=== PATIENT | male | born 1955 | race Caucasian/White ===

== ENCOUNTER 2018-03-03 07:00 | Day surgery (SDC) | payer OTHER ==
--- NOTE | 2018-02-27 16:42 | RAD REPORT ---
EXAM DESCRIPTION: Kendall Araujo (2 Views)02/27/2018 4:33 pm CLINICAL HISTORY: Hypertension/preop COMPARISON: 2012 FINDINGS: The lungs appear clear of acute infiltrate. The heart is normal size IMPRESSION: No acute abnormalities displayed
[2018-02-27 17:01] LABS: Absolute Lymphocytes (CBC) 1.4 K/uL (0.7-4.9); Absolute Monocytes 0.6 K/uL (0.1-1.3); Absolute Neutrophil 5.7 K/uL (1.8-8.0); Basophils % 1.3 % (0-1.3); Hematocrit 43.9 % (39.6-49.0); Lymphocytes % 16.9 % (15.3-44.8); MCH 27.5 pg (27.0-35.0); MCV 81.1 fL (80-100); MPV 8.7 fL (7.6-11.3); Monocytes % 6.7 % (3.3-12.3); RBC Red Blood Cell Count 5.42 M/uL (4.33-5.43)
[2018-02-27 17:05] LABS: Protime INR 0.96
[2018-02-27 17:11] LABS: Potassium 4.3 mEq/L (3.6-5.0)
--- NOTE | 2018-02-28 06:16 | EKG ---
Test Date: 2018-02-27 Test Time: 16:20:29 Supervisor Park Workers: DELFINO MEASUREMENT RESULTS: Intervals: Rate: 76 TX: 174 QRSD: 108 QT: 380 QTc: 427 [place]: P: 54 TX: 174 QRS: -44 T: 45 INTERPRETIVE STATEMENTS: Normal sinus rhythm Left axis deviation Incomplete right bundle branch block Abnormal ECG Compared to ECG 06/08/2006 03:07:00 Left-axis deviation now present Incomplete right bundle-branch block now present Myocardial infarct finding no longer present Electronically Signed On 02-28-18 06:15:56 CDT by Roderick Almaraz
[2018-03-03] MEDS ORDERED: HEPA 1000U/500MLS 2,000 UNIT/1,000 ML BAG IV ONE (07:08)
[2018-03-03] MEDS ORDERED: ATROPINE SULF 1 MG/10 ML SYR IV ONE (07:08)
[2018-03-03] MEDS ORDERED: LIDOCAINE 1% 20 ML MDV ONE ×2 (07:09→09:18)
[2018-03-03] MEDS ORDERED: NA CHLORIDE 0.9% 500 ML ONE (07:12)
[2018-03-03] MEDS ORDERED: FENTANYL CITR 100 MCG/2 ML ONE (07:53)
[2018-03-03] MEDS ORDERED: MIDAZOLAM HCL 2 MG/2 ML INJ ONE ×2 (07:53→08:02)
[2018-03-03] MEDS ORDERED: HEPARIN 5000 UNIT/ML 1 ML VIAL ONE (08:31)
[2018-03-03] MEDS ORDERED: PRASUGREL (EFFIENT) 10 MG TAB ONE (09:23)
--- NOTE | 2018-03-03 19:36 | OP ---
Surgeon: Roderick Almaraz MD Primary Care Physician: Dr. Grigsby. Procedure: Abdominal angiogram with runoffs and percutaneous transluminal angioplasty of the left po pliteal artery with a stent placement as well. Indications: Severe claudication. Procedure In Detail: The patient was brought to the cardiac labor relations officer in a fasting state and sedated with Versed and fentanyl. Right femoral approach was used. Artery was entered using an 18-gauge nee dle, modified Seldinger technique, 4-Maltese sheath and we used a 4-Maltese sheath to do the initial an giograms. Of course, we anesthetized the area with lidocaine before putting a needle in. Angiogram was done with injection in the descending aorta at the level of the renal arteries. The findings wer e renal arteries, iliacs are all fine. There were no aneurysm and no stenosis in those arteries. In the right artery, the SFA was patent. The popliteal artery had an 80% stenosis and distally, there IS small vessel disease. On the left, stents were patent in the proximal and distal SFA and at the p opliteal artery below the part of the artery that bends when the knee is flexed, there was a 90-95% s tenosis. This was treated with a stent eventually. After making a decision to do the procedure, we gave 5000 units of heparin. We exchanged for a 6-Maltese up and over sheath. We were able to get a g uidewire in place using a 6-Maltese COPELAND catheter. Several other attempts failed with 4-Maltese. We w ere able to put the up and over sheath down to the level of the common femoral artery, proximal to th e old stents. We crossed the lesion with a Glidewire. We pre-dilated with a balloon, 6.0 x 40 [place] a. We withdrew the balloon, took an angiogram. There was a lot of dissection, so we decided to depl oy a stent, a self-expanding stent was the only reasonable choice given that it is in a peripheral ar mariam close to a place that could be compressed. So, we used a 5.0 x 40 stent self deployed. We did not do any post-dilation. It looked great. There was not any need for it. We removed the up and ov er sheath, put a straight sheath, then took an angiogram of the right femoral artery, made the decisi on to close using Angio-Seal, that was done without complications. Estimated blood loss just 10 cc a nd post stenosis of the popliteal artery was 0%. Complications from the procedure were none. FRANK/INGRID Voice ID: [id number] Report ID: [id number]
== END 2018-03-03 13:07 | disposition home or self-care (01) ==
LOC: CCL 07:00
PROVIDERS: ATTEND Internal Medicine
DX: I70.213 Atherosclerosis of native arteries of extremities with intermittent claudication, bilateral legs (principal); I10 Essential (primary) hypertension; E78.2 Mixed hyperlipidemia; E11.9 Type 2 diabetes mellitus without complications; Z82.49 Family history of ischemic heart disease and other diseases of the circulatory system
CPT/HCPCS: 36415; 37226; 71046; 75630; 80048; 82962; 85025; 85610; 85730; 93005; C1725; C1760; C1769; C1887; C1893; J1644; J2250 ×2; J3010; 36200

== ENCOUNTER 2018-04-07 07:44 | Day surgery (SDC) | payer OTHER ==
[2018-04-04 11:09] LABS: Absolute Lymphocytes (CBC) 1.4 K/uL (0.7-4.9); Absolute Monocytes 0.7 K/uL (0.1-1.3); Absolute Neutrophil 5.1 K/uL (1.8-8.0); Basophils % 1.1 % (0-1.3); Eosinophils % 5.3 % (0-4.4); Hematocrit 43.6 % (39.6-49.0); Lymphocytes % 17.7 % (15.3-44.8); MCH 27.2 pg (27.0-35.0); MCV 82.5 fL (80-100); MPV 8.2 fL (7.6-11.3); Monocytes % 9.2 % (3.3-12.3); RBC Red Blood Cell Count 5.29 M/uL (4.33-5.43)
[2018-04-04 11:13] LABS: Protime INR 0.97
[2018-04-04 11:19] LABS: Potassium 4.2 mmol/L (3.5-5.1)
[2018-04-07] MEDS ORDERED: NA CHLORIDE 0.9% 500 ML ONE (08:14)
[2018-04-07] MEDS ORDERED: LIDOCAINE 2% MPF 5 ML VIAL ONE (08:46)
[2018-04-07] MEDS ORDERED: MIDAZOLAM HCL 2 MG/2 ML INJ ONE ×2 (08:54→09:12)
[2018-04-07] MEDS ORDERED: HEPA 1000U/500MLS 2,000 UNIT/1,000 ML BAG IV ONE (08:54)
[2018-04-07] MEDS ORDERED: FENTANYL CITR 100 MCG/2 ML ONE (08:55)
[2018-04-07] MEDS ORDERED: HEPARIN 5000 UNIT/ML 1 ML VIAL ONE (09:02)
[2018-04-07] MEDS ORDERED: ONDANSETRON 4 MG/2 ML VIAL ONE (10:22)
[2018-04-07] MEDS ORDERED: ATROPINE SULF 1 MG/10 ML SYR IV ONE (11:04)
[2018-04-07] MEDS ORDERED: HEPA 1000U/500MLS 1,000 UNIT/500 ML BAG IV ONE (11:57)
[2018-04-07] MEDS ORDERED: LIDOCAINE 1% MPF 5 ML VIAL ONE (13:12)
--- NOTE | 2018-04-09 18:54 | OP ---
Date of Procedure: 04/07/2018 Surgeon: Roderick Almaraz MD Procedure: Peripheral artery angioplasty and stent of a totally occluded right popliteal artery, suc cessful, less than 10% stenosis after the procedure. Procedural Findings: The patient had a stent in his left popliteal artery about a month ago. It was widely patent. His arteries all seemed to be doing well and instead of a 99% right popliteal stenos is, it was 100% occluded. After stenting with a Protege Everflex 5 x 40 self-expanding stent and aft er ballooning with a 3.0 balloon, there was an excellent angiographic result. Good blood flow throug h the popliteal artery. Procedure In Detail: The patient had severe claudication of his right leg, was brought to the [facility] director of cardiac cath lab in a fasting state, sedated with Versed, fentanyl, prepared and draped in the usual steril e fashion. Left femoral artery was palpated. Tissues around the artery were anesthetized with 1% li docaine. The artery was entered using an 18-gauge needle. We then inserted a 6-Argentine sheath. We a dvanced a pigtail catheter to the distal aorta and did an angiogram with runoffs. After the decision was made to do an angioplasty and stent to the right popliteal artery, The right iliac artery was ca nnulated with first a Terumo Glidewire, then a 6-Argentine multipurpose catheter was used to cannulate t he artery. We were able then to advance a Wholey wire into the distal part of the SFA on the right, again coming from the left. We then used this guide support to place and up and over catheter 6-Fren ch up and over sheath. The tip of the sheath was in the common femoral artery. We were then able to cross the lesion after multiple attempts. With various wires, we were able to cross with a Glidewir e. We dilated it with an [place] balloon. There was a good angiographic result. We decided to put a stent. We deployed a self expanding stent. We did not post dilate. The stent was 5.0, but it was limited by the size of the artery and the angiographic result was good, less than 10% residual stenos is. Normal distal flow, so all catheters were withdrawn. Angiograms taken. heparin 5000 units had been given at the beginning of the procedure. We withdrew the up and over sheath, placed a standard 6-Argentine sheath and after an angiogram of the femoral artery was done, we decided to close with a Sta rClose device. This was done without complications. The patient was allowed to go home on the same day. His followup will be in my office on April 10. No complications from the procedure. Estimated Blood Loss: 60 cc. Plywood Scarfer Tender: Lizette Pennington. FRANK/INGRID Voice ID: [id number] Report ID: [id number]
== END 2018-04-07 14:50 | disposition home or self-care (01) ==
LOC: CCL 07:44
PROVIDERS: ATTEND Internal Medicine
DX: I70.203 Unspecified atherosclerosis of native arteries of extremities, bilateral legs (principal); I70.92 Chronic total occlusion of artery of the extremities; I10 Essential (primary) hypertension; E78.2 Mixed hyperlipidemia; E11.9 Type 2 diabetes mellitus without complications; Z82.49 Family history of ischemic heart disease and other diseases of the circulatory system
CPT/HCPCS: 36415; 37226; 75630; 80048; 82962 ×2; 85025; 85610; 85730; C1725; C1887; C1893; J1644; J2250 ×2; J2405; J3010; 36200; 75960

== ENCOUNTER 2018-04-14 07:28 | Day surgery (SDC) | payer OTHER ==
[2018-04-14] MEDS ORDERED: NA CHLORIDE 0.9% 500 ML ONE ×2 (07:32→11:15)
[2018-04-14] MEDS ORDERED: FENTANYL CITR 100 MCG/2 ML ONE ×3 (08:21→15:31)
[2018-04-14] MEDS ORDERED: NICARDIPINE HCL 25 MG/10 ML IV ONE (08:21)
[2018-04-14] MEDS ORDERED: MIDAZOLAM HCL 2 MG/2 ML INJ ONE ×2 (08:21→10:14)
[2018-04-14] MEDS ORDERED: HEPARIN 5000 UNIT/ML 1 ML VIAL ONE (08:21)
[2018-04-14] MEDS ORDERED: NITROGLYCERIN/D5W 25 MG/250 ML BTL IV ONE (08:21)
[2018-04-14] MEDS ORDERED: LIDOCAINE 1% MPF 2 ML AMPULE ONE ×2 (09:20→12:27)
[2018-04-14] MEDS ORDERED: HEPA 1000U/500MLS 1,000 UNIT/500 ML BAG IV ONE (09:49)
[2018-04-14] MEDS ORDERED: ONDANSETRON 4 MG/2 ML VIAL ONE (11:02)
--- NOTE | 2018-04-14 11:04 | OP ---
Date of Procedure: 04/14/2018 Surgeon: Roderick Almaraz MD Procedure: Angioplasty and stent of the right popliteal artery 100% occluded. Findings: The artery was 100% occluded. Post dilation, there was no stenosis or less than 10%. The distal vessels below the popliteal are severely diffusely diseased. Distal flow was NICKOLAS grade 2. Procedure In Detail: The patient was brought to the cardiac fish farm laborer in a fasting state. We knew we would have to do an antegrade stick to reach the lesion, but in order to take our initial pictures, I elected for a radial approach and it allowed us to place a J-wire into the femoral arteries to help us guide for our antegrade femoral stick. Right radial approach was used, 1% lidocaine. A 21-gauge needle, a 0.021 inch wire, 6-Angolan Terumo radial sheath used to place a pigtail catheter in the jaden cending aorta just above the bifurcation. We did angiograms and left a long J-wire in the femoral ar mariam. We then turned our attention to the right femoral region. He is prepared and draped. A 1% li docaine was used to anesthetize the tissues. We used an antegrade approach, managed to get a guidewi re to go down the femoral artery from the antegrade approach, and then we put a 6-Angolan [address]. It was felt that the 10 cm sheath would be having an adequate length to be stable. I the n proceeded to cross the occluded lesion. It was difficult, but after about 45 minutes of trying, we got a Glidewire into the popliteal artery. We dilated the popliteal artery using a 3.0 x 40 [place] balloon. We did about 4 dilations. We then deployed a 5 x 80 Protege self-expanding stent. We did not post-dilate the stent and it is an excellent angiographic result. The stenosis itself is resolve d and the artery looks good beyond the anterior tibial artery and peroneal artery bifurcations, and i t really looks quite acceptable, although the distal vessels are diffusely diseased. We did not atte mpt to angioplasty or stent any mid calf vessels. The flow was good and we felt we made an improveme nt, so all catheters and wires were removed. The radial sheath removed. Arteriotomy closed with a TR band and the femoral sheath removed, and arteriotomy cl osed with manual pressure. SH/MODL Voice ID: [id number] Report ID: [id number]
[2018-04-14] MEDS ORDERED: HEPA 1000U/500MLS 2,000 UNIT/1,000 ML BAG IV ONE (12:26)
[2018-04-14] MEDS ORDERED: ACETAMINOPHEN 325 MG TABLET ONE (14:03)
[2018-04-14] MEDS ORDERED: GLUCAGON 1 MG/VIAL IM PRN (14:09)
[2018-04-14] MEDS ORDERED: D50W 25 GM/50 ML SYRINGE IV PRN (14:09)
[2018-04-14] MEDS ORDERED: INSULIN -REGULAR HUMAN 50 UNIT/0.5 ML ML SQ SCH (16:30)
== END 2018-04-14 17:30 | disposition home or self-care (01) ==
LOC: CCL 07:28
PROVIDERS: ATTEND Internal Medicine
PROC: 047M3DZ Dilation of Right Popliteal Artery with Intraluminal Device, Percutaneous Approach (ICD-10-PCS; principal; 2018-04-14)
DX: I70.203 Unspecified atherosclerosis of native arteries of extremities, bilateral legs (principal); E11.9 Type 2 diabetes mellitus without complications; I10 Essential (primary) hypertension; E78.5 Hyperlipidemia, unspecified
CPT/HCPCS: 37226; 75630; 82962 ×3; C1725; C1769; C1893; J1644; J2001 ×2; J2250 ×2; J2405; J3010 ×3

== ENCOUNTER 2018-07-23 06:46 | Day surgery (SDC) | payer OTHER ==
[2018-07-22 11:58] LABS: Absolute Lymphocytes (CBC) 1.1 K/uL (0.7-4.9); Absolute Monocytes 0.6 K/uL (0.1-1.3); Absolute Neutrophil 5.8 K/uL (1.8-8.0); Basophils % 1.1 % (0-1.3); Eosinophils % 4.3 % (0-4.4); Hematocrit 41.8 % (39.6-49.0); Lymphocytes % 13.5 % (15.3-44.8); MCH 27.3 pg (27.0-35.0); MCV 80.2 fL (80-100); MPV 8.3 fL (7.6-11.3); Monocytes % 7.8 % (3.3-12.3); RBC Red Blood Cell Count 5.21 M/uL (4.33-5.43)
[2018-07-22 12:01] LABS: Protime INR 1.13
[2018-07-22 12:12] LABS: Potassium 4.5 mmol/L (3.5-5.1)
[2018-07-23] MEDS ORDERED: HEPA 1000U/500MLS 2,000 UNIT/1,000 ML BAG IV ONE (07:11)
[2018-07-23] MEDS ORDERED: LIDOCAINE 1% MPF 30 ML VIAL ONE (07:11)
[2018-07-23] MEDS ORDERED: ATROPINE SULF 1 MG/10 ML SYR IV ONE (07:14)
[2018-07-23] MEDS ORDERED: NA CHLORIDE 0.9% 0 ML ONE (07:14)
[2018-07-23] MEDS ORDERED: FENTANYL CITR 100 MCG/2 ML ONE (07:14)
[2018-07-23] MEDS ORDERED: MIDAZOLAM HCL 2 MG/2 ML INJ ONE ×2 (07:14→08:09)
[2018-07-23] MEDS ORDERED: HEPARIN 5000 UNIT/ML 1 ML VIAL ONE (07:15)
[2018-07-23] MEDS ORDERED: NITROGLYCERIN/D5W 0 MG/0 ML BTL IV ONE (07:15)
[2018-07-23] MEDS ORDERED: NICARDIPINE HCL 25 MG/10 ML IV ONE (07:15)
[2018-07-23] MEDS ORDERED: NA CHLORIDE 0.9% 500 ML ONE (07:24)
--- NOTE | 2018-07-23 10:16 | RAD REPORT ---
EXAM DESCRIPTION: - CT ANGIO ABD/PELVIS W CONTRAST - 07/23/2018 9:34 am CLINICAL HISTORY: . Occlusion of aorta. No femoral arterial pulses COMPARISON: None TECHNIQUE: Computed tomography angiography of the abdomen cough pelvis and lower extremity to the k nees obtained. 100 cc Isovue 370 was administered intravenously. Coronal and sagittal reconstruction were performed. MIP 3D reconstruction was performed All CT scans are performed using dose optimization technique as appropriate and may include automated exposure control or mA/KV adjustment according to patient size. FINDINGS: An aortic dissection is not seen. An aortic aneurysm is not displayed. Minimal plaque is present within the aorta. Mild plaque is present within common, internal and external carotid arteries. The right common femoral artery is patent. Minimal plaque is present within the proximal and mid righ t superficial femoral artery. Mild to moderate plaque is present within the mid to distal right super ficial femoral artery. A stent has been placed into the distal right superficial femoral/popliteal ar mariam which is patent. Minimal plaque is present within the left common femoral artery. Mild plaque is present within the pr oximal left superficial femoral artery. Stents have been placed into the proximal and distal left sup erficial femoral artery. The stents are patent. Mild to moderate narrowing of the distal left superfi cial femoral artery. Left popliteal artery is patent. A left popliteal stent is in place. The celiac, SMA and LORENZO are patent . IMPRESSION: No acute vascular abnormality.
--- NOTE | 2018-07-23 10:18 | RAD REPORT ---
EXAM DESCRIPTION: Sol Ext Angio07/23/2018 9:55 am CLINICAL HISTORY: Aortic occlusion. Non palpable femoral pulse COMPARISON: None TECHNIQUE: 100 cc Isovue [address] angiogram of the abdomen, pelvis and lower extremity to the knees obtained. Coronal and sagittal reconstruction was done. 3D MIPS reconstruction performed All CT scans are performed using dose optimization technique as appropriate and may include automated exposure control or mA/KV adjustment according to patient size. FINDINGS: An aortic dissection is not seen. An aortic aneurysm is not displayed. Minimal plaque is present wit hin the aorta. Mild plaque is present within common, internal and external carotid arteries. The right common femoral artery is patent. Minimal plaque is present within the proximal and mid righ t superficial femoral artery. Mild to moderate plaque is present within the mid to distal right super ficial femoral artery. A stent has been placed into the distal right superficial femoral/popliteal ar mariam which is patent. Minimal plaque is present within the left common femoral artery. Mild plaque is present within the pr oximal left superficial femoral artery. Stents have been placed into the proximal and distal left sup erficial femoral artery. The stents are patent. Mild to moderate narrowing of the distal left superfi cial femoral artery. Left popliteal artery is patent. A left popliteal stent is in place. The celiac, SMA and LORENZO are patent . IMPRESSION: No acute vascular at abnormality
--- NOTE | 2018-07-23 12:25 | OP ---
Surgeon: Roderick Almaraz MD Mr. English was scheduled to have an abdominal angiogram with runoffs and possible COMPENSATION EXPERT because of wor sening peripheral vascular disease. This would be his third procedure in the last few months. Overn ight, Mr. English's symptoms got suddenly worse. When we attempted to do the procedure, after prep a nd drape, I could not feel any femoral pulses and before his pulses had been quite easy to feel, so I am concerned that there is an occlusion somewhere in the lower aorta or bilateral iliacs, so we are going to do a CT angio of the aorta and legs and see where to proceed. Most likely he will need chad r surgical intervention. We will get the angiogram first and see if there is any hope of doing an in tervention rather than surgery. FRANK/INGRID Voice ID: [id number] Report ID: [id number]
== END 2018-07-23 11:00 | disposition home or self-care (01) ==
LOC: CCL 06:46
PROVIDERS: ATTEND Internal Medicine
PROC: B40DYZZ Plain Radiography of Aorta and Bilateral Lower Extremity Arteries using Other Contrast (ICD-10-PCS; principal; 2018-07-23)
DX: I70.203 Unspecified atherosclerosis of native arteries of extremities, bilateral legs (principal); Z53.8 Procedure and treatment not carried out for other reasons; I10 Essential (primary) hypertension; E78.2 Mixed hyperlipidemia
CPT/HCPCS: 36200; 36415; 73706; 74174; 75630; 80048; 82962; 85025; 85610; 85730; J2250 ×2; J3010; Q9967; J0583; J1644

== ENCOUNTER 2024-03-21 15:10 | Emergency (ER) | payer OTHER ==
--- NOTE | 2024-03-21 16:11 | RAD REPORT ---
EXAM DESCRIPTION: CT - CTHCSPWOC - 03/21/2024 4:02 pm CLINICAL HISTORY: Trauma, head and neck injury. TRAUMA COMPARISON: <Comparisons> TECHNIQUE: Axial 5 mm thick images of the head were obtained. Axial 2 mm thick images of the cervical spine were obtained with sagittal and coronal reconstruction images generated and reviewed. All CT scans are performed using dose optimization technique as appropriate and may include automated exposure control or mA/KV adjustment according to patient size. FINDINGS: CT HEAD WITHOUT CONTRAST: No acute hemorrhage, hydrocephalus or extra-axial collection is identified.Moderate generalized brain atrophy is present with moderate periventricular and deep white matter chronic microvascular ischemi c changes.Gliosis is seen left parietal region likely from old infarct. The paranasal sinuses and mastoids are clear.The calvarium is intact. CT CERVICAL SPINE WITHOUT CONTRAST: No fracture or subluxation.Mild cervical degenerative changes.No prevertebral soft tissues swelling i s identified. IMPRESSION: No acute intracranial or cervical spine findings.
--- NOTE | 2024-03-21 16:21 | RAD REPORT ---
EXAM DESCRIPTION: RAD - Shoulder Right 2 View - 03/21/2024 4:06 pm CLINICAL HISTORY: PAIN COMPARISON: <Comparisons> FINDINGS: AC joint and glenohumeral joint degenerative changes are present, moderately severe. No ac [place] fracture or dislocation.
--- NOTE | 2024-03-21 16:24 | ER ---
Nurse's Notes [facility] Name: Donaldo English Age: 68 yrs Sex: Male : 1955 Arrival Date: 03/21/2024 Time: 15:10 Bed 16 Private MD: Diagnosis: Fall on same level, unspecified;Pain in right shoulder Presentation: 03/21 15:19 Chief complaint: EMS states: [place], unwitnessed fall. Hx of dementia. nj1 No LOC. Takes plavix. 15:19 Coronavirus screen: At this time, the client does not indicate any symptoms associated [facility] with coronavirus-19. Ebola Screen: Patient denies travel to an Ebola-affected area in the 21 days before illness onset. Risk Assessment: Do you want to hurt yourself or someone else? Patient reports no desire to harm self or others. Onset of symptoms was March 21, 2024. 15:19 Method Of Arrival: EMS: [facility] 15:19 Acuity: LILIANA 3 [facility] 15:33 Initial Sepsis Screen: Does the patient meet any 2 criteria? No. Patient's initial [facility] sepsis screen is negative. Does the patient have a suspected source of infection? No. Patient's initial sepsis screen is negative. Historical: - Allergies: 15:29 No Known Allergies; nj1 - PMHx: 15:29 Cerebrovascular accident; Dementia; Hemiplegia and hemiparesis, right side weakness; nj1 Hypothyroidism; Diabetes mellitus; Coronary atherosclerosis; Hypercholesterolemia; Hypertensive disorder; Seizure; schizoaffective disorder; Speech disturbances; - Immunization history:: Adult Immunizations unknown. - Infectious Disease History:: unable to obtain. - Social history:: Smoking status: unknown. Screenin:30 [facility] ED Fall Risk Assessment (Adult) History of falling in the last 3 months, [facility] including since admission Yes- fall prone (multiple falls) (3 pts) Confusion or Disorientation Yes (5 pts) Intoxicated or Sedated No (0 pts) Impaired Gait Yes (1 pt) Mobility Assist Device Used No (0 pt) Altered Elimination Yes (1 pt) Score/Fall Risk Level 3 or more points = High Risk Oriented to surroundings, Maintained a safe environment, Educated pt \T\ family on fall prevention, incl call for assistance when getting out of bed, Provided non-skid footwear, Hourly rounding (assess needs \T\ fall precautionary measures) done, Used ambulatory aids as needed (educated on \T\ assisted with), Remained w/in arm's length of patient and in sight while toileting, Remained with patient while ambulating, Utilized family, sitter, or virtual picker/puller as indicated. Abuse screen: Denies threats or abuse. Denies injuries from another. Nutritional screening: No deficits noted. Tuberculosis screening: No symptoms or risk factors identified. Assessment: 15:11 Reassessment: POA/Daughter Katia Rosario [phone] is in [place], alternate number [phone]. 15:30 General: Appears in no apparent distress. Behavior is calm. nj1 15:30 Pain: Complains of pain in right shoulder Unable to use pain scale. Patient is nj1 disoriented. Neuro: Level of Consciousness is awake, alert, confused, Oriented to person. Cardiovascular: Patient's skin is warm and dry. Respiratory: Airway is patent Respiratory effort is even, unlabored. 16:40 Reassessment: Call placed to patients daughter Katia to give update. All questions nj1 answered. 16:42 Reassessment: Spoke with nurse Brenda from [facility]. Update given. She will nj1 arrange transportation back to them. 16:50 Reassessment: Patient appears in no apparent distress at this time. Pt sitting on end nj1 of bed, has removed monitoring equipment. Awaiting discharge transportation. Vital Signs: 15:19 Weight 117.93 kg (R); nj1 15:24 BP 131 / 54; Pulse 61; Resp 18; Temp 98; Pulse Ox 98% on R/A; kj2 16:33 BP 132 / 79; Pulse 61; Resp 18; Pulse Ox 100% ; nj1 ED Course: 15:11 Patient arrived in ED. rs5 15:12 Shakila English FNP-C is PHCP. kb 15:12 Anton Ly MD is Attending Physician. kb 15:29 Triage completed. nj1 15:30 Patient has correct armband on for positive identification. Bed in low position. Call nj1 light in reach. Side rails up X 1. 15:33 Arm band placed on. nj1 16:04 CT Head C Spine In Process Unspecified. EDMS 16:08 Shoulder Right (2 View) XRAY In Process Unspecified. EDMS 16:32 Tracee Porter, RN is Primary Nurse. nj1 16:42 Provided Education on: discharge instructions given to nurse Brenda from [address] via phone. . 17:04 No provider procedures requiring assistance completed. nj1 18:11 spoke with Zion at [facility] he informed me that Christen let him know she bc6 called for transportation services and they gave her an ETA of 20 minutes at 1730. Administered Medications: No medications were administered Medication: 16:45 VIS not applicable for this client. nj Outcome: 16:23 Discharge ordered by MD. kb 18:37 Patient left the ED. Signatures: Dispatcher [employer] EDMS Shakila English, SERVICE CENTER MANAGER-C SERVICE CENTER MANAGER-CkTemi Layne, RN RN Obinna Hernandez RN RN rs5 Joestephen Jo 6 Tracee Porter, RN RN nj1 Savi Kirby, RN RN kj2 Corrections: (The following items were deleted from the chart) 16:44 16:34 General: Appears in no apparent distress. [facility] nj
--- NOTE | 2024-03-21 16:24 | EDPHYS ---
Physician Documentation [facility] Name: Donaldo English Age: 68 yrs Sex: Male : 1955 Arrival Date: 03/21/2024 Time: 15:10 Bed 16 Private MD: ED Physician Anton Ly HPI: 03/21 15:58 This 68 yrs old Male presents to ER via EMS with complaints of Fall Injury. kb 15:58 Pt is a 68 year old male who presents for right shoulder pain after an unw[facility] reports they heard pt fall and went right in. Pt denies hitting head, neck pain, back pain. Pt has a history of dementia but it is at baseline per EMS. Historical: - Allergies: 15:29 No Known Allergies; nj1 - PMHx: 15:29 Cerebrovascular accident; Dementia; Hemiplegia and hemiparesis, right side weakness; nj1 Hypothyroidism; Diabetes mellitus; Coronary atherosclerosis; Hypercholesterolemia; Hypertensive disorder; Seizure; schizoaffective disorder; Speech disturbances; - Immunization history:: Adult Immunizations unknown. - Infectious Disease History:: unable to obtain. - Social history:: Smoking status: unknown. ROS: 15:57 Constitutional: As per HPI kb Exam: 15:57 Constitutional: This is a well developed, well nourished patient who is awake, alert, kb and in no acute distress. Head/Face: Normocephalic, atraumatic. ENT: Moist Mucous membranes Cardiovascular: Regular rate Respiratory: Respirations even and unlabored. No increased work of breathing. Talking in full sentences Abdomen/GI: Soft, non-tender. No distention Skin: Warm, dry with normal turgor. Normal color. MS/ Extremity: Pulses equal, no cyanosis. Neurovascular intact. Full, normal range of motion. 15:57 Neuro: Exam negative for acute changes, Vital Signs: 15:19 Weight 117.93 kg (R); nj1 15:24 BP 131 / 54; Pulse 61; Resp 18; Temp 98; Pulse Ox 98% on R/A; kj2 16:33 BP 132 / 79; Pulse 61; Resp 18; Pulse Ox 100% ; nj1 MDM: 15:12 Patient medically screened. kb 15:57 Differential diagnosis: closed head injury, contusion, fracture. Data reviewed: vital kb signs, nurses notes. Historians other than the Patient: EMS: [facility]. 16:23 Counseling: I had a detailed discussion with the patient and/or guardian regarding the kb historical points, exam findings, and any diagnostic results supporting the discharge/admit diagnosis, radiology results, the need for outpatient follow up, a family practitioner, to return to the emergency department if symptoms worsen or persist or if there are any questions or concerns that arise at home. 03/21 15:13 Order name: CT Head C Spine; Complete Time: 16:14 kb 03/21 15:13 Order name: Shoulder Right (2 View) XRAY; Complete Time: 16:23 kb Administered Medications: No medications were administered Disposition: 19:04 Co-signature as Attending Physician, Anton Ly MD I reviewed the patient's care rn provided by the Advanced Practice Provider and agree with the diagnosis and treatment plan. Disposition Summary: 03/21/24 16:23 Discharge Ordered Notes: Location: Home kb Condition: Stable kb Diagnosis - Fall on same level, unspecified kb - Pain in right shoulder kb Followup: kb - With: Emergency Department - When: As needed - Reason: Worsening of condition Followup: kb - With: Private Physician - When: 2 - 3 days - Reason: Recheck today's complaints, Continuance of care, Re-evaluation by your physician Discharge Instructions: - Discharge Summary Sheet kb - Shoulder Pain, Qfpe-cf-Redq kb Forms: - Medication Reconciliation Form kb - Antibiotic Education kb - Prescription Opioid Use kb - Patient Portal Instructions kb - Leadership Thank You Letter kb Signatures: Dispatcher [employer] EDShakila Dowd, PADDLE DYEING MACHINE OPERATOR-C PADDLE DYEING MACHINE OPERATOR-Anton Torres MD MD rn Jaco, Norma RN RN nj1 Corrections: (The following items were deleted from the chart) 15:13 15:13 Head C Spine MPR Wo Con+CT.RAD.BRZ ordered. EDMS EDMS 15:13 15:13 Shoulder Right 2 View+RAD.RAD.BRZ ordered. EDMS EDMS
[2024-03-21 18:49] VITALS: BP 132/79; TEMP 98; O2SAT 100
== END 2024-03-21 18:37 | disposition home or self-care (01) ==
LOC: ER 15:10
DX: M25.511 Pain in right shoulder (principal); W18.30XA Fall on same level, unspecified, initial encounter
CPT/HCPCS: 70450; 72125; 99282

== ENCOUNTER 2024-05-19 17:44 | Inpatient (IN) | payer OTHER ==
[2024-05-19] MEDS ORDERED: NA CHLORIDE 0.9% 1,000 ML ONE (18:12)
[2024-05-19 18:34] LABS: Absolute Basophils 0.1 K/uL (0-0.5); Absolute Eosinophils 0.4 K/uL (0-0.5); Absolute Lymphocytes (CBC) 0.8 K/uL (0.7-4.9); Basophils % 0.7 % (0-1.3); Eosinophils % 3.8 % (0-4.4); Hematocrit 33.6 % (39.6-49.0); Hemoglobin 11.2 g/dL (13.6-17.9); Lymphocytes % 8.1 % (15.3-44.8); MCH 28.9 pg (27.0-35.0); MCHC 33.4 g/dL (32.0-36.0); MCV 86.6 fL (80-100); MPV 8.9 fL (7.6-11.3); Monocytes % 9.6 % (3.3-12.3); Neutrophils % 77.8 % (41.7-73.7); Platelets 170 thou/uL (152-406); RBC Red Blood Cell Count 3.88 M/uL (4.33-5.43); Red Cell Distribution Width 16.6 % (12.1-15.2)
[2024-05-19 18:36] LABS: ALT/SGPT 17 U/L (16-61); Alkaline Phosphatase 67 U/L (45-117); BUN Blood Urea Nitrogen 21 mg/dL (7-18); Bicarbonate 29 mEq/L (21-32); Bilirubin Total 0.7 mg/dL (0.2-1.0); Globulin 3.1 g/dL (2.3-3.5); Glomerular Filtration Rate 76 ml/min (=/>90); Glucose Level 301 mg/dL (74-106); Lipase 27 U/L (13-75); Protein, Total 6.1 g/dL (6.4-8.2); Sodium Level 140 mEq/L (136-145)
[2024-05-19 18:37] LABS: AST/SGOT < 10 U/L (15-37)
--- NOTE | 2024-05-19 19:03 | RAD REPORT ---
EXAM DESCRIPTION: CTAbdomen Pelvis W Contrast - 05/19/2024 6:55 pm CLINICAL HISTORY: Abdominal pain. ABD PAIN COMPARISON: <Comparisons> TECHNIQUE: Biphasic CT imaging of the abdomen and pelvis was performed with 100 ml non-ionic IV cont rast. All CT scans are performed using dose optimization technique as appropriate and may include automated exposure control or mA/KV adjustment according to patient size. FINDINGS: The lung bases are clear. The liver, spleen, pancreas, adrenal glands and kidneys are within normal limits. Cholelithiasis. No bowel obstruction, free air, free fluid or abscess. The appendix is not identified as a discrete s tructure, however, no secondary findings of appendicitis are identified. There is severe distention of the entire colon visualized. The stomach is also markedly distended. No evidence of significant l ymphadenopathy. No suspicious bony findings. IMPRESSION: Severe distention of the colon could be toxic megacolon. Severe distention of the stomach also noted, indeterminate. Cholelithiasis. Cholelithiasis.
--- NOTE | 2024-05-19 19:47 | ER ---
Nurse's Notes [facility] Name: Donaldo English Age: 68 yrs Sex: Male : 1955 Arrival Date: 05/19/2024 Time: 17:44 Bed 16 Private MD: Diagnosis: Severe colonic distention Presentation: 05/19 17:45 Chief complaint: EMS states: toned out for abdominal pain to [facility]. c/o LUQ pain me1 and diarrhea that started today. Coronavirus screen: Vaccine status: Patient reports receiving the 2nd dose of the covid vaccine. Ebola Screen: No symptoms or risks identified at this time. Initial Sepsis Screen: Does the patient meet any 2 criteria? No. Patient's initial sepsis screen is negative. Does the patient have a suspected source of infection? No. Patient's initial sepsis screen is negative. Risk Assessment: Do you want to hurt yourself or someone else? Patient reports no desire to harm self or others. Onset of symptoms was May 19, 2024. 17:45 Method Of Arrival: EMS: [facility] wi1 17:45 Acuity: LILIANA 3 me1 Triage Assessment: 17:47 General: Appears comfortable, well groomed, well developed, well nourished, Behavior is me1 calm, cooperative, appropriate for age, Reports LUQ pain earlier today. Denies pain at this time. Diarrhea that started today. Pain: Complains of pain in left upper quadrant Pain does not radiate. Pain currently is 0 out of 10 on a pain scale. at worst was 7 out of 10 on a pain scale. Quality of pain is described as crampy, sharp, Pain began suddenly, Is intermittent. EENT: No signs and/or symptoms were reported regarding the EENT system. Neuro: Level of Consciousness is awake, alert, obeys commands, Oriented to person, place, time, situation, Appropriate for age. Cardiovascular: Patient's skin is warm and dry. Respiratory: Airway is patent Respiratory effort is even, unlabored, Respiratory pattern is regular, symmetrical. GI: Reports upper abdominal pain, diarrhea. : No signs and/or symptoms were reported regarding the genitourinary system. Derm: Skin is intact, is healthy with good turgor, Skin is pink, warm \T\ dry. Musculoskeletal: No signs and/or symptoms reported regarding the musculoskeletal system. Historical: - Allergies: 17:47 No Known Allergies; me1 - PMHx: 17:47 Cerebrovascular accident; coronary atherosclerosis; Dementia; diabetes mellitus; me1 Hemiplegia and hemiparesis; Hypercholesterolemia; Hypertensive disorder; schizoaffective disorder; Hypothyroidism; Speech disturbances; Seizure; right sided weakness; - Immunization history:: Adult Immunizations up to date. - Infectious Disease History:: Denies. - Social history:: Smoking status: unknown. - Family history:: not pertinent. Screenin:49 [facility] ED Fall Risk Assessment (Adult) History of falling in the last 3 months, me1 including since admission No falls in past 3 months (0 pts) Confusion or Disorientation No (0 pts) Intoxicated or Sedated No (0 pts) Impaired Gait Yes (1 pt) Mobility Assist Device Used Yes (1 pt) Altered Elimination No (0 pt) Score/Fall Risk Level 0 - 2 = Low Risk Maintained a safe environment, Provided non-skid footwear, Hourly rounding (assess needs \T\ fall precautionary measures) done. Abuse screen: Denies threats or abuse. Nutritional screening: No deficits noted. Tuberculosis screening: No symptoms or risk factors identified. Assessment: 17:49 General: See triage assessment. . me1 17:51 GI: Bowel sounds present X 4 quads. Abd is soft and non tender X 4 quads. me1 20:34 General: Appears in no apparent distress. comfortable, Behavior is cooperative, lg3 confused. Pain: Denies pain. Neuro: Carty Agitation-Sedation Scale (RASS): 0 - Alert and Calm Level of Consciousness is awake, obeys commands, confused, Oriented to person, place. Cardiovascular: No deficits noted. Denies chest pain, shortness of breath, Capillary refill < 3 seconds Clubbing of nail beds is absent JVD is absent Patient's skin is warm and dry. Respiratory: No deficits noted. Airway is patent Respiratory effort is even, unlabored, Respiratory pattern is regular, symmetrical. GI: Abdomen is round distended, Bowel sounds hyperactive in right upper quadrant and left upper quadrant. GI: Reports diarrhea. : No deficits noted. No signs and/or symptoms were reported regarding the genitourinary system. EENT: No deficits noted. No signs and/or symptoms were reported regarding the EENT system. Derm: No deficits noted. No signs and/or symptoms reported regarding the dermatologic system. Skin is intact, is healthy with good turgor, Skin is dry, Skin is normal, Skin temperature is warm. Musculoskeletal: No signs and/or symptoms reported regarding the musculoskeletal system. Circulation, motion, and sensation intact. Range of motion: intact in all extremities. 22:21 General: PT self removed NG tube X2. provider notified. . lg3 Vital Signs: 17:45 BP 138 / 76; Pulse 74; Resp 16; Temp 97.7; Pulse Ox 100% on R/A; Weight 96.16 kg; me1 Height 5 ft. 8 in. ; Pain 0/10; 18:00 BP 127 / 74; Pulse 80; Resp 16; Pulse Ox 100% on R/A; me1 21:15 BP 122 / 69; Pulse 73; Resp 15 S; Pulse Ox 100% on R/A; lg3 17:45 Body Mass Index 32.23 (96.16 kg, 172.72 cm) me1 17:45 Pain Scale: Adult wi1 ED Course: 17:45 Patient arrived in ED. me1 17:45 Dominic Thorpe MD is Attending Physician. rt 17:47 Triage completed. me1 17:47 Arm band placed on Patient placed in an exam room. me1 17:50 No provider procedures requiring assistance completed. Maintain EMS IV. Dressing me1 intact. Good blood return noted. Site clean \T\ dry. Gauge \T\ site: 20g LAC. Flushed with 10 mL NS. 17:51 Patient has correct armband on for positive identification. Bed in low position. [place] [facility] [place]. Side rails up X2. Provided Education on: POC. Verbalized understanding. . 18:05 Chio Hernandez, RN is Primary Nurse. me1 18:10 CBC with Diff Sent. me1 18:10 CMP Sent. me1 18:10 Lipase Sent. me1 18:10 Initial lab(s) drawn, by wi, sent to lab. me1 18:56 CT Abd/Pelvis - IV Contrast Only In Process Unspecified. EDMS 19:45 Josefina Godoy MD is Hospitalizing Provider. rt 20:02 Lactate w/ 2H reflex if indic. Sent. lg3 20:34 Pulse ox on. NIBP on. Door closed. Noise minimized. Warm blanket given. Repositioned lg3 patient. Cleaned of incontinence. Linen changed. 20:34 NGT: inserted 18 Fr. via left nare. verified placement of air over stomach, verified lg3 return of gastric contents, Placement verified by X-ray, to intermittent suction. Returned gastric contents. Patient tolerated well. IV is patent, with good blood return, Flushed left antecubital. 20:39 Abdomen Single View In Process Unspecified. EDMS 23:04 Patient admitted, IV remains in place. lg3 Administered Medications: 18:15 Drug: NS 0.9% IV 1000 ml IV at 1 bolus Per protocol; 1000 mL bolus Route: IV; Rate: 1 me1 bolus; Site: left antecubital; 22:23 Follow up: Response: No adverse reaction; IV Status: Completed infusion; IV Intake: lg3 1000ml 20:33 Drug: Dulcolax HI Suppository 10 mg HI once Route: HI; lg3 21:15 Follow up: Response: No adverse reaction; No change in condition lg3 20:34 Drug: metroNIDAZOLE IVPB 500 mg 100 ml IVPB at 200 ml/hr once over 30 mins Volume: 100 lg3 ml; Route: IVPB; Rate: 200 ml/hr; Infused Over: 30 mins; Site: left antecubital; 21:16 Follow up: Response: No adverse reaction; IV Status: Completed infusion; IV Intake: lg3 100ml Medication: 17:49 VIS not applicable for this client. me1 Intake: 21:16 IV: 100ml; Total: 100ml. lg3 22:23 IV: 1000ml; Total: 1100ml. lg3 Outcome: 19:46 Decision to Hospitalize by Provider. rt 23:03 Admitted to Med/surg accompanied by tech, via stretcher, room 420, lg3 23:03 Condition: stable 23:03 Instructed on the need for admit, Demonstrated understanding of instructions, 23:04 Patient left the ED. lg3 Signatures: Dispatcher [employer] EDDenita Valle RN RN lg3 Dominic Thorpe MD MD rt Chio Hernandez RN RN me1 Corrections: (The following items were deleted from the chart) 17:48 17:47 PMHx: Hemiplegia and hemiparesis; me1 me1 17:48 17:47 PMHx: Hemiplegia and hemiparesis; me1 me1 17:48 17:47 PMHx: Hemiplegia and hemiparesis; me1 me1 17:48 17:47 PMHx: Hemiplegia and hemiparesis; me1 me1 17:48 17:47 PMHx: Hemiplegia and hemiparesis; me1 me1
--- NOTE | 2024-05-19 19:47 | EDPHYS ---
Physician Documentation [facility] Name: Donaldo English Age: 68 yrs Sex: Male : 1955 Arrival Date: 05/19/2024 Time: 17:44 Bed 16 Private MD: ED Physician Dominic Thorpe HPI: 05/19 18:16 This 68 yrs old Male presents to ER via EMS with complaints of Abd Pain > 50 y/o. rt 18:16 Patient presents to the ED from [facility] for a left-sided abdominal pain, rt diarrhea, described as watery, foul, green starting today. He has not been on antibiotics recently nor his he had reported contact with the C. difficile patient. Denies other acute complaints at this time, symptoms are moderate in severity, no other aggravating or alleviating factors. States that he no other has any pain currently.. Historical: - Allergies: 17:47 No Known Allergies; me1 - PMHx: 17:47 Cerebrovascular accident; coronary atherosclerosis; Dementia; diabetes mellitus; me1 Hemiplegia and hemiparesis; Hypercholesterolemia; Hypertensive disorder; schizoaffective disorder; Hypothyroidism; Speech disturbances; Seizure; right sided weakness; - Immunization history:: Adult Immunizations up to date. - Infectious Disease History:: Denies. - Social history:: Smoking status: unknown. - Family history:: not pertinent. ROS: 18:16 Constitutional: Negative for fever, chills, and weight loss, Cardiovascular: Negative rt for chest pain, palpitations, and edema, Respiratory: Negative for shortness of breath, cough, wheezing, and pleuritic chest pain, MS/Extremity: Negative for injury and deformity, Skin: Negative for injury, rash, and discoloration, Neuro: Negative for headache, weakness, numbness, tingling, and seizure, 18:16 Abdomen/GI: Positive for abdominal pain, diarrhea, Exam: 18:16 Constitutional: This is a well developed, well nourished patient who is awake, alert, rt and in no acute distress. Head/Face: Normocephalic, atraumatic. Chest/axilla: Normal chest wall appearance and motion. Nontender with no deformity. No lesions are appreciated. Cardiovascular: Regular rate and rhythm with a normal S1 and S2. No gallops, murmurs, or rubs. Normal PMI, no JVD. No pulse deficits. Respiratory: Lungs have equal breath sounds bilaterally, clear to auscultation and percussion. No rales, rhonchi or wheezes noted. No increased work of breathing, no retractions or nasal flaring. Skin: Warm, dry with normal turgor. Normal color with no rashes, no lesions, and no evidence of cellulitis. MS/ Extremity: Pulses equal, no cyanosis. Neurovascular intact. Full, normal range of motion. Neuro: Awake and alert, GCS 15, oriented to person, place, time, and situation. Cranial nerves II-XII grossly intact. Motor strength 5/5 in all extremities. Sensory grossly intact. Cerebellar exam normal. Normal gait. 18:16 Abdomen/GI: Mildly distended without tenderness, Vital Signs: 17:45 BP 138 / 76; Pulse 74; Resp 16; Temp 97.7; Pulse Ox 100% on R/A; Weight 96.16 kg; me1 Height 5 ft. 8 in. ; Pain 0/10; 18:00 BP 127 / 74; Pulse 80; Resp 16; Pulse Ox 100% on R/A; me1 21:15 BP 122 / 69; Pulse 73; Resp 15 S; Pulse Ox 100% on R/A; lg3 17:45 Body Mass Index 32.23 (96.16 kg, 172.72 cm) me1 17:45 Pain Scale: Adult me1 MDM: 17:46 Patient medically screened. rt 20:00 Differential Diagnosis C. difficile, pseudoobstruction, constipation. Data reviewed: rt vital signs, nurses notes, lab test result(s), radiologic studies. Consideration of Admission/Observation Patient was admitted/placed on observation. Management of patient was discussed with the following: Inspector Type: Discussed with Dr. Flores who reviewed the images, recommends NG tube, lactate order, Dulcolax suppository, admission to the hospital. I considered the following discharge prescriptions or medication management in the emergency department Medications were administered in the Emergency Department. See MAR. Independent interpretation of the following test(s) in the Emergency Department CT Scan: My interpretation is Severe colonic distention noted. Care significantly affected by the following chronic conditions: Dementia. Counseling: I had a detailed discussion with the patient and/or guardian regarding the historical points, exam findings, and any diagnostic results supporting the discharge/admit diagnosis, lab results, radiology results, the need for further work-up and treatment in the hospital. Response to treatment: There is no appreciated change of the patient's symptoms at this time. 05/19 17:47 Order name: CBC with Diff; Complete Time: 19:16 rt 05/19 17:47 Order name: CMP; Complete Time: 19:16 rt 05/19 17:47 Order name: Lipase; Complete Time: 19:16 rt 05/19 17:47 Order name: CDIFF rt 05/19 19:25 Order name: Lactate w/ 2H reflex if indic. rt 05/19 21:23 Order name: Lactate w/ 2H reflex if indic. EDMS 05/19 21:23 Order name: T4 Free EDMS 05/19 21:23 Order name: Thyroid Stimulating Hormone EDMS 05/19 21:23 Order name: Urinalysis w/ reflexes EDMS 05/19 21:23 Order name: CBC with Automated Diff EDMS 05/19 21:23 Order name: CBC with Automated Diff EDMS 05/19 21:23 Order name: Comprehensive Metabolic Panel EDMS 05/19 21:23 Order name: Comprehensive Metabolic Panel EDPR 05/19 17:47 Order name: CT Abd/Pelvis - IV Contrast Only; Complete Time: 19:16 rt 05/19 20:35 Order name: Abdomen Single View EDMS 05/19 22:08 Order name: Abdomen 1 View XRAY rv1 05/19 17:47 Order name: IV Saline Lock; Complete Time: 18:10 rt 05/19 17:47 Order name: Labs collected and sent; Complete Time: 18:10 rt 05/19 19:41 Order name: NG Tube; Complete Time: 20:34 rt Administered Medications: 18:15 Drug: NS 0.9% IV 1000 ml IV at 1 bolus Per protocol; 1000 mL bolus Route: IV; Rate: 1 me1 bolus; Site: left antecubital; 22:23 Follow up: Response: No adverse reaction; IV Status: Completed infusion; IV Intake: lg3 1000ml 20:33 Drug: Dulcolax MN Suppository 10 mg MN once Route: MN; lg3 21:15 Follow up: Response: No adverse reaction; No change in condition lg3 20:34 Drug: metroNIDAZOLE IVPB 500 mg 100 ml IVPB at 200 ml/hr once over 30 mins Volume: 100 lg3 ml; Route: IVPB; Rate: 200 ml/hr; Infused Over: 30 mins; Site: left antecubital; 21:16 Follow up: Response: No adverse reaction; IV Status: Completed infusion; IV Intake: lg3 100ml Disposition Summary: 05/19/24 19:46 Hospitalization Ordered Notes: Hospitalization Status: Inpatient Admission rt Provider: Josefina Godoy rt [facility] rt Condition: Fair rt Problem: new rt Symptoms: have improved rt Bed/Room Type: Standard rt Room Assignment: 420(05/19/24 21:30) cg Diagnosis - Severe colonic distention rt Forms: - Medication Reconciliation Form rt - SBAR form rt - Leadership Thank You Letter rt Signatures: Dispatcher [employer] Court Rubin RN RN cg Denita Jesus RN RN lg3 Dominic Thorpe MD MD rt Chio Hernandez RN RN me1 Corrections: (The following items were deleted from the chart) 17:48 17:48 Abdomen Pelvis W Con+CT.RAD.BRZ ordered. EDMS EDMS 17:48 17:47 PMHx: Hemiplegia and hemiparesis; me1 me1 17:48 17:47 PMHx: Hemiplegia and hemiparesis; me1 me1 17:48 17:47 PMHx: Hemiplegia and hemiparesis; me1 me1 17:48 17:47 PMHx: Hemiplegia and hemiparesis; me1 me1 17:48 17:47 PMHx: Hemiplegia and hemiparesis; me1 me1 21:30 19:46 rt cg
[2024-05-19] MEDS ORDERED: METRONIDAZOLE 500mg IVPB 500 MG/100 ML BAG IV ONE (19:48)
[2024-05-19] MEDS ORDERED: BISACODYL 10 MG RECTAL SUPP ONE (19:48)
--- NOTE | 2024-05-19 20:45 | RAD REPORT ---
EXAM DESCRIPTION: RAD - Abdomen Single View - 05/19/2024 8:37 pm CLINICAL HISTORY: NG Tube placement Pain COMPARISON: <Comparisons> FINDINGS: Tip of the enteric tube is in the stomach.
--- NOTE | 2024-05-19 20:47 | P.HP ---
Certification for Inpatient With expected LOS: >2 Midnights Practitioner: I am a practitioner with admitting privileges, knowledge of patient current condition, hospital course, and medical plan of care. Services: Services provided to patient in accordance with Admission requirements found in Title 42 Section 412.3 of the Code of Federal Regulations Patient History Date of Service: 05/19/24 Reason for admission: diarrhea History of Present Illness: 68-year-old male [facility] with complaints of abdominal pain, diarrhea. He resides at [facility] [place]. Abdominal pain was described as left-sided. History limited secondary to dementia. The patient does deny currently in the ER of abdominal pain or nausea. No recent contact with C. difficile patients or antibiotics. In the ER labs were done he did not have a leukocytosis. A CT scan of the abdomen pelvis was done. Which showed distention. Differentials included were toxic megacolon. Surgery was consulted. An NG tube was placed. He was noted to have some bloody fluid. Concern for trauma. Allergies No Known Allergies Allergy (Verified 07/22/18 11:14) Home Medications: Atorvastatin Calcium 40 mg PO DAILY 05/31/21 Clopidogrel Bisulfate [Plavix] 75 mg PO DAILY 05/31/21 Famotidine [Pepcid] 20 mg PO BID 05/31/21 Furosemide [Lasix] 20 mg PO BID 05/31/21 Insulin Glargine,Hum.rec.anlog [Lantus] 40 unit SQ BID 05/31/21 Levetiracetam [Keppra] 750 mg PO BID 05/31/21 Levothyroxine Sodium [Levothyroxine] 100 mcg PO DAILY 05/31/21 Metoprolol Tartrate 50 mg PO BID 05/31/21 PARoxetine HCL [Paroxetine HCl] 20 mg PO DAILY 05/31/21 Pantoprazole Sodium [Protonix] 40 mg PO DAILY 05/31/21 - Past Medical/Surgical History Diabetic: Yes -: cva -: tia -: gallstones -: diabetic retinopathy -: depression -: thyroid disease -: CABG -: thyoidectomy -: right 5th toe amputation -: BLE stents - Social History Alcohol use: No Review of Systems 10-point ROS is otherwise unremarkable Eyes: Unremarkable ENT: Unremarkable Gastrointestinal: Abdominal Pain, Diarrhea Genitourinary: Unremarkable Physical Examination - Physical Exam General: Alert, Oriented x2 HEENT: Atraumatic, Normocephalic Neck: Supple Respiratory: Clear to auscultation bilaterally, Normal air movement Cardiovascular: Regular rate/rhythm, Normal S1 S2 Gastrointestinal: Normal bowel sounds, Distended Musculoskeletal: No clubbing Integumentary: Other Neurological: Normal speech - Studies Laboratory Data (last 24 hrs) 05/19/24 05/19/24 18:08 18:08 WBC 10.20 Hgb 11.2 L Hct 33.6 L Plt Count 170 Sodium 140 Potassium 4.0 BUN 21 H Creatinine 1.07 Glucose 301 H Total Bilirubin 0.7 AST < 10 L ALT 17 Alkaline Phosphatase 67 Lipase 27 Assessment and Plan - Problems (Diagnosis) (1) Abdominal pain Current Visit: Yes Status: Acute (2) Diarrhea Current Visit: Yes Status: Acute (3) Diabetes Current Visit: No Status: Acute (4) History of CVA (cerebrovascular accident) Current Visit: No Status: Acute (5) Hypertension Current Visit: No Status: Acute (6) Hypothyroidism Current Visit: No Status: Acute (7) Type 2 diabetes mellitus with diabetic peripheral angiopathy without gangrene Current Visit: No Status: Acute - Plan 68-year-old male with history of CVA, coronary disease, dementia, diabetes, schizoaffective disorder presents with abdominal pain, distention and reported diarrhea. #abdominal pain #distension #diarrhea #abnormal CT abdomen pelvis -- Admit to [facility] with telemetry -- Differentials include obstruction, toxic megacolon cannot be ruled out. Stool not foul odor no leukocytosis -- Surgery consulted -- GI not available -- Continue Flagyl -- Follow-up lactate, serial labs -- NG tube to secretion, suppository -- Follow-up stool studies #DM -- Fingerstick blood sugars, sliding scale insulin #CVA #CAD -- Restart home medications once medication reconciliation completed #hypothyroidism -- Check TSH --Home medications #Dementia #schizoaffective disorder -- Patient oriented x 2 Code:DNR DVT:SCDs (noted to have bloody fluid NGT) Discharge Plan: Detention Plan to discharge in: 48 Hours - Advance Directives Does patient have a Living Will: No Does patient have a Durable POA for Healthcare: No
[2024-05-19] MEDS ORDERED: GLUCAGON 1 MG/VIAL IM PRN (21:23)
[2024-05-19] MEDS: NA CHLORIDE 0.9% 1,000 ML IV SCH (23:50)
[2024-05-20] MEDS: METRONIDAZOLE 500mg IVPB 500 MG/100 ML BAG IV SCH (01:19)
[2024-05-20] MEDS: INSULIN REGULAR (HUMAN) 100 UNIT/ML SQ SCH (07:30)
[2024-05-20 09:55] LABS: Absolute Eosinophils 0.3 K/uL (0-0.5); Absolute Lymphocytes (CBC) 0.8 K/uL (0.7-4.9); Absolute Monocytes 0.9 K/uL (0.1-1.3); Basophils % 0.5 % (0-1.3); Eosinophils % 3.1 % (0-4.4); Hematocrit 32.7 % (39.6-49.0); Lymphocytes % 9.3 % (15.3-44.8); MCHC 33.8 g/dL (32.0-36.0); MPV 8.2 fL (7.6-11.3); Monocytes % 10.1 % (3.3-12.3); Platelets 166 thou/uL (152-406); Red Cell Distribution Width 16.8 % (12.1-15.2)
[2024-05-20 10:12] LABS: AST/SGOT 11 U/L (15-37); Albumin 2.9 g/dL (3.4-5.0); Alkaline Phosphatase 49 U/L (45-117); Anion Gap 9.4 mEq/L (5.0-15.0); BUN Blood Urea Nitrogen 18 mg/dL (7-18); Bicarbonate 28 mEq/L (21-32); Bilirubin Total 0.8 mg/dL (0.2-1.0); Globulin 2.8 g/dL (2.3-3.5); Glomerular Filtration Rate 99 ml/min (=/>90); Glucose Level 102 mg/dL (74-106); Potassium 3.4 mEq/L (3.5-5.1); Protein, Total 5.7 g/dL (6.4-8.2); Sodium Level 145 mEq/L (136-145)
[2024-05-20 10:17] LABS: ALT/SGPT < 14 U/L (16-61)
[2024-05-20] MEDS: CIPROFLOXACIN 400mg IV 400 MG/200 ML BAG IV SCH (14:36)
[2024-05-20] MEDS ORDERED: VALPROATE SODIUM IV SCH (17:00)
[2024-05-20] MEDS ORDERED: NA CHLORIDE 0.9% IV SCH (17:00)
--- NOTE | 2024-05-20 17:00 | P.PN ---
Subjective Date of Service: 05/20/24 Chief Complaint: diarrhea Patient have had multiple watery diarrhea today. He denies abdominal pain He has been afebrile Nursing staff report patient has some hard stools mixed with watery diarrhea. Physical Examination - Vital Signs Temperature: 98.0 F Blood Pressure: 149/67 Pulse: 73 Respirations: 15 Pulse Ox (%): 100 - Studies Laboratory Data (last 24 hrs) 05/19/24 05/19/24 18:08 18:08 WBC 10.20 Hgb 11.2 L Hct 33.6 L Plt Count 170 Sodium 140 Potassium 4.0 BUN 21 H Creatinine 1.07 Glucose 301 H Total Bilirubin 0.7 AST < 10 L ALT 17 Alkaline Phosphatase 67 Lipase 27 Assessment And Plan - Plan Physical examination General: Alert and oriented x3, NAD, HEENT: Conjunctiva not pale, anicteric sclera Neck: Supple, no elevated JVD Heart: Heart sounds 1 and 2 normal, regular rhythm, normal rate, no pedal edema Lungs: Clear to auscultation bilaterally, adequate breath sounds bilaterally, no rhonchi or crackles. Abdomen: Soft, distended, nontender, normal bowel sounds. Extremities: No tenderness, no deformity Skin: Normal skin turgor, no rash, no nodules or ulcers. Neuro: No focal motor deficit. Normal speech. Psychiatry: Normal mood, no agitation. Diagnosis Megacolon-unknown diagnosis Gastric distention Anemia Hypothyroid state. History of seizures History of CVA Diabetes mellitus type 2 Hypokalemia Plan: Megacolon Gastric distention Hypokalemia Unknown etiology Likely related to gastric motility given involvement of multiple regions of the GI tract. Toxic megacolon is unlikely given no fever and no leukocytosis and no abdominal pain. General surgery Dr. Flores input appreciated. Keep n.p.o. Patient removed his NG tube and declined further insertion. Bowel obstruction is unlikely. Consider Reglan to improve intestinal motility. Monitor and optimize electrolytes, keep potassium level greater than 4. Stool for C. difficile is pending. Hypothyroidism TSH is significantly elevated. Increase levothyroxine to 150 mcg once diet is resumed. Will use IV levothyroxine for the meantime. History of seizures Resume home antiseizure medications as IV as patient is n.p.o. History of CVA Antiplatelet on hold given n.p.o. status Diabetes mellitus type 2 Insulin sliding scale for now as patient is n.p.o. DVT prophylaxis: Heparin SQ Advanced directive: full code. Time spent managing patient acute care conditions: 41 minutes.
[2024-05-20] MEDS: levETIRAcetam 750 MG in NA CHLORIDE 0.9% 100 ML IV SCH (18:34)
[2024-05-20] MEDS: VALPROATE SODIUM IV SCH (21:44)
[2024-05-20] MEDS: NA CHLORIDE 0.9% IV SCH (21:44)
[2024-05-20 23:20] LABS: C.diff Antigen/Toxin Ag neg : Tox neg (NEG : NEG); CDIFF INTERNAL NEG CONTROL White Background (WHITE BKGD); STOOL CONSISTENCY Liquid/Semi-Solid
[2024-05-21] MEDS: HEPARIN 5000 UNIT/ML 1 ML VIAL SQ SCH (01:00)
[2024-05-21] MEDS: D10W 125 ML IV PRN (01:05)
[2024-05-21] MEDS: LEVOTHYROXINE SODIUM 100 MCG VIAL IV SCH (06:22)
--- NOTE | 2024-05-21 07:24 | RAD REPORT ---
EXAM DESCRIPTION: RAD - Abdomen 1 View (KUB) - 05/21/2024 6:04 am CLINICAL HISTORY: Abdomen pain FINDINGS: Sigmoid colon measures approximately 10 centimeters. Descending colon 7.5 centimeters. The remainder of colon caliber appears normal. Small bowel caliber normal
[2024-05-21 07:34] LABS: Absolute Basophils 0.1 K/uL (0-0.5); Absolute Eosinophils 0.3 K/uL (0-0.5); Absolute Lymphocytes (CBC) 0.9 K/uL (0.7-4.9); Absolute Monocytes 0.8 K/uL (0.1-1.3); Absolute Neutrophil 6.2 K/uL (1.8-8.0); Basophils % 0.7 % (0-1.3); Eosinophils % 3.6 % (0-4.4); Hematocrit 33.3 % (39.6-49.0); Hemoglobin 10.8 g/dL (13.6-17.9); Lymphocytes % 10.9 % (15.3-44.8); MCH 28.2 pg (27.0-35.0); MCHC 32.5 g/dL (32.0-36.0); MCV 86.7 fL (80-100); MPV 8.6 fL (7.6-11.3); Monocytes % 9.7 % (3.3-12.3); Neutrophils % 75.1 % (41.7-73.7); Platelets 141 thou/uL (152-406); RBC Red Blood Cell Count 3.84 M/uL (4.33-5.43); Red Cell Distribution Width 16.6 % (12.1-15.2)
[2024-05-21 07:46] LABS: Anion Gap 8.8 mEq/L (5.0-15.0); Magnesium 2.1 mg/dL (1.6-2.4); Phosphorus 2.6 mg/dL (2.5-4.9); Potassium 2.8 mEq/L (3.5-5.1)
[2024-05-21] MEDS ORDERED: PETROLATUM (AQUAPHOR) JAR 396 GRAM TOP PRN (09:00)
[2024-05-21] MEDS: PIPER TAZO 3.375 GM in NA CHLORIDE 0.9% 100 ML IV SCH (09:21)
[2024-05-21] MEDS: VALPROATE SODIUM INJ 250 MG in NA CHLORIDE 0.9% 100 ML IV SCH (09:27)
[2024-05-21] MEDS: POTASSIUM CL 40 MEQ in NA CHLORIDE 0.9% 500 ML IV SCH (11:14)
--- NOTE | 2024-05-21 14:55 | P.PN ---
Subjective Date of Service: 05/21/24 Chief Complaint: diarrhea Nursing staff report patient was briefly agitated this morning. He had multiple bowel movement. Patient denies any abdominal pain. Physical Examination - Vital Signs Temperature: 97.1 F Blood Pressure: 140/63 Pulse: 69 Respirations: 16 Pulse Ox (%): 98 Assessment And Plan - Plan Physical examination General: Alert and oriented x 2, NAD, Neck: No elevated JVD Heart: Heart sounds 1 and 2 normal, regular rhythm, normal rate, no pedal edema Lungs: Clear to auscultation bilaterally, adequate breath sounds bilaterally, no rhonchi or crackles. Abdomen: Soft, less distended, nontender, normal bowel sounds. Extremities: No tenderness, no deformity Skin: Normal skin turgor, no rash, no nodules or ulcers. Neuro: No focal motor deficit. Normal speech. Psychiatry: Poor insight, dementia, no agitation. Diagnosis Megacolon-unknown diagnosis Gastric distention Anemia Hypothyroid state. History of seizures History of CVA Diabetes mellitus type 2 Hypokalemia Plan: Megacolon Gastric distention Hypokalemia Unknown etiology Likely related to gastric motility given involvement of multiple regions of the GI tract. Toxic megacolon is unlikely given no fever and no leukocytosis and no abdominal pain. General surgery Dr. Flroes is following. KUB reports some improvement in the colonic dilatation Patient removed his NG tube and declined further insertion. Bowel obstruction is unlikely. Monitor and optimize electrolytes, keep potassium level greater than 4. Stool for C. difficile is negative. Hypothyroidism TSH is significantly elevated. Resume Synthroid and titrate to 150 mcg/day once diet is resumed History of seizures Continue home antiseizure medications as IV as patient is n.p.o. History of CVA Antiplatelet on hold given n.p.o. status Diabetes mellitus type 2 Insulin sliding scale for now as patient is n.p.o. DVT prophylaxis: Heparin SQ Advanced directive: full code.
[2024-05-22] MEDS: KCL 20 MEQ/100 mL IVPB 20 MEQ/100 ML BAG IV SCH (01:49)
[2024-05-22 05:45] LABS: Absolute Basophils 0.1 K/uL (0-0.5); Absolute Eosinophils 0.2 K/uL (0-0.5); Absolute Lymphocytes (CBC) 0.7 K/uL (0.7-4.9); Absolute Monocytes 0.7 K/uL (0.1-1.3); Absolute Neutrophil 4.1 K/uL (1.8-8.0); Basophils % 0.9 % (0-1.3); Hematocrit 30.7 % (39.6-49.0); Hemoglobin 10.5 g/dL (13.6-17.9); Lymphocytes % 12.9 % (15.3-44.8); MCH 29.3 pg (27.0-35.0); MCHC 34.4 g/dL (32.0-36.0); MCV 85.2 fL (80-100); MPV 8.2 fL (7.6-11.3); Monocytes % 11.3 % (3.3-12.3); Neutrophils % 70.9 % (41.7-73.7); Platelets 155 thou/uL (152-406); Red Cell Distribution Width 16.4 % (12.1-15.2)
[2024-05-22 05:59] LABS: Anion Gap 8.3 mEq/L (5.0-15.0); Magnesium 1.9 mg/dL (1.6-2.4); Potassium 3.3 mEq/L (3.5-5.1)
--- NOTE | 2024-05-22 06:39 | RAD REPORT ---
EXAM DESCRIPTION: RAD - Abdomen 1 View (KUB) - 05/22/2024 6:27 am CLINICAL HISTORY: Colonic Distention COMPARISON: Abdomen 1 View (KUB) dated 05/21/2024; Abdomen Pelvis W Contrast dated 05/19/2024 FINDINGS: No significant change in diffuse colonic dilatation. Transverse colon measures up to 8.3 c m. No acute osseous abnormality.Visualized lungs are unremarkable.No abnormal calcifications. Vascula r stent in the left groin. Sternotomy. IMPRESSION: No significant change in diffuse colonic dilatation which could reflect an adynamic ileu s.
--- NOTE | 2024-05-22 12:18 | P.PN ---
Subjective Date of Service: 05/22/24 Chief Complaint: diarrhea No issues reported overnight. Patient continues to have bowel movement. Patient denies any abdominal pain. No nausea or vomiting. Physical Examination - Vital Signs Temperature: 97.8 F Blood Pressure: 138/66 Pulse: 71 Respirations: 16 Pulse Ox (%): 100 Assessment And Plan - Plan Physical examination General: Alert and oriented x 2, NAD, Neck: No elevated JVD Heart: Heart sounds 1 and 2 normal, regular rhythm, normal rate, no pedal edema Lungs: Clear to auscultation bilaterally, adequate breath sounds bilaterally, no rhonchi or crackles. Abdomen: Soft, less distended, nontender, normal bowel sounds. Extremities: No tenderness, no deformity Skin: No rash, no ulcers. Neuro: No focal motor deficit. Normal speech. Psychiatry: Poor insight, dementia, no agitation. Diagnosis Megacolon-unknown diagnosis Gastric distention Anemia Hypothyroid state. History of seizures History of CVA Diabetes mellitus type 2 Hypokalemia Plan: Megacolon Gastric distention Hypokalemia Unknown etiology Likely related to dysfunctional motility given involvement of multiple regions of the GI tract. Toxic megacolon is unlikely given no fever and no leukocytosis and no abdominal pain. General surgery Dr. Flores is following. KUB reports some improvement in the colonic dilatation. Repeat KUB 05/22 shows no changes from KUB done on 05/21. Patient removed his NG tube and declined further insertion. Bowel obstruction is unlikely. Monitor and optimize electrolytes, keep potassium level greater than 4. IV hydration-NS with potassium Stool for C. difficile is negative. Hypothyroidism TSH is significantly elevated. Resume Synthroid at 150 mcg/day. Check TSH in 8 weeks. History of seizures Continue home anti-seizure medications. History of CVA Resume antiplatelets. Diabetes mellitus type 2 Blood sugar readings are within normal range Continue insulin sliding scale. DVT prophylaxis: Heparin SQ Advanced directive: full code.
[2024-05-22] MEDS: DIVALPROEX NA 125 MG CAP PO SCH (14:00)
[2024-05-22] MEDS: SERTRALINE HCL 50 MG TAB PO SCH (14:37)
[2024-05-22] MEDS: ARIPiprazole 5 MG TAB PO SCH (14:38)
[2024-05-22] MEDS: NS KCL 20MEQ 20 MEQ/1,000 ML BAG IV SCH (14:38)
[2024-05-22] MEDS: RIVASTIGMINE TARTRATE 1.5 MG PO SCH (20:42)
[2024-05-22] MEDS: SENOSIDES 8.6 MG TAB PO SCH (20:42)
[2024-05-22] MEDS: GABAPENTIN 100 MG CAP PO SCH (20:42)
[2024-05-22] MEDS: levETIRAcetam 500 MG/5 ML OSYR PO SCH (21:00)
[2024-05-23 05:04] VITALS: BMI 32.1
[2024-05-23] MEDS: LEVOTHYROXINE SOD 0.125 MG TAB PO SCH (06:35)
[2024-05-23] MEDS: CLOPIDOGREL 75 MG TABLET PO SCH (08:01)
[2024-05-23] MEDS: SERTRALINE HCL 50 MG TAB PO SCH (08:01)
[2024-05-23] MEDS: ATORVASTATIN 40 MG TAB PO SCH (08:01)
--- NOTE | 2024-05-23 08:31 | RAD REPORT ---
EXAM DESCRIPTION: RAD - Abdomen 1 View (KUB) - 05/23/2024 6:39 am CLINICAL HISTORY: Colonic Distention COMPARISON: Abdomen 1 View (KUB) dated 05/22/2024; Abdomen 1 View (KUB) dated 05/21/2024; Abdomen Pelv is W Contrast dated 05/19/2024 TECHNIQUE: Single AP view of the abdomen. FINDINGS: Persistent sigmoid dilation. No small bowel dilation. No air-fluid levels, free air, or pn eumatosis. No suspicious calcifications. No significant bony abnormality. IMPRESSION: Stable degree sigmoid colon distention.
[2024-05-23] MEDS ORDERED: ARIPiprazole 5 MG TAB PO SCH (09:00)
[2024-05-23] MEDS: ASPIRIN 325 MG TAB PO SCH (09:28)
[2024-05-23] MEDS: BISACODYL 10 MG RECTAL SUPP PR ONE (11:58)
[2024-05-23 12:59] LABS: Anion Gap 11.3 mEq/L (5.0-15.0); Magnesium 2.2 mg/dL (1.6-2.4); Phosphorus 2.5 mg/dL (2.5-4.9); Potassium 3.3 mEq/L (3.5-5.1)
--- NOTE | 2024-05-23 16:15 | CON ---
Date of Consultation: 05/20/2024 Brief History Of Present Illness: The patient is a -tiay-fea male with history of CVA, TIA , who lives at [facility], who was brought in by EMS with complaints of abdominal pain, diarrh ea. EMS brought him at the [facility] of [facility]. He complained of left-sided abdominal pain. However, his history is limited due to dementia. He did have significant symptomati c improvement in the ER after having bowel function. He had bowel movements after his CAT scan was p erformed. He has not been on any antibiotic recently and concern for C difficile was low, but he did continue to have diarrhea. Information is obtained mostly from chart as patient is minimally verbal . Past Medical History: CVA, TIA, gallstones, diabetic retinopathy, depression, thyroidism. Past Surgical History: Includes a CABG, thyroidectomy, 5th toe amputation, bilateral lower extremity endovascular stents. Allergies: NO KNOWN DRUG ALLERGIES. Home Medications: Include atorvastatin, Plavix, Pepcid, Lasix, Lantus, Keppra, levothyroxine, metopr olol, paroxetine, Protonix. Social History: He denies smoking, alcohol, recreational drug use. Review of Systems: A 10-point review of systems is difficult to obtain, but patient denies abdominal pain or any other g astrointestinal complaints during my exam. Physical Examination: Vital Signs: At the time of my examination, his vital signs were blood pressure of 108/41, heart rat e was 61, temperature 97.4, SpO2 of 99% on room air. General: He is awake, alert, and conversive. He appeared oriented, but had difficulty with verbaliz ation as he appears to have dysphagia, but he does appear to answer questions appropriately after pro longed attempts to communicate. HEENT: Otherwise, normocephalic. Sclerae anicteric. Mucous membranes are moist. Oropharynx clear. Neck: Supple without JVD. Chest: Normal expansion and excursion. Cardiovascular: Regular rate and rhythm. Pulmonary: Clear to auscultation bilaterally. Abdomen: Soft, distended, nontender. No rebound, no guarding. No focal peritonitis. It is tympani c globally. No worrisome findings other than his distention. He is completely pain free even on renuka p palpation. Extremities: Had no clubbing, cyanosis, edema. He has well-healed surgical scars. Skin: Otherwise warm and dry. Laboratory Data: Revealed a white blood count of 9.1, hemoglobin 10.7, hematocrit 32.7, platelet cou nt was 166. His neutrophils 77%. Sodium 149, potassium 3.4, chloride 111, carbon dioxide 28, BUN 18 , creatinine 0.75, glucose is 102. Lactic acid is 1.1. His total bilirubin 0.8, AST 11, ALT less th an 14, alkaline phosphatase is 49, lipase was 27. TSH was 26, free T4 of 0.88. Lipase as stated was 27. At the time of admission, his C difficile toxin was negative. He had a CT scan performed of e abdomen and pelvis, which is officially read as severe distention of the colon, could be toxic srikanth colon. Severe distention of stomach also, which is indeterminate. Cholelithiasis is noted as well. Assessment And Plan: This is a 68-year-old male who comes in with severe significant colonic distent ion. 1.IV fluid hydration. 2.Antibiotic coverage. 3.Serial abdominal exams. 4.Electrolyte correction. 5.Will recommend initial phase of observation to see if the patient is able to spontaneously pass hi s material. 6.The patient had an NG-tube placed in the ER, which he pulled out prior to my seeing him, which ret rieved approximately 400 cc of material in addition to gas at which point, he apparently became asymp tomatic at that time. 7.The patient does not appear to meet criteria for toxic megacolon based on his findings at this prabha e. However, we will continue to perform serial exams. 8.I have explained the risks, benefits, and alternatives of operative versus nonoperative management of his colonic distention including, but not limited to exploratory laparotomy with possible subtota l colectomy, permanent ileostomy versus nonoperative management. At this point, using medical treatm ents, we will proceed with medical management first and if the patient is unable to progress, will to revisit the surgical options as the patient is not wanting any surgical intervention at this time, allyson solorio I concur with this feeling at this point. LILIA/INGRID Voice ID: [id number] Report ID: [id number]
--- NOTE | 2024-05-23 16:28 | P.PN ---
Subjective Date of Service: 05/23/24 Chief Complaint: diarrhea Patient is intermittently agitated. He denies any abdominal pain and he is tolerating liquid diet Physical Examination - Vital Signs Temperature: 98.2 F Blood Pressure: 129/84 Pulse: 89 Respirations: 16 Pulse Ox (%): 100 Assessment And Plan - Plan Physical examination General: Alert and oriented x 2, NAD, Heart: Heart sounds 1 and 2 normal, regular rhythm, normal rate, no pedal edema Lungs: Clear to auscultation bilaterally, adequate breath sounds bilaterally, no rhonchi or crackles. Abdomen: Soft, distention improved, nontender, normal bowel sounds. Extremities: No tenderness, no deformity Skin: No rash, no ulcers. Neuro: No focal motor deficit. Normal speech. Psychiatry: dementia, agitation. Diagnosis Megacolon-unknown diagnosis Gastric distention Anemia Hypothyroid state. History of seizures History of CVA Diabetes mellitus type 2 Hypokalemia Plan: Megacolon Gastric distention Hypokalemia Unknown etiology Likely related to dysfunctional motility given involvement of multiple regions of the GI tract. Toxic megacolon is unlikely given no fever and no leukocytosis and no abdominal pain. General surgery Dr. Flores is following. KUB shows progressive improvement in the colonic dilatation. Most recent KUB shows stable sigmoid dilatation Patient removed his NG tube and declined further insertion. Bowel obstruction is unlikely. Monitor and optimize electrolytes, keep potassium level greater than 4. IV hydration-NS with potassium. Patient is on rivastigmine for dementia which may probably help with gastric motility. Stool for C. difficile is negative. Continue to monitor with serial KUB. Hypothyroidism TSH is significantly elevated. Resume Synthroid at 150 mcg/day. Check TSH in 8 weeks. History of seizures Continue home anti-seizure medications. History of CVA Resume antiplatelets. Diabetes mellitus type 2 Blood sugar readings are within normal range Continue insulin sliding scale. Dementia Continue home medications. DVT prophylaxis: Heparin SQ Advanced directive: full code.
--- NOTE | 2024-05-24 08:28 | RAD REPORT ---
EXAM DESCRIPTION: RAD - Abdomen 1 View (KUB) - 05/24/2024 6:28 am CLINICAL HISTORY: Colonic Distention Pain COMPARISON: Abdomen 1 View (KUB) dated 05/23/2024; Abdomen 1 View (KUB) dated 05/22/2024; Abdomen 1 View (KUB) dated 05/21/2024; Abdomen Pelvis W Contrast dated 05/19/2024 FINDINGS: Gaseous distention of the colon particularly in the left abdomen is again seen. Moderate s tool retention is also present. No real change has occurred since yesterday's examination in the degr ee colon distention. No significant bony findings. IMPRESSION: Stable colonic gaseous distention noted since yesterday's study.
[2024-05-24 09:35] VITALS: O2SAT 96
[2024-05-24 10:56] LABS: Anion Gap 9.4 mEq/L (5.0-15.0); Potassium 3.4 mEq/L (3.5-5.1)
[2024-05-24] MEDS: MINERAL OIL 30 ML UCUP PO ONE (11:38)
[2024-05-24] MEDS: POTASSIUM CL SA 10 MEQ TAB PO ONE (11:38)
[2024-05-24] MEDS: BISACODYL 10 MG RECTAL SUPP PR ONE (18:01)
[2024-05-25 06:29] LABS: Anion Gap 8.7 mEq/L (5.0-15.0); Potassium 3.7 mEq/L (3.5-5.1)
--- NOTE | 2024-05-25 07:45 | RAD REPORT ---
EXAM DESCRIPTION: RAD - Abdomen 1 View (KUB) - 05/25/2024 6:18 am CLINICAL HISTORY: Colonic Distention Pain COMPARISON: Abdomen 1 View (KUB) dated 05/24/2024; Abdomen 1 View (KUB) dated 05/23/2024; Abdomen 1 View (KUB) dated 05/22/2024; Abdomen 1 View (KUB) dated 05/21/2024; Abdomen Pelvis W Contrast dated FINDINGS: There a prominent loop of colon in the central abdomen which appears to be the sigmoid col on. Prominent gaseous distention in the left upper quadrant probably also colon. Overall the degree o f distention of the colon has mildly improved since comparative imaging. No pathologic calcifications .
[2024-05-25 08:44] VITALS: BP 139/61; TEMP 97.4
[2024-05-25] MEDS: POTASSIUM CL SA 10 MEQ TAB PO ONE (08:58)
--- NOTE | 2024-05-25 10:11 | P.DS ---
Admission Date: 05/19/24 Discharge Date: 05/25/24 Disposition: TRANSFER TO [facility] Discharge Condition: FAIR Reason for Admission: diarrhea Brief History of Present Illness: 68-year-old male presents from shelter via EMS with complaints of abdominal pain and diarrhea. He resides at [facility]. Patient has a history of dementia and history was limited. In the ER, labs were unremarkable. A CT scan of the abdomen pelvis was done which showed colon distention differentials including toxic megacolon. Surgery was consulted. An NG tube was placed. Patient was hospitalized for further management. Hospital Course: Patient was admitted to the medical floor and the following medical problems addressed: Diagnosis Megacolon-unknown diagnosis Gastric distention Anemia Hypothyroid state. History of seizures History of CVA Diabetes mellitus type 2 Hypokalemia Plan: Megacolon Gastric distention Hypokalemia Unknown etiology Likely related to dysfunctional motility given involvement of multiple regions of the GI tract. Toxic megacolon is unlikely given no fever and no leukocytosis and no abdominal pain. General surgery Dr. Flores is following. KUB shows progressive improvement in the colonic dilatation. Most recent KUB shows stable sigmoid dilatation Patient removed his NG tube and declined further insertion. Bowel obstruction is unlikely. Patient was treated with IV hydration and potassium supplementation. Patient is on rivastigmine for dementia which may probably help with gastric motility. Stool for C. difficile is negative. He was on IV Zosyn as empiric coverage Patient discharged with oral ciprofloxacin and Flagyl Constipation prophylaxis also recommended. Patient has been clinically stable, he has been having regular bowel movement, no abdominal pain, he is tolerating diet and ambulatory. Hypothyroidism TSH is significantly elevated. Synthroid dose increased to 150 mcg/day Recommend TSH check in 8 weeks. History of seizures Continued home anti-seizure medications. History of CVA Resume antiplatelets. Diabetes mellitus type 2 Blood sugar readings where within normal range Blood sugar was managed with insulin sliding scale during the hospital stay. Dementia Continued home medications. Vital Signs/Physical Exam: Temp Pulse Resp BP Pulse Ox 97.4 F 103 H 18 139/61 100 05/25/24 08:00 05/25/24 08:00 05/25/24 08:00 05/25/24 08:00 05/25/24 08:00 General: Alert, In no apparent distress, Oriented x2 HEENT: Mucous membr. moist/pink, Sclerae nonicteric Neck: Supple, JVD not distended Respiratory: Clear to auscultation bilaterally, Normal air movement Cardiovascular: No edema, Regular rate/rhythm, Normal S1 S2 Gastrointestinal: Normal bowel sounds, Soft and benign, Non-distended, No tenderness Musculoskeletal: No swelling Integumentary: No rashes Neurological: Normal strength at 5/5 x4 extr Laboratory Data at Discharge: WBC 5.80 thou/uL (4.3-10.9) 05/22/24 05:10 Hgb 10.5 g/dL (13.6-17.9) L 05/22/24 05:10 Hct 30.7 % (39.6-49.0) L 05/22/24 05:10 Plt Count 155 thou/uL (152-406) 05/22/24 05:10 Sodium 140 mEq/L (136-145) 05/25/24 06:00 Potassium 3.7 mEq/L (3.5-5.1) 05/25/24 06:00 BUN 9 mg/dL (7-18) 05/25/24 06:00 Creatinine 0.78 mg/dL (0.70-1.30) 05/25/24 06:00 Glucose 183 mg/dL (74-106) H 05/25/24 06:00 Phosphorus 2.5 mg/dL (2.5-4.9) 05/23/24 12:32 Magnesium 2.2 mg/dL (1.6-2.4) 05/23/24 12:32 Total Bilirubin 0.8 mg/dL (0.2-1.0) 05/20/24 09:44 AST 11 U/L (15-37) L 05/20/24 09:44 ALT < 14 U/L (16-61) L 05/20/24 09:44 Alkaline Phosphatase 49 U/L (45-117) D 05/20/24 09:44 Lipase 13 U/L (13-75) 05/22/24 05:10 Home Medications: Atorvastatin Calcium 40 mg PO DAILY 05/31/21 Clopidogrel Bisulfate [Plavix] 75 mg PO DAILY 05/31/21 Furosemide [Lasix] 20 mg PO DAILY 05/31/21 Insulin Glargine,Hum.rec.anlog [Lantus] 26 unit SQ BID 05/31/21 Metoprolol Tartrate 50 mg PO BID 05/31/21 Acetaminophen [Tylenol] 650 mg PO Q4HP PRN 05/20/24 Amlodipine [Norvasc*] 5 mg PO DAILY 05/20/24 Aripiprazole [Abilify] 5 mg PO DAILY 05/20/24 Aspirin 325 mg PO DAILY 05/20/24 Divalproex [Depakote Sprinkle*] 125 mg PO TID 05/20/24 Gabapentin [Neurontin*] 100 mg PO DAILY 05/20/24 Omeprazole 20 mg PO DAILY 05/20/24 Potassium Chloride 20 meq PO DAILY 05/20/24 Rivastigmine Tartrate [Rivastigmine] 1.5 mg PO BID 05/20/24 Sertraline HCl 50 mg PO DAILY 05/20/24 Sitagliptin Phosphate [Januvia] 100 mg PO DAILY 05/20/24 levETIRAcetam [Keppra] 7.5 ml PO BID 05/20/24 Ciprofloxacin HCl [Cipro] 500 mg PO BID #14 tab 05/25/24 Levothyroxine Sodium 150 mcg PO DAILY #30 tab 05/25/24 Petrolatum 41% Oint [Aquaphor] 1 raysa TOP BID PRN jar 05/25/24 Senosides [Senokot*] 17.2 mg PO BID #0 tab 05/25/24 metroNIDAZOLE [Flagyl] 500 mg PO Q8H #21 tab 05/25/24 New Medications: Ciprofloxacin HCl [Cipro] 500 mg PO BID #14 tab metroNIDAZOLE [Flagyl] 500 mg PO Q8H #21 tab Levothyroxine Sodium 150 mcg PO DAILY #30 tab Physician Discharge Instructions: LT resident at: [address] [address] P:[phone]/ F:[phone] Diet: AHA Activity: Fall precautions Followup: NONE,NONE [Primary Care Provider] - 1 Week Franco Lira MD [ASSOCIATE-ACTIVE - CAN ADMIT] - 1-2 Weeks Time spent managing pt's care (in minutes): 35
== END 2024-05-25 12:03 | DRG 394 ==
LOC: ER 17:44 → 4TH 21:17
PROVIDERS: ADMIT Internal Medicine; ATTEND Internal Medicine
PROC: 0DH67UZ Insertion of Feeding Device into Stomach, Via Natural or Artificial Opening (ICD-10-PCS; principal; 2024-05-19)
DX: K63.89 Other specified diseases of intestine (principal); F03.911 Unspecified dementia, unspecified severity, with agitation; K59.39 Other megacolon; E87.6 Hypokalemia; D64.9 Anemia, unspecified; E03.9 Hypothyroidism, unspecified; I10 Essential (primary) hypertension; F25.9 Schizoaffective disorder, unspecified; E78.00 Pure hypercholesterolemia, unspecified; E11.51 Type 2 diabetes mellitus with diabetic peripheral angiopathy without gangrene; I25.10 Atherosclerotic heart disease of native coronary artery without angina pectoris; Z66 Do not resuscitate; Z79.4 Long term (current) use of insulin; Z79.02 Long term (current) use of antithrombotics/antiplatelets; Z86.73 Personal history of transient ischemic attack (TIA), and cerebral infarction without residual deficits; Z79.890 Hormone replacement therapy; Z79.899 Other long term (current) drug therapy; Z89.421 Acquired absence of other right toe(s)
CPT/HCPCS: 36415; 74018; 74177; 80048; 80053; 80164; 82947; 83605; 83690; 83735; 84100; 84132; 84439; 84443; 85025; 87324; 96361; 96365; 99285; J0744; J1644; J1953; J2543; J3480; J7030; J7040; Q9967

== ENCOUNTER 2024-05-31 18:43 | Emergency (ER) | payer OTHER ==
[2024-05-31 19:49] LABS: Absolute Basophils 0.1 K/uL (0-0.5); Absolute Eosinophils 0.5 K/uL (0-0.5); Absolute Lymphocytes (CBC) 1.1 K/uL (0.7-4.9); Absolute Monocytes 0.9 K/uL (0.1-1.3); Absolute Neutrophil 5.8 K/uL (1.8-8.0); Basophils % 0.7 % (0-1.3); Eosinophils % 6.2 % (0-4.4); Hematocrit 34.9 % (39.6-49.0); Hemoglobin 11.8 g/dL (13.6-17.9); Lymphocytes % 12.8 % (15.3-44.8); MCH 29.3 pg (27.0-35.0); MCHC 33.8 g/dL (32.0-36.0); MCV 86.7 fL (80-100); MPV 7.8 fL (7.6-11.3); Neutrophils % 69.3 % (41.7-73.7); Nucleated Red Blood Cells % 0.1 % (0-0); Platelets 207 thou/uL (152-406); RBC Red Blood Cell Count 4.03 M/uL (4.33-5.43); Red Cell Distribution Width 17.5 % (12.1-15.2)
[2024-05-31 20:08] LABS: Albumin 2.9 g/dL (3.4-5.0); Anion Gap 7.9 mEq/L (5.0-15.0); Bilirubin Total 0.9 mg/dL (0.2-1.0); Potassium 4.9 mEq/L (3.5-5.1); Protein, Total 5.9 g/dL (6.4-8.2)
--- NOTE | 2024-05-31 20:45 | RAD REPORT ---
EXAMINATION: CT ABDOMEN AND PELVIS WITH CONTRAST CLINICAL INDICATION: Male, 69 years old. [facility] MAIN ABD PAIN TECHNIQUE: CT abdomen and pelvis was performed, after the administration of IV contrast, as per [facility] protocol. Axial, sagittal and coronal reconstructions were obtained. One or more of the following dose reduction techniques were used: Automated exposure control, adjustment of the mA and/o r kV according to patient size, and/or iterative reconstruction. Unless otherwise specified, incidental findings do not require dedicated imaging follow-up. [id number]. COMPARISON: 05/19/2024 FINDINGS: LOWER CHEST: Coronary calcifications. Sternotomy. Mild circumferential thickening distal esophagus. LIVER: Hepatic steatosis. No focal mass. GALLBLADDER/BILE DUCT: Cholelithiasis. No CT evidence of acute cholecystitis.? PANCREAS: Pancreatic atrophy. SPLEEN: Normal size. No focal lesion. ADRENALS: Normal; no mass. KIDNEYS AND URETERS: Normal size and contour. No hydronephrosis. URINARY BLADDER: Normal contour. GASTROINTESTINAL TRACT: Stomach is non-dilated. Small bowel has normal course and caliber. No colonic wall thickening or pericolonic inflammatory changes. Moderate colonic stool. Distention of the transverse colon has improved. PERITONEUM: No ascites. LYMPH NODES: No lymphadenopathy. ABDOMINAL AORTA AND OTHER VESSELS: Normal caliber aorta and IVC. Atherosclerosis REPRODUCTIVE ORGANS: prostatomegaly. MUSCULOSKELETAL: No acute or suspicious osseous abnormality. ADDITIONAL FINDINGS: None. IMPRESSION: Moderate colonic stool The pronounced transverse colonic distension on the prior exam has improved. N o bowel obstruction.
--- NOTE | 2024-05-31 20:51 | ER ---
Nurse's Notes [facility] Name: Donaldo English Age: 69 yrs Sex: Male : 1955 Arrival Date: 05/31/2024 Time: 18:43 Bed 13 Private MD: Diagnosis: Ecchymoses to RLQ Presentation: 05/31 18:48 Chief complaint: EMS states: [facility] called stating that patient had ko1 some bruising to LLQ and they wanted it checked out. Coronavirus screen: At this time, the client does not indicate any symptoms associated with coronavirus-19. Ebola Screen: No symptoms or risks identified at this time. Initial Sepsis Screen: Does the patient meet any 2 criteria? No. Patient's initial sepsis screen is negative. Does the patient have a suspected source of infection? No. Patient's initial sepsis screen is negative. Risk Assessment: Do you want to hurt yourself or someone else? Patient reports no desire to harm self or others. Onset of symptoms is unknown. Transition of care: patient was received from another setting of care (long-term care facility), [place]. 18:48 Method Of Arrival: EMS: [facility] ko1 18:48 Acuity: LILIANA 4 ko1 20:22 Acuity: LILIANA 3 tl4 Triage Assessment: 18:50 General: Appears in no apparent distress. Behavior is agitated. Pain: Denies pain. ko1 Historical: - Allergies: 18:50 No Known Allergies; ko1 - Home Meds: 18:50 Unable to obtain [Active]; ko1 - PMHx: 18:50 Cerebrovascular accident; coronary atherosclerosis; Dementia; diabetes mellitus; ko1 Hemiplegia and hemiparesis; Hypercholesterolemia; Hypertensive disorder; Hypothyroidism; Right sided weakness; schizoaffective disorder; Seizure; Speech disturbances; 18:55 Depressive disorder; ko1 - PSHx: 18:50 Unable to Obtain; ko1 - Immunization history:: Adult Immunizations unknown. - Infectious Disease History:: Denies. - Social history:: Smoking status: Patient denies any tobacco usage or history of. Screenin:52 [facility] ED Fall Risk Assessment (Adult) History of falling in the last 3 months, ko1 including since admission Yes- single mechanical fall (1 pt) Confusion or Disorientation Yes (5 pts) Intoxicated or Sedated No (0 pts) Impaired Gait Yes (1 pt) Mobility Assist Device Used Yes (1 pt) Altered Elimination Yes (1 pt) Score/Fall Risk Level 3 or more points = High Risk Oriented to surroundings, Maintained a safe environment, Educated pt \T\ family on fall prevention, incl call for assistance when getting out of bed, Assessed \T\ reinforced patient's understanding of fall precautions, Provided non-skid footwear, Hourly rounding (assess needs \T\ fall precautionary measures) done, Used ambulatory aids as needed (educated on \T\ assisted with), Used gait belt as appropriate Implemented a Fall Risk Plan of Care, Apply high fall risk patient identification: yellow non skid footwear/ fall signage, Activated bed/chair alarm, Remained w/in arm's length of patient and in sight while toileting, Offered frequent toileting (1:1 observation), Remained with patient while ambulating, Utilized family, sitter, or virtual client customer manager as indicated. Abuse screen: Denies threats or abuse. Denies injuries from another. Nutritional screening: No deficits noted. Tuberculosis screening: No symptoms or risk factors identified. Assessment: 19:05 General: Appears in no apparent distress. comfortable, Behavior is calm, cooperative, rg5 appropriate for age. Pain: Denies pain. Neuro: Level of Consciousness is awake, alert, obeys commands, Oriented to person, place, Appropriate for age. Cardiovascular: Denies chest pain, shortness of breath, Capillary refill < 3 seconds Patient's skin is warm and dry. Respiratory: Airway is patent Trachea midline Respiratory effort is even, unlabored, Respiratory pattern is regular, symmetrical. GI: Abdomen is round non-distended, Abd is soft and non tender. : No signs and/or symptoms were reported regarding the genitourinary system. EENT: No deficits noted. Derm: Skin is intact, Skin is dry, Skin is normal, Skin temperature is warm. Musculoskeletal: Range of motion: intact in all extremities. 20:00 Reassessment: No changes from previously documented assessment. Patient and/or family rg5 updated on plan of care and expected duration. Pain level reassessed. Patient is alert, oriented x 3, equal unlabored respirations, skin warm/dry/pink. Vital Signs: 18:48 BP 149 / 59; Pulse 66; Resp 16; Temp 97; Pulse Ox 100% on R/A; ko1 19:30 BP 148 / 57; Pulse 68; Resp 17; Pulse Ox 100% on R/A; rg5 20:30 BP 138 / 77; Pulse 65; Resp 17; Temp 98; Pulse Ox 99% on R/A; Pain 0/10; rg5 20:30 Pain Scale: Adult [facility] ED Course: 18:46 Patient arrived in ED. ko1 18:48 Manuela Pineda RN is Primary Nurse. ko1 18:49 Shakila English FNP-C is PHCP. kb 18:49 Anton Ly MD is Attending Physician. kb 18:50 Triage completed. ko1 18:50 Arm band placed on left wrist. Patient placed in an exam room, on a stretcher, on pulse ko1 oximetry, Patient notified of wait time. 18:52 Nurse Practitioner and/or Physician Switcher to see patient. Pt visited by daughter. ko1 18:52 Patient has correct armband on for positive identification. Fall risk band placed. Bed ko1 in low position. Call light in reach. Side rails up X2. Provided Education on: call light. Pulse ox on. NIBP on. Door closed. Noise minimized. Lights dimmed. Warm blanket given. Pillow given. 19:39 Inserted saline lock: 22 gauge in right forearm, using aseptic technique. Blood oe collected. Flushed with 10 mL NS. 19:41 CBC with Diff Sent. oe 19:41 CMP Sent. oe 19:41 Lipase Sent. oe 20:27 CT Abd/Pelvis - IV Contrast Only In Process Unspecified. EDMS 20:51 No provider procedures requiring assistance completed. rg5 20:51 IV discontinued, bleeding controlled, Pressure dressing applied. rg5 20:58 Awaiting transportation. rg5 21:00 called [facility] talked to the nurse and they will arrange for sp transport back to the [facility]. Stated she will call [facility]. Administered Medications: No medications were administered Medication: 18:52 VIS not applicable for this client. ko1 Outcome: 20:50 Discharge ordered by . kb 21:49 Discharged to home via wheelchair, rg5 21:49 Condition: stable 21:49 Discharge instructions given to patient, family, Instructed on discharge instructions, follow up and referral plans. Demonstrated understanding of instructions, follow-up care, 21:50 Patient left the ED. rg5 Signatures: Dispatcher [employer] EDMS Shakila English, INSTALLATION SERVICE REPRESENTATIVE-C INSTALLATION SERVICE REPRESENTATIVE-Ckb Zabrina Zamora Orlando oe Oliver, Kathy, RN RN ko1 Abhishek Elliott RN RN tl4 Jean Graff RN RN rg5 Corrections: (The following items were deleted from the chart) 18:51 18:50 PMHx: Hemiplegia and hemiparesis; ko1 ko1 18:51 18:50 PMHx: Hemiplegia and hemiparesis; ko1 ko1
--- NOTE | 2024-05-31 20:51 | EDPHYS ---
Physician Documentation [facility] Name: Donaldo English Age: 69 yrs Sex: Male : 1955 Arrival Date: 05/31/2024 Time: 18:43 Bed 13 Private MD: ED Physician Anton Ly HPI: 05/31 20:40 This 69 yrs old Male presents to ER via EMS with complaints of Abdominal Injury. kb 20:41 Pt is a 69 year old male who was sent in for bruising to lower abd that [facility] kb staff noticed today. Daughter states pt was discharged from the hospital one week ago after being diagnosed with "srikanth colon." States she spoke to Dr Flores and was told to bring pt back to the ER to have the bruising evaluated. . Historical: - Allergies: 18:50 No Known Allergies; ko1 - Home Meds: 18:50 Unable to obtain [Active]; ko1 - PMHx: 18:50 Cerebrovascular accident; coronary atherosclerosis; Dementia; diabetes mellitus; ko1 Hemiplegia and hemiparesis; Hypercholesterolemia; Hypertensive disorder; Hypothyroidism; Right sided weakness; schizoaffective disorder; Seizure; Speech disturbances; 18:55 Depressive disorder; ko1 - PSHx: 18:50 Unable to Obtain; ko1 - Immunization history:: Adult Immunizations unknown. - Infectious Disease History:: Denies. - Social history:: Smoking status: Patient denies any tobacco usage or history of. ROS: 20:40 Constitutional: As per HPI kb Exam: 20:40 Constitutional: This is a well developed, well nourished patient who is awake, alert, kb and in no acute distress. Head/Face: Normocephalic, atraumatic. ENT: Moist Mucous membranes Cardiovascular: Regular rate Respiratory: Respirations even and unlabored. No increased work of breathing. Talking in full sentences Abdomen/GI: Soft, non-tender. No distention MS/ Extremity: Pulses equal, no cyanosis. Neurovascular intact. Full, normal range of motion. Neuro: Awake and alert, GCS 15, oriented to person, place, time, and situation. Moves all extremities. Normal gait. 20:40 Skin: bruising to RLQ that is yellow, green and purple in coloration. Vital Signs: 18:48 BP 149 / 59; Pulse 66; Resp 16; Temp 97; Pulse Ox 100% on R/A; ko1 19:30 BP 148 / 57; Pulse 68; Resp 17; Pulse Ox 100% on R/A; rg5 20:30 BP 138 / 77; Pulse 65; Resp 17; Temp 98; Pulse Ox 99% on R/A; Pain 0/10; rg5 20:30 Pain Scale: Adult rg5 MDM: 18:49 Patient medically screened. kb 20:41 Data reviewed: vital signs, nurses notes. Historians other than the Patient: antoni Daughter/Son: daughter. 20:42 Management of patient was discussed with the following: Skiver Counter: Dr Mark corrales recommends labs and CT to evaluate for any bleeding. . 20:45 ED course: Pt ambulatory to restroom. Denies any abd pain. Awaiting Ct results. kb 20:51 Differential Diagnosis contusion, bruising at injection site, intraabdominal bleeding. kb Counseling: I had a detailed discussion with the patient and/or guardian regarding the historical points, exam findings, and any diagnostic results supporting the discharge/admit diagnosis, lab results, radiology results, the need for outpatient follow up, a family practitioner, to return to the emergency department if symptoms worsen or persist or if there are any questions or concerns that arise at home. 05/31 19:05 Order name: CBC with Diff; Complete Time: 20:14 kb 05/31 19:05 Order name: CMP; Complete Time: 20:14 kb 05/31 19:05 Order name: Lipase; Complete Time: 20:14 kb 05/31 19:05 Order name: CT Abd/Pelvis - IV Contrast Only; Complete Time: 20:46 kb 05/31 19:05 Order name: IV Saline Lock; Complete Time: 19:41 kb 05/31 19:05 Order name: Labs collected and sent; Complete Time: 19:41 kb Administered Medications: No medications were administered Disposition: 06/01 07:45 Co-signature as Attending Physician, Anton Ly MD I reviewed the patient's care rn provided by the Advanced Practice Provider and agree with the diagnosis and treatment plan. Disposition Summary: 05/31/24 20:50 Discharge Ordered Notes: Location: Home kb Condition: Stable kb Diagnosis - Ecchymoses to RLQ kb Followup: kb - With: Emergency Department - When: As needed - Reason: Worsening of condition Followup: kb - With: Private Physician - When: 2 - 3 days - Reason: Recheck today's complaints, Continuance of care, Re-evaluation by your physician Forms: - Medication Reconciliation Form kb - Antibiotic Education kb - Prescription Opioid Use kb - Patient Portal Instructions kb - Leadership Thank You Letter kb Signatures: Dispatcher [employer] EDShakila Dowd FNP-C FNP-Anton Torres MD MD rn Oliver, Kathy, RN RN ko1 Corrections: (The following items were deleted from the chart) 05/31 18:51 18:50 PMHx: Hemiplegia and hemiparesis; ko1 ko1 18:51 18:50 PMHx: Hemiplegia and hemiparesis; ko1 ko1 19:05 19:05 Abdomen Pelvis W Con+CT.RAD.BRZ ordered. EDGA EDGA
[2024-05-31 22:10] VITALS: BP 138/77; TEMP 98; O2SAT 99
== END 2024-05-31 21:50 | disposition home or self-care (01) ==
LOC: ER 18:43
DX: S30.1XXA Contusion of abdominal wall, initial encounter (principal)
CPT/HCPCS: 85025; 36415; 83690; 80053; 74177; 99284; Q9967

== ENCOUNTER 2024-06-09 19:07 | Inpatient (IN) | payer OTHER ==
[2024-06-09 19:55] LABS: Albumin 2.9 g/dL (3.4-5.0); Albumin/Globulin Ratio 0.9 (1.1-1.8); Alkaline Phosphatase 58 U/L (45-117); Anion Gap 7.3 mEq/L (5.0-15.0); BUN Blood Urea Nitrogen 19 mg/dL (7-18); Bicarbonate 28 mEq/L (21-32); Globulin 3.4 g/dL (2.3-3.5); Glomerular Filtration Rate 84 ml/min (=/>90); Glucose Level 327 mg/dL (74-106); Lipase 27 U/L (13-75); Potassium 4.3 mEq/L (3.5-5.1); Protein, Total 6.3 g/dL (6.4-8.2); Sodium Level 135 mEq/L (136-145)
[2024-06-09 19:56] LABS: Absolute Basophils 0.1 K/uL (0-0.5); Absolute Eosinophils 0.3 K/uL (0-0.5); Absolute Lymphocytes (CBC) 0.6 K/uL (0.7-4.9); Absolute Monocytes 0.7 K/uL (0.1-1.3); Absolute Neutrophil 6.1 K/uL (1.8-8.0); Basophils % 1.1 % (0-1.3); Eosinophils % 3.3 % (0-4.4); Hematocrit 34.1 % (39.6-49.0); Hemoglobin 11.6 g/dL (13.6-17.9); Lymphocytes % 8.1 % (15.3-44.8); MCH 29.1 pg (27.0-35.0); MCHC 33.9 g/dL (32.0-36.0); MCV 85.8 fL (80-100); MPV 8.5 fL (7.6-11.3); Neutrophils % 78.5 % (41.7-73.7); Nucleated Red Blood Cells % 0.1 % (0-0); Platelets 173 thou/uL (152-406); RBC Red Blood Cell Count 3.98 M/uL (4.33-5.43); Red Cell Distribution Width 16.5 % (12.1-15.2)
[2024-06-09 19:57] LABS: ALT/SGPT < 14 U/L (16-61); AST/SGOT < 10 U/L (15-37)
--- NOTE | 2024-06-09 21:25 | RAD REPORT ---
EXAMINATION: CT ABDOMEN AND PELVIS WITH CONTRAST CLINICAL INDICATION: Male, 69 years old. [facility] MAIN ABD PAIN IV ONLY Bed Name: 13 TECHNIQUE: CT abdomen and pelvis was performed, after the administration of IV contrast, as per [facility] protocol. Axial, sagittal and coronal reconstructions were obtained. One or more of the following dose reduction techniques were used: Automated exposure control, adjustment of the mA and k V according to patient size, and iterative reconstruction. Unless otherwise specified, incidental findings do not require dedicated imaging follow-up. COMPARISON: 05/31/2024 FINDINGS: LOWER CHEST: The visualized lung bases are clear. LIVER: Normal in size and contour. No focal lesion. BILIARY SYSTEM: Layering sludge without evidence of radiopaque stones.. SPLEEN: Normal size. No focal lesion. PANCREAS: No mass, ductal dilation, or jocelyne-pancreatic fluid. ADRENALS: Normal; no mass. KIDNEYS: Normal size and contour. No hydronephrosis. URINARY BLADDER: Unremarkable. GASTROINTESTINAL TRACT: Marked distention of the sigmoid colon with air-fluid level. Moderate wall th ickening along the rectum. No evidence of free air, significant intra-abdominal free fluid, small bowel obstruction or abscess. APPENDIX: Normal appendix. LYMPH NODES: No lymphadenopathy. MUSCULOSKELETAL: No acute or suspicious osseous abnormality. ADDITIONAL FINDINGS: Mild prostatomegaly. Small left inguinal hernia containing fat. IMPRESSION: Marked distention of the sigmoid with air fluid levels, suggesting a degree of colonic ileus. Wall thickening about the distal sigmoid and rectum, suggesting nonspecific proctocolitis, could be o f infectious or inflammatory nature. Other incidental findings as above.
--- NOTE | 2024-06-09 21:46 | EDPHYS ---
Physician Documentation [facility] Name: Donaldo English Age: 69 yrs Sex: Male : 1955 Arrival Date: 06/09/2024 Time: 19:07 Bed 13 Private MD: ED Physician Anton Ly HPI: 06/09 21:53 This 69 yrs old Male presents to ER via EMS with complaints of Abd Pain > 50 y/o. kb 21:53 Pt is a 69 year old male who presents for abd pain. EMS states pt was crying in pain so kb they wanted him sent in for evaluation. Family states pain has complained of pain intermittently for the last few days to [facility] staff and it got worse today. denies fever, n/v/d. Historical: - Allergies: 19:23 No Known Allergies; rg5 - PMHx: 19:23 Cerebrovascular accident; coronary atherosclerosis; Dementia; depressive disorder; rg5 diabetes mellitus; Hemiplegia and hemiparesis; Hypertensive disorder; Hypothyroidism; Right sided weakness; schizoaffective disorder; Seizure; Speech disturbances; - Immunization history:: Adult Immunizations up to date. - Infectious Disease History:: Denies. - Social history:: Smoking status: Patient denies any tobacco usage or history of. ROS: 21:53 Constitutional: As per HPI kb Exam: 21:53 Constitutional: This is a well developed, well nourished patient who is awake, alert, kb and in no acute distress. Head/Face: Normocephalic, atraumatic. ENT: Moist Mucous membranes Cardiovascular: Regular rate Respiratory: Respirations even and unlabored. No increased work of breathing. Talking in full sentences Skin: Warm, dry with normal turgor. Normal color. MS/ Extremity: Pulses equal, no cyanosis. Neurovascular intact. Full, normal range of motion. Neuro: Awake and alert, GCS 15, oriented to person, place, time, and situation. Moves all extremities. Normal gait. 21:53 Abdomen/GI: Inspection: abdomen appears normal, Bowel sounds: normal, Palpation: soft, in all quadrants, mild abdominal tenderness, in the right upper quadrant and right lower quadrant, Vital Signs: 19:18 BP 135 / 61; Pulse 78; Resp 17; Temp 98.1(O); Pulse Ox 100% on R/A; Weight 91.17 kg; rg5 Height 5 ft. 8 in. ; Pain 5/10; 19:23 BP 135 / 61; Pulse 78; Resp 17; Temp 98.1; Pulse Ox 100% on R/A; Pain 5/10; rg5 20:15 BP 141 / 61; Pulse 78; Resp 17; Pulse Ox 100% ; rg5 21:25 BP 130 / 72; Pulse 76; Resp 17; Pulse Ox 100% on R/A; rg5 22:19 BP 124 / 59; Pulse 75; Resp 17; Pulse Ox 100% on R/A; Pain 4/10; rg5 23:02 BP 129 / 65; Pulse 73; Resp 16; Temp 98; Pulse Ox 100% ; Pain 4/10; rg5 19:18 Body Mass Index 30.56 (91.17 kg, 172.72 cm) rg5 19:18 Pain Scale: Adult rg5 19:23 Pain Scale: Adult rg5 22:19 Pain Scale: Adult rg5 23:02 Pain Scale: Adult rg5 MDM: 19:24 Patient medically screened. kb 21:50 Differential diagnosis: bowel obstruction, diverticulitis, non-specific abd pain, kb pancreatitis. Data reviewed: vital signs, nurses notes. Consideration of Admission/Observation Patient was admitted/placed on observation. Escalation of care including admission/observation considered. Management of patient was discussed with the following: Hospitalist: Dr Jimenes accepts pt for admission. Extracting Machine Operator: Dr Flores accepts pt for consult. 21:52 Historians other than the Patient: EMS: [facility]. Historians other than the Patient: kb Daughter/Son: daughter. Counseling: I had a detailed discussion with the patient and/or guardian regarding the historical points, exam findings, and any diagnostic results supporting the discharge/admit diagnosis, lab results, radiology results, the need for further work-up and treatment in the hospital. 06/09 19:24 Order name: CBC with Diff; Complete Time: 19:59 kb 06/09 19:24 Order name: CMP; Complete Time: 19:59 kb 06/09 19:24 Order name: Lipase; Complete Time: 19:59 kb 06/09 19:24 Order name: CT Abd/Pelvis - IV Contrast Only; Complete Time: 21:32 kb 06/09 23:07 Order name: CONS Physician Consult EDAK 06/09 19:24 Order name: IV Saline Lock; Complete Time: 19:30 kb 06/09 19:24 Order name: Labs collected and sent; Complete Time: 19:30 kb Administered Medications: 22:26 Drug: NS 0.9% IV 500 ml IV at bolus once Route: IV; Rate: bolus; Site: left antecubital;rg5 23:04 Follow up: Response: No adverse reaction; IV Status: Completed infusion; IV Intake: rg5 500ml 22:28 Drug: metroNIDAZOLE IVPB 500 mg 100 ml IVPB at 200 ml/hr once over 30 mins Volume: 100 rg5 ml; Route: IVPB; Rate: 200 ml/hr; Infused Over: 30 mins; Site: left antecubital; 23:03 Follow up: IV Status: Completed infusion; IV Intake: 100ml rg5 23:03 Follow up: IV Status: Completed infusion; IV Intake: 500ml rg5 22:50 Drug: Ciprofloxacin IVPB 400 mg 200 ml IVPB once over 60 mins Volume: 200 ml; Route: rg5 IVPB; Infused Over: 60 mins; Site: left antecubital; 23:46 Follow up: Response: No adverse reaction; IV Status: Completed infusion; IV Intake: rg5 200ml Disposition Summary: 06/09/24 21:45 Hospitalization Ordered Notes: Hospitalization Status: Observation kb Provider: Jt Jimenes Location: Telemetry/[facility] (observation) Condition: Stable kb Problem: new kb Symptoms: are unchanged kb Bed/Room Type: Standard Room Assignment: 203(06/09/24 23:14) [facility] Diagnosis - Proctocolitis kb - Ileus, unspecified kb Forms: - Medication Reconciliation Form kb - SBAR form kb - Leadership Thank You Letter kb Addendum: 06/11/2024 07:22 Co-signature as Attending Physician, Anton Ly MD I reviewed the patient's care r n provided by the Advanced Practice Provider and agree with the diagnosis and treatment plan. Signatures: Dispatcher [employer] Shakila Castillo, AIRCRAFT POWERTRAIN REPAIRER-C AIRCRAFT POWERTRAIN REPAIRER-Ckb Anton Ly MD MD rn Forrester, Kelsey Maroul [facility] Jean Graff RN RN rg5 Corrections: (The following items were deleted from the chart) 06/09 19:25 19:25 Abdomen Pelvis W Con+CT.RAD.BRZ ordered. EDMS EDMS 19:25 19:23 PMHx: Hypercholesterolemia; rg5 rg5 19:25 19:23 PMHx: Hemiplegia and hemiparesis; rg5 rg5 19:25 19:23 PMHx: Hemiplegia and hemiparesis; rg5 rg5 19:25 19:23 PMHx: Hemiplegia and hemiparesis; rg5 rg5 19:25 19:23 PMHx: Hemiplegia and hemiparesis; rg5 rg5 19:25 19:23 PMHx: Hemiplegia and hemiparesis; rg5 rg5 19:25 19:23 PMHx: Hemiplegia and hemiparesis; rg5 rg5 19:25 19:23 PMHx: Hemiplegia and hemiparesis; rg5 rg5 19:25 19:23 PMHx: Hemiplegia and hemiparesis; rg5 rg5 19:25 19:23 PMHx: Hemiplegia and hemiparesis; rg5 rg5 23:14 21:45 kb kmf
--- NOTE | 2024-06-09 21:46 | ER ---
Nurse's Notes [facility] Name: Donaldo English Age: 69 yrs Sex: Male : 1955 Arrival Date: 06/09/2024 Time: 19:07 Bed 13 Private MD: Diagnosis: Proctocolitis;Ileus, unspecified Presentation: 06/09 19:18 Chief complaint: EMS states: family called ambulance because the patient is crying in rg5 pain on his abdomen around 4pm at the [facility]. Coronavirus screen: Client denies travel out of the [place] in the last 14 days. Ebola Screen: Patient negative for fever greater than or equal to 101.5 degrees Fahrenheit, and additional compatible Ebola Virus Disease symptoms. Initial Sepsis Screen: Does the patient meet any 2 criteria? No. Patient's initial sepsis screen is negative. Does the patient have a suspected source of infection? No. Patient's initial sepsis screen is negative. Risk Assessment: Do you want to hurt yourself or someone else? Patient reports no desire to harm self or others. Onset of symptoms was June 09, 2024. 19:18 Method Of Arrival: EMS: [facility] rg5 19:18 Acuity: LILIANA 3 rg5 Triage Assessment: 19:23 General: Appears in no apparent distress. Behavior is calm, cooperative, appropriate rg5 for age. Pain: Complains of pain in abdomen Pain currently is 5 out of 10 on a pain scale. Quality of pain is described as aching, Pain began 3 hours ago. EENT: No deficits noted. Neuro: Level of Consciousness is awake, alert, obeys commands, Oriented to person, place, time, Rn Travel are weak on right in right Gait is shuffling, Speech is slurred. Cardiovascular: Denies chest pain, shortness of breath, Patient's skin is warm and dry. Respiratory: Airway is patent Trachea midline Respiratory effort is even, unlabored. GI: Abdomen is round non-distended, Abd is soft and non tender Reports Pain is 5 out of 10 on a pain scale. : No signs and/or symptoms were reported regarding the genitourinary system. Derm: Skin is intact, Skin is dry, Skin is normal, Skin temperature is warm. Musculoskeletal: Range of motion: limited in right arm. Historical: - Allergies: 19:23 No Known Allergies; rg5 - PMHx: 19:23 Cerebrovascular accident; coronary atherosclerosis; Dementia; depressive disorder; rg5 diabetes mellitus; Hemiplegia and hemiparesis; Hypertensive disorder; Hypothyroidism; Right sided weakness; schizoaffective disorder; Seizure; Speech disturbances; - Immunization history:: Adult Immunizations up to date. - Infectious Disease History:: Denies. - Social history:: Smoking status: Patient denies any tobacco usage or history of. Screenin:29 [facility] ED Fall Risk Assessment (Adult) History of falling in the last 3 months, rg5 including since admission. 19:34 [facility] ED Fall Risk Assessment (Adult) Confusion or Disorientation Yes (5 pts) rg5 Intoxicated or Sedated No (0 pts) Impaired Gait Yes (1 pt) Mobility Assist Device Used Yes (1 pt) Altered Elimination No (0 pt) Score/Fall Risk Level 3 or more points = High Risk Oriented to surroundings, Maintained a safe environment, Educated pt \T\ family on fall prevention, incl call for assistance when getting out of bed, Hourly rounding (assess needs \T\ fall precautionary measures) done. Abuse screen: Denies threats or abuse. Nutritional screening: No deficits noted. Tuberculosis screening: No symptoms or risk factors identified. Assessment: 19:29 Reassessment: see triage assessment. rg5 19:29 GI: Bowel sounds present in left upper quadrant. rg5 19:29 Respiratory: Airway is patent Trachea midline Respiratory effort is even, unlabored, rg5 Respiratory pattern is regular, symmetrical. GI: Abd is soft and non tender. Vital Signs: 19:18 BP 135 / 61; Pulse 78; Resp 17; Temp 98.1(O); Pulse Ox 100% on R/A; Weight 91.17 kg; rg5 Height 5 ft. 8 in. ; Pain 5/10; 19:23 BP 135 / 61; Pulse 78; Resp 17; Temp 98.1; Pulse Ox 100% on R/A; Pain 5/10; rg5 20:15 BP 141 / 61; Pulse 78; Resp 17; Pulse Ox 100% ; rg5 21:25 BP 130 / 72; Pulse 76; Resp 17; Pulse Ox 100% on R/A; rg5 22:19 BP 124 / 59; Pulse 75; Resp 17; Pulse Ox 100% on R/A; Pain 4/10; rg5 23:02 BP 129 / 65; Pulse 73; Resp 16; Temp 98; Pulse Ox 100% ; Pain 4/10; rg5 19:18 Body Mass Index 30.56 (91.17 kg, 172.72 cm) rg5 19:18 Pain Scale: Adult rg5 19:23 Pain Scale: Adult rg5 22:19 Pain Scale: Adult rg5 23:02 Pain Scale: Adult rg5 ED Course: 19:17 Patient arrived in ED. rg5 19:18 Jean Graff, RN is Primary Nurse. rg5 19:23 Triage completed. rg5 19:23 Inserted saline lock: 22 gauge in left antecubital area, using aseptic technique. Blood ha1 collected. Flushed with 10 mL NS. 19:23 Arm band placed on left wrist. rg5 19:24 Shakila English FNP-C is PHCP. kb 19:24 Anton Ly MD is Attending Physician. kb 19:29 Patient has correct armband on for positive identification. Bed in low position. Call rg5 light in reach. Side rails up X 1. 19:34 Door closed. Noise minimized. Warm blanket given. rg5 20:35 CT Abd/Pelvis - IV Contrast Only In Process Unspecified. EDMS 21:45 Jt Jimenes is Hospitalizing Provider. kb 22:57 No provider procedures requiring assistance completed. Patient admitted, IV remains in rg5 place. 06/10 00:34 Provided Education on: NEED FOR ADMIT. rg5 Administered Medications: 06/09 22:26 Drug: NS 0.9% IV 500 ml IV at bolus once Route: IV; Rate: bolus; Site: left antecubital;rg5 23:04 Follow up: Response: No adverse reaction; IV Status: Completed infusion; IV Intake: rg5 500ml 22:28 Drug: metroNIDAZOLE IVPB 500 mg 100 ml IVPB at 200 ml/hr once over 30 mins Volume: 100 rg5 ml; Route: IVPB; Rate: 200 ml/hr; Infused Over: 30 mins; Site: left antecubital; 23:03 Follow up: IV Status: Completed infusion; IV Intake: 100ml rg5 23:03 Follow up: IV Status: Completed infusion; IV Intake: 500ml rg5 22:50 Drug: Ciprofloxacin IVPB 400 mg 200 ml IVPB once over 60 mins Volume: 200 ml; Route: rg5 IVPB; Infused Over: 60 mins; Site: left antecubital; 23:46 Follow up: Response: No adverse reaction; IV Status: Completed infusion; IV Intake: rg5 200ml Medication: 19:29 VIS not applicable for this client. rg5 Intake: 23:03 IV: 100ml; Total: 100ml. rg5 23:03 IV: 500ml; Total: 600ml. rg5 23:04 IV: 500ml; Total: 1100ml. rg5 23:46 IV: 200ml; Total: 1300ml. rg5 Outcome: 21:45 Decision to Hospitalize by Provider. kb 06/10 00:34 Admitted to Med/surg accompanied by tech, rg5 Condition: stable Instructed on the need for admit, 00:34 Patient left the ED. rg5 Signatures: Dispatcher [employer] EDShakila Dowd, CORTEZ-C MANAGER NEONATAL-Lilly Lopez RN RN ha1 Jean Graff RN RN rg5 Corrections: (The following items were deleted from the chart) 06/09 19:25 19:23 PMHx: Hypercholesterolemia; rg5 rg5 19:25 19:23 PMHx: Hemiplegia and hemiparesis; rg5 rg5 19:25 19:23 PMHx: Hemiplegia and hemiparesis; rg5 rg5 19:25 19:23 PMHx: Hemiplegia and hemiparesis; rg5 rg5 19:25 19:23 PMHx: Hemiplegia and hemiparesis; rg5 rg5 19:25 19:23 PMHx: Hemiplegia and hemiparesis; rg5 rg5 19:25 19:23 PMHx: Hemiplegia and hemiparesis; rg5 rg5 19:25 19:23 PMHx: Hemiplegia and hemiparesis; rg5 rg5 19:25 19:23 PMHx: Hemiplegia and hemiparesis; rg5 rg5 19:25 19:23 PMHx: Hemiplegia and hemiparesis; rg5 rg5
[2024-06-09] MEDS ORDERED: CIPROFLOXACIN 400mg IV 400 MG/200 ML BAG IV ONE (22:23)
[2024-06-09] MEDS ORDERED: NA CHLORIDE 0.9% 500 ML ONE (22:23)
[2024-06-09] MEDS ORDERED: METRONIDAZOLE 500mg IVPB 500 MG/100 ML BAG IV ONE (22:23)
[2024-06-09] MEDS ORDERED: ONDANSETRON 4 MG/2 ML VIAL IV PRN (23:06)
[2024-06-09] MEDS ORDERED: ACETAMINOPHEN 500 MG TAB PO PRN (23:06)
--- NOTE | 2024-06-09 23:10 | P.HP ---
Certification for Inpatient Patient admitted to: Inpatient With expected LOS: >2 Midnights Practitioner: I am a practitioner with admitting privileges, knowledge of patient current condition, hospital course, and medical plan of care. Services: Services provided to patient in accordance with Admission requirements found in Title 42 Section 412.3 of the Code of Federal Regulations Patient History Date of Service: 06/10/24 Reason for admission: Abdominal pain History of Present Illness: 69-year-old senior living resident with a history of congestive heart failure, depression, recent admission about 3 weeks ago for colitis and megacolon was brought to the emergency department due abdominal pain of onset yesterday. Patient reports experiencing severe abdominal pain at the senior living, he denies any diarrhea or constipation, he denied any vomiting. He denies any fever. CT abdomen pelvis done demonstrated megacolon and pancolitis. He has no leukocytosis and does not meet criteria for sepsis. Patient is hospitalized for further management. Allergies No Known Allergies Allergy (Verified 07/22/18 11:14) Home Medications: Atorvastatin Calcium 40 mg PO DAILY 05/31/21 Clopidogrel Bisulfate [Plavix] 75 mg PO DAILY 05/31/21 Furosemide [Lasix] 20 mg PO DAILY 05/31/21 Insulin Glargine,Hum.rec.anlog [Lantus] 26 unit SQ BID 05/31/21 Metoprolol Tartrate 50 mg PO BID 05/31/21 Acetaminophen [Tylenol] 650 mg PO Q4HP PRN 05/20/24 Amlodipine [Norvasc*] 5 mg PO DAILY 05/20/24 Aripiprazole [Abilify] 5 mg PO DAILY 05/20/24 Aspirin 325 mg PO DAILY 05/20/24 Divalproex [Depakote Sprinkle*] 125 mg PO TID 05/20/24 Gabapentin [Neurontin*] 100 mg PO DAILY 05/20/24 Omeprazole 20 mg PO DAILY 05/20/24 Potassium Chloride 20 meq PO DAILY 05/20/24 Rivastigmine Tartrate [Rivastigmine] 1.5 mg PO BID 05/20/24 Sertraline HCl 50 mg PO DAILY 05/20/24 Sitagliptin Phosphate [Januvia] 100 mg PO DAILY 05/20/24 levETIRAcetam [Keppra] 7.5 ml PO BID 05/20/24 Ciprofloxacin HCl [Cipro] 500 mg PO BID #14 tab 05/25/24 Levothyroxine Sodium 150 mcg PO DAILY #30 tab 05/25/24 Petrolatum 41% Oint [Aquaphor] 1 raysa TOP BID PRN jar 05/25/24 Senosides [Senokot*] 17.2 mg PO BID #0 tab 05/25/24 metroNIDAZOLE [Flagyl] 500 mg PO Q8H #21 tab 05/25/24 - Past Medical/Surgical History Diabetic: Yes -: cva -: tia -: gallstones -: diabetic retinopathy -: depression -: thyroid disease -: CABG -: thyoidectomy -: right 5th toe amputation -: BLE stents - Family History Family History: Reviewed- Non-Contributory - Social History Alcohol use: No CD- Drugs: No Place of Residence: [facility] Review of Systems Other: Patient denied any shortness of breath. He denied any cough or chest pain. Except as documented, all other systems reviewed and negative. Physical Examination - Physical Exam General: Alert, In no apparent distress, Oriented x2 HEENT: Mucous membr. moist/pink, EOMI, Sclerae nonicteric Neck: Supple, JVD not distended Respiratory: Clear to auscultation bilaterally, Normal air movement Cardiovascular: No edema, Regular rate/rhythm, Normal S1 S2 Gastrointestinal: Soft and benign, Distended, Tenderness (Mild diffuse tenderness) Musculoskeletal: No swelling Integumentary: No rashes, No cyanosis Neurological: Normal speech, Normal strength at 5/5 x4 extr Lymphatics: No axilla or inguinal lymphadenopathy - Studies Laboratory Data (last 24 hrs) 06/09/24 06/09/24 19:30 19:30 WBC 7.80 Hgb 11.6 L Hct 34.1 L Plt Count 173 Sodium 135 L Potassium 4.3 BUN 19 H Creatinine 0.98 Glucose 327 H Total Bilirubin 1.0 AST < 10 L ALT < 14 L Alkaline Phosphatase 58 Lipase 27 Assessment and Plan - Problems (Diagnosis) (1) Pancolitis Current Visit: Yes Status: Acute (2) Megacolon Current Visit: Yes Status: Acute (3) Diabetes Current Visit: No Status: Acute - Plan Pancolitis Megacolon Admitted to the medical floor Start IV Cipro and Flagyl Consult to general surgery-Dr. Flores informed. Consulted GI Dr. Lira. IV Reglan to improve motility. Monitor and optimize electrolytes. Analgesics as needed. Aggressive blood sugar control. Resume rivastigmine which may help also improve intestinal motility Diabetes mellitus type 2 Insulin sliding scale Hold Januvia Seizure disorder Resume Keppra Hypothyroidism Continue elevated TSH. Synthroid dose recently increased to 150 mcg daily. DVT prophylaxis: Lovenox Advance directive: Full code - Advance Directives Does patient have a Living Will: No Does patient have a Durable POA for Healthcare: Yes
[2024-06-10] MEDS: NA CHLORIDE 0.9% 1,000 ML IV SCH (01:11)
[2024-06-10 02:22] LABS: Specific Gravity > 1.030 (1.005-1.030); Urine Bilirubin NEGATIVE (Negative); Urine Blood Negative (Negative); Urine Clarity Clear (Clear); Urine Color Light-Yellow (Yellow); Urine Glucose 4+ (Over) (Negative); Urine Ketones TRACE (Negative); Urine Microscopic Reflex YN NO UMIC; Urine Nitrite NEGATIVE (Negative); Urine Protein NEGATIVE (Negative); Urine Urobilinogen Normal (Normal)
[2024-06-10] MEDS: METRONIDAZOLE 500mg IVPB 500 MG/100 ML BAG IV SCH (05:16)
[2024-06-10 05:35] LABS: Absolute Eosinophils 0.4 K/uL (0-0.5); Absolute Lymphocytes (CBC) 1.3 K/uL (0.7-4.9); Absolute Neutrophil 5.8 K/uL (1.8-8.0); Basophils % 0.5 % (0-1.3); Eosinophils % 4.6 % (0-4.4); Hematocrit 36.2 % (39.6-49.0); Hemoglobin 11.9 g/dL (13.6-17.9); Lymphocytes % 15.2 % (15.3-44.8); MCH 28.6 pg (27.0-35.0); MCHC 32.9 g/dL (32.0-36.0); MCV 86.9 fL (80-100); MPV 8.7 fL (7.6-11.3); Monocytes % 11.8 % (3.3-12.3); Neutrophils % 67.9 % (41.7-73.7); Nucleated Red Blood Cells % 0.1 % (0-0); Platelets 159 thou/uL (152-406); RBC Red Blood Cell Count 4.17 M/uL (4.33-5.43); Red Cell Distribution Width 16.4 % (12.1-15.2)
[2024-06-10 05:46] LABS: Albumin 2.8 g/dL (3.4-5.0); Albumin/Globulin Ratio 0.9 (1.1-1.8); Alkaline Phosphatase 49 U/L (45-117); BUN Blood Urea Nitrogen 15 mg/dL (7-18); Bicarbonate 29 mEq/L (21-32); Bilirubin Total 1.1 mg/dL (0.2-1.0); Glomerular Filtration Rate 99 ml/min (=/>90); Glucose Level 130 mg/dL (74-106); Magnesium 2.1 mg/dL (1.6-2.4); Phosphorus 2.4 mg/dL (2.5-4.9); Protein, Total 5.8 g/dL (6.4-8.2); Sodium Level 139 mEq/L (136-145)
[2024-06-10 05:54] LABS: ALT/SGPT < 14 U/L (16-61); AST/SGOT < 10 U/L (15-37)
[2024-06-10] MEDS: POTASS/SODIUM PHOSPHATE 1 PKT POWD.PACK PO SCH (09:01)
[2024-06-10] MEDS: ENOXAPARIN 40 MG/0.4 ML SQ SCH (09:01)
[2024-06-10] MEDS: CIPROFLOXACIN 400mg IV 400 MG/200 ML BAG IV SCH (09:02)
--- NOTE | 2024-06-10 10:29 | P.PN ---
Subjective Date of Service: 06/10/24 Chief Complaint: Abdominal pain Pt is resting comfortably in bed. He denies any chest pain or SOB. Pt denies any BM or flatus. No diarrhea. Consulted GI. He is getting iv falgyl and cipro. No other complaints. Review of Systems General: Unremarkable Eyes: Unremarkable ENT: Unremarkable Respiratory: Unremarkable Cardiovascular: Unremarkable Gastrointestinal: Abdominal Pain Genitourinary: Unremarkable Musculoskeletal: Unremarkable Integumentary: Unremarkable Neurological: Unremarkable Lymphatics: Unremarkable Physical Examination - Vital Signs Temperature: 97.6 F Blood Pressure: 137/65 Pulse: 63 Respirations: 18 Pulse Ox (%): 100 - Physical Exam General: Alert, In no apparent distress, Oriented x3 HEENT: Atraumatic, Normocephalic, PERRLA Neck: Supple, 2+ carotid pulse no bruit, JVD not distended Respiratory: Clear to auscultation bilaterally, Normal air movement Cardiovascular: No edema, Normal pulses, Regular rate/rhythm, Normal S1 S2 Capillary refill: <2 Seconds Gastrointestinal: Normal bowel sounds, Soft and benign, Non-distended Musculoskeletal: No clubbing, No swelling, No contractures Integumentary: No rashes, No breakdown, No significant lesion Neurological: Normal gait, Normal speech, Normal strength at 5/5 x4 extr, Normal tone Lymphatics: No axilla or inguinal lymphadenopathy - Studies Laboratory Data (last 24 hrs) 06/09/24 06/09/24 19:30 19:30 WBC 7.80 Hgb 11.6 L Hct 34.1 L Plt Count 173 Sodium 135 L Potassium 4.3 BUN 19 H Creatinine 0.98 Glucose 327 H Total Bilirubin 1.0 AST < 10 L ALT < 14 L Alkaline Phosphatase 58 Lipase 27 Assessment And Plan - Plan Pancolitis / Megacolon: Per CT abd. Pt was recently treated for colitis. Will continue iv cipro and flagyl. Pt is NPO. Consulted GI and gen surgeon. Will f/u C diff toxin. Continue iv regaln to improve intestinal motility. Diabetes mellitus type 2: Will continue accuchek, SSI and ADA diet when able to eat. Hold Januvia Seizure disorder: Resume Keppra Hypothyroidism: Continue synthroid DVT ppx: Lovenox Code: Full code
--- NOTE | 2024-06-10 16:51 | CON ---
Date of Consultation: 06/10/2024 Reason For Consultation: Sigmoid colitis with megacolon. History Of Present Illness: This patient is a 69-year-old white male with history of diabetes, hyper tension, congestive heart failure, stroke, TIA, diabetic retinopathy. Patient presented to hospital with abdominal pain. He now denies history of severe abdominal pain, presumably in the lower abdomen . CT revealed megacolon pancolitis of note 3 weeks ago. He was admitted with colitis with megacolon at that time. Now, he has since stay in the hospital, he has been on IV fluids, IV antib iotics. His pain has improved. The patient now states he has no abdominal pain, feels fine at curre nt time, notes no pain. No diarrhea, constipation, melena, hematochezia, nausea, vomiting, fevers, c hills, night sweats. No symptoms at all. He reports does have some dementia. Past Medical History: Significant for diabetes, hypertension, congestive heart failure, stroke, TIA, diabetic retinopathy, thyroid disease status post thyroidectomy, gallstones, depression, CABG, fifth right toe amputation, bilateral lower extremity stents for peripheral vascular disease, and colitis with megacolon 3 weeks ago. Home Medications: Include atorvastatin, Plavix, Lasix, Lantus insulin, metoprolol, Tylenol, Norvasc, Abilify, aspirin, Depakote, Neurontin, Prilosec, potassium, rivastigmine, sertraline, sitagliptin al so called Januvia, Keppra, Cipro, Levaquin, Aquaphor, Senokot, and Flagyl. Social History: He is , 3 children, 2 boys, 1 girl. No tobacco. No alcohol. Family History: Father and mother of myocardial infarction he reports. Review of Systems: The patient appeared to be in severe pain. Prior to admission now, patient states he denies any abdo vu pain, fevers, chills, night sweats, nausea, vomiting, diarrhea, constipation, change in bowel h abits, melena, hematochezia, depression, anxiety, muscle aches, joint aches, backaches, chest pain, s hort of breath, seizure, syncope. Though, he does have some early dementia. Physical Examination: Vital Signs: He is 5 feet 8 inches, 201 pounds, BMI 30.6 kg/m sq. He has a temperature 97.6 degrees Fahrenheit, pulse 63, respirations 18, blood pressure 133/65, O2 saturation 100%. HEENT: Normocephalic, atraumatic. Anicteric. Pupils equal, round, and reactive to light. Extraocu lar movements are intact. Oropharynx is clear. Neck: Supple. No masses. Respirations: Clear to auscultation bilaterally. Cardiac: Regular rate and rhythm. Gastrointestinal: Positive bowel sounds. Soft, nontender, nondistended. No hepatosplenomegaly. Mi ld obesity. No pain on palpation at all. No peritoneal or Ridley sign. No rebound. Extremities: No clubbing, cyanosis, or edema. 2+ pulses. Neuro: Alert and oriented x3. Grossly nonfocal. 5/5 motor strength. Sensation intact to light chani ch. Laboratory Data: White count of 8.5, hemoglobin of 11.9, hematocrit 36.2, MCV of 87, platelet count 159. Polys 68%, lymphocytes 15%, monocytes 12%, eosinophils 5%. The patient has sodium 139, potassi um 4.0, chloride 106, bicarb of 29, BUN of 15, creatinine of 0.7, glucose 130, calcium 8.6, phosphoru s 2.4, magnesium 2.1, total bilirubin 1.1, AST less than 10, ALT less than 14, alkaline phosphatase 4 9, total protein 5.8, albumin 2.8, lipase 27. UA specific gravity greater than 1.030, 4+ glucose, tr jabari ketones, otherwise negative. CT abdomen and pelvis reveals marked distention of sigmoid colon ai r-fluid level, moderate wall thickening of the rectum. Possible infectious colitis, ileus, Hirschspr sandeep, or other. More likely infection. Impression: 1.Sigmoid colitis and megacolon second event, first event 3 weeks ago in hospital, improved on IV an tibiotics. The fact the patient has wall thickening in the distal colon and rectum with inflammation suggests possible infectious etiology as opposed to an inflammatory bowel disease or Hirschsprung or other. The patient denies any nausea, vomiting, fevers, chills, night sweats, change in bowel habit s, diarrhea, constipation, melena, hematochezia. Has no abdominal pain currently. Says he feels fin e . His last colonoscopy was approximately 20 years ago. 2.History of diabetes, hypertension, congestive heart failure, stroke, transient ischemic attack, di abetic retinopathy, thyroid disease, thyroidectomy, gallstones, depression, coronary artery bypass gr aft, fifth toe amputation, bilateral lower extremity stent, peripheral vascular disease, and megacolo n with colitis 3 weeks ago. Recommendation: 1.Continue IV fluids. 2.Continue IV antibiotics. 3.Consider Questran therapy if this is indeed infectious etiology. 4.If diarrhea occurs, check stool studies. 5.Review all medicines for possible etiology for possible colon dilatation. 6.Consider Hirschsprung disease if antibiotics not effective. 7.Consider colonoscopy. SUZIE/INGRID Voice ID: [id number] Report ID: [id number]
[2024-06-10] MEDS: levETIRAcetam 750 MG in NA CHLORIDE 0.9% 100 ML IV SCH (20:14)
[2024-06-10] MEDS: MORPHINE 2 MG/ML SYR IV PRN (22:00)
[2024-06-11 02:51] VITALS: BMI 30.5
[2024-06-11 08:15] LABS: Absolute Basophils 0.1 K/uL (0-0.5); Absolute Eosinophils 0.3 K/uL (0-0.5); Absolute Lymphocytes (CBC) 0.8 K/uL (0.7-4.9); Absolute Monocytes 0.8 K/uL (0.1-1.3); Absolute Neutrophil 4.7 K/uL (1.8-8.0); Hematocrit 37.1 % (39.6-49.0); Hemoglobin 12.2 g/dL (13.6-17.9); Lymphocytes % 11.6 % (15.3-44.8); MCH 28.5 pg (27.0-35.0); MCHC 32.8 g/dL (32.0-36.0); MCV 86.9 fL (80-100); MPV 8.6 fL (7.6-11.3); Neutrophils % 71.4 % (41.7-73.7); Nucleated RBC Absolute Count 0.1 (0-0); Nucleated Red Blood Cells % 0.8 % (0-0); Platelets 157 thou/uL (152-406); RBC Red Blood Cell Count 4.27 M/uL (4.33-5.43); Red Cell Distribution Width 16.3 % (12.1-15.2)
[2024-06-11 08:27] LABS: Anion Gap 6.8 mEq/L (5.0-15.0); Potassium 3.8 mEq/L (3.5-5.1)
--- NOTE | 2024-06-11 10:19 | P.PN ---
Subjective Date of Service: 06/11/24 Chief Complaint: Abdominal pain Pt is resting comfortably in bed. He has blood stain on his chest wall due to pulling out his peripheral iv line. He denies any chest pain or SOB. Pt denies any BM or flatus. No diarrhea. Consulted GI. He is getting iv Cipro and Flagyl. No other complaints. Review of Systems General: Unremarkable Eyes: Unremarkable ENT: Unremarkable Respiratory: Unremarkable Cardiovascular: Unremarkable Gastrointestinal: Unremarkable Genitourinary: Unremarkable Musculoskeletal: Unremarkable Integumentary: Unremarkable Neurological: Unremarkable Lymphatics: Unremarkable Physical Examination - Vital Signs Temperature: 97.9 F Blood Pressure: 146/69 Pulse: 80 Respirations: 18 Pulse Ox (%): 99 - Physical Exam General: Alert, In no apparent distress, Oriented x3 HEENT: Atraumatic, Normocephalic, PERRLA Neck: Supple, 2+ carotid pulse no bruit, JVD not distended Respiratory: Clear to auscultation bilaterally, Normal air movement Cardiovascular: No edema, Normal pulses, Regular rate/rhythm, Normal S1 S2 Capillary refill: <2 Seconds Gastrointestinal: Normal bowel sounds, Soft and benign, Non-distended Musculoskeletal: No clubbing, No swelling, No contractures Integumentary: No rashes, No breakdown, No significant lesion Neurological: Normal gait, Normal speech, Normal strength at 5/5 x4 extr, Normal tone, Sensation intact Lymphatics: No axilla or inguinal lymphadenopathy Assessment And Plan - Plan Pancolitis / Megacolon: Per CT abd. Pt was recently treated for colitis. Will continue iv cipro and flagyl. Pt is NPO. Consulted GI and Gen surgeon. Will f/u C diff toxin. Continue iv regaln to improve intestinal motility. GI recommends to consider hirschsprung disease if his condition does not improve. Will do colonoscopy on outpt. Diabetes mellitus type 2: Will continue accuchek, SSI and ADA diet when able to eat. Hold Januvia Seizure disorder: Resume Keppra Hypothyroidism: Continue synthroid DVT ppx: Lovenox Code: Full code
[2024-06-12 06:54] LABS: Anion Gap 7.6 mEq/L (5.0-15.0); Phosphorus 2.8 mg/dL (2.5-4.9); Potassium 3.6 mEq/L (3.5-5.1)
[2024-06-12 08:00] LABS: Absolute Basophils 0.1 K/uL (0-0.5); Absolute Eosinophils 0.2 K/uL (0-0.5); Absolute Lymphocytes (CBC) 0.5 K/uL (0.7-4.9); Absolute Monocytes 0.8 K/uL (0.1-1.3); Absolute Neutrophil 4.3 K/uL (1.8-8.0); Eosinophils % 3.7 % (0-4.4); Hematocrit 36.9 % (39.6-49.0); Hemoglobin 12.1 g/dL (13.6-17.9); Lymphocytes % 9.2 % (15.3-44.8); MCH 28.6 pg (27.0-35.0); MCHC 32.7 g/dL (32.0-36.0); MCV 87.3 fL (80-100); MPV 8.5 fL (7.6-11.3); Neutrophils % 73.1 % (41.7-73.7); Platelets 151 thou/uL (152-406); RBC Red Blood Cell Count 4.22 M/uL (4.33-5.43); Red Cell Distribution Width 16.5 % (12.1-15.2)
[2024-06-12] MEDS: POTASSIUM 25 MEQ EFFERV TAB PO ONE (09:00)
[2024-06-12] MEDS: Ciprofloxacin 200mg IV 400 MG/200 ML IV.SOLN. IV SCH (11:00)
[2024-06-12 21:08] VITALS: O2SAT 100
[2024-06-13 05:26] LABS: Absolute Eosinophils 0.2 K/uL (0-0.5); Absolute Lymphocytes (CBC) 0.8 K/uL (0.7-4.9); Absolute Monocytes 0.9 K/uL (0.1-1.3); Absolute Neutrophil 3.7 K/uL (1.8-8.0); Basophils % 0.8 % (0-1.3); Eosinophils % 4.2 % (0-4.4); Hematocrit 32.3 % (39.6-49.0); Hemoglobin 11.2 g/dL (13.6-17.9); Lymphocytes % 14.7 % (15.3-44.8); MCH 29.5 pg (27.0-35.0); MCHC 34.6 g/dL (32.0-36.0); MCV 85.3 fL (80-100); Neutrophils % 65.3 % (41.7-73.7); Nucleated Red Blood Cells % 0.1 % (0-0); Platelets 162 thou/uL (152-406); RBC Red Blood Cell Count 3.79 M/uL (4.33-5.43); Red Cell Distribution Width 16.2 % (12.1-15.2)
[2024-06-13 05:40] LABS: Anion Gap 7.7 mEq/L (5.0-15.0); Potassium 3.7 mEq/L (3.5-5.1)
[2024-06-13] MEDS: POTASSIUM CL SA 10 MEQ TAB PO ONE (09:08)
--- NOTE | 2024-06-13 11:35 | RAD REPORT ---
EXAM: AP view(s) of the abdomen Abdomen 1 View (KUB) HISTORY: r/o bowel obstruction COMPARISON: CT 06/09/2024, radiograph 05/25/2024 FINDINGS: Diffuse colonic distention. This is grossly similar to the CT from 06/09/2024.. The column o f air extends down to about the level of the upper rectum. Wall thickening in the rectum was present on the CT from 06/09/2024. No suspicious calcifications are seen. No acute osseous abnormality . IMPRESSION: Diffuse colonic distention similar to 06/09/2024 and possibly representing an adynamic ile us or possibly rectal obstruction. The former is favored.
--- NOTE | 2024-06-13 14:04 | P.PN ---
Subjective Date of Service: 06/12/24 Chief Complaint: Abdominal pain Pt is resting comfortably in bed. He has blood stain on his chest wall due to pulling out his peripheral iv line. He denies any chest pain or SOB. Pt denies any BM or flatus. No diarrhea. Consulted GI. He is getting iv Cipro and Flagyl. No BM or flatus. No other complaints. Review of Systems General: Unremarkable Eyes: Unremarkable ENT: Unremarkable Respiratory: Unremarkable Cardiovascular: Unremarkable Gastrointestinal: Unremarkable Genitourinary: Unremarkable Musculoskeletal: Unremarkable Integumentary: Unremarkable Neurological: Unremarkable Lymphatics: Unremarkable Physical Examination - Vital Signs Temperature: 98.4 F Blood Pressure: 120/61 Pulse: 83 Respirations: 18 Pulse Ox (%): 100 - Physical Exam General: Alert, In no apparent distress, Oriented x3 HEENT: Atraumatic, Normocephalic, PERRLA Neck: Supple, 2+ carotid pulse no bruit Respiratory: Clear to auscultation bilaterally, Normal air movement Cardiovascular: No edema, Normal pulses, Regular rate/rhythm, Normal S1 S2 Capillary refill: <2 Seconds Gastrointestinal: Normal bowel sounds, Soft and benign, Non-distended Musculoskeletal: No clubbing, No swelling, No contractures Integumentary: No rashes, No breakdown, No significant lesion Neurological: Normal gait, Normal speech, Normal strength at 5/5 x4 extr Lymphatics: No axilla or inguinal lymphadenopathy Assessment And Plan - Plan Pancolitis / Megacolon: Per CT abd. Pt was recently treated for colitis. Will continue iv cipro and flagyl. Pt is tolerating CLD. No BM or flatus. Consulted GI and Gen surgeon. Will f/u C diff toxin. Continue iv regaln to improve intestinal motility. GI recommends to consider hirschsprung disease if his condition does not improve. Will do colonoscopy on outpt. Diabetes mellitus type 2: Will continue accuchek, SSI and ADA diet when able to eat. Hold Januvia Seizure disorder: Resume Keppra Hypothyroidism: Continue synthroid DVT ppx: Lovenox Code: Full code Dispo: Pending hospital course.
[2024-06-13] MEDS: MINERAL OIL 30 ML UCUP PO ONE (14:25)
--- NOTE | 2024-06-13 18:41 | P.DS ---
Admission Date: 06/09/24 Discharge Date: 06/13/24 Reason for Admission: Abdominal pain Brief History of Present Illness: 69-year-old skilled nursing resident with a history of congestive heart failure, depression, recent admission about 3 weeks ago for colitis and megacolon was brought to the emergency department due abdominal pain of onset yesterday. Patient reports experiencing severe abdominal pain at the skilled nursing, he denies any diarrhea or constipation, he denied any vomiting. He denies any fever. CT abdomen pelvis done demonstrated megacolon and pancolitis. He has no leukocytosis and does not meet criteria for sepsis. Patient is hospitalized for further management. Hospital Course: Pancolitis / Megacolon: Per CT abd. Pt was recently treated for colitis. Will continue iv cipro and flagyl. Pt is tolerating CLD. No BM or flatus. Consulted GI and Gen surgeon. Will f/u C diff toxin. Continue iv regaln to improve intestinal motility. GI recommends to consider hirschsprung disease if his condition does not improve. Will do colonoscopy on outpt. Diabetes mellitus type 2: Will continue accuchek, SSI and ADA diet when able to eat. Hold Januvia Seizure disorder: Resume Keppra Hypothyroidism: Continue synthroid <Michelle Conti - Last Filed: 06/13/24 18:42> Admission Date: 06/09/24 Discharge Date: 06/15/24 Hospital Course: Pt traci nd examined. I agree with the note by the [employer]. Pt is tolerating food and having bowel movement. Will dc with cipro and flagyl. Will f/u with GI and PCP in clinic. Ok to dc pt. <Keerthi Ravi C - Last Filed: 06/15/24 21:59> Disposition: TRANSFER TO [facility] Discharge Condition: GOOD Vital Signs/Physical Exam: Temp Pulse Resp BP Pulse Ox 98.3 F 102 H 18 132/72 100 06/13/24 16:00 06/13/24 16:00 06/13/24 17:38 06/13/24 16:00 06/13/24 17:38 General: Alert, In no apparent distress, Oriented x3 HEENT: Atraumatic, Normocephalic Neck: Supple, 2+ carotid pulse no bruit Respiratory: Clear to auscultation bilaterally, Normal air movement Cardiovascular: No edema, Normal pulses Capillary refill: <2 Seconds Gastrointestinal: Normal bowel sounds, Other (eating and having BMs) Musculoskeletal: No clubbing, No swelling Integumentary: No rashes, No breakdown Neurological: Normal speech, Normal tone, Normal affect Lymphatics: No axilla or inguinal lymphadenopathy External genitalia: Deferred Rectal: Deferred Laboratory Data at Discharge: WBC 5.70 thou/uL (4.3-10.9) 06/13/24 05:04 Hgb 11.2 g/dL (13.6-17.9) L 06/13/24 05:04 Hct 32.3 % (39.6-49.0) L 06/13/24 05:04 Plt Count 162 thou/uL (152-406) 06/13/24 05:04 Sodium 138 mEq/L (136-145) 06/13/24 05:04 Potassium 3.7 mEq/L (3.5-5.1) 06/13/24 05:04 BUN 8 mg/dL (7-18) 06/13/24 05:04 Creatinine 0.72 mg/dL (0.70-1.30) 06/13/24 05:04 Glucose 174 mg/dL (74-106) H 06/13/24 05:04 Phosphorus 2.8 mg/dL (2.5-4.9) 06/12/24 06:14 Magnesium 2.1 mg/dL (1.6-2.4) 06/10/24 05:06 Total Bilirubin 1.1 mg/dL (0.2-1.0) H 06/10/24 05:06 AST < 10 U/L (15-37) L 06/10/24 05:06 ALT < 14 U/L (16-61) L 06/10/24 05:06 Alkaline Phosphatase 49 U/L (45-117) 06/10/24 05:06 Lipase 27 U/L (13-75) 06/09/24 19:30 <Conti,Michelle Alexis - Last Filed: 06/13/24 18:42> Vital Signs/Physical Exam: Temp Pulse Resp BP Pulse Ox 98.2 F 77 16 121/51 L 97 06/14/24 04:00 06/14/24 04:00 06/14/24 04:00 06/14/24 04:00 06/14/24 04:00 Laboratory Data at Discharge: WBC 5.80 thou/uL (4.3-10.9) 06/14/24 04:18 Hgb 11.0 g/dL (13.6-17.9) L 06/14/24 04:18 Hct 31.5 % (39.6-49.0) L 06/14/24 04:18 Plt Count 175 thou/uL (152-406) 06/14/24 04:18 Sodium 137 mEq/L (136-145) 06/14/24 04:18 Potassium 3.8 mEq/L (3.5-5.1) 06/14/24 04:18 BUN 11 mg/dL (7-18) 06/14/24 04:18 Creatinine 0.60 mg/dL (0.70-1.30) L 06/14/24 04:18 Glucose 204 mg/dL (74-106) H 06/14/24 04:18 Phosphorus 2.8 mg/dL (2.5-4.9) 06/12/24 06:14 Magnesium 2.1 mg/dL (1.6-2.4) 06/10/24 05:06 Total Bilirubin 1.1 mg/dL (0.2-1.0) H 06/10/24 05:06 AST < 10 U/L (15-37) L 06/10/24 05:06 ALT < 14 U/L (16-61) L 06/10/24 05:06 Alkaline Phosphatase 49 U/L (45-117) 06/10/24 05:06 Lipase 27 U/L (13-75) 06/09/24 19:30 <Keerthi Ravi - Last Filed: 06/15/24 21:59> Diet: AHA Activity: Ad arianna <Conti,Michelle Alexis - Last Filed: 06/13/24 18:42> <Keerthi Ravi - Last Filed: 06/15/24 21:59> Home Medications: Atorvastatin Calcium 40 mg PO DAILY 05/31/21 Clopidogrel Bisulfate [Plavix] 75 mg PO DAILY 05/31/21 Furosemide [Lasix] 20 mg PO DAILY 05/31/21 Insulin Glargine,Hum.rec.anlog [Lantus] 26 unit SQ BID 05/31/21 Metoprolol Tartrate 50 mg PO BID 05/31/21 Acetaminophen [Tylenol] 650 mg PO Q4HP PRN 05/20/24 Amlodipine [Norvasc*] 5 mg PO DAILY 05/20/24 Aripiprazole [Abilify] 5 mg PO DAILY 05/20/24 Aspirin 325 mg PO DAILY 05/20/24 Divalproex [Depakote Sprinkle*] 3 cap PO BID 05/20/24 Gabapentin [Neurontin*] 100 mg PO DAILY 05/20/24 Omeprazole 20 mg PO DAILY 05/20/24 Potassium Chloride 20 meq PO DAILY 05/20/24 Rivastigmine Tartrate [Rivastigmine] 1.5 mg PO BID 05/20/24 Sertraline HCl 50 mg PO DAILY 05/20/24 Sitagliptin Phosphate [Januvia] 100 mg PO DAILY 05/20/24 levETIRAcetam [Keppra] 7.5 ml PO BID 05/20/24 Petrolatum 41% Oint [Aquaphor] 1 raysa TOP BID PRN jar 05/25/24 Lactulose 30 ml PO Q12HP PRN 06/10/24 Levothyroxine Sodium 125 mcg PO DAILY 06/10/24 Ciprofloxacin HCl [Cipro 500 MG Tablet] 500 mg PO BID 6 Days #12 tab 06/13/24 metroNIDAZOLE [Flagyl] 500 mg PO Q8H 6 Days #18 tab 06/13/24 New Medications: Ciprofloxacin HCl [Cipro 500 MG Tablet] 500 mg PO BID 6 Days #12 tab metroNIDAZOLE [Flagyl] 500 mg PO Q8H 6 Days #18 tab Followup: Edilson Holman MD [Primary Care Provider] - Franco Lira MD [ASSOCIATE-ACTIVE - CAN ADMIT] -
[2024-06-14 04:45] LABS: Absolute Eosinophils 0.3 K/uL (0-0.5); Absolute Monocytes 0.9 K/uL (0.1-1.3); Absolute Neutrophil 3.6 K/uL (1.8-8.0); Basophils % 0.8 % (0-1.3); Eosinophils % 5.3 % (0-4.4); Hematocrit 31.5 % (39.6-49.0); Lymphocytes % 16.7 % (15.3-44.8); MCH 29.6 pg (27.0-35.0); MCHC 34.8 g/dL (32.0-36.0); MCV 85.1 fL (80-100); Monocytes % 15.4 % (3.3-12.3); Neutrophils % 61.8 % (41.7-73.7); Nucleated Red Blood Cells % 0.1 % (0-0); Platelets 175 thou/uL (152-406); RBC Red Blood Cell Count 3.71 M/uL (4.33-5.43); Red Cell Distribution Width 16.5 % (12.1-15.2)
[2024-06-14 05:00] LABS: Anion Gap 7.8 mEq/L (5.0-15.0); Potassium 3.8 mEq/L (3.5-5.1)
[2024-06-14 05:01] VITALS: BP 121/51; TEMP 98.2
--- NOTE | 2024-06-21 22:01 | P.DS ---
Discharge Date: 06/14/24 Disposition: TRANSFER TO ALF Discharge Condition: GOOD Reason for Admission: Abdominal pain Brief History of Present Illness: Brief History of Present Illness: 69-year-old [facility] resident with a history of congestive heart failure, depression, recent admission about 3 weeks ago for colitis and megacolon was brought to the emergency department due abdominal pain of onset yesterday. Patient reports experiencing severe abdominal pain at the [facility], he denies any diarrhea or constipation, he denied any vomiting. He denies any fever. CT abdomen pelvis done demonstrated megacolon and pancolitis. He has no leukocytosis and does not meet criteria for sepsis. Patient is hospitalized for further management. Hospital Course: Hospital Course: Pancolitis / Megacolon: Per CT abd. Pt was recently treated for colitis. Will continue iv cipro and flagyl. Pt is tolerating CLD. No BM or flatus. Consulted GI and Gen surgeon. Will f/u C diff toxin. Continue iv regaln to improve intestinal motility. GI recommends to consider hirschsprung disease if his condition does not improve. Will do colonoscopy on outpt. Diabetes mellitus type 2: Will continue accuchek, SSI and ADA diet when able to eat. Hold Januvia Seizure disorder: Resume Keppra Hypothyroidism: Continue synthroid Vital Signs/Physical Exam: Temp Pulse Resp BP Pulse Ox 98.2 F 77 16 121/51 L 97 06/14/24 04:00 06/14/24 04:00 06/14/24 04:00 06/14/24 04:00 06/14/24 04:00 General: Alert, In no apparent distress, Oriented x3 Laboratory Data at Discharge: WBC 5.80 thou/uL (4.3-10.9) 06/14/24 04:18 Hgb 11.0 g/dL (13.6-17.9) L 06/14/24 04:18 Hct 31.5 % (39.6-49.0) L 06/14/24 04:18 Plt Count 175 thou/uL (152-406) 06/14/24 04:18 Sodium 137 mEq/L (136-145) 06/14/24 04:18 Potassium 3.8 mEq/L (3.5-5.1) 06/14/24 04:18 BUN 11 mg/dL (7-18) 06/14/24 04:18 Creatinine 0.60 mg/dL (0.70-1.30) L 06/14/24 04:18 Glucose 204 mg/dL (74-106) H 06/14/24 04:18 Phosphorus 2.8 mg/dL (2.5-4.9) 06/12/24 06:14 Magnesium 2.1 mg/dL (1.6-2.4) 06/10/24 05:06 Total Bilirubin 1.1 mg/dL (0.2-1.0) H 06/10/24 05:06 AST < 10 U/L (15-37) L 06/10/24 05:06 ALT < 14 U/L (16-61) L 06/10/24 05:06 Alkaline Phosphatase 49 U/L (45-117) 06/10/24 05:06 Lipase 27 U/L (13-75) 06/09/24 19:30 Home Medications: Atorvastatin Calcium 40 mg PO DAILY 05/31/21 Clopidogrel Bisulfate [Plavix] 75 mg PO DAILY 05/31/21 Furosemide [Lasix] 20 mg PO DAILY 05/31/21 Insulin Glargine,Hum.rec.anlog [Lantus] 26 unit SQ BID 05/31/21 Metoprolol Tartrate 50 mg PO BID 05/31/21 Acetaminophen [Tylenol] 650 mg PO Q4HP PRN 05/20/24 Amlodipine [Norvasc*] 5 mg PO DAILY 05/20/24 Aripiprazole [Abilify] 5 mg PO DAILY 05/20/24 Aspirin 325 mg PO DAILY 05/20/24 Divalproex [Depakote Sprinkle*] 3 cap PO BID 05/20/24 Gabapentin [Neurontin*] 100 mg PO DAILY 05/20/24 Omeprazole 20 mg PO DAILY 05/20/24 Potassium Chloride 20 meq PO DAILY 05/20/24 Rivastigmine Tartrate [Rivastigmine] 1.5 mg PO BID 05/20/24 Sertraline HCl 50 mg PO DAILY 05/20/24 Sitagliptin Phosphate [Januvia] 100 mg PO DAILY 05/20/24 levETIRAcetam [Keppra] 7.5 ml PO BID 05/20/24 Petrolatum 41% Oint [Aquaphor] 1 raysa TOP BID PRN jar 05/25/24 Lactulose 30 ml PO Q12HP PRN 06/10/24 Levothyroxine Sodium 125 mcg PO DAILY 06/10/24 Ciprofloxacin HCl [Cipro 500 MG Tablet] 500 mg PO BID 6 Days #12 tab 06/13/24 metroNIDAZOLE [Flagyl] 500 mg PO Q8H 6 Days #18 tab 06/13/24 New Medications: Ciprofloxacin HCl [Cipro 500 MG Tablet] 500 mg PO BID 6 Days #12 tab metroNIDAZOLE [Flagyl] 500 mg PO Q8H 6 Days #18 tab Physician Discharge Instructions: OK TO DC IV AND DC HOME FOLLOW-UP WITH PRIMARY CARE PROVIDER IN 1-2 WEEKS RETURN TO THE ER IF symptoms worsens CALL DR. FLORES AT [phone] IF ANY QUESTIONS REGARDING HOSPITAL STAY. PLEASE CALL THE FLOOR AT [phone] IF ANY MEDICATION OR NURSING QUESTIONS. Diet: AHA Activity: Ad arianna Followup: Franco Lira MD [ASSOCIATE-ACTIVE - CAN ADMIT] - Edilson Holman MD [Primary Care Provider] - Time spent managing pt's care (in minutes): 35
== END 2024-06-14 07:05 | DRG 394 ==
LOC: ER 19:07 → ERHOLD 23:02 → 2ND 23:47
PROVIDERS: ADMIT Internal Medicine; ATTEND Hospitalist
DX: K59.39 Other megacolon (principal); K56.7 Ileus, unspecified; E11.9 Type 2 diabetes mellitus without complications; I10 Essential (primary) hypertension; E03.9 Hypothyroidism, unspecified; G40.909 Epilepsy, unspecified, not intractable, without status epilepticus; F03.90 Unspecified dementia, unspecified severity, without behavioral disturbance, psychotic disturbance, mood disturbance, and anxiety; I25.10 Atherosclerotic heart disease of native coronary artery without angina pectoris; Z95.1 Presence of aortocoronary bypass graft; Z79.4 Long term (current) use of insulin; Z79.82 Long term (current) use of aspirin; Z79.02 Long term (current) use of antithrombotics/antiplatelets; Z86.73 Personal history of transient ischemic attack (TIA), and cerebral infarction without residual deficits; Z79.890 Hormone replacement therapy; Z79.899 Other long term (current) drug therapy; Z89.421 Acquired absence of other right toe(s)
CPT/HCPCS: 36415; 74018; 74177; 80048; 80053; 81003; 82947; 83690; 83735; 84100; 85025; 96365; 99285; J0744; J1650; J1953; J2270; J2405; J7030; J7040; Q9967

== ENCOUNTER 2024-07-14 13:12 | Emergency (ER) | payer OTHER ==
--- NOTE | 2024-07-14 14:48 | RAD REPORT ---
EXAM: CT brain without contrast HISTORY: fall trauma COMPARISON: 06/07/2024 TECHNIQUE: Multiple contiguous axial images were obtained and a CT of the brain without contrast. Sag ittal and coronal reformats were performed. FINDINGS:No evidence of hydrocephalus, intracranial hemorrhage, or extra-axial fluid collection. Left parietal region encephalomalacia. Otherwise stable moderate brain atrophy with moderate periven tricular and deep white matter chronic microvascular ischemic changes present. The calvarium is intact. The visualized paranasal sinuses and mastoid air cells are essentially clear . IMPRESSION: No evidence of acute intracranial abnormality. EXAM: CT of the cervical spine without contrast HISTORY: fall trauma COMPARISON: 06/07/2024 TECHNIQUE: Multiple contiguous axial images were obtained in a CT of the cervical spine without contr ast. Sagittal and coronal reformats were performed. FINDINGS: The vertebral bodies demonstrate normal height and alignment. Small mildly displaced fractu re at the tip of C3 spinous process.. Mild multilevel degenerative changes, without high-grade canal or foraminal stenosis No prevertebral soft tissue swelling is seen. The posterior facets are well aligned. Normal alignment of the skull base with the cervical spine is seen. The lung apices are unremarkable. IMPRESSION: Small mildly displaced fracture at the tip of C3 spinous process.
--- NOTE | 2024-07-14 14:51 | ER ---
Nurse's Notes [facility] Name: Donaldo English Age: 69 yrs Sex: Male : 1955 Arrival Date: 07/14/2024 Time: 13:12 Bed 8 Private MD: Diagnosis: Cervical fracture spinous process C3 tip only Presentation: 07/14 13:19 Chief complaint: EMS states: mechanical fall just prior to arrival, hitting head. ss Denies LOC. Coronavirus screen: Client denies travel out of the [place] in the last 14 days. Ebola Screen: Patient denies exposure to infectious person. Patient denies travel to an Ebola-affected area in the 21 days before illness onset. Mechanism of Injury: resulted from a fall, from a standing position. Initial Sepsis Screen: Does the patient meet any 2 criteria? No. Patient's initial sepsis screen is negative. Does the patient have a suspected source of infection? No. Patient's initial sepsis screen is negative. Risk Assessment: Do you want to hurt yourself or someone else? Patient reports no desire to harm self or others. 13:19 Method Of Arrival: EMS: [facility] 13:19 Acuity: LILIANA 3 ss 13:36 Onset of symptoms was July 14, 2024. mb9 Historical: - Allergies: 13:22 No Known Allergies; ss - PMHx: 13:22 Cerebrovascular accident; coronary atherosclerosis; Dementia; depressive disorder; ss diabetes mellitus; Hemiplegia and hemiparesis; Hypertensive disorder; Hypothyroidism; Right sided weakness; schizoaffective disorder; Seizure; Speech disturbances; - Immunization history:: Adult Immunizations up to date. - Social history:: Smoking status: Patient denies any tobacco usage or history of. Screenin:36 [facility] ED Fall Risk Assessment (Adult) History of falling in the last 3 months, mb9 including since admission Yes- fall prone (multiple falls) (3 pts) Confusion or Disorientation No (0 pts) Intoxicated or Sedated Impaired Gait Yes (1 pt) Mobility Assist Device Used Yes (1 pt) Altered Elimination No (0 pt) Score/Fall Risk Level 3 or more points = High Risk Oriented to surroundings, Maintained a safe environment, Educated pt \T\ family on fall prevention, incl call for assistance when getting out of bed. Abuse screen: Denies threats or abuse. Nutritional screening: No deficits noted. Tuberculosis screening: No symptoms or risk factors identified. Assessment: 13:39 General: Appears in no apparent distress. Behavior is cooperative. Pain: Denies pain. mb9 Neuro: Level of Consciousness is awake, obeys commands, confused, Oriented to person, place, Slunk [employer] Curer are equal bilaterally Moves all extremities. Pupils are PERRLA. Cardiovascular: Patient's skin is warm and dry. Respiratory: Airway is patent Respiratory effort is even, unlabored, Respiratory pattern is regular, symmetrical. GI: Abdomen is round non-distended. : No signs and/or symptoms were reported regarding the genitourinary system. EENT: No signs and/or symptoms were reported regarding the EENT system. Derm: Skin is pink, warm \T\ dry. 15:01 Reassessment: Patient appears in no apparent distress at this time. No changes from mb9 previously documented assessment. Patient and/or family updated on plan of care and expected duration. Pain level reassessed. 15:05 Reassessment: D/C pending ride home to [facility]. mb9 15:37 Reassessment: Report given to [facility] ambulance. mb9 Vital Signs: 13:36 BP 164 / 67; Pulse 74; Resp 16; Pulse Ox 100% on R/A; mb9 13:51 BP 146 / 57; Pulse 70; Resp 16; Pulse Ox 100% on R/A; db 15:01 BP 157 / 74; Pulse 78; Resp 18; Pulse Ox 99% on R/A; mb9 ED Course: 13:16 Patient arrived in ED. mb9 13:17 Elizabeth Perez MD is Attending Physician. sp3 13:22 Triage completed. ss 13:22 Arm band placed on right wrist. ss 13:30 Ritu Rucker, HIEN is Primary Nurse. mb9 13:32 CT Head C Spine In Process Unspecified. EDMS 13:36 Bed in low position. Call light in reach. Side rails up X 1. Provided Education on: mb9 press call light if needing anything. Client placed on continuous cardiac and pulse oximetry monitoring. NIBP monitoring applied. 13:37 No provider procedures requiring assistance completed. Patient did not have IV access mb9 during this emergency room visit. 14:48 Repositioned patient. Cleaned of incontinence. Linen changed. mb9 Administered Medications: No medications were administered Medication: 13:36 VIS not applicable for this client. mb9 Outcome: 14:50 Discharge ordered by MD. gonzales 15:04 Discharged to [facility]. Report called to Brenda vega 15:04 Condition: stable 15:04 Instructed on the need for transfer, 15:41 Patient left the ED. [id number] Signatures: Dispatcher [employer] EDMS Lluvia Choudhary RN RN Elizabeth Reveles MD MD sp3 Benton, Danielle RN RN Ritu Brown RN RN [id number] Corrections: (The following items were deleted from the chart) 13:22 13:22 PMHx: Hemiplegia and hemiparesis; ss ss 13:22 13:22 PMHx: Hemiplegia and hemiparesis; ss 13:51 13:30 BP 146 / 57; Pulse 70bpm; Resp 16bpm; Pulse Ox 100% RA; db db
--- NOTE | 2024-07-14 14:51 | EDPHYS ---
Physician Documentation [facility] Name: Donaldo English Age: 69 yrs Sex: Male : 1955 Arrival Date: 07/14/2024 Time: 13:12 Bed 8 Private MD: ED Physician Elizabeth Perez HPI: 07/14 13:22 This 69 yrs old Male presents to ER via EMS with complaints of Head Injury-Adult. sp3 13:22 61-year-old male with history of CVA, hemiplegia and hemiparesis, dementia, sp3 schizoaffective disorder, diabetes now presents to the ED with mechanical fall brought by EMS from snf unwitnessed. No visualized injury noted. Patient is on aspirin and snf once" cleared". Normal vital signs for EMS. Review of systems, history physical limited secondary to above PMH.. Historical: - Allergies: 13:22 No Known Allergies; ss - PMHx: 13:22 Cerebrovascular accident; coronary atherosclerosis; Dementia; depressive disorder; ss diabetes mellitus; Hemiplegia and hemiparesis; Hypertensive disorder; Hypothyroidism; Right sided weakness; schizoaffective disorder; Seizure; Speech disturbances; - Immunization history:: Adult Immunizations up to date. - Social history:: Smoking status: Patient denies any tobacco usage or history of. ROS: 13:23 Unable to obtain ROS due to baseline dementia, sp3 Exam: 13:23 Constitutional: The patient appears Vital signs normal, no gross visualized traumatic sp3 injuries noted. Neurologically grossly motor intact. Patient is verbal however disoriented. 13:23 Unable to obtain exam due to baseline dementia, Vital Signs: 13:36 BP 164 / 67; Pulse 74; Resp 16; Pulse Ox 100% on R/A; mb9 13:51 BP 146 / 57; Pulse 70; Resp 16; Pulse Ox 100% on R/A; db 15:01 BP 157 / 74; Pulse 78; Resp 18; Pulse Ox 99% on R/A; mb9 MDM: 13:17 Medical Screening Exam initiated sp3 13:23 Data reviewed: vital signs, nurses notes, old medical records, radiologic studies. ED sp3 course: 61-year-old male with probable head injury from fall. Consider closed head injury versus concussion versus ICH. CT scan of head and C-spine pending. Discharge home if negative.. 14:50 ED course: Spinous process tip fracture at C3 otherwise negative C-spine study and CT sp3 head is negative. We will safely discharge patient home at this time.. 07/14 13:20 Order name: CT Head C Spine; Complete Time: 14:49 sp3 Administered Medications: No medications were administered Disposition Summary: 07/14/24 14:50 Discharge Ordered Notes: Location: Home sp3 Condition: Stable sp3 Diagnosis - Cervical fracture spinous process C3 tip only sp3 Followup: sp3 - With: Private Physician - When: Upon discharge from the Emergency Department - Reason: Continuance of care Discharge Instructions: - Discharge Summary Sheet sp3 - Stable Cervical Spine Fracture sp3 Forms: - Medication Reconciliation Form sp3 - Antibiotic Education sp3 - Prescription Opioid Use sp3 - Patient Portal Instructions sp3 - Leadership Thank You Letter sp3 Signatures: Dispatcher [employer] Lluvia Becerra RN RN ss Elizabeth Perez MD MD sp3 Ritu Rucker RN RN mb9 Corrections: (The following items were deleted from the chart) 13:22 13:22 PMHx: Hemiplegia and hemiparesis; ss ss 13:22 13:22 PMHx: Hemiplegia and hemiparesis; ss ss
[2024-07-14 15:48] VITALS: BP 157/74; O2SAT 99
== END 2024-07-14 15:41 | disposition home or self-care (01) ==
LOC: ER 13:12
DX: S12.200A Unspecified displaced fracture of third cervical vertebra, initial encounter for closed fracture (principal); W18.30XA Fall on same level, unspecified, initial encounter; Z86.73 Personal history of transient ischemic attack (TIA), and cerebral infarction without residual deficits
CPT/HCPCS: 70450; 72125

== ENCOUNTER 2024-08-06 14:25 | Emergency (ER) | payer OTHER ==
--- NOTE | 2024-08-06 15:19 | RAD REPORT ---
EXAMINATION: ONE VIEW CHEST XR CLINICAL INDICATION: CHEST PAIN TECHNIQUE: Frontal chest projection is submitted. Examination is limited by patient positioning and t echnique. COMPARISON: No prior exam. FINDINGS: The lungs are well inflated and clear. The heart is normal in size. No displaced fractures identified . Sternotomy. IMPRESSION: No acute intrathoracic abnormalities.
[2024-08-06 15:42] LABS: Absolute Basophils 0.1 K/uL (0-0.5); Absolute Eosinophils 0.6 K/uL (0-0.5); Absolute Lymphocytes (CBC) 1.1 K/uL (0.7-4.9); Absolute Monocytes 0.9 K/uL (0.1-1.3); Absolute Neutrophil 6.5 K/uL (1.8-8.0); Basophils % 1.3 % (0-1.3); Eosinophils % 6.4 % (0-4.4); Hematocrit 38.2 % (39.6-49.0); Lymphocytes % 11.4 % (15.3-44.8); MCH 29.1 pg (27.0-35.0); MCHC 34.1 g/dL (32.0-36.0); MCV 85.3 fL (80-100); MPV 8.4 fL (7.6-11.3); Monocytes % 10.3 % (3.3-12.3); Neutrophils % 70.6 % (41.7-73.7); Nucleated Red Blood Cells % 0.5 % (0-0); Platelets 189 thou/uL (152-406); RBC Red Blood Cell Count 4.48 M/uL (4.33-5.43); Red Cell Distribution Width 16.7 % (12.1-15.2)
[2024-08-06 15:44] LABS: Albumin 3.1 g/dL (3.4-5.0); Anion Gap 8.7 mEq/L (5.0-15.0); Bilirubin Direct 0.2 mg/dL (0-0.2); Bilirubin Indirect, Calculated 0.5 mg/dL (0.2-0.8); Bilirubin Total 0.7 mg/dL (0.2-1.0); Globulin 3.2 g/dL (2.3-3.5); Protein, Total 6.3 g/dL (6.4-8.2); Troponin High Sensitivity 5.3 pg/mL (<58.9)
--- NOTE | 2024-08-06 16:04 | RAD REPORT ---
EXAM: CT brain without contrast HISTORY: SEIZURE COMPARISON: 07/30/2024 TECHNIQUE: Multiple contiguous axial images were obtained and a CT of the brain without contrast. Sag ittal and coronal reformats were performed. One or more of the following dose reduction techniques were used: Automated exposure control, adjust ment of the mA and/or kV according to patient size, and/or iterative reconstruction. FINDINGS: No evidence of hydrocephalus, intracranial hemorrhage, or extra-axial fluid collection. Moderate brain atrophy with moderate periventricular and deep white matter chronic microvascular isc hemic changes present. There is a large area of gliosis left posterior frontal region. No evidence of midline shift or areas of brain edema. The calvarium is intact. The visualized paranasal sinuses and mastoid air cells are essentially clear . IMPRESSION: No evidence of acute intracranial abnormality.
[2024-08-06 16:10] LABS: Magnesium 2.2 mg/dL (1.6-2.4); Potassium 4.7 mEq/L (3.5-5.1)
[2024-08-06 16:21] LABS: Specific Gravity 1.012 (1.005-1.030); Urine Bilirubin NEGATIVE (Negative); Urine Blood Negative (Negative); Urine Clarity Clear (Clear); Urine Color Light-Yellow (Yellow); Urine Glucose 4+ (Negative); Urine Ketones NEGATIVE (Negative); Urine Microscopic Reflex YN NO UMIC; Urine Nitrite NEGATIVE (Negative); Urine Protein NEGATIVE (Negative); Urine Urobilinogen Normal (Normal); Urine pH 6.5 (5.0-7.0)
[2024-08-06 17:42] LABS: Blood Morphology Comment NOT SEEN (NOT SEEN); Platelet Estimate ADEQ; White Blood Cell Scan OK (OK)
--- NOTE | 2024-08-06 18:25 | EDPHYS ---
Physician Documentation [facility] Name: Donaldo English Age: 69 yrs Sex: Male : 1955 Arrival Date: 08/06/2024 Time: 14:25 Bed 14 Private MD: ED Physician Jac Ramos HPI: 08/06 14:45 This 69 yrs old Male presents to ER via EMS with complaints of Probable Seizure. cp 14:45 The patient presents with a history of multiple seizures, an unknown number, that last cp 15 minute(s). 14:45 Context: occurred shelter, Contributing factors: after becoming upset. Seizure Hx: cp Cause: previous CVA, Seizure medications: Keppra. Associated injury: The patient did not suffer any apparent associated injury. EMS care: none. Current symptoms: Currently, the patient is not experiencing any symptoms, the patient feels back to baseline. Historical: - Allergies: 14:41 No Known Allergies; kc6 - PMHx: 14:41 Cerebrovascular accident; coronary atherosclerosis; Dementia; depressive disorder; kc6 diabetes mellitus; Hemiplegia and hemiparesis; Hemiplegia and hemiparesis; Hypertensive disorder; Hypothyroidism; Right sided weakness; schizoaffective disorder; Seizure; Speech disturbances; - PSHx: 14:41 Unable to Obtain; kc6 - Immunization history:: Adult Immunizations up to date. - Infectious Disease History:: Denies. - Social history:: Smoking status: unknown. ROS: 14:50 Constitutional: Negative for body aches, chills, fever, poor PO intake, cp 14:50 Eyes: Negative for injury, pain, redness, and discharge, cp 14:50 ENT: Negative for drainage from ear(s), ear pain, sore throat, difficulty swallowing, difficulty handling secretions, 14:50 Cardiovascular: Negative for chest pain, 14:50 Respiratory: Negative for cough, shortness of breath, wheezing, 14:50 Abdomen/GI: Negative for abdominal pain, vomiting, diarrhea, constipation, 14:50 Neuro: Positive for history of seizure, Negative for altered mental status, headache, 14:50 All other systems are negative, Exam: 14:55 Constitutional: The patient appears in no acute distress, alert, awake, comfortable, cp non-diaphoretic, non-toxic, well developed, well nourished, 14:55 Head/Face: Normocephalic, atraumatic. cp 14:55 Eyes: Periorbital structures: appear normal, Pupils: equal, round, and reactive to light and accomodation, Conjunctiva: normal, Lids and lashes: appear normal, bilaterally, 14:55 ENT: External ear(s): are unremarkable, Nose: is normal, Mouth: Lips: moist, Oral mucosa: pink and intact, moist, Posterior pharynx: Airway: no evidence of obstruction, patent, 14:55 Chest/axilla: Inspection: normal, Palpation: is normal, no crepitus, no tenderness, 14:55 Cardiovascular: Rate: normal, Rhythm: regular, 14:55 Respiratory: the patient does not display signs of respiratory distress, Respirations: normal, no use of accessory muscles, no retractions, labored breathing, is not present, Breath sounds: are clear throughout, no decreased breath sounds, no stridor, no wheezing, 14:55 Abdomen/GI: Inspection: abdomen appears normal, Palpation: abdomen is soft and non-tender, in all quadrants, 14:55 Neuro: Orientation: no acute changes, per EMS, to person, Mentation: no acute changes, able to follow commands, Motor: no acute changes, 15:05 ECG was reviewed by the Attending Physician. cp Vital Signs: 14:40 BP 135 / 51; Pulse 60; Resp 16 S; Temp 98(O); Pulse Ox 100% on R/A; Pain 0/10; kc6 15:45 BP 146 / 57; Pulse 64; Resp 16 S; Pulse Ox 100% on R/A; kc6 16:54 BP 142 / 62; Pulse 63; Resp 16 S; Pulse Ox 100% on R/A; kc6 18:26 BP 155 / 68; Pulse 65; Resp 15 S; Pulse Ox 98% on R/A; kc6 19:41 BP 145 / 69; Pulse 67; Resp 16; Temp 98.3; Pulse Ox 98% ; dd2 14:40 Pain Scale: Adult kc6 [place] Coma Score: 14:43 Eye Response: spontaneous(4). Motor Response: obeys commands(6). Verbal Response: kc6 confused(4). Total: 14. MDM: 15:58 Medical Screening Exam initiated marian 17:00 Differential diagnosis: cerebral vascular accident, cardiac arrhythmia, seizure. 18:23 Data reviewed: vital signs, nurses notes, lab test result(s), radiologic studies, CT cp scan, plain films, and as a result, I will discharge patient. 18:23 Counseling: I had a detailed discussion with the patient and/or guardian regarding the cp historical points, exam findings, and any diagnostic results supporting the discharge/admit diagnosis, lab results, radiology results, to return to the emergency department if symptoms worsen or persist or if there are any questions or concerns that arise at home. 18:23 ED course: VSS. Patient observed in ED and no seizure activity observed. Will discharge cp to shelter for continued monitoring. 08/06 14:41 Order name: Basic Metabolic Panel; Complete Time: 17:01 08/06 17:01 Interpretation: Normal except: GLUC 224; GFR 72. 08/06 14:41 Order name: CBC with Diff; Complete Time: 18:22 08/06 17:02 Interpretation: Normal except: HGB 13.0; HCT 38.2; RDW 16.7; LYM% 11.4; EOSINOPHIL % cp 6.4; EOSA 0.6. 08/06 14:41 Order name: LFT's; Complete Time: 17:01 08/06 17:02 Interpretation: Normal except: ALT 15; TP 6.3; ALB 3.1; A/G 1.0. 08/06 14:41 Order name: Magnesium; Complete Time: 17:01 08/06 14:41 Order name: Troponin HS; Complete Time: 17: 08/06 17:02 Interpretation: Troponin HS 5.3; Reviewed. 08/06 14:41 Order name: Urinalysis w/ reflexes; Complete Time: 17:01 08/06 17:02 Interpretation: Normal except: UGLUC 4+. 08/06 17:42 Order name: CBC Smear Scan; Complete Time: 18:22 EDMS 08/06 14:41 Order name: XRAY Chest (1 view); Complete Time: 17:01 08/06 17:03 Interpretation: Report review. 08/06 14:41 Order name: CT Head Brain wo Cont; Complete Time: 17:01 08/06 17:03 Interpretation: Report reviewed. 08/06 14:41 Order name: Cardiac monitoring; Complete Time: 15:01 08/06 14:41 Order name: EKG - Nurse/Tech; Complete Time: 15:01 cp 08/06 14:41 Order name: IV Saline Lock; Complete Time: 14:49 cp 08/06 14:41 Order name: Labs collected and sent; Complete Time: 15:20 cp 08/06 14:41 Order name: O2 Per Protocol; Complete Time: 14:49 cp 08/06 14:41 Order name: O2 Sat Monitoring; Complete Time: 14:49 cp EC:05 Rate is 61 beats/min. Rhythm is regular. NH interval is normal. QRS interval is normal. cp QT interval is normal. Interpreted by me. Reviewed by me. Administered Medications: 18:59 Drug: Keppra PO 750 mg PO once Route: PO; kc6 Disposition Summary: 08/06/24 18:24 Discharge Ordered Notes: Location: Home cp Problem: an acute exacerbation cp Symptoms: have improved cp Condition: Stable cp Diagnosis - Other seizures cp Followup: cp - With: Private Physician - When: 2 - 3 days - Reason: Recheck today's complaints Discharge Instructions: - Discharge Summary Sheet cp - Seizure, Adult cp Forms: - Medication Reconciliation Form cp - Antibiotic Education cp - Prescription Opioid Use cp - Patient Portal Instructions cp - Leadership Thank You Letter cp Signatures: Dispatcher [employer] EDMS Jac Ramos MD MD cha Page, Corey, PA PA cp Abbi Iraheta RN RN kc6 Corrections: (The following items were deleted from the chart) 14:42 14:42 Chest Single View+RAD.RAD.BRZ ordered. EDMS EDMS 14:42 14:42 Head Brain Wo Cont+CT.RAD.BRZ ordered. EDMS EDMS 14:42 14:42 Urinalysis+U.LAB.BRZ ordered. EDMS EDMS
--- NOTE | 2024-08-06 18:25 | ER ---
Nurse's Notes [facility] Name: Donaldo English Age: 69 yrs Sex: Male : 1955 Arrival Date: 08/06/2024 Time: 14:25 Bed 14 Private MD: Diagnosis: Other seizures Presentation: 08/06 14:40 Chief complaint: EMS states: they were toned out to [place] for "15min worth of kc6 stress induced seizures" produced by talking with family members about going home. upon EMS arrival pt was awake and alert and reports headache. Coronavirus screen: At this time, the client does not indicate any symptoms associated with coronavirus-19. Ebola Screen: No symptoms or risks identified at this time. Initial Sepsis Screen: Does the patient meet any 2 criteria? Altered Mental Status. Does the patient have a suspected source of infection? No. Patient's initial sepsis screen is negative. Risk Assessment: Do you want to hurt yourself or someone else? Patient reports no desire to harm self or others. Onset of symptoms was August 06, 2024. Care prior to arrival: IV initiated. 22 GA, in the left hand. 14:40 Method Of Arrival: EMS: [facility] kc6 14:40 Acuity: LILIANA 3 kc6 Historical: - Allergies: 14:41 No Known Allergies; kc6 - PMHx: 14:41 Cerebrovascular accident; coronary atherosclerosis; Dementia; depressive disorder; kc6 diabetes mellitus; Hemiplegia and hemiparesis; Hemiplegia and hemiparesis; Hypertensive disorder; Hypothyroidism; Right sided weakness; schizoaffective disorder; Seizure; Speech disturbances; - PSHx: 14:41 Unable to Obtain; kc6 - Immunization history:: Adult Immunizations up to date. - Infectious Disease History:: Denies. - Social history:: Smoking status: unknown. Screenin:42 [facility] ED Fall Risk Assessment (Adult) History of falling in the last 3 months, kc6 including since admission No falls in past 3 months (0 pts) Confusion or Disorientation Yes (5 pts) Intoxicated or Sedated Yes (3 pts) Impaired Gait Yes (1 pt) Mobility Assist Device Used Yes (1 pt) Altered Elimination No (0 pt) Score/Fall Risk Level 3 or more points = High Risk Oriented to surroundings, Maintained a safe environment, Educated pt \\T\\ family on fall prevention, incl call for assistance when getting out of bed. Abuse screen: Denies threats or abuse. Denies injuries from another. Nutritional screening: No deficits noted. Tuberculosis screening: No symptoms or risk factors identified. Assessment: 14:43 General: Appears in no apparent distress. comfortable, well groomed, well developed, kc6 Behavior is calm, cooperative, appropriate for age. Pain: Denies pain. Neuro: Level of Consciousness is awake, alert, obeys commands, confused, Oriented to person, place, Appropriate for age Seizure activity reported prior to arrival. Cardiovascular: Capillary refill < 3 seconds. Respiratory: Airway is patent Trachea midline Respiratory effort is even, unlabored, Respiratory pattern is regular, symmetrical. GI: No signs and/or symptoms were reported involving the gastrointestinal system. : No signs and/or symptoms were reported regarding the genitourinary system. EENT: No signs and/or symptoms were reported regarding the EENT system. Derm: No signs and/or symptoms reported regarding the dermatologic system. Skin is intact, is healthy with good turgor, Skin is pink, warm \\T\\ dry. Musculoskeletal: No signs and/or symptoms reported regarding the musculoskeletal system. Circulation, motion, and sensation intact. Capillary refill < 3 seconds, Range of motion: intact in all extremities. 15:45 Reassessment: Patient appears in no apparent distress at this time. No changes from [facility] previously documented assessment. Patient and/or family updated on plan of care and expected duration. Pain level reassessed. 16:54 Reassessment: Patient appears in no apparent distress at this time. No changes from [facility] previously documented assessment. Patient and/or family updated on plan of care and expected duration. Pain level reassessed. 17:55 Reassessment: Patient appears in no apparent distress at this time. No changes from [facility] previously documented assessment. Patient and/or family updated on plan of care and expected duration. Pain level reassessed. 18:26 Reassessment: Patient appears in no apparent distress at this time. No changes from [facility] previously documented assessment. Patient and/or family updated on plan of care and expected duration. Pain level reassessed. 18:59 Reassessment: d/c pending transport back to [place]. nurse to nurse report given to kc HIEN Salgado. she will arrange transport with [facility]. Vital Signs: 14:40 BP 135 / 51; Pulse 60; Resp 16 S; Temp 98(O); Pulse Ox 100% on R/A; Pain 0/10; kc6 15:45 BP 146 / 57; Pulse 64; Resp 16 S; Pulse Ox 100% on R/A; kc6 16:54 BP 142 / 62; Pulse 63; Resp 16 S; Pulse Ox 100% on R/A; kc6 18:26 BP 155 / 68; Pulse 65; Resp 15 S; Pulse Ox 98% on R/A; kc6 19:41 BP 145 / 69; Pulse 67; Resp 16; Temp 98.3; Pulse Ox 98% ; dd2 14:40 Pain Scale: Adult kc6 [place] Coma Score: 14:43 Eye Response: spontaneous(4). Motor Response: obeys commands(6). Verbal Response: kc6 confused(4). Total: 14. ED Course: 14:37 Patient arrived in ED. kc6 14:40 Jac Tello PA is PHCP. cp 14:40 Jac Ramos MD is Attending Physician. cp 14:41 Triage completed. kc6 14:41 Arm band placed on. kc6 14:42 Patient has correct armband on for positive identification. Bed in low position. Call kc6 light in reach. Side rails up X2. Pulse ox on. NIBP on. Door closed. Noise minimized. Lights dimmed. Warm blanket given. Pillow given. 14:42 Maintain EMS IV. Dressing intact. Good blood return noted. Site clean \\T\\ dry. Gauge \\T\\ katty 6 site: 20G LHAND. Flushed with 10 mL NS. Patient maintains SpO2 saturation greater than 95% on room air. 14:43 Seizure precautions initiated. kc6 14:44 Abbi Iraheta, RN is Primary Nurse. kc6 15:00 Assisted with urinal. Repositioned patient. kc6 15:15 XRAY Chest (1 view) In Process Unspecified. EDMS 15:57 CT Head Brain wo Cont In Process Unspecified. EDMS 19:00 Diet: Patient given snack. Tolerated well. kc6 19:41 Provided Education on: D/C INSTRUCTIONS. dd2 19:41 No provider procedures requiring assistance completed. IV discontinued, intact, dd2 bleeding controlled, No redness/swelling at site. Pressure dressing applied. Administered Medications: 18:59 Drug: Keppra PO 750 mg PO once Route: PO; kc6 Medication: 19:41 VIS not applicable for this client. dd2 Outcome: 18:24 Discharge ordered by MD. fisher 19:41 Discharged to long term. Report called to [facility]EN SANDERS dd2 19:41 Condition: stable 19:41 Discharge instructions given to family, long term, 19:43 Patient left the ED. dd2 Signatures: Dispatcher [employer] EDMS Jac Tello PA PA cp Campbell, Kaitlyn, RN RN kc6 LATESHA JOHNSON RN RN dd2
[2024-08-06] MEDS ORDERED: levETIRAcetam 500 MG TAB ONE (18:42)
[2024-08-06 22:13] VITALS: O2SAT 98
[2024-08-06 22:14] VITALS: BP 145/69; TEMP 98.3
--- NOTE | 2024-08-10 12:08 | EKG ---
Test Date: 2024-08-06 Test Time: 14:59:16 Felt Hooker: MARY MEASUREMENT RESULTS: Intervals: Rate: 61 MN: 166 QRSD: 80 QT: 436 QTc: 438 [place]: P: 43 MN: 166 QRS: 54 T: 16 INTERPRETIVE STATEMENTS: Normal sinus rhythm Cannot rule out Anterior infarct, age undetermined Abnormal ECG Compared to ECG 07/31/2024 17:30:58 No significant changes Electronically Signed On 08-10-24 12:03:12 RING MAKER by Faustino Hernández
== END 2024-08-06 19:43 | disposition home or self-care (01) ==
LOC: ER 14:25
DX: G40.89 Other seizures (principal); E11.9 Type 2 diabetes mellitus without complications; I10 Essential (primary) hypertension
CPT/HCPCS: 36415; 70450; 71045; 80048; 80076; 81003; 83735; 84484; 85025; 93005; 99284

== ENCOUNTER 2024-08-17 08:14 | Emergency (ER) | payer OTHER ==
--- NOTE | 2024-08-17 08:29 | EDPHYS ---
Physician Documentation [facility] Name: Donaldo English Age: 69 yrs Sex: Male : 1955 Arrival Date: 08/17/2024 Time: 08:14 Bed 4 Private MD: ED Physician Hollis Lockhart HPI: 08/17 08:28 This 69 yrs old Male presents to ER via EMS with complaints of POSSIBLE FALL. ms3 08:32 Donaldo English, a 69-year-old male, presents to the emergency department following a ms3 fall, transported by [facility]. He reports tripping but denies any injuries, pain, or loss of consciousness. He does not report hitting his head and is not experiencing any pain in his arms, legs, head, or back. Mr. English declines the need for a CT scan of the head and neck and expresses a preference to be discharged.. Historical: - Allergies: 08:22 No Known Allergies; bp - PMHx: 08:22 Cerebrovascular accident; coronary atherosclerosis; Dementia; depressive disorder; bp diabetes mellitus; Hypertensive disorder; Hemiplegia and hemiparesis; Right sided weakness; Seizure; Speech disturbances; schizoaffective disorder; Hypothyroidism; - Immunization history:: Adult Immunizations up to date. - Infectious Disease History:: Denies. - Social history:: Smoking status: Patient denies any tobacco usage or history of. ROS: 08:32 Constitutional: Negative for fever, and chills. Cardiovascular: Negative for chest ms3 pain, and palpitations. Respiratory: Negative for shortness of breath, cough, wheezing, and pleuritic chest pain, Abdomen/GI: Negative for abdominal pain, nausea, vomiting, diarrhea, and constipation, Skin: Negative for injury, rash, and discoloration, Exam: 08:32 Constitutional: This is a well developed, well nourished patient who is awake, alert, ms3 and in no acute distress. Head/Face: Normocephalic, atraumatic. Chest/axilla: Normal chest wall appearance and motion. Nontender with no deformity. Cardiovascular: Regular rate and rhythm with a normal S1 and S2. No gallops, murmurs, or rubs. Normal PMI, no JVD. No pulse deficits. Respiratory: Lungs have equal breath sounds bilaterally, clear to auscultation and percussion. No rales, rhonchi or wheezes noted. No increased work of breathing, no retractions or nasal flaring. Abdomen/GI: Soft, non-tender, with normal bowel sounds. No distension or tympany. No guarding or rebound. No evidence of tenderness throughout. Skin: Warm, dry with normal turgor. Normal color with no rashes, no lesions, and no evidence of cellulitis. Vital Signs: 08:21 BP 122 / 60; Pulse 63; Resp 16; Temp 98; Pulse Ox 100% ; bp MDM: 08:22 Medical Screening Exam initiated ms3 08:32 Differential diagnosis: abrasion, contusion, sprain, strain. Data reviewed: vital ms3 signs, nurses notes, and as a result, I will discharge patient. Historians other than the Patient: EMS: [facility]. Counseling: I had a detailed discussion with the patient and/or guardian regarding the historical points, exam findings, and any diagnostic results supporting the discharge/admit diagnosis, the need for outpatient follow up, to return to the emergency department if symptoms worsen or persist or if there are any questions or concerns that arise at home. Special discussion: I discussed with the patient/guardian in detail that at this point there is no indication for admission to the hospital. It is understood, however, that if the symptoms persist or worsen the patient needs to return immediately for re-evaluation. ED course: On exam patient is without pain or signs of trauma. No midline neck tenderness, no midline back tenderness. No pain with movement. Patient to follow-up with primary care physician in 2 to 3 days. All questions were answered. Return precautions discussed include worsening symptoms, or any other concerns.. Administered Medications: No medications were administered Disposition Summary: 08/17/24 08:28 Discharge Ordered Notes: Location: Home ms3 Condition: Stable ms3 Diagnosis - Fall on same level, unspecified ms3 Followup: ms3 - With: Private Physician - When: 2 - 3 days - Reason: Discharge Instructions: - Discharge Summary Sheet ms3 - Fall Prevention in the Home, Adult ms3 Forms: - Medication Reconciliation Form ms3 - Antibiotic Education ms3 - Prescription Opioid Use ms3 - Patient Portal Instructions ms3 - Leadership Thank You Letter ms3 Signatures: Dispatcher [facility] Man Ribeiro RN RN bp Lockhart, Hollis, DO DO ms3 Corrections: (The following items were deleted from the chart) 08:24 08:22 PMHx: Hemiplegia and hemiparesis; bp bp 08:24 08:22 PMHx: Hemiplegia and hemiparesis; bp bp 08:37 08:23 Head C Spine MPR Wo Con+CT.RAD.BRZ ordered. EDMS EDMS
--- NOTE | 2024-08-17 08:29 | ER ---
Nurse's Notes [facility] Name: Donaldo English Age: 69 yrs Sex: Male : 1955 Arrival Date: 08/17/2024 Time: 08:14 Bed 4 Private MD: Diagnosis: Fall on same level, unspecified Presentation: 08/17 08:21 Chief complaint: EMS states: FOUND SITTING ON GROUND BY SENIOR LIVING STAFF. PT HAS NO bp COMPLAINTS. Coronavirus screen: At this time, the client does not indicate any symptoms associated with coronavirus-19. Ebola Screen: No symptoms or risks identified at this time. Initial Sepsis Screen: Does the patient meet any 2 criteria? No. Patient's initial sepsis screen is negative. Does the patient have a suspected source of infection? No. Patient's initial sepsis screen is negative. Risk Assessment: Do you want to hurt yourself or someone else? Patient reports no desire to harm self or others. Onset of symptoms is unknown. Care prior to arrival: Glucose check: 75. 08:21 Method Of Arrival: EMS: [facility] bp 08:21 Acuity: LILIANA 4 bp Triage Assessment: 08:22 General: Appears in no apparent distress. comfortable, Behavior is calm, cooperative. bp Pain: Denies pain. EENT: No deficits noted. Neuro: Level of Consciousness is obeys commands, confused, Oriented to person, place. Cardiovascular: No deficits noted. Respiratory: No deficits noted. GI: No signs and/or symptoms were reported involving the gastrointestinal system. : No signs and/or symptoms were reported regarding the genitourinary system. Derm: No deficits noted. Musculoskeletal: No deficits noted. Historical: - Allergies: 08:22 No Known Allergies; bp - PMHx: 08:22 Cerebrovascular accident; coronary atherosclerosis; Dementia; depressive disorder; bp diabetes mellitus; Hypertensive disorder; Hemiplegia and hemiparesis; Right sided weakness; Seizure; Speech disturbances; schizoaffective disorder; Hypothyroidism; - Immunization history:: Adult Immunizations up to date. - Infectious Disease History:: Denies. - Social history:: Smoking status: Patient denies any tobacco usage or history of. Screenin:25 [facility] ED Fall Risk Assessment (Adult) History of falling in the last 3 months, bp including since admission Yes- physiologic fall (2 pts) Confusion or Disorientation Yes (5 pts) Intoxicated or Sedated No (0 pts) Impaired Gait No (0 pts) Mobility Assist Device Used No (0 pt) Altered Elimination No (0 pt) Score/Fall Risk Level 3 or more points = High Risk Oriented to surroundings. Abuse screen: Denies threats or abuse. Denies injuries from another. Nutritional screening: No deficits noted. Tuberculosis screening: No symptoms or risk factors identified. Assessment: 08:25 General: Appears in no apparent distress. Behavior is calm, cooperative. bp 09:06 Reassessment: REPORT TO [facility]. TRANSPORT PENDING. bp Vital Signs: 08: BP 122 / 60; Pulse 63; Resp 16; Temp 98; Pulse Ox 100% ; bp ED Course: 08: Patient arrived in ED. bp 08:22 Hollis Lockhart DO is Attending Physician. ms3 08: Triage completed. bp 08:22 Arm band placed on. bp 08:25 Patient has correct armband on for positive identification. bp 09:06 Man Farrar, RN is Primary Nurse. bp 09:06 Provided Education on: N/A. bp 09:06 No provider procedures requiring assistance completed. Patient did not have IV access bp during this emergency room visit. Administered Medications: No medications were administered Medication: 08:25 VIS not applicable for this client. bp Outcome: 08:28 Discharge ordered by . ms3 09:06 Discharged to [facility]. Report called to [facility] bp 09:06 Condition: stable 09:06 Discharge instructions given to [facility], Instructed on discharge instructions, follow up and referral plans. Demonstrated understanding of instructions, follow-up care, 11:07 Patient left the ED. hb Signatures: Temi Crespo RN RN Man Blanca, RN RN bp Hollis Lockhart DO DO ms3 Corrections: (The following items were deleted from the chart) 08:24 08:22 PMHx: Hemiplegia and hemiparesis; bp bp 08:24 08:22 PMHx: Hemiplegia and hemiparesis; bp bp
[2024-08-17 12:03] VITALS: BP 122/60; TEMP 98; O2SAT 100
== END 2024-08-17 11:07 | disposition home or self-care (01) ==
LOC: ER 08:14
DX: Z04.3 Encounter for examination and observation following other accident (principal); W18.30XA Fall on same level, unspecified, initial encounter
CPT/HCPCS: 99283

== ENCOUNTER 2024-09-06 00:03 | Emergency (ER) | payer OTHER ==
--- NOTE | 2024-09-06 02:01 | RAD REPORT ---
PROCEDURE: CT Head Without Intravenous Contrast CLINICAL INDICATION: The patient is 69 years old and is Male; Trauma. TECHNIQUE: Axial computed tomography images of the head/brain without intravenous contrast. Sagittal and coron al reformatted images were created and reviewed. This CT exam was performed using one or more of the following dose reduction techniques: automated exposure control, adjustment of the mA and/or kV according to patient size, and/or use of iterative reconstruction technique. COMPARISON: CT Head 08/06/2024. FINDINGS: BRAIN: Remote large left posterior parietal and small left parafalcine frontal cortical infarctions with associated encephalomalacia, as well as tiny right frontal cortical infarct, unchanged from prior exam. Mild global cerebral atrophy with commensurate sulcal and ventricular enlargement, not greate r than expected for patient age. Mild bilateral periventricular and deep white matter microangiopathy changes. No extra-axial fluid collection. No intracranial hemorrhage. No transtentorial herniation. No focal zazueta-white matter differentiation abnormality. MIDLINE SHIFT: No midline shift. VENTRICLES: See above. BONES/JOINTS: Diminutive appearance of the visualized vertebral basilar system incidentally noted. No fracture of the calvarium or visualized facial bones. SOFT TISSUES: Unremarkable SINUSES: No masses, bony erosion or evidence of acute sinusitis. MASTOID AIR CELLS: Unremarkable as visualized. No mastoid effusion. AUDITORY SYSTEM: Focus of debris within the central right external auditory canal, favoring cerumen globule. IMPRESSION: 1. Chronic and senescent changes with no acute intracranial abnormality. 2. Focus of debris within the central right external auditory canal, favoring cerumen globule. Scottie mmend visualization recommended. Electronically signed by: Lane Rios MD 09/06/2024 01:56 AM [facility] Due to temporary technical issues with the PACS/[employer] reporting system, reports are being johanna d by the in-house radiologist without review as a courtesy to ensure prompt reporting the interpreting radiologist is fully responsible for the content of the report. Transcribed Date/Time: 09/06/2024 2:00 AM
--- NOTE | 2024-09-06 02:47 | ER ---
Nurse's Notes [facility] Name: Donaldo English Age: 69 yrs Sex: Male : 1955 Arrival Date: 09/06/2024 Time: 00:03 Bed 20 Private MD: Diagnosis: Fall on same level, unspecified;Repeated falls;Unspecified injury of head, initial encounter Presentation: 09/06 00:05 Chief complaint: EMS states: toned out for witnessed fall, hit back of head on the wall me1 and hit his back on the edge of the bed. c/o headache for EMS. Denied RAMEY on arrival. Patient has R sided deficits and slurred speech at baseline. BGL 207. Onset of symptoms was September 05, 2024. 00:05 Method Of Arrival: EMS: [facility] id1 02:15 Coronavirus screen: Client denies travel out of the [place] in the last 14 days. Ebola kj2 Screen: No symptoms or risks identified at this time. Initial Sepsis Screen: Does the patient meet any 2 criteria? No. Patient's initial sepsis screen is negative. Does the patient have a suspected source of infection? No. Patient's initial sepsis screen is negative. Risk Assessment: Do you want to hurt yourself or someone else? Patient reports no desire to harm self or others. 02:15 Acuity: LILIANA 3 kj2 Historical: - Allergies: 00:07 No Known Allergies; me1 - PMHx: 00:07 Cerebrovascular accident; coronary atherosclerosis; Dementia; depressive disorder; me1 diabetes mellitus; Hemiplegia and hemiparesis; Hypertensive disorder; Hypothyroidism; Right sided weakness; Seizure; schizoaffective disorder; Speech disturbances; - Immunization history:: Adult Immunizations up to date. - Infectious Disease History:: Denies. - Immunization history: Last tetanus immunization: - up to date. - Social history:: Smoking status: unknown. Screenin:18 Abuse screen: Denies threats or abuse. Nutritional screening: No deficits noted. cp4 Tuberculosis screening: No symptoms or risk factors identified. 00:20 [facility] ED Fall Risk Assessment (Adult) History of falling in the last 3 months, cp4 including since admission Yes- single mechanical fall (1 pt) Confusion or Disorientation Yes (5 pts) Intoxicated or Sedated No (0 pts) Impaired Gait Yes (1 pt) Mobility Assist Device Used Yes (1 pt) Altered Elimination No (0 pt) Score/Fall Risk Level 3 or more points = High Risk Oriented to surroundings, Maintained a safe environment, Assessed \T\ reinforced patient's understanding of fall precautions, Hourly rounding (assess needs \T\ fall precautionary measures) done, Used ambulatory aids as needed (educated on \T\ assisted with), Implemented a Fall Risk Plan of Care. Primary Survey: 00:18 NO uncontrolled hemorrhage observed. Breathing/Chest: Spontaneous respiratory effort, cp4 equal unlabored respirations, breath sounds clear bilaterally, regular pattern, symmetrical chest rise and fall. Circulation: No external hemorrhage present. Regular and strong central pulse, skin warm/dry/normal color. Disability Pupils are equal, round, reactive to light and accommodation. Client is alert. Exposure/Environment: A warming method has been applied: A warm blanket has been provided to the patient. Reassessment Alertness and Airway: Awake and alert. The airway is patent. Breathing: Spontaneous respiratory effort, equal unlabored respirations, breath sounds clear bilaterally, regular pattern with symmetrical chest rise and fall. Circulation: No external hemorrhage noted. Regular and strong central pulse, skin warm/dry/normal color. Disability: Pupils Pupils are equal, round, reactive to light and accomodation. Alert. Assessment: 00:18 General: Appears in no apparent distress. comfortable, Behavior is calm, cooperative, cp4 appropriate for age. Pain: Denies pain. Neuro: Level of Consciousness is awake, alert, obeys commands, Oriented to person. EENT: No signs and/or symptoms were reported regarding the EENT system. Cardiovascular: Patient's skin is warm and dry. Respiratory: Airway is patent Respiratory effort is even, unlabored. GI: No signs and/or symptoms were reported involving the gastrointestinal system. : No signs and/or symptoms were reported regarding the genitourinary system. Derm: No signs and/or symptoms reported regarding the dermatologic system. Musculoskeletal: No signs and/or symptoms reported regarding the musculoskeletal system. Injury Description: Head injury sustained to scalp did not have loss of consciousness, was sustained 30-60 minutes ago. 00:20 Reassessment: No changes from previously documented assessment. cp4 02:15 Reassessment: Patient appears in no apparent distress at this time. Patient and/or kj2 family updated on plan of care and expected duration. Pain level reassessed. Patient is alert, oriented x 3, equal unlabored respirations, skin warm/dry/pink. 02:56 Reassessment: Patient appears in no apparent distress at this time. Patient and/or kj2 family updated on plan of care and expected duration. Pain level reassessed. Patient is alert, oriented x 3, equal unlabored respirations, skin warm/dry/pink. 03:08 Reassessment: Reassessment: Patient appears in no apparent distress at this time. kj2 Patient and/or family updated on plan of care and expected duration. Pain level reassessed. Patient is alert, oriented x 3, equal unlabored respirations, skin warm/dry/pink. 03:15 Reassessment: RN attempted to call [facility] to give nurse to nurse report and also to [facility] arrange transportation. 03:43 Reassessment: Multiple phone calls made to [facility] with no answer. [facility] 03:58 Reassessment: RN, ED staff and family at bedside continue to call [place] [id number] facility, no answer at this time. 04:08 Reassessment: report given to Yumiko sheth nurse at [facility] who said she will relay the kj2 message to Derrek, the patient's nurse, and they will call us back with an ETA for transportation. 04:14 Reassessment: Spoke to Derrek at [facility] and will call back with an ETA for [place] [id number] [facility]. 04:15 Reassessment: [facility] ETA 30 minutes. 4 05:14 Reassessment: Patient appears in no apparent distress at this time. Patient and/or kj2 family updated on plan of care and expected duration. Pain level reassessed. Patient is alert, oriented x 3, equal unlabored respirations, skin warm/dry/pink. Vital Signs: 00:08 BP 122 / 71; Pulse 81; Resp 17; Temp 98.2; Pulse Ox 100% ; Weight 89.81 kg; Height 5 me1 ft. 8 in. ; Pain 0/10; 01:59 BP 113 / 68; Pulse 79; Resp 18; Pulse Ox 100% ; cp4 03:00 BP 121 / 58; Pulse 83; Resp 18; Pulse Ox 100% on R/A; kj2 04:00 BP 122 / 58; Pulse 80; Pulse Ox 100% on R/A; kj2 05:18 BP 121 / 62; Pulse 78; Resp 18; Pulse Ox 100% on R/A; kj2 00:08 Body Mass Index 30.11 (89.81 kg, 172.72 cm) me1 00:08 Pain Scale: Adult me1 [place] Coma Score: 00:18 Eye Response: spontaneous(4). Motor Response: obeys commands(6). Verbal Response: cp4 oriented(5). Total: 15. 02:43 Eye Response: spontaneous(4). Motor Response: obeys commands(6). Verbal Response: bo1 oriented(5). Total: 15. Trauma Score (Adult): 00:18 Eye Response: spontaneous(1); Verbal Response: oriented(1); Motor Response: obeys cp4 commands(2); Systolic BP: > 89 mm Hg(4); Respiratory Rate: 10 to 29 per min(4); Nickolas Score: 15; Trauma Score: 12 ED Course: 00:05 Patient arrived in ED. me1 00:08 Arm band placed on Patient placed in an exam room. me1 00:14 Amilcar Webster MD is Attending Physician. bo1 00:18 Genia Posadas is Primary Nurse. cp4 00:18 Bed in low position. Call light in reach. Side rails up X2. cp4 00:18 Patient maintains SpO2 saturation greater than 95% on room air. cp4 00:20 No provider procedures requiring assistance completed. Patient did not have IV access cp4 during this emergency room visit. 01:04 CT Head Brain wo Cont In Process Unspecified. EDMS 02:15 Provided Education on: on use of call light to family at beside. Report received from dominic Waddell RN. 02:36 Pillow given. kj2 03:20 Triage completed. kj2 Administered Medications: No medications were administered Medication: 00:20 VIS not applicable for this client. cp4 Intake: 00:18 PO: 0ml; Total: 0ml. cp4 Outcome: 02:47 Discharge ordered by . bo1 03:28 Condition: stable kj2 05:22 Discharged to senior care. Report called to HIEN Calderon kj2 05:22 Discharge instructions given to patient, Instructed on discharge instructions, follow up and referral plans. Demonstrated understanding of instructions, follow-up care, 05:23 Patient left the ED. kj2 Signatures: Dispatcher [employer] EDMS Eddleman, Chio, RN RN me1 Genia Posadas cp4 Amilcar Webstre MD MD bo1 Savi Kirby RN RN kj2 Corrections: (The following items were deleted from the chart) 00:08 00:07 PMHx: Hemiplegia and hemiparesis; me1 me1 00:08 00:07 PMHx: Hemiplegia and hemiparesis; me1 me1 00:08 00:07 PMHx: Hemiplegia and hemiparesis; me1 me1 00:08 00:07 PMHx: Hemiplegia and hemiparesis; me1 me1 00:08 00:07 PMHx: Hemiplegia and hemiparesis; me1 me1 00:08 00:07 PMHx: Hemiplegia and hemiparesis; me1 me1 00:08 00:07 PMHx: Hemiplegia and hemiparesis; me1 me1 00:08 00:07 PMHx: Hemiplegia and hemiparesis; id1 me1 03:26 03:08 Reassessment: dominic kj2
--- NOTE | 2024-09-06 02:47 | EDPHYS ---
Physician Documentation [facility] Name: Donaldo English Age: 69 yrs Sex: Male : 1955 Arrival Date: 09/06/2024 Time: 00:03 Bed 20 Private MD: ED Physician Amilcar Webster HPI: 09/06 00:24 This 69 yrs old Male presents to ER via EMS with complaints of Fall Injury. bo1 00:24 Details of fall: The patient fell from a height, Pt in the NH, slid down from bed and bo1 hit head. Onset: The symptoms/episode began/occurred just prior to arrival. Associated injuries: The patient sustained injury to the head. Severity of symptoms: At their worst the symptoms were very mild, Pt at baseline w/o change in MS. No LOC. Historical: - Allergies: 00:07 No Known Allergies; me1 - PMHx: 00:07 Cerebrovascular accident; coronary atherosclerosis; Dementia; depressive disorder; me1 diabetes mellitus; Hemiplegia and hemiparesis; Hypertensive disorder; Hypothyroidism; Right sided weakness; Seizure; schizoaffective disorder; Speech disturbances; - Immunization history:: Adult Immunizations up to date. - Infectious Disease History:: Denies. - Immunization history: Last tetanus immunization: - up to date. - Social history:: Smoking status: unknown. ROS: 02:42 Constitutional: Negative for fever, chills, and weight loss bo1 02:42 Eyes: Negative for blurry vision, 02:42 Neck: Negative for pain with movement, pain at rest, 02:42 Cardiovascular: Negative for chest pain, 02:42 Respiratory: Negative for shortness of breath, 02:42 MS/extremity: Negative for injury or acute deformity, pain, 02:42 Neuro: Negative for headache, 02:42 All other systems are negative, Exam: 02:43 Constitutional: This is a well developed, well nourished patient who is awake, alert, bo1 and in no acute distress. 02:43 Constitutional: The patient appears alert, awake, comfortable, Elderly 02:43 Head/face: Exam is negative for penaloza signs, ecchymosis, laceration(s), raccoon eyes, 02:43 Eyes: Exam is negative for acute changes, 02:43 Neck: Exam negative for acute changes, pain w/ palpation, External neck: is normal, no acute changes, ROM/movement: is normal, no acute changes, 02:43 Cardiovascular: Rate: normal, Rhythm: regular, 02:43 Respiratory: the patient does not display signs of respiratory distress, Breath sounds: are clear throughout, 02:43 Musculoskeletal/extremity: Extremities: all appear grossly normal, with no appreciated pain with palpation, 02:43 Skin: no rash present. 02:43 Neuro: No AMS, pt at baseline state, Vital Signs: 00:08 BP 122 / 71; Pulse 81; Resp 17; Temp 98.2; Pulse Ox 100% ; Weight 89.81 kg; Height 5 me1 ft. 8 in. ; Pain 0/10; 01:59 BP 113 / 68; Pulse 79; Resp 18; Pulse Ox 100% ; cp4 03:00 BP 121 / 58; Pulse 83; Resp 18; Pulse Ox 100% on R/A; kj2 04:00 BP 122 / 58; Pulse 80; Pulse Ox 100% on R/A; kj2 05:18 BP 121 / 62; Pulse 78; Resp 18; Pulse Ox 100% on R/A; kj2 00:08 Body Mass Index 30.11 (89.81 kg, 172.72 cm) me1 00:08 Pain Scale: Adult me1 [place] Coma Score: 00:18 Eye Response: spontaneous(4). Motor Response: obeys commands(6). Verbal Response: cp4 oriented(5). Total: 15. 02:43 Eye Response: spontaneous(4). Motor Response: obeys commands(6). Verbal Response: bo1 oriented(5). Total: 15. Trauma Score (Adult): 00:18 Eye Response: spontaneous(1); Verbal Response: oriented(1); Motor Response: obeys cp4 commands(2); Systolic BP: > 89 mm Hg(4); Respiratory Rate: 10 to 29 per min(4); [place] Score: 15; Trauma Score: 12 MDM: 00:14 Medical Screening Exam initiated bo1 02:45 Differential diagnosis: closed head injury, Fall, hx of same. Data reviewed: vital bo1 signs, radiologic studies, CT scan. ED course: No indication for obs, admit. 09/06 00:15 Order name: CT Head Brain wo Cont bo1 Administered Medications: No medications were administered Disposition Summary: 09/06/24 02:47 Discharge Ordered Notes: Location: [facility] bo1 Problem: chronic bo1 Symptoms: are resolved bo1 Condition: Stable bo1 Diagnosis - Fall on same level, unspecified bo1 - Repeated falls bo1 - Unspecified injury of head, initial encounter bo1 Followup: bo1 - With: Private Physician - When: Upon discharge from the Emergency Department - Reason: Recheck today's complaints, Continuance of care Discharge Instructions: - Discharge Summary Sheet bo1 - Head Injury, Adult bo1 Forms: - Medication Reconciliation Form bo1 - Antibiotic Education bo1 - Prescription Opioid Use bo1 - Patient Portal Instructions bo1 - Leadership Thank You Letter bo1 Signatures: Dispatcher [employer] Chio Maynard RN RN me1 Genia Posadas cp4 Amilcar Webster MD MD bo1 Corrections: (The following items were deleted from the chart) 00:08 00:07 PMHx: Hemiplegia and hemiparesis; me1 me1 00:08 00:07 PMHx: Hemiplegia and hemiparesis; va1 me1 00:08 00:07 PMHx: Hemiplegia and hemiparesis; me1 me1 00:08 00:07 PMHx: Hemiplegia and hemiparesis; me1 me1 00:08 00:07 PMHx: Hemiplegia and hemiparesis; me1 me1 00:08 00:07 PMHx: Hemiplegia and hemiparesis; me1 me1 00:08 00:07 PMHx: Hemiplegia and hemiparesis; me1 me1 00:08 00:07 PMHx: Hemiplegia and hemiparesis; va1 me1 00:15 00:15 Head Brain Wo Cont+CT.RAD.BRZ ordered. EDMS EDMS
[2024-09-06 05:29] VITALS: TEMP 98.2; O2SAT 100
[2024-09-06 05:33] VITALS: BP 121/62
== END 2024-09-06 05:23 ==
LOC: ER 00:03
DX: S09.90XA Unspecified injury of head, initial encounter (principal); W18.30XA Fall on same level, unspecified, initial encounter; R29.6 Repeated falls
CPT/HCPCS: 70450; 99283

== ENCOUNTER 2024-09-09 04:51 | Emergency (ER) | payer OTHER ==
--- NOTE | 2024-09-09 06:17 | RAD REPORT ---
PROCEDURE: CT HEAD AND CERVICAL SPINE WITHOUT CONTRAST TECHNIQUE: Computerized tomography of the head and CT cervical spine was performed without contrast material. This exam was performed according to our department optimization program which includes automated exposure control, adjustment of the mA and/or kV according to patient size, and/or use of i terative reconstruction technique. HISTORY: Pain after fall COMPARISONS: CT head 09/06/2024. CT C-spine 07/14/2024. FINDINGS: CT head: Skull and scalp: Normal. Paranasal sinuses: Normal. Ventricles and subarachnoid spaces: Normal. Cerebrum: No evidence of hemorrhage, acute infarction or mass. Left parietal encephalomalacia is ag ain seen. Diffuse chronic microvascular ischemic changes and involutional changes are again seen. Cerebellum and brainstem: No evidence of hemorrhage, acute infarction or mass. CT cervical spine: There is straightening of the usual cervical lordosis. There are osteoarthritic changes of the atlant odental articulation. There are multilevel cervical spine degenerative disc changes, with disc space narrowing and osteophyte formation. No acute fracture or subluxation. IMPRESSION: 1. No acute intracranial abnormality. 2. No acute fracture or subluxation of the cervical spine. Electronically signed by: Aida Tee MD 09/09/2024 06:11 AM [facility] Due to temporary technical issues with the PACS/[employer] reporting system, reports are being johanna d by the in-house radiologist without review as a courtesy to ensure prompt reporting the interpreting radiologist is fully responsible for the content of the report. Transcribed Date/Time: 09/09/2024 6:17 AM
--- NOTE | 2024-09-09 06:40 | RAD REPORT ---
PROCEDURE: CT CHEST ABDOMEN PELVIS WITHOUT IV CONTRAST TECHNIQUE: Computerized axial tomography of the chest, abdomen, and pelvis after the IV injection o f iodinated nonionic contrast was performed. Automated exposure control, adjustment of mA and/or kV according to patient size, or iterative reconstruction dose optimization techniques were utilized. HISTORY: Pain after fall COMPARISONS: 07/30/2024. FINDINGS: Heart and pericardium: No pericardial effusion or thickening. There is coronary artery calcification. Thoracic aorta: Normal caliber. Pulmonary vasculature: Normal caliber. Mediastinum: No enlarged thoracic lymph nodes. Lungs: Platelike/linear atelectasis or scarring in the right lower lobe. Airways are patent. Pleural space: No effusion, thickening, or pneumothorax. Liver: Normal size and attenuation. Spleen: Normal size and attenuation. Gallbladder and biliary system: Cholelithiasis. Pancreas: Normal. Adrenals: Normal. Kidneys: Normal. GI tract: No bowel obstruction or inflammation. The appendix is not identified . Lymph nodes and mesentery: Normal. Vasculature: Normal.. Bladder: Normal. Reproductive organs: 5.4 cm transverse prostate gland with calcifications. Peritoneum: No free fluid. Musculoskeletal structures: Multilevel thoracic and lumbar spine degenerative changes. Other: None. IMPRESSION: 1. No acute abnormality. 2. Cholelithiasis. 3. Enlarged prostate gland. Electronically signed by: Aida Tee MD 09/09/2024 06:29 AM [facility] Due to temporary technical issues with the PACS/[employer] reporting system, reports are being johanna d by the in-house radiologist without review as a courtesy to ensure prompt reporting the interpreting radiologist is fully responsible for the content of the report. Transcribed Date/Time: 09/09/2024 6:39 AM
--- NOTE | 2024-09-09 07:05 | RAD REPORT ---
PROCEDURE: XR FOREARM RIGHT TECHNIQUE: Right forearm radiographs, AP and lateral views. HISTORY: Pain after trauma COMPARISONS: None . FINDINGS: No acute fracture or dislocation is seen. There is limited evaluation of the wrist. Soft tissue swelling. Vascular calcifications. No radiopaque foreign body. IMPRESSION: 1. No acute fracture or dislocation is seen. 2. Soft tissue swelling. Electronically signed by: Aida Tee MD 09/09/2024 06:30 AM [facility] Due to temporary technical issues with the PACS/[employer] reporting system, reports are being johanna d by the in-house radiologist without review as a courtesy to ensure prompt reporting the interpreting radiologist is fully responsible for the content of the report. Transcribed Date/Time: 09/09/2024 7:05 AM
--- NOTE | 2024-09-09 07:21 | EDPHYS ---
Physician Documentation [facility] Name: Donaldo English Age: 69 yrs Sex: Male : 1955 Arrival Date: 09/09/2024 Time: 04:51 Bed 6 Private MD: ED Physician Rolando Pool HPI: 09/09 05:05 This 69 yrs old Male presents to ER via EMS with complaints of Fall Injury. sp4 09/10 04:00 69-year-old male presents with complaint of acute fall. Patient is halfway patient sp4 and he cannot reliably state how he fell or whether the pain is. . Historical: - PMHx: 09/09 05:39 Cerebrovascular accident; coronary atherosclerosis; Dementia; depressive disorder; aa10 diabetes mellitus; Hypertensive disorder; Hypothyroidism; Right sided weakness; schizoaffective disorder; Seizure; Speech disturbances; - Code Status:: patient has OOH DNR. - Immunization history: Last tetanus immunization: unknown. - Infectious Disease History:: Denies. - Family history:: not pertinent. - Social history:: Smoking status: unknown. ROS: 09/10 04:00 Constitutional: Negative for fever, chills, and weight loss, sp4 All other systems are negative, Exam: 04:00 Constitutional: Elderly debilitated male with chronic appearing right-sided sp4 hemiparesis basically moderate to severe dementia, not able to provide HPI Head/Face: Normocephalic, atraumatic. Eyes: Pupils equal round and reactive to light, extra-ocular motions intact. Lids and lashes normal. Conjunctiva and sclera are not injected. Cornea within normal limits. Periorbital areas with no swelling, redness, or edema. ENT: Nares patent. No nasal discharge, no septal abnormalities noted. Tympanic membranes are normal and external auditory canals are clear. Oropharynx with no redness, swelling, or masses, exudates, or evidence of obstruction, uvula midline. Mucous membranes moist. Neck: Trachea midline, no thyromegaly or masses palpated, and no cervical lymphadenopathy. Supple, full range of motion without nuchal rigidity, or vertebral point tenderness. Chest/axilla: Normal chest wall appearance and motion. Nontender with no deformity. No lesions are appreciated. Cardiovascular: Regular rate and rhythm with a normal S1 and S2. No gallops, murmurs, or rubs. Normal PMI, no JVD. No pulse deficits. Respiratory: Lungs have equal breath sounds bilaterally, clear to auscultation and percussion. No rales, rhonchi or wheezes noted. No increased work of breathing, no retractions or nasal flaring. Abdomen/GI: Soft, with normal bowel sounds. No distension or tympany. No guarding or rebound. No evidence of tenderness throughout. Back: No spinal tenderness. No costovertebral tenderness. Male : Normal genitalia with no discharge or lesions. Patient is incontinent of bowel and bladder Skin: Warm, dry with normal turgor. Normal color with no rashes, no lesions, and no evidence of cellulitis. MS/ Extremity: Pulses equal, no cyanosis. Right-sided contractures associated with longstanding right-sided hemiparesis Neuro: Awake and alert, GCS 15, oriented to person, moderate to severe dementia, chronic appearing right-sided hemiparesis, Vital Signs: 09/09 04:55 BP 140 / 63; Pulse 60; Resp 18; Temp 98.3; Pulse Ox 100% on R/A; Pain 0/10; rg5 06:25 BP 186 / 75; Pulse 57; Resp 14 S; Pulse Ox 98% on R/A; aa10 07:37 BP 168 / 72; Pulse 58; Resp 15; Pulse Ox 96% on R/A; ko1 04:55 Pain Scale: Adult rg5 Kidder Coma Score: 04:55 Eye Response: spontaneous(4). Motor Response: obeys commands(6). Verbal Response: rg5 oriented(5). Total: 15. 09/10 04:00 Eye Response: spontaneous(4). Motor Response: obeys commands(6). Verbal Response: sp4 confused(4). Total: 14. Trauma Score (Adult): 09/09 04:55 Eye Response: spontaneous(1); Verbal Response: oriented(1); Motor Response: obeys rg5 commands(2); Systolic BP: > 89 mm Hg(4); Respiratory Rate: 10 to 29 per min(4); Kidder Score: 15; Trauma Score: 12 MDM: 05:07 Medical Screening Exam initiated sp4 07:11 ED course: PROCEDURE: CT CHESTABDOMEN PELVIS WITHOUT IV CONTRAST TECHNIQUE: sp4 Computerized axial tomography of the chest, abdomen, and pelvis after the IV injection of iodinated nonionic contrast was performed. Automated exposure control, adjustment of mA and/or kV according to patient size, or iterative reconstruction dose optimization techniques were utilized. HISTORY: Pain after fall COMPARISONS: 07/30/2024. FINDINGS: Heart and pericardium: No pericardial effusion or thickening. There is coronary artery calcification. Thoracic aorta: Normal caliber. Pulmonary vasculature: Normal caliber. Mediastinum: No enlarged thoracic lymph nodes. Lungs: Platelike/linear atelectasis or scarring in the right lower lobe. Airways are patent. Pleural space: No effusion, thickening, or pneumothorax. Liver: Normal size and attenuation. Spleen: Normal size and attenuation. Gallbladder and biliary system: Cholelithiasis. Pancreas: Normal. Adrenals: Normal. Kidneys: Normal. GI tract: No bowel obstruction or inflammation. The appendix is not identified . Lymph nodes and mesentery: Normal. Vasculature: Normal.. Bladder: Normal. Reproductive organs: 5.4 cm transverse prostate gland with calcifications. Peritoneum: No free fluid. Musculoskeletal structures: Multilevel thoracic and lumbar spine degenerative changes. Other: None. IMPRESSION: 1. No acute abnormality. 2. Cholelithiasis. 3. Enlarged prostate gland. Electronically signed by: Aida Tee MD 09/09/2024 06:29 AM. ED course: PROCEDURE: CT HEAD AND CERVICAL SPINE WITHOUT CONTRAST TECHNIQUE: Computerized tomography of the head and CT cervical spine was performed without contrast material. This exam was performed according to our department optimization program which includes automated exposure control, adjustment of the mA and/or kV according to patient size, and/or use of iterative reconstruction technique. HISTORY: Pain after fall COMPARISONS: CT head 09/06/2024. CT C-spine 07/14/2024. FINDINGS: CT head: Skull and scalp: Normal. Paranasal sinuses: Normal. Ventricles and subarachnoid spaces: Normal. Cerebrum: No evidence of hemorrhage, acute infarction or mass. Left parietal encephalomalacia is again seen. Diffuse chronic microvascular ischemic changes and involutional changes are again seen. Cerebellum and brainstem: No evidence of hemorrhage, acute infarction or mass. CT cervical spine: There is straightening of the usual cervical lordosis. There are osteoarthritic changes of the atlantodental articulation. There are multilevel cervical spine degenerative disc changes, with disc space narrowing and osteophyte formation. No acute fracture or subluxation. IMPRESSION: 1. No acute intracranial abnormality. 2. No acute fracture or subluxation of the cervical spine. Electronically signed by: Aida Tee MD 09/09/2024 06:11 AM. ED course: PROCEDURE: XR FOREARM RIGHT TECHNIQUE: Right forearm radiographs, AP and lateral views. HISTORY: Pain after trauma COMPARISONS: None . FINDINGS: No acute fracture or dislocation is seen. There is limited evaluation of the wrist. Soft tissue swelling. Vascular calcifications. No radiopaque foreign body. IMPRESSION: 1. No acute fracture or dislocation is seen. 2. Soft tissue swelling. . 09/10 04:04 Differential diagnosis: abrasion, closed head injury, contusion, fracture, laceration, sp4 multiple trauma. Data reviewed: vital signs, nurses notes, EMS record, old medical records, radiologic studies, CT scan, plain films. 09/09 05:14 Order name: CT Head C Spine; Complete Time: 04:05 sp4 09/09 05:14 Order name: CT Chest Abdomen Pelvis W/O Contrast; Complete Time: 04:05 sp4 09/09 05:15 Order name: Forearm Right XRAY; Complete Time: 04:05 sp4 Administered Medications: No medications were administered Disposition Summary: 09/09/24 07:20 Discharge Ordered Problem: new sp4 Symptoms: have improved sp4 Condition: Stable sp4 Diagnosis - Fall on same level, unspecified sp4 - Acute fall in a halfway, acute right Proximal forearm contusion sp4 Followup: sp4 - With: Private Physician - When: 7 - 10 days - Reason: Recheck today's complaints Discharge Instructions: - Discharge Summary Sheet sp4 - Fall Prevention in Hospitals, Adult sp4 Forms: - Patient Portal Instructions sp4 Signatures: Dispatcher [employer] EDManuela Mack RN RN ko1 Rolando Pool MD MD sp4 Jean Graff RN RN rg5 Farhat Kaiser RN RN aa10
--- NOTE | 2024-09-09 07:21 | ER ---
Nurse's Notes [facility] Name: Donaldo English Age: 69 yrs Sex: Male : 1955 Arrival Date: 09/09/2024 Time: 04:51 Bed 6 Private MD: Diagnosis: Fall on same level, unspecified;Acute [facility] in a jail, acute right Proximal forearm contusion Presentation: 09/09 04:55 Chief complaint: EMS states: family called us because the patient had just a fall in rg5 the nursing facility. Pt has a HX of stroke with right sided weakness, taking blood thinners and dementia. No LOC and doesn't complaint of pain. Care prior to arrival: None. Mechanism of Injury: Fall from standing position. Trauma event details: Injury occurred in the [facility], Injury occurred: September 09, 2024. 04:55 Acuity: LILIANA 3 rg5 04:55 Method Of Arrival: EMS: [facility] rg5 05:37 Coronavirus screen: Client denies travel out of the [place] in the last 14 days. Ebola aa10 Screen: Patient negative for fever greater than or equal to 101.5 degrees Fahrenheit, and additional compatible Ebola Virus Disease symptoms Patient denies exposure to infectious person. Initial Sepsis Screen: Does the patient meet any 2 criteria? No. Patient's initial sepsis screen is negative. Does the patient have a suspected source of infection? No. Patient's initial sepsis screen is negative. Risk Assessment: Do you want to hurt yourself or someone else? Patient reports no desire to harm self or others. Onset of symptoms was September 09, 2024. Trauma Activation: Not Applicable Physician: ED Physician; Name: ; Notified At: ; Arrived At: Physician: General Surgeon; Name: ; Notified At: ; Arrived At: Physician: Radiology; Name: ; Notified At: ; Arrived At: Physician: Respiratory; Name: ; Notified At: ; Arrived At: Physician: Lab; Name: ; Notified At: ; Arrived At: Historical: - PMHx: 05:39 Cerebrovascular accident; coronary atherosclerosis; Dementia; depressive disorder; aa10 diabetes mellitus; Hypertensive disorder; Hypothyroidism; Right sided weakness; schizoaffective disorder; Seizure; Speech disturbances; - Code Status:: patient has OOH DNR. - Immunization history: Last tetanus immunization: unknown. - Infectious Disease History:: Denies. - Family history:: not pertinent. - Social history:: Smoking status: unknown. Screenin:55 Abuse screen: Denies threats or abuse. Tuberculosis screening: No symptoms or risk rg5 factors identified. 05:35 [facility] ED Fall Risk Assessment (Adult) History of falling in the last 3 months, aa10 including since admission No falls in past 3 months (0 pts) Confusion or Disorientation Yes (5 pts) Intoxicated or Sedated No (0 pts) Impaired Gait Yes (1 pt) Mobility Assist Device Used Yes (1 pt) Altered Elimination Yes (1 pt) Score/Fall Risk Level 3 or more points = High Risk Oriented to surroundings, Maintained a safe environment, Educated pt \T\ family on fall prevention, incl call for assistance when getting out of bed, Assessed \T\ reinforced patient's understanding of fall precautions, Provided non-skid footwear, Hourly rounding (assess needs \T\ fall precautionary measures) done, Used ambulatory aids as needed (educated on \T\ assisted with), Apply high fall risk patient identification: yellow non skid footwear/ fall signage. Nutritional screening: No deficits noted. Primary Survey: 04:55 NO uncontrolled hemorrhage observed. A: The client is awake and alert. The airway is rg5 patent. Breathing/Chest: Spontaneous respiratory effort, equal unlabored respirations, breath sounds clear bilaterally, regular pattern, symmetrical chest rise and fall. Circulation: No external hemorrhage present. Regular and strong central pulse, skin warm/dry/normal color. Disability Client is alert. Exposure/Environment: All clothing and personal items were removed. Forensic evidence collection is not deemed to be indicated at this time. Items placed in patient belonging bag. 05:42 Reassessment Alertness and Airway: Airway Patent Breathing: Spontaneous respiratory aa10 effort, equal unlabored respirations, breath sounds clear bilaterally, regular pattern with symmetrical chest rise and fall. Circulation: No external hemorrhage noted. Regular and strong central pulse, skin warm/dry/normal color. Disability: Alert. Secondary Survey: 05:34 HEENT: Head No injury/deformity Face No injury/deformity Eyes: No injury or deformity aa10 noted. to bilateral eyes. Ears: clear bilaterally. Nose: clear to bilateral nares. Throat: No injury or deformity noted. is clear with gag reflex present. Gastrointestinal: No deficits noted. Abdomen is soft, Bowel sounds present in all quadrants. : No signs and/or symptoms were reported regarding the genitourinary system. Musculoskeletal: No deficits noted. CONTRACTURE of the left hand noted. Assessment: 04:55 General: Appears in no apparent distress. Behavior is calm, cooperative. Pain: Denies rg5 pain. Neuro: Level of Consciousness is awake, alert. EENT: No deficits noted. Cardiovascular: Patient's skin is warm and dry. Respiratory: Airway is patent Trachea midline Respiratory effort is even, unlabored, Respiratory pattern is regular, symmetrical. GI: Abdomen is round non-distended. : No signs and/or symptoms were reported regarding the genitourinary system. Derm: Skin is intact, Skin is dry, Skin is normal. Musculoskeletal: Range of motion: limited in right arms \T\ legs. 06:26 Reassessment: Patient appears in no apparent distress at this time. No changes from aa10 previously documented assessment. Patient and/or family updated on plan of care and expected duration. Pain level reassessed. Patient is alert, oriented x 3, equal unlabored respirations, skin warm/dry/pink. Vital Signs: 04:55 BP 140 / 63; Pulse 60; Resp 18; Temp 98.3; Pulse Ox 100% on R/A; Pain 0/10; rg5 06:25 BP 186 / 75; Pulse 57; Resp 14 S; Pulse Ox 98% on R/A; aa10 07:37 BP 168 / 72; Pulse 58; Resp 15; Pulse Ox 96% on R/A; ko1 04:55 Pain Scale: Adult rg5 Chloride Coma Score: 04:55 Eye Response: spontaneous(4). Motor Response: obeys commands(6). Verbal Response: rg5 oriented(5). Total: 15. 09/10 04:00 Eye Response: spontaneous(4). Motor Response: obeys commands(6). Verbal Response: sp4 confused(4). Total: 14. Trauma Score (Adult): 09/09 04:55 Eye Response: spontaneous(1); Verbal Response: oriented(1); Motor Response: obeys rg5 commands(2); Systolic BP: > 89 mm Hg(4); Respiratory Rate: 10 to 29 per min(4); Nickolas Score: 15; Trauma Score: 12 ED Course: 04:51 Patient arrived in ED. [email or web address] 04:54 Jean Graff, RN is Primary Nurse. rg5 04:55 Patient has correct armband on for positive identification. Placed in gown. Bed in low rg5 position. Call light in reach. Side rails up X2. 04:55 Patient maintains SpO2 saturation greater than 95% on room air. rg5 05:02 Triage completed. rg5 05:04 Rolando Pool MD is Attending Physician. sp4 05:35 Provided Education on: on plan of care. aa10 05:35 Inserted saline lock: 18 gauge in right forearm, using aseptic technique. aa10 05:39 Thermoregulation: warm blanket given to patient. aa10 05:58 CT Head C Spine In Process Unspecified. EDMS 05:58 CT Chest Abdomen Pelvis W/O Contrast In Process Unspecified. EDMS 06:10 Forearm Right XRAY In Process Unspecified. EDMS 07:00 Client placed on continuous cardiac and pulse oximetry monitoring. NIBP monitoring ko1 applied. shelter monitor on. Door closed. Noise minimized. Lights dimmed. Warm blanket given. Pillow given. 07:00 No provider procedures requiring assistance completed. IV discontinued, intact, ko1 bleeding controlled, No redness/swelling at site. Pressure dressing applied. 07:38 Arm band placed on right wrist. ko1 07:50 Report given to Marycruz at [facility], she will call ambulance to transport patient back ko1 to their facility. 07:58 Patient requests rest room assistance. ko1 07:58 Assisted with urinal. ko1 08:01 Awaiting transportation. ko1 08:40 Awaiting transportation. ko1 Administered Medications: No medications were administered Medication: 05:37 VIS not applicable for this client. aa10 Intake: 05:40 PO: 0ml; IV: 10ml; Total: 10ml. aa10 Output: 05:40 Urine: 0ml; Gastric: 0ml; Stool: 0; EBL: 0ml; Drainage: 0ml; Other: 0; Total: 0ml. aa10 Outcome: 06:27 Patient's length of stay was not longer than 2 hours. aa10 07:20 Discharge ordered by . sp4 07:50 Condition: stable ko1 07:50 Discharge instructions given to jail, EMS, Instructed on discharge instructions, follow up and referral plans. Demonstrated understanding of instructions, follow-up care, 09:41 Discharged to jail. Report called to [facility] Transfer form completed. Valuables ko1 list done. 09:51 Patient left the ED. ko1 Signatures: Dispatcher [employer] EDMS Iliana [email or web address] Manuela Pineda, RN RN ko1 Rolando Pool MD MD sp4 Jean Graff RN RN rg5 Farhat Kaiser RN RN aa10
[2024-09-09 09:59] VITALS: TEMP 98.3
[2024-09-09 10:01] VITALS: BP 168/72; O2SAT 96
== END 2024-09-09 09:51 | disposition home or self-care (01) ==
LOC: ER 04:51
DX: S50.11XA Contusion of right forearm, initial encounter (principal); W18.30XA Fall on same level, unspecified, initial encounter; Y93.9 Activity, unspecified; Y92.129 Unspecified place in nursing home as the place of occurrence of the external cause; I10 Essential (primary) hypertension; E30.9 Disorder of puberty, unspecified; F03.90 Unspecified dementia, unspecified severity, without behavioral disturbance, psychotic disturbance, mood disturbance, and anxiety; E11.9 Type 2 diabetes mellitus without complications; F25.9 Schizoaffective disorder, unspecified; I69.351 Hemiplegia and hemiparesis following cerebral infarction affecting right dominant side
CPT/HCPCS: 70450; 71250; 72125; 74176; 99284

== ENCOUNTER 2024-10-10 19:31 | Inpatient (IN) | payer OTHER ==
[2024-10-10] MEDS ORDERED: NA CHLORIDE 0.9% 2,000 ML ONE (19:57)
[2024-10-10] MEDS ORDERED: ACETAMINOPHEN 500 MG TAB ONE (19:57)
[2024-10-10] MEDS ORDERED: NA CHLORIDE 0.9% 100 ML ONE ×2 (19:57→23:25)
[2024-10-10] MEDS ORDERED: FAMOTIDINE 20 MG/2 ML VIAL IV ONE (19:57)
[2024-10-10] MEDS ORDERED: PIPERACIL/TAZO 3.375 GM VIAL IV ONE (19:58)
[2024-10-10] MEDS ORDERED: VANCOMYCIN 1 GM/VIAL ONE (20:30)
[2024-10-10] MEDS ORDERED: NA CHLORIDE 0.9% 250 ML ONE (20:31)
[2024-10-10 20:41] LABS: PT Prothrombin Time 13.9 SECONDS (9.4-12.5); Protime INR 1.33
[2024-10-10 20:46] LABS: Absolute Lymphocytes (CBC) 0.7 K/uL (0.7-4.9); Absolute Monocytes 1.9 K/uL (0.1-1.3); Absolute Neutrophil 11.8 K/uL (1.8-8.0); Basophils % 0.2 % (0-1.3); Eosinophils % 0.2 % (0-4.4); Hematocrit 30.7 % (39.6-49.0); Hemoglobin 10.2 g/dL (13.6-17.9); Lymphocytes % 4.7 % (15.3-44.8); MCH 27.3 pg (27.0-35.0); MCHC 33.4 g/dL (32.0-36.0); MCV 81.8 fL (80-100); MPV 8.1 fL (7.6-11.3); Monocytes % 12.9 % (3.3-12.3); Platelets 219 thou/uL (152-406); RBC Red Blood Cell Count 3.75 M/uL (4.33-5.43); Red Cell Distribution Width 16.6 % (12.1-15.2)
--- NOTE | 2024-10-10 20:50 | RAD REPORT ---
Exam:Foot Right 3 View CLINICAL HISTORY: Right foot pain FINDINGS: No fracture or dislocation seen. The phalanx has been resected. No bony destructive lesion visualized. Calcaneal spurs
[2024-10-10 20:59] LABS: ALT/SGPT < 14 U/L (16-61); AST/SGOT < 10 U/L (15-37); Albumin 2.7 g/dL (3.4-5.0); Albumin/Globulin Ratio 0.7 (1.1-1.8); Alkaline Phosphatase 62 U/L (45-117); Anion Gap 10.9 mEq/L (5.0-15.0); BUN Blood Urea Nitrogen 24 mg/dL (7-18); Bicarbonate 27 mEq/L (21-32); Bilirubin Direct 0.2 mg/dL (0-0.2); Bilirubin Indirect, Calculated 0.6 mg/dL (0.2-0.8); Bilirubin Total 0.8 mg/dL (0.2-1.0); Globulin 3.8 g/dL (2.3-3.5); Glomerular Filtration Rate 81 ml/min (=/>90); Glucose Level 255 mg/dL (74-106); Lipase 19 U/L (13-75); Magnesium 2.1 mg/dL (1.6-2.4); NT PRO-BNP 465 pg/mL (<125); Potassium 2.9 mEq/L (3.5-5.1); Protein, Total 6.5 g/dL (6.4-8.2); Sodium Level 138 mEq/L (136-145)
--- NOTE | 2024-10-10 21:04 | RAD REPORT ---
EXAMINATION: US bilateral LOWER EXTREMITY VENOUS DOPPLER CLINICAL INDICATION: Leg pain TECHNIQUE: Sonographic evaluation of the veins of the lower extremity bilaterally formed.Grayscale, c olor and spectral analysis performed on all vessels COMPARISON: No prior exam. FINDINGS: The common femoral, superficial femoral, greater saphenous, popliteal and posterior tibial veins bila terally are compressible and demonstrate augmentation. Doppler demonstrates good flow. IMPRESSION: No evidence of deep venous thrombosis involving either lower extremity
[2024-10-10 21:28] LABS: SARS-CoV-2 Antigen CONTROL BLUE LINE VIS/BG OK; SARS-CoV-2 Antigen Rapid Res Negative (Negative)
[2024-10-10] MEDS ORDERED: NS KCL 20MEQ 1,000 ML IV ONE (21:46)
[2024-10-10] MEDS ORDERED: KCL 20 MEQ/100 mL IVPB 100 ML IV ONE (21:47)
[2024-10-10] MEDS ORDERED: SILVER SULFADIAZINE 1% 25 GM TOP ONE (21:48)
[2024-10-10] MEDS ORDERED: NA CHLORIDE 0.9% 500 ML ONE (21:48)
--- NOTE | 2024-10-10 21:51 | EDPHYS ---
Physician Documentation [facility] Name: Donaldo English Age: 69 yrs Sex: Male : 1955 Arrival Date: 10/10/2024 Time: 19:31 Bed 13 Private MD: ED Physician Jac Ramos HPI: 10/10 20:23 This 69 yrs old Male presents to ER via EMS with complaints of Abdominal marian Distention. Historical: - Allergies: 19:40 No Known Allergies; ha1 - PMHx: 19:40 Cerebrovascular accident; coronary atherosclerosis; Dementia; depressive disorder; ha1 diabetes mellitus; Hypertensive disorder; Hypothyroidism; Right sided weakness; schizoaffective disorder; Seizure; Speech disturbances; DYSPHASIA (Speech disturbances); - Immunization history:: Adult Immunizations unknown. - Infectious Disease History:: Denies. - Social history:: Smoking status: unknown. ROS: 20:34 MS/extremity: Positive for decreased range of motion, ecchymosis, pain, swelling, marian tenderness, of the right foot, 20:34 Eyes: Negative for injury, pain, redness, and discharge, ENT: Negative for injury, pain, and discharge, Neck: Negative for injury, pain, and swelling, Cardiovascular: Negative for chest pain, palpitations, and edema, Respiratory: Negative for shortness of breath, cough, wheezing, and pleuritic chest pain, Back: Negative for injury and pain, : Negative for injury, bleeding, discharge, and swelling, MS/Extremity: Negative for injury and deformity, Skin: Negative for injury, rash, and discoloration, Neuro: Negative for headache, weakness, numbness, tingling, and seizure, 20:34 Abdomen/GI: Positive for abdominal pain, constipation, abdominal distension, of the right upper quadrant, left upper quadrant, right lower quadrant and left lower quadrant, 20:34 MS/extremity: Positive for injury or acute deformity, decreased range of motion, erythema, pain, swelling, tenderness, of the right foot and right leg, Exam: 20:34 Head/Face: Normocephalic, atraumatic. Eyes: Pupils equal round and reactive to light, marian extra-ocular motions intact. Lids and lashes normal. Conjunctiva and sclera are non-icteric and not injected. Cornea within normal limits. Periorbital areas with no swelling, redness, or edema. ENT: Nares patent. No nasal discharge, no septal abnormalities noted. Tympanic membranes are normal and external auditory canals are clear. Oropharynx with no redness, swelling, or masses, exudates, or evidence of obstruction, uvula midline. Mucous membranes moist. Neck: Trachea midline, no thyromegaly or masses palpated, and no cervical lymphadenopathy. Supple, full range of motion without nuchal rigidity, or vertebral point tenderness. No Meningismus. Chest/axilla: Normal chest wall appearance and motion. Nontender with no deformity. No lesions are appreciated. Cardiovascular: Regular rate and rhythm with a normal S1 and S2. No gallops, murmurs, or rubs. Normal PMI, no JVD. No pulse deficits. Respiratory: Lungs have equal breath sounds bilaterally, clear to auscultation and percussion. No rales, rhonchi or wheezes noted. No increased work of breathing, no retractions or nasal flaring. Back: No spinal tenderness. No costovertebral tenderness. Full range of motion. Male : Normal genitalia with no discharge or lesions. Psych: Awake, alert, with orientation to person, place and time. Behavior, mood, and affect are within normal limits. 20:34 Abdomen/GI: Inspection: distension, that is moderate, Bowel sounds: hyperactive, in all quadrants, Palpation: nontender, in all quadrants, Liver: no appreciated palpable abnormalities, Hernia: not appreciated, 20:34 Musculoskeletal/extremity: ROM: full active range of motion, full passive range of motion, in all extremities, Circulation is intact in all extremities. Sensation intact. Compartment Syndrome exam of affected extremity: is normal. DVT Exam: pain, swelling, tenderness, that is moderate, of the right leg, of the right leg, 21:55 ECG was reviewed by the Attending Physician. [facility] Vital Signs: 19:36 BP 148 / 54; Pulse 87; Resp 18; Temp 100.9(O); Pulse Ox 98% ; Weight 76.66 kg; Height 5 ha1 ft. 9 in. ; 21:00 BP 132 / 87; Pulse 69; Resp 17 S; Temp 98.8(O); Pulse Ox 100% on R/A; ha1 19:36 Body Mass Index 24.96 (76.66 kg, 175.26 cm) ha1 NIH Stroke Scale Scores: 20:34 NIHSS Score: 0 marian MDM: 19:41 Medical Screening Exam initiated marian 20:37 Differential Diagnosis altered mental status, sepsis, flu. Differential diagnosis: marian sprain, gout, cellulitis, pneumonia UTI, gastroenteritis, bowel obstruction, coronary artery disease, Cholelithiasis, diverticulitis, gastritis, gastroesophageal reflux disease, non-specific abd pain, pancreatitis, Peptic Ulcer Disease. Data reviewed: vital signs, nurses notes, EMS record, lab test result(s), EKG, radiologic studies, CT scan, doppler, plain films. Consideration of Admission/Observation Patient was admitted/placed on observation. Escalation of care including admission/observation considered. I considered the following discharge prescriptions or medication management in the emergency department Medications were administered in the Emergency Department. See MAR. Independent interpretation of the following test(s) in the Emergency Department EKG: See my EKG interpretation above. Test considered but Not performed: MRI: no mri right foot. Historians other than the Patient: Family Member: children well informed. Care significantly affected by the following chronic conditions: Diabetes, Hypertension, Obesity, cva, depression. 10/10 19:44 Order name: Basic Metabolic Panel; Complete Time: 21:30 10/10 19:44 Order name: CBC with Diff; Complete Time: 21:30 10/10 19:44 Order name: LFT's; Complete Time: 21:30 10/10 19:44 Order name: Magnesium; Complete Time: 21:30 10/10 19:44 Order name: NT PRO-BNP; Complete Time: 21:30 10/10 19:44 Order name: PT-INR; Complete Time: 21:30 10/10 19:44 Order name: Troponin HS; Complete Time: 21:30 10/10 19:44 Order name: Lipase; Complete Time: 21:30 10/10 19:44 Order name: Urinalysis w/ reflexes 10/10 19:44 Order name: Blood Culture Adult (2) 10/10 19:44 Order name: SARS RAPID; Complete Time: 21:30 10/10 19:44 Order name: Flu; Complete Time: 21:30 10/10 19:55 Order name: CRP; Complete Time: 21:30 10/10 21:35 Order name: Lactate w/ 2H reflex if indic. 10/10 21:51 Order name: Depakote 10/10 22:27 Order name: CBC with Automated Diff [facility] 10/10 22:27 Order name: CBC with Automated Diff [facility] 10/10 22:27 Order name: Comprehensive Metabolic Panel [facility] 10/10 22:27 Order name: Comprehensive Metabolic Panel [facility] 10/10 22:27 Order name: Creatine Phosphokinase [facility] 10/10 22:27 Order name: Creatine Phosphokinase [facility] 10/10 22:27 Order name: Creatine Phosphokinase [facility] 10/10 22:27 Order name: Creatine Phosphokinase [facility] 10/10 22:27 Order name: Magnesium [facility] 10/10 22:27 Order name: Magnesium [facility] 10/11 01:30 Order name: Glucose, Ancillary Testing [facility] 10/10 19:44 Order name: XRAY Chest (1 view) [facility] 10/10 19:44 Order name: CT Chest, Abdomen, Pelvis - W/Contrast [facility] 10/10 19:55 Order name: Foot Right 3 View XRAY; Complete Time: 21:30 [facility] 10/10 20:21 Order name: US Extremity Venous W Compression Wilian; Complete Time: 21:30 [facility] 10/10 19:44 Order name: Cardiac monitoring; Complete Time: 20:19 [facility] 10/10 19:44 Order name: EKG - Nurse/Tech; Complete Time: 21:10 [facility] 10/10 19:44 Order name: IV Saline Lock; Complete Time: 20:19 [facility] 10/10 19:44 Order name: Labs collected and sent; Complete Time: 20:19 [facility] 10/10 19:44 Order name: O2 Per Protocol; Complete Time: 20:19 [facility] 10/10 19:44 Order name: O2 Sat Monitoring; Complete Time: 20:19 [facility] 10/10 21:33 Order name: IV Saline Lock - Large Bore; Complete Time: 21:35 [facility] EC:55 Rate is 85 beats/min. Rhythm is regular. QRS Comstock is Normal. IN interval is normal. QRS marian interval is normal. QT interval is normal. No Q waves. T waves are Normal. No ST changes noted. Clinical impression: Normal ECG and No evidence of ischemia. Interpreted by me. Reviewed by me. Administered Medications: 20:17 Drug: Famotidine IVP 20 mg IVP once; dilute with 10 mL 0.9% NaCl; give over 2 minutes ha1 Route: IVP; Site: right forearm; 21:00 Follow up: Response: No adverse reaction; Marked relief of symptoms [facility] 20:18 Drug: Acetaminophen PO 1000 mg PO once Route: PO; 1 21:00 Follow up: Response: No adverse reaction; Temperature is decreased [facility] 20:18 Drug: Piperacillin-Tazobactam IVPB 3.375 grams IVPB once over 60 mins; (mix in NS 100 ha1 mL) Route: IVPB; Infused Over: 60 mins; Site: right forearm; 21:10 Follow up: Response: No adverse reaction; IV Status: Completed infusion; IV Intake: ha1 100ml 20:19 Drug: NS 0.9% IV (30 ml/kg) 30 ml/kg IV at bolus once; Sepsis Protocol; to be given as ha1 a bolus over 90 minutes Route: IV; Rate: bolus; Site: right forearm; 10/11 00:00 Follow up: IV Status: Completed infusion [facility] 10/10 21:21 Drug: vancoMYCIN IVPB 1 grams IVPB once over 2 hrs Route: IVPB; Infused Over: 2 hrs; [facility] Site: right forearm; 23:20 Follow up: Response: No adverse reaction; IV Status: Completed infusion; IV Intake: ha1 500ml 10/11 00:50 Follow up: IV Status: Completed infusion; IV Intake: 500ml 5 10/10 22:00 Drug: Potassium Chloride IV 20 mEq IV at per protocol once; administer over 1-2 hours [facility] Route: IV; Rate: per protocol; Site: left hand; 10/11 02:58 Follow up: IV Status: Completed infusion; IV Intake: 100ml 5 10/10 22:00 Drug: NS 0.9% with KCl IV 20 mEq/L 1000 ml IV at 125 ml/hr continuous Route: IV; Rate: ha1 125 ml/hr; Site: left hand; 10/11 03:00 Follow up: IV Status: Infusion continued upon admission; IV Intake: 450ml 5 10/10 22:23 Drug: Silver SulfADIAZINE Topical Cream 1 % 1 application Topical once Route: Topical; [facility] Site: affected area; 23:00 Follow up: Response: No adverse reaction [facility] 23:38 Drug: Enoxaparin Sub-Q 1 mg/kg Sub-Q once {Note: RIGHT LOWER QUADRANT.} Route: Sub-Q; [facility] Site: abdomen; 10/11 00:00 Follow up: Response: No adverse reaction rg5 10/10 23:39 Drug: Keppra IV 1000 mg IV at per protocol once Route: IV; Rate: per protocol; Site: ha1 left hand; 10/11 00:00 Follow up: IV Status: Completed infusion rg5 00:00 Follow up: Response: No adverse reaction; IV Status: Completed infusion; IV Intake: ha1 100ml Disposition Summary: 10/10/24 21:50 Hospitalization Ordered Notes: Hospitalization Status: Inpatient Admission marian Provider: Carmen Tao cha Condition: Fair marian Problem: new marian Symptoms: have improved marian Bed/Room Type: Standard marian Location: Telemetry/MedSurg (Inpatient)(10/11/24 01:58) Room Assignment: 201(10/11/24 01:58) Diagnosis - Fever, unspecified marian - Abdominal distension (gaseous) marian - Abdominal pain, Generalized marian - Other megacolon - hx of marian - Cellulitis of right lower limb - right foot, great toe marian - Other seizures - disorder marian - Type 2 diabetes mellitus with hyperglycemia marian - Abnormal levels of other serum enzymes - elevated troponin marian - Elevated white blood cell count marian - Hypokalemia marian Forms: - Medication Reconciliation Form marian - SBAR form marian - Leadership Thank You Letter marian NIH Stroke Scale - NIH Stroke Score Date: 10/10/2024 Time: 20:34 Total Score = 0 10. Dysarthria (speech clarity - read or repeat words) - 0(Normal) 11. Extinction and Inattention (visual/tactile/auditory/spatial/personal) - 0(No abnormality) 1a. Level of Consciousness (LOC) - 0(Alert) 1b. Level of Consciousness (LOC) (Month \T\ Age) - 0(Both) 1c. LOC Commands (Open \T\ Closes Eyes/Pipeline Dispatcher) - 0(Both) 2. Best Gaze (Lateral Gaze Paresis) - 0(Normal) 3. Visual Field Loss - 0(No visual loss) 4. Facial Palsy - 0(Normal) 5a. Left Arm: Motor (10-second hold) - 0(No drift) 5b. Right Arm: Motor (10-second hold) - 0(No drift) 6a. Left Leg: Motor (5-second hold - always test supine) - 0(No drift) 6b. Right Leg: Motor (5-second hold - always test supine) - 0(No drift) 7. Limb Ataxia (finger/nose \T\ heel/lopez - test with eyes open) - 0(Absent) 8. Sensory Loss (pinprick arms/legs/face) - 0(Normal) 9. Best Language: Aphasia (description/naming/reading) - 0(No aphasia) Initials: [facility] Signatures: Dispatcher [employer] EDMS Erica Shelton, RN Jac Prieto MD MD cha Able, Lacie, RN RN lg3 Lilly Sheehan RN RN ha1 Jean Graff RN RN rg5 Corrections: (The following items were deleted from the chart) 10/10 19:44 19:44 Chest Abdomen Pelvis W Con+CT.RAD.BRZ ordered. [facility] 21:58 21:50 Telemetry/MedSurg (Inpatient) [facility] 21:58 21:50 [facility] 10/11 01:58 10/10 21:[address] [facility] ER HOLD 3 kl 10/11 01:58 10/10 21:58 ERHOLD- 3 kl
--- NOTE | 2024-10-10 21:51 | ER ---
Nurse's Notes [facility] Name: Donaldo English Age: 69 yrs Sex: Male : 1955 Arrival Date: 10/10/2024 Time: 19:31 Bed 13 Private MD: Diagnosis: Fever, unspecified;Abdominal distension (gaseous);Abdominal pain, Generalized;Other megacolon-hx of;Cellulitis of right lower limb-right foot, great toe;Other seizures-disorder;Type 2 diabetes mellitus with hyperglycemia;Abnormal levels of other serum enzymes-elevated troponin;Elevated white blood cell count;Hypokalemia Presentation: 10/10 19:36 Chief complaint: EMS states: Coming from [facility], DISTENDED STOMACH NO ha1 BOWEL MOVEMENT FOR THE PAST TWO DAYS. Coronavirus screen: Client denies travel out of the [place] in the last 14 days. Ebola Screen: No symptoms or risks identified at this time. Initial Sepsis Screen: Does the patient meet any 2 criteria? No. Patient's initial sepsis screen is negative. Does the patient have a suspected source of infection? No. Patient's initial sepsis screen is negative. Risk Assessment: Do you want to hurt yourself or someone else? Patient reports no desire to harm self or others. Onset of symptoms was October 10, 2024. 19:36 Method Of Arrival: EMS: [facility] 19:36 Acuity: LILIANA 3 ha1 Triage Assessment: 19:35 General: Appears uncomfortable, Behavior is cooperative. Pain: Denies pain. Neuro: ha1 Level of Consciousness is awake, alert, obeys commands, Oriented to person, place. Cardiovascular: Capillary refill < 3 seconds Patient's skin is warm and dry. Respiratory: Airway is patent Respiratory effort is even, unlabored, Respiratory pattern is regular, symmetrical. GI: Abdomen is round distended, obese, Reports constipation. : No signs and/or symptoms were reported regarding the genitourinary system. Derm: Skin is pink, warm \T\ dry. Musculoskeletal: Circulation, motion, and sensation intact. Historical: - Allergies: 19:40 No Known Allergies; ha1 - PMHx: 19:40 Cerebrovascular accident; coronary atherosclerosis; Dementia; depressive disorder; ha1 diabetes mellitus; Hypertensive disorder; Hypothyroidism; Right sided weakness; schizoaffective disorder; Seizure; Speech disturbances; DYSPHASIA (Speech disturbances); - Immunization history:: Adult Immunizations unknown. - Infectious Disease History:: Denies. - Social history:: Smoking status: unknown. Screenin:35 [facility] ED Fall Risk Assessment (Adult) History of falling in the last 3 months, ha1 including since admission Yes- single mechanical fall (1 pt) Confusion or Disorientation Yes (5 pts) Intoxicated or Sedated No (0 pts) Impaired Gait Yes (1 pt) Mobility Assist Device Used Yes (1 pt) Altered Elimination Yes (1 pt) Score/Fall Risk Level 3 or more points = High Risk Oriented to surroundings, Maintained a safe environment, Educated pt \T\ family on fall prevention, incl call for assistance when getting out of bed, Hourly rounding (assess needs \T\ fall precautionary measures) done, Implemented a Fall Risk Plan of Care, Apply high fall risk patient identification: yellow non skid footwear/ fall signage. Abuse screen: Denies threats or abuse. Denies injuries from another. Nutritional screening: No deficits noted. Tuberculosis screening: No symptoms or risk factors identified. Assessment: 20:20 Reassessment: SEE TRIAGE ASSESSMENT. ha1 21:00 Reassessment: Patient and/or family updated on plan of care and expected duration. Pain ha1 level reassessed. Patient is alert, oriented x 3, equal unlabored respirations, skin warm/dry/pink. Patient states symptoms have improved. 22:00 Reassessment: Patient and/or family updated on plan of care and expected duration. Pain ha1 level reassessed. 23:00 Reassessment: Patient and/or family updated on plan of care and expected duration. Pain ha1 level reassessed. Respiratory: Airway is patent Respiratory effort is even, unlabored, Respiratory pattern is regular, symmetrical. 10/11 00:00 GI: Bowel sounds present in left lower quadrant Abd is soft Reports bloating. rg5 Vital Signs: 10/10 19:36 BP 148 / 54; Pulse 87; Resp 18; Temp 100.9(O); Pulse Ox 98% ; Weight 76.66 kg; Height 5 ha1 ft. 9 in. ; 21:00 BP 132 / 87; Pulse 69; Resp 17 S; Temp 98.8(O); Pulse Ox 100% on R/A; ha1 19:36 Body Mass Index 24.96 (76.66 kg, 175.26 cm) ha1 NIH Stroke Scale Scores: 20:34 NIHSS Score: 0 [facility] ED Course: 19:35 Patient arrived in ED. ha1 19:40 Triage completed. ha1 19:41 Jac Ramos MD is Attending Physician. marian 20:05 Inserted saline lock: 20 gauge in right wrist, using aseptic technique. Blood sa1 collected. Flushed with 10 mL NS. 20:05 First set of blood cultures drawn by me. sa1 20:16 Initial lab(s) drawn, by me, sent to lab. sa1 20:18 Blood Culture Adult (2) Sent. ha1 20:18 Lipase Sent. ha1 20:18 SARS RAPID Sent. ha1 20:18 Flu Sent. ha1 20:18 CRP Sent. ha1 20:20 Basic Metabolic Panel Sent. ha1 20:20 CBC with Diff Sent. ha1 20:20 LFT's Sent. ha1 20:20 Magnesium Sent. ha1 20:20 NT PRO-BNP Sent. ha1 20:20 PT-INR Sent. ha1 20:20 Troponin HS Sent. ha1 20:20 Second set of blood cultures drawn by me. sa1 20:31 XRAY Chest (1 view) In Process Unspecified. EDMS 20:31 Foot Right 3 View XRAY In Process Unspecified. EDMS 20:59 US Extremity Venous W Compression Wilian In Process Unspecified. EDMS 21:09 EKG done, by ED staff. sa1 21:21 Lilly Sheehan, RN is Primary Nurse. ha1 21:38 CT Chest, Abdomen, Pelvis - W/Contrast In Process Unspecified. EDMS 21:45 Carmen Tao MD is Hospitalizing Provider. marian 21:59 Missed attempt(s): 20 gauge in left wrist. Bleeding controlled, band aid applied, sa1 catheter tip intact. 23:00 No provider procedures requiring assistance completed. Inserted saline lock: 22 gauge al5 in left hand, using aseptic technique. Flushed with 10 mL NS. 10/11 00:00 Patient has correct armband on for positive identification. Fall risk band placed. rg5 Placed in gown. Call light in reach. Side rails up X2. 00:00 Provided Education on: need for admit. rg5 02:27 Arm band placed on left wrist. rg5 02:28 Patient admitted, IV remains in place. intact, No redness/swelling at site. [facility] Administered Medications: 10/10 20:17 Drug: Famotidine IVP 20 mg IVP once; dilute with 10 mL 0.9% NaCl; give over 2 minutes ha1 Route: IVP; Site: right forearm; 21:00 Follow up: Response: No adverse reaction; Marked relief of symptoms [facility] 20:18 Drug: Acetaminophen PO 1000 mg PO once Route: PO; ha1 21:00 Follow up: Response: No adverse reaction; Temperature is decreased 1 20:18 Drug: Piperacillin-Tazobactam IVPB 3.375 grams IVPB once over 60 mins; (mix in NS 100 ha1 mL) Route: IVPB; Infused Over: 60 mins; Site: right forearm; 21:10 Follow up: Response: No adverse reaction; IV Status: Completed infusion; IV Intake: ha1 100ml 20:19 Drug: NS 0.9% IV (30 ml/kg) 30 ml/kg IV at bolus once; Sepsis Protocol; to be given as ha1 a bolus over 90 minutes Route: IV; Rate: bolus; Site: right forearm; 10/11 00:00 Follow up: IV Status: Completed infusion [facility] 10/10 21:21 Drug: vancoMYCIN IVPB 1 grams IVPB once over 2 hrs Route: IVPB; Infused Over: 2 hrs; [facility] Site: right forearm; 23:20 Follow up: Response: No adverse reaction; IV Status: Completed infusion; IV Intake: ha1 500ml 10/11 00:50 Follow up: IV Status: Completed infusion; IV Intake: 500ml [facility] 10/10 22:00 Drug: Potassium Chloride IV 20 mEq IV at per protocol once; administer over 1-2 hours ha1 Route: IV; Rate: per protocol; Site: left hand; 10/11 02:58 Follow up: IV Status: Completed infusion; IV Intake: 100ml [facility] 10/10 22:00 Drug: NS 0.9% with KCl IV 20 mEq/L 1000 ml IV at 125 ml/hr continuous Route: IV; Rate: ha1 125 ml/hr; Site: left hand; 10/11 03:00 Follow up: IV Status: Infusion continued upon admission; IV Intake: 450ml [facility] 10/10 22:23 Drug: Silver SulfADIAZINE Topical Cream 1 % 1 application Topical once Route: Topical; ha1 Site: affected area; 23:00 Follow up: Response: No adverse reaction ha1 23:38 Drug: Enoxaparin Sub-Q 1 mg/kg Sub-Q once {Note: RIGHT LOWER QUADRANT.} Route: Sub-Q; ha1 Site: abdomen; 10/11 00:00 Follow up: Response: No adverse reaction rg5 10/10 23:39 Drug: Keppra IV 1000 mg IV at per protocol once Route: IV; Rate: per protocol; Site: ha1 left hand; 10/11 00:00 Follow up: IV Status: Completed infusion rg5 00:00 Follow up: Response: No adverse reaction; IV Status: Completed infusion; IV Intake: ha1 100ml Medication: 02:28 VIS not applicable for this client. rg5 Intake: 10/10 21:10 IV: 100ml; Total: 100ml. ha1 23:20 IV: 500ml; Total: 600ml. ha1 10/11 00:00 IV: 100ml; Total: 700ml. ha1 02:58 IV: 100ml; Total: 800ml. rg5 03:00 IV: 450ml; Total: 1250ml. rg5 Outcome: 10/10 21:50 Decision to Hospitalize by Provider. marian 10/11 00:00 Admitted to ER Hold. Please see [facility] for further documentation. rg5 Condition: stable 00:00 Instructed on the need for admit, rg5 02:56 Patient left the ED. rg5 NIH Stroke Scale - NIH Stroke Score Date: 10/10/2024 Time: 20:34 Total Score = 0 10. Dysarthria (speech clarity - read or repeat words) - 0(Normal) 11. Extinction and Inattention (visual/tactile/auditory/spatial/personal) - 0(No abnormality) 1a. Level of Consciousness (LOC) - 0(Alert) 1b. Level of Consciousness (LOC) (Month \T\ Age) - 0(Both) 1c. LOC Commands (Open \T\ Closes Eyes/Vocational Rehabilitation Counselor) - 0(Both) 2. Best Gaze (Lateral Gaze Paresis) - 0(Normal) 3. Visual Field Loss - 0(No visual loss) 4. Facial Palsy - 0(Normal) 5a. Left Arm: Motor (10-second hold) - 0(No drift) 5b. Right Arm: Motor (10-second hold) - 0(No drift) 6a. Left Leg: Motor (5-second hold - always test supine) - 0(No drift) 6b. Right Leg: Motor (5-second hold - always test supine) - 0(No drift) 7. Limb Ataxia (finger/nose \T\ heel/lopez - test with eyes open) - 0(Absent) 8. Sensory Loss (pinprick arms/legs/face) - 0(Normal) 9. Best Language: Aphasia (description/naming/reading) - 0(No aphasia) Initials: marian Signatures: Dispatcher [employer] EDJac Suárez MD MD cha Ayala, Heidy RN RN ha1 Jean Graff RN RN rg5 Eneida Anderson RN RN [email or web address] Sultan Margaret 1 Corrections: (The following items were deleted from the chart) 10/10 23:43 23:38 Enoxaparin Sub-Q 76.66 mg Sub-Q in abdomen ha1 ha1 10/11 06:38 00:00 IV Status: Completed infusion rg5 ha1 06:39 00:50 IV Status: Completed infusion; IV Intake: 500ml rg5 ha1
--- NOTE | 2024-10-10 22:12 | RAD REPORT ---
EXAM: Chest Abdomen Pelvis W Cont CLINICAL INDICATION: Chest and abdominal pain TECHNIQUE: CT chest, abdomen and pelvis was performed, with 100 cc Isovue-300 IV contrast, as per de partment protocol. Axial, sagittal and coronal reconstructions were obtained. One or more of the following dose reduction techniques were used: Automated exposure control, adjustment of the mA and/o r kV according to the patient size, and/or iterative reconstruction. Unless otherwise specified, incidental findings do not require dedicated imaging follow-up. [id number]. Oral contrast not given. This limits evaluation of the bowel. COMPARISON: 2023 FINDINGS: There is subsegmental atelectasis within the right base. The left lung is clear. Median sternotomy with nonunion. No mediastinal hematoma noted No pleural effusion.. No pericardial effusion Liver, spleen, pancreas, adrenals, kidneys and bladder appear Cholelithiasis. Gallbladder wall is not seen. Chronic dilatation of the colon. Sigmoid measures 13 cm. The ascending and transverse colon are dilat ed to a lesser degree. Small bowel caliber normal. Mild prostatic enlargement IMPRESSION: Patient has a pseudocolonic obstruction. Sigmoid colon measures 14 cm
--- NOTE | 2024-10-10 22:15 | RAD REPORT ---
Procedure: Chest Single View HISTORY: Cough COMPARISON: July 2024 FINDINGS: The lungs appear clear of acute infiltrate. No significant pleural effusion noted. The heart is normal size. Post surgical changes involve the chest IMPRESSION: No acute abnormality is displayed.
--- NOTE | 2024-10-10 22:16 | P.HP ---
Certification for Inpatient With expected LOS: >2 Midnights Patient will require the following post-hospital care: None Practitioner: I am a practitioner with admitting privileges, knowledge of patient current condition, hospital course, and medical plan of care. Services: Services provided to patient in accordance with Admission requirements found in Title 42 Section 412.3 of the Code of Federal Regulations Patient History Date of Service: 10/10/24 Reason for admission: Abdominal distention History of Present Illness: 69-year-old [facility] resident at [facility] [facility] with past medical history of HTN, DM, Dementia, schizoaffective disorder, CVA with right-sided weakness, speech disturbance with dysphagia, history of seizure disorder who was brought in by EMS after patient was noted to be having increasing abdominal distention since the last 2 days. He has also not had any bowel movement since the last 2 days. No reported diarrhea prior to onset of symptoms. Patient was also noted to have recurrent fevers. No other complaint elicited from patient. correction has also noticed a wound over the right great toe that has been nonhealing. No reported recent antibiotics use. On arrival in the ED he had a temp of 100.4 blood pressure of 140 over 70s, laboratory workup showed WBC of 14.4 BMP was unremarkable except for potassium of 2.9, CRP elevated at 45, x-ray of the right foot shows evidence of no acute fracture. Chest x-ray shows no acute infiltrate. Troponin was elevated at 65. CT of the abdomen shows massive megacolon with acute perforation. Surgery was discussed with and recommended hospitalization and further monitoring. Allergies No Known Allergies Allergy (Verified 06/10/24 02:45) Home Medications: Atorvastatin Calcium 40 mg PO DAILY 05/31/21 Clopidogrel Bisulfate [Plavix] 75 mg PO DAILY 05/31/21 Furosemide [Lasix] 20 mg PO DAILY 05/31/21 Insulin Glargine,Hum.rec.anlog [Lantus] 26 unit SQ BID 05/31/21 Metoprolol Tartrate 50 mg PO BID 05/31/21 Acetaminophen [Tylenol] 650 mg PO Q4HP PRN 05/20/24 Amlodipine [Norvasc*] 5 mg PO DAILY 05/20/24 Aripiprazole [Abilify] 5 mg PO DAILY 05/20/24 Aspirin 325 mg PO DAILY 05/20/24 Divalproex [Depakote Sprinkle*] 3 cap PO BID 05/20/24 Gabapentin [Neurontin*] 100 mg PO DAILY 05/20/24 Omeprazole 20 mg PO DAILY 05/20/24 Potassium Chloride 20 meq PO DAILY 05/20/24 Rivastigmine Tartrate [Rivastigmine] 1.5 mg PO BID 05/20/24 Sertraline HCl 50 mg PO DAILY 05/20/24 Sitagliptin Phosphate [Januvia] 100 mg PO DAILY 05/20/24 levETIRAcetam [Keppra] 7.5 ml PO BID 05/20/24 Petrolatum 41% Oint [Aquaphor] 1 raysa TOP BID PRN jar 05/25/24 Lactulose 30 ml PO Q12HP PRN 06/10/24 Levothyroxine Sodium 125 mcg PO DAILY 06/10/24 Acidophilus/Bulgaricus [Lactinex Packet] 1 each PO DAILY 15 Days #15 packet 08/02/24 Ciprofloxacin HCl [Cipro 500 MG Tablet] 500 mg PO BID 6 Days #12 tab 08/02/24 metroNIDAZOLE [Flagyl*] 500 mg PO Q8H 6 Days #18 tab 08/02/24 - Past Medical/Surgical History Diabetic: Yes -: cva residual right-sided weakness -: Depressive disorder -: gallstones -: diabetic retinopathy -: depression -: thyroid disease -: siezures -: CAD -: Diabetes mellitusIDDM -: Schizophrenia -: Speech disturbances -: Dimension -: CABG -: thyoidectomy -: right 5th toe amputation -: BLE stents - Social History Alcohol use: No CD- Drugs: No Caffeine use: No Physical Examination - Physical Exam General: In no apparent distress, Oriented x2, Confused HEENT: Atraumatic, Normocephalic, PERRLA Neck: Supple, 2+ carotid pulse no bruit, JVD not distended Respiratory: Clear to auscultation bilaterally, Normal air movement Cardiovascular: Normal pulses, Regular rate/rhythm, Normal S1 S2 Gastrointestinal: No ascites, No tenderness, Distended Musculoskeletal: No clubbing, Swelling Integumentary: Diabetic ulcer (right great toe plantar surface , large callus over lateral left foot margin) Neurological: Normal speech, Normal strength at 5/5 x4 extr, Normal tone, Sensation intact, Cranial nerves 3-12 intact - Studies Laboratory Data (last 24 hrs) 0110/10/24 10/10/24 20:05 20:05 20:05 WBC 14.40 H Hgb 10.2 L Hct 30.7 L Plt Count 219 PT 13.9 H INR 1.33 Sodium 138 Potassium 2.9 L BUN 24 H Creatinine 1.01 Glucose 255 H Magnesium 2.1 Total Bilirubin 0.8 AST < 10 L ALT < 14 L Alkaline Phosphatase 62 Lipase 19 Microbiology Data (last 24 hrs): 10/10/24 19:50 Nasopharnyx Influenza Type A Antigen Screen - Final 10/10/24 19:50 Nasopharnyx Influenza Type B Antigen Screen - Final Assessment and Plan - Problems (Diagnosis) (1) Hypertension Current Visit: No Status: Acute (2) Hypothyroidism Current Visit: No Status: Acute (3) Megacolon, acquired, functional Current Visit: No Status: Acute - Plan Impression and plan Right foot cellulitisfirst toe ulcer left foot callus Toxic megacolon with salazar colitis Hypokalemia Elevated troponin-likely demand mediated Hypertension History of DM History of CVA with dysphagia History of dementia History of seizure safety disorder Plan Will admit patient to inpatient Start gentle IV fluid with LR Replace potassium Follow magnesium level Start empirical antibiotics with cefepime and Vanco for both toxic megalcolon and foot cellultiis Keep Vanco trough less than [address] of the right foot to rule out osteomyelitis Wound care for both right foot fifth digit ulcer as well as left foot margin callus General Surgery consult in a.m. May need decompressive colonoscopy Will place rectal tube today to help with decompressing the colon N.p.o. for now Elevated troponin may be demand mediated, start aspirin Follow serial sets Insulin sliding scale with Accu-Cheks Antipyretics for fever Continue Ativan as needed for schizoaffective disorder DVT prophylaxis with Lovenox Monitor WBC trend Possible hospital stay for 48 hours or more Discharge Plan: Home - Advance Directives Does patient have a Living Will: No Does patient have a Durable POA for Healthcare: Yes Physician Review: Patient Assessed, Agree with Above Assessment and Plan Time Spent Managing Pts Care (In Minutes): 75
[2024-10-10] MEDS ORDERED: ALBUTEROL 2.5 MG/3 ML NEB SOL NEB PRN (22:18)
[2024-10-10] MEDS: ASPIRIN EC 81 MG TAB PO SCH (22:21)
[2024-10-10] MEDS ORDERED: ENOXAPARIN 80 MG/0.8 ML SQ ONE (23:25)
[2024-10-10] MEDS ORDERED: LEVETIRACETAM 500 MG/5 ML VIAL IV ONE (23:25)
[2024-10-11] MEDS: INSULIN REGULAR (HUMAN) 100 UNIT/ML SQ SCH
[2024-10-11 00:49] VITALS: BMI 24.9
[2024-10-11 00:50] LABS: Sqamous Epithelial None Seen /HPF (None Seen); Urine Bacteria None Seen /HPF (<20); Urine Bilirubin NEGATIVE (Negative); Urine Blood Negative (Negative); Urine Clarity Clear (Clear); Urine Color Light-Yellow (Yellow); Urine Crystals Unidentified Few /HPF (None Seen); Urine Culture Reflex Order NOT NEEDED; Urine Glucose 4+ (Over) (Negative); Urine Ketones TRACE (Negative); Urine Microscopic Reflex YN ORDER UMIC; Urine Mucus Slight /HPF (None Seen); Urine Nitrite NEGATIVE (Negative); Urine Protein TRACE (Negative); Urine RBC <5 /HPF (None Seen); Urine Urobilinogen Normal (Normal); Urine WBC <5 /HPF (<5)
[2024-10-11 00:51] LABS: Specific Gravity > 1.030 (1.005-1.030)
[2024-10-11] MEDS ORDERED: NA CHLORIDE 0.9% 250 ML ONE (01:21)
[2024-10-11] MEDS ORDERED: VANCOMYCIN 500 MG/VIAL ONE (01:21)
[2024-10-11] MEDS ORDERED: Ringers Lactate 1,000 ML IV ONE (01:22)
[2024-10-11] MEDS: Ringers Lactate 1,000 ML IV SCH (01:23)
[2024-10-11] MEDS: VANCOMYCIN 500 MG in NA CHLORIDE 0.9% 250 ML IVPB ONE (01:23)
[2024-10-11 06:18] LABS: Urine Bilirubin NEGATIVE (Negative); Urine Blood Negative (Negative); Urine Clarity Clear (Clear); Urine Color Light-Yellow (Yellow); Urine Glucose 3+ (Negative); Urine Ketones NEGATIVE (Negative); Urine Microscopic Reflex YN NO UMIC; Urine Nitrite NEGATIVE (Negative); Urine Protein NEGATIVE (Negative); Urine Urobilinogen Normal (Normal)
[2024-10-11 06:20] LABS: Specific Gravity > 1.030 (1.005-1.030)
[2024-10-11] MEDS ORDERED: ALBUTEROL 2.5 MG/3 ML NEB SOL NEB PRN (07:42)
[2024-10-11] MEDS: FLU (Fluarix Triv) TS24-25(6MOS UP)/PF 45 MCG/0.5 ML Syringe IM ONE (07:45)
[2024-10-11] MEDS: PNEUMOCOCCAL VACCINE 0.5 ML IMVAC ONE (08:00)
[2024-10-11 08:15] LABS: Absolute Eosinophils 0.1 K/uL (0-0.5); Absolute Lymphocytes (CBC) 0.6 K/uL (0.7-4.9); Absolute Monocytes 1.3 K/uL (0.1-1.3); Absolute Neutrophil 8.2 K/uL (1.8-8.0); Basophils % 0.4 % (0-1.3); Hematocrit 30.3 % (39.6-49.0); Hemoglobin 10.5 g/dL (13.6-17.9); Lymphocytes % 6.1 % (15.3-44.8); MCH 28.3 pg (27.0-35.0); MCHC 34.6 g/dL (32.0-36.0); MCV 81.7 fL (80-100); MPV 7.8 fL (7.6-11.3); Monocytes % 13.1 % (3.3-12.3); Neutrophils % 79.4 % (41.7-73.7); Nucleated Red Blood Cells % 0.1 % (0-0); Platelets 178 thou/uL (152-406); RBC Red Blood Cell Count 3.71 M/uL (4.33-5.43); Red Cell Distribution Width 16.4 % (12.1-15.2)
[2024-10-11 08:53] LABS: ALT/SGPT < 14 U/L (16-61); AST/SGOT < 10 U/L (15-37); Albumin 2.4 g/dL (3.4-5.0); Albumin/Globulin Ratio 0.7 (1.1-1.8); Alkaline Phosphatase 50 U/L (45-117); Anion Gap 7.6 mEq/L (5.0-15.0); BUN Blood Urea Nitrogen 16 mg/dL (7-18); Bicarbonate 28 mEq/L (21-32); Bilirubin Total 0.9 mg/dL (0.2-1.0); Globulin 3.4 g/dL (2.3-3.5); Glomerular Filtration Rate 107 ml/min (=/>90); Glucose Level 94 mg/dL (74-106); Protein, Total 5.8 g/dL (6.4-8.2); Sodium Level 143 mEq/L (136-145)
[2024-10-11 08:56] LABS: Potassium 2.6 mEq/L (3.5-5.1)
[2024-10-11] MEDS: HEPARIN 5000 UNIT/ML 1 ML VIAL SQ SCH (10:00)
[2024-10-11] MEDS: CEFEPIME 1 GM in NA CHLORIDE 0.9% 100 ML IV SCH (10:00)
[2024-10-11] MEDS: FAMOTIDINE 20 MG/2 ML VIAL IV SCH (10:00)
[2024-10-11] MEDS: ENOXAPARIN 40 MG/0.4 ML SQ SCH (10:00)
[2024-10-11] MEDS: ASPIRIN 325 MG TAB PO SCH (10:05)
[2024-10-11] MEDS ORDERED: D10W 125 ML IV PRN (10:56)
[2024-10-11] MEDS ORDERED: GLUCAGON 1 MG/VIAL IM PRN (10:56)
[2024-10-11] MEDS: MORPHINE 2 MG/ML SYR IV PRN (11:24)
[2024-10-11] MEDS: POTASSIUM CL 40 MEQ in NA CHLORIDE 0.9% 500 ML IV SCH (14:38)
--- NOTE | 2024-10-11 14:54 | P.PN ---
Subjective Date of Service: 10/11/24 Chief Complaint: Abdominal distention Patient complaining of pain in the right great toe. He denies any constipation or diarrhea. Patient's abdomen is chronically distended. No recorded fever. Physical Examination - Vital Signs Temperature: 98.2 F Blood Pressure: 148/70 Pulse: 84 Respirations: 12 Pulse Ox (%): 100 - Studies Laboratory Data (last 24 hrs) 10/10/24 10/10/24 10/10/24 20:05 20:05 20:05 WBC 14.40 H Hgb 10.2 L Hct 30.7 L Plt Count 219 PT 13.9 H INR 1.33 Sodium 138 Potassium 2.9 L BUN 24 H Creatinine 1.01 Glucose 255 H Magnesium 2.1 Total Bilirubin 0.8 AST < 10 L ALT < 14 L Alkaline Phosphatase 62 Lipase 19 Microbiology Data (last 24 hrs): 10/10/24 19:50 Nasopharnyx Influenza Type A Antigen Screen - Final 10/10/24 19:50 Nasopharnyx Influenza Type B Antigen Screen - Final Assessment And Plan - Plan Physical examination General: Alert and oriented x 2, NAD, HEENT: Conjunctiva not pale, anicteric sclera Neck: Supple, no elevated JVD Heart: Heart sounds 1 and 2 normal, regular rhythm, normal rate, no pedal edema Lungs: Clear to auscultation bilaterally, adequate breath sounds bilaterally, no rhonchi or crackles. Abdomen: Soft, distended, nontender, normal bowel sounds. Extremities: No tenderness, no deformity Skin: Normal skin turgor, right great toe with necrotic ulcer at callus at the medial edge. Neuro: No focal motor deficit. Normal speech. Psychiatry: Normal mood, no agitation. Diagnosis Right foot toe necrotic ulcer with cellulitis left foot callus Delmy syndrome Hypokalemia Elevated troponin-likely demand mediated Hypertension Diabetes mellitus type 2 History of CVA with dysphagia History of dementia History of seizure disorder Plan: Right foot toe necrotic ulcer with cellulitis left foot callus Continue current antibiotic General Surgery Dr. Flores consulted to evaluate for possible I&D and debridement. Broad-spectrum antibiotics-IV vancomycin and cefepime. Analgesics as needed. Deep tissue wound culture during excisional debridement. [place] syndrome Hypokalemia Patient with chronic colonic dilatation. No major changes. Patient denies diarrhea or constipation. Optimize electrolytes. Correct potassium Serial abdominal examination. Elevated troponin Patient is asymptomatic. This is likely secondary to demand ischemia. DM type II Insulin sliding scale for glucose management Essential hypertension Resume home medications Hydralazine as needed for BP spikes. History of CVA Dementia History of seizure disorder Continue home medications. DVT prophylaxis: Lovenox. Advanced directive: Full code.
[2024-10-11] MEDS ORDERED: HOME MED 1 EA UNK (Lactulose [Lactulose] 10 GM/15 ML Solution) PO PRN (15:16)
[2024-10-11] MEDS ORDERED: LACTULOSE 20 GM/30 ML UCUP PO PRN (15:32)
[2024-10-11] MEDS: VANCOMYCIN 1.5 GM in NA CHLORIDE 0.9% 500 ML IVPB SCH (18:49)
[2024-10-11] MEDS: DIVALPROEX NA 125 MG CAP PO SCH (21:00)
[2024-10-11] MEDS: METOPROLOL TAR 25 MG TAB PO SCH (21:00)
[2024-10-11] MEDS: levETIRAcetam 500 MG/5 ML OSYR PO SCH (21:00)
[2024-10-11] MEDS: ATORVASTATIN 40 MG TAB PO SCH (21:00)
[2024-10-11] MEDS: RIVASTIGMINE TARTRATE 1.5 MG PO SCH (21:00)
[2024-10-11] MEDS: ARIPiprazole 5 MG TAB PO SCH (21:00)
[2024-10-12] MEDS ORDERED: LEVOTHYROXINE SODIUM 125 MCG PO SCH (06:00)
[2024-10-12] MEDS: LEVOTHYROXINE SOD 0.125 MG TAB PO SCH (06:00)
[2024-10-12 06:22] LABS: Absolute Basophils 0.1 K/uL (0-0.5); Absolute Lymphocytes (CBC) 0.5 K/uL (0.7-4.9); Absolute Monocytes 1.3 K/uL (0.1-1.3); Absolute Neutrophil 7.7 K/uL (1.8-8.0); Eosinophils % 0.5 % (0-4.4); Hematocrit 28.5 % (39.6-49.0); Hemoglobin 9.9 g/dL (13.6-17.9); Lymphocytes % 5.3 % (15.3-44.8); MCHC 34.7 g/dL (32.0-36.0); MCV 80.8 fL (80-100); MPV 7.6 fL (7.6-11.3); Monocytes % 13.3 % (3.3-12.3); Neutrophils % 79.9 % (41.7-73.7); Platelets 184 thou/uL (152-406); RBC Red Blood Cell Count 3.53 M/uL (4.33-5.43); Red Cell Distribution Width 16.4 % (12.1-15.2)
[2024-10-12 06:45] LABS: Anion Gap 10.9 mEq/L (5.0-15.0); Potassium 2.9 mEq/L (3.5-5.1)
[2024-10-12] MEDS: PANTOPRAZOLE 40MG TABLET PO SCH (07:30)
[2024-10-12] MEDS ORDERED: HOME MED 1 EA UNK (Omeprazole [Omeprazole] 20 MG Tablet.Dr) PO SCH (09:00)
[2024-10-12] MEDS: POTASSIUM CL SA 10 MEQ TAB PO SCH (09:00)
[2024-10-12] MEDS: FUROSEMIDE 20 MG TABLET PO SCH (09:00)
[2024-10-12] MEDS: ALOGLIPTIN BENZOATE 12.5 MG TABLET PO SCH (09:00)
[2024-10-12] MEDS ORDERED: LACTOBACILLUS COMBINATION NO 4 PO SCH (09:00)
[2024-10-12] MEDS ORDERED: HOME MED 1 EA UNK (Potassium Chloride [Potassium Chloride] 20 MEQ Tablet.Er) PO SCH (09:00)
[2024-10-12] MEDS ORDERED: HOME MED 1 EA UNK (Sitagliptin Phosphate [Januvia] 50 MG Tablet) PO SCH (09:00)
[2024-10-12] MEDS: LACTOBACILLUS/ACIDOPHILUS TAB PO SCH (09:00)
[2024-10-12] MEDS: CLOPIDOGREL 75 MG TABLET PO SCH (09:00)
[2024-10-12] MEDS: GABAPENTIN 100 MG CAP PO SCH (09:00)
[2024-10-12] MEDS: SERTRALINE HCL 50 MG TAB PO SCH (09:24)
[2024-10-12] MEDS: KCL 20 MEQ/100 mL IVPB 20 MEQ/100 ML BAG IV SCH (10:23)
--- NOTE | 2024-10-12 12:38 | P.PN ---
Subjective Date of Service: 10/12/24 Chief Complaint: Abdominal distention Patient has no new complain. He denies any constipation or diarrhea. Patient's abdomen is chronically distended. No recorded fever. Physical Examination - Vital Signs Temperature: 98.4 F Blood Pressure: 158/63 Pulse: 65 Respirations: 16 Pulse Ox (%): 97 Assessment And Plan - Plan Physical examination General: Alert and oriented x 2, NAD, HEENT: Anicteric sclera Heart: Heart sounds 1 and 2 normal, regular rhythm, normal rate, no pedal edema Lungs: Clear to auscultation bilaterally, adequate breath sounds bilaterally, no rhonchi or crackles. Abdomen: Soft, distended, nontender, normal bowel sounds. Extremities: No tenderness, no deformity Skin: Normal skin turgor, right great toe with necrotic ulcer at callus at the medial edge. Neuro: No focal motor deficit. Normal speech. Psychiatry: Normal mood, no agitation. Diagnosis Right foot toe necrotic ulcer with cellulitis left foot callus [place] syndrome Hypokalemia Elevated troponin-likely demand mediated Hypertension Diabetes mellitus type 2 History of CVA with dysphagia History of dementia History of seizure disorder Plan: Right foot toe necrotic ulcer with cellulitis left foot callus General Surgery Dr. Flores planning I&D and debridement. Family could not be reached for consent today as per Dr. Flores. Continue broad-spectrum antibiotics-IV vancomycin and cefepime. Analgesics as needed. Deep tissue wound culture during excisional debridement. Delmy syndrome Hypokalemia Patient with chronic colonic dilatation. No major changes. Patient denies diarrhea or constipation. Optimize electrolytes. Correct potassium as needed. Serial abdominal examination. Elevated troponin Patient is asymptomatic. This is likely secondary to demand ischemia. DM type II Insulin sliding scale for glucose management Essential hypertension Continue home medications Hydralazine as needed for BP spikes. History of CVA Dementia History of seizure disorder Continue home medications. DVT prophylaxis: Lovenox. Advanced directive: Full code.
[2024-10-12] MEDS: HYDRALAZINE HCL 20 MG/ML VIAL IV PRN (16:48)
[2024-10-13] MEDS: VANCOMYCIN 500 MG/VIAL ONE (05:17)
[2024-10-13] MEDS: NA CHLORIDE 0.9% 500 ML ONE (05:17)
--- NOTE | 2024-10-13 06:56 | P.PN ---
Date of Service: 10/13/24 Subjective: no acute events overnight agreeable to surgery feeling better today afebrile ROS: 10 point ROS as noted above, otherwise negative Physical Exam: GEN: Alert, NAD CV: Regular rate and rhythm, no edema Pulm: Nonlabored respirations on room air, clear bilaterally ABD: soft, nontender, nondistended Integumentary: Right great toe with necrotic ulcer at the medial edge Neuro: Normal speech, No focal motor deficit Problem List: Right foot toe necrotic ulcer with cellulitis Left foot callus Delmy syndrome Hypokalemia Elevated troponin - suspect demand ischemia Hypertension Dementia Seizure disorder IDDM2 Hx of CVA with dysphagia Right foot toe necrotic ulcer with cellulitis left foot callus xray right foot (10/10): no fractures or dislocations. Calcaneal spurs. Venous u/s (10/10): no DVT Dr. Flores, general surgery consulted Family could not be reached for consent yesterday for surgery NPO for tentative I&D today. continue empiric cefepime / vanc (10/11-) pain control follow blood / wound cultures Dlemy syndrome Hypokalemia CT abdomen (10/10): Chronic dilatation of the colon. Mild prostatic enlargement. Patient with chronic colonic dilatation. Patient denies diarrhea or constipation. Monitor and replete electrolytes as needed Serial abdominal exams Elevated troponin - suspect demand ischemia Initial troponin mildly elevated. Suspect demand ischemia. Patient is asymptomatic. no further work up. IDDM2 accu-cheks, SSI confirm home insulin regimen Hypertension Dementia Seizure disorder Hx of CVA with dysphagia confirm home meds, restart as appropriate VTE: Lovenox on hold for surgery Code: Full Dispo: Home, ~1-2 days Pending surgery / recovery, cultures Time Spent Managing Pts Care (In Minutes): 55
[2024-10-13 08:11] LABS: Hematocrit 28.6 % (39.6-49.0); Hemoglobin 9.8 g/dL (13.6-17.9); MCH 27.9 pg (27.0-35.0); MCHC 34.2 g/dL (32.0-36.0); MCV 81.7 fL (80-100); MPV 7.1 fL (7.6-11.3); Platelets 208 thou/uL (152-406); Red Cell Distribution Width 16.3 % (12.1-15.2)
[2024-10-13 08:17] LABS: Anion Gap 5.8 mEq/L (5.0-15.0); Magnesium 2.1 mg/dL (1.6-2.4); Potassium 2.8 mEq/L (3.5-5.1)
[2024-10-13] MEDS: KCL 20 MEQ/100 mL IVPB 20 MEQ/100 ML BAG IV SCH (08:41)
[2024-10-13] MEDS ORDERED: propofoL 200 MG/20 ML VIAL IV ONE (12:42)
[2024-10-13] MEDS ORDERED: FENTANYL CITR 100 MCG/2 ML ONE (12:43)
[2024-10-13] MEDS ORDERED: ONDANSETRON 4 MG/2 ML VIAL ONE (12:43)
[2024-10-13] MEDS ORDERED: LIDOCAINE 1% MPF 5 ML VIAL ONE (12:43)
[2024-10-13] MEDS ORDERED: MIDAZOLAM HCL 2 MG/2 ML INJ ONE (13:10)
[2024-10-13] MEDS ORDERED: EPHEDRINE SULF 50 MG/ML VIAL ONE (13:43)
[2024-10-13] MEDS: LIDOCAINE HCL/EPINEPHRINE 20 ML MDV ONE (13:56)
--- NOTE | 2024-10-13 14:09 | P.OP ---
Preoperative diagnosis: RIGHT Great Toe Wound Postoperative diagnosis: RIGHT Great Toe Wound Primary procedure: Debridment of RIGHT Great Toe Wound Anesthesia: GETA +Local Estimated blood loss: <1cc Specimen: Debridement Tissue, Cultures Findings: Necrosis and abscess of Great Toe Complications: None Transferred to: Recovery Room Condition: Good
[2024-10-13] MEDS: INSULIN REGULAR (HUMAN) 100 UNIT/ML SQ SCH (16:25)
[2024-10-13] MEDS: LORazepam 2 MG/ML VIAL IV PRN (19:16)
[2024-10-14] MEDS: VANCOMYCIN 1.5 GM in NA CHLORIDE 0.9% 500 ML IVPB SCH (00:54)
--- NOTE | 2024-10-14 01:45 | OP ---
Date of Procedure: 10/13/2024 Surgeon: Mc Flores MD, Preoperative Diagnosis: Right great toe infected wound. Postoperative Diagnosis: Right great toe infected wound. Procedure: Debridement of right great toe infected wound. Anesthesia: General endotracheal plus local 1% lidocaine with epinephrine. Estimated Blood Loss: 1 cc. Specimens: Debridement tissue and culture sent for both aerobic and anaerobic speciation. Findings: There was necrosis and abscess extending to the fascia overlying the bone of the great toe on the lateral aspect of the toe. Abscess material was encountered. This was cultured at this time . There was necrosis in this area. Complications: None. Disposition: The patient was transferred to recovery room in good condition. Procedure In Detail: After informed consent was obtained, patient was brought to the operating room, prepped and draped in the usual sterile fashion. After adequate anesthesia was achieved, anesthetiz ed the area of the right great toe circumferentially down through an area of obvious discoloration, n ecrosis, and infection. I opened this in a circumferential fashion, debriding all nonviable tissue d own to the fascia overlying the bone. All nonviable tissue was removed. The area was copiously irri gated. Hemostasis was not required with any electrocautery. At this point, due to the minimal blood flow to this vicinity, I then proceeded to curette the area. Culture was sent for both aerobic and anaerobic speciation and I ultimately cleansed the area down to viable tissue. At this point, the ar ea was copiously irrigated once again and wrapped with Vashe-soaked gauze and a sterile dressing was placed over top. The patient tolerated the procedure well without incident or complication, transfer red to PACU in good condition. All counts were correct at the end of the case. LILIA/YUNIORL Voice ID: [id number] Report ID: [id number]
[2024-10-14 05:36] LABS: Hematocrit 28.8 % (39.6-49.0); Hemoglobin 9.9 g/dL (13.6-17.9); MCHC 34.4 g/dL (32.0-36.0); MCV 81.5 fL (80-100); MPV 7.4 fL (7.6-11.3); Platelets 225 thou/uL (152-406); RBC Red Blood Cell Count 3.54 M/uL (4.33-5.43); Red Cell Distribution Width 15.9 % (12.1-15.2)
[2024-10-14 06:01] LABS: Magnesium 2.1 mg/dL (1.6-2.4)
[2024-10-14] MEDS: POTASSIUM 25 MEQ EFFERV TAB PO ONE ×2 (06:28→16:27)
--- NOTE | 2024-10-14 11:24 | P.PN ---
Date of Service: 10/14/24 Subjective: confused overnight this morning, calm, resting, arousable denies any worsening issues s/p I&D yesterday ROS: 10 point ROS as noted above, otherwise negative Physical Exam: GEN: Alert, NAD CV: Regular rate and rhythm, no edema Pulm: Nonlabored respirations on room air, clear bilaterally ABD: soft, nontender, nondistended Integumentary: Right great toe with surgical dressing in place Problem List: Right great toe abscess with necrosis, now s/p I&D (10/13) Left foot callus [place] syndrome Hypokalemia Elevated troponin - suspect demand ischemia Hypertension Dementia Seizure disorder IDDM2 Hx of CVA with dysphagia Right great toe abscess with necrosis, now s/p I&D (10/13) Left foot callus xray right foot (10/10): no fractures or dislocations. Calcaneal spurs. Venous u/s (10/10): no DVT Dr. Flores, general surgery consulted s/p I&D (10/13); found to have necrotic tissue, +abscess of great toe. continue empiric cefepime / vanc (10/11-) wound care per surgery Blood cx (10/10): NGTD Wound cx (10/13): 4+ GNR Dr. Henry, vascular consulted to eval pain control [place] syndrome Hypokalemia CT abdomen (10/10): Chronic dilatation of the colon. Mild prostatic enlargement. Patient with chronic colonic dilatation. Patient denies diarrhea or constipation. Monitor and replete electrolytes as needed Serial abdominal exams Elevated troponin - suspect demand ischemia Initial troponin mildly elevated. Suspect demand ischemia. Patient is asymptomatic. no further work up. IDDM2 Accu-cheks, SSI confirm home insulin regimen Hypertension Dementia Seizure disorder Hx of CVA with dysphagia confirm home meds, restart as appropriate VTE: Lovenox Code: Full Dispo: [facility] ~2 days Pending surgery / recovery, cultures Time Spent Managing Pts Care (In Minutes): 55
--- NOTE | 2024-10-14 12:41 | EKG ---
Test Date: 2024-10-10 Test Time: 21:06:48 Sanitation Superintendent: MEASUREMENT RESULTS: Intervals: Rate: 85 MA: 168 QRSD: 100 QT: 386 QTc: 459 [place]: P: 63 MA: 168 QRS: 52 T: -3 INTERPRETIVE STATEMENTS: Normal sinus rhythm Inferior infarct, age undetermined Abnormal ECG Compared to ECG 08/06/2024 14:59:16 No significant changes Electronically Signed On 10-14-24 12:34:59 ELECTRICAL INSTRUMENT REPAIRER by Faustino Hernández
--- NOTE | 2024-10-14 14:23 | RAD REPORT ---
EXAMINATION: US Lower Extremity Artery Uni Ltd CLINICAL INDICATION: Male, 69 years old. [facility] right foot wound peripheral artery disease TECHNIQUE: Arterial duplex ultrasound was performed of the Right lower extremity with real-time, colo r-flow, and spectral wave Doppler evaluation. COMPARISON: No prior exam. FINDINGS: Mild plaque throughout the evaluated arterial system. Triphasic waveforms seen along the right common femoral artery. Monophasic waveforms are seen throughout the remainder of the evaluated Right lower extremity arterial system, to the level of the dorsalis pedis artery. No other suspicious findi ngs. IMPRESSION: Moderate peripheral vascular disease throughout most of the right lower extremity.
--- NOTE | 2024-10-14 17:45 | P.PN ---
Date of Service: 10/14/24 CC Leg wound, pain History of Present Illness Patient has a long-standing history of peripheral artery disease and also history of right leg wound. I have been treating his peripheral artery disease since 2020. The patient has significant atherosclerotic risk factors. He has a history of hypertension as well as diabetes. He has a history of elevated cholesterol. He denies smoking. He has a history of coronary artery disease and had quadruple coronary bypass in September 2020. He had a stroke in September 2020. He has a history of seizures as well as hypothyroidism. He has had debridement of his great toe. Today, the toe is cyanotic. Arterial ultrasound demonstrates monophasic waveforms in the right superficial femoral, anterior tibial and posterior tibial arteries. Given monophasic wave forms, recommend treatment with catheter arteriogram and revascularization. I have previously discussed this with him and his family as a n outpatient. I have again discussed the procedure with him and his daughter over the phone. Given cyanosis to the great toe, there is high likelihood that he may need amputation. However, he will need revascularization to let the amputation margin heal. ROS Constitutional: (-)fever, (-)night sweats, (-)chills, (-)cold intolerance, (+)fatigue, (-)daytime somnelence, (-)weight gain, (-)weight loss, (- )polydipsia, (-)polyphagia, (-)anorexia Eyes: (-)change in vision, (-)loss of vision, (-)blurred vision, (-)diplopia, (- )eye redness, (-)eye pain Ears: (-)difficulty hearing, (+)hearing loss, (-)ear pain/ear ache, (-)ear drainage Nose: (-)nasal congestion, (-)nasal discharge, (-)epistaxis, (-)sneezing, (+)snoring Mouth/Throat/Voice: (-)lip sores, (-)mouth sores, (-)tongue sores, (-)sore thro at, (-)dysphagia, (-)odynophagia, (-)gum bleeding, (-)dental problems Neck: (-)neck pain, (-)neck stiffness, (-)neck lumps Respiratory: (-)dyspnea, (-)cough, (-)cough productive of sputum, (-)hemoptysis Cardiovascular: (-)chest pain, (-)palpitations, (-)dyspnea at rest, (-)dyspnea with activity, (-)orthopnea, (-)paroxysmal nocturnal dyspnea, (-)lower extremity edema, (+)varicosities Gastrointestinal: (-)abdominal pain, (-)rectal pain, (+)nausea, (+)vomiting, (- )vomiting blood, (-)flatulence, (-)decreased frequency of bowel movements, (- )constipation, (-)increased frequency of bowel movements, (-)diarrhea, (-)fecal incontinence Dermatologic/Integumentary: (-)change in hair texture, (+)change in skin texture, (-)change in nail appearance, (-)dry hair, (-)brittle hair, (-)hair loss, (-)dry skin, (-)itching, (-)hives, (-)rash, (-)bruising, (-)new mole(s), (+)skin sores Musculoskeletal: (-)muscle pain, (-)back pain, (-)tender points, (-)muscle cramps, (+)muscle weakness, (+)decreased muscle strength, (-)limb paralysis, (+)difficulty walking, (-)limp Neurological: (-)headaches, (-)vertigo, (-)lightheadedness, (-)fainting, (- )blackout(s), (+)numbness, (+)tingling, (-)tremor, (+)lack of coordination, (+)weakness, (+)difficulty speaking, (+)memory loss, (+)difficulty concentrating Psychiatric: (-)change in mood, (+)depression, (-)sadness interfering with function, (-)anxiety, (-)nervousness, (-)sleep disturbance, (-)suicidal ideation Allergy/AdvReac Type Severity Reaction Status Date / Time No Known Allergies Allergy Verified 06/10/24 02:45 Albuterol Sulfate (Albuterol 2.5 Mg/3 Ml Neb Mackenzie) 2.5 mg NEB [id number] PRN PRN Reason: SHORTNESS OF BREATH Aripiprazole (Aripiprazole 5 Mg Tab) 5 mg PO BEDTIME [facility] Last Admin: 10/13/24 22:16 Dose: 5 mg Aspirin (Aspirin Ec 81 Mg Tab) 81 mg PO DAILY [facility] Last Admin: 10/14/24 08:14 Dose: 81 mg Atorvastatin Calcium (Atorvastatin 40 Mg Tab) 40 mg PO BEDTIME [facility] Last Admin: 10/13/24 22:16 Dose: 40 mg Clopidogrel Bisulfate (Clopidogrel 75 Mg Tablet) 75 mg PO DAILY [facility] Last Admin: 10/14/24 08:13 Dose: 75 mg Divalproex Sodium (Divalproex Na 125 Mg Cap) 500 mg PO BID [facility] Last Admin: 10/14/24 08:10 Dose: 500 mg Enoxaparin Sodium (Enoxaparin 40 Mg/0.4 Ml) 40 mg SQ DAILY [facility] Last Admin: 10/14/24 08:18 Dose: 40 mg Famotidine (Famotidine 20 Mg/2 Ml Vial) 20 mg IV BID [facility]; Protocol Last Admin: 10/14/24 08:03 Dose: 20 mg Furosemide (Furosemide 20 Mg Tablet) 20 mg PO DAILY [facility] Last Admin: 10/14/24 08:12 Dose: 20 mg Gabapentin (Gabapentin 100 Mg Cap) 100 mg PO DAILY [facility] Last Admin: 10/14/24 08:05 Dose: 100 mg Glucagon (Glucagon 1 Mg/Vial) 1 mg IM 1X PRN PRN Reason: HYPOGLYCEMIA Hydralazine HCl (Hydralazine Hcl 20 Mg/Ml Vial) 10 mg IV Q6HP PRN PRN Reason: FOR SBP>160 OR DBP>100 [facility] Last Admin: 10/13/24 18:33 Dose: 10 mg Cefepime HCl 1 gm/ Sodium (Chloride) 100 mls @ 200 mls/hr IV Q12HR [facility]; Protocol Last Admin: 10/14/24 08:02 Dose: 100 mls Dextrose (Dextrose 10% Water Iv Soln.) 125 mls @ 0 mls/hr IV PRN PRN; Protocol PRN Reason: HYPOGLYCEMIA Vancomycin HCl 1.5 gm/ Sodium (Chloride) 500 mls @ 333.333 mls/hr IVPB Q12HR [facility] Last Admin: 10/14/24 08:41 Dose: 500 mls Insulin Human Regular (Insulin Regular (Human) 100 Unit/Ml) 0 unit SQ ACHS [facility]; Protocol Last Admin: 10/14/24 16:41 Dose: 4 unit Lactobacillus Acidoph/Bulgaricus (Lactobacillus/Acidophilus Tab) 2 tab PO DAILY [facility] Last Admin: 10/14/24 08:05 Dose: 2 tab Lactulose (Lactulose 20 Gm/30 Ml Ucup) 20 gm PO Q12HP PRN PRN Reason: CONSTIPATION Levetiracetam (Levetiracetam 500 Mg/5 Ml Osyr) 1,000 mg PO BID [facility] Stop: 11/10/24 21:01 Last Admin: 10/14/24 08:37 Dose: 1,000 mg Levothyroxine Sodium (Levothyroxine Sod 0.125 Mg Tab) 0.125 mg PO 0600 [facility] Last Admin: 10/14/24 05:35 Dose: 0.125 mg Lorazepam (Lorazepam 2 Mg/Ml Vial) 2 mg IV Q4H PRN PRN Reason: DELIRIUM Last Admin: 10/13/24 19:16 Dose: 2 mg Metoprolol Tartrate (Metoprolol Tar 25 Mg Tab) 25 mg PO BID [facility] Last Admin: 10/14/24 08:13 Dose: 25 mg Morphine Sulfate (Morphine 2 Mg/Ml Syr) 2 mg IV Q4H PRN PRN Reason: Pain scale 8-10 (Severe) Last Admin: 10/14/24 09:17 Dose: 2 mg Ondansetron HCl (Ondansetron 4 Mg/2 Ml Vial) 4 mg IV Q8H PRN PRN Reason: NAUSEA / VOMITING Pantoprazole Sodium (Pantoprazole 40mg Tablet) 40 mg PO ACB [facility] Last Admin: 10/14/24 07:49 Dose: 40 mg Potassium Chloride (Potassium Cl Sa 10 Meq Tab) 20 meq PO DAILY [facility] Last Admin: 10/14/24 08:16 Dose: 20 meq Rivastigmine Tartrate (Rivastigmine Tartrate 1.5 Mg) 1.5 mg PO BID [facility] Last Admin: 10/14/24 08:04 Dose: 1.5 mg Sertraline HCl (Sertraline Hcl 50 Mg Tab) 50 mg PO DAILY [facility] Last Admin: 10/14/24 08:13 Dose: 50 mg Laboratory Last Values WBC 14.40 thou/uL (4.3-10.9) H 10/10/24 20:05 RBC 3.75 M/uL (4.33-5.43) L 10/10/24 20:05 Hgb 10.2 g/dL (13.6-17.9) L 10/10/24 20:05 Hct 30.7 % (39.6-49.0) L 10/10/24 20:05 MCV 81.8 fL (80-100) 10/10/24 20:05 MCH 27.3 pg (27.0-35.0) 10/10/24 20:05 MCHC 33.4 g/dL (32.0-36.0) 10/10/24 20:05 RDW 16.6 % (12.1-15.2) H 10/10/24 20:05 Plt Count 219 thou/uL (152-406) 10/10/24 20:05 MPV 8.1 fL (7.6-11.3) 10/10/24 20:05 Neutrophils % 82.0 % (41.7-73.7) H 10/10/24 20:05 Lymphocytes % 4.7 % (15.3-44.8) L 10/10/24 20:05 Monocytes % 12.9 % (3.3-12.3) H 10/10/24 20:05 Eosinophils % 0.2 % (0-4.4) 10/10/24 20:05 Basophils % 0.2 % (0-1.3) 10/10/24 20:05 Absolute Neutrophils 11.8 K/uL (1.8-8.0) H 10/10/24 20:05 Absolute Lymphocytes 0.7 K/uL (0.7-4.9) 10/10/24 20:05 Absolute Monocytes 1.9 K/uL (0.1-1.3) H 10/10/24 20:05 Absolute Eosinophils 0.0 K/uL (0-0.5) 10/10/24 20:05 Absolute Basophils 0.0 K/uL (0-0.5) 10/10/24 20:05 PT 13.9 SECONDS (9.4-12.5) H 10/10/24 20:05 INR 1.33 10/10/24 20:05 Sodium 138 mEq/L (136-145) 10/10/24 20:05 Potassium 2.9 mEq/L (3.5-5.1) L 10/10/24 20:05 Chloride 103 mEq/L (98-107) 10/10/24 20:05 Carbon Dioxide 27 mEq/L (21-32) 10/10/24 20:05 Anion Gap 10.9 mEq/L (5.0-15.0) 10/10/24 20:05 BUN 24 mg/dL (7-18) H 10/10/24 20:05 Creatinine 1.01 mg/dL (0.70-1.30) 10/10/24 20:05 Est GFR (CKD-EPI) 81 ml/min (=/>90) L 10/10/24 20:05 Glucose 255 mg/dL (74-106) H 10/10/24 20:05 Calcium 8.8 mg/dL (8.5-10.1) 10/10/24 20:05 Magnesium 2.1 mg/dL (1.6-2.4) 10/10/24 20:05 Total Bilirubin 0.8 mg/dL (0.2-1.0) 10/10/24 20:05 Direct Bilirubin 0.2 mg/dL (0-0.2) 10/10/24 20:05 Indirect Bilirubin 0.6 mg/dL (0.2-0.8) 10/10/24 20:05 AST < 10 U/L (15-37) L 10/10/24 20:05 ALT < 14 U/L (16-61) L 10/10/24 20:05 Alkaline Phosphatase 62 U/L (45-117) 10/10/24 20:05 Troponin I High Sens 62.0 pg/mL (<58.9) H* 10/10/24 20:05 C-Reactive Protein 59.40 mg/L (<3.00) H 10/10/24 20:05 NT-Pro-B Natriuret Pep 465 pg/mL (<125) H 10/10/24 20:05 Serum Total Protein 6.5 g/dL (6.4-8.2) 10/10/24 20:05 Albumin 2.7 g/dL (3.4-5.0) L 10/10/24 20:05 Globulin 3.8 g/dL (2.3-3.5) H 10/10/24 20:05 Albumin/Globulin Ratio 0.7 (1.1-1.8) L 10/10/24 20:05 Lipase 19 U/L (13-75) 01/25/25 20:05 SARS-CoV-2 Ag (Rapid) Negative (Negative) 10/10/24 19:50 Physical Exam GEN: NAD, cooperative with exam, well groomed, well developed, well nourished HEENT: Head normocephalic, atraumatic, head normocephalic, head atraumatic, EOMI NECK: full range of motion, trachea midline, no increased JVP visible RESP: no respiratory distress, no use of accessory muscles of respiration CV: regular rate and rhythm , pulse rate regular GI: NL abdominal inspection, soft, nontender to palpation, no rebound/guarding/rigidity DERM: (-)diaphoresis, (-)periorbital xanthelasma, (-)xanthomas, (-)cyanosis PSYCH: alert and oriented to time, place, and person, normal mood, normal affect Right leg: Dorsalis pedis and posterior tibial pulses nonpalpable. Hyperpigmentation around the wound. Varices of the calf and thigh. CEAP stage venous insufficiency. Cyanosis to the great toe. Left leg: Dorsalis pedis pulse nonpalpable. Posterior tibial pulses 1+. Varices of the calf and thigh. No wounds or gangrene. 1+ edema. Results Results of arterial ultrasounds discussed with the patient, and his daughter over the phone Plan 1. Patient well known to me as an outpatient, and we have been treating his peripheral artery disease as well as venous insufficiency since 2020. He has had previous bilateral leg angiography and revascularization. 2. He has cyanosis to the right foot great toe. He is at high risk for amputation. 3. He has known history of severe right leg peripheral artery disease. He will need catheter arteriogram and revascularization, as an inpatient or outpatient. I have discussed this with the patients daughter and she is agreeable.
[2024-10-15 05:04] LABS: Hematocrit 28.4 % (39.6-49.0); Hemoglobin 9.9 g/dL (13.6-17.9); MCHC 34.8 g/dL (32.0-36.0); MCV 80.5 fL (80-100); MPV 7.3 fL (7.6-11.3); Platelets 207 thou/uL (152-406); RBC Red Blood Cell Count 3.53 M/uL (4.33-5.43); Red Cell Distribution Width 16.1 % (12.1-15.2)
[2024-10-15 05:24] LABS: Anion Gap 6.1 mEq/L (5.0-15.0); Potassium 3.1 mEq/L (3.5-5.1)
[2024-10-15] MEDS: KCL 20 MEQ/100 mL IVPB 20 MEQ/100 ML BAG IV SCH (06:16)
[2024-10-15] MEDS: NA CHLORIDE 0.9% 250 ML ONE (06:17)
[2024-10-15] MEDS ORDERED: VANCOMYCIN 1.5 GM in NA CHLORIDE 0.9% 500 ML IVPB SCH ×2 (09:00→14:00)
[2024-10-15] MEDS: Mupirocin NASAL 2 APPL/1 GM TUBE NAS SCH (09:20)
--- NOTE | 2024-10-15 09:51 | P.PN ---
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 Calcaneal spurs. Venous u/s (10/10): no DVT Dr. Flores, general surgery consulted s/p I&D (10/13); found to have necrotic tissue, +abscess of great toe. continue IV cefepime / vanc (10/11-10/15); likely deescalate to oral abx in next 12-24hrs wound care per surgery Blood cx (10/10): NGTD Wound cx (10/13): E. coli resistant to cipro/levaquin Dr. Henry, vascular consulted; has been seeing patient for PVD/venous insufficiency since 2020. arterial doppler (10/14): moderate PVD throughout most of the right lower extremity Dr. Henry recommending arteriogram and revascularization. Possibly tomorrow - per Dr. Henry. at risk for amputation per vascular tentative plan for tomorrow Delmy syndrome Hypokalemia CT abdomen (10/10): Chronic dilatation of the colon. Mild prostatic enlargement. Patient with chronic colonic dilatation. Patient denies diarrhea or constipation. Monitor and replete electrolytes as needed Elevated troponin - suspect demand ischemia Initial troponin mildly elevated. Suspect demand ischemia. Patient is asymptomatic. no further work up. IDDM2 Accu-cheks, SSI confirm home insulin regimen Hypertension Dementia Seizure disorder Hx of CVA with dysphagia confirm home meds, restart as appropriate VTE: Lovenox Code: Full Dispo: [place] resident - likely 3 days Pending vascular recs, possible surgery Time Spent Managing Pts Care (In Minutes): 55
[2024-10-15] MEDS: POTASSIUM 25 MEQ EFFERV TAB PO ONE (18:05)
[2024-10-15] MEDS: ONDANSETRON 4 MG/2 ML VIAL IV PRN (22:01)
[2024-10-16 04:10] LABS: Hematocrit 28.5 % (39.6-49.0); Hemoglobin 9.8 g/dL (13.6-17.9); MCH 27.6 pg (27.0-35.0); MCHC 34.6 g/dL (32.0-36.0); MCV 79.8 fL (80-100); MPV 7.1 fL (7.6-11.3); Platelets 232 thou/uL (152-406); RBC Red Blood Cell Count 3.56 M/uL (4.33-5.43); Red Cell Distribution Width 16.3 % (12.1-15.2)
[2024-10-16 04:24] LABS: Anion Gap 5.6 mEq/L (5.0-15.0); Magnesium 2.3 mg/dL (1.6-2.4); Potassium 3.6 mEq/L (3.5-5.1)
--- NOTE | 2024-10-16 09:13 | RAD REPORT ---
EXAM:Abdomen Angio CLINICAL HISTORY:: Peripheral vascular disease. Abdominal pain TECHNIQUE: Computed tomography angiography of the abdomen obtained. MIPS reconstruction performed.. 100 cc Isovu e-370 administered intravenously. Axial, sagittal and coronal reconstructions were obtained. One or more of the following dose reduction techniques were used: Automated exposure control, adjustment of the mA and kV according to patient size, and iterative reconstruction. Unless otherwise specified, incidental findings do not require dedicated imaging follow-up. COMPARISON: FINDINGS: The abdominal aorta contains mild calcified plaque. No aneurysm. No dissection. Celiac, SMA and LORENZO are patent. No significant stenosis. Renal arteries are patent. No significant stenosis. Small bilateral pleural effusions. Cholelithiasis IMPRESSION: No significant arterial disease involving the abdomen
--- NOTE | 2024-10-16 09:17 | RAD REPORT ---
EXAM:Pelvis Angio CLINICAL HISTORY: Peripheral vascular disease. Abdominal pain TECHNIQUE: Computed tomography angiography of the pelvis obtained. MIPS reconstruction performed.. 100 cc Isovue -370 administered intravenously. Axial, sagittal and coronal reconstructions were obtained. One or more of the following dose reduction techniques were used: Automated exposure control, adjustment of the mA and kV according to patient size, and iterative reconstruction. Unless otherwise specified, incidental findings do not require dedicated imaging follow-up. COMPARISON: October 10, 2024 CT FINDINGS: Mild calcified plaque common iliac, external iliac arteries bilaterally. Mild calcified plaque right internal carotid artery. Calcified plaque origin of the left internal iliac artery results in a severe stenosis. No aneurysm. No dissection Previously described dilatation of the colon has resolved. IMPRESSION: No significant abnormality involving the common iliac and external iliac arteries bilaterally. Severe stenosis origin of the left internal iliac artery
[2024-10-16] MEDS ORDERED: HEPA 1000U/500MLS 2,000 UNIT/1,000 ML BAG IV ONE (10:44)
[2024-10-16] MEDS ORDERED: LIDOCAINE 1% 20 ML MDV ONE (10:44)
[2024-10-16] MEDS ORDERED: MIDAZOLAM HCL 2 MG/2 ML INJ ONE ×3 (10:44→13:37)
[2024-10-16] MEDS ORDERED: HEPARIN 10,000 UNIT/10 ML VIAL IV ONE (10:44)
[2024-10-16] MEDS ORDERED: FENTANYL CITR 100 MCG/2 ML ONE ×3 (10:45→13:37)
[2024-10-16] MEDS ORDERED: ATROPINE SULF 1 MG/10 ML SYR IV ONE (10:45)
[2024-10-16] MEDS ORDERED: NA CHLORIDE 0.9% 500 ML ONE (10:50)
[2024-10-16] MEDS ORDERED: NALOXONE 0.4 MG/ML VIAL ONE (10:59)
[2024-10-16] MEDS ORDERED: PROTAMINE SULF 50 MG/5ML INJ IV ONE (10:59)
--- NOTE | 2024-10-16 11:28 | P.PN ---
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 Calcaneal spurs. Venous u/s (10/10): no DVT Dr. Flores, general surgery consulted s/p I&D (10/13); found to have necrotic tissue, +abscess of great toe. continue IV cefepime / vanc (10/11-10/15); deescalated to oral augmentin (10/16-) wound care per surgery Blood cx (10/10): NGTD Wound cx (10/13): E. coli, Streptococcus Agalactiae Grp B Dr. Henry, vascular consulted; has been seeing patient for PVD/venous i nsufficiency since 2020. arterial doppler (10/14): moderate PVD throughout most of the right lower extremity CTA pelvis (10/16): Severe stenosis origin of the left internal iliac artery. No significant abnormality involving the common iliac and external iliac arteries bilaterally CTA abdomen (10/16): No significant arterial disease. Small bilateral pleural effusions. Cholelithiasis. CTA lower extremity (10/16): pending s/p Right leg cath with right leg arteriogram, now s/p Right popliteal balloon angioplasty (10/16) f/u with Dr. Henry in 2 weeks. Will need to continue antiplatelet therapy on discharge. npo for amputation [place] syndrome Hypokalemia CT abdomen (10/10): Chronic dilatation of the colon. Mild prostatic enlargement. Patient with chronic colonic dilatation. Patient denies diarrhea or constipation. Monitor and replete electrolytes as needed Elevated troponin - suspect demand ischemia Initial troponin mildly elevated. Suspect demand ischemia. Patient is asymptomatic. no further work up. IDDM2 Accu-cheks, SSI confirm home insulin regimen Hypertension Dementia Seizure disorder Hx of CVA with dysphagia confirm home meds, restart as appropriate VTE: Lovenox Code: Full Dispo: [place] resident - likely 2-3 days Pending surgery, vascular recs Time Spent Managing Pts Care (In Minutes): 55
[2024-10-16] MEDS: AMOX/K CLAV 875 MG TAB PO SCH (11:30)
--- NOTE | 2024-10-16 12:04 | P.OP ---
Date of Service: 10/16/24 Procedures performed 1. Left common femoral artery puncture under ultrasound guidance with placement of 6 Ethiopian sheath 2. Right leg superficial femoral artery catheterization with right leg arteriogram with runoff to the foot. 3. Right popliteal artery drug-coated balloon angioplasty 4. Hemostasis using a 6F Mynx vascular closure device History The patient is a 69-year-old male who has known history of severe peripheral artery disease. He has cyanosis to the right foot great toe. He has ischemic rest pain. He has ultrasound proven severe peripheral artery disease. Patient has [place] 5 critical limb threatening ischemia and presents for catheter arteriogram with revascularization. Dosimetry Radiation dose: Procedure was performed in the computer laboratory technician on a [employer] System Sedation: Provided by the performing physician Drugs administered for sedation: 2 mg Versed IV, 100 mcg fentanyl IV Sedation time (minutes): 48 The performing physician was directly supervising a trained, independent observer, who was present throughout moderate sedation, and providing constant monitoring of the patient throughout moderate sedation, including monitoring the patient's level of consciousness as well as physiological status, including monitoring measurements of blood pressure, pulse oximetry, heart rhythm, and patient responsiveness. This observer had no other duties other than monitoring the patient. Heparin administered IV during procedure for thromboembolism prophylaxis: 5000 units Estimated blood loss: Less than 10ml Procedure Informed consent was obtained after a detailed explanation of the risks, benefits and alternatives of the examination. The patient was positioned supine. A time-out was performed. The area of concern was prepped and draped with all elements of maximal sterile barrier technique, including playback operator hand hygiene, cap, mask, sterile gown and sterile gloves as well sterile ultrasound gel and sterile ultrasound probe cover. Patient was prepped with 2% chlorhexidine prep, and sterile full patient body drape was used. Diagnostic ultrasound was performed to evaluate the arteries for suitability for puncture. Color, duplex and spectral techniques were utilized to evaluate the femoral artery in the groin, as well as the dorsalis pedis and posterior tibial arteries at the ankle and foot. 1% lidocaine was administered at the puncture site locally. Ultrasound was used to identify the left common femoral artery and its patency. The artery appeared to be sonographically patent and suitable for puncture and access. Under ultrasound guidance, 19g needle was advanced into the common femoral artery. Ultrasound image documenting guidance and arterial patency was obtained and stored. Wire was placed followed by a 5F sheath. Multisidehole catheter was advanced over the aortic bifurcation to the contralateral right superficial femoral artery where contrast was injected to obtain right leg angiogram with runoff to the foot. Based on the results of the diagnostic arteriogram, decision was made to proceed with interventions. The diagnostic arteriogram was the basis for subsequent procedures performed. The indwelling left femoral 5 Ethiopian sheath was removed and replaced with an over the bifurcation 6 Ethiopian Terumo destination sheath. Patient was systemically heparinized with 5000 years of heparin IV. A 035 Glidewire advantage was then advanced across critical 90% in-stent restenosis in the right popliteal artery stent. Subsequently, a Meizu InPact Admiral 5mm x 150mm drug-coated balloon catheter was advanced into the right popliteal artery stent. The balloon was inflated to 8 jessica to 3 minutes. Arteriogram demonstrated excellent results. Exam was completed, catheter and sheath removed and hemostasis achieved using a Mynx vascular closure device. Patient was in good condition. Findings Diagnostic arteriogram: Diagnostic arteriogram was performed because the last procedure on this patient in our practice was in 2020, and the patient's clinical condition has changed since that time. The right common femoral artery and superficial femoral artery are patent. There is a stent present in the right popliteal artery. There are 70% areas of in-stent restenosis within the proximal and midportion of the stent. There is 90% stenosis at the junction of the stent and the popliteal artery below the knee. Below the knee, there is complete 100% total occlusion of the anterior tibial and posterior tibial arteries with single vessel peroneal runoff. Intervention: Critical right popliteal artery in-stent restenosis was treated with 5 mm drug-coated balloon angioplasty, with excellent results and no residual stenosis. Impression 1. Patent right superficial femoral artery. 2. Critical right popliteal artery in-stent restenosis treated with 5 mm drug- coated balloon angioplasty with excellent results 3. Recommend continued antiplatelet therapy on discharge. Follow-up scheduled in my clinic in 2 weeks
--- NOTE | 2024-10-16 12:54 | RAD REPORT ---
EXAM: Lower Ext Angio HISTORY: PAD COMPARISON: None TECHNIQUE: Multiple contiguous axial images were obtained a CTA of the bilateral lower extremity with contrast. Sagittal and coronal 3-D MIP reformats were performed. FINDINGS: Reference CTA abdomen and pelvis for findings regarding the abdominal aorta and iliac vessels. Right lower extremity: Patent right common femoral artery. The right SFA has calcified and noncalcifi ed plaque but no flow-limiting stenosis. Patent popliteal artery stent. The anterior tibial artery may be occluded proximally but reconstitutes. The peroneal artery appears patent to the ankle. The po sterior tibial artery likely has a high-grade stenosis approximately but is likely patent. Left lower extremity: The left common femoral artery is patent. Stents in the SFA and popliteal arter ies are patent. The anterior tibial artery is occluded beyond the origin. The posterior tibial artery has multifocal moderate to high-grade stenoses proximally but is otherwise patent. The peronea l artery is patent. IMPRESSION: Peripheral vascular disease with high-grade stenoses and/or occlusions of 2 of the 3 runoff vessels b ilaterally. The peroneal arteries are patent throughout but the bilateral anterior tibial and posterior tibial arteries have multifocal stenoses and/or occlusions.
[2024-10-16] MEDS: LIDOCAINE HCL/EPINEPHRINE 20 ML MDV ONE (12:59)
[2024-10-16] MEDS: NA CHLORIDE 0.9% 1,000 ML ONE (13:20)
[2024-10-16] MEDS ORDERED: LIDOCAINE 2% MPF 5 ML VIAL ONE (13:37)
[2024-10-16] MEDS ORDERED: propofoL 200 MG/20 ML VIAL IV ONE (13:37)
[2024-10-16] MEDS ORDERED: EPHEDRINE SULF 50 MG/ML VIAL ONE (14:00)
[2024-10-16] MEDS: CEFAZOLIN SODIUM 2 GM/VIAL ONE (14:13)
[2024-10-16] MEDS ORDERED: ROCURONIUM 50 MG/5 ML VIAL IV ONE (14:18)
--- NOTE | 2024-10-16 14:59 | P.OP ---
Preoperative diagnosis: Severe Peripheral Vascular Disease of RIGHT Great Toe / Metatarsal Postoperative diagnosis: Severe Peripheral Vascular Disease of RIGHT Great Toe / Metatarsal Primary procedure: Partial Ray Amputation of RIGHT Great Toe Anesthesia: GETA + Local Estimated blood loss: <5cc Specimen: Right Great Toe / partial Ray Findings: Necrosis of Great Toe Complications: None Transferred to: Recovery Room Condition: Good
[2024-10-16] MEDS ORDERED: AMOX/K CLAV 875 MG TAB PO SCH (17:00)
--- NOTE | 2024-10-17 01:01 | OP ---
Date of Procedure: 10/16/2024 Surgeon: Mc Flores MD, Preoperative Diagnosis: Severe peripheral vascular disease of the right great toe/metatarsal. Postoperative Diagnosis: Severe peripheral vascular disease of the right great toe/metatarsal. Procedure Performed: A partial ray amputation of right great toe. Anesthesia: General endotracheal plus local with 1% lidocaine. Estimated Blood Loss: 5 cc. Specimen: Right great toe/partial ray amputation. Findings: Necrosis of the great toe extending beyond the metatarsal head. Complications: None. Disposition: The patient was transferred to recovery room in good condition. Procedure In Detail: After informed consent was obtained, the patient was brought to the operating r oom, prepped and draped in the usual sterile fashion. After adequate anesthesia achieved, I circumfe rentially dissected out the skin on an area of necrosis. I used wound fluoroscopy intraoperatively t o demarcate the area of obvious infection and was easily able to see areas of infection surrounding t he necrotic great toe on the right side. After I circumferentially dissected out this area of concer n, I debrided down circumferentially around the right great toe. As the area of necrosis and poor bl ood supply extended to the metatarsal head, I had to extend this beyond the metatarsal head down to g ood viable tissue circumferentially around where viable tissue was appreciated. I dissected all nonv iable tissue circumferentially using a combination of electrocautery and sharp dissection circumferen tially around and taken the periosteum off an area to be demarcated on the metatarsal head. At this point, I used a bone saw to cut through, protecting the tissues around with a gauze to allow for the bone cutter to cut through, with nice even plane. The pneumatic bone cutter got through quite easily . At this point, the tissue was passed off for pathologic examination. The area was copiously irrig ated. Minimum hemostasis was required at this point. After the area was copiously irrigated multipl e times, I used a rasp to bevel out the edges of the metatarsal at the midportion of this area. I th en brought a flap of tissue over the top and ultimately closed the defect with a combination 3-0 and 2-0 interrupted nylon sutures and a sterile dressing placed over top. The patient tolerated the proc edure without incident or complication and transferred to PACU in good condition. All counts correct at the end of the case. TK/MODL Voice ID: [id number] Report ID: [id number]
[2024-10-17 04:45] LABS: Hematocrit 28.3 % (39.6-49.0); Hemoglobin 9.8 g/dL (13.6-17.9); MCH 27.8 pg (27.0-35.0); MCHC 34.4 g/dL (32.0-36.0); MCV 80.7 fL (80-100); MPV 7.2 fL (7.6-11.3); Platelets 236 thou/uL (152-406); RBC Red Blood Cell Count 3.51 M/uL (4.33-5.43); Red Cell Distribution Width 16.2 % (12.1-15.2)
[2024-10-17 05:04] LABS: Anion Gap 8.8 mEq/L (5.0-15.0); Magnesium 2.2 mg/dL (1.6-2.4); Potassium 3.8 mEq/L (3.5-5.1)
--- NOTE | 2024-10-17 09:41 | P.PN ---
Date of Service: 10/17/24 Subjective: s/p partial right great toe amputation yesterday denies any foot pain no acute events overnight afebrile ROS: 10 point ROS as noted above, otherwise negative Physical Exam: GEN: Alert, NAD CV: Regular rate and rhythm, no edema Pulm: Nonlabored respirations on room air, clear bilaterally ABD: soft, nontender, nondistended Integumentary: right foot wrapped, s/p R great toe amputation Problem List: Right great toe abscess with necrosis, now s/p I&D (10/13) Critical Right popliteal stenosis s/p balloon angioplasty (10/16) Moderate PVD Right Lower Extremity, now s/p partial ray amputation of Right great toe (10/16) 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 Flores, general surgery consulted s/p I&D (10/13); found to have necrotic tissue, +abscess of great toe. IV cefepime / vanc (10/11-10/15) de-escalated to oral augmentin (10/16-) Blood cx (10/10): No growth Wound cx (10/13): E. coli, Streptococcus Agalactiae Grp B Dr. Henry, vascular consulted; has been seeing patient for PVD/venous insufficiency since 2020. arterial doppler (10/14): moderate PVD throughout most of the right lower extremity CTA lower extremity (10/16): PVD with high-grade stenoses and/or occlusions of 2 of the 3 runoff vessels bilaterally. The peroneal arteries are patent throughout but the bilateral anterior tibial and posterior tibial arteries have multifocal stenoses CTA pelvis (10/16): Severe stenosis origin of the left internal iliac artery. No significant abnormality involving the common iliac and external iliac arteries bilaterally CTA abdomen (10/16): No significant arterial disease. Small bilateral pleural effusions. Cholelithiasis. s/p Right leg cath with right leg arteriogram, now s/p Right popliteal balloon angioplasty (10/16) s/p partial ray amputation of right great toe (10/16) f/u with Dr. Henry in 2 weeks. Will need to continue antiplatelet therapy on discharge. Delmy syndrome Hypokalemia CT abdomen (10/10): Chronic dilatation of the colon. Mild prostatic enlargement. Patient with chronic colonic dilatation. Patient denies diarrhea or constipation. Monitor and replete electrolytes as needed Elevated troponin - suspect demand ischemia Initial troponin mildly elevated. Suspect demand ischemia. Patient is asymptomatic. no further work up. IDDM2 Accu-cheks, SSI confirm home insulin regimen Hypertension Dementia Seizure disorder Hx of CVA with dysphagia confirm home meds, restart as appropriate VTE: Lovenox Code: Full Dispo: NH resident - likely 2 days Pending improvement, surgical/vascular recs Time Spent Managing Pts Care (In Minutes): 55
--- NOTE | 2024-10-17 13:16 | CON ---
Date of Consultation: 10/11/2024 Brief History Of Present Illness: The patient is a 69-year-old [facility] resident at [facility] with a past medical history of hypertension, diabetes, dementia, schizoaffective disorder, CVA with right-sided vasile with right-sided weakness, speech disturbance with dysphagia, and a history of chronic colonic distention over many months. He has had frequent admissions with distended abdomen a nd decreased bowel function, treated medically on all these occasions. He now presents with the same abdominal distention as well as swelling to his right great toe and drainage of this area with bakari rn for a significant infection. The family states the toe became discolored, began getting red, and ultimately drained abscess like material and now he has this as a concomitant issue. Most of the inf ormation was obtained from the chart. However, patient is conversive and intermittently conversive a t times. Past Medical History: Significant for CVA with right-sided weakness, depressive disorder, gallstones , diabetic retinopathy, depression, thyroid disease, seizure disorder, coronary artery disease, diabe loan, schizophrenia, sleep disturbances, dementia. Past Surgical History: Includes a CABG, thyroidectomy, right fifth toe amputation, bilateral lower e xtremity stents. Allergies: NO KNOWN DRUG ALLERGIES. Home Medications: Included atorvastatin, Plavix, Lasix, Lantus, metoprolol, Tylenol, Norvasc, Abilif y, aspirin, Depakote, Neurontin, omeprazole, KCl, rivastigmine, sertraline, Boniva, Keppra, Aquaphor, lactulose, levothyroxine, Lactinex packet, Cipro, and Flagyl. Social History: No history of alcohol, smoking, or recreational drug use by report. Review of Systems: Unable to complete review of systems due to decreased ability to answer questions Physical Examination: General: At the time of my examination, the patient is awake and alert with some low-grade confusion but is conversive. HEENT: Normocephalic, otherwise. His sclerae are anicteric, and mucous membranes are moist. Oropha rynx clear. Neck: Supple without JVD. Chest: Normal expansion and excursion. Cardiovascular: Regular rate and rhythm. Pulmonary: Clear to auscultation bilaterally. Abdomen: Soft with global distention but no tenderness even to deep palpation. No peritonitis. Sli ght tympanic sound consistent with previous abdominal exams. He has no rebound, no guarding, no othe r concerning abdominal findings other than mild distention and tympany. Skin/Extremities: He has a diabetic ulcer on the right great toe on the plantar surface with a large callus as well. He has decreased strength on the right side of his body. Vital Signs: Blood pressure 158/63, pulse 65, respiratory rate 16, temperature 98.4. He denied pain during my examination. Laboratory Exam: White blood cell count was 9.6, hemoglobin is 9.9 over hematocrit of 28.5, platelet count was 184. His PT , INR 1.33. Sodium 140, potassium 2.9, chloride 107, carbon dioxid e 25, BUN was 9, creatinine 0.5, glucose was 85. His lactic acid on 10/10 was 1.2. He had a slight elevation of his troponin 62.0. He had imaging performed, which included a CT abdomen and pelvis whi ch showed the patient has pseudo-colonic obstruction with the sigmoid colon measuring between 13 and 14 cm. He additionally had imaging of the right foot which showed calcaneal spurs. No bony destruct elkin lesions visualized. He additionally had an ultrasound which showed no evidence of DVT involving lower extremities. Assessment And Plan: This is a 69-year-old man who presents with infection of the great toe with sig nificant inflammatory changes and abscess concerning for a significant diabetic ulcer of his toe and a colonic pseudo-obstruction, which is chronic. 1. Continue medical management per primary team. 2. I have explained the risks, benefits, and alternatives of amputation of the right great toe. Cortes page, at this time, he was not agreeable to amputation. However, he is agreeable to debridement of th e toe. I have explained that it is unlikely we will be able to salvage and save the great toe. Cortes page, patient was perseverant at this time to attempt at least to try to save the toe with a debrideme nt and if he required further amputation at a later date, he would be willing to consider that at beatris t time. 3. Cardiac clearance due to his elevated troponins as in history. 4. Continue management with electrolyte correction for his pseudo-colonic obstruction and as the oscar ent is asymptomatic from this, recommend clear liquid diet and advancing gently with serial abdominal exams. 5. I have discussed the plan with the patient's daughter as well, who states she is his medical power of collections attorney, who agrees with the plan as indicated. LILIA/INGRID Voice ID: [id number] Report ID: [id number]
[2024-10-17] MEDS: LACTULOSE 20 GM/30 ML UCUP PO ONE (15:16)
[2024-10-18 05:01] LABS: Hematocrit 28.8 % (39.6-49.0); Hemoglobin 9.6 g/dL (13.6-17.9); MCH 26.8 pg (27.0-35.0); MCHC 33.4 g/dL (32.0-36.0); MCV 80.2 fL (80-100); Platelets 297 thou/uL (152-406); RBC Red Blood Cell Count 3.58 M/uL (4.33-5.43); Red Cell Distribution Width 16.5 % (12.1-15.2)
[2024-10-18 05:26] LABS: Anion Gap 5.9 mEq/L (5.0-15.0); Magnesium 2.4 mg/dL (1.6-2.4); Potassium 3.9 mEq/L (3.5-5.1)
--- NOTE | 2024-10-18 10:55 | P.PN ---
Date of Service: 10/18/24 Subjective: foot pain okay, tolerable with current pain medication more awake/alert today feeling better today Denies constipation. Doesn't feel bloated. denies any new or worsening problems ROS: 10 point ROS as noted above, otherwise negative Physical Exam: GEN: Alert, NAD CV: Regular rate and rhythm, no edema Pulm: Nonlabored respirations on room air, clear bilaterally ABD: soft, nontender, nondistended Integumentary: right foot wrapped, s/p R great toe amputation Problem List: Right great toe abscess with necrosis, now s/p I&D (10/13) Critical Right popliteal stenosis s/p balloon angioplasty (10/16) Moderate PVD Right Lower Extremity, now s/p partial ray amputation of Right great toe (10/16) Severe left internal iliac stenosis Left foot callus Delmy syndrome Hypokalemia Elevated troponin - suspect demand ischemia Hypertension Dementia Seizure disorder IDDM2 Hx of CVA with dysphagia Right great toe abscess with necrosis, now s/p I&D (10/13) Critical Right popliteal stenosis s/p balloon angioplasty (10/16) Moderate PVD Right Lower Extremity, now s/p partial ray amputation of Right great toe (10/16) Severe left internal iliac stenosis Left foot callus Dr. Flores, general surgery consulted s/p I&D (10/13); found to have necrotic tissue, +abscess of great toe. IV cefepime / vanc (10/11-10/15) de-escalated to oral augmentin (10/16-) Blood cx (10/10): No growth Wound cx (10/13): E. coli initally, then Streptococcus Agalactiae Grp B grew later Dr. Henry, vascular consulted; has been seeing patient for PVD/venous insufficiency since 2020. arterial doppler (10/14): moderate PVD throughout most of the right lower extremity CTA lower extremity (10/16): PVD with high-grade stenoses and/or occlusions of 2 of the 3 runoff vessels bilaterally. The peroneal arteries are patent throughout but the bilateral anterior tibial and posterior tibial arteries have multifocal stenoses CTA pelvis (10/16): Severe stenosis origin of the left internal iliac artery. No significant abnormality involving the common iliac and external iliac arteries bilaterally CTA abdomen (10/16): No significant arterial disease. Small bilateral pleural effusions. Cholelithiasis. s/p Right leg cath with right leg arteriogram, now s/p Right popliteal balloon angioplasty (10/16) s/p partial ray amputation of right great toe (10/16) f/u with Dr. Henry in 2 weeks. Will need to continue antiplatelet therapy on discharge. repeat CBC in AM leukocytosis today, ROS negative, reports feeling better Delmy syndrome Hypokalemia CT abdomen (10/10): Chronic dilatation of the colon. Mild prostatic enlargement. Patient with chronic colonic dilatation. Patient denies diarrhea or constipation. Monitor and replete electrolytes as needed Elevated troponin - suspect demand ischemia Initial troponin mildly elevated. Suspect demand ischemia. Patient is asymptomatic. no further work up. IDDM2 Accu-cheks, SSI confirm home insulin regimen Hypertension Dementia Seizure disorder Hx of CVA with dysphagia confirm home meds, restart as appropriate VTE: Lovenox Code: Full Dispo: [place] resident - 1-2 days Pending improvement monitor WBC Time Spent Managing Pts Care (In Minutes): 45
[2024-10-18] MEDS: SILVER SULFADIAZINE 1% 50 GM TOP SCH (12:41)
[2024-10-18] MEDS ORDERED: BISACODYL 10 MG RECTAL SUPP PR PRN (15:07)
[2024-10-19 05:12] LABS: Absolute Basophils 0.1 K/uL (0-0.5); Absolute Eosinophils 0.2 K/uL (0-0.5); Absolute Lymphocytes (CBC) 1.2 K/uL (0.7-4.9); Absolute Monocytes 1.6 K/uL (0.1-1.3); Absolute Neutrophil 10.9 K/uL (1.8-8.0); Basophils % 0.7 % (0-1.3); Eosinophils % 1.8 % (0-4.4); Hematocrit 27.8 % (39.6-49.0); Hemoglobin 9.5 g/dL (13.6-17.9); Lymphocytes % 8.6 % (15.3-44.8); MCH 27.3 pg (27.0-35.0); MCHC 34.2 g/dL (32.0-36.0); Monocytes % 11.6 % (3.3-12.3); Neutrophils % 77.3 % (41.7-73.7); Nucleated Red Blood Cells % 0.1 % (0-0); Platelets 315 thou/uL (152-406); RBC Red Blood Cell Count 3.48 M/uL (4.33-5.43); Red Cell Distribution Width 16.7 % (12.1-15.2)
[2024-10-19 05:16] LABS: Anion Gap 7.2 mEq/L (5.0-15.0); Magnesium 2.3 mg/dL (1.6-2.4); Potassium 4.2 mEq/L (3.5-5.1)
--- NOTE | 2024-10-19 12:09 | P.PN ---
Date of Service: 10/19/24 Subjective: no acute events overnight intermittently agitated appetite slowly improving afebrile ROS: 10 point ROS as noted above, otherwise negative Physical Exam: GEN: Alert, NAD CV: Regular rate and rhythm, no edema Pulm: Nonlabored respirations on room air, clear bilaterally ABD: soft, nontender, nondistended Integumentary: right foot dark discoloration at surgical site, with some erythema Problem List: Right great toe abscess with necrosis, now s/p I&D (10/13) Critical Right popliteal stenosis s/p balloon angioplasty (10/16) Moderate PVD Right Lower Extremity, now s/p partial ray amputation of Right great toe (10/16) 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 Flores, general surgery consulted s/p I&D (10/13); found to have necrotic tissue, +abscess of great toe. IV cefepime / vanc (10/11-10/15) de-escalated to oral augmentin (10/16-) ID consulted given rising WBC Blood cx (10/10): No growth Wound cx (10/13): E. coli initally, then Streptococcus Agalactiae Grp B grew later Dr. Henry, vascular consulted; has been seeing patient for PVD/venous insufficiency since 2020. arterial doppler (10/14): moderate PVD throughout most of the right lower extremity CTA lower extremity (10/16): PVD with high-grade stenoses and/or occlusions of 2 of the 3 runoff vessels bilaterally. The peroneal arteries are patent throughout but the bilateral anterior tibial and posterior tibial arteries have multifocal stenoses CTA pelvis (10/16): Severe stenosis origin of the left internal iliac artery. No significant abnormality involving the common iliac and external iliac arteries bilaterally CTA abdomen (10/16): No significant arterial disease. Small bilateral pleural effusions. Cholelithiasis. s/p Right leg cath with right leg arteriogram, now s/p Right popliteal balloon angioplasty (10/16) s/p partial ray amputation of right great toe (10/16) f/u with Dr. Henry in 2 weeks. Will need to continue antiplatelet therapy on discharge. will need further intervention leukocytosis today slightly worse, ROS negative, reports feeling better repeat labs in AM dark/dusky discolorations of foot [place] syndrome Hypokalemia CT abdomen (10/10): Chronic dilatation of the colon. Mild prostatic enlargement. Patient with chronic colonic dilatation. Patient denies diarrhea or constipation. Monitor and replete electrolytes as needed Elevated troponin - suspect demand ischemia Initial troponin mildly elevated. Suspect demand ischemia. Patient is asymptomatic. no further work up. IDDM2 Accu-cheks, SSI confirm home insulin regimen Hypertension Dementia Seizure disorder Hx of CVA with dysphagia confirm home meds, restart as appropriate VTE: Lovenox Code: Full Dispo: NH resident - 2 days Pending improvement monitor WBC Time Spent Managing Pts Care (In Minutes): 45
[2024-10-19] MEDS: COLLAGENASE 30 GM OINTMENT TOP SCH (12:11)
[2024-10-20 05:18] LABS: Absolute Basophils 0.1 K/uL (0-0.5); Absolute Eosinophils 0.4 K/uL (0-0.5); Absolute Lymphocytes (CBC) 1.1 K/uL (0.7-4.9); Absolute Monocytes 1.5 K/uL (0.1-1.3); Absolute Neutrophil 10.6 K/uL (1.8-8.0); Basophils % 0.6 % (0-1.3); Eosinophils % 2.6 % (0-4.4); Hematocrit 29.6 % (39.6-49.0); Hemoglobin 10.1 g/dL (13.6-17.9); Lymphocytes % 8.3 % (15.3-44.8); MCH 27.7 pg (27.0-35.0); MCHC 34.1 g/dL (32.0-36.0); MCV 81.2 fL (80-100); MPV 6.9 fL (7.6-11.3); Monocytes % 11.3 % (3.3-12.3); Neutrophils % 77.2 % (41.7-73.7); Nucleated Red Blood Cells % 0.1 % (0-0); Platelets 364 thou/uL (152-406); RBC Red Blood Cell Count 3.65 M/uL (4.33-5.43); Red Cell Distribution Width 16.1 % (12.1-15.2)
[2024-10-20 06:20] LABS: Anion Gap 7.1 mEq/L (5.0-15.0); C-Reactive Protein 89.8 mg/L (<3.00); Magnesium 2.2 mg/dL (1.6-2.4); Potassium 4.1 mEq/L (3.5-5.1)
--- NOTE | 2024-10-20 11:29 | P.PN ---
Subjective Date of Service: 10/20/24 Chief Complaint: Abdominal distention Subjective: No new changes Temp Pulse Resp BP Pulse Ox 98.0 F 70 18 133/62 97 10/20/24 08:00 10/20/24 08:00 10/20/24 08:00 10/20/24 08:00 10/20/24 08:00 Laboratory Last Values Lungs: Basal Crackles Heart: S1-S2 regular Abdomen: Soft, bowel sound present Extremity: Wound noted, no edema WBC 14.40 thou/uL (4.3-10.9) H 10/10/24 20:05 RBC 3.75 M/uL (4.33-5.43) L 10/10/24 20:05 Hgb 10.2 g/dL (13.6-17.9) L 10/10/24 20:05 Hct 30.7 % (39.6-49.0) L 10/10/24 20:05 MCV 81.8 fL (80-100) 10/10/24 20:05 MCH 27.3 pg (27.0-35.0) 10/10/24 20:05 MCHC 33.4 g/dL (32.0-36.0) 10/10/24 20:05 RDW 16.6 % (12.1-15.2) H 10/10/24 20:05 Plt Count 219 thou/uL (152-406) 10/10/24 20:05 MPV 8.1 fL (7.6-11.3) 10/10/24 20:05 Neutrophils % 82.0 % (41.7-73.7) H 10/10/24 20:05 Lymphocytes % 4.7 % (15.3-44.8) L 10/10/24 20:05 Monocytes % 12.9 % (3.3-12.3) H 10/10/24 20:05 Eosinophils % 0.2 % (0-4.4) 10/10/24 20:05 Basophils % 0.2 % (0-1.3) 10/10/24 20:05 Absolute Neutrophils 11.8 K/uL (1.8-8.0) H 10/10/24 20:05 Absolute Lymphocytes 0.7 K/uL (0.7-4.9) 10/10/24 20:05 Absolute Monocytes 1.9 K/uL (0.1-1.3) H 10/10/24 20:05 Absolute Eosinophils 0.0 K/uL (0-0.5) 10/10/24 20:05 Absolute Basophils 0.0 K/uL (0-0.5) 10/10/24 20:05 PT 13.9 SECONDS (9.4-12.5) H 10/10/24 20:05 INR 1.33 10/10/24 20:05 Sodium 138 mEq/L (136-145) 10/10/24 20:05 Potassium 2.9 mEq/L (3.5-5.1) L 10/10/24 20:05 Chloride 103 mEq/L (98-107) 10/10/24 20:05 Carbon Dioxide 27 mEq/L (21-32) 10/10/24 20:05 Anion Gap 10.9 mEq/L (5.0-15.0) 10/10/24 20:05 BUN 24 mg/dL (7-18) H 10/10/24 20:05 Creatinine 1.01 mg/dL (0.70-1.30) 10/10/24 20:05 Est GFR (CKD-EPI) 81 ml/min (=/>90) L 10/10/24 20:05 Glucose 255 mg/dL (74-106) H 10/10/24 20:05 Calcium 8.8 mg/dL (8.5-10.1) 10/10/24 20:05 Magnesium 2.1 mg/dL (1.6-2.4) 10/10/24 20:05 Total Bilirubin 0.8 mg/dL (0.2-1.0) 10/10/24 20:05 Direct Bilirubin 0.2 mg/dL (0-0.2) 10/10/24 20:05 Indirect Bilirubin 0.6 mg/dL (0.2-0.8) 10/10/24 20:05 AST < 10 U/L (15-37) L 10/10/24 20:05 ALT < 14 U/L (16-61) L 10/10/24 20:05 Alkaline Phosphatase 62 U/L (45-117) 10/10/24 20:05 Troponin I High Sens 62.0 pg/mL (<58.9) H* 10/10/24 20:05 C-Reactive Protein 59.40 mg/L (<3.00) H 10/10/24 20:05 NT-Pro-B Natriuret Pep 465 pg/mL (<125) H 10/10/24 20:05 Serum Total Protein 6.5 g/dL (6.4-8.2) 10/10/24 20:05 Albumin 2.7 g/dL (3.4-5.0) L 10/10/24 20:05 Globulin 3.8 g/dL (2.3-3.5) H 10/10/24 20:05 Albumin/Globulin Ratio 0.7 (1.1-1.8) L 10/10/24 20:05 Lipase 19 U/L (13-75) 10/10/24 20:05 SARS-CoV-2 Ag (Rapid) Negative (Negative) 10/10/24 19:50 Albuterol Sulfate (Albuterol 2.5 Mg/3 Ml Neb Mack[place]) 2.5 mg NEB [id number] PRN PRN Reason: SHORTNESS OF BREATH Amoxicillin/Clavulanate Potassium (Amox/K Clav 875 Mg Tab) 875 mg PO BIDWM [facility]; Protocol Last Admin: 10/20/24 08:35 Dose: 875 mg Aripiprazole (Aripiprazole 5 Mg Tab) 5 mg PO BEDTIME [facility] Last Admin: 10/19/24 23:02 Dose: 5 mg Aspirin (Aspirin Ec 81 Mg Tab) 81 mg PO DAILY [facility] Last Admin: 10/20/24 09:35 Dose: 81 mg Atorvastatin Calcium (Atorvastatin 40 Mg Tab) 40 mg PO BEDTIME [facility] Last Admin: 10/19/24 23:02 Dose: 40 mg Bisacodyl (Bisacodyl 10 Mg Rectal Supp) 10 mg OR DAILY PRN PRN Reason: CONSTIPATION Clopidogrel Bisulfate (Clopidogrel 75 Mg Tablet) 75 mg PO DAILY [facility] Last Admin: 10/20/24 09:36 Dose: 75 mg Collagenase (Collagenase 30 Gm Ointment) 1 appl TOP DAILY [facility] Last Admin: 10/20/24 09:39 Dose: 1 appl Divalproex Sodium (Divalproex Na 125 Mg Cap) 500 mg PO BID [facility] Last Admin: 10/20/24 09:35 Dose: 500 mg Enoxaparin Sodium (Enoxaparin 40 Mg/0.4 Ml) 40 mg SQ DAILY [facility] Last Admin: 10/20/24 09:45 Dose: 40 mg Famotidine (Famotidine 20 Mg/2 Ml Vial) 20 mg IV BID [facility]; Protocol Last Admin: 10/20/24 09:36 Dose: 20 mg Furosemide (Furosemide 20 Mg Tablet) 20 mg PO DAILY [facility] Last Admin: 10/20/24 09:37 Dose: 20 mg Gabapentin (Gabapentin 100 Mg Cap) 100 mg PO DAILY [facility] Last Admin: 10/20/24 09:37 Dose: 100 mg Glucagon (Glucagon 1 Mg/Vial) 1 mg IM 1X PRN PRN Reason: HYPOGLYCEMIA Hydralazine HCl (Hydralazine Hcl 20 Mg/Ml Vial) 10 mg IV Q6HP PRN PRN Reason: FOR SBP>160 OR DBP>100 [facility] Last Admin: 10/13/24 18:33 Dose: 10 mg Dextrose (Dextrose 10% Water Iv Soln.) 125 mls @ 0 mls/hr IV PRN PRN; Protocol PRN Reason: HYPOGLYCEMIA Insulin Human Regular (Insulin Regular (Human) 100 Unit/Ml) 0 unit SQ ACHS [facility]; Protocol Last Admin: 10/20/24 08:18 Dose: 6 unit Lactobacillus Acidoph/Bulgaricus (Lactobacillus/Acidophilus Tab) 2 tab PO DAILY [facility] Last Admin: 10/20/24 09:38 Dose: 2 tab Lactulose (Lactulose 20 Gm/30 Ml Ucup) 20 gm PO Q12HP PRN PRN Reason: CONSTIPATION Levetiracetam (Levetiracetam 500 Mg/5 Ml [place]) 1,000 mg PO BID [facility] Stop: 11/10/24 21:01 Last Admin: 10/20/24 09:47 Dose: 1,000 mg Levothyroxine Sodium (Levothyroxine Sod 0.125 Mg Tab) 0.125 mg PO 0600 [facility] Last Admin: 10/20/24 05:52 Dose: 0.125 mg Metoprolol Tartrate (Metoprolol Tar 25 Mg Tab) 25 mg PO BID [facility] Last Admin: 10/20/24 08:00 Dose: 25 mg Morphine Sulfate (Morphine 2 Mg/Ml Syr) 2 mg IV Q4H PRN PRN Reason: Pain scale 8-10 (Severe) Last Admin: 10/19/24 09:55 Dose: 2 mg Ondansetron HCl (Ondansetron 4 Mg/2 Ml Vial) 4 mg IV Q8H PRN PRN Reason: NAUSEA / VOMITING Last Admin: 10/15/24 22:01 Dose: 4 mg Pantoprazole Sodium (Pantoprazole 40mg Tablet) 40 mg PO ACB [facility] Last Admin: 10/20/24 08:30 Dose: 40 mg Potassium Chloride (Potassium Cl Sa 10 Meq Tab) 20 meq PO DAILY [facility] Last Admin: 10/20/24 09:37 Dose: 20 meq Rivastigmine Tartrate (Rivastigmine Tartrate 1.5 Mg) 1.5 mg PO BID [facility] Last Admin: 10/20/24 09:37 Dose: 1.5 mg Sertraline HCl (Sertraline Hcl 50 Mg Tab) 50 mg PO DAILY [facility] Last Admin: 10/20/24 09:36 Dose: 50 mg Silver Sulfadiazine (Silver Sulfadiazine 1% 50 Gm) 1 appl TOP DAILY [facility] Last Admin: 10/19/24 09:00 Dose: 1 appl Assessment and plan: Diabetic neuropathy and diabetes mellitus Osteomyelitis status post amputation continue to have ischemic changes because of peripheral vascular disease Leukocytosis slightly improved Anemia of chronic disease Continue antibiotic and local wound care Monitor signs of infection with WBC and fever trends Physical Examination - Vital Signs Temperature: 98.0 F Blood Pressure: 133/62 Pulse: 70 Respirations: 18 Pulse Ox (%): 97 Assessment And Plan Physician Review: Patient Assessed, Agree with Above Assessment and Plan
--- NOTE | 2024-10-20 13:29 | P.PN ---
Subjective Date of Service: 10/20/24 Chief Complaint: Abdominal distention Subjective: Improving (Patient is pleasant and conversive no complaints.) Physical Examination - Vital Signs Temperature: 98.1 F Blood Pressure: 154/70 Pulse: 78 Respirations: 18 Pulse Ox (%): 98 - Physical Exam General: Alert, In no apparent distress, Cooperative Integumentary: Other (Focused examination of the lower extremity surgical site shows minimal dry ischemic necrosis to the very tips of the edge of the surgical site no obvious infection no cellulitis no drainage. Sutures remain in place) Assessment And Plan - Current Problems (Diagnosis) (1) Diabetic foot ulcer Current Visit: Yes Status: Acute Plan: Patient is a 69-year-old man who ultimately has diabetes and other medical comorbid conditions including significant peripheral arterial disease, he was taken for debridement of his toe Avenues he wanted attempted limb salvage. He had continued dry gangrenous changes of the toe he had an endovascular intervention which was unable to reperfuse the foot adequately and as such it was recommended he have an amputation of his great toe which was performed. At this point he requires additional endovascular intervention beyond the capabilities of this facility per the recommendations of our endovascular radiologist Dr. German. As such I recommend continued local wound care and endovascular intervention as soon as possible, continue antibiotic treatment as well. I have discussed case with the patient's daughter Brooke who agrees with the above-stated plan. Physician Review: Patient Assessed, Agree with Above Assessment and Plan
--- NOTE | 2024-10-20 14:18 | CON ---
History Of Present Illness: This is a 69-year-old male, I was consulted for cellulitis of the right foot. The patient had amputation for more involvement of the big toe and peripheral vascular disease causing him to have poor healing even to revascularization and might need another revascularization. Denies any headache, nausea, vomiting, chest pain, abdominal pain, constipation, or diarrhea. Shavonne michelle is the correction resident of [place] with significant past medical history of hypertension, diabetes mellitus, dementia, schizoaffective disorder, stroke with right-sided weakness, speech distu rbance with dysphagia, seizure disorder, coming in with abdominal distention of 2 days. The patient is currently being treated with Augmentin orally. Denies any other problems. Past Medical History: As per HPI. Social History: Nonsmoker. Nondrinker. Family History: Noncontributory. Medications: Augmentin. See [facility] for other medications. Allergies: NO KNOWN DRUG ALLERGIES. Review of Systems: A 10-point review was performed. Physical Examination: General: This is a 69-year-old male, lying in bed, not in any acute cardiopulmonary distress. Vital Signs: Temperature 98, pulse 77, respirations 14, blood pressure 151/73. HEENT: Unremarkable. Neck: Supple. Lungs: Basal crackles. Heart: S1, S2. Regular. Abdomen: Soft, nontender. Bowel sounds present. Extremities: Trace edema, erythematous changes with some necrotic changes involving to the right kristen t. Laboratory Data: Shows WBC 14.1, hemoglobin 9.5, platelets 315. Chemistry shows BUN of 12, creatini ne 0.7. Micro data shows E coli and Strep agalactiae group B. Assessment And Plan: This is a 69-year-old male with multiple medical problems including diabetes me llitus, seizure disorder, peripheral vascular disease, status post revascularization and amputation o f right big toe. Continued to have ischemic and necrotic changes. We will recommend to restart IV Unasyn and vancomycin while the patient is in hospital. Leukocytosis. Anemia of chronic disease. D iabetic neuropathy. Moderate protein-calorie malnourishment. Prognosis is guarded. Consider long-t erm acute care. We will follow the patient as needed. NF/MODL Voice ID: [id number] Report ID: [id number]
--- NOTE | 2024-10-20 15:57 | P.PN ---
Subjective Date of Service: 10/20/24 Chief Complaint: Abdominal distention Patient has no new complain. No constipation or diarrhea. Patient states he feels fine. No major changes in right foot amputation stump wound. No recorded fever. Physical Examination - Vital Signs Temperature: 98.1 F Blood Pressure: 154/70 Pulse: 78 Respirations: 18 Pulse Ox (%): 98 Assessment And Plan - Plan Physical examination GEN: Alert, NAD CV: Regular rate and rhythm, no edema Pulm: Nonlabored respirations on room air, clear bilaterally ABD: soft, nontender, nondistended Integumentary: right foot surgical site dry gangrene. 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 Flores, general surgery consulted s/p I&D (10/13); found to have necrotic tissue, +abscess of great toe. Status post IV cefepime / vanc (10/11-10/15), transition to oral Augmentin ID Dr. Thorpe input appreciated. Augmentin changed to IV Unasyn and vancomycin per Dr. Thorpe recommendation. Blood cx (10/10): No growth Wound cx (10/13): E. coli initally, then Streptococcus Agalactiae Grp B grew later Dr. Henry, vascular consulted; has been seeing patient for PVD/venous insufficiency since 2020. arterial doppler (10/14): moderate PVD throughout most of the right lower extremity CTA lower extremity (10/16): PVD with high-grade stenoses and/or occlusions of 2 of the 3 runoff vessels bilaterally. The peroneal arteries are patent throughout but the bilateral anterior tibial and posterior tibial arteries have multifocal stenoses CTA pelvis (10/16): Severe stenosis origin of the left internal iliac artery. No significant abnormality involving the common iliac and external iliac arteries bilaterally CTA abdomen (10/16): No significant arterial disease. Small bilateral pleural effusions. Cholelithiasis. s/p Right leg cath with right leg arteriogram, now s/p Right popliteal balloon angioplasty (10/16) s/p partial ray amputation of right great toe (10/16) Dr. Henry would like to follow-up patient next week for angiogram. Continue antiplatelet therapy on discharge. Dr. Thorpe [place] syndrome Hypokalemia CT abdomen (10/10): Chronic dilatation of the colon. Mild prostatic enlargement. Patient with chronic colonic dilatation. Patient denies diarrhea or constipation. Monitor and replete electrolytes as needed Elevated troponin - suspect demand ischemia Initial troponin mildly elevated. Suspect demand ischemia. Patient is asymptomatic. no further work up. IDDM2 Accu-cheks, SSI Hypertension Dementia Seizure disorder Hx of CVA with dysphagia Continue home medications. VTE: Lovenox Code: Full Dispo: [place] resident Time Spent Managing Pts Care (In Minutes): 47
[2024-10-20] MEDS: VANCOMYCIN 1.5 GM in NA CHLORIDE 0.9% 500 ML IVPB SCH (17:00)
[2024-10-20] MEDS: AMPICILLIN/SULBACT 3 GM in NA CHLORIDE 0.9% 100 ML IVPB SCH (17:32)
[2024-10-20] MEDS ORDERED: CEFEPIME 2 GM in NA CHLORIDE 0.9% 100 ML IV SCH (21:00)
[2024-10-21 05:23] LABS: Absolute Basophils 0.1 K/uL (0-0.5); Absolute Eosinophils 0.5 K/uL (0-0.5); Absolute Lymphocytes (CBC) 0.8 K/uL (0.7-4.9); Absolute Monocytes 1.6 K/uL (0.1-1.3); Absolute Neutrophil 10.7 K/uL (1.8-8.0); Basophils % 0.4 % (0-1.3); Eosinophils % 3.5 % (0-4.4); Hematocrit 28.9 % (39.6-49.0); Hemoglobin 9.9 g/dL (13.6-17.9); MCH 27.5 pg (27.0-35.0); MCHC 34.1 g/dL (32.0-36.0); MCV 80.6 fL (80-100); MPV 6.8 fL (7.6-11.3); Monocytes % 11.5 % (3.3-12.3); Neutrophils % 78.6 % (41.7-73.7); Platelets 343 thou/uL (152-406); RBC Red Blood Cell Count 3.59 M/uL (4.33-5.43); Red Cell Distribution Width 16.8 % (12.1-15.2)
[2024-10-21 10:00] LABS: Anisocytosis 1+; Atypical Lymphocytes 1 %; Band Neutrophils 1 % (0-1); Blood Morphology Comment NOTED (NOT SEEN); Differential Total Cells Count 100; Eosinophils 2 % (0-3); Lymphocytes 8 % (15-42); Metamyelocytes 1 % (0-0); Monocytes 8 % (0-10); Platelet Estimate ADEQ; Segmented Neutrophils 79 % (40-80)
[2024-10-21 12:42] VITALS: O2SAT 99
--- NOTE | 2024-10-21 13:48 | P.DS ---
Admission Date: 10/10/24 Discharge Date: 10/21/24 Disposition: TRANSFER TO SNF - MEDICAL Discharge Condition: FAIR Reason for Admission: Abdominal distention Hospital Course: Problem List: Right great toe abscess with necrosis, now s/p I&D (10/13) Critical Right popliteal stenosis s/p balloon angioplasty (10/16) Moderate PVD Right Lower Extremity, now s/p partial ray amputation of Right great toe (10/16) Severe left internal iliac stenosis Left foot callus Delmy syndrome Hypokalemia Elevated troponin - suspect demand ischemia Hypertension Dementia Seizure disorder IDDM2 Hx of CVA with dysphagia Patient presented with generalized weakness, fever, worsening nonhealing right toe wound. Patient was evaluated by Dr. Flores, general surgeon and underwent I&D of infected right great toe abscess with necrosis on 10/13. Post-op arterial doppler noted moderate PVF throughout most of the right lower extremity. Patient was evaluated by Dr. Henry, vascular surgeon who recommended Right leg cath with right leg arteriogram to further evaluate. CTA findings as noted below. Patient underwent right leg cath with right leg arteriogram, now s/p Right popliteal balloon angioplasty on 10/16. Patient also underwent partial ray amputation of Right great toe on 10/16. Dr. Henry is planning to reevaluate patient for another angiogram and PCI as needed. Dr. German plan to call the [facility] to schedule a follow-up. Patient also need to follow up with Dr. Flores in wound healing center for continued management, local wound care. Patient will need to continue anti-platelet therapy on discharge. Medications: Follow up: PCP 3-[address] Flores in office in ~[address] Henry will call the [facility] next week to arrange for follow-up angiogram. Please call to schedule / confirm appointments CTA lower extremity (10/16): PVD with high-grade stenoses and/or occlusions of 2 of the 3 runoff vessels bilaterally. The peroneal arteries are patent throughout but the bilateral anterior tibial and posterior tibial arteries have multifocal stenoses CTA pelvis (10/16): Severe stenosis origin of the left internal iliac artery. No significant abnormality involving the common iliac and external iliac arteries bilaterally CTA abdomen (10/16): No significant arterial disease. Small bilateral pleural effusions. Cholelithiasis. Vital Signs/Physical Exam: Temp Pulse Resp BP Pulse Ox 97.8 F 79 15 140/66 99 10/21/24 08:00 10/21/24 08:00 10/21/24 08:00 10/21/24 08:00 10/21/24 08:00 General: Alert, Oriented x2 HEENT: Mucous membr. moist/pink, Sclerae nonicteric Neck: Supple, JVD not distended Respiratory: Clear to auscultation bilaterally, Normal air movement Cardiovascular: No edema, Regular rate/rhythm, Normal S1 S2 Gastrointestinal: Soft and benign, Distended (Mildly distended-chronic.) Musculoskeletal: Other (Right great toe amputation) Integumentary: Other (Right great toe amputation wound with areas of dry gangrene.) Neurological: Normal strength at 5/5 x4 extr Laboratory Data at Discharge: WBC 13.70 thou/uL (4.3-10.9) H 10/21/24 04:47 Hgb 9.9 g/dL (13.6-17.9) L 10/21/24 04:47 Hct 28.9 % (39.6-49.0) L 10/21/24 04:47 Plt Count 343 thou/uL (152-406) 10/21/24 04:47 PT 13.9 SECONDS (9.4-12.5) H 10/10/24 20:05 INR 1.33 10/10/24 20:05 Sodium 136 mEq/L (136-145) 10/21/24 04:47 Potassium 4.0 mEq/L (3.5-5.1) 10/21/24 04:47 BUN 13 mg/dL (7-18) 10/21/24 04:47 Creatinine 0.62 mg/dL (0.70-1.30) L 10/21/24 04:47 Glucose 138 mg/dL (74-106) H 10/21/24 04:47 Phosphorus Cancelled 10/20/24 05:00 Magnesium 2.2 mg/dL (1.6-2.4) 10/20/24 04:42 Total Bilirubin 0.9 mg/dL (0.2-1.0) 10/11/24 07:15 AST < 10 U/L (15-37) L 10/11/24 07:15 ALT < 14 U/L (16-61) L 10/11/24 07:15 Alkaline Phosphatase 50 U/L (45-117) 10/11/24 07:15 Lipase 19 U/L (13-75) 10/10/24 20:05 Home Medications: Atorvastatin Calcium 40 mg PO BEDTIME 05/31/21 Clopidogrel Bisulfate [Plavix] 75 mg PO DAILY 05/31/21 Furosemide [Lasix] 20 mg PO DAILY 05/31/21 Insulin Glargine,Hum.rec.anlog [Lantus] 26 unit SQ BID 05/31/21 Acetaminophen [Tylenol] 650 mg PO Q4HP PRN 05/20/24 Amlodipine [Norvasc*] 5 mg PO DAILY 05/20/24 Aripiprazole [Abilify] 5 mg PO BEDTIME 05/20/24 Aspirin 325 mg PO DAILY 05/20/24 Divalproex [Depakote Sprinkle*] 4 cap PO BID 05/20/24 Gabapentin [Neurontin*] 100 mg PO DAILY 05/20/24 Omeprazole 20 mg PO DAILY 05/20/24 Potassium Chloride 20 meq PO DAILY 05/20/24 Rivastigmine Tartrate [Rivastigmine] 1.5 mg PO BID 05/20/24 Sertraline HCl 50 mg PO DAILY 05/20/24 Sitagliptin Phosphate [Januvia] 100 mg PO DAILY 05/20/24 levETIRAcetam [Keppra] 10 ml PO BID 05/20/24 Lactulose 30 ml PO Q12HP PRN 06/10/24 Levothyroxine Sodium 125 mcg PO 0600 06/10/24 Insuln Asp Prt/Insulin Aspart [Novolog Mix 70-30 Vial] See Protocol SQ BID 10/11/24 Lactobacillus Combination No.4 [Probiotic] 2 cap PO DAILY 10/11/24 Metoprolol Tartrate [Lopressor*] 25 mg PO BID 10/11/24 Simethicone [Gas Relief] 125 mg PO Q6HP PRN 10/11/24 Bisacodyl [Dulcolax*] 10 mg GA DAILY PRN #0 supp 10/21/24 Collagenase [Santyl Ointment*] 1 appl TOP DAILY tube 10/21/24 Hydrocodone 5/APAP 325 [[place] 5/325] 1 tab PO Q6H PRN #15 tab 10/21/24 Silver Sulfadiazine Crm [Silvadene*] 1 appl TOP DAILY tube 10/21/24 New Medications: Hydrocodone 5/APAP 325 [[place] 5/325] 1 tab PO Q6H PRN #15 tab PRN Reason: Pain Physician Discharge Instructions: Physician discharge instructions: Patient presented with generalized weakness, fever, worsening nonhealing right toe wound. Patient was evaluated by Dr. Flroes, general surgeon and underwent I&D of infected right great toe abscess with necrosis on 10/13. Post-op arterial doppler noted moderate PVF throughout most of the right lower extremity. Patient was evaluated by Dr. Henry, vascular surgeon who recommended Right leg cath with right leg arteriogram to further evaluate. CTA findings as noted below. Patient underwent right leg cath with right leg arteriogram, now s/p Right popliteal balloon angioplasty on 10/16. Patient also underwent partial ray amputation of Right great toe on 10/16. Advised patient to follow up with Dr. Henry in 2 weeks for further management. Follow up with Dr. Flores in wound healing center for continued management, local wound care. Patient will need to continue anti-platelet therapy on discharge. Medications: Follow up: PCP 3-[address] Flores in office in ~[address] Henry in office in 2 weeks Please call to schedule / confirm appointments CTA lower extremity (10/16): PVD with high-grade stenoses and/or occlusions of 2 of the 3 runoff vessels bilaterally. The peroneal arteries are patent throughout but the bilateral anterior tibial and posterior tibial arteries have multifocal stenoses CTA pelvis (10/16): Severe stenosis origin of the left internal iliac artery. No significant abnormality involving the common iliac and external iliac arteries bilaterally CTA abdomen (10/16): No significant arterial disease. Small bilateral pleural effusions. Cholelithiasis. Diet: ADA Activity: Fall precautions Followup: Edilson Holman MD [Primary Care Provider] - Time spent managing pt's care (in minutes): 40
[2024-10-21 14:36] VITALS: BP 146/55; TEMP 98.1
--- NOTE | 2024-10-21 18:01 | P.PN ---
CC Leg wound, pain History of Present Illness Patient has a long-standing history of peripheral artery disease and also history of right leg wound. because of cyanosis to the great toe, he has had partial amputation of the great toe ray.he has had drug-coated balloon angioplasty of the popliteal artery. He has complete 100% occlusion of the anterior tibial and posterior tibial arteries. The patient is pending [facility] to the [facility]. We have been in communication with the facility as well as with the patient's family to arrange outpatient follow-up in 2 weeks, at which time we will determine if the patient needs pedal approach revascularization of the tibial arteries to further help in wound healing. The patient and his family are agreeable to this treatment strategy. ROS Constitutional: (-)fever, (-)night sweats, (-)chills, (-)cold intolerance, (+)fatigue, (-)daytime somnelence, (-)weight gain, (-)weight loss, (- )polydipsia, (-)polyphagia, (-)anorexia Eyes: (-)change in vision, (-)loss of vision, (-)blurred vision, (-)diplopia, (- )eye redness, (-)eye pain Ears: (-)difficulty hearing, (+)hearing loss, (-)ear pain/ear ache, (-)ear drainage Nose: (-)nasal congestion, (-)nasal discharge, (-)epistaxis, (-)sneezing, (+)snoring Mouth/Throat/Voice: (-)lip sores, (-)mouth sores, (-)tongue sores, (-)sore throat, (-)dysphagia, (-)odynophagia, (-)gum bleeding, (-)dental problems Neck: (-)neck pain, (-)neck stiffness, (-)neck lumps Respiratory: (-)dyspnea, (-)cough, (-)cough productive of sputum, (-)hemoptysis Cardiovascular: (-)chest pain, (-)palpitations, (-)dyspnea at rest, (-)dyspnea with activity, (-)orthopnea, (-)paroxysmal nocturnal dyspnea, (-)lower extremity edema, (+)varicosities Gastrointestinal: (-)abdominal pain, (-)rectal pain, (+)nausea, (+)vomiting, (- )vomiting blood, (-)flatulence, (-)decreased frequency of bowel movements, (- )constipation, (-)increased frequency of bowel movements, (-)diarrhea, (-)fecal incontinence Dermatologic/Integumentary: (-)change in hair texture, (+)change in skin texture, (-)change in nail appearance, (-)dry hair, (-)brittle hair, (-)hair loss, (-)dry skin, (-)itching, (-)hives, (-)rash, (-)bruising, (-)new mole(s), (+)skin sores Musculoskeletal: (-)muscle pain, (-)back pain, (-)tender points, (-)muscle cramps, (+)muscle weakness, (+)decreased muscle strength, (-)limb paralysis, (+)difficulty walking, (-)limp Neurological: (-)headaches, (-)vertigo, (-)lightheadedness, (-)fainting, (- )blackout(s), (+)numbness, (+)tingling, (-)tremor, (+)lack of coordination, (+)weakness, (+)difficulty speaking, (+)memory loss, (+)difficulty concentrating Psychiatric: (-)change in mood, (+)depression, (-)sadness interfering with function, (-)anxiety, (-)nervousness, (-)sleep disturbance, (-)suicidal ideation Temp Pulse Resp BP Pulse Ox 98.1 F 85 16 146/55 H 100 10/21/24 12:00 10/21/24 12:00 10/21/24 12:00 10/21/24 12:10/21/24 12:00 Laboratory Last Values WBC 14.40 thou/uL (4.3-10.9) H 10/10/24 20:05 RBC 3.75 M/uL (4.33-5.43) L 10/10/24 20:05 Hgb 10.2 g/dL (13.6-17.9) L 10/10/24 20:05 Hct 30.7 % (39.6-49.0) L 10/10/24 20:05 MCV 81.8 fL (80-100) 01/25/25 20:05 MCH 27.3 pg (27.0-35.0) 10/10/24 20:05 MCHC 33.4 g/dL (32.0-36.0) 10/10/24 20:05 RDW 16.6 % (12.1-15.2) H 10/10/24 20:05 Plt Count 219 thou/uL (152-406) 10/10/24 20:05 MPV 8.1 fL (7.6-11.3) 10/10/24 20:05 Neutrophils % 82.0 % (41.7-73.7) H 10/10/24 20:05 Lymphocytes % 4.7 % (15.3-44.8) L 10/10/24 20:05 Monocytes % 12.9 % (3.3-12.3) H 10/10/24 20:05 Eosinophils % 0.2 % (0-4.4) 10/10/24 20:05 Basophils % 0.2 % (0-1.3) 10/10/24 20:05 Absolute Neutrophils 11.8 K/uL (1.8-8.0) H 10/10/24 20:05 Absolute Lymphocytes 0.7 K/uL (0.7-4.9) 10/10/24 20:05 Absolute Monocytes 1.9 K/uL (0.1-1.3) H 10/10/24 20:05 Absolute Eosinophils 0.0 K/uL (0-0.5) 10/10/24 20:05 Absolute Basophils 0.0 K/uL (0-0.5) 10/10/24 20:05 PT 13.9 SECONDS (9.4-12.5) H 10/10/24 20:05 INR 1.33 10/10/24 20:05 Sodium 138 mEq/L (136-145) 10/10/24 20:05 Potassium 2.9 mEq/L (3.5-5.1) L 10/10/24 20:05 Chloride 103 mEq/L (98-107) 10/10/24 20:05 Carbon Dioxide 27 mEq/L (21-32) 10/10/24 20:05 Anion Gap 10.9 mEq/L (5.0-15.0) 10/10/24 20:05 BUN 24 mg/dL (7-18) H 10/10/24 20:05 Creatinine 1.01 mg/dL (0.70-1.30) 10/10/24 20:05 Est GFR (CKD-EPI) 81 ml/min (=/>90) L 10/10/24 20:05 Glucose 255 mg/dL (74-106) H 10/10/24 20:05 Calcium 8.8 mg/dL (8.5-10.1) 10/10/24 20:05 Magnesium 2.1 mg/dL (1.6-2.4) 10/10/24 20:05 Total Bilirubin 0.8 mg/dL (0.2-1.0) 10/10/24 20:05 Direct Bilirubin 0.2 mg/dL (0-0.2) 10/10/24 20:05 Indirect Bilirubin 0.6 mg/dL (0.2-0.8) 10/10/24 20:05 AST < 10 U/L (15-37) L 10/10/24 20:05 ALT < 14 U/L (16-61) L 10/10/24 20:05 Alkaline Phosphatase 62 U/L (45-117) 10/10/24 20:05 Troponin I High Sens 62.0 pg/mL (<58.9) H* 10/10/24 20:05 C-Reactive Protein 59.40 mg/L (<3.00) H 10/10/24 20:05 NT-Pro-B Natriuret Pep 465 pg/mL (<125) H 10/10/24 20:05 Serum Total Protein 6.5 g/dL (6.4-8.2) 10/10/24 20:05 Albumin 2.7 g/dL (3.4-5.0) L 10/10/24 20:05 Globulin 3.8 g/dL (2.3-3.5) H 10/10/24 20:05 Albumin/Globulin Ratio 0.7 (1.1-1.8) L 10/10/24 20:05 Lipase 19 U/L (13-75) 10/10/24 20:05 SARS-CoV-2 Ag (Rapid) Negative (Negative) 10/10/24 19:50 Physical Exam GEN: NAD, cooperative with exam, well groomed, well developed, well nourished HEENT: Head normocephalic, atraumatic, head normocephalic, head atraumatic, EOMI NECK: full range of motion, trachea midline, no increased JVP visible RESP: no respiratory distress, no use of accessory muscles of respiration CV: regular rate and rhythm , pulse rate regular GI: NL abdominal inspection, soft, nontender to palpation, no rebound/guarding/rigidity DERM: (-)diaphoresis, (-)periorbital xanthelasma, (-)xanthomas, (-)cyanosis PSYCH: alert and oriented to time, place, and person, normal mood, normal affect Plan 1.patient has had revascularization of the right popliteal artery in-stent restenosis 2. He has complete 100% occlusion of the anterior tibial and posterior tibial arteries 3. Follow-up as outpatient in 2 weeks to assess the amputation margin. If he has poor healing, he will need pedal approach revascularization of the tibial artery occlusions.
--- NOTE | 2024-10-21 18:10 | PN ---
Subjective: The patient is lying in bed. No new acute event. Chart reviewed. The patient is somew hat confuse. Objective: Vital signs: Temperature 97.8, pulse 79, respiration 15, blood pressure 140/66. Lungs: Basal crackles. Heart: S1, S2. Regular. Abdomen: Soft, nontender. Bowel sounds present. Extremities: Foot wound noted. Laboratory Data: Shows WBC 13.7, hemoglobin 9.9, platelets 343. Chemistry shows BUN of 13, creatini ne 0.62. Wound cultures are growing E coli and Strep agalactiae group B. The patient is currently o n Unasyn and vancomycin. Assessment And Plan: 1. Status post amputation of big toe. The patient continue to have ischemic changes to the wound sit e. 2. Diabetes mellitus. 3. Diabetic neuropathy. 4. Peripheral vascular disease. 5. Leukocytosis. 6. Anemia of chronic disease. Continue empiric antibiotic with Unasyn and vancomycin. Monitor signs of infection. We will follow the patient as needed. NF/MODL Voice ID: [id number] Report ID: [id number]
== END 2024-10-21 18:02 | DRG 239 ==
LOC: ER 19:31 → ERHOLD 22:18 → 2ND 10-11 02:34
PROVIDERS: ADMIT Internal Medicine; ATTEND Internal Medicine
PROC: 0QBQ0ZZ Excision of Right Toe Phalanx, Open Approach (ICD-10-PCS; 2024-10-13)
PROC: 02HV33Z Insertion of Infusion Device into Superior Vena Cava, Percutaneous Approach (ICD-10-PCS; 2024-10-13)
PROC: 047M3Z1 Dilation of Right Popliteal Artery using Drug-Coated Balloon, Percutaneous Approach (ICD-10-PCS; 2024-10-16)
PROC: B41F1ZZ Fluoroscopy of Right Lower Extremity Arteries using Low Osmolar Contrast (ICD-10-PCS; 2024-10-16)
PROC: 0Y6M0Z9 Detachment at Right Foot, Partial 1st Ray, Open Approach (ICD-10-PCS; principal; 2024-10-16 15:15)
DX: E11.52 Type 2 diabetes mellitus with diabetic peripheral angiopathy with gangrene (principal); K63.1 Perforation of intestine (nontraumatic); I69.351 Hemiplegia and hemiparesis following cerebral infarction affecting right dominant side; K59.31 Toxic megacolon; I24.89 Other forms of acute ischemic heart disease; L02.611 Cutaneous abscess of right foot; E44.0 Moderate protein-calorie malnutrition; L03.031 Cellulitis of right toe; E11.65 Type 2 diabetes mellitus with hyperglycemia; E11.621 Type 2 diabetes mellitus with foot ulcer; L97.519 Non-pressure chronic ulcer of other part of right foot with unspecified severity; E87.6 Hypokalemia; K59.81 Ogilvie syndrome; L84 Corns and callosities; E03.9 Hypothyroidism, unspecified; I10 Essential (primary) hypertension; E78.00 Pure hypercholesterolemia, unspecified; E66.9 Obesity, unspecified; D63.8 Anemia in other chronic diseases classified elsewhere; G40.909 Epilepsy, unspecified, not intractable, without status epilepticus; D72.829 Elevated white blood cell count, unspecified; I70.8 Atherosclerosis of other arteries; I69.391 Dysphagia following cerebral infarction; R13.10 Dysphagia, unspecified; I25.10 Atherosclerotic heart disease of native coronary artery without angina pectoris; F03.90 Unspecified dementia, unspecified severity, without behavioral disturbance, psychotic disturbance, mood disturbance, and anxiety; B95.1 Streptococcus, group B, as the cause of diseases classified elsewhere; B96.20 Unspecified Escherichia coli [E. coli] as the cause of diseases classified elsewhere; R23.0 Cyanosis; Z79.4 Long term (current) use of insulin; Z95.1 Presence of aortocoronary bypass graft; Z79.82 Long term (current) use of aspirin; Z68.24 Body mass index [BMI] 24.0-24.9, adult; Z79.890 Hormone replacement therapy; Z79.899 Other long term (current) drug therapy; Z11.52 Encounter for screening for COVID-19
CPT/HCPCS: 36246; 36415; 37224; 71045; 71260; 72191; 73706; 74175; 74177; 76937; 80048; 80053; 80076; 80164; 80202; 81001; 81003; 82550; 82947; 83605; 83690; 83735; 83880; 84100; 84132; 84484; 85025; 85027; 85610; 86140; 87040; 87070; 87075; 87077; 87186; 87205; 87804; 87811; 88304; 88305; 93005; 93926; 93970; 96372; 99152; 99153; 99285; C1725; C1769; C1893; J0295; J0360; J0461; J0692; J1644; J1650; J1953; J2003; J2250; J2270; J2310; J2405; J2543; J2704; J2720; J3010; J3480; J3590; J7030; J7040; J7050; J7120; Q9967

== ENCOUNTER 2024-10-25 08:35 | Emergency (ER) | payer OTHER ==
--- NOTE | 2024-10-25 09:12 | RAD REPORT ---
EXAM: CT brain without contrast HISTORY: fall from bed, head injury COMPARISON: 09/06/2024 TECHNIQUE: Multiple contiguous axial images were obtained and a CT of the brain without contrast. Sag ittal and coronal reformats were performed. One or more of the following dose reduction techniques were used: Automated exposure control, adjust ment of the mA and/or kV according to patient size, and/or iterative reconstruction. FINDINGS: No evidence of hydrocephalus, intracranial hemorrhage, or extra-axial fluid collection. Moderate brain atrophy with moderate periventricular and deep white matter chronic microvascular isc hemic changes present. Large area of gliosis left parietal region likely related to remote infarction. No evidence of midline shift or areas of brain edema. The calvarium is intact. The visualized paranasal sinuses and mastoid air cells are essentially clear . IMPRESSION: No evidence of acute intracranial abnormality.
--- NOTE | 2024-10-25 09:14 | EDPHYS ---
Physician Documentation [facility] Name: Donaldo English Age: 69 yrs Sex: Male : 1955 Arrival Date: 10/25/2024 Time: 08:35 Bed 4 Private MD: ED Physician Anton Ly HPI: 10/25 08:40 This 69 yrs old Male presents to ER via EMS with complaints of Fall Injury. rn 08:40 Details of fall: The patient fell from a supine position, out of bed. Onset: The rn symptoms/episode began/occurred last night. Associated injuries: The patient sustained injury to the head. Severity of symptoms: At their worst the symptoms were mild, in the emergency department the symptoms are unchanged. The patient has not experienced similar symptoms in the past. The patient has not recently seen a physician. Patient brought in from longterm by EMS for fall from bed, hit head, denies any head pain. No nausea or vomiting. No neck pain or back pain. No rib pain. No abdominal pain. No extremity injury or pain. Sent from longterm for CT of the head.. Historical: - Allergies: 08:39 No Known Allergies; ph - PMHx: 08:39 Cerebrovascular accident; coronary atherosclerosis; Dementia; depressive disorder; ph diabetes mellitus; dysphasia (Speech disturbances); Hypertensive disorder; Hypothyroidism; Right sided weakness; schizoaffective disorder; Seizure; Speech disturbances; - Immunization history:: Adult Immunizations up to date. - Infectious Disease History:: Denies. - Social history:: Smoking status: unknown. - Family history:: not pertinent. - Hospitalizations: : No recent hospitalization is reported. ROS: 08:40 Constitutional: Negative for fever, chills, and weight loss, Neck: Negative for injury, rn pain, and swelling, Cardiovascular: Negative for chest pain, palpitations, and edema, Respiratory: Negative for shortness of breath, cough, wheezing, and pleuritic chest pain, Abdomen/GI: Negative for abdominal pain, nausea, vomiting, diarrhea, and constipation, Back: Negative for injury and pain, MS/Extremity: Negative for injury and deformity, Skin: Negative for injury, rash, and discoloration, Neuro: Negative for headache, weakness, numbness, tingling, and seizure, Exam: 08:40 Constitutional: This is a well developed, well nourished patient who is awake, alert, rn and in no acute distress. Head/Face: Normocephalic, atraumatic. Eyes: Pupils equal round and reactive to light, extra-ocular motions intact. No periorbital ecchymosis Neck: No midline cervical tenderness Chest/axilla: No rib tenderness or crepitus Cardiovascular: Regular rate and rhythm. No pulse deficits. Respiratory: No increased work of breathing, no retractions or nasal flaring. Abdomen/GI: Soft, non-tender Back: No spinal tenderness MS/ Extremity: Pulses equal, no cyanosis. Neurovascular intact. Full, normal range of motion. Equal circumference. Neuro: Awake and alert, GCS 15, oriented to person, place, time, and situation. Vital Signs: 08:37 BP 118 / 81; Pulse 62; Resp 18; Temp 97.8; Pulse Ox 100% on R/A; Weight 95.25 kg; ph Height 5 ft. 9 in. ; 08:37 Body Mass Index 31.01 (95.25 kg, 175.26 cm) ph Nickolas Coma Score: 08:42 Eye Response: spontaneous(4). Motor Response: obeys commands(6). Verbal Response: ph oriented(5). Total: 15. Trauma Score (Adult): 08:42 Eye Response: spontaneous(1); Verbal Response: oriented(1); Motor Response: obeys ph commands(2); Systolic BP: > 89 mm Hg(4); Respiratory Rate: 10 to 29 per min(4); Jenera Score: 15; Trauma Score: 12 MDM: 08:37 Medical Screening Exam initiated rn 09:13 Differential diagnosis: closed head injury, contusion. Data reviewed: vital signs, rn nurses notes, radiologic studies, CT scan, and as a result, I will discharge patient. Counseling: I had a detailed discussion with the patient and/or guardian regarding the historical points, exam findings, and any diagnostic results supporting the discharge/admit diagnosis, radiology results, the need for outpatient follow up, to return to the emergency department if symptoms worsen or persist or if there are any questions or concerns that arise at home. Special discussion: Based on the patient's history, exam and DX evaluation, there is no indication for emergent intervention or inpatient TX. It is understood by the patient/guardian that if the SXs persist or worsen they need to return immediately for re-evaluation. I discussed with the patient/guardian in detail that at this point there is no indication for admission to the hospital. It is understood, however, that if the symptoms persist or worsen the patient needs to return immediately for re-evaluation. 10/25 08:39 Order name: CT Head Brain wo Cont; Complete Time: 09:13 rn Administered Medications: No medications were administered Disposition Summary: 10/25/24 09:14 Discharge Ordered Notes: Location: Home rn Problem: new rn Symptoms: have improved rn Condition: Stable rn Diagnosis - Unspecified injury of head, initial encounter rn Followup: rn - With: Private Physician - When: As needed - Reason: Recheck today's complaints, Re-evaluation by your physician Discharge Instructions: - Discharge Summary Sheet rn - Head Injury, Adult rn Forms: - Medication Reconciliation Form rn - Antibiotic administrative intern - Prescription Opioid Use rn - Patient Portal Instructions rn - Leadership Thank You Letter rn Signatures: Dispatcher [employer] EDAnton Mcintosh MD MD rn Hall, Patricia, RN RN ph Corrections: (The following items were deleted from the chart) 08:40 08:40 Head Brain Wo Cont+CT.RAD.BRZ ordered. EDMS EDMS
--- NOTE | 2024-10-25 09:14 | ER ---
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 Pt has no complaints. Coronavirus screen: Vaccine status: Patient reports receiving the 2nd dose of the covid vaccine. Ebola Screen: No symptoms or risks identified at this time. Initial Sepsis Screen: Does the patient meet any 2 criteria? No. Patient's initial sepsis screen is negative. Does the patient have a suspected source of infection? No. Patient's initial sepsis screen is negative. Risk Assessment: Do you want to hurt yourself or someone else? Patient reports no desire to harm self or others. Onset of symptoms was October 25, 2024. 08:37 Method Of Arrival: EMS: [facility] 08:37 Acuity: LILIANA 3 08:43 Care prior to arrival: None. Mechanism of Injury: Fall from standing position. Trauma event details: Injury occurred in the [facility], Injury occurred: [facility] Injury occurred: October 25, 2024. Triage Assessment: 08:40 General: Appears in no apparent distress. Behavior is calm, cooperative. Pain: Denies ph pain. Neuro: Level of Consciousness is awake, alert, obeys commands, Oriented to person, place, situation. Cardiovascular: Capillary refill < 3 seconds in bilateral fingers Patient's skin is warm and dry. Respiratory: Airway is patent Respiratory effort is even, unlabored, Respiratory pattern is regular, symmetrical. Derm: Skin is pink, warm \T\ dry. Trauma Activation: Not Applicable Physician: ED Physician; Name: ; Notified At: ; Arrived At: Physician: General Surgeon; Name: ; Notified At: ; Arrived At: Physician: Radiology; Name: ; Notified At: ; Arrived At: Physician: Respiratory; Name: ; Notified At: ; Arrived At: Physician: Lab; Name: ; Notified At: ; Arrived At: Historical: - Allergies: 08:39 No Known Allergies; ph - PMHx: 08:39 Cerebrovascular accident; coronary atherosclerosis; Dementia; depressive disorder; ph diabetes mellitus; dysphasia (Speech disturbances); Hypertensive disorder; Hypothyroidism; Right sided weakness; schizoaffective disorder; Seizure; Speech disturbances; - Immunization history:: Adult Immunizations up to date. - Infectious Disease History:: Denies. - Social history:: Smoking status: unknown. - Family history:: not pertinent. - Hospitalizations: : No recent hospitalization is reported. Screenin:41 [facility] ED Fall Risk Assessment (Adult) History of falling in the last 3 months, ph including since admission No falls in past 3 months (0 pts) Confusion or Disorientation No (0 pts) Intoxicated or Sedated No (0 pts) Impaired Gait No (0 pts) Mobility Assist Device Used No (0 pt) Altered Elimination No (0 pt) Score/Fall Risk Level 0 - 2 = Low Risk Oriented to surroundings, Maintained a safe environment, Hourly rounding (assess needs \T\ fall precautionary measures) done, Used ambulatory aids as needed (educated on \T\ assisted with). Abuse screen: Denies threats or abuse. Denies injuries from another. Nutritional screening: No deficits noted. Tuberculosis screening: No symptoms or risk factors identified. Primary Survey: 08:42 NO uncontrolled hemorrhage observed. A: The client is awake and alert. The airway is ph patent. Breathing/Chest: Spontaneous respiratory effort, equal unlabored respirations, breath sounds clear bilaterally, regular pattern, symmetrical chest rise and fall. Circulation: No external hemorrhage present. Regular and strong central pulse, skin warm/dry/normal color. Disability Pupils are equal, round, reactive to light and accommodation. Client is alert. Exposure/Environment: There is no evidence of uncontrolled external bleeding. No obvious injuries are noted at this time. A warming method has been applied: A warm blanket has been provided to the patient. Assessment: 08:42 General: Appears in no apparent distress. comfortable, Behavior is calm, cooperative. ph Pain: Denies pain. Neuro: Level of Consciousness is awake, alert, obeys commands, Oriented to person, place, time, situation. Cardiovascular: Capillary refill < 3 seconds in bilateral fingers Patient's skin is warm and dry. Derm: Skin is pink, warm \T\ dry. 09:27 Reassessment: attempt to call report to [facility], no answer. iw 09:36 Reassessment: called [facility], states the nurse is really busy and she will have iw her call me back. 10:07 Reassessment: report given to [facility], will set up transport back to facility. iw Vital Signs: 08:37 BP 118 / 81; Pulse 62; Resp 18; Temp 97.8; Pulse Ox 100% on R/A; Weight 95.25 kg; ph Height 5 ft. 9 in. ; 08:37 Body Mass Index 31.01 (95.25 kg, 175.26 cm) ph Nickolas Coma Score: 08:42 Eye Response: spontaneous(4). Motor Response: obeys commands(6). Verbal Response: ph oriented(5). Total: 15. Trauma Score (Adult): 08:42 Eye Response: spontaneous(1); Verbal Response: oriented(1); Motor Response: obeys ph commands(2); Systolic BP: > 89 mm Hg(4); Respiratory Rate: 10 to 29 per min(4); Nickolas Score: 15; Trauma Score: 12 ED Course: 08:36 Patient arrived in ED. ph 08:37 Anton Ly MD is Attending Physician. rn 08:39 Triage completed. ph 08:40 Arm band placed on Patient placed in an exam room, on a stretcher, on media monitor, ph on pulse oximetry. 08:43 Patient has correct armband on for positive identification. Bed in low position. Call ph light in reach. Side rails up X 1. Pulse ox on. NIBP on. nuclear monitoring technician on. Door closed. Noise minimized. Warm blanket given. 08:44 Patient maintains SpO2 saturation greater than 95% on room air. Thermoregulation: warm ph blanket given to patient. 09:04 CT Head Brain wo Cont In Process Unspecified. EDMS 13:00 Belen Mcghee, RN is Primary Nurse. ph Administered Medications: No medications were administered Medication: 08:43 VIS not applicable for this client. ph Outcome: 09:14 Discharge ordered by . rn 13:00 Patient left the ED. ph Signatures: Dispatcher [employer] EDKY Judy Ruiz RN RN Anton Ly MD MD rn Hall, Patricia, RN RN ph
[2024-10-25 13:05] VITALS: BP 118/81; TEMP 97.8; O2SAT 100
== END 2024-10-25 13:00 | disposition home or self-care (01) ==
LOC: ER 08:35
DX: S09.90XA Unspecified injury of head, initial encounter (principal); W06.XXXA Fall from bed, initial encounter
CPT/HCPCS: 70450; 99284

== ENCOUNTER 2024-10-28 13:07 | Inpatient (IN) | payer OTHER ==
[2024-10-28] MEDS ORDERED: NA CHLORIDE 0.9% 500 ML ONE (13:38)
[2024-10-28 13:58] LABS: Absolute Basophils 0.1 K/uL (0-0.5); Absolute Eosinophils 0.2 K/uL (0-0.5); Absolute Lymphocytes (CBC) 0.7 K/uL (0.7-4.9); Absolute Monocytes 0.8 K/uL (0.1-1.3); Absolute Neutrophil 8.5 K/uL (1.8-8.0); Basophils % 0.5 % (0-1.3); Eosinophils % 2.3 % (0-4.4); Hematocrit 26.5 % (39.6-49.0); Hemoglobin 9.1 g/dL (13.6-17.9); Lymphocytes % 6.8 % (15.3-44.8); MCH 27.6 pg (27.0-35.0); MCHC 34.3 g/dL (32.0-36.0); MCV 80.4 fL (80-100); MPV 7.1 fL (7.6-11.3); Monocytes % 7.8 % (3.3-12.3); Neutrophils % 82.6 % (41.7-73.7); Nucleated Red Blood Cells % 0.1 % (0-0); Platelets 338 thou/uL (152-406); RBC Red Blood Cell Count 3.29 M/uL (4.33-5.43); Red Cell Distribution Width 16.8 % (12.1-15.2)
[2024-10-28 14:10] LABS: AST/SGOT 12 U/L (15-37); Albumin 2.2 g/dL (3.4-5.0); Albumin/Globulin Ratio 0.6 (1.1-1.8); Alkaline Phosphatase 61 U/L (45-117); Anion Gap 8.2 mEq/L (5.0-15.0); BUN Blood Urea Nitrogen 10 mg/dL (7-18); Bicarbonate 28 mEq/L (21-32); Bilirubin Total 0.5 mg/dL (0.2-1.0); Globulin 3.8 g/dL (2.3-3.5); Glomerular Filtration Rate 97 ml/min (=/>90); Glucose Level 239 mg/dL (74-106); Potassium 3.2 mEq/L (3.5-5.1); Sodium Level 137 mEq/L (136-145)
[2024-10-28] MEDS ORDERED: LORazepam 2 MG/ML VIAL ONE (14:23)
[2024-10-28] MEDS ORDERED: LEVETIRACETAM 500 MG/5 ML VIAL IV ONE (14:24)
[2024-10-28] MEDS ORDERED: NA CHLORIDE 0.9% 100 ML ONE (14:24)
[2024-10-28 14:31] LABS: ALT/SGPT < 14 U/L (16-61)
--- NOTE | 2024-10-28 14:33 | RAD REPORT ---
EXAMINATION: XR RIGHT FOOT CLINICAL INDICATION: Male, 69 years old. PAIN TECHNIQUE: Multiple views of the right foot were obtained. COMPARISON: No prior exam. FINDINGS: Evidence of prior fifth toe amputation. Amputation of the first metatarsal also present wit h mild residual base of the metatarsal present. Small posterior and large plantar calcaneal spur. No acute fracture seen.
--- NOTE | 2024-10-28 14:33 | RAD REPORT ---
EXAMINATION: ONE VIEW CHEST XR CLINICAL INDICATION: COUGH TECHNIQUE: Frontal chest projection is submitted. Examination is limited by patient positioning and t echnique. COMPARISON: 10/10/2024 FINDINGS: Mild interstitial prominence, unchanged. The heart is upper limit of normal in size. No displaced fra ctures identified. Sternotomy wires. IMPRESSION: No acute intrathoracic abnormalities.
--- NOTE | 2024-10-28 15:05 | RAD REPORT ---
EXAMINATION: US BILATERAL LOWER EXTREMITY VENOUS DOPPLER CLINICAL INDICATION: PAIN TECHNIQUE: Complete bilateral duplex sonography of the BILATERAL lower extremity veins was performed. The examination included compression for vein patency, color Doppler imaging and flow augmentation in response to distal compression of the distal external iliac, common femoral, femoral, popliteal, t ibial, and great and small saphenous veins. COMPARISON: No prior exam. FINDINGS: Duplex sonography testing of the veins of the BILATERAL lower extremity was performed. Color flow snow ging shows all veins to be compressible with [id number] color filling. Pulsatile and phasic flow is present within all lower extremity deep and superficial veins examined. IMPRESSION: There is no deep vein or superficial vein thrombosis.
--- NOTE | 2024-10-28 15:06 | RAD REPORT ---
EXAMINATION:Lower Extremity Artery Uni Ltd CLINICAL INDICATION: Male, 69 years old. PAIN RIGHT TECHNIQUE: Arterial duplex ultrasound was performed of the right lower extremity with real-time, colo r-flow, and spectral wave Doppler evaluation. COMPARISON: 10/16/2024 FINDINGS: Mild plaque throughout the evaluated arterial system. Triphasic/biphasic waveforms are seen throughout the evaluated right lower extremity arterial system, to the level of the popliteal artery. Monophasic flow is seen right posterior tibial and dorsalis pedis artery. IMPRESSION: Moderately severe right-sided infrapopliteal peripheral vascular disease with monophasic flow noted.
--- NOTE | 2024-10-28 17:44 | EDPHYS ---
Physician Documentation [facility] Name: Donaldo English Age: 69 yrs Sex: Male : 1955 Arrival Date: 10/28/2024 Time: 13:07 Bed 19 Private MD: ED Physician Jac Ramos HPI: 10/28 17:38 This 69 yrs old Male presents to ER via EMS with complaints of Foot Pain, marian Wound Check. 17:38 The patient presents with decreased range of motion, pain, that is acute. The marian complaints affect the right foot. Context: The problem was sustained at home, resulted from a chronic condition, sp surgery. Onset: The symptoms/episode began/occurred this morning, today. Modifying factors: The symptoms are alleviated by nothing, the symptoms are aggravated by weight bearing, movement. Associated signs and symptoms: Pertinent positives: calf tenderness. Severity of symptoms: At their worst the symptoms were moderate, in the emergency department the symptoms are unchanged. The patient has experienced similar episodes in the past, multiple times. Historical: - Allergies: 13:28 No Known Allergies; kc6 - PMHx: 13:28 Cerebrovascular accident; coronary atherosclerosis; Dementia; depressive disorder; kc6 diabetes mellitus; dysphasia (Speech disturbances); Hypertensive disorder; Hypothyroidism; Right sided weakness; schizoaffective disorder; Seizure; Speech disturbances; - PSHx: 13:28 Unable to Obtain; kc6 - Immunization history:: Adult Immunizations unknown. - Infectious Disease History:: Denies. - Social history:: Smoking status: unknown. - Family history:: not pertinent. ROS: 17:38 Constitutional: Negative for fever, chills, and weight loss, Eyes: Negative for injury, marian pain, redness, and discharge, ENT: Negative for injury, pain, and discharge, Neck: Negative for injury, pain, and swelling, Cardiovascular: Negative for chest pain, palpitations, and edema, Respiratory: Negative for shortness of breath, cough, wheezing, and pleuritic chest pain, Abdomen/GI: Negative for abdominal pain, nausea, vomiting, diarrhea, and constipation, Back: Negative for injury and pain, : Negative for injury, bleeding, discharge, and swelling, Skin: Negative for injury, rash, and discoloration, Psych: Negative for depression, anxiety, suicide ideation, homicidal ideation, and hallucinations, Allergy/Immunology: Negative for hives, rash, and allergies, Endocrine: Negative for neck swelling, polydipsia, polyuria, polyphagia, and marked weight changes, Hematologic/Lymphatic: Negative for swollen nodes, abnormal bleeding, and unusual bruising, 17:38 MS/extremity: Positive for decreased range of motion, erythema, pain, swelling, tenderness, of the lateral aspect of right calf, right ankle, lateral aspect of right foot, medial aspect of right calf, medial aspect of right foot, right lopez, anterior aspect of right ankle and dorsum of right foot, 17:38 Skin: Positive for cellulitis, erythema, swelling, of the right third toe, right fourth toe and right fifth toe, Exam: 17:38 Constitutional: This is a well developed, well nourished patient who is awake, alert, marian and in no acute distress. Head/Face: Normocephalic, atraumatic. Eyes: Pupils equal round and reactive to light, extra-ocular motions intact. Lids and lashes normal. Conjunctiva and sclera are non-icteric and not injected. Cornea within normal limits. Periorbital areas with no swelling, redness, or edema. ENT: Nares patent. No nasal discharge, no septal abnormalities noted. Tympanic membranes are normal and external auditory canals are clear. Oropharynx with no redness, swelling, or masses, exudates, or evidence of obstruction, uvula midline. Mucous membranes moist. Neck: Trachea midline, no thyromegaly or masses palpated, and no cervical lymphadenopathy. Supple, full range of motion without nuchal rigidity, or vertebral point tenderness. No Meningismus. Chest/axilla: Normal chest wall appearance and motion. Nontender with no deformity. No lesions are appreciated. Cardiovascular: Regular rate and rhythm with a normal S1 and S2. No gallops, murmurs, or rubs. Normal PMI, no JVD. No pulse deficits. Respiratory: Lungs have equal breath sounds bilaterally, clear to auscultation and percussion. No rales, rhonchi or wheezes noted. No increased work of breathing, no retractions or nasal flaring. Abdomen/GI: Soft, non-tender, with normal bowel sounds. No distension or tympany. No guarding or rebound. No evidence of tenderness throughout. Back: No spinal tenderness. No costovertebral tenderness. Full range of motion. Psych: Awake, alert, with orientation to person, place and time. Behavior, mood, and affect are within normal limits. 17:38 ECG was reviewed by the Attending Physician. 20:30 ECG was reviewed by the Attending Physician. [facility] Vital Signs: 13:26 BP 141 / 60; Pulse 81; Resp 18 S; Temp 97.5(O); Pulse Ox 100% on R/A; Weight 91.17 kg kc6 (M); Height 5 ft. 8 in. (R); 15:35 BP 139 / 63; Pulse 90; Resp 18 S; Pulse Ox 100% on R/A; kc6 18:16 BP 133 / 66; Pulse 89; Resp 16 S; Pulse Ox 98% on R/A; kc6 18:57 BP 144 / 58; Pulse 95; Resp 16 S; Pulse Ox 99% on R/A; Pain 0/10; kc6 20:41 BP 120 / 93; Pulse 93; Resp 19; Pulse Ox 99% on R/A; ay 13:26 Body Mass Index 30.56 (91.17 kg, 172.72 cm) kc6 18:57 Pain Scale: Adult kc6 MDM: 13:28 Medical Screening Exam initiated [facility] 17:48 Differential diagnosis: arthritis, gout, cellulitis, osteomyelitis. Data reviewed: [facility] vital signs, nurses notes, lab test result(s), EKG, radiologic studies, plain films, ultrasound, arterial doppler. Consideration of Admission/Observation Patient was admitted/placed on observation. Escalation of care including admission/observation considered. I considered the following discharge prescriptions or medication management in the emergency department Medications were administered in the Emergency Department. See MAR. Independent interpretation of the following test(s) in the Emergency Department X-Ray: My interpretation is no fx. Test considered but Not performed: MRI: no mri foot. Historians other than the Patient: EMS: ems well informed. External Records Reviewed: Inpatient record: [facility] recent. Care significantly affected by the following chronic conditions: Diabetes, Hypertension, cad, pvd, dementia. Counseling: I had a detailed discussion with the patient and/or guardian regarding the historical points, exam findings, and any diagnostic results supporting the discharge/admit diagnosis, lab results, radiology results, the need for further work-up and treatment in the hospital. 10/28 13:36 Order name: CBC with Diff; Complete Time: 14:16 [facility] 10/28 13:36 Order name: Comprehensive Metabolic Panel; Complete Time: 17:05 [facility] 10/28 13:36 Order name: CRP; Complete Time: 17:05 [facility] 10/28 14:16 Order name: Depakote; Complete Time: 17:05 [facility] 10/28 19:05 Order name: Basic Metabolic Panel EDAZ 10/28 19:05 Order name: Basic Metabolic Panel EDMS 10/28 19:05 Order name: CBC with Automated Diff EDMS 10/28 19:05 Order name: CBC with Automated Diff EDMS 10/28 19:05 Order name: Lipid Profile EDMS 10/28 19:05 Order name: Lipid Profile EDMS 10/28 13:36 Order name: Foot Right 3 View XRAY; Complete Time: 17:05 [facility] 10/28 13:36 Order name: Extremity Venous W Compression Wilian; Complete Time: 17:05 [facility] 10/28 13:36 Order name: Chest Single View XRAY; Complete Time: 17:05 [facility] 10/28 14:16 Order name: LE Artery Uni Ltd; Complete Time: 17:05 [facility] 10/28 13:36 Order name: Wound dressing; Complete Time: 14:58 marian EC:30 Rate is 52 beats/min. Rhythm is regular. QRS Tucker is Normal. IN interval is normal. QRS marian interval is normal. QT interval is normal. No Q waves. T waves are Normal. No ST changes noted. Clinical impression: Sinus bradycardia and No evidence of ischemia. Interpreted by me. Reviewed by me. Administered Medications: 13:50 Drug: NS 0.9% IV 500 ml 500 ml IV at 1 bolus once; to be given as a bolus over 30 kc6 minutes Volume: 500 ml; Route: IV; Rate: 1 bolus; Site: left upper arm; 15:34 Follow up: Response: No adverse reaction; IV Status: Completed infusion; IV Intake: kc6 500ml 14:58 Drug: Ativan IVP 0.5 mg IVP once Route: IVP; Site: left upper arm; 6 15:34 Follow up: Response: No adverse reaction; RASS: Drowsy (-1) kc6 14:58 Drug: Keppra IV 1000 mg IV at per protocol once Route: IV; Rate: per protocol; Site: [facility] left upper arm; 15:34 Follow up: Response: No adverse reaction; IV Status: Completed infusion; IV Intake: kc6 100ml Disposition Summary: 10/28/24 17:43 Hospitalization Ordered Notes: Hospitalization Status: Observation marian Provider: Prince marian Torres Location: Telemetry/MedSurg (observation) marian Condition: Fair marian Problem: new marian Symptoms: have improved marian Bed/Room Type: Standard marian Room Assignment: 401(10/28/24 20:18) kmf Diagnosis - Cellulitis and acute lymphangitis of other parts of limb - right foot marian - Peripheral vascular disease, unspecified marian - Dementia in other diseases classified elsewhere without behavioral disturbance marian - Anemia, unspecified marian - Hypokalemia marian Forms: - Medication Reconciliation Form marian - SBAR form marian - Leadership Thank You Letter marian Signatures: Dispatcher [employer] EDMS Jac Ramos MD MD cha Campbell, Kaitlyn RN RN kc6 Rhonda Ascencio [facility] Corrections: (The following items were deleted from the chart) 13:37 13:36 Foot Right 3 View+RAD.RAD.BRZ ordered. EDMS EDMS 13:37 13:37 Extrem Venous W Compression Wilian+US.RAD.BRZ ordered. EDMS EDMS 13:37 13:37 Chest Single View+RAD.RAD.BRZ ordered. EDMS EDMS 20:18 17:43 marian kmf
--- NOTE | 2024-10-28 17:44 | ER ---
Nurse's Notes [facility] Name: Donaldo English Age: 69 yrs Sex: Male : 1955 Arrival Date: 10/28/2024 Time: 13:07 Bed 19 Private MD: Diagnosis: Cellulitis and acute lymphangitis of other parts of limb-right foot;Peripheral vascular disease, unspecified;Dementia in other diseases classified elsewhere without behavioral disturbance;Anemia, unspecified;Hypokalemia Presentation: 10/28 13:26 Chief complaint: EMS states: they were toned out to [place] or right foot pain. pt is kc6 s/p right big toe amputation x1 week. EMS report the [facility] gave him [place] at 0700 with no relief, unknown dose. Coronavirus screen: At this time, the client does not indicate any symptoms associated with coronavirus-19. Ebola Screen: No symptoms or risks identified at this time. Initial Sepsis Screen: Does the patient meet any 2 criteria? Altered Mental Status. Does the patient have a suspected source of infection? No. Patient's initial sepsis screen is negative. Risk Assessment: Do you want to hurt yourself or someone else? Patient reports no desire to harm self or others. Onset of symptoms was October 28, 2024. 13:26 Method Of Arrival: EMS: [facility] 13:26 Acuity: LILIANA 3 kc6 Historical: - Allergies: 13:28 No Known Allergies; kc6 - PMHx: 13:28 Cerebrovascular accident; coronary atherosclerosis; Dementia; depressive disorder; kc6 diabetes mellitus; dysphasia (Speech disturbances); Hypertensive disorder; Hypothyroidism; Right sided weakness; schizoaffective disorder; Seizure; Speech disturbances; - PSHx: 13:28 Unable to Obtain; kc6 - Immunization history:: Adult Immunizations unknown. - Infectious Disease History:: Denies. - Social history:: Smoking status: unknown. - Family history:: not pertinent. Screenin:30 [facility] ED Fall Risk Assessment (Adult) History of falling in the last 3 months, kc6 including since admission No falls in past 3 months (0 pts) Confusion or Disorientation Yes (5 pts) Intoxicated or Sedated No (0 pts) Impaired Gait Yes (1 pt) Mobility Assist Device Used Yes (1 pt) Altered Elimination No (0 pt) Score/Fall Risk Level 3 or more points = High Risk Oriented to surroundings, Maintained a safe environment, Educated pt \T\ family on fall prevention, incl call for assistance when getting out of bed. Abuse screen: Denies threats or abuse. Denies injuries from another. Nutritional screening: No deficits noted. Tuberculosis screening: No symptoms or risk factors identified. Assessment: 13:30 General: Appears in no apparent distress. comfortable, well groomed, well developed, kc6 Behavior is calm, cooperative, appropriate for age. Pain: Complains of pain in right foot. Neuro: Level of Consciousness is awake, alert, obeys commands, confused, Oriented to person, Appropriate for age. Cardiovascular: Capillary refill < 3 seconds. Respiratory: Airway is patent Trachea midline Respiratory effort is even, unlabored, Respiratory pattern is regular, symmetrical. GI: No signs and/or symptoms were reported involving the gastrointestinal system. : No signs and/or symptoms were reported regarding the genitourinary system. EENT: No signs and/or symptoms were reported regarding the EENT system. Derm: Skin is healthy with good turgor, Skin is pink, warm \T\ dry. Wound noted right foot Wound is open with stitches in place. skin appears to be peeling back and eschar is present. Musculoskeletal: No signs and/or symptoms reported regarding the musculoskeletal system. Circulation, motion, and sensation intact. Range of motion: intact in all extremities. 14:30 Reassessment: Patient appears in no apparent distress at this time. No changes from kc6 previously documented assessment. Patient and/or family updated on plan of care and expected duration. Pain level reassessed. 15:30 Reassessment: Patient appears in no apparent distress at this time. No changes from kc6 previously documented assessment. Patient and/or family updated on plan of care and expected duration. Pain level reassessed. 16:32 Reassessment: Patient appears in no apparent distress at this time. No changes from kc6 previously documented assessment. Patient and/or family updated on plan of care and expected duration. Pain level reassessed. 17:27 Reassessment: Patient appears in no apparent distress at this time. No changes from kc6 previously documented assessment. Patient and/or family updated on plan of care and expected duration. Pain level reassessed. 18:57 Reassessment: Patient appears in no apparent distress at this time. No changes from kc6 previously documented assessment. Patient and/or family updated on plan of care and expected duration. Pain level reassessed. 21:00 Reassessment: pt alert but oriented only to name. No respiratory or any distress noted ay at this time. Pt is a little uncooperative. R foot wound has a new wrap and intact, no discharge noted. Right foot pulse normal. Vital Signs: 13:26 BP 141 / 60; Pulse 81; Resp 18 S; Temp 97.5(O); Pulse Ox 100% on R/A; Weight 91.17 kg kc6 (M); Height 5 ft. 8 in. (R); 15:35 BP 139 / 63; Pulse 90; Resp 18 S; Pulse Ox 100% on R/A; kc6 18:16 BP 133 / 66; Pulse 89; Resp 16 S; Pulse Ox 98% on R/A; kc6 18:57 BP 144 / 58; Pulse 95; Resp 16 S; Pulse Ox 99% on R/A; Pain 0/10; kc6 20:41 BP 120 / 93; Pulse 93; Resp 19; Pulse Ox 99% on R/A; ay 13:26 Body Mass Index 30.56 (91.17 kg, 172.72 cm) kc6 18:57 Pain Scale: Adult kc ED Course: 13:26 Patient arrived in ED. kc6 13:28 Jac Ramos MD is Attending Physician. [facility] 13:28 Triage completed. kc6 13:28 Arm band placed on. kc6 13:29 Patient has correct armband on for positive identification. Bed in low position. Call [facility] light in reach. Side rails up X2. Pulse ox on. NIBP on. Door closed. Noise minimized. Lights dimmed. Pillow given. 13:29 Patient maintains SpO2 saturation greater than 95% on room air. kc6 13:37 Abbi Iraheta, HIEN is Primary Nurse. kc6 13:50 Accessed Blood collected. midline Clean \T\ dry. Dressing intact. Good blood return. kc6 Flushes easily. 13:51 Initial lab(s) drawn, by me, sent to lab. kc6 13:59 Foot Right 3 View XRAY In Process Unspecified. EDMS 13:59 Chest Single View XRAY In Process Unspecified. EDMS 14:48 US Extremity Venous W Compression Wilian In Process Unspecified. EDMS 14:48 US LE Artery [employer] In Process Unspecified. EDMS 17:42 Prince Torres MD is Hospitalizing Provider. marian 19:06 Report given to HIEN Guzman. kc6 Administered Medications: 13:50 Drug: NS 0.9% IV 500 ml 500 ml IV at 1 bolus once; to be given as a bolus over 30 kc6 minutes Volume: 500 ml; Route: IV; Rate: 1 bolus; Site: left upper arm; 15:34 Follow up: Response: No adverse reaction; IV Status: Completed infusion; IV Intake: kc6 500ml 14:58 Drug: Ativan IVP 0.5 mg IVP once Route: IVP; Site: left upper arm; kc6 15:34 Follow up: Response: No adverse reaction; RASS: Drowsy (-1) kc6 14:58 Drug: Keppra IV 1000 mg IV at per protocol once Route: IV; Rate: per protocol; Site: kc6 left upper arm; 15:34 Follow up: Response: No adverse reaction; IV Status: Completed infusion; IV Intake: kc6 100ml Intake: 15:34 IV: 100ml; Total: 100ml. kc6 15:34 IV: 500ml; Total: 600ml. kc6 Outcome: 17:43 Decision to Hospitalize by Provider. marian 22:37 Admitted to Med/surg accompanied by nieves jaimes 22:37 Admitted to 22:37 Condition: stable 22:38 Patient left the ED. ay Signatures: Dispatcher [employer] Jac Gan MD MD cha Campbell, Kaitlyn, RN RN kc6 Yakubu, Awudu, RN RN ay Corrections: (The following items were deleted from the chart) 16:32 16:31 Reassessment: Patient appears in no apparent distress at this time. No changes kc6 from previously documented assessment. Patient and/or family updated on plan of care and expected duration. Pain level reassessed. Patient is alert, oriented x 3, equal unlabored respirations, skin warm/dry/pink. kc6
[2024-10-28] MEDS: NA CHLORIDE 0.9% 1,000 ML IV SCH (19:00)
[2024-10-28] MEDS ORDERED: ONDANSETRON 4 MG/2 ML VIAL IV PRN (19:00)
[2024-10-28] MEDS ORDERED: VANCOMYCIN 1 GM in NA CHLORIDE 0.9% 250 ML IVPB SCH (19:00)
[2024-10-28] MEDS ORDERED: HYDROMORPHONE HCL 1 MG/ML INJ IV PRN (19:00)
[2024-10-28] MEDS: Levofloxacin 750mg IV 750 MG/150 ML BAG IV SCH (19:00)
--- NOTE | 2024-10-28 19:14 | P.HP ---
Certification for Inpatient Patient admitted to: Inpatient With expected LOS: >2 Midnights Practitioner: I am a practitioner with admitting privileges, knowledge of patient current condition, hospital course, and medical plan of care. Services: Services provided to patient in accordance with Admission requirements found in Title 42 Section 412.3 of the Code of Federal Regulations Patient History Date of Service: 10/28/24 Reason for admission: wound cellulitis History of Present Illness: Patient is a 69-year-old male with a past medical history of diabetes mellitus, peripheral vascular disease with critical right popliteal stenosis s/p angioplasty and right great toe partial ray amputation on 10/16/2024. Patient also has a history of Alzheimer dementia and prior CVA with residual aphasia. He presented to the ER for increased great toe pain since his discharge. Patient went to see Dr. Henry today for his peripheral vascular disease. He was found to have increased pain. Patient was tachycardic in the 140s and reportedly convulsed. He is brought here for continued treatment. During my evaluation, patient was unable to provide a reliable review of system. He supposed to be on Unasyn and vancomycin postoperatively after surgical amputation of great toe abscess with necrosis. Sister is unclear whether he has been compliant. Arterial Doppler showed moderately severe right-sided infrapopliteal peripheral vascular disease with monophasic flow noted. Allergies No Known Allergies Allergy (Verified 10/15/24 02:56) Home Medications: Atorvastatin Calcium 40 mg PO BEDTIME 05/31/21 Clopidogrel Bisulfate [Plavix] 75 mg PO DAILY 05/31/21 Furosemide [Lasix] 20 mg PO DAILY 05/31/21 Insulin Glargine,Hum.rec.anlog [Lantus] 26 unit SQ BID 05/31/21 Acetaminophen [Tylenol] 650 mg PO Q4HP PRN 05/20/24 Amlodipine [Norvasc*] 5 mg PO DAILY 05/20/24 Aripiprazole [Abilify] 5 mg PO BEDTIME 05/20/24 Aspirin 325 mg PO DAILY 05/20/24 Divalproex [Depakote Sprinkle*] 4 cap PO BID 05/20/24 Gabapentin [Neurontin*] 100 mg PO DAILY 05/20/24 Omeprazole 20 mg PO DAILY 05/20/24 Potassium Chloride 20 meq PO DAILY 05/20/24 Rivastigmine Tartrate [Rivastigmine] 1.5 mg PO BID 05/20/24 Sertraline HCl 50 mg PO DAILY 05/20/24 Sitagliptin Phosphate [Januvia] 100 mg PO DAILY 05/20/24 levETIRAcetam [Keppra] 10 ml PO BID 05/20/24 Lactulose 30 ml PO Q12HP PRN 06/10/24 Levothyroxine Sodium 125 mcg PO 0600 06/10/24 Insuln Asp Prt/Insulin Aspart [Novolog Mix 70-30 Vial] See Protocol SQ BID 10/11/24 Lactobacillus Combination No.4 [Probiotic] 2 cap PO DAILY 10/11/24 Metoprolol Tartrate [Lopressor*] 25 mg PO BID 10/11/24 Simethicone [Gas Relief] 125 mg PO Q6HP PRN 10/11/24 Bisacodyl [Dulcolax*] 10 mg MD DAILY PRN #0 supp 10/21/24 Collagenase [Santyl Ointment*] 1 appl TOP DAILY tube 10/21/24 Hydrocodone 5/APAP 325 [[place] 5/325] 1 tab PO Q6H PRN #15 tab 10/21/24 Silver Sulfadiazine Crm [Silvadene*] 1 appl TOP DAILY tube 10/21/24 - Past Medical/Surgical History Diabetic: Yes -: cva residual right-sided weakness -: Depressive disorder -: gallstones -: diabetic retinopathy -: depression -: thyroid disease -: siezures -: CAD -: Diabetes mellitusIDDM -: Schizophrenia -: Speech disturbances -: Dimension -: CABG -: thyoidectomy -: right 5th toe amputation -: BLE stents - Social History Alcohol use: No CD- Drugs: No Caffeine use: No Physical Examination - Physical Exam General: Acute distress, Obese HEENT: Atraumatic, Normocephalic Respiratory: Clear to auscultation bilaterally, Normal air movement Integumentary: Other (Status post right great toe amputation) Neurological: Abnormal speech - Studies Laboratory Data (last 24 hrs) 10/28/24 10/28/24 13:48 13:48 WBC 10.20 Hgb 9.1 L Hct 26.5 L Plt Count 338 Sodium 137 Potassium 3.2 L BUN 10 Creatinine 0.78 Glucose 239 H Total Bilirubin 0.5 AST 12 L ALT < 14 L Alkaline Phosphatase 61 Assessment and Plan - Problems (Diagnosis) (1) Amputation of right great toe Current Visit: Yes Status: Acute (2) Arterial leg ulcer Current Visit: No Status: Acute (3) Diabetic foot ulcer Current Visit: No Status: Acute (4) History of CVA (cerebrovascular accident) Current Visit: No Status: Acute (5) History of four vessel coronary artery bypass graft Current Visit: No Status: Acute (6) Hyperlipidemia Current Visit: No Status: Acute (7) Hypertension Current Visit: No Status: Acute (8) Hypothyroidism Current Visit: No Status: Acute (9) PAD (peripheral artery disease) Current Visit: No Status: Acute - Plan Assessment Patient is a 69-year-old male with extensive cardiovascular history including CABG, severe peripheral vascular disease, uncontrolled diabetes mellitus status post right great toe amputation for abscess with necrosis. He returned to the hospital with increased right foot pain patient was reportedly tachycardic with a heart rate in the 140s. Surgery, Dr. Melendez, has been consulted. Arterial Doppler showed moderately severe right-sided infrapopliteal peripheral vascular disease with monophasic flow noted. Postsurgical infection wound cellulitis Severe peripheral vascular disease Coronary disease status post CABG History of CVA with residual dysphagia and aphasia Insulin-dependent diabetes mellitus Hypertension Hyperlipidemia Plan: Will admit inpatient with telemetry Will continue patient on Unasyn and vancomycin. Wound culture from recent surgery yielded E. coli and group B strep IV fluid infusion Consult general surgery. Defer to Dr. Melendez regarding vascular surgery consult Pain control Antiemetics Resume home meds once reconciled - Advance Directives Does patient have a Living Will: No Does patient have a Durable POA for Healthcare: Yes
[2024-10-28] MEDS: AMPICILLIN/SULBACT 3 GM in NA CHLORIDE 0.9% 100 ML IVPB SCH (19:15)
[2024-10-28] MEDS ORDERED: POTASSIUM CL 40 MEQ in NA CHLORIDE 0.9% 500 ML IV ONE (20:00)
[2024-10-28] MEDS: VANCOMYCIN 1.5 GM in NA CHLORIDE 0.9% 500 ML IVPB SCH ×2 (21:00→23:00)
[2024-10-29] MEDS: VANCOMYCIN 500 MG/VIAL ONE (00:20)
[2024-10-29] MEDS: NA CHLORIDE 0.9% 0 ML ONE (00:23)
[2024-10-29] MEDS: NA CHLORIDE 0.9% 500 ML ONE (00:44)
[2024-10-29] MEDS: KCL 20 MEQ/100 mL IVPB 100 ML IV SCH (01:31)
[2024-10-29 01:44] VITALS: BMI 30.5
[2024-10-29] MEDS ORDERED: BISACODYL 10 MG RECTAL SUPP PR PRN (07:05)
[2024-10-29] MEDS ORDERED: LACTULOSE 20 GM/30 ML UCUP PO PRN (07:05)
[2024-10-29] MEDS ORDERED: D10W 125 ML IV PRN (07:10)
[2024-10-29] MEDS ORDERED: GLUCAGON 1 MG/VIAL IM PRN (07:10)
[2024-10-29] MEDS: INSULIN REGULAR (HUMAN) 100 UNIT/ML SQ SCH (07:30)
[2024-10-29 07:57] LABS: Absolute Basophils 0.1 K/uL (0-0.5); Absolute Eosinophils 0.2 K/uL (0-0.5); Absolute Lymphocytes (CBC) 0.4 K/uL (0.7-4.9); Absolute Neutrophil 8.6 K/uL (1.8-8.0); Basophils % 0.6 % (0-1.3); Eosinophils % 2.1 % (0-4.4); Hematocrit 29.1 % (39.6-49.0); Hemoglobin 9.8 g/dL (13.6-17.9); Lymphocytes % 3.4 % (15.3-44.8); MCH 27.1 pg (27.0-35.0); MCHC 33.7 g/dL (32.0-36.0); MCV 80.3 fL (80-100); MPV 6.9 fL (7.6-11.3); Monocytes % 10.1 % (3.3-12.3); Neutrophils % 83.8 % (41.7-73.7); Platelets 330 thou/uL (152-406); RBC Red Blood Cell Count 3.62 M/uL (4.33-5.43); Red Cell Distribution Width 16.7 % (12.1-15.2)
[2024-10-29] MEDS: INSULIN LISPRO 100 UNIT/1 ML SQ SCH (09:00)
[2024-10-29] MEDS: METOPROLOL TAR 25 MG TAB PO SCH (09:00)
[2024-10-29] MEDS: AMLODIPINE 5 MG TAB PO SCH (09:00)
[2024-10-29] MEDS: levETIRAcetam 500 MG/5 ML OSYR PO SCH (09:36)
[2024-10-29] MEDS: DIVALPROEX NA 125 MG CAP PO SCH (09:37)
[2024-10-29] MEDS: ENOXAPARIN 40 MG/0.4 ML SQ SCH (09:37)
[2024-10-29] MEDS: FUROSEMIDE 20 MG TABLET PO SCH (09:37)
[2024-10-29] MEDS: POTASSIUM CL SA 10 MEQ TAB PO SCH (09:37)
[2024-10-29] MEDS: SERTRALINE HCL 50 MG TAB PO SCH (09:37)
[2024-10-29] MEDS: ASPIRIN 325 MG TAB PO SCH (09:37)
[2024-10-29] MEDS: RIVASTIGMINE TARTRATE 1.5 MG PO SCH (09:37)
[2024-10-29] MEDS: GABAPENTIN 100 MG CAP PO SCH (09:38)
[2024-10-29] MEDS: LACTOBACILLUS/ACIDOPHILUS TAB PO SCH (09:38)
[2024-10-29] MEDS: CLOPIDOGREL 75 MG TABLET PO SCH (09:38)
--- NOTE | 2024-10-29 10:27 | P.PN ---
Subjective Date of Service: 10/29/24 Chief Complaint: wound cellulitis Subjective: No new changes Patient states that he has no complaint, his postoperative pain of the right foot is tolerable and managed with oral analgesics, no purulent discharge or bleeding. Denied any fever or chills or chest pain or shortness of breath. Review of Systems Other: Consitutional; fever(-), chills (-), rigor(-), night sweat(-), unintentional weight loss(-), malaise (-) HEENT; diplopia (-), rhinorrhea (-), epistaxis (-), otorrhea (-), otalgia (-) Respiratory; shortness of breath (-), wheezing (-), cough (-), sputum (-), pleuritic chest pain (-) Cardiovascular; chest pain (-), peripheral edema (-), paroxysmal nocturnal dyspnea (-), orthopnea (-) Gastrointestinal; nausea (-), vomiting (-), abdominal pain (-), diarrhea (-), constipation (-), melena (-), hematochezia (-) Genitourinary; urinary frequency (-), dysuria (-), urgency (-), flank pain (-), gross hematuria (-), incontinence (-) Skin; rash (-), pruritus (-) 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 General: Obese, not acutely ill looking, in no apparent distress,. HEENT: Normocephalic, atraumatic, nonicteric sclera, nonanemic conjunctive. Neck: Supple, without JVD or goiter or thyroid mass. Respiratory: Normal breathing effort, clear to auscultation bilaterally, no crackles no wheezing or rhonchi. Cardiovascular: Regular rate and rhythm, S1, S2 normal, no murmur no gallop. Gastrointestinal: Normal bowel sounds, nondistended, nontender, No ascites, , No masses, no hepatosplenomegaly. Extremities : No clubbing, No peripheral edema,. Integumentary: No rashes, petechia, suspected lesions. Musculoskeletal, status post amputation of right hallux, operative wound is clean, dry, crusted with old blood clot, mild tenderness to touch, no erythema no induration. Lymphatics: No axilla or cervical lymphadenopathy. Neurology; alert awake oriented x3, no focal neurologic deficit, normal affection . mood and behavior. - Studies Laboratory Data (last 24 hrs) 10/28/24 10/28/24 13:48 13:48 WBC 10.20 Hgb 9.1 L Hct 26.5 L Plt Count 338 Sodium 137 Potassium 3.2 L BUN 10 Creatinine 0.78 Glucose 239 H Total Bilirubin 0.5 AST 12 L ALT < 14 L Alkaline Phosphatase 61 Assessment And Plan - Plan Patient is a 69-year-old male with extensive cardiovascular history including CABG, severe peripheral vascular disease, uncontrolled diabetes mellitus status post right great toe amputation for abscess with necrosis with E. coli and group B streptococcus on October 16, 2024. CVA complicated by vascular dementia he returned to the hospital with increased right foot pain patient was reportedly tachycardic with a heart rate in the 140s. Surgery, Dr. Melendez, has been consulted. Arterial Doppler showed moderately severe right- sided infrapopliteal peripheral vascular disease with monophasic flow noted. #1 well-healed postsurgical infection wound with unlikely cellulitis I will keep him on definite antibiotics there with IV Vanco and Unasyn based on operative wound culture, I will wait surgery opinion, pain controlled with oral [place] #2 Severe peripheral vascular disease right lower extremity status post PCI No limb ischemia, continue antiplatelet and statin #3 chronic Coronary disease status post CABG Resume his metoprolol, aspirin and Plavix and statin #4 history of CVA with residual dysphagia and aphasia on anticonvulsant No seizure activity witnessed, will resume his Depakote and Keppra #5 diabetes mellitus on insulin Random blood sugar elevated to 239, I will put him on a 30 unit Lantus, 8 units lispro x 3 with meal, moderate corrective insulin #6 likely anemia of chronic disease Hemoglobin stable around 9, I will order anemia study tomorrow morning #7 history of hypertension His blood pressure and heart rate reasonably controlled, I will continue metoprolol and monitor blood pressure and heart rate adjust as according DVT prophylaxis enoxaparin subcu
[2024-10-29] MEDS: INSULIN GLARGINE 100 UNIT/ML SQ SCH (12:26)
[2024-10-29] MEDS: SILVER SULFADIAZINE 1% 50 GM TOP SCH (12:36)
[2024-10-29] MEDS: POTASSIUM 25 MEQ EFFERV TAB PO ONE (15:13)
[2024-10-29] MEDS: HYDROCODONE/APAP 5/325 MG TAB PO PRN (17:03)
[2024-10-29] MEDS: ARIPiprazole 5 MG TAB PO SCH (21:36)
[2024-10-29] MEDS: ATORVASTATIN 40 MG TAB PO SCH (21:36)
[2024-10-30] MEDS: KCL 20 MEQ/100 mL IVPB 20 MEQ/100 ML BAG IV SCH (00:08)
[2024-10-30] MEDS: LEVOTHYROXINE SOD 0.125 MG TAB PO SCH (05:32)
[2024-10-30 10:11] LABS: Percent Reticulocyte Count 2.48 % (0.4-2.05); RBC Red Blood Cell Count 3.74 M/uL (4.33-5.43)
[2024-10-30 10:34] LABS: Anion Gap 6.3 mEq/L (5.0-15.0); Ferritin 321.2 ng/mL (26-388); Potassium 3.3 mEq/L (3.5-5.1)
[2024-10-30] MEDS: POTASSIUM CL SA 10 MEQ TAB PO ONE (11:32)
[2024-10-30] MEDS ORDERED: LIDOCAINE HCL/EPINEPHRINE 20 ML MDV ONE (14:02)
--- NOTE | 2024-10-30 14:11 | P.PN ---
Subjective Date of Service: 10/30/24 Chief Complaint: wound cellulitis Subjective: New changes He states that he is doing fine, no complaint, his postoperative pain is reasonably controlled with pain medication, no purulent discharge or bleeding. He is scheduled for surgical debridement today. Case discussed with general surgeon, patient has a poor wound healing. Patient has a severe peripheral artery disease of the right lower extremity below knee, he need further vascular intervention at his vascular surgeon clinic. Review of Systems Other: Consitutional; fever(-), chills (-), rigor(-), night sweat(-), unintentional weight loss(-), malaise (-) HEENT; diplopia (-), rhinorrhea (-), epistaxis (-), otorrhea (-), otalgia (-) Respiratory; shortness of breath (-), wheezing (-), cough (-), sputum (-), pleuritic chest pain (-) Cardiovascular; chest pain (-), peripheral edema (-), paroxysmal nocturnal dyspnea (-), orthopnea (-) Gastrointestinal; nausea (-), vomiting (-), abdominal pain (-), diarrhea (-), constipation (-), melena (-), hematochezia (-) Genitourinary; urinary frequency (-), dysuria (-), urgency (-), flank pain (-), gross hematuria (-), incontinence (-) Skin; rash (-), pruritus (-) 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 General: Obese, not acutely ill looking, in no apparent distress,. HEENT: Normocephalic, atraumatic, nonicteric sclera, nonanemic conjunctive. Neck: Supple, without JVD or goiter or thyroid mass. Respiratory: Normal breathing effort, clear to auscultation bilaterally, no crackles no wheezing or rhonchi. Cardiovascular: Regular rate and rhythm, S1, S2 normal, no murmur no gallop. Gastrointestinal: Normal bowel sounds, nondistended, nontender, No ascites, , No masses, no hepatosplenomegaly. Extremities : No clubbing, No peripheral edema,. Integumentary: No rashes, petechia, suspected lesions. Musculoskeletal, status post amputation of right hallux in dressing, no bleeding or purulent discharge noted. Lymphatics: No axilla or cervical lymphadenopathy. Neurology; alert awake oriented x3, no focal neurologic deficit, normal affection . mood and behavior. Assessment And Plan - Plan Patient is a 69-year-old male with extensive cardiovascular history including CABG, severe peripheral vascular disease, uncontrolled diabetes mellitus status post right great toe amputation for abscess with necrosis with E. coli and group B streptococcus on October 16, 2024. CVA complicated by vascular dementia he returned to the hospital with increased right foot pain patient was reportedly tachycardic with a heart rate in the 140s. Surgery, Dr. Melendez, has been consulted. Arterial Doppler showed moderately severe right- sided infrapopliteal peripheral vascular disease with monophasic flow noted. #1 poorly healing postsurgical infection wound with possible cellulitis Scheduled for surgical debridement today, case discussed with general surgeon. Wound culture Gram stain gram-negative michel. I will downgrade antibiotics to Unasyn. Surgical pathology from September 2024 reviewed, no osteomyelitis but acute inflammation #2 Severe peripheral vascular disease right lower extremity status post PCI No limb ischemia, continue antiplatelet and statin, patient need further vascular intervention at his vascular surgeon,Dr [facility] after discharge #3 chronic Coronary disease status post CABG continue metoprolol, aspirin and Plavix and statin #4 history of CVA with residual dysphagia and aphasia on anticonvulsant No seizure activity witnessed, keep on Depakote and Keppra #5 type II diabetes mellitus on insulin His glycemia improved, hemoglobin A1c at target at 7.1, fasting blood sugar 89 noted, I will cut down the Lantus to 20 unit from 30 unit once a day, 8 units lispro x 3 with meal, moderate corrective insulin #6 anemia of chronic disease Hemoglobin stable around 9, iron study reviewed, no iron therapy indicated #7 controlled hypertension His blood pressure and heart rate reasonably controlled, I will continue metoprolol at current dose DVT prophylaxis enoxaparin subcu
[2024-10-30] MEDS ORDERED: ONDANSETRON 4 MG/2 ML VIAL ONE (14:27)
[2024-10-30] MEDS ORDERED: FENTANYL CITR 100 MCG/2 ML ONE (14:27)
[2024-10-30] MEDS ORDERED: propofoL 200 MG/20 ML VIAL IV ONE (14:27)
[2024-10-30] MEDS ORDERED: LIDOCAINE 2% MPF 5 ML VIAL ONE (14:27)
[2024-10-30] MEDS: NA CHLORIDE 0.9% 1,000 ML ONE (15:06)
[2024-10-30] MEDS ORDERED: EPHEDRINE SULF 50 MG/ML VIAL ONE (16:28)
[2024-10-30] MEDS ORDERED: dexAMETHasone 4 MG/ML VIAL ONE (16:29)
--- NOTE | 2024-10-30 16:47 | P.OP ---
Preoperative diagnosis: RIGHT Foot Chronic Wound Postoperative diagnosis: RIGHT Foot Chronic Wound Primary procedure: Debridement of RIGHT Foot Chronic Wound Anesthesia: GETA Estimated blood loss: <1cc Specimen: Cultures, Debridement Tissue Findings: Ischemic changes noted Complications: None Transferred to: Recovery Room Condition: Good
--- NOTE | 2024-10-31 01:59 | OP ---
Date of Procedure: 10/30/2024 Surgeon: Mc Flores MD, Preoperative Diagnosis: Right foot chronic wound. Postoperative Diagnosis: Right foot chronic wound. Procedure Performed: Debridement of right foot chronic wound. Anesthesia: General endotracheal. Estimated Blood Loss: Less than 1 cc. Specimen: Culture sent for both aerobic and anaerobic speciation, debridement tissue. Findings: Ischemic changes noted. Complications: None. Disposition: The patient was transferred to recovery room in good condition. Procedure In Detail: After informed consent was obtained, patient was brought to the operating room, prepped in the usual sterile fashion. After adequate anesthesia was achieved, I inspected the area of the previous wound, which still had sutures in place, but there were ischemic changes evident in t his area with some dehiscence. I ultimately removed all the old sutures and all nonviable tissue usi ng a combination of sharp dissection as well as minimal electrocautery. The area was copiously irrig ated after being completely cleansed out and all debridement tissue was sent for pathologic examinati on. The area was cultured also prior to any irrigation. At this point, the area was irrigated copio usly. There was minimal blood loss as the area appeared ischemic overall. However, I did have some minimal bleeding at the end of the procedure. At this point, simple pressure controlled this. I the n packed the wound with Vashe soaked half-inch plain packing and a sterile dressing was placed over t op. 2 single interrupted 3-0 nylon sutures were placed to help reapproximate covering the bone to pr otect the bone. The patient tolerated the procedure without incident or complication, transferred to PACU in good condition. All counts were correct at the end. TK/MODL Voice ID: [id number] Report ID: [id number]
[2024-10-31] MEDS: INSULIN GLARGINE 100 UNIT/ML SQ SCH (09:03)
--- NOTE | 2024-10-31 10:17 | P.PN ---
Subjective Date of Service: 10/31/24 Chief Complaint: wound cellulitis Subjective: No new changes Patient underwent surgical debridement yesterday without any complication. He is lying in bed with no complaint, he states that he slept well, his postoperative pain is tolerable, no fever or chill, tolerating oral diet well. Review of Systems Other: Consitutional; fever(-), chills (-), rigor(-), night sweat(-), unintentional weight loss(-), malaise (-) HEENT; diplopia (-), rhinorrhea (-), epistaxis (-), otorrhea (-), otalgia (-) Respiratory; shortness of breath (-), wheezing (-), cough (-), sputum (-), pleuritic chest pain (-) Cardiovascular; chest pain (-), peripheral edema (-), paroxysmal nocturnal dyspnea (-), orthopnea (-) Gastrointestinal; nausea (-), vomiting (-), abdominal pain (-), diarrhea (-), constipation (-), melena (-), hematochezia (-) Genitourinary; urinary frequency (-), dysuria (-), urgency (-), flank pain (-), gross hematuria (-), incontinence (-) Skin; rash (-), 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 General: Obese, not acutely ill looking, in no apparent distress,. HEENT: Normocephalic, atraumatic, nonicteric sclera, nonanemic conjunctive. Neck: Supple, without JVD or goiter or thyroid mass. Respiratory: Normal breathing effort, clear to auscultation bilaterally, no crackles no wheezing or rhonchi. Cardiovascular: Regular rate and rhythm, S1, S2 normal, no murmur no gallop. Gastrointestinal: Normal bowel sounds, nondistended, nontender, No ascites, , No masses, no hepatosplenomegaly. Extremities : No clubbing, No peripheral edema,. Integumentary: No rashes, petechia, suspected lesions. Musculoskeletal, status post amputation of right hallux in dressing, no bleeding or purulent discharge noted. Lymphatics: No axilla or cervical lymphadenopathy. Neurology; alert awake oriented x3, no focal neurologic deficit, normal affection . mood and behavior. Assessment And Plan - Plan Patient is a 69-year-old male with extensive cardiovascular history including CABG, severe peripheral vascular disease, uncontrolled diabetes mellitus status post right great toe amputation for abscess with necrosis with E. coli and group B streptococcus on October 16, 2024. CVA complicated by vascular dementia he returned to the hospital with increased right foot pain patient was reportedly tachycardic with a heart rate in the 140s. Surgery, Dr. Melendez, has been consulted. Arterial Doppler showed moderately severe right- sided infrapopliteal peripheral vascular disease with monophasic flow noted. #1 poorly healing postsurgical wound with possible cellulitis with E. coli status post surgical debridement on October 30 Superficial wound culture result reviewed, E. coli sensitive to quinolone, I will change antibiotics from Unasyn to Augmentin today. Operative culture result pending Surgical pathology from September 2024 reviewed, no osteomyelitis but acute inflammation #2 Severe peripheral vascular disease right lower extremity status post PCI No limb ischemia, continue antiplatelet and statin, patient need further vascular intervention at his vascular surgeon,Dr [facility] after discharge #3 chronic Coronary disease status post CABG continue metoprolol, aspirin and Plavix and statin #4 history of CVA with residual dysphagia and aphasia on anticonvulsant No seizure activity witnessed, keep on Depakote and Keppra #5 type II diabetes mellitus on insulin , hemoglobin A1c at target at 7.1, glycemia optimized, I will keep Lantus to 20 unit once a day, 8 units lispro x 3 with meal, moderate corrective insulin #6 anemia of chronic disease Hemoglobin stable around 9, iron study reviewed, no iron therapy indicated #7 controlled hypertension His blood pressure and heart rate reasonably controlled, I will continue metoprolol at current dose DVT prophylaxis enoxaparin subcu Disposition; plan [facility] and follow-up with his vascular surgeon at clinic for further vascular intervention once surgery clears the patient
[2024-10-31] MEDS: LINEZOLID 600 MG TAB PO SCH (21:22)
[2024-10-31] MEDS: AMOX/K CLAV 875 MG TAB PO SCH (21:22)
[2024-11-01] MEDS: INSULIN LISPRO 100 UNIT/1 ML SQ SCH (09:00)
--- NOTE | 2024-11-01 10:23 | P.PN ---
Subjective Date of Service: 11/01/24 Chief Complaint: wound cellulitis Subjective: No new changes He says he is doing fine, no complaint, his postoperative operative pain is well-controlled with oral pain medication. He is sleeping well, tolerating oral diet well. Review of Systems Other: Consitutional; fever(-), chills (-), rigor(-), night sweat(-), unintentional weight loss(-), malaise (-) HEENT; diplopia (-), rhinorrhea (-), epistaxis (-), otorrhea (-), otalgia (-) Respiratory; shortness of breath (-), wheezing (-), cough (-), sputum (-), pleuritic chest pain (-) Cardiovascular; chest pain (-), peripheral edema (-), paroxysmal nocturnal dy spnea (-), orthopnea (-) Gastrointestinal; nausea (-), vomiting (-), abdominal pain (-), diarrhea (-), constipation (-), melena (-), hematochezia (-) Genitourinary; urinary frequency (-), dysuria (-), urgency (-), flank pain (-), gross hematuria (-), incontinence (-) Skin; rash (-), pruritus (-) 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 General: Obese, not acutely ill looking, in no apparent distress,. HEENT: Normocephalic, atraumatic, nonicteric sclera, nonanemic conjunctive. Neck: Supple, without JVD or goiter or thyroid mass. Respiratory: Normal breathing effort, clear to auscultation bilaterally, no crackles no wheezing or rhonchi. Cardiovascular: Regular rate and rhythm, S1, S2 normal, no murmur no gallop. Gastrointestinal: Normal bowel sounds, nondistended, nontender, No ascites, , No masses, no hepatosplenomegaly. Extremities : No clubbing, No peripheral edema,. Integumentary: No rashes, petechia, suspected lesions. Musculoskeletal, status post amputation of right hallux in surgical dressing, no bleeding or purulent discharge noted. Lymphatics: No axilla or cervical lymphadenopathy. Neurology; alert awake oriented x3, no focal neurologic deficit, normal affection . mood and behavior. Assessment And Plan - Plan Patient is a 69-year-old male with extensive cardiovascular history including CABG, severe peripheral vascular disease, uncontrolled diabetes mellitus status post right great toe amputation for abscess with necrosis with E. coli and group B streptococcus on October 16, 2024. CVA complicated by vascular dementia he returned to the hospital with increased right foot pain patient was reportedly tachycardic with a heart rate in the 140s. Surgery, Dr. Melendez, has been consulted. Arterial Doppler showed moderately severe right- sided infrapopliteal peripheral vascular disease with monophasic flow noted. #1 poorly healing postsurgical wound with possible cellulitis with E. coli status post surgical debridement on October 30 Superficial wound culture result reviewed, E. coli sensitive to quinolone, operative wound culture Gram stain gram-positive cocci in cluster and gram- negative michel, I will change antibiotics to Augmentin and linezolid, will follow operative culture and sensitivity result, Surgical pathology from September 2024 reviewed, no osteomyelitis but acute inflammation #2 Severe peripheral vascular disease right lower extremity status post PCI No limb ischemia, continue antiplatelet and statin, patient need further vascular intervention at his vascular surgeon,Dr [facility] after discharge per his surgeon, Dr. Coronel #3 chronic Coronary disease status post CABG continue metoprolol, aspirin and Plavix and statin #4 history of CVA with residual dysphagia and aphasia on anticonvulsant No seizure activity witnessed, keep on Depakote and Keppra #5 type II diabetes mellitus on insulin , hemoglobin A1c at target at 7.1, preprandial blood sugar less than 100,, I will keep Lantus to 20 unit once a day, cut down the Lexapro to 6 unit from 8 unit 8 units lispro x 3 with meal, moderate corrective insulin #6 anemia of chronic disease Hemoglobin stable around 9, iron study reviewed, no iron therapy indicated #7 controlled hypertension His blood pressure and heart rate reasonably controlled, I will continue metoprolol at current dose DVT prophylaxis enoxaparin subcu Disposition; plan [facility] to [facility] and follow-up with his vascular surgeon at clinic for further vascular intervention once surgery clears the patient and operative culture is finalized
[2024-11-04] MEDS: AMINO ACIDS/PROTEIN HYDROLYS 30 ML LIQUID.PKT PO SCH (21:22)
[2024-11-05 07:34] LABS: Anion Gap 9.1 mEq/L (5.0-15.0); Potassium 4.1 mEq/L (3.5-5.1)
--- NOTE | 2024-11-05 09:37 | P.PN ---
Date of Service: 11/02/24 Subjective Patient denies any new changes. Clinical symptoms are stable. Patient doing much better. Plan to have vascular surgery see the patient in possible discharge back to nursing facility. Physical Examination - Vital Signs reviewed - Physical Exam General: Alert, In no apparent distress, Oriented x3 Neck: JVD not distended Respiratory: Clear to auscultation bilaterally, Normal air movement Cardiovascular: Regular rate/rhythm, Normal S1 S2 Gastrointestinal: Normal bowel sounds, Soft and benign, Non-distended, No tenderness Musculoskeletal: No clubbing, Swelling, Erythema, Tenderness Integumentary: wound is clean base; no purulent drainage Neurological: Abnormal sensation Assessment & Plan - Problems (Diagnosis) (1) Diabetic foot ulcer Current Visit: No Status: Acute (2) Diabetic neuropathy Current Visit: No Status: Acute (3) GERD (gastroesophageal reflux disease) Current Visit: No Status: Acute (4) History of CVA (cerebrovascular accident) Current Visit: No Status: Acute (5) History of four vessel coronary artery bypass graft Current Visit: No Status: Acute (6) Hx of thyroidectomy Current Visit: No Status: Acute (7) Hyperlipidemia Current Visit: No Status: Acute (8) Hypertension Current Visit: No Status: Acute (9) Hypothyroidism Current Visit: No Status: Acute (10) PAD (peripheral artery disease) Current Visit: No Status: Acute - Plan Continue with plan of care as mentioned below: 1. Continue with IV antibiotic 2. Continue with local wound care 3. Outpatient Wound care and surgical consultation; as well as vascular consult 4. Heplock IV 5. Monitor CBC 6. Strict blood sugar monitoring 7. Pain control 8. Arterial US reviewed 9. GI and DVT prophylaxis - Advance Directives Does patient have a Living Will: Yes Does patient have a Durable POA for Healthcare: No
--- NOTE | 2024-11-05 09:42 | P.PN ---
Subjective Date of Service: 11/02/24 Subjective: No new changes, No C/O voiced, Improving Patient continues to improve. Status post debridement. Continue with wound care. Continue with antibiotic coverage. Review of Systems 10-point ROS is otherwise unremarkable Physical Examination - Vital Signs Temperature: 97.6 F Blood Pressure: 168/65 Pulse: 60 Respirations: 16 Pulse Ox (%): 99 - Physical Exam General: Alert, In no apparent distress, Oriented x3 Neck: JVD not distended Respiratory: Clear to auscultation bilaterally, Normal air movement Cardiovascular: Regular rate/rhythm, Normal S1 S2 Gastrointestinal: Normal bowel sounds, Soft and benign, Non-distended, No tenderness Musculoskeletal: No clubbing, Swelling, Erythema, Tenderness, Warmth Integumentary: Tenderness/swelling, Erythema, Warmth Neurological: Abnormal sensation - Studies Medications List Reviewed: Yes Assessment & Plan - Problems (Diagnosis) (1) Diabetes Current Visit: No Status: Acute (2) Diabetic foot ulcer Current Visit: No Status: Acute (3) GERD (gastroesophageal reflux disease) Current Visit: No Status: Acute (4) History of CVA (cerebrovascular accident) Current Visit: No Status: Acute (5) History of four vessel coronary artery bypass graft Current Visit: No Status: Acute (6) Hx of thyroidectomy Current Visit: No Status: Acute (7) Hyperlipidemia Current Visit: No Status: Acute (8) Hypertension Current Visit: No Status: Acute (9) Hypothyroidism Current Visit: No Status: Acute (10) PAD (peripheral artery disease) Current Visit: No Status: Acute - Plan PLAN: 1. Continue with IV antibiotic 2. Continue with local wound care 3. Wound care consultation/surgical consultation 4. Heplock IV 5. Monitor CBC 6. Strict blood sugar monitoring 7. Pain control 8. Arterial US 9. GI and DVT prophylaxis - Advance Directives Does patient have a Living Will: Yes Does patient have a Durable POA for Healthcare: No
--- NOTE | 2024-11-05 09:47 | P.PN ---
Date of Service: 11/04/24 Subjective Patient doing well. Patient denies any new complaints. Spoke to vascular surgeon, Dr. Bailey. Will see patient in follow-up outpatient for further intervention. Had patent stent on evaluation last week. No further aggressive interventions at this time. Physical Examination - Vital Signs reviewed - Physical Exam General: Alert, In no apparent distress, Oriented x3 Neck: JVD not distended Respiratory: Clear to auscultation bilaterally, Normal air movement Cardiovascular: Regular rate/rhythm, Normal S1 S2 Gastrointestinal: Normal bowel sounds, Soft and benign, Non-distended, No tenderness Musculoskeletal: No clubbing, Swelling, Erythema, Tenderness Integumentary: wound is clean base; no purulent drainage Neurological: Abnormal sensation Assessment & Plan - Problems (Diagnosis) (1) Diabetic foot ulcer Current Visit: No Status: Acute (2) Diabetic neuropathy Current Visit: No Status: Acute (3) GERD (gastroesophageal reflux disease) Current Visit: No Status: Acute (4) History of CVA (cerebrovascular accident) Current Visit: No Status: Acute (5) History of four vessel coronary artery bypass graft Current Visit: No Status: Acute (6) Hx of thyroidectomy Current Visit: No Status: Acute (7) Hyperlipidemia Current Visit: No Status: Acute (8) Hypertension Current Visit: No Status: Acute (9) Hypothyroidism Current Visit: No Status: Acute (10) PAD (peripheral artery disease) Current Visit: No Status: Acute - Plan Continue with plan of care as mentioned below: 1. Continue with po antibiotic 2. Continue with local wound care 3. Outpatient Wound care and surgical consultation; as well as vascular follow- up 4. Heplock IV 5. Monitor CBC 6. Strict blood sugar monitoring 7. Pain control 8. Arterial US reviewed 9. GI and DVT prophylaxis - Advance Directives Does patient have a Living Will: Yes Does patient have a Durable POA for Healthcare: No
[2024-11-05 09:57] VITALS: O2SAT 99
[2024-11-05 12:12] VITALS: BP 137/75; TEMP 98.3
== END 2024-11-05 12:05 | DRG 264 ==
LOC: ER 13:07 → ERHOLD 19:00 → 4TH 22:09
PROVIDERS: ADMIT Internal Medicine; ATTEND Hospitalist
PROC: 0JBQ0ZZ Excision of Right Foot Subcutaneous Tissue and Fascia, Open Approach (ICD-10-PCS; principal; 2024-09-29)
DX: E11.52 Type 2 diabetes mellitus with diabetic peripheral angiopathy with gangrene (principal); L03.115 Cellulitis of right lower limb; E11.621 Type 2 diabetes mellitus with foot ulcer; L97.519 Non-pressure chronic ulcer of other part of right foot with unspecified severity; E87.6 Hypokalemia; I10 Essential (primary) hypertension; E03.9 Hypothyroidism, unspecified; D63.8 Anemia in other chronic diseases classified elsewhere; I69.320 Aphasia following cerebral infarction; I69.391 Dysphagia following cerebral infarction; R13.10 Dysphagia, unspecified; I25.10 Atherosclerotic heart disease of native coronary artery without angina pectoris; G30.9 Alzheimer's disease, unspecified; F02.80 Dementia in other diseases classified elsewhere, unspecified severity, without behavioral disturbance, psychotic disturbance, mood disturbance, and anxiety; B95.1 Streptococcus, group B, as the cause of diseases classified elsewhere; B96.20 Unspecified Escherichia coli [E. coli] as the cause of diseases classified elsewhere; Z79.4 Long term (current) use of insulin; Z79.82 Long term (current) use of aspirin; Z79.890 Hormone replacement therapy; Z89.411 Acquired absence of right great toe; Z79.899 Other long term (current) drug therapy
CPT/HCPCS: 36415; 71045; 80048; 80053; 80061; 80164; 80202; 82728; 82947; 83036; 83540; 84132; 84466; 85025; 85044; 86140; 87070; 87075; 87077; 87186; 87205; 88304; 93926; 93970; 96361; 96365; 96375; 99285; J0295; J1100; J1650; J1953; J2003; J2405; J2704; J3010; J3480; J7030; J7040; J7050

== ENCOUNTER 2024-11-08 01:04 | Emergency (ER) | payer OTHER ==
--- NOTE | 2024-11-08 02:52 | ER ---
Nurse's Notes [facility] Name: Donaldo English Age: 69 yrs Sex: Male : 1955 Arrival Date: 11/08/2024 Time: 01:04 Bed 16 Private MD: Diagnosis: Fall on same level, unspecified;Essential (primary) hypertension Presentation: 11/08 01:10 Chief complaint: EMS states: family called the nursing facility that the patient had rg5 seen the patient fall from a video monitor. patient was lying on bed when the EMS arrive. 01:10 Care prior to arrival: Medication(s) given: Motrin, 600 mg, Glucose check: 178. rg5 Mechanism of Injury: Fall out of bed. Trauma event details: Injury occurred in the [facility], Injury occurred: in an institution. 01:10 Acuity: LILIANA 3 rg5 01:10 Method Of Arrival: EMS: [facility] rg5 01:10 Coronavirus screen: Client denies travel out of the [place] in the last 14 days. Ebola rg5 Screen: Patient negative for fever greater than or equal to 101.5 degrees Fahrenheit, and additional compatible Ebola Virus Disease symptoms. Initial Sepsis Screen: Does the patient meet any 2 criteria?. Initial Sepsis Screen: Does the patient have a suspected source of infection? No. Patient's initial sepsis screen is negative. Risk Assessment: Do you want to hurt yourself or someone else? Patient reports no desire to harm self or others. Onset of symptoms was November 08, 2024. Historical: - Allergies: 01:10 No Known Allergies; rg5 - PMHx: 01:10 Cerebrovascular accident; coronary atherosclerosis; Dementia; depressive disorder; rg5 diabetes mellitus; dysphasia (Speech disturbances); Hypertensive disorder; Hypothyroidism; Right sided weakness; schizoaffective disorder; Seizure; Speech disturbances; - Immunization history: Last tetanus immunization: unknown. - Infectious Disease History:: Denies. - Social history:: Smoking status: unknown. Screenin:10 Abuse screen: Denies threats or abuse. Tuberculosis screening: No symptoms or risk rg5 factors identified. 01:10 [facility] ED Fall Risk Assessment (Adult) History of falling in the last 3 months, rg5 including since admission Yes- single mechanical fall (1 pt) Confusion or Disorientation Intoxicated or Sedated No (0 pts) Impaired Gait Yes (1 pt) Mobility Assist Device Used Yes (1 pt) Altered Elimination Yes (1 pt) Score/Fall Risk Level 3 or more points = High Risk Oriented to surroundings, Maintained a safe environment, Hourly rounding (assess needs \T\ fall precautionary measures) done. Nutritional screening: No deficits noted. Primary Survey: 01:10 NO uncontrolled hemorrhage observed. Breathing/Chest: Spontaneous respiratory effort, rg5 equal unlabored respirations, breath sounds clear bilaterally, regular pattern, symmetrical chest rise and fall. Circulation: No external hemorrhage present. Regular and strong central pulse, skin warm/dry/normal color. Disability Client is alert. 02:10 Reassessment Alertness and Airway: Awake and alert. The airway is patent. Breathing: rg5 Spontaneous respiratory effort, equal unlabored respirations, breath sounds clear bilaterally, regular pattern with symmetrical chest rise and fall. Circulation: No external hemorrhage noted. Regular and strong central pulse, skin warm/dry/normal color. Disability: Pupils Pupils are equal, round, reactive to light and accomodation. 02:10 Exposure/Environment: A warming method has been applied: A warm blanket has been rg5 provided to the patient. Assessment: 01:10 General: Appears in no apparent distress. Behavior is calm, cooperative, appropriate rg5 for age. Pain: Complains of pain in head Quality of pain is described as aching. Neuro: Level of Consciousness is awake, alert, Oriented to person. EENT: No deficits noted. Cardiovascular: Patient's skin is warm and dry. Respiratory: Airway is patent Trachea midline Respiratory effort is even, unlabored. GI: Abdomen is round non-distended. : No signs and/or symptoms were reported regarding the genitourinary system. Derm: Skin is fragile, Skin is dry, Skin is normal. Musculoskeletal: Circulation, motion, and sensation intact. Range of motion: intact in all extremities. 02:30 Reassessment: No changes from previously documented assessment. Patient and/or family rg5 updated on plan of care and expected duration. Pain level reassessed. 03:35 Reassessment: No changes from previously documented assessment. Patient and/or family rg5 updated on plan of care and expected duration. Pain level reassessed. Patient is alert, oriented x 3, equal unlabored respirations, skin warm/dry/pink. 04:55 Reassessment: No changes from previously documented assessment. Patient and/or family rg5 updated on plan of care and expected duration. Pain level reassessed. Patient is alert, oriented x 3, equal unlabored respirations, skin warm/dry/pink. Vital Signs: 01:09 BP 125 / 55; Pulse 65; Resp 18; Temp 98(O); Pulse Ox 100% on R/A; Weight 26.31 kg; oe Height 2 ft. 30 in. ; 02:30 BP 142 / 53; Pulse 70; Resp 17; Pulse Ox 98% on R/A; rg5 03:35 BP 145 / 62; Pulse 63; Resp 18; Pulse Ox 99% on R/A; Pain 0/10; rg5 01:09 Body Mass Index 13.98 (26.31 kg, 137.16 cm) oe 03:35 Pain Scale: Adult rg5 Nickolas Coma Score: 02:30 Eye Response: spontaneous(4). Motor Response: obeys commands(6). Verbal Response: rg5 oriented(5). Total: 15. Trauma Score (Adult): 01:10 Eye Response: spontaneous(1); Verbal Response: oriented(1); Motor Response: obeys rg5 commands(2); Systolic BP: > 89 mm Hg(4); Respiratory Rate: 10 to 29 per min(4); Nickolas Score: 15; Trauma Score: 12 ED Course: 01:00 Thermoregulation: warm blanket given to patient. rg5 01:07 Patient arrived in ED. jj6 01:07 Hollis Lockhart DO is Attending Physician. ms3 01:10 Patient has correct armband on for positive identification. Bed in low position. Call rg5 light in reach. Side rails up X2. Patient maintains SpO2 saturation greater than 95% on room air. 01:10 Door closed. Noise minimized. Warm blanket given. rg5 01:10 Arm band placed on. rg5 01:10 Patient maintains SpO2 saturation greater than 95% on room air. rg5 01:10 No provider procedures requiring assistance completed. Patient did not have IV access rg5 during this emergency room visit. 01:39 Jean Graff, HIEN is Primary Nurse. rg5 01:40 CT Head C Spine In Process Unspecified. EDMS 01:47 Triage completed. rg5 03:00 Awaiting transportation. rg5 05:24 Provided Education on: post er care. rg5 Administered Medications: No medications were administered Medication: 01:55 VIS not applicable for this client. rg5 Intake: 02:30 PO: 0ml; Total: 0ml. rg5 Outcome: 02:52 Discharge ordered by ms3 05:24 Discharged to custodial. rg5 05:24 Condition: stable 05:24 Condition: stable 05:24 Discharge instructions given to patient, EMS, Instructed on discharge instructions, Demonstrated understanding of instructions, follow-up care, 05:28 Patient left the ED. rg5 Signatures: Dispatcher [employer] EDMS Harvey Lopez Marcus, DO DO ms3 Iliana Avilesj6 Jean Graff, RN RN rg5 Corrections: (The following items were deleted from the chart) 04:58 02:30 Awaiting transportation, rg5 rg5
--- NOTE | 2024-11-08 02:52 | EDPHYS ---
Physician Documentation [facility] Name: Donaldo English Age: 69 yrs Sex: Male : 1955 Arrival Date: 11/08/2024 Time: 01:04 Bed 16 Private MD: ED Physician Hollis Lockhart HPI: 11/08 01:34 This 69 yrs old Male presents to ER via Unassigned with complaints of Fall Injury. ms3 01:34 69-year-old male with past medical history of Alzheimer's presents to the emergency ms3 department via [facility] status post fall at 11:45 PM. EMS notes patient's family notified nursing facility of patient's fall via a camera in the patient's room. The facility nurse told EMS patient was complaining of head pain. Patient is without complaints. He does acknowledge fall.. Historical: - Allergies: 01:10 No Known Allergies; rg5 - PMHx: 01:10 Cerebrovascular accident; coronary atherosclerosis; Dementia; depressive disorder; rg5 diabetes mellitus; dysphasia (Speech disturbances); Hypertensive disorder; Hypothyroidism; Right sided weakness; schizoaffective disorder; Seizure; Speech disturbances; - Immunization history: Last tetanus immunization: unknown. - Infectious Disease History:: Denies. - Social history:: Smoking status: unknown. ROS: 01:34 Constitutional: Negative for fever, and chills. Cardiovascular: Negative for chest ms3 pain, and palpitations. Respiratory: Negative for shortness of breath, cough, wheezing, and pleuritic chest pain, Abdomen/GI: Negative for abdominal pain, nausea, vomiting, diarrhea, and constipation, MS/Extremity: Negative for injury and deformity, Skin: Negative for injury, rash, and discoloration, Exam: 01:34 Constitutional: This is a well developed, well nourished patient who is awake, alert, ms3 and in no acute distress. Head/Face: Normocephalic, atraumatic. Chest/axilla: Normal chest wall appearance and motion. Nontender with no deformity. Cardiovascular: Regular rate and rhythm with a normal S1 and S2. No gallops, murmurs, or rubs. Normal PMI, no JVD. No pulse deficits. Respiratory: Lungs have equal breath sounds bilaterally, clear to auscultation and percussion. No rales, rhonchi or wheezes noted. No increased work of breathing, no retractions or nasal flaring. Skin: Warm, dry with normal turgor. Normal color with no rashes, no lesions, and no evidence of cellulitis. MS/ Extremity: Pulses equal, no cyanosis. Neurovascular intact. Full, normal range of motion. Vital Signs: 01:09 BP 125 / 55; Pulse 65; Resp 18; Temp 98(O); Pulse Ox 100% on R/A; Weight 26.31 kg; oe Height 2 ft. 30 in. ; 02:30 BP 142 / 53; Pulse 70; Resp 17; Pulse Ox 98% on R/A; rg5 03:35 BP 145 / 62; Pulse 63; Resp 18; Pulse Ox 99% on R/A; Pain 0/10; rg5 01:09 Body Mass Index 13.98 (26.31 kg, 137.16 cm) oe 03:35 Pain Scale: Adult rg5 [place] Coma Score: 02:30 Eye Response: spontaneous(4). Motor Response: obeys commands(6). Verbal Response: rg5 oriented(5). Total: 15. Trauma Score (Adult): 01:10 Eye Response: spontaneous(1); Verbal Response: oriented(1); Motor Response: obeys rg5 commands(2); Systolic BP: > 89 mm Hg(4); Respiratory Rate: 10 to 29 per min(4); Nickolas Score: 15; Trauma Score: 12 MDM: 01:07 Medical Screening Exam initiated ms3 01:34 Differential diagnosis: closed head injury, contusion, fracture, sprain, strain. ms3 06:58 Data reviewed: vital signs, nurses notes, radiologic studies, and as a result, I will ms3 discharge patient. Historians other than the Patient: EMS: [facility]. Counseling: I had a detailed discussion with the patient and/or guardian regarding the historical points, exam findings, and any diagnostic results supporting the discharge/admit diagnosis, radiology results, the need for outpatient follow up, to return to the emergency department if symptoms worsen or persist or if there are any questions or concerns that arise at home. Special discussion: I discussed with the patient/guardian in detail that at this point there is no indication for admission to the hospital. It is understood, however, that if the symptoms persist or worsen the patient needs to return immediately for re-evaluation. ED course: Discussed negative CT head and neck with the patient. Patient remains without complaints. Patient to follow-up with primary care physician as needed. All questions were answered. Return precautions discussed include worsening symptoms, or any other concerns.. 11/08 01:08 Order name: CT Head C Spine ms3 Administered Medications: No medications were administered Disposition Summary: 11/08/24 02:52 Discharge Ordered Notes: Location: Home ms3 Condition: Stable ms3 Diagnosis - Fall on same level, unspecified ms3 - Essential (primary) hypertension ms3 Followup: ms3 - With: Private Physician - When: 2 - 3 days - Reason: Recheck today's complaints Discharge Instructions: - Discharge Summary Sheet ms3 - Fall Prevention in the Home, Adult ms3 - Hypertension, Adult ms3 Forms: - Medication Reconciliation Form ms3 - Antibiotic Education ms3 - Prescription Opioid Use ms3 - Patient Portal Instructions ms3 - Leadership Thank You Letter ms3 Signatures: Dispatcher [employer] EDHollis Gerardo DO DO ms3 Jean Graff, RN RN rg5
--- NOTE | 2024-11-08 03:24 | RAD REPORT ---
EXAM: CT Head and Cervical Spine Without Intravenous Contrast CLINICAL HISTORY: The patient is 69 years old and is Male; fall TECHNIQUE: Axial computed tomography images of the head/brain and cervical spine without intravenous contrast. Sagittal and coronal reformatted images were created and reviewed. This CT exam was performed using one or more of the following dose reduction techniques: automated exposure control, adjustmen t of the mA and/or kV according to patient size, and/or use of iterative reconstruction technique. COMPARISON: CT head October 25, 2024 FINDINGS: BRAIN: Large area of malacia within left parietal lobe is present. There is diffuse cerebral atro phy present, consistent with this patient's age. There is patchy hypoattenuation of the deep white matter which is non-specific, but most likely owing to chronic small vessel ischemic change in a patient of this age group. No intracranial hemorrhage, mass effect or midline shift is seen. There are no extra-axial fluid collections. VENTRICLES: There is diffuse prominence of the ventricles, which is likely related to central atr ophy. SKULL: No acute fracture. SINUSES: Unremarkable as visualized. No acute sinusitis. MASTOID AIR CELLS: Unremarkable as visualized. No mastoid effusion. VERTEBRAE: The vertebral body heights and alignment are maintained. No acute fracture. DISCS/SPINAL CANAL/NEURAL FORAMINA: Minimal intervertebral disc space narrowing with anterior ost eophyte formation is noted from C3 through C6. There is no significant canal stenosis or neural foraminal narrowing. SOFT TISSUES: The soft tissues are normal. VASCULATURE: Atherosclerosis of intracranial vasculature is present. LUNG APICES: The lung apices are clear. IMPRESSION: 1. No acute intracranial findings or detrimental change from prior exam. 2. No fracture or malalignment of the cervical spine. Electronically signed by: Keerthi Smith MD 11/08/2024 02:47 AM [facility] Due to temporary technical issues with the PACS/[employer] reporting system, reports are being johnana d by the in-house radiologist without review as a courtesy to ensure prompt reporting the interpreting radiologist is fully responsible for the content of the report. Transcribed Date/Time: 11/08/2024 3:24 AM
[2024-11-08 05:32] VITALS: TEMP 98
[2024-11-08 05:35] VITALS: BP 145/62; O2SAT 99
== END 2024-11-08 05:28 | disposition home or self-care (01) ==
LOC: ER 01:04
DX: I10 Essential (primary) hypertension (principal); W18.30XA Fall on same level, unspecified, initial encounter; G30.9 Alzheimer's disease, unspecified; F02.80 Dementia in other diseases classified elsewhere, unspecified severity, without behavioral disturbance, psychotic disturbance, mood disturbance, and anxiety
CPT/HCPCS: 70450; 72125; 99283

== ENCOUNTER 2024-11-15 15:35 | Inpatient (IN) | payer OTHER ==
[2024-11-15 16:26] LABS: Absolute Basophils 0.1 K/uL (0-0.5); Absolute Eosinophils 0.3 K/uL (0-0.5); Absolute Lymphocytes (CBC) 1.4 K/uL (0.7-4.9); Absolute Neutrophil 5.1 K/uL (1.8-8.0); Basophils % 0.8 % (0-1.3); Eosinophils % 3.4 % (0-4.4); Hematocrit 31.9 % (39.6-49.0); Hemoglobin 10.8 g/dL (13.6-17.9); Lymphocytes % 17.8 % (15.3-44.8); MCH 27.8 pg (27.0-35.0); MCHC 33.8 g/dL (32.0-36.0); MCV 82.1 fL (80-100); MPV 7.5 fL (7.6-11.3); Monocytes % 12.4 % (3.3-12.3); Neutrophils % 65.6 % (41.7-73.7); Platelets 121 thou/uL (152-406); RBC Red Blood Cell Count 3.89 M/uL (4.33-5.43); Red Cell Distribution Width 20.2 % (12.1-15.2)
--- NOTE | 2024-11-15 16:34 | RAD REPORT ---
EXAMINATION: XR RIGHT FOOT CLINICAL INDICATION: Male, 69 years old. PAIN TECHNIQUE: Multiple views of the right foot were obtained. COMPARISON: 10/28/2024 FINDINGS: Amputation is noted at the base of the first metatarsal. Fifth toe amputation also seen. N o fracture or dislocation apparent. Moderate plantar calcaneal spur. Mild atherosclerosis.
[2024-11-15 16:39] LABS: AST/SGOT 16 U/L (15-37); Albumin 2.8 g/dL (3.4-5.0); Albumin/Globulin Ratio 0.7 (1.1-1.8); Alkaline Phosphatase 73 U/L (45-117); Anion Gap 10.2 mEq/L (5.0-15.0); BUN Blood Urea Nitrogen 25 mg/dL (7-18); Bicarbonate 26 mEq/L (21-32); Bilirubin Total 0.7 mg/dL (0.2-1.0); Globulin 3.8 g/dL (2.3-3.5); Glomerular Filtration Rate 75 ml/min (=/>90); Glucose Level 178 mg/dL (74-106); Lipase 18 U/L (13-75); Potassium 3.2 mEq/L (3.5-5.1); Protein, Total 6.6 g/dL (6.4-8.2); Sodium Level 137 mEq/L (136-145)
[2024-11-15 16:41] LABS: ALT/SGPT < 14 U/L (16-61)
[2024-11-15 17:04] LABS: Platelet Estimate DECR; White Blood Cell Scan OK (OK)
[2024-11-15 17:05] LABS: Anisocytosis 1+; Blood Morphology Comment NOTED (NOT SEEN); Ovalocytes SLIGHT; Poikilocytosis SLIGHT
--- NOTE | 2024-11-15 18:12 | ER ---
Nurse's Notes [facility] Name: Donaldo English Age: 69 yrs Sex: Male : 1955 Arrival Date: 11/15/2024 Time: 15:35 Bed 6 Private MD: Diagnosis: Wound infection - right foot Presentation: 11/15 15:46 Chief complaint: EMS states: [facility] staff called due to pt being distended and jb4 reporting abdominal pain. When the pt passes gas, he reports feeling better. Coronavirus screen: At this time, the client does not indicate any symptoms associated with coronavirus-19. Ebola Screen: No symptoms or risks identified at this time. Initial Sepsis Screen: Does the patient meet any 2 criteria? HR > 90 bpm. Yes Does the patient have a suspected source of infection? No. Patient's initial sepsis screen is negative. Risk Assessment: Do you want to hurt yourself or someone else? Patient reports no desire to harm self or others. Onset of symptoms was November 15, 2024. Transition of care: patient was received from another setting of care (long-term care facility), [facility]. 15:46 Method Of Arrival: EMS: [facility] jb4 15:46 Acuity: LILIANA 3 jb4 Historical: - Allergies: 15:50 No Known Allergies; jb4 - PMHx: 15:50 Cerebrovascular accident; coronary atherosclerosis; Dementia; depressive disorder; jb4 diabetes mellitus; dysphasia (Speech disturbances); Hypertensive disorder; Hypothyroidism; Right sided weakness; schizoaffective disorder; Seizure; Speech disturbances; - PSHx: 15:50 Right foot (Speech disturbances); jb4 19:53 Quadruple bipass; jb4 - Immunization history:: Adult Immunizations unknown. - Infectious Disease History:: Denies. - Social history:: Smoking status: Patient denies any tobacco usage or history of. Screenin:00 [facility] ED Fall Risk Assessment (Adult) History of falling in the last 3 months, jb4 including since admission No falls in past 3 months (0 pts) Confusion or Disorientation Yes (5 pts) Intoxicated or Sedated No (0 pts) Impaired Gait Yes (1 pt) Mobility Assist Device Used No (0 pt) Altered Elimination Yes (1 pt) Score/Fall Risk Level 3 or more points = High Risk Oriented to surroundings, Maintained a safe environment. Abuse screen: Denies threats or abuse. Nutritional screening: No deficits noted. Tuberculosis screening: No symptoms or risk factors identified. Assessment: 15:50 General: Appears in no apparent distress. uncomfortable, Behavior is calm, cooperative. jb4 Pain: Complains of pain in abdomen Pain does not radiate. Unable to use pain scale. Patient is disoriented. FLACC scale score is 3 out of 10. Neuro: Level of Consciousness is awake, alert, obeys commands, Oriented to person. Cardiovascular: Patient's skin is warm and dry. Respiratory: Airway is patent Respiratory effort is even, unlabored, Respiratory pattern is regular, symmetrical. Derm: Skin is pink, warm \T\ dry. Surgical wound noted to the right foot. Musculoskeletal: Circulation, motion, and sensation intact. Range of motion: intact in all extremities. 17:00 Reassessment: Patient appears in no apparent distress at this time. No changes from jb4 previously documented assessment. Patient and/or family updated on plan of care and expected duration. Pain level reassessed. 18:27 Reassessment: Pt resting in bed with eyes closed, respirations are even and unlabored jb4 with no s/s of pain or distress noted. 19:30 Reassessment: Patient appears in no apparent distress at this time. No changes from jb4 previously documented assessment. Patient and/or family updated on plan of care and expected duration. Pain level reassessed. 20:57 Reassessment: Patient appears in no apparent distress at this time. No changes from jb4 previously documented assessment. Patient and/or family updated on plan of care and expected duration. Pain level reassessed. Vital Signs: 15:46 BP 123 / 70; Pulse 110; Resp 16; Temp 97.6(O); Pulse Ox 100% on R/A; Weight 85.28 kg; jb4 Height 5 ft. 11 in. ; 17:18 BP 113 / 79; Pulse 121; Resp 18; Pulse Ox 97% on R/A; jb4 18:27 BP 115 / 62; Pulse 103; Resp 16; Pulse Ox 100% on R/A; jb4 15:46 Body Mass Index 26.22 (85.28 kg, 180.34 cm) jb4 ED Course: 15:37 Patient arrived in ED. sb4 15:37 Lizbet Charles [facility]-C [facility]. sb4 15:37 Dominic Thorpe MD is Attending Physician. sb4 15:50 Triage completed. jb4 15:50 Arm band placed on right wrist. jb4 16:10 Inserted saline lock: 20 gauge in right wrist, using aseptic technique. Blood collected.jb4 16:12 CBC with Diff Sent. jb4 16:12 CMP Sent. jb4 16:12 Lipase Sent. jb4 16:26 Foot Right 3 View XRAY In Process Unspecified. EDMS 16:53 Diet tray given. sp 17:11 Rubio Dietz, RN is Primary Nurse. jb4 18:08 Prince Torres MD is Hospitalizing Provider. sb4 18:36 CT Abd/Pelvis - IV Contrast Only In Process Unspecified. EDMS 18:36 CT Head C Spine In Process Unspecified. EDMS 19:00 Patient has correct armband on for positive identification. Placed in gown. Bed in low jb4 position. Call light in reach. Side rails up X 1. Provided Education on: plan of care to daughter. 20:30 No provider procedures requiring assistance completed. Patient admitted, IV remains in jb4 place. Administered Medications: No medications were administered Medication: 21:02 VIS not applicable for this client. jb4 Outcome: 18:11 Decision to Hospitalize by Provider. sb4 20:50 Admitted to Tele accompanied by tech, via stretcher, room 402, with chart, jb4 20:50 Condition: stable 20:50 Discharge instructions given to family, Instructed on the need for admit, Demonstrated understanding of instructions, 21:00 Patient left the ED. vc1 Signatures: Dispatcher [employer] EDSD Zabrina Zamora James, RN HIEN jb4 Tina aHmilton RN RN vc1 Lizbet Charles PA-C PA-C sb4
--- NOTE | 2024-11-15 18:12 | EDPHYS ---
Physician Documentation [facility] Name: Donaldo English Age: 69 yrs Sex: Male : 1955 Arrival Date: 11/15/2024 Time: 15:35 Bed 6 Private MD: ED Physician Dominic Thorpe HPI: 11/15 17:20 This 69 yrs old Male presents to ER via EMS with complaints of Abdominal Distention. sb4 17:39 69-year-old male with history of dementia presents from the long term with concerns sb4 of abdominal distention. Staff noticed that his abdomen was more distended than normal and he had an episode of diarrhea. They contacted his daughter and she requested he be evaluated in the emergency department. Patient reports mild diffuse abdominal pain. No vomiting. History is very limited secondary to his dementia. The long term also requested his right foot be evaluated. He underwent amputation of his great toe about 1 month ago. Historical: - Allergies: 15:50 No Known Allergies; jb4 - PMHx: 15:50 Cerebrovascular accident; coronary atherosclerosis; Dementia; depressive disorder; jb4 diabetes mellitus; dysphasia (Speech disturbances); Hypertensive disorder; Hypothyroidism; Right sided weakness; schizoaffective disorder; Seizure; Speech disturbances; - PSHx: 15:50 Right foot (Speech disturbances); jb4 19:53 Quadruple bipass; jb4 - Immunization history:: Adult Immunizations unknown. - Infectious Disease History:: Denies. - Social history:: Smoking status: Patient denies any tobacco usage or history of. ROS: 17:39 Constitutional: Negative for fever, chills, and weight loss, sb4 17:39 Abdomen/GI: Positive for abdominal distension, 17:39 All other systems are negative, Exam: 17:39 Head/Face: Normocephalic, atraumatic. Eyes: Extra-ocular motions intact. Periorbital sb4 areas with no swelling, redness, or edema. ENT: Mucous membranes moist. Cardiovascular: Regular rate and rhythm with a normal S1 and S2. Respiratory: No increased work of breathing, no retractions or nasal flaring. Skin: Warm, dry with normal turgor. Normal color with no rashes, no lesions, and no evidence of cellulitis. 17:39 Constitutional: The patient appears in no acute distress, alert, awake, 17:39 Abdomen/GI: Inspection: distension, that is moderate, in the right upper quadrant, left upper quadrant, right lower quadrant and left lower quadrant, Bowel sounds: normal, Palpation: nontender, 17:43 Musculoskeletal/extremity: open wound s/p first toe amputation right foot with copious sb4 purulent discharge. no surrounding cellulitis. Vital Signs: 15:46 BP 123 / 70; Pulse 110; Resp 16; Temp 97.6(O); Pulse Ox 100% on R/A; Weight 85.28 kg; jb4 Height 5 ft. 11 in. ; 17:18 BP 113 / 79; Pulse 121; Resp 18; Pulse Ox 97% on R/A; jb4 18:27 BP 115 / 62; Pulse 103; Resp 16; Pulse Ox 100% on R/A; jb4 15:46 Body Mass Index 26.22 (85.28 kg, 180.34 cm) jb4 MDM: 15:44 Medical Screening Exam initiated sb4 17:43 Data reviewed: vital signs, nurses notes, EMS record, long term records, lab test sb4 result(s), radiologic studies, and as a result, I will admit patient. Consideration of Admission/Observation Patient was admitted/placed on observation. Management of patient was discussed with the following: [employer] Salesperson: Dr. Flores, will take patient to OR tomorrow for debridement. Counseling: I had a detailed discussion with the patient and/or guardian regarding the historical points, exam findings, and any diagnostic results supporting the discharge/admit diagnosis, lab results, radiology results, the need for further work-up and treatment in the hospital. 11/15 15:40 Order name: CBC with Diff; Complete Time: 17:07 sb4 11/15 15:40 Order name: CMP; Complete Time: 16:45 sb4 11/15 15:40 Order name: Lipase; Complete Time: 16:45 sb4 11/15 15:40 Order name: Urinalysis w/ reflexes; Complete Time: 08:33 sb4 11/15 16:29 Order name: CBC Smear Scan; Complete Time: 17:07 EDMS 11/15 19:04 Order name: Lactate w/ 2H reflex if indic.; Complete Time: 08:33 EDMS 11/15 19:04 Order name: Magnesium; Complete Time: 08:33 EDMS 11/15 19:04 Order name: NT PRO-BNP; Complete Time: 08:33 EDMS 11/15 19:04 Order name: Phosphorus; Complete Time: 08:33 EDMS 11/15 19:04 Order name: Protime (+INR); Complete Time: 08:33 EDMS 11/15 19:04 Order name: PTT, Activated Partial Thromb; Complete Time: 08:33 EDMS 11/15 19:04 Order name: Urinalysis w/ reflexes EDMS 11/15 19:04 Order name: Basic Metabolic Panel EDMS 11/15 19:04 Order name: Basic Metabolic Panel; Complete Time: 08:33 EDMS 11/15 19:04 Order name: CBC with Automated Diff EDMS 11/15 19:04 Order name: CBC with Automated Diff; Complete Time: 08:33 EDMS 11/15 15:40 Order name: CT Abd/Pelvis - IV Contrast Only; Complete Time: 08:33 sb4 11/15 15:40 Order name: Foot Right 3 View XRAY; Complete Time: 16:36 sb4 11/15 17:09 Order name: CT Head C Spine; Complete Time: 08:33 sb4 11/15 15:40 Order name: IV Saline Lock; Complete Time: 16:12 sb4 11/15 15:40 Order name: Labs collected and sent; Complete Time: 16:12 sb4 Administered Medications: No medications were administered Disposition: 19:18 Co-signature as Attending Physician, Dominic Thorpe MD I reviewed the patient's care rt provided by the Advanced Practice Provider and agree with the diagnosis and treatment plan. Disposition Summary: 11/15/24 18:11 Hospitalization Ordered Notes: Hospitalization Status: Inpatient Admission sb4 Provider: Prince Brian sb Location: Telemetry/[facility] (Inpatient) sb4 Condition: Fair sb4 Problem: new sb4 Symptoms: are unchanged sb4 Bed/Room Type: Standard sb4 Room Assignment: 402(11/15/24 19:17) kmf Diagnosis - Wound infection - right foot sb4 Forms: - Medication Reconciliation Form sb4 - SBAR form sb4 - Leadership Thank You Letter sb4 Signatures: Dispatcher [facility] Rubio Bravo RN RN jb4 Lizbet Charles PA-C PA-C sb4 Dominic Thorpe MD MD rt Rhonda Ascencio kmf Corrections: (The following items were deleted from the chart) 15:40 15:40 CBC+H.LAB.BRZ ordered. EDMS EDMS 15:40 15:40 COMPREHENSIVE METABOLIC PANEL+C.LAB.BRZ ordered. EDMS EDMS 15:40 15:40 LIPASE+C.LAB.BRZ ordered. EDMS EDMS 15:40 15:40 Urinalysis+U.LAB.BRZ ordered. EDMS EDMS 15:40 15:40 Abdomen Pelvis W Con+CT.RAD.BRZ ordered. EDMS EDMS 15:40 15:40 Foot Right 3 View+RAD.RAD.BRZ ordered. EDMS EDMS 17:10 17:10 Head C Spine MPR Wo Con+CT.RAD.BRZ ordered. EDMS EDMS 19:17 18:11 sb4 kmf
[2024-11-15] MEDS ORDERED: ONDANSETRON 4 MG/2 ML VIAL IV PRN (18:58)
[2024-11-15] MEDS: VANCOMYCIN 1 GM in NA CHLORIDE 0.9% 250 ML IVPB SCH (19:00)
--- NOTE | 2024-11-15 19:03 | RAD REPORT ---
EXAM: CT brain without contrast HISTORY: TRAUMA COMPARISON: 11/08/2024 TECHNIQUE: Multiple contiguous axial images were obtained and a CT of the brain without contrast. Sag ittal and coronal reformats were performed. One or more of the following dose reduction techniques were used: Automated exposure control, adjust ment of the mA and/or kV according to patient size, and/or iterative reconstruction. FINDINGS: No evidence of hydrocephalus, intracranial hemorrhage, or extra-axial fluid collection. Mild brain atrophy with mild periventricular and deep white matter chronic microvascular ischemic ch anges present. Gliosis noted left parietal region, unchanged, likely from remote infarct. No evidence of midline shift or areas of brain edema. The calvarium is intact. The visualized paranasal sinuses and mastoid air cells are essentially clear . IMPRESSION: No evidence of acute intracranial abnormality. EXAM: CT of the cervical spine without contrast HISTORY: Neck pain, injury TRAUMA TECHNIQUE: Multiple contiguous axial images were obtained in a CT of the cervical spine without contr ast. Sagittal and coronal reformats were performed. FINDINGS: The vertebral bodies demonstrate normal height and alignment. No evidence of acute fracture or subluxation.. Mild mid cervical spondylosis. No prevertebral soft tissue swelling is seen. Left carotid atherosclerosis. The posterior facets are well aligned. Normal alignment of the skull base with the cervical spine is seen. The lung apices are unremarkable. IMPRESSION: No evidence of acute osseous abnormality of the cervical spine.
--- NOTE | 2024-11-15 19:07 | RAD REPORT ---
EXAMINATION: CT ABDOMEN AND PELVIS WITH CONTRAST CLINICAL INDICATION: ABDOMINAL DISTENTION TECHNIQUE: CT abdomen and pelvis was performed, after the administration of IV contrast, as per [facility] protocol. Axial, sagittal and coronal reconstructions were obtained. One or more of the following dose reduction techniques were used: Automated exposure control, adjustment of the mA and k V according to patient size, and iterative reconstruction. Unless otherwise specified, incidental findings do not require dedicated imaging follow-up. COMPARISON: 07/29/2024 FINDINGS: LOWER CHEST: Mild linear subsegmental atelectasis in the right lung base. LIVER: Normal in size and contour. No focal lesion. Numerous gallstones are present in the gallbladde r. SPLEEN: Normal size. No focal lesion. PANCREAS: No mass, ductal dilation, or jocelyne-pancreatic fluid. ADRENALS: Normal; no mass. KIDNEYS: Normal size and contour. No hydronephrosis. GASTROINTESTINAL TRACT: No evidence of free air, significant intra-abdominal free fluid, bowel obstru ction or abscess. There is severe distention of the colon seen. Transverse colon, for example maximally measures 12 cm in dimension. No pneumatosis. APPENDIX: Appendix not visualized, but no inflammatory changes in region of appendix. LYMPH NODES: No lymphadenopathy. MUSCULOSKELETAL: No acute or suspicious osseous abnormality. ADDITIONAL FINDINGS: There is vas deferens calcifications, associated with diabetes. IMPRESSION: Quite severe diffuse gaseous distention of the colon as detailed, similar to prior study. Consider Og ilvie's syndrome. Cholelithiasis.
--- NOTE | 2024-11-15 19:10 | P.HP ---
Certification for Inpatient Patient admitted to: Inpatient With expected LOS: >2 Midnights Practitioner: I am a practitioner with admitting privileges, knowledge of patient current condition, hospital course, and medical plan of care. Services: Services provided to patient in accordance with Admission requirements found in Title 42 Section 412.3 of the Code of Federal Regulations Patient History Date of Service: 11/15/24 Reason for admission: Wound cellulitis and abscess History of Present Illness: Patient is a 69-year-old male with diabetes mellitus, peripheral v ascular disease with critical right popliteal stenosis s/p angioplasty and right great toe partial amputation in September 2024. He has a history of Alzheimer dementia and prior CVA with residual aphasia. Patient is unable to give HPI. He returns to the hospital after recent hospitalization for wound cellulitis. Patient underwent debridement of the right foot on 10/30. He now returns with evidence of devitalized tissues, abnormal growth and abnormal wound healing. Patient also has significant abdominal distention. Dr. Brady has been consulted by ER. Patient will be started on broad-spectrum antibiotics. Allergies No Known Allergies Allergy (Verified 10/15/24 02:56) Home Medications: Atorvastatin Calcium 40 mg PO BEDTIME 05/31/21 Clopidogrel Bisulfate [Plavix] 75 mg PO DAILY 05/31/21 Furosemide [Lasix] 20 mg PO DAILY 05/31/21 Insulin Glargine,Hum.rec.anlog [Lantus] 26 unit SQ BID 05/31/21 Acetaminophen [Tylenol] 650 mg PO Q4HP PRN 05/20/24 Amlodipine [Norvasc*] 5 mg PO DAILY 05/20/24 Aripiprazole [Abilify] 5 mg PO BEDTIME 05/20/24 Aspirin 325 mg PO DAILY 05/20/24 Divalproex [Depakote Sprinkle*] 4 cap PO BID 05/20/24 Gabapentin [Neurontin*] 100 mg PO DAILY 05/20/24 Omeprazole 20 mg PO DAILY 05/20/24 Potassium Chloride 20 meq PO DAILY 05/20/24 Rivastigmine Tartrate [Rivastigmine] 1.5 mg PO BID 05/20/24 Sertraline HCl 50 mg PO DAILY 05/20/24 Sitagliptin Phosphate [Januvia] 100 mg PO DAILY 05/20/24 levETIRAcetam [Keppra] 10 ml PO BID 05/20/24 Lactulose 30 ml PO Q12HP PRN 06/10/24 Levothyroxine Sodium 125 mcg PO 0600 06/10/24 Insuln Asp Prt/Insulin Aspart [Novolog Mix 70-30 Vial] See Protocol SQ BID 10/11/24 Lactobacillus Combination No.4 [Probiotic] 2 cap PO DAILY 10/11/24 Metoprolol Tartrate [Lopressor*] 25 mg PO BID 10/11/24 Simethicone [Gas Relief] 125 mg PO Q6HP PRN 10/11/24 Bisacodyl [Dulcolax*] 10 mg NC DAILY PRN #0 supp 10/21/24 Collagenase [Santyl Ointment*] 1 appl TOP DAILY tube 10/21/24 Hydrocodone 5/APAP 325 [Dunlap 5/325*] 1 tab PO Q6H PRN #15 tab 10/21/24 Silver Sulfadiazine Crm [Silvadene*] 1 appl TOP DAILY tube 10/21/24 Amino Acids/Protein Hydrolys [Prosource No Carb Liquid Pkt] 30 ml PO BID #60 packet 11/05/24 Amox/Clavulanate [Augmentin 875-125 Tab*] 875 mg PO BID #14 tab 11/05/24 Linezolid [Zyvox*] 600 mg PO BID #20 tab 11/05/24 - Past Medical/Surgical History Diabetic: Yes -: cva residual right-sided weakness -: Depressive disorder -: gallstones -: diabetic retinopathy -: depression -: thyroid disease -: siezures -: CAD -: Diabetes mellitusIDDM -: Schizophrenia -: Speech disturbances -: Dimension -: CABG -: thyoidectomy -: right 5th toe amputation -: BLE stents - Social History Alcohol use: No CD- Drugs: No Caffeine use: No Physical Examination - Physical Exam General: Mild distress HEENT: Atraumatic, Normocephalic Cardiovascular: No edema, Normal pulses, Regular rate/rhythm, Normal S1 S2 Gastrointestinal: Distended, Tenderness Neurological: Dementia - Studies Laboratory Data (last 24 hrs) 11/15/24 11/15/24 16:10 16:10 WBC 7.90 Hgb 10.8 L Hct 31.9 L Plt Count 121 L Sodium 137 Potassium 3.2 L BUN 25 H Creatinine 1.08 Glucose 178 H Total Bilirubin 0.7 AST 16 ALT < 14 L Alkaline Phosphatase 73 Lipase 18 Assessment and Plan - Problems (Diagnosis) (1) Amputation of right great toe Current Visit: No Status: Acute (2) Arterial leg ulcer Current Visit: No Status: Acute (3) Depression Current Visit: No Status: Acute (4) Diabetes Current Visit: No Status: Acute (5) Diabetic foot ulcer Current Visit: No Status: Acute (6) Diabetic retinopathy Current Visit: No Status: Acute - Plan Patient is a 69-year-old male with extensive cardiovascular history including CABG, severe peripheral artery disease, uncontrolled diabetes mellitus status post right great toe amputation for abscess and necrosis. He now returns to the hospital after recent wound debridement for poorly healing wound. Patient has evidence of devitalized tissue and abnormal growth on his right foot. He is being admitted for wound cellulitis with possible abscess Postsurgical site infection and wound cellulitis Severe peripheral artery disease Coronary disease status post CABG History of CVA with residual dysphagia and aphasia Insulin-dependent diabetes mellitus Abdominal distention Hypertension Hyperlipidemia Plan: Admit inpatient with telemetry Start broad-spectrum antibiotics include vancomycin, cefepime and Flagyl Consult general surgery N.p.o. after midnight Multimodal pain regimen Follow CT abdomen and pelvis Resume rest of home medication after reconciliation - Advance Directives Does patient have a Living Will: Yes Does patient have a Durable POA for Healthcare: No
[2024-11-15 19:53] LABS: PT Prothrombin Time 12.9 SECONDS (10.0-13.0); PTT, Activated Partial Thromb 32.6 SECONDS (24.3-36.9); Protime INR 1.14
[2024-11-15] MEDS: VANCOMYCIN 1.5 GM in NA CHLORIDE 0.9% 500 ML IVPB SCH (20:00)
[2024-11-15 20:09] LABS: Magnesium 2.1 mg/dL (1.6-2.4)
[2024-11-15] MEDS: VANCOMYCIN 500 MG/VIAL ONE (21:51)
[2024-11-15] MEDS: NA CHLORIDE 0.9% 500 ML ONE (21:53)
[2024-11-15] MEDS: VANCOMYCIN 1 GM/VIAL ONE (21:54)
[2024-11-15] MEDS: CEFEPIME 1 GM in NA CHLORIDE 0.9% 100 ML IV SCH (22:00)
[2024-11-15] MEDS: METRONIDAZOLE 500mg IVPB 500 MG/100 ML BAG IV SCH (22:00)
[2024-11-15] MEDS: NA CHLORIDE 0.9% 1,000 ML IV SCH (22:01)
[2024-11-15 23:14] VITALS: BMI 26.2
[2024-11-16 03:34] LABS: Specific Gravity > 1.030 (1.005-1.030); Sqamous Epithelial None Seen /HPF (None Seen); Urine Bacteria None Seen /HPF (<20); Urine Bilirubin NEGATIVE (Negative); Urine Blood Negative (Negative); Urine Clarity Clear (Clear); Urine Color Yellow (Yellow); Urine Culture Reflex Order NOT NEEDED; Urine Glucose 1+ (Negative); Urine Ketones NEGATIVE (Negative); Urine Microscopic Reflex YN ORDER UMIC; Urine Mucus 1+ /HPF (None Seen); Urine Nitrite NEGATIVE (Negative); Urine Protein 1+ (Negative); Urine RBC <5 /HPF (None Seen); Urine Urobilinogen Normal (Normal); Urine WBC <5 /HPF (<5)
[2024-11-16 06:54] LABS: Absolute Basophils 0.1 K/uL (0-0.5); Absolute Eosinophils 0.6 K/uL (0-0.5); Absolute Lymphocytes (CBC) 0.5 K/uL (0.7-4.9); Absolute Monocytes 1.1 K/uL (0.1-1.3); Absolute Neutrophil 7.1 K/uL (1.8-8.0); Basophils % 0.6 % (0-1.3); Eosinophils % 5.9 % (0-4.4); Hematocrit 29.2 % (39.6-49.0); Lymphocytes % 5.7 % (15.3-44.8); MCH 28.2 pg (27.0-35.0); MCHC 34.2 g/dL (32.0-36.0); MCV 82.6 fL (80-100); MPV 7.3 fL (7.6-11.3); Monocytes % 11.5 % (3.3-12.3); Neutrophils % 76.3 % (41.7-73.7); Platelets 126 thou/uL (152-406); RBC Red Blood Cell Count 3.53 M/uL (4.33-5.43); Red Cell Distribution Width 20.4 % (12.1-15.2)
[2024-11-16 07:28] LABS: Anion Gap 8.7 mEq/L (5.0-15.0); Potassium 2.7 mEq/L (3.5-5.1)
[2024-11-16] MEDS: CEFEPIME 2 GM in NA CHLORIDE 0.9% 100 ML IV SCH (08:08)
[2024-11-16] MEDS: D5 0.9 NS 1,000 ML IV SCH (08:08)
[2024-11-16] MEDS: VANCOMYCIN 1.5 GM in NA CHLORIDE 0.9% 500 ML IVPB SCH (09:54)
[2024-11-16] MEDS: COLLAGENASE 30 GM OINTMENT TOP SCH (12:23)
[2024-11-16 22:41] LABS: STOOL CONSISTENCY Formed/Solid (soft)
[2024-11-16 22:42] LABS: C.diff Antigen/Toxin Ag neg : Tox neg (NEG : NEG); CDIFF INTERNAL NEG CONTROL White Background (WHITE BKGD)
[2024-11-17] MEDS: LIDOCAINE HCL/EPINEPHRINE 20 ML MDV ONE (09:47)
[2024-11-17] MEDS: KCL 20 MEQ/100 mL IVPB 20 MEQ/100 ML BAG IV SCH (11:38)
[2024-11-17] MEDS: VANCOMYCIN 1.5 GM in NA CHLORIDE 0.9% 500 ML IVPB SCH (18:02)
[2024-11-18 07:36] LABS: Absolute Basophils 0.1 K/uL (0-0.5); Absolute Eosinophils 0.3 K/uL (0-0.5); Absolute Lymphocytes (CBC) 0.8 K/uL (0.7-4.9); Absolute Monocytes 0.7 K/uL (0.1-1.3); Absolute Neutrophil 4.2 K/uL (1.8-8.0); Basophils % 1.1 % (0-1.3); Eosinophils % 5.3 % (0-4.4); Hematocrit 26.7 % (39.6-49.0); Hemoglobin 8.8 g/dL (13.6-17.9); Lymphocytes % 13.2 % (15.3-44.8); MCH 27.5 pg (27.0-35.0); MCHC 33.1 g/dL (32.0-36.0); MCV 83.1 fL (80-100); Monocytes % 11.7 % (3.3-12.3); Neutrophils % 68.7 % (41.7-73.7); Nucleated Red Blood Cells % 0.1 % (0-0); Platelets 143 thou/uL (152-406); RBC Red Blood Cell Count 3.21 M/uL (4.33-5.43); Red Cell Distribution Width 20.1 % (12.1-15.2)
[2024-11-18 07:59] LABS: Albumin 2.4 g/dL (3.4-5.0); Albumin/Globulin Ratio 0.8 (1.1-1.8); Alkaline Phosphatase 52 U/L (45-117); Anion Gap 6.8 mEq/L (5.0-15.0); BUN Blood Urea Nitrogen 8 mg/dL (7-18); Bicarbonate 29 mEq/L (21-32); Bilirubin Total 0.7 mg/dL (0.2-1.0); Globulin 2.9 g/dL (2.3-3.5); Glomerular Filtration Rate 106 ml/min (=/>90); Glucose Level 159 mg/dL (74-106); Potassium 2.8 mEq/L (3.5-5.1); Protein, Total 5.3 g/dL (6.4-8.2); Sodium Level 142 mEq/L (136-145)
[2024-11-18 08:01] LABS: ALT/SGPT < 14 U/L (16-61); AST/SGOT < 10 U/L (15-37)
[2024-11-18] MEDS: KCL 20 MEQ/100 mL IVPB 20 MEQ/100 ML BAG IV SCH (09:21)
[2024-11-18] MEDS: ACETAMINOPHEN 325 MG TABLET PO PRN (10:20)
[2024-11-18] MEDS ORDERED: propofoL 200 MG/20 ML VIAL IV ONE ×2 (12:07→13:15)
[2024-11-18] MEDS ORDERED: LIDOCAINE 2% MPF 5 ML VIAL ONE (12:07)
[2024-11-18] MEDS ORDERED: ONDANSETRON 4 MG/2 ML VIAL ONE (12:07)
[2024-11-18] MEDS ORDERED: FENTANYL CITR 100 MCG/2 ML ONE (12:07)
[2024-11-18] MEDS: NA CHLORIDE 0.9% 1,000 ML ONE (12:13)
[2024-11-18] MEDS: LIDOCAINE HCL/EPINEPHRINE 20 ML MDV ONE (13:10)
--- NOTE | 2024-11-18 13:25 | P.OP ---
Preoperative diagnosis: RIGHT Foot Chronic Wound (@ 1st MT) Postoperative diagnosis: RIGHT Foot Chronic Wound (@ 1st MT) Primary procedure: Debridement of RIGHT Foot Chronic Wound (@ 1st MT) Anesthesia: MAC + Local Estimated blood loss: <1cc Specimen: Cultures, Debridement Tissue Findings: ~ 6cm x 4cm wound, exposed bone, tendon, poor vascular supply Complications: None Transferred to: Recovery Room Condition: Good
[2024-11-18 13:50] VITALS: O2SAT 100
--- NOTE | 2024-11-18 19:21 | OP ---
Date of Procedure: 11/18/2024 Surgeon: Mc Flores MD, Preoperative Diagnosis: Right foot chronic wound at the first metatarsal. Postoperative Diagnosis: Right foot chronic wound at the first metatarsal. Procedure Performed: Debridement of right foot chronic wound at the first metatarsal. Anesthesia: MAC plus local 1% lidocaine with epinephrine. Estimated Blood Loss: Less than 1 cc. Specimens: Culture sent, both aerobic and anaerobic speciation, and debridement tissue. Findings: Approximately 6 cm x 4 cm wound with exposed bone, tendon, and poor vascularity. Complications: None. Disposition: The patient was transferred to recovery room in good condition. Procedure In Detail: After informed consent was obtained, the patient was brought to the operating r oom, prepped and draped in the usual sterile fashion, after adequate anesthesia was achieved. I anes thetized an area of the right foot down to subcutaneous tissues. I opened up this wound where there was obviously dry desiccated tissue there, some degree of slough necrosis. I debrided it circumferen tially all the way down to bleeding tissue. However, bleeding was minimal, oozing at best during the entirety of the surgery. After all nonviable tissue was removed, the area was cultured for both aer obic and anaerobic speciation. I then irrigated the area multiple times and packed the wound with Be tadine-soaked gauze and a sterile dressing placed over top. The patient tolerated the procedure with out incident or complication and transferred to PACU in good condition. All counts were correct at t he end of the case. LILIA/INGRID Voice ID: [id number] Report ID: [id number]
[2024-11-18] MEDS: KCL 20 MEQ/100 mL IVPB 20 MEQ/100 ML BAG IV ONE (20:27)
[2024-11-18] MEDS: LORazepam 2 MG/ML VIAL IV ONE (21:30)
[2024-11-19 07:34] LABS: Anion Gap 8.5 mEq/L (5.0-15.0); Potassium 3.5 mEq/L (3.5-5.1)
[2024-11-19] MEDS: KCL 20 MEQ/100 mL IVPB 20 MEQ/100 ML BAG IV SCH (11:39)
[2024-11-20 08:37] LABS: Anion Gap 10.4 mEq/L (5.0-15.0); Potassium 3.4 mEq/L (3.5-5.1)
[2024-11-20 16:42] VITALS: BP 100/57; TEMP 98.1
--- NOTE | 2024-11-28 02:03 | P.PN ---
Date of Service: 11/17/24 Subjective Patient is clinically doing well. Patient's continuing with wound care. Continue with pain control. Arranging for outpatient wound care. Spoke with vascular surgery and patient had angioplasty last week. Patient should be able to proceed with surgical intervention at this time. Physical Examination - Vital Signs Reviewed - Physical Exam General: Alert, In no apparent distress, Demented Respiratory: Clear to auscultation bilaterally, Normal air movement Cardiovascular: Regular rate/rhythm, Normal S1 S2, No murmurs Gastrointestinal: Normal bowel sounds, Soft and benign, Non-distended, No tenderness Musculoskeletal: No clubbing, No swelling, No tenderness Neurological: Sensation intact, Cranial nerves 3-12 intact - Studies Medications List Reviewed: Yes Assessment & Plan - Problems (Diagnosis) (1) Amputation of right great toe Status: Acute (2) Arterial leg ulcer Status: Acute (3) Depression Status: Acute (4) Diabetes Status: Acute (5) GERD (gastroesophageal reflux disease) Status: Acute (6) History of CVA (cerebrovascular accident) Status: Acute (7) History of four vessel coronary artery bypass graft Status: Acute (8) Hx of thyroidectomy Status: Acute (9) Hyperlipidemia Status: Acute (10) Hypertension Status: Acute (11) Hypothyroidism Status: Acute (12) PAD (peripheral artery disease) Status: Acute (13) Type 2 diabetes mellitus with diabetic peripheral angiopathy without gangrene Status: Acute - Plan Continue with plan of care as mentioned below: 1. Diabetic foot wound; continue with IV antibiotics and strict blood sugar control 2. Peripheral arterial disease; continue with antiplatelet therapy and statin therapy and 3. Depression; continue with antidepressant 4. Schizophrenia; continue with antipsychotics 5. GI and DVT prophylaxis Discharge Plan: Home Plan to discharge in: Greater than 2 days - Advance Directives Does patient have a Living Will: No Does patient have a Durable POA for Healthcare: Yes - Code Status/Comfort Care Code Status Assessed: Yes Code Status: Full Code Critical Care: No Time Spent Managing PTS Care (In Minutes): 35
--- NOTE | 2024-11-28 02:03 | P.PN ---
Subjective Date of Service: 11/16/24 Patient is continuing with antibiotics. Try to get a hold of vascular surgery as patient had some kind intervention done last week. Plan for surgical intervention per general surgery in 1 to 2 weeks. Review of Systems 10-point ROS is otherwise unremarkable Physical Examination - Vital Signs Temperature: 98.1 F Blood Pressure: 100/57 Pulse: 79 Respirations: 16 Pulse Ox (%): 100 - Physical Exam General: Alert, In no apparent distress, Demented Respiratory: Clear to auscultation bilaterally, Normal air movement Cardiovascular: Regular rate/rhythm, Normal S1 S2, No murmurs Gastrointestinal: Normal bowel sounds, Soft and benign, Non-distended, No tenderness Musculoskeletal: No clubbing, No swelling, No tenderness Neurological: Sensation intact, Cranial nerves 3-12 intact - Studies Medications List Reviewed: Yes Assessment & Plan - Problems (Diagnosis) (1) Amputation of right great toe Status: Acute (2) Arterial leg ulcer Status: Acute (3) Depression Status: Acute (4) Diabetes Status: Acute (5) GERD (gastroesophageal reflux disease) Status: Acute (6) History of CVA (cerebrovascular accident) Status: Acute (7) History of four vessel coronary artery bypass graft Status: Acute (8) Hx of thyroidectomy Status: Acute (9) Hyperlipidemia Status: Acute (10) Hypertension Status: Acute (11) Hypothyroidism Status: Acute (12) PAD (peripheral artery disease) Status: Acute (13) Type 2 diabetes mellitus with diabetic peripheral angiopathy without gangrene Status: Acute - Plan Plan: 1. Diabetic foot wound; continue with IV antibiotics and strict blood sugar control 2. Peripheral arterial disease; continue with antiplatelet therapy and statin therapy and 3. Depression; continue with antidepressant 4. Schizophrenia; continue with antipsychotics 5. GI and DVT prophylaxis Discharge Plan: Home Plan to discharge in: Greater than 2 days - Advance Directives Does patient have a Living Will: No Does patient have a Durable POA for Healthcare: Yes - Code Status/Comfort Care Code Status Assessed: Yes Code Status: Full Code Critical Care: No Time Spent Managing PTS Care (In Minutes): 35
--- NOTE | 2024-11-28 02:05 | P.PN ---
Date of Service: 11/18/24 Subjective Patient clinical symptoms are improving. Patient denies any new complaints. Plan to go to the OR later today. Physical Examination - Vital Signs Reviewed - Physical Exam General: Alert, In no apparent distress, Demented Respiratory: Clear to auscultation bilaterally, Normal air movement Cardiovascular: Regular rate/rhythm, Normal S1 S2, No murmurs Gastrointestinal: Normal bowel sounds, Soft and benign, Non-distended, No tenderness Musculoskeletal: No clubbing, No swelling, No tenderness Neurological: Sensation intact, Cranial nerves 3-12 intact - Studies Medications List Reviewed: Yes Assessment & Plan - Problems (Diagnosis) (1) Amputation of right great toe Status: Acute (2) Arterial leg ulcer Status: Acute (3) Depression Status: Acute (4) Diabetes Status: Acute (5) GERD (gastroesophageal reflux disease) Status: Acute (6) History of CVA (cerebrovascular accident) Status: Acute (7) History of four vessel coronary artery bypass graft Status: Acute (8) Hx of thyroidectomy Status: Acute (9) Hyperlipidemia Status: Acute (10) Hypertension Status: Acute (11) Hypothyroidism Status: Acute (12) PAD (peripheral artery disease) Status: Acute (13) Type 2 diabetes mellitus with diabetic peripheral angiopathy without gangrene Status: Acute - Plan Continue with plan of care as mentioned below: 1. Diabetic foot wound; continue with IV antibiotics and strict blood sugar control 2. Peripheral arterial disease; continue with antiplatelet therapy and statin therapy and 3. Depression; continue with antidepressant 4. Schizophrenia; continue with antipsychotics 5. GI and DVT prophylaxis Discharge Plan: Home Plan to discharge in: Greater than 2 days - Advance Directives Does patient have a Living Will: No Does patient have a Durable POA for Healthcare: Yes - Code Status/Comfort Care Code Status Assessed: Yes Code Status: Full Code Critical Care: No Time Spent Managing PTS Care (In Minutes): 35
--- NOTE | 2024-11-28 02:07 | P.PN ---
Date of Service: 11/19/24 Subjective Patient continues to do well. Patient denies any new complaints. Wound care will continue. Wound VAC is going to be placed. Arrange for discharge planning once antibiotics are arranged. Physical Examination - Vital Signs Reviewed - Physical Exam General: Alert, In no apparent distress, Demented Respiratory: Clear to auscultation bilaterally, Normal air movement Cardiovascular: Regular rate/rhythm, Normal S1 S2, No murmurs Gastrointestinal: Normal bowel sounds, Soft and benign, Non-distended, No tenderness Musculoskeletal: No clubbing, No swelling, No tenderness Neurological: No focal deficits Assessment & Plan - Problems (Diagnosis) (1) Amputation of right great toe Status: Acute (2) Arterial leg ulcer Status: Acute (3) Depression Status: Acute (4) Diabetes Status: Acute (5) GERD (gastroesophageal reflux disease) Status: Acute (6) History of CVA (cerebrovascular accident) Status: Acute (7) History of four vessel coronary artery bypass graft Status: Acute (8) Hx of thyroidectomy Status: Acute (9) Hyperlipidemia Status: Acute (10) Hypertension Status: Acute (11) Hypothyroidism Status: Acute (12) PAD (peripheral artery disease) Status: Acute (13) Type 2 diabetes mellitus with diabetic peripheral angiopathy without gangrene Status: Acute - Plan Continue with plan of care as mentioned below: 1. Diabetic foot wound; continue with IV antibiotics and strict blood sugar control 2. Peripheral arterial disease; continue with antiplatelet therapy and statin therapy and 3. Depression; continue with antidepressant 4. Schizophrenia; continue with antipsychotics 5. GI and DVT prophylaxis Discharge Plan: Home Plan to discharge in: Greater than 2 days - Advance Directives Does patient have a Living Will: No Does patient have a Durable POA for Healthcare: Yes - Code Status/Comfort Care Code Status Assessed: Yes Code Status: Full Code Critical Care: No Time Spent Managing PTS Care (In Minutes): 35
--- NOTE | 2024-11-28 02:10 | P.DS ---
Discharge Date: 11/20/24 Disposition: TRANSFER TO ASSISTED Discharge Condition: GOOD Reason for Admission: Wound cellulitis and abscess - Problems (1) Amputation of right great toe Status: Acute (2) Arterial leg ulcer Status: Acute (3) Depression Status: Acute (4) Diabetes Status: Acute (5) GERD (gastroesophageal reflux disease) Status: Acute (6) History of CVA (cerebrovascular accident) Status: Acute (7) History of four vessel coronary artery bypass graft Status: Acute (8) Hx of thyroidectomy Status: Acute (9) Hyperlipidemia Status: Acute (10) Hypertension Status: Acute (11) Hypothyroidism Status: Acute (12) PAD (peripheral artery disease) Status: Acute (13) Type 2 diabetes mellitus with diabetic peripheral angiopathy without gangrene Status: Acute Brief History of Present Illness: Patient is a 69-year-old male with diabetes mellitus, peripheral vascular disease with critical right popliteal stenosis s/p angioplasty and right great toe partial amputation in September 2024. He has a history of Alzheimer dementia and prior CVA with residual aphasia. Patient is unable to g elkin HPI. He returns to the hospital after recent hospitalization for wound cellulitis. Patient underwent debridement of the right foot on 10/30. He now returns with evidence of devitalized tissues, abnormal growth and abnormal wound healing. Patient also has significant abdominal distention. Dr. Brady has been consulted by ER. Patient will be started on broad-spectrum antibiotics. Hospital Course: Patient has done well during hospitalization. Patient is much improved. Patient will continue with wound care at this time. Patient will continue with antibiotic therapy. Patient will follow-up with general surgery as an outpatient. At this time patient is stable for discharge home with outpatient follow-up. Vital Signs/Physical Exam: Temp Pulse Resp BP Pulse Ox 98.1 F 79 16 100/57 L 100 11/28/24 02:02 11/28/24 02:02 11/28/24 02:02 11/28/24 02:02 11/28/24 02:02 General: Alert, In no apparent distress, Oriented x3 Laboratory Data at Discharge: WBC 6.00 thou/uL (4.3-10.9) 11/18/24 07:21 Hgb 8.8 g/dL (13.6-17.9) L 11/18/24 07:21 Hct 26.7 % (39.6-49.0) L 11/18/24 07:21 Plt Count 143 thou/uL (152-406) L 11/18/24 07:21 PT 12.9 SECONDS (10.0-13.0) H 11/15/24 19:36 INR 1.14 11/15/24 19:36 APTT 32.6 SECONDS (24.3-36.9) 11/15/24 19:36 Sodium 142 mEq/L (136-145) 11/20/24 08:10 Potassium 3.4 mEq/L (3.5-5.1) L 11/20/24 08:10 BUN 8 mg/dL (7-18) 11/20/24 08:10 Creatinine 0.57 mg/dL (0.70-1.30) L 11/20/24 08:10 Glucose 158 mg/dL (74-106) H 11/20/24 08:10 Phosphorus 3.0 mg/dL (2.5-4.9) 11/15/24 19:36 Magnesium 2.0 mg/dL (1.6-2.4) 11/18/24 07:21 Total Bilirubin 0.7 mg/dL (0.2-1.0) 11/18/24 07:21 AST < 10 U/L (15-37) L 11/18/24 07:21 ALT < 14 U/L (16-61) L 11/18/24 07:21 Alkaline Phosphatase 52 U/L (45-117) 11/18/24 07:21 Lipase 18 U/L (13-75) 11/15/24 16:10 Home Medications: Atorvastatin Calcium 40 mg PO BEDTIME 05/31/21 Clopidogrel Bisulfate [Plavix] 75 mg PO DAILY 05/31/21 Furosemide [Lasix] 20 mg PO DAILY 05/31/21 Insulin Glargine,Hum.rec.anlog [Lantus] 26 unit SQ BID 05/31/21 Acetaminophen [Tylenol] 650 mg PO Q4HP PRN 05/20/24 Amlodipine [Norvasc*] 5 mg PO DAILY 05/20/24 Aripiprazole [Abilify] 5 mg PO BEDTIME 05/20/24 Aspirin 325 mg PO DAILY 05/20/24 Divalproex [Depakote Sprinkle*] 4 cap PO BID 05/20/24 Gabapentin [Neurontin*] 100 mg PO DAILY 05/20/24 Omeprazole 20 mg PO DAILY 05/20/24 Potassium Chloride 20 meq PO DAILY 05/20/24 Rivastigmine Tartrate [Rivastigmine] 1.5 mg PO BID 05/20/24 Sertraline HCl 50 mg PO DAILY 05/20/24 Sitagliptin Phosphate [Januvia] 100 mg PO DAILY 05/20/24 levETIRAcetam [Keppra] 100 ml PO BID 05/20/24 Lactulose 30 ml PO Q12HP PRN 06/10/24 Levothyroxine Sodium 125 mcg PO 0600 06/10/24 Insuln Asp Prt/Insulin Aspart [Novolog Mix 70-30 Vial] See Protocol SQ BID 10/11/24 Lactobacillus Combination No.4 [Probiotic] 2 cap PO DAILY 10/11/24 Metoprolol Tartrate [Lopressor*] 25 mg PO BID 10/11/24 Simethicone [Gas Relief] 125 mg PO Q6HP PRN 10/11/24 Bisacodyl [Dulcolax*] 10 mg KS DAILY PRN #0 supp 10/21/24 Collagenase [Santyl Ointment*] 1 appl TOP DAILY tube 10/21/24 Hydrocodone 5/APAP 325 [[place] 5/325*] 1 tab PO Q6H PRN #15 tab 10/21/24 Amino Acids/Protein Hydrolys [Prosource No Carb Liquid Pkt] 30 ml PO BID #60 packet 11/05/24 Cefdinir [Cefdinir*] 300 mg PO BID #20 cap 11/20/24 Collagenase [Santyl Ointment*] 1 appl TOP DAILY #0 gm 11/20/24 Hydrocodone 7.5/APAP 325 [[place] 7.5/325 mg] 1 tab PO Q12H PRN #20 tab 11/20/24 Smz./Tmp. [Bactrim Ds 800 MG/160 MG] 1 tab PO BID #20 tab 11/20/24 New Medications: Smz./Tmp. [Bactrim Ds 800 MG/160 MG] 1 tab PO BID #20 tab Cefdinir [Cefdinir*] 300 mg PO BID #20 cap Hydrocodone 7.5/APAP 325 [[place] 7.5/325 mg] 1 tab PO Q12H PRN #20 tab PRN Reason: Pain Physician Discharge Instructions: -DC back to nursing facility[facility] once wound VAC is placed -Follow-up with PCP in 1 to 2 weeks -Follow-up with Surgery, Dr. Flores, in 1 to 2 weeks -Please call Dr. Moon at [phone] if any questions regarding hospital stay -Please call nursing station at [phone] if any nursing or medication questions -Return to the emergency room if symptoms worsen Diet: AHA Activity: Fall precautions Followup: Mc Flores MD [ACTIVE - CAN ADMIT] - 1-2 Weeks (call for apointment.) Edilson Holman MD [Primary Care Provider] - 1-2 Weeks (call for appointment.) Time spent managing pt's care (in minutes): 35
== END 2024-11-20 17:10 | DRG 264 ==
LOC: ER 15:35 → 4TH 18:58
PROVIDERS: ADMIT Internal Medicine; ATTEND Hospitalist
PROC: 0JBQ0ZZ Excision of Right Foot Subcutaneous Tissue and Fascia, Open Approach (ICD-10-PCS; principal; 2024-11-18 13:30)
DX: E11.52 Type 2 diabetes mellitus with diabetic peripheral angiopathy with gangrene (principal); L03.115 Cellulitis of right lower limb; F02.83 Dementia in other diseases classified elsewhere, unspecified severity, with mood disturbance; L02.415 Cutaneous abscess of right lower limb; G30.9 Alzheimer's disease, unspecified; F20.9 Schizophrenia, unspecified; I10 Essential (primary) hypertension; E03.9 Hypothyroidism, unspecified; E11.319 Type 2 diabetes mellitus with unspecified diabetic retinopathy without macular edema; E11.621 Type 2 diabetes mellitus with foot ulcer; L97.519 Non-pressure chronic ulcer of other part of right foot with unspecified severity; I25.10 Atherosclerotic heart disease of native coronary artery without angina pectoris; I69.391 Dysphagia following cerebral infarction; R13.10 Dysphagia, unspecified; I69.320 Aphasia following cerebral infarction; R47.02 Dysphasia; Z79.4 Long term (current) use of insulin; Z89.411 Acquired absence of right great toe; Z79.82 Long term (current) use of aspirin; Z79.899 Other long term (current) drug therapy; Z79.890 Hormone replacement therapy; Z79.02 Long term (current) use of antithrombotics/antiplatelets
CPT/HCPCS: 36415; 70450; 72125; 74177; 80048; 80053; 80202; 81001; 82947; 83605; 83690; 83735; 83880; 84100; 84132; 85025; 85610; 85730; 87070; 87075; 87077; 87186; 87205; 87324; 88304; 99285; J0692; J2003; J2405; J2704; J3010; J3370; J3480; J3590; J7030; J7040; J7042; Q9967

== ENCOUNTER 2024-11-21 15:37 | Emergency (ER) | payer OTHER ==
[2024-11-21 17:13] LABS: Absolute Eosinophils 0.3 K/uL (0-0.5); Absolute Lymphocytes (CBC) 1.1 K/uL (0.7-4.9); Absolute Monocytes 0.6 K/uL (0.1-1.3); Absolute Neutrophil 5.6 K/uL (1.8-8.0); Basophils % 0.6 % (0-1.3); Eosinophils % 4.3 % (0-4.4); Hematocrit 35.3 % (39.6-49.0); Hemoglobin 11.7 g/dL (13.6-17.9); Lymphocytes % 14.4 % (15.3-44.8); MCH 27.7 pg (27.0-35.0); MCHC 33.2 g/dL (32.0-36.0); MCV 83.2 fL (80-100); MPV 7.8 fL (7.6-11.3); Monocytes % 7.4 % (3.3-12.3); Neutrophils % 73.3 % (41.7-73.7); Platelets 200 thou/uL (152-406); RBC Red Blood Cell Count 4.25 M/uL (4.33-5.43)
[2024-11-21 17:36] LABS: ALT/SGPT 16 U/L (16-61); Albumin/Globulin Ratio 0.8 (1.1-1.8); Alkaline Phosphatase 69 U/L (45-117); BUN Blood Urea Nitrogen 10 mg/dL (7-18); Bicarbonate 29 mEq/L (21-32); Bilirubin Total 0.7 mg/dL (0.2-1.0); Globulin 3.9 g/dL (2.3-3.5); Glomerular Filtration Rate 97 ml/min (=/>90); Glucose Level 238 mg/dL (74-106); Lipase 41 U/L (13-75); Protein, Total 6.9 g/dL (6.4-8.2); Sodium Level 137 mEq/L (136-145)
[2024-11-21 17:40] LABS: AST/SGOT < 10 U/L (15-37)
--- NOTE | 2024-11-21 17:40 | RAD REPORT ---
EXAM: Chest Single View HISTORY: 69 years Male ABDOMINAL DISTENTION COMPARISON: None. FINDINGS: LUNGS/PLEURA: The lungs are clear. No pleural effusions or pneumothorax. No pulmonary edema. Mild mariela vation of the right hemidiaphragm. CARDIAC/MEDIASTINUM: The cardiac silhouette is within normal limits. UPPER ABDOMEN: No significant abnormality. BONES: Sternotomy. No acute abnormality. LINES/TUBES/OTHER: N/A IMPRESSION: No evidence of acute cardiopulmonary disease.
[2024-11-21 18:20] LABS: Specific Gravity 1.013 (1.005-1.030); Sqamous Epithelial None Seen /HPF (None Seen); Urine Bacteria <20 /HPF (<20); Urine Bilirubin NEGATIVE (Negative); Urine Blood Negative (Negative); Urine Clarity Clear (Clear); Urine Color Light-Yellow (Yellow); Urine Culture Reflex Order NOT NEEDED; Urine Glucose 4+ (Over) (Negative); Urine Ketones NEGATIVE (Negative); Urine Microscopic Reflex YN ORDER UMIC; Urine Nitrite NEGATIVE (Negative); Urine Protein NEGATIVE (Negative); Urine RBC <5 /HPF (None Seen); Urine Urobilinogen Normal (Normal); Urine WBC <5 /HPF (<5); Urine pH 6.5 (5.0-7.0)
--- NOTE | 2024-11-21 19:29 | RAD REPORT ---
EXAMINATION: CT HEAD WITHOUT CONTRAST CT CERVICAL SPINE WITHOUT CONTRAST CLINICAL INDICATION: Male, 69 years old. fall;Headache TECHNIQUE: Axial CT images from the skull base to the vertex without intravenous contrast. Axial CT i mages through the cervical spine were obtained without intravenous contrast. Sagittal and coronal reformatted images were created from the data set. Coronal and sagittal reformatted images were creat ed from the data set. One or more of the following dose reduction techniques were used: Automated exposure control, adjustment of the mA and/or kV according to patient size, and/or iterative reconstr uction. Unless otherwise specified, incidental findings do not require dedicated imaging follow-up. [id number]. COMPARISON: 11/15/2024 FINDINGS: Head: INTRACRANIAL: No acute intracranial hemorrhage. No hydrocephalus. No mass effect or midline shift. Mo derate chronic small vessel ischemic changes.Severe cerebral atrophy. Remote left parietal cortical infarct. VASCULATURE: No visualized abnormalities in the arteries or dural venous sinuses. SCALP/SKULL: No calvarial fracture identified. No acute soft tissue abnormality. SINUSES: The visualized paranasal sinuses are mostly clear. No significant mastoid fluid. Cervical spine: ALIGNMENT: The cervical spine has normal alignment without scoliosis or spondylolisthesis. BONE: Vertebral body heights are maintained. No aggressive osseous lesions. DEGENERATIVE: No significant focal degenerative changes. SOFT TISSUE: No significant abnormalities in the soft tissue of the neck. The visualized lung apices are clear. IMPRESSION: No acute intracranial abnormality. No acute fracture or traumatic malalignment of the cervical spine.
--- NOTE | 2024-11-21 19:34 | RAD REPORT ---
EXAMINATION: CT ABDOMEN AND PELVIS WITH CONTRAST CLINICAL INDICATION: Male, 69 years old.ABD PAIN TECHNIQUE: CT abdomen and pelvis was performed, after the administration of IV contrast, [facility]. Axial, sagittal and coronal reconstructions were obtained. One or more of the following dose reduction techniques were used: Automated exposure control, adjustment of the mA and/o r kV according to patient size, and/or iterative reconstruction. Unless otherwise specified, incidental findings do not require dedicated imaging follow-up. [id number]. COMPARISON: 11/15/2024 FINDINGS: LOWER CHEST: Bilateral pleural effusions and associated atelectasis.No significant pericardial effusi on. Mild coronary artery calcifications.Mild circumferential thickening of the distal esophagus which could reflect esophagitis. Aortic valve and mitral annular calcifications. UPPER GI: No significant abnormality. LIVER: No significant focal abnormality. GALLBLADDER/BILE DUCTS: Cholelithiasis without CT evidence of acute cholecystitis.? PANCREAS: Atrophy but no acute findings. SPLEEN: Unremarkable. ADRENALS: No adrenal masses. KIDNEYS AND URETERS: No hydronephrosis.No suspicious renal mass.No renal calculi. ABDOMINAL AORTA AND OTHER VESSELS: Mild atherosclerotic changes. PERITONEUM: No abnormal free fluid. No free air. LYMPH NODES: No pathologic lymphadenopathy. ABDOMINAL WALL: Unremarkable SMALL BOWEL/COLON: Significantly distended sigmoid colon measuring up to 9.6 cm is similar to prior i maging. URINARY BLADDER: Underdistended but grossly unremarkable. REPRODUCTIVE ORGANS: No pathologic process. MUSCULOSKELETAL: Multilevel degenerative changes in the spine. No acute fracture. Mild dehiscence of the sternotomy is similar. ADDITIONAL FINDINGS: None. IMPRESSION: Significantly distended sigmoid colon which is a chronic finding. No new acute process in the abdomen or pelvis identified.
--- NOTE | 2024-11-21 19:47 | ER ---
Nurse's Notes [facility] Name: Donaldo English Age: 69 yrs Sex: Male : 1955 Arrival Date: 11/21/2024 Time: 15:37 Bed 5 Private MD: Diagnosis: Acute post-traumatic headache;Abdominal pain, unspecified;History of falling Presentation: 11/21 15:44 Chief complaint: EMS states: WITNESSED FALL FROM CREE[place] FELL AND HIT HEAD ON "BLOOD db THINNERS" CHART STATES IS TAKING ASPIRIN. RECENT RIGHT FOOT TOE AMPUTATION. FELL AND HIT BACK OF HEAD ON DRESSER. COMPLAINS OF BACK OF HEAD PAIN. Coronavirus screen: Client denies travel out of the [place] in the last 14 days. At this time, the client does not indicate any symptoms associated with coronavirus-19. Ebola Screen: Patient negative for fever greater than or equal to 101.5 degrees Fahrenheit, and additional compatible Ebola Virus Disease symptoms Patient denies exposure to infectious person. Patient denies travel to an Ebola-affected area in the 21 days before illness onset. No symptoms or risks identified at this time. Initial Sepsis Screen: Does the patient meet any 2 criteria? No. Patient's initial sepsis screen is negative. Does the patient have a suspected source of infection? No. Patient's initial sepsis screen is negative. Risk Assessment: Do you want to hurt yourself or someone else? Patient reports no desire to harm self or others. Onset of symptoms was November 21, 2024. Care prior to arrival: Glucose check: 316. 15:44 Acuity: LILIANA 3 db 15:44 Method Of Arrival: EMS: [facility] db 16:00 Mechanism of Injury: Fall from standing position. Trauma event details: Injury occurred db in the [facility]. Triage Assessment: 15:44 General: Appears in no apparent distress. comfortable, Behavior is calm, cooperative. db Pain: Complains of pain in scalp. Neuro: Level of Consciousness is awake, alert, obeys commands, Oriented to person, place, time, situation. Respiratory: Airway is patent Respiratory effort is even, unlabored, Respiratory pattern is regular, symmetrical. Trauma Activation: Not Applicable Physician: ED Physician; Name: ; Notified At: ; Arrived At: Physician: General Surgeon; Name: ; Notified At: ; Arrived At: Physician: Radiology; Name: ; Notified At: ; Arrived At: Physician: Respiratory; Name: ; Notified At: ; Arrived At: Physician: Lab; Name: ; Notified At: ; Arrived At: Historical: - Allergies: 15:56 No Known Allergies; db - PMHx: 15:56 Cerebrovascular accident; coronary atherosclerosis; depressive disorder; diabetes db mellitus; Hypertensive disorder; Hypothyroidism; dysphasia (Speech disturbances); Dementia; schizoaffective disorder; Speech disturbances; Right sided weakness; Seizure; - PSHx: 15:56 Quadruple bipass; right foot (d); db - Immunization history:: Adult Immunizations unknown. - Infectious Disease History:: Denies. - Immunization history: Last tetanus immunization: unknown. - Social history:: Smoking status: Patient denies any tobacco usage or history of. Screenin:29 Abuse screen: Denies threats or abuse. Denies injuries from another. Tuberculosis db screening: No symptoms or risk factors identified. 17:29 [facility] ED Fall Risk Assessment (Adult) History of falling in the last 3 months, db including since admission Yes- physiologic fall (2 pts) Confusion or Disorientation No (0 pts) Intoxicated or Sedated No (0 pts) Impaired Gait Yes (1 pt) Mobility Assist Device Used Yes (1 pt) Altered Elimination No (0 pt) Score/Fall Risk Level 3 or more points = High Risk Oriented to surroundings, Maintained a safe environment. Nutritional screening: No deficits noted. Primary Survey: 16:15 NO uncontrolled hemorrhage observed. A: The client responds to verbal stimuli. db Breathing/Chest: Spontaneous respiratory effort, equal unlabored respirations, breath sounds clear bilaterally, regular pattern, symmetrical chest rise and fall. Respiratory effort: spontaneous, unlabored. Circulation: No external hemorrhage present. Regular and strong central pulse, skin warm/dry/normal color. Disability. Exposure/Environment: A warming method has been applied: A warm blanket has been provided to the patient. Reassessment Breathing: Spontaneous respiratory effort, equal unlabored respirations, breath sounds clear bilaterally, regular pattern with symmetrical chest rise and fall. Circulation: No external hemorrhage noted. Regular and strong central pulse, skin warm/dry/normal color. Disability:. Assessment: 15:57 Reassessment: SEE TRIAGE FOR INITIAL ASSESSMENT. db 17:27 Reassessment: Patient appears in no apparent distress at this time. Patient and/or db family updated on plan of care and expected duration. Pain level reassessed. General: Appears in no apparent distress. comfortable, Behavior is calm, cooperative. Neuro: Level of Consciousness is obeys commands, Oriented to person. Respiratory: Airway is patent Respiratory effort is even, unlabored, Respiratory pattern is regular, symmetrical. 18:30 Reassessment: Patient appears in no apparent distress at this time. Patient and/or db family updated on plan of care and expected duration. Pain level reassessed. 21:14 Reassessment: [facility] SETTING UP [facility] FOR D/C dd2 TRANSPORT. WILL CALL US BACK WITH ETA. Vital Signs: 15:44 BP 155 / 70; Pulse 65; Resp 16; Temp 98.3; Pulse Ox 100% ; db 16:51 BP 144 / 69; Pulse 65; Resp 18; Pulse Ox 100% on R/A; kn 19:47 BP 141 / 68; Pulse 65; Resp 18; Pulse Ox 100% ; cp4 Nickolas Coma Score: 18:00 Eye Response: spontaneous(4). Motor Response: obeys commands(6). Verbal Response: db confused(4). Total: 14. Trauma Score (Adult): 18:00 Eye Response: spontaneous(1); Verbal Response: confused(1); Motor Response: obeys db commands(2); Systolic BP: > 89 mm Hg(4); Respiratory Rate: 10 to 29 per min(4); Vilas Score: 14; Trauma Score: 12 ED Course: 15:39 Patient arrived in ED. db 15:42 Lila Ji, RN is Primary Nurse. db 15:44 Arm band placed on Patient placed in an exam room. db 15:56 Triage completed. db 16:25 Jac Tello PA is PHCP. cp 16:25 Jac Ramos MD is Attending Physician. cp 16:49 Initial lab(s) drawn, by me, sent to lab. Inserted saline lock: 22 gauge in left em1 forearm, using aseptic technique. Blood collected. Flushed with 10 mL NS. 16:49 CBC with Diff Sent. em1 16:49 CMP Sent. em1 16:49 Lipase Sent. em1 17:29 Bed in low position. Call light in reach. Side rails up X2. db 17:29 Patient maintains SpO2 saturation greater than 95% on room air. db 17:31 XRAY Chest (1 view) In Process Unspecified. EDMS 18:02 Urine collected: straight cath specimen, clear. Straight cath inserted, using sterile jl7 technique, 14 Fr. Specimen obtained. Returned clear yellow urine. Patient tolerated well. 19:17 CT Head C Spine In Process Unspecified. EDMS 19:17 CT Abd/Pelvis - IV Contrast Only In Process Unspecified. EDMS 20:52 LATESHA JOHNSON, RN is Primary Nurse. dd2 21:38 Elsie from [facility] called and advised they called [facility] ETA for pick vk up will be 1 hour - 1 2 from 2140. Administered Medications: No medications were administered Medication: 18:00 VIS not applicable for this client. db Outcome: 19:47 Discharge ordered by . cp 23:02 Patient left the ED. ha1 Signatures: Dispatcher [employer] EDMS Toni Gustafson em1 Jac Tello PA PA cp Leal, Jahala RN RN jl7 Lilly Sheehan RN RN ha1 Lila Ji, RN RN Genia Salazar cp4 Dotty Walsh KARLENE, RN RN kn DAVIS, DIANA, RN RN dd2
--- NOTE | 2024-11-21 19:47 | EDPHYS ---
Physician Documentation [facility] Name: Donaldo English Age: 69 yrs Sex: Male : 1955 Arrival Date: 11/21/2024 Time: 15:37 Bed 5 Private MD: ED Physician Jac Ramos HPI: 11/21 16:33 This 69 yrs old Male presents to ER via EMS with complaints of Fall Injury. cp 16:33 Details of fall: The patient fell from an upright position, while standing. Onset: The cp symptoms/episode began/occurred today. Associated injuries: The patient sustained injury to the head, contusion, after striking head against dresser. Severity of symptoms: in the emergency department the symptoms headache and abdominal pain. Patient denies vomiting, diarrhea and constipation. Historical: - Allergies: 15:56 No Known Allergies; db - PMHx: 15:56 Cerebrovascular accident; coronary atherosclerosis; depressive disorder; diabetes db mellitus; Hypertensive disorder; Hypothyroidism; dysphasia (Speech disturbances); Dementia; schizoaffective disorder; Speech disturbances; Right sided weakness; Seizure; - PSHx: 15:56 Quadruple bipass; right foot (d); db - Immunization history:: Adult Immunizations unknown. - Infectious Disease History:: Denies. - Immunization history: Last tetanus immunization: unknown. - Social history:: Smoking status: Patient denies any tobacco usage or history of. ROS: 16:40 Constitutional: Negative for body aches, chills, fever, poor PO intake, cp 16:40 Eyes: Negative for injury, pain, redness, and discharge, cp 16:40 ENT: Negative for drainage from ear(s), ear pain, sore throat, difficulty swallowing, difficulty handling secretions, 16:40 Cardiovascular: Negative for chest pain, 16:40 Respiratory: Negative for cough, shortness of breath, wheezing, 16:40 Abdomen/GI: Positive for abdominal pain, abdominal distension, Negative for nausea, vomiting, and diarrhea, constipation, 16:40 Back: Negative for pain at rest, pain with movement, 16:40 : Negative for urinary symptoms, testicular pain 16:40 Neuro: Positive for headache, Negative for altered mental status, dizziness, loss of consciousness, syncope, near syncope, weakness, 16:40 All other systems are negative, Exam: 16:45 Constitutional: The patient appears in no acute distress, alert, awake, cp non-diaphoretic, non-toxic, well developed, well nourished, 16:45 Head/face: Noted is tenderness, that is mild, of the left side of the back of head, cp left occipital area, right side of the back of head and right occipital area, 16:45 Eyes: Periorbital structures: appear normal, Pupils: equal, round, and reactive to light and accomodation, Conjunctiva: normal, no exudate, no injection, Sclera: no appreciated abnormality, Lids and lashes: appear normal, bilaterally, 16:45 ENT: External ear(s): are unremarkable, Nose: is normal, Mouth: Lips: moist, Oral mucosa: moist, Posterior pharynx: Airway: no evidence of obstruction, patent, 16:45 Neck: C-spine: vertebral tenderness, is not appreciated, crepitus, is not appreciated, 16:45 Chest/axilla: Inspection: normal, Palpation: is normal, no crepitus, no tenderness, 16:45 Cardiovascular: Rate: normal, Rhythm: regular, Edema: is not appreciated, JVD: is not appreciated, 16:45 Respiratory: the patient does not display signs of respiratory distress, Respirations: normal, no use of accessory muscles, no retractions, labored breathing, is not present, Breath sounds: are clear throughout, no decreased breath sounds, no stridor, no wheezing, 16:45 Abdomen/GI: Inspection: obese Bowel sounds: active, all quadrants, Palpation: soft, in all quadrants, mild abdominal tenderness, in the right upper quadrant and left upper quadrant and mid abdomen, rebound tenderness, is not appreciated, 16:45 Back: pain, is absent, 16:45 Neuro: Orientation: to person, place, situation, Mentation: able to follow commands, Vital Signs: 15:44 BP 155 / 70; Pulse 65; Resp 16; Temp 98.3; Pulse Ox 100% ; db 16:51 BP 144 / 69; Pulse 65; Resp 18; Pulse Ox 100% on R/A; kn 19:47 BP 141 / 68; Pulse 65; Resp 18; Pulse Ox 100% ; cp4 Nickolas Coma Score: 18:00 Eye Response: spontaneous(4). Motor Response: obeys commands(6). Verbal Response: db confused(4). Total: 14. Trauma Score (Adult): 18:00 Eye Response: spontaneous(1); Verbal Response: confused(1); Motor Response: obeys db commands(2); Systolic BP: > 89 mm Hg(4); Respiratory Rate: 10 to 29 per min(4); Nickolas Score: 14; Trauma Score: 12 MDM: 16:25 Medical Screening Exam initiated cp 19:46 Data reviewed: vital signs, nurses notes, lab test result(s), radiologic studies, CT cp scan, and as a result, I will discharge patient. 19:46 Differential diagnosis: closed head injury, contusion, fracture, multiple trauma, bowel cp obstruction, ileus. Care significantly affected by the following chronic conditions: Diabetes, Hypertension. Counseling: I had a detailed discussion with the patient and/or guardian regarding the historical points, exam findings, and any diagnostic results supporting the discharge/admit diagnosis, lab results, radiology results, to return to the emergency department if symptoms worsen or persist or if there are any questions or concerns that arise at home. Special discussion: Based on the patient's history, exam and DX evaluation, there is no indication for emergent intervention or inpatient TX. It is understood by the patient/guardian that if the SXs persist or worsen they need to return immediately for re-evaluation. 03 16:29 Order name: CBC with Diff 11/21 19:42 Interpretation: Normal except: RBC 4.25; HGB 11.7; HCT 35.3; RDW 22.0; LYM% 14.4. 11/21 16:29 Order name: CMP; Complete Time: 19:42 03 19:42 Interpretation: Normal except: GLUC 238; ALB 3.0; GLOB 3.9; A/G 0.8; AST < 10. 11/21 16:29 Order name: Lipase; Complete Time: 19:42 03 16:29 Order name: Urinalysis w/ reflexes; Complete Time: 19:42 03 19:42 Interpretation: Normal except: UGLUC 4+ (Over). 11/21 17:25 Order name: CBC Smear Scan EDWY 03 16:29 Order name: CT Head C Spine; Complete Time: 19:42 03 19:43 Interpretation: Reviewed report. 11/21 16:29 Order name: CT Abd/Pelvis - IV Contrast Only; Complete Time: 19:42 cp 11/21 19:45 Interpretation: Report reviewed. cp 11/21 16:29 Order name: XRAY Chest (1 view); Complete Time: 19:42 cp 11/21 16:29 Order name: IV Saline Lock; Complete Time: 16:47 cp 11/21 16:29 Order name: Labs collected and sent; Complete Time: 16:47 cp Administered Medications: No medications were administered Disposition: 11/22 09:45 Chart complete. cp Disposition Summary: 11/21/24 19:47 Discharge Ordered Notes: Location: Home cp Problem: new cp Symptoms: have improved cp Condition: Stable cp Diagnosis - Acute post-traumatic headache cp - Abdominal pain, unspecified cp - History of falling cp Followup: cp - With: Private Physician - When: 2 - 3 days - Reason: Recheck today's complaints Discharge Instructions: - Discharge Summary Sheet cp - Abdominal Pain, Adult cp - Contusion cp - Fall Prevention in Hospitals, Adult cp Forms: - Medication Reconciliation Form cp - Antibiotic Education cp - Prescription Opioid Use cp - Patient Portal Instructions cp - Leadership Thank You Letter cp Signatures: Dispatcher [employer] EDWY Jac Tello PA PA cp Benton, Danielle, RN RN db
[2024-11-21 19:50] LABS: Anisocytosis 1+; Blood Morphology Comment NOTED (NOT SEEN); Platelet Estimate ADEQ; Polychromasia 1+; White Blood Cell Scan OK (OK)
[2024-11-21 23:06] VITALS: TEMP 98.3; O2SAT 100
[2024-11-21 23:08] VITALS: BP 141/68
== END 2024-11-21 23:02 | disposition home or self-care (01) ==
LOC: ER 15:37
DX: G44.319 Acute post-traumatic headache, not intractable (principal); R10.9 Unspecified abdominal pain; Z91.81 History of falling; Z95.1 Presence of aortocoronary bypass graft
CPT/HCPCS: 85025; 81001; 36415; 83690; 80053; 70450; 72125; 74177; 71045; 51702; 99284; Q9967

== ENCOUNTER 2024-11-24 14:14 | Emergency (ER) | payer OTHER ==
[2024-11-24 15:07] LABS: Absolute Eosinophils 0.3 K/uL (0-0.5); Absolute Lymphocytes (CBC) 0.5 K/uL (0.7-4.9); Absolute Monocytes 0.8 K/uL (0.1-1.3); Absolute Neutrophil 8.7 K/uL (1.8-8.0); Basophils % 0.5 % (0-1.3); Eosinophils % 2.4 % (0-4.4); Hematocrit 32.8 % (39.6-49.0); Hemoglobin 10.8 g/dL (13.6-17.9); MCH 27.9 pg (27.0-35.0); MCHC 32.9 g/dL (32.0-36.0); MCV 84.9 fL (80-100); Neutrophils % 84.1 % (41.7-73.7); Platelets 250 thou/uL (152-406); RBC Red Blood Cell Count 3.87 M/uL (4.33-5.43); Red Cell Distribution Width 22.1 % (12.1-15.2)
[2024-11-24 15:34] LABS: Anion Gap 8.6 mEq/L (5.0-15.0); Troponin High Sensitivity 5.8 pg/mL (<58.9)
[2024-11-24 15:35] LABS: Potassium 4.6 mEq/L (3.5-5.1)
--- NOTE | 2024-11-24 16:32 | RAD REPORT ---
EXAMINATION: ONE VIEW CHEST XR CLINICAL INDICATION: CHEST PAIN TECHNIQUE: Frontal chest projection is submitted. Examination is limited by patient positioning and t echnique. COMPARISON: 11/21/2024 FINDINGS: The lungs are well inflated and clear. The heart is upper limit of normal in size. No displaced fract ures identified. Sternotomy wires present. IMPRESSION: No acute intrathoracic abnormalities.
--- NOTE | 2024-11-24 16:51 | ER ---
Nurse's Notes [facility] Name: Donaldo English Age: 69 yrs Sex: Male : 1955 Arrival Date: 11/24/2024 Time: 14:14 Bed 6 Private MD: Diagnosis: Hypoxemia Presentation: 11/24 14:41 Chief complaint: EMS states: toned out to [facility] for low O2 of 56% RA. Low ld1 blood pressure and SpO2 upon arrival to ER. Coronavirus screen: At this time, the client does not indicate any symptoms associated with coronavirus-19. Ebola Screen: No symptoms or risks identified at this time. Initial Sepsis Screen:. Initial Sepsis Screen: Does the patient meet any 2 criteria? No. Patient's initial sepsis screen is negative. Does the patient have a suspected source of infection? No. Patient's initial sepsis screen is negative. Risk Assessment: Do you want to hurt yourself or someone else? Patient reports no desire to harm self or others. Onset of symptoms was November 24, 2024. 14:41 Method Of Arrival: EMS: [facility] ld1 14:41 Acuity: LILIANA 3 ld1 Triage Assessment: 14:47 General: Appears in no apparent distress. comfortable, Behavior is calm, cooperative, ld1 appropriate for age. Pain: Denies pain. EENT: No signs and/or symptoms were reported regarding the EENT system. Neuro: Level of Consciousness is awake, Oriented to person. Cardiovascular: Capillary refill < 3 seconds Patient's skin is warm and dry. Respiratory: Reports Airway is patent Respiratory effort is even, unlabored. GI: Abdomen is flat, non-distended. : No signs and/or symptoms were reported regarding the genitourinary system. Derm: No signs and/or symptoms reported regarding the dermatologic system. Musculoskeletal: No signs and/or symptoms reported regarding the musculoskeletal system. Historical: - Allergies: 14:43 No Known Allergies; ld1 - PMHx: 14:43 Cerebrovascular accident; coronary atherosclerosis; Dementia; depressive disorder; ld1 diabetes mellitus; dysphasia (Speech disturbances); Hypertensive disorder; Hypothyroidism; Right sided weakness; schizoaffective disorder; Seizure; Speech disturbances; - PSHx: 14:43 Quadruple bipass; right foot; ld1 - Immunization history:: Adult Immunizations up to date. - Infectious Disease History:: Denies. - Social history:: Smoking status: Patient denies any tobacco usage or history of. Screenin:57 [facility] ED Fall Risk Assessment (Adult) History of falling in the last 3 months, id including since admission No falls in past 3 months (0 pts) Confusion or Disorientation No (0 pts) Intoxicated or Sedated No (0 pts) Impaired Gait No (0 pts) Mobility Assist Device Used No (0 pt) Altered Elimination No (0 pt) Score/Fall Risk Level 0 - 2 = Low Risk Oriented to surroundings, Hourly rounding (assess needs \T\ fall precautionary measures) done. Abuse screen: Denies threats or abuse. Denies injuries from another. Nutritional screening: No deficits noted. Tuberculosis screening: No symptoms or risk factors identified. Assessment: 16:00 Reassessment: See triage assessment. General: Appears in no apparent distress. Behavior id is calm. Neuro: Level of Consciousness is awake, confused, Oriented to none. Cardiovascular: Capillary refill < 3 seconds Patient's skin is warm and dry. Rhythm is sinus rhythm. Respiratory: Airway is patent Respiratory effort is even, unlabored, Breath sounds are clear bilaterally. 16:57 Reassessment: Patient appears in no apparent distress at this time. No changes from id previously documented assessment. Patient and/or family updated on plan of care and expected duration. Pain level reassessed. 17:43 Reassessment: Report given to KATIE Hagan and she is setting up transportation. me1 Vital Signs: 14:41 BP 98 / 66; Pulse 103; Resp 18; Pulse Ox 100% on R/A; Pain 0/10; ld1 14:45 Temp 97.8; Weight 86.64 kg; ld1 14:45 Height 5 ft. 8 in. ; ld1 15:00 BP 104 / 66; Pulse 98; Resp 18; Pulse Ox 100% ; me1 16:00 BP 139 / 76; Pulse 100; Resp 17; Pulse Ox 100% ; me1 16:57 BP 124 / 59; Pulse 106; Resp 18; Pulse Ox 100% on R/A; me1 18:00 BP 129 / 62; Pulse 98; Resp 16; Temp 98.4; Pulse Ox 100% ; me1 14:41 Pain Scale: Adult ld1 ED Course: 14:40 Patient arrived in ED. ld1 14:42 Williams Barron MD is Attending Physician. corina 14:43 Triage completed. ld1 14:47 Arm band placed on right wrist. ld1 14:57 Maintain EMS IV. Dressing intact. Good blood return noted. Site clean \T\ dry. Gauge \T\ 6 site: 20 \T\ RFA. Flushed with 10 mL NS. 14:58 Initial lab(s) drawn, by va, sent to lab. EKG done, by ED staff, reviewed by Williams Barron MD. 15:20 Chio Hernandez, RN is Primary Nurse. me1 16:24 XRAY Chest (1 view) In Process Unspecified. EDMS 16:57 Patient has correct armband on for positive identification. Placed in gown. Bed in low id position. Call light in reach. Side rails up X2. pvc monitor on. Pulse ox on. NIBP on. Door closed. Noise minimized. Warm blanket given. 16:57 No provider procedures requiring assistance completed. id 18:46 Provided Education on: POC. Verbalized understanding.. me1 18:46 IV discontinued, intact, bleeding controlled, No redness/swelling at site. Pressure me1 dressing applied. Administered Medications: No medications were administered Medication: 16:57 VIS not applicable for this client. id Outcome: 16:50 Discharge ordered by . corina 18:46 Discharged to [facility]. Report called to Danya me1 18:46 Condition: stable 18:46 Instructed on discharge instructions, follow up and referral plans. 18:47 Patient left the ED. me1 Signatures: Dispatcher [employer] [facility] Nicki Lockhart, RN RN ld1 Jo Moore Michelle, RN RN me1 Williams Barron MD MD [email or web address] David, Isabel Marcelina, RN RN id Corrections: (The following items were deleted from the chart) 16:56 14:41 Chief complaint: EMS states: toned out to [facility] for low O2 of 56% RA. me1 Low blood pressure and SpO2 upon arrival to ER. ld1 17:43 16:57 BP 139 / 76; Pulse 106bpm; Resp 18bpm; Pulse Ox 100% RA; id me1
--- NOTE | 2024-11-24 16:51 | EDPHYS ---
Physician Documentation [facility] Name: Donaldo English Age: 69 yrs Sex: Male : 1955 Arrival Date: 11/24/2024 Time: 14:14 Bed 6 Private MD: ED Physician Williams Barron HPI: 11/24 16:10 69-year-old man comes to the emergency department via EMS for evaluation of low oxygen jj9 saturation at the detention. History is by EMS, patient history of dementia, CVA with residual aphasia, peripheral vascular disease, type 2 diabetes. Upon arrival oxygen is normal at room air. There is no distress.. Historical: - Allergies: 14:43 No Known Allergies; ld1 - PMHx: 14:43 Cerebrovascular accident; coronary atherosclerosis; Dementia; depressive disorder; ld1 diabetes mellitus; dysphasia (Speech disturbances); Hypertensive disorder; Hypothyroidism; Right sided weakness; schizoaffective disorder; Seizure; Speech disturbances; - PSHx: 14:43 Quadruple bipass; right foot; ld1 - Immunization history:: Adult Immunizations up to date. - Infectious Disease History:: Denies. - Social history:: Smoking status: Patient denies any tobacco usage or history of. ROS: 16:13 Unable to obtain ROS due to baseline dementia, jj9 Exam: 16:14 Constitutional: This is a well developed, well nourished patient who is awake, alert, jj9 and in no acute distress. Head/Face: Normocephalic, atraumatic. Eyes: Pupils equal round and reactive to light, extra-ocular motions intact. Lids and lashes normal. Conjunctiva and sclera are non-icteric and not injected. Cornea within normal limits. Periorbital areas with no swelling, redness, or edema. ENT: Nares patent. No nasal discharge, no septal abnormalities noted. Tympanic membranes are normal and external auditory canals are clear. Oropharynx with no redness, swelling, or masses, exudates, or evidence of obstruction, uvula midline. Mucous membranes moist. Neck: Trachea midline, no thyromegaly or masses palpated, and no cervical lymphadenopathy. Supple, full range of motion without nuchal rigidity, or vertebral point tenderness. No Meningismus. Chest/axilla: Normal chest wall appearance and motion. Nontender with no deformity. No lesions are appreciated. Cardiovascular: Regular rate and rhythm with a normal S1 and S2. No gallops, murmurs, or rubs. Normal PMI, no JVD. No pulse deficits. Respiratory: Lungs have equal breath sounds bilaterally, clear to auscultation and percussion. No rales, rhonchi or wheezes noted. No increased work of breathing, no retractions or nasal flaring. Abdomen/GI: Soft, non-tender, with normal bowel sounds. No distension or tympany. No guarding or rebound. No evidence of tenderness throughout. Back: No spinal tenderness. No costovertebral tenderness. Full range of motion. Male : Normal genitalia with no discharge or lesions. Skin: Warm, dry with normal turgor. Normal color with no rashes, no lesions, and no evidence of cellulitis. MS/ Extremity: Pulses equal, no cyanosis. Neurovascular intact. Full, normal range of motion. Neuro: at baseline 16:47 Cardiovascular: Normal sinus rhythm rate of [address]-T changes, normal EKG., jj9 Vital Signs: 14:41 BP 98 / 66; Pulse 103; Resp 18; Pulse Ox 100% on R/A; Pain 0/10; ld1 14:45 Temp 97.8; Weight 86.64 kg; ld1 14:45 Height 5 ft. 8 in. ; ld1 15:00 BP 104 / 66; Pulse 98; Resp 18; Pulse Ox 100% ; me1 16:00 BP 139 / 76; Pulse 100; Resp 17; Pulse Ox 100% ; me1 16:57 BP 124 / 59; Pulse 106; Resp 18; Pulse Ox 100% on R/A; me1 18:00 BP 129 / 62; Pulse 98; Resp 16; Temp 98.4; Pulse Ox 100% ; me1 14:41 Pain Scale: Adult ld1 MDM: 14:42 Medical Screening Exam initiated jj9 16:47 Differential diagnosis: Anemia Anxiety Reaction asthma, Bronchitis CHF exacerbation, jj9 Chronic Obstructive Pulmonary Disease Myocardial Infarction pneumonia, Pneumothorax. 16:48 Data reviewed: vital signs, nurses notes, EMS record, old medical records, last visit jj9 lab test result(s), EKG, radiologic studies, plain films. Care significantly affected by the following chronic conditions: Diabetes, Hypertension. ED course: 61-year-old man comes emergency department for evaluation of hypoxemia while at the detention. The patient is at baseline with expressive aphasia following a CVA. He denies chest pain, shortness of breath or any other problem. The patient is able to answer by yes or no questioning. O2 saturation 100% since arrival on room air. He denies chest pain, SOB, abdominal pain or any other problems. Daughter are at bedside workup reviewed and unremarkable with normal troponins, no evidence of intrathoracic abnormality, EKG nonacute. The patient appears in no distress and would like to go back to the detention. Will discharge the patient home advised to continue her medications and return to the emergency department worsening of symptoms or of any department. The daughter and the patient understand and agree with the plan.. 11/24 14:57 Order name: Basic Metabolic Panel; Complete Time: 16:15 bc6 11/24 14:57 Order name: CBC with Diff bc 11/24 14:57 Order name: Troponin HS; Complete Time: 16:15 bc6 11/24 18:22 Order name: CBC Smear Scan EDME 11/24 14:57 Order name: XRAY Chest (1 view); Complete Time: 16:39 bc6 11/24 14:57 Order name: EKG; Complete Time: 14:57 bc6 11/24 14:57 Order name: Cardiac monitoring; Complete Time: 14:57 bc6 11/24 14:57 Order name: EKG - Nurse/Tech; Complete Time: 14:57 bc6 11/24 14:57 Order name: IV Saline Lock; Complete Time: 14:57 bc6 11/24 14:57 Order name: Labs collected and sent; Complete Time: 14:57 bc6 11/24 14:57 Order name: O2 Per Protocol; Complete Time: 14:57 bc6 11/24 14:57 Order name: O2 Sat Monitoring; Complete Time: 14:57 bc6 Administered Medications: No medications were administered Disposition Summary: 11/24/24 16:50 Discharge Ordered Notes: Location: Home jj9 Problem: new jj9 Symptoms: are resolved jj9 Condition: Stable jj9 Diagnosis - Hypoxemia jj9 Followup: jj9 - With: Private Physician - When: - Reason: Re-evaluation by your physician Discharge Instructions: - Discharge Summary Sheet jj9 - Hypoxemia jj9 Forms: - Medication Reconciliation Form jj9 - Antibiotic Education jj9 - Prescription Opioid Use jj9 - Patient Portal Instructions jj9 - Leadership Thank You Letter jj9 Signatures: Dispatcher [employer] Nicki Gonzalez, RN RN ld1 Jo Moore 6 Williams Barron MD MD jj9 Corrections: (The following items were deleted from the chart) 16:39 16:39 No acute disease. jj9 jj9 16:54 16:48 ED course: 61-year-old man comes emergency department for evaluation of hypoxemia jj9 while at the detention. The patient is at baseline with expressive aphasia following a CVA. He denies chest pain, shortness of breath or any other problem. The patient is able to answer by yes or no questioning. Daughter is at bedside workup reviewed and unremarkable with normal troponins, no evidence of intrathoracic abnormality, EKG nonacute. The patient appears in no distress and would like to go back to the detention. Will discharge the patient home advised to continue her medications and return to the emergency department worsening of symptoms or of any department. The daughter and the patient understand and agree with the plan.. jj9
[2024-11-24 18:21] LABS: Platelet Estimate ADEQ; White Blood Cell Scan OK (OK)
[2024-11-24 18:22] LABS: Anisocytosis 2+; Blood Morphology Comment NOTED (NOT SEEN); Poikilocytosis 2+
[2024-11-24 19:07] VITALS: O2SAT 100
[2024-11-24 19:12] VITALS: BP 129/62; TEMP 98.4
--- NOTE | 2024-11-27 14:52 | EKG ---
Test Date: 2024-11-24 Test Time: 14:46:12 Watch Assembly Inspector: RUMILA MEASUREMENT RESULTS: Intervals: Rate: 99 OK: 168 QRSD: 74 QT: 344 QTc: 441 [place]: P: 52 OK: 168 QRS: 19 T: 9 INTERPRETIVE STATEMENTS: Normal sinus rhythm Normal ECG Compared to ECG 10/10/2024 21:06:48 Myocardial infarct finding no longer present Electronically Signed On 11-27-24 14:43:53 CDT by Faustino Hernández
== END 2024-11-24 18:47 | disposition home or self-care (01) ==
LOC: ER 14:14
DX: R09.02 Hypoxemia (principal); I10 Essential (primary) hypertension; E11.9 Type 2 diabetes mellitus without complications; Z95.1 Presence of aortocoronary bypass graft; Z86.73 Personal history of transient ischemic attack (TIA), and cerebral infarction without residual deficits
CPT/HCPCS: 36415; 71045; 80048; 84484; 85025; 93005; 99284

== ENCOUNTER 2024-12-07 10:52 | Emergency (ER) | payer OTHER ==
--- NOTE | 2024-12-07 11:35 | RAD REPORT ---
EXAMINATION: CT ABDOMEN AND PELVIS WITHOUT CONTRAST CLINICAL INDICATION: Abdominal pain TECHNIQUE: CT abdomen and pelvis was performed, as per department protocol. IV contrast and oral was not administered.Axial, sagittal and coronal reconstructions were obtained. One or more of the following dose reduction techniques were used: Automated exposure control, adjustment of the mA and/o r kV according to the patient size, and/or iterative reconstruction. Unless otherwise specified, incidental findings do not require dedicated imaging follow-up. [id number]. COMPARISON: November 21, 2024 FINDINGS: The lack of intravenous and oral contrast limits evaluation of solid organs, vessels and bowel. Sigmoid colon 13 cm. Transverse colon 12.5 cm. Remainder of the colon is dilated but to a lesser extent. No free air. Multiple gallstones. The gallbladder wall is not thickened. The liver, spleen, pancreas, adrenals and kidneys appear grossly normal No evidence of diverticulitis Small inguinal hernias containing fat. Mild prostatic enlargement. IMPRESSION: Chronic colonic pseudoobstruction. Sigmoid colon 13 cm. Transverse colon 12.5 cm
[2024-12-07 11:50] LABS: Absolute Basophils 0.1 K/uL (0-0.5); Absolute Eosinophils 0.1 K/uL (0-0.5); Absolute Lymphocytes (CBC) 0.7 K/uL (0.7-4.9); Absolute Monocytes 1.2 K/uL (0.1-1.3); Absolute Neutrophil 7.3 K/uL (1.8-8.0); Hematocrit 34.3 % (39.6-49.0); Hemoglobin 11.4 g/dL (13.6-17.9); Lymphocytes % 7.8 % (15.3-44.8); MCH 27.5 pg (27.0-35.0); MCHC 33.2 g/dL (32.0-36.0); MCV 82.8 fL (80-100); MPV 8.1 fL (7.6-11.3); Monocytes % 12.4 % (3.3-12.3); Neutrophils % 77.8 % (41.7-73.7); Platelets 203 thou/uL (152-406); RBC Red Blood Cell Count 4.14 M/uL (4.33-5.43); Red Cell Distribution Width 19.6 % (12.1-15.2)
--- NOTE | 2024-12-07 11:59 | ER ---
Nurse's Notes [facility] Name: Donaldo English Age: 69 yrs Sex: Male : 1955 Arrival Date: 12/07/2024 Time: 10:52 Bed 18 Private MD: Diagnosis: Abdominal distension (gaseous) Presentation: 12/07 10:55 Chief complaint: EMS states: Pt from [place], sent to ED for abdominal pain and ph distention, abdomen usually distended but today it looked more distended than usual. Coronavirus screen: Vaccine status: Patient reports receiving the 2nd dose of the covid vaccine. Ebola Screen: No symptoms or risks identified at this time. Initial Sepsis Screen: Does the patient meet any 2 criteria? No. Patient's initial sepsis screen is negative. Does the patient have a suspected source of infection? No. Patient's initial sepsis screen is negative. Risk Assessment: Do you want to hurt yourself or someone else? Patient reports no desire to harm self or others. 10:55 Method Of Arrival: EMS: [facility] ph 10:55 Acuity: LILIANA 3 ph 10:58 Onset of symptoms was December 07, 2024. ph Historical: - Allergies: 10:58 No Known Allergies; ph - PMHx: 10:58 Cerebrovascular accident; coronary atherosclerosis; Dementia; depressive disorder; ph diabetes mellitus; dysphasia (Speech disturbances); Hypertensive disorder; Hypothyroidism; Right sided weakness; schizoaffective disorder; Seizure; Speech disturbances; - PSHx: 10:58 Quadruple bipass; right foot; ph - Immunization history:: Adult Immunizations unknown. - Infectious Disease History:: Denies. - Social history:: Smoking status: unknown. Screenin:18 [facility] ED Fall Risk Assessment (Adult) History of falling in the last 3 months, kc6 including since admission No falls in past 3 months (0 pts) Confusion or Disorientation Yes (5 pts) Intoxicated or Sedated No (0 pts) Impaired Gait Yes (1 pt) Mobility Assist Device Used Yes (1 pt) Altered Elimination No (0 pt) Score/Fall Risk Level 3 or more points = High Risk Oriented to surroundings, Maintained a safe environment, Educated pt \T\ family on fall prevention, incl call for assistance when getting out of bed. Abuse screen: Denies threats or abuse. Denies injuries from another. Nutritional screening: No deficits noted. Tuberculosis screening: No symptoms or risk factors identified. Assessment: 12:12 General: Appears in no apparent distress. comfortable, well groomed, well developed, kc6 Behavior is calm, cooperative, appropriate for age. Pain: Complains of pain in abdomen. Neuro: Level of Consciousness is awake, alert, obeys commands, confused, Oriented to person, situation, Appropriate for age. Cardiovascular: Capillary refill < 3 seconds. Respiratory: Airway is patent Trachea midline Respiratory effort is even, unlabored, Respiratory pattern is regular, symmetrical. GI: Abdomen is round distended, Bowel sounds present X 4 quads. Patient currently denies diarrhea, nausea, vomiting. : No signs and/or symptoms were reported regarding the genitourinary system. EENT: No signs and/or symptoms were reported regarding the EENT system. Derm: No signs and/or symptoms reported regarding the dermatologic system. Skin is intact, is healthy with good turgor, Skin is pink, warm \T\ dry. Musculoskeletal: No signs and/or symptoms reported regarding the musculoskeletal system. Circulation, motion, and sensation intact. Range of motion: intact in all extremities. 12:13 Reassessment: NURSE TO NURSE REPORT GIVEN TO CARMEL. THEY WILL CALL BACK WITH AN ETA.kc6 12:50 Reassessment: Patient appears in no apparent distress at this time. EMS arrived to [facility] transport. GI: Abd is non tender. Vital Signs: 11:17 BP 132 / 80; Pulse 72; Resp 16 S; Temp 98(O); Pulse Ox 100% on R/A; Weight 81.65 kg kc6 (M); Height 5 ft. 8 in. (R); 12:45 BP 130 / 78; Pulse 80; Resp 18; Temp 97.9; Pulse Ox 100% ; kj2 11:17 Body Mass Index 27.37 (81.65 kg, 172.72 cm) kc6 ED Course: 10:55 Patient arrived in ED. ph 10:58 Triage completed. ph 10:59 Arm band placed on Patient placed in an exam room, on a stretcher. ph 11:02 Alex Granger MD is Attending Physician. ec2 11:11 Abbi Iraheta RN is Primary Nurse. 6 11:17 Patient has correct armband on for positive identification. Placed in gown. Bed in low kc6 position. Call light in reach. Side rails up X2. Pulse ox on. NIBP on. Door closed. Noise minimized. Lights dimmed. Warm blanket given. Pillow given. Verbal reassurance given. 11:18 Patient maintains SpO2 saturation greater than 95% on room air. kc6 11:28 CT Abd/Pelvis - Without Contrast In Process Unspecified. EDMS 11:50 CBC with Diff Sent. kc6 12:51 No provider procedures requiring assistance completed. iw Administered Medications: No medications were administered Outcome: 11:58 Discharge ordered by . [email or web address] 12:51 Discharged to intermediate. iw 12:51 Condition: good 12:51 Discharge instructions given to patient, Instructed on discharge instructions, follow up and referral plans. Demonstrated understanding of instructions, follow-up care, 12:51 Patient left the ED. iw Signatures: Dispatcher [employer] Judy Thomas, RN RN iw Belen Mcghee RN RN Abbi Scott RN RN kc6 Alex Granger MD MD ec2 Savi Kirby RN RN kj2
--- NOTE | 2024-12-07 11:59 | EDPHYS ---
Physician Documentation [facility] Name: Donaldo English Age: 69 yrs Sex: Male : 1955 Arrival Date: 12/07/2024 Time: 10:52 Bed 18 Private MD: ED Physician Alex Granger HPI: 12/07 11:13 This 69 yrs old Male presents to ER via EMS with complaints of Abdominal ec2 Distention, Abdominal Pain. 11:13 Patient arrives today for evaluation of abdominal pain. Patient reports that has been ec2 experiencing some abdominal distention. Patient comes from residential. [facility] reports that distention is possibly worse.. Historical: - Allergies: 10:58 No Known Allergies; ph - PMHx: 10:58 Cerebrovascular accident; coronary atherosclerosis; Dementia; depressive disorder; ph diabetes mellitus; dysphasia (Speech disturbances); Hypertensive disorder; Hypothyroidism; Right sided weakness; schizoaffective disorder; Seizure; Speech disturbances; - PSHx: 10:58 Quadruple bipass; right foot; ph - Immunization history:: Adult Immunizations unknown. - Infectious Disease History:: Denies. - Social history:: Smoking status: unknown. ROS: 11:14 Constitutional: as per hpi ec2 Exam: 11:14 Constitutional: GEN: NAD Head: atraumatic Eyes: EOMI Ears: External ears are ec2 normal. CV: regular rate LUNGS: no respiratory distress ABD: Abdominal distention noted SKIN: no evidence of rashes MSK: no evidence of trauma Vital Signs: 11:17 BP 132 / 80; Pulse 72; Resp 16 S; Temp 98(O); Pulse Ox 100% on R/A; Weight 81.65 kg kc6 (M); Height 5 ft. 8 in. (R); 12:45 BP 130 / 78; Pulse 80; Resp 18; Temp 97.9; Pulse Ox 100% ; kj2 11:17 Body Mass Index 27.37 (81.65 kg, 172.72 cm) kc6 MDM: 11:02 Medical Screening Exam initiated ec2 11:14 Data reviewed: vital signs, nurses notes. ED course: Patient arrives today for ec2 evaluation of worsening abdominal distention. Examination yields abdominal findings as above. Will obtain lab work and CT imaging. DDx includes SBO, ileus, constipation. 11:58 ED course: CT imaging shows chronic findings. Will discharge home. Return precautions ec2 given.. 12/07 11:10 Order name: CBC with Diff; Complete Time: 11:54 ec2 12/07 11:10 Order name: CT Abd/Pelvis - Without Contrast; Complete Time: 11:42 ec2 12/07 11:10 Order name: IV; Complete Time: 12:54 ec2 Administered Medications: No medications were administered Disposition Summary: 12/07/24 11:58 Discharge Ordered Notes: Location: Home ec2 Condition: Stable ec2 Diagnosis - Abdominal distension (gaseous) ec2 Followup: ec2 - With: Private Physician - When: - Reason: Re-evaluation by your physician Forms: - Medication Reconciliation Form ec2 - Antibiotic Education ec2 - Prescription Opioid Use ec2 - Patient Portal Instructions ec2 - Leadership Thank You Letter ec2 Signatures: Dispatcher [employer] Belen Ruelas RN RN Alex Mathew MD MD ec2
[2024-12-07 12:55] VITALS: BP 132/80; TEMP 98; O2SAT 100
== END 2024-12-07 12:51 | disposition home or self-care (01) ==
LOC: ER 10:52
DX: R14.0 Abdominal distension (gaseous) (principal)
CPT/HCPCS: 36415; 74176; 85025; 99284

== ENCOUNTER 2024-12-08 18:35 | Inpatient (IN) | payer OTHER, MEDICAID ==
[2024-12-08 19:35] LABS: Absolute Basophils 0.1 K/uL (0-0.5); Absolute Eosinophils 0.1 K/uL (0-0.5); Absolute Monocytes 0.8 K/uL (0.1-1.3); Absolute Neutrophil 6.3 K/uL (1.8-8.0); Basophils % 0.8 % (0-1.3); Eosinophils % 0.7 % (0-4.4); Hematocrit 33.5 % (39.6-49.0); Hemoglobin 10.8 g/dL (13.6-17.9); Lymphocytes % 12.5 % (15.3-44.8); MCHC 32.3 g/dL (32.0-36.0); MCV 83.6 fL (80-100); MPV 8.3 fL (7.6-11.3); Monocytes % 10.2 % (3.3-12.3); Neutrophils % 75.8 % (41.7-73.7); Nucleated Red Blood Cells % 0.1 % (0-0); Platelets 189 thou/uL (152-406); Red Cell Distribution Width 19.5 % (12.1-15.2)
[2024-12-08 19:48] LABS: PT Prothrombin Time 12.6 SECONDS (10-13.0); PTT, Activated Partial Thromb 31.8 SECONDS (27.2-37.4); Protime INR 1.11
--- NOTE | 2024-12-08 19:59 | RAD REPORT ---
EXAMINATION: ONE VIEW CHEST XR CLINICAL INDICATION: Male, 69 years old.,COUGH TECHNIQUE: Frontal chest projection is submitted. Examination is limited by patient positioning and t echnique. COMPARISON: 11/24/2024 FINDINGS: The lungs are grossly clear although suboptimal inspiratory effort somewhat limits evaluation. Patien t rotation also limits evaluation. No pneumothorax or sizable effusion. The heart is normal in size. Mediastinal contours are unchanged with sequelae of median sternotomy. IMPRESSION: No acute intrathoracic abnormalities.
[2024-12-08 20:03] LABS: Albumin 2.8 g/dL (3.4-5.0); Albumin/Globulin Ratio 0.7 (1.1-1.8); Alkaline Phosphatase 64 U/L (45-117); Anion Gap 10.5 mEq/L (5.0-15.0); BUN Blood Urea Nitrogen 33 mg/dL (7-18); Bicarbonate 26 mEq/L (21-32); Bilirubin Total 0.4 mg/dL (0.2-1.0); Glomerular Filtration Rate 68 ml/min (=/>90); Glucose Level 211 mg/dL (74-106); Magnesium 2.5 mg/dL (1.6-2.4); Protein, Total 6.8 g/dL (6.4-8.2); Sodium Level 142 mEq/L (136-145); Troponin High Sensitivity 11.7 pg/mL (<58.9)
[2024-12-08 20:07] LABS: ALT/SGPT < 14 U/L (16-61); AST/SGOT < 10 U/L (15-37); Bilirubin Direct < 0.2 mg/dL (0-0.2); Bilirubin Indirect, Calculated 0.2 mg/dL (0.2-0.8)
[2024-12-08 20:10] LABS: Potassium 2.5 mEq/L (3.5-5.1)
--- NOTE | 2024-12-08 20:14 | RAD REPORT ---
EXAM: CT Head Brain Wo Cont HISTORY: MENTAL STATUS CHANGE COMPARISON: 10/25/2024 TECHNIQUE: Multiple contiguous axial images were obtained for a CT of the brain without contrast. Sag ittal and coronal reformats were performed. One or more of the following dose reduction techniques were used: Automated exposure control, adjus tment of the mA and kV according to patient size, and iterative reconstruction. Unless otherwise specified, incidental findings do not require dedicated imaging follow-up. FINDINGS: No evidence of hydrocephalus, intracranial hemorrhage, or extra-axial fluid collection. Stable encephalomalacia centered on the left parietal lobe. Other areas of encephalomalacia involvin g the left frontal parasagittal cortex and high right frontal lobe centered on the middle frontal gyrus are stable Advanced subcortical and deep white matter hypodensities more pronounced on the left, with background diffuse parenchymal volume loss, stable. Findings are nonspecific and may relate to age-appropriate chronic small vessel ischemic changes. The calvarium is intact. Mucosal thickening with air-fluid level in the left maxillary sinus and left sphenoid sinus, new. Mastoid air cells are essentially clear. IMPRESSION: No evidence of acute intracranial abnormality. Stable sequelae of remote ischemia and presumed chronic small vessel ischemic changes as above.
[2024-12-08] MEDS ORDERED: KCL 20 MEQ/100 mL IVPB 100 ML IV ONE (20:41)
--- NOTE | 2024-12-08 22:24 | ER ---
Nurse's Notes [facility] Name: Donaldo English Age: 69 yrs Sex: Male : 1955 Arrival Date: 12/08/2024 Time: 18:35 Bed 5 Private MD: Diagnosis: Weakness;Hypokalemia;Altered mental status, unspecified;Foot Laceration/ Open wound of foot Presentation: 12/08 18:43 Chief complaint: EMS states: pt has been drowsy all day, the NH woke him up and he was iw drooling , family wants him evaluated in ER, was here yesterday , EMS reports his BP was initially 90s over 50s but up to 120 systolic en route BS was 330. Coronavirus screen: At this time, the client does not indicate any symptoms associated with coronavirus-19. Ebola Screen: No symptoms or risks identified at this time. Risk Assessment: Do you want to hurt yourself or someone else? Patient reports no desire to harm self or others. 18:43 Method Of Arrival: EMS: [facility] iw 18:43 Acuity: LILIANA 3 iw 18:46 Initial Sepsis Screen: Does the patient meet any 2 criteria? No. Patient's initial iw sepsis screen is negative. Does the patient have a suspected source of infection? No. Patient's initial sepsis screen is negative. Onset of symptoms was December 08, 2024. 18:46 Care prior to arrival: Medication(s) given: Normal saline infusion, 400 mL IV iw initiated. 20 GA, in the left forearm, Glucose check: 330. Historical: - Allergies: 18:45 No Known Allergies; iw - PMHx: 18:45 Cerebrovascular accident; coronary atherosclerosis; Dementia; depressive disorder; iw diabetes mellitus; dysphasia (Speech disturbances); Hypertensive disorder; Hypothyroidism; Right sided weakness; schizoaffective disorder; Seizure; Speech disturbances; - PSHx: 18:45 Quadruple bipass; right foot; iw - Immunization history:: Adult Immunizations unknown. - Infectious Disease History:: Denies. - Social history:: Smoking status: Patient denies any tobacco usage or history of. Screenin:31 Abuse screen: Denies threats or abuse. Denies injuries from another. Nutritional dd2 screening: No deficits noted. Tuberculosis screening: No symptoms or risk factors identified. 19:36 [facility] ED Fall Risk Assessment (Adult) History of falling in the last 3 months, dd2 including since admission No falls in past 3 months (0 pts) Confusion or Disorientation Yes (5 pts) Intoxicated or Sedated No (0 pts) Impaired Gait Yes (1 pt) Mobility Assist Device Used Yes (1 pt) Altered Elimination Yes (1 pt) Score/Fall Risk Level 3 or more points = High Risk Oriented to surroundings, Maintained a safe environment, Educated pt \T\ family on fall prevention, incl call for assistance when getting out of bed, Assessed \T\ reinforced patient's understanding of fall precautions, Hourly rounding (assess needs \T\ fall precautionary measures) done, Activated bed/chair alarm. Assessment: 19:36 General: Appears in no apparent distress. Behavior is drowsy. Pain: Complains of pain dd2 in right knee Aggravated by repositioning, Unable to use pain scale. Does not appear to understand pain scale. Patient appears agitated, to be moaning. Neuro: Carty Agitation-Sedation Scale (RASS): -1 Drowsy Level of Consciousness is confused, DROWSY. Oriented to person, HX DEMENTIA. Cardiovascular: JVD is absent Patient's skin is warm and dry. Respiratory: Airway is patent Respiratory effort is even, unlabored, Respiratory pattern is regular, symmetrical, Breath sounds are clear bilaterally. GI: Abdomen is round distended, Bowel sounds present X 4 quads. Abd is non tender X 4 quads. : No deficits noted. No signs and/or symptoms were reported regarding the genitourinary system. EENT: No deficits noted. No signs and/or symptoms were reported regarding the EENT system. Derm: Wound noted lateral aspect of right toes and medial aspect of right toes. Musculoskeletal: Circulation, motion, and sensation intact. Range of motion: limited in right knee Tenderness present in right knee. Vital Signs: 18:43 BP 151 / 67; Pulse 69; Resp 14 S; Temp 97.7; Pulse Ox 100% on R/A; iw 19:31 BP 118 / 60; Pulse 67; Resp 16; Pulse Ox 100% on R/A; dd2 21:34 BP 119 / 62; Pulse 66; Resp 16; Pulse Ox 100% on R/A; dd2 23:10 BP 123 / 69; Pulse 53; Resp 16; Temp 98.2; Pulse Ox 98% on R/A; Pain 0/10; dd2 23:36 Weight 120.2 kg; Height 6 ft. 0 in. ; dd2 23:36 Body Mass Index 35.94 (120.20 kg, 182.88 cm) dd2 23:10 Pain Scale: Adult dd2 Nickolas Coma Score: 19:36 Eye Response: to voice(3). Motor Response: localizes pain(5). Verbal Response: dd2 confused(4). Total: 12. ED Course: 18:42 Patient arrived in ED. iw 18:45 Triage completed. iw 18:51 Arm band placed on. iw 19:02 Shakila English FNP-C [facility]. kb 19:02 Alex Granger MD is Attending Physician. kb 19:31 Patient has correct armband on for positive identification. Bed in low position. Call dd2 light in reach. Side rails up X2. Client placed on continuous cardiac and pulse oximetry monitoring. NIBP monitoring applied. security monitor on. Door closed. Noise minimized. Warm blanket given. Pillow given. Verbal reassurance given. 19:31 No provider procedures requiring assistance completed. Initial lab(s) drawn, by me, dd2 sent to lab. EKG done, by ED staff, reviewed by Shakila GERARD. Missed attempt(s): 22 gauge in right forearm. Maintain EMS IV. Dressing intact. Good blood return noted. Site clean \T\ dry. Gauge \T\ site: 20G LT FOREARM. IV is patent, with fluids infusing freely, with good blood return. Patient maintains SpO2 saturation greater than 95% on room air. 19:34 LATESHA JOHNSON, RN is Primary Nurse. dd2 19:44 CT Head Brain wo Cont In Process Unspecified. EDMS 19:50 Chest Single View XRAY In Process Unspecified. EDMS 22:22 Foot Right 3 View XRAY In Process Unspecified. EDMS 22:23 Prince Torres MD is Hospitalizing Provider. kb 22:50 First set of blood cultures drawn by me, Second set of blood cultures drawn by me, dd2 Urine collected: straight cath specimen, trevor colored. Inserted saline lock: 22 gauge in right upper arm, using aseptic technique. Blood collected. Flushed with 10 mL NS. 23:09 Blood Culture Adult (2) Sent. dd2 23:09 Lactate w/ 2H reflex if indic. Sent. dd2 23:24 Patient admitted, IV remains in place. dd2 Administered Medications: 20:51 Drug: Potassium Chloride IV 20 mEq IV at calculated rate once; administer over 1-2 dd2 hours Route: IV; Rate: calculated rate; Site: left forearm; 21:51 Follow up: IV Status: Completed infusion; IV Intake: 100ml dd2 Medication: 19:31 VIS not applicable for this client. dd2 Intake: 21:51 IV: 100ml; Total: 100ml. dd2 Outcome: 22:23 Decision to Hospitalize by Provider. kb 23:24 Admitted to ER Hold. [facility] for [facility] documentation. dd2 23:24 Condition: stable 23:24 Instructed on the need for admit, Demonstrated understanding of instructions, 12/09 07:56 Patient left the ED. ph Signatures: Dispatcher [employer] EDMS Shakila English, CORTEZ-C COIN PURSE ASSEMBLER-Judy Abel RN RN Belen Mcghee RN RN LATESHA JOHNSON RN RN dd2 Corrections: (The following items were deleted from the chart) 12/08 18:55 18:43 BP 151 / 67; Resp 14bpm; Spontaneous; iw iw
--- NOTE | 2024-12-08 22:24 | EDPHYS ---
Physician Documentation [facility] Name: Donaldo English Age: 69 yrs Sex: Male : 1955 Arrival Date: 12/08/2024 Time: 18:35 Bed 5 Private MD: ED Physician Alex Granger HPI: 12/08 22:14 This 69 yrs old Male presents to ER via EMS with complaints of Altered Mental Status. kb 22:14 Patient is a 69-year-old male who was brought in for altered mental status. Daughter kb states that patient has been weak all day and not acting himself. Not sure when this started because [facility] [place] [facility] [place]. Daughter would like potassium checked because it was not checked yesterday. Also states that she is not sure if his wound is getting worse or not. Was supposed to be seen by Dr. Flores for that tomorrow. Historical: - Allergies: 18:45 No Known Allergies; iw - PMHx: 18:45 Cerebrovascular accident; coronary atherosclerosis; Dementia; depressive disorder; iw diabetes mellitus; dysphasia (Speech disturbances); Hypertensive disorder; Hypothyroidism; Right sided weakness; schizoaffective disorder; Seizure; Speech disturbances; - PSHx: 18:45 Quadruple bipass; right foot; iw - Immunization history:: Adult Immunizations unknown. - Infectious Disease History:: Denies. - Social history:: Smoking status: Patient denies any tobacco usage or history of. ROS: 22:12 Constitutional: As per HPI kb Exam: 21:41 ECG was reviewed by the Attending Physician. kb 22:12 Constitutional: This is a well developed, well nourished patient who is awake, alert, kb and in no acute distress. Head/Face: Normocephalic, atraumatic. ENT: Moist Mucous membranes Cardiovascular: Regular rate Respiratory: Respirations even and unlabored. No increased work of breathing. Talking in full sentences Abdomen/GI: Soft, non-tender. No distention 22:12 Skin: open wound to right great toe s/p amputation. 22:12 Neuro: Mentation: able to follow commands, Motor: moves all fours, Vital Signs: 18:43 BP 151 / 67; Pulse 69; Resp 14 S; Temp 97.7; Pulse Ox 100% on R/A; iw 19:31 BP 118 / 60; Pulse 67; Resp 16; Pulse Ox 100% on R/A; dd2 21:34 BP 119 / 62; Pulse 66; Resp 16; Pulse Ox 100% on R/A; dd2 23:10 BP 123 / 69; Pulse 53; Resp 16; Temp 98.2; Pulse Ox 98% on R/A; Pain 0/10; dd2 23:36 Weight 120.2 kg; Height 6 ft. 0 in. ; dd2 23:36 Body Mass Index 35.94 (120.20 kg, 182.88 cm) dd2 23:10 Pain Scale: Adult dd2 Nickolas Coma Score: 19:36 Eye Response: to voice(3). Motor Response: localizes pain(5). Verbal Response: dd2 confused(4). Total: 12. MDM: 19:02 Medical Screening Exam initiated kb 22:13 Differential Diagnosis: electrolyte abnormality, hypoglycemia, volume depletion. Data kb reviewed: vital signs, nurses notes. Consideration of Admission/Observation Patient was admitted/placed on observation. Escalation of care including admission/observation considered. Historians other than the Patient: EMS: [facility]. Daughter/Son: daughter. Counseling: I had a detailed discussion with the patient and/or guardian regarding the historical points, exam findings, and any diagnostic results supporting the discharge/admit diagnosis, lab results, radiology results, the need for further work-up and treatment in the hospital. 22:20 Management of patient was discussed with the following: Cage/Vault Supervisor: Dr Mark corrales recommends admission with NPO after midnight. Will evaluated in the morning for possible clean out in OR. 22:22 Management of patient was discussed with the following: Hospitalist: Dr Alvarez accepts antoni pt for admission. 12/08 19:15 Order name: Basic Metabolic Panel; Complete Time: 20:10 kb 12/08 19:15 Order name: CBC with Diff; Complete Time: 19:39 kb 12/08 19:15 Order name: Hepatic Function; Complete Time: 20:10 kb 12/08 19:15 Order name: Magnesium; Complete Time: 20:10 kb 12/08 19:15 Order name: Protime (+inr); Complete Time: 20:08 kb 12/08 19:15 Order name: Ptt, Activated; Complete Time: 20:08 kb 12/08 19:15 Order name: Troponin High Sensitivity; Complete Time: 20:10 kb 12/08 19:15 Order name: Urinalysis w/ reflexes; Complete Time: 23:06 kb 12/08 22:24 Order name: Blood Culture Adult (2) kb 12/08 22:24 Order name: Lactate w/ 2H reflex if indic.; Complete Time: 23:24 kb 12/08 22:44 Order name: Magnesium EDMS 12/08 22:44 Order name: NT PRO-BNP EDMS 12/08 22:44 Order name: Phosphorus EDMS 12/08 22:44 Order name: Urinalysis w/ reflexes EDMS 12/08 22:44 Order name: Basic Metabolic Panel EDMS 12/08 22:44 Order name: Basic Metabolic Panel EDMS 12/08 22:44 Order name: CBC with Automated Diff EDMS 12/08 22:44 Order name: CBC with Automated Diff EDMS 12/09 01:24 Order name: Ghost Lactate-NO COLLECT Timer EDMS 12/09 02:46 Order name: Lactate Sepsis 2 HR Follow-up EDMS 12/08 19:15 Order name: CT Head Brain wo Cont; Complete Time: 20:29 kb 12/08 19:15 Order name: Chest Single View XRAY; Complete Time: 20:08 kb 12/08 21:42 Order name: Foot Right 3 View XRAY; Complete Time: 23:22 kb 12/08 19:15 Order name: EKG; Complete Time: 19:15 kb 12/08 19:15 Order name: Cardiac monitoring; Complete Time: 19:24 kb 12/08 19:15 Order name: EKG - Nurse/Tech; Complete Time: 19:24 kb 12/08 19:15 Order name: IV Saline Lock; Complete Time: 19:30 kb 12/08 19:15 Order name: Labs collected and sent; Complete Time: 19:30 kb 12/08 19:15 Order name: NPO; Complete Time: 19:30 kb 12/08 19:15 Order name: O2 Per Protocol; Complete Time: 19:25 kb 12/08 19:15 Order name: O2 Sat Monitoring; Complete Time: 19:25 kb 12/08 21:42 Order name: Straight Cath; Complete Time: 23:09 kb EC:41 Rate is 69 beats/min. Rhythm is regular. QRS Ray is Normal. OH interval is normal at kb 174 msec. QRS interval is normal at 108 msec. QT interval is normal at 462 msec. Administered Medications: 20:51 Drug: Potassium Chloride IV 20 mEq IV at calculated rate once; administer over 1-2 dd2 hours Route: IV; Rate: calculated rate; Site: left forearm; 21:51 Follow up: IV Status: Completed infusion; IV Intake: 100ml dd2 Disposition Summary: 12/08/24 22:23 Hospitalization Ordered Notes: Hospitalization Status: Observation kb Provider: Prince antoni Torres Condition: Stable kb Problem: new kb Symptoms: are unchanged kb Bed/Room Type: Standard Location: Telemetry/MedSurg (observation)(12/09/24 06:41) Room Assignment: 424(12/09/24 06:41) Diagnosis - Weakness kb - Hypokalemia kb - Altered mental status, unspecified kb - Foot Laceration/ Open wound of foot kb Forms: - Medication Reconciliation Form kb - SBAR form kb - Leadership Thank You Letter kb Signatures: Dispatcher [employer] EDShakila Dowd, CORTEZ-C FABRIC WORKER SUPERVISOR-Erica Lilly RN RN kl Williams, Irene, RN RN iw DAVIS, DIANA, RN RN dd2 Corrections: (The following items were deleted from the chart) 23:47 22:23 Telemetry/MedSurg (observation) [facility] 23:47 22:23 [facility] 12/09 06:41 12/08 23:47 [facility] ER HOLD [facility] 12/09 06:41 12/08 23:47 ERHOLD- [facility]
[2024-12-08] MEDS ORDERED: IPRATROPIUM BROM 0.5MG/2.5ML NEB PRN (22:40)
[2024-12-08] MEDS ORDERED: ALBUTEROL 2.5 MG/3 ML NEB SOL NEB PRN (22:40)
[2024-12-08] MEDS ORDERED: ONDANSETRON 4 MG/2 ML VIAL IV PRN (22:40)
--- NOTE | 2024-12-08 22:50 | P.HP ---
Certification for Inpatient Patient admitted to: Inpatient With expected LOS: >2 Midnights Practitioner: I am a practitioner with admitting privileges, knowledge of patient current condition, hospital course, and medical plan of care. Services: Services provided to patient in accordance with Admission requirements found in Title 42 Section 412.3 of the Code of Federal Regulations Patient History Date of Service: 12/08/24 Reason for admission: Nonhealing postsurgical wound History of Present Illness: Patient is a 69-year-old male known to this hospital facility. He has a history of dementia. He is a senior care resident. He has been admitted several times for the poorly healing surgical wound, specifically at the site of right big toe amputation. He is known to general surgery, Dr. Fair. He is brought in this time for altered mental status. His wounds appeared infected. Foot x-ray has been done, results still pending. His mental status is back to baseline.Patient has a history of peripheral vascular disease complicated by critical right popliteal stenosis which has been managed in the past with angioplasty and eventually right great toe partial amputation in September 2024. He has had other admission for wound cellulitis at the surgical site. He was last seen here November 15, 2024 and underwent debridement of chronic wound at the first metatarsal. Patient was treated with antibiotics and discharged. His wound culture at the time yielded ESBL E. coli. However, surgical wound culture yielded nearly pansensitive E. coli. Patient was discharged on Bactrim and cefdinir. Allergies No Known Allergies Allergy (Verified 10/15/24 02:56) Home Medications: Atorvastatin Calcium 40 mg PO BEDTIME 05/31/21 Clopidogrel Bisulfate [Plavix] 75 mg PO DAILY 05/31/21 Furosemide [Lasix] 20 mg PO DAILY 05/31/21 Insulin Glargine,Hum.rec.anlog [Lantus] 26 unit SQ BID 05/31/21 Acetaminophen [Tylenol] 650 mg PO Q4HP PRN 05/20/24 Amlodipine [Norvasc*] 5 mg PO DAILY 05/20/24 Aripiprazole [Abilify] 5 mg PO BEDTIME 05/20/24 Aspirin 325 mg PO DAILY 05/20/24 Divalproex [Depakote Sprinkle*] 4 cap PO BID 05/20/24 Gabapentin [Neurontin*] 100 mg PO DAILY 05/20/24 Omeprazole 20 mg PO DAILY 05/20/24 Potassium Chloride 20 meq PO DAILY 05/20/24 Rivastigmine Tartrate [Rivastigmine] 1.5 mg PO BID 05/20/24 Sertraline HCl 50 mg PO DAILY 05/20/24 Sitagliptin Phosphate [Januvia] 100 mg PO DAILY 05/20/24 levETIRAcetam [Keppra] 100 ml PO BID 05/20/24 Lactulose 30 ml PO Q12HP PRN 06/10/24 Levothyroxine Sodium 125 mcg PO 0600 06/10/24 Insuln Asp Prt/Insulin Aspart [Novolog Mix 70-30 Vial] See Protocol SQ BID 10/11/24 Lactobacillus Combination No.4 [Probiotic] 2 cap PO DAILY 10/11/24 Metoprolol Tartrate [Lopressor*] 25 mg PO BID 10/11/24 Simethicone [Gas Relief] 125 mg PO Q6HP PRN 10/11/24 Bisacodyl [Dulcolax*] 10 mg NM DAILY PRN #0 supp 10/21/24 Collagenase [Santyl Ointment*] 1 appl TOP DAILY tube 10/21/24 Hydrocodone 5/APAP 325 [[place] 5/325*] 1 tab PO Q6H PRN #15 tab 10/21/24 Amino Acids/Protein Hydrolys [Prosource No Carb Liquid Pkt] 30 ml PO BID #60 packet 11/05/24 Cefdinir [Cefdinir*] 300 mg PO BID #20 cap 11/20/24 Collagenase [Santyl Ointment*] 1 appl TOP DAILY #0 gm 11/20/24 Hydrocodone 7.5/APAP 325 [[place] 7.5/325 mg] 1 tab PO Q12H PRN #20 tab 11/20/24 Smz./Tmp. [Bactrim Ds 800 MG/160 MG] 1 tab PO BID #20 tab 11/20/24 - Past Medical/Surgical History Diabetic: Yes -: cva residual right-sided weakness -: Depressive disorder -: gallstones -: diabetic retinopathy -: depression -: thyroid disease -: siezures -: CAD -: Diabetes mellitusIDDM -: Schizophrenia -: Speech disturbances -: Dimension -: CABG -: thyoidectomy -: right 5th toe amputation -: BLE stents - Social History Alcohol use: No CD- Drugs: No Caffeine use: No Physical Examination - Physical Exam General: Confused HEENT: Atraumatic, Normocephalic Cardiovascular: No edema, Normal pulses, Regular rate/rhythm, Normal S1 S2 Musculoskeletal: Other (Status post right great toe amputation) Neurological: Dementia - Studies Laboratory Data (last 24 hrs) 12/08/24 12/08/24 12/08/24 19:28 19:28 19:28 WBC 8.30 Hgb 10.8 L Hct 33.5 L Plt Count 189 PT 12.6 INR 1.11 APTT 31.8 Sodium 142 Potassium 2.5 L* BUN 33 H Creatinine 1.17 Glucose 211 H Magnesium 2.5 H Total Bilirubin 0.4 AST < 10 L ALT < 14 L Alkaline Phosphatase 64 Assessment and Plan - Problems (Diagnosis) (1) Amputation of right great toe Current Visit: No Status: Acute (2) GERD (gastroesophageal reflux disease) Current Visit: No Status: Acute (3) History of CVA (cerebrovascular accident) Current Visit: No Status: Acute (4) History of four vessel coronary artery bypass graft Current Visit: No Status: Acute (5) Hyperlipidemia Current Visit: No Status: Acute (6) PAD (peripheral artery disease) Current Visit: No Status: Acute (7) Type 2 diabetes mellitus with diabetic peripheral angiopathy without gangrene Current Visit: No Status: Acute - Plan Assessment This is a 69-year-old male with extensive cardiovascular history including CABG, severe peripheral artery disease, uncontrolled diabetes mellitus status post right great toe amputation for abscess and necrosis. He has had multiple admissions for poorly healing postsurgical wound. He was last seen here on 11/15/2024 and underwent a debridement. He now returns with altered mental status and appears to have an infected wound Postsurgical site infection and wound cellulitis Severe peripheral artery disease Coronary disease status post CABG History of CVA with residual dysphagia and aphasia Insulin-dependent diabetes mellitus Hypertension Hyperlipidemia Plan: Will admit inpatient with telemetry Will continue empiric antibiotics General Surgery consulted N.p.o. after midnight Multimodal pain regimen Resume rest of home medication upon reconciliation - Advance Directives Does patient have a Living Will: No Does patient have a Durable POA for Healthcare: Yes
[2024-12-08] MEDS ORDERED: VANCOMYCIN 1.5 GM in NA CHLORIDE 0.9% 500 ML IVPB SCH (22:56)
[2024-12-08 23:05] LABS: Sqamous Epithelial None Seen /HPF (None Seen); Urine Bacteria None Seen /HPF (<20); Urine Bilirubin NEGATIVE (Negative); Urine Blood Negative (Negative); Urine Clarity Clear (Clear); Urine Color Yellow (Yellow); Urine Crystals Unidentified Few /HPF (None Seen); Urine Culture Reflex Order NOT NEEDED; Urine Glucose 1+ (Negative); Urine Ketones NEGATIVE (Negative); Urine Microscopic Reflex YN ORDER UMIC; Urine Mucus Slight /HPF (None Seen); Urine Nitrite NEGATIVE (Negative); Urine Protein TRACE (Negative); Urine RBC <5 /HPF (None Seen); Urine Urobilinogen Normal (Normal); Urine WBC <5 /HPF (<5)
--- NOTE | 2024-12-08 23:20 | RAD REPORT ---
EXAMINATION: XR Foot Right 3 View CLINICAL INDICATION: Male, 69 years old. [facility] MAIN PAIN Bed Name: 5 TECHNIQUE: 3 view radiographs of the right foot were obtained. COMPARISON: 11/15/2024 FINDINGS: Stable alignment with sequelae of first ray amputation near the metatarsal bases, and fifth digit amputation at the level of the metatarsophalangeal articulation. No evidence of arthropathy or other focal bone lesion. Soft tissues are unremarkable. Small calcaneal spur. Moderate midfoot deg enerative changes. IMPRESSION: No acute osseous abnormalities. Stable findings as above.
[2024-12-09 00:28] VITALS: BMI 35.9
[2024-12-09] MEDS ORDERED: CEFTRIAXONE 1000 MG/VIAL ONE (00:33)
[2024-12-09] MEDS ORDERED: NA CHLORIDE 0.9% 50 ML ONE (00:34)
[2024-12-09] MEDS ORDERED: NA CHLORIDE 0.9% 1,000 ML ONE (00:34)
[2024-12-09] MEDS: CEFTRIAXONE 1,000 MG in NA CHLORIDE 0.9% 50 ML IVPB SCH (00:36)
[2024-12-09] MEDS: NA CHLORIDE 0.9% 1,000 ML IV SCH (00:37)
[2024-12-09] MEDS ORDERED: VANCOMYCIN 500 MG/VIAL ONE (02:15)
[2024-12-09] MEDS ORDERED: VANCOMYCIN 1 GM/VIAL ONE (02:15)
[2024-12-09] MEDS ORDERED: NA CHLORIDE 0.9% 500 ML ONE (02:20)
[2024-12-09] MEDS: VANCOMYCIN 2 GM in NA CHLORIDE 0.9% 500 ML IVPB SCH ×2 (02:30→19:48)
[2024-12-09 05:52] LABS: Absolute Basophils 0.1 K/uL (0-0.5); Absolute Eosinophils 0.2 K/uL (0-0.5); Absolute Lymphocytes (CBC) 0.9 K/uL (0.7-4.9); Absolute Monocytes 0.8 K/uL (0.1-1.3); Absolute Neutrophil 4.6 K/uL (1.8-8.0); Basophils % 0.8 % (0-1.3); Eosinophils % 2.6 % (0-4.4); Hematocrit 30.8 % (39.6-49.0); Hemoglobin 10.1 g/dL (13.6-17.9); Lymphocytes % 13.1 % (15.3-44.8); MCH 27.4 pg (27.0-35.0); MCHC 32.7 g/dL (32.0-36.0); MCV 83.9 fL (80-100); MPV 7.8 fL (7.6-11.3); Monocytes % 11.9 % (3.3-12.3); Neutrophils % 71.6 % (41.7-73.7); Nucleated Red Blood Cells % 0.1 % (0-0); Platelets 156 thou/uL (152-406); RBC Red Blood Cell Count 3.67 M/uL (4.33-5.43); Red Cell Distribution Width 19.6 % (12.1-15.2)
[2024-12-09 06:09] LABS: Magnesium 2.2 mg/dL (1.6-2.4); Phosphorus 2.7 mg/dL (2.5-4.9)
[2024-12-09 06:40] LABS: Anion Gap 7.5 mEq/L (5.0-15.0)
[2024-12-09 06:42] LABS: Potassium 2.5 mEq/L (3.5-5.1)
--- NOTE | 2024-12-09 08:04 | P.PN ---
Date of Service: 12/09/24 Subjective: no acute changes no new/worsening continues with leg pain ROS: 10 point ROS as noted above, otherwise negative Physical Exam: GEN: Alert, oriented, NAD CV: Regular rate and rhythm, no edema Pulm: Nonlabored respirations on room air, clear bilaterally Integumentary: wound wrapped Problem List: Acute encephalopathy Concern for infected right foot wound Critical Right popliteal stenosis s/p balloon angioplasty (10/16) Moderate PVD Right Lower Extremity, now s/p partial ray amputation of Right great toe (10/16) Hypernatremia Hypokalemia Delmy syndrome Hypertension Hyperlipidemia Hypothyroidism Dementia Seizure disorder IDDM2 Hx of CAD s/p CABG 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 BP initially 90/50 on EMS arrival. Improved to 120s en route to ER. Right foot post surgical site concerning for infection. Patient with multiple recent hospitalization for poor healing wound. Underwent angioplasty and eventually right great toe partial amputation in September 2024. Most recently underwent I&D on 11/15/[address] Flores. 1 wound culture grew E. coli ESBL however surgical wound culture grew near pansensitive E. coli and was discharged with Bactrim/Cefdinir. Dr. Flores, general surgeon to eval wounds NPO for now until eval by surgery Continue empiric rocephin / vanc (12/09-) lactic acid improved 2.1 -> 1.6 Mentation improved ~baseline. Dr Henry consulted - will check CTA of leg Hypernatremia Hypokalemia Daily labs. Monitor and replete electrolytes as needed. 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 Continue supportive care. IDDM2 accu-cheks, SSI confirm home insulin regimen Hypertension Hyperlipidemia Hypothyroidism Dementia Seizure disorder Hx of CAD s/p CABG Hx of CVA with residual right-sided weakness and dysphagia confirm home meds, restart as appropriate Code: Full Dispo: SNF, ~3 days Pending surgical recs Time Spent Managing Pts Care (In Minutes): 55
[2024-12-09] MEDS ORDERED: GLUCAGON 1 MG/VIAL IM PRN (08:56)
[2024-12-09] MEDS ORDERED: D10W 125 ML IV PRN (08:56)
[2024-12-09] MEDS: D5 0.45 NS 1,000 ML IV SCH (09:45)
[2024-12-09] MEDS: INSULIN REGULAR (HUMAN) 100 UNIT/ML SQ SCH (11:30)
[2024-12-09] MEDS: MELATONIN 3 MG TABLET PO PRN (22:25)
[2024-12-09] MEDS: ACETAMINOPHEN 500 MG TAB PO PRN (22:25)
[2024-12-10] LABS: Anion Gap 5.2 mEq/L (5.0-15.0)
[2024-12-10 00:12] LABS: Potassium 2.2 mEq/L (3.5-5.1)
[2024-12-10] MEDS: KCL 20 MEQ/100 mL IVPB 20 MEQ/100 ML BAG IV SCH (00:46)
[2024-12-10 07:18] LABS: Absolute Basophils 0.1 K/uL (0-0.5); Absolute Eosinophils 0.1 K/uL (0-0.5); Absolute Lymphocytes (CBC) 0.6 K/uL (0.7-4.9); Absolute Monocytes 0.8 K/uL (0.1-1.3); Absolute Neutrophil 4.5 K/uL (1.8-8.0); Basophils % 0.9 % (0-1.3); Eosinophils % 2.4 % (0-4.4); Hematocrit 31.7 % (39.6-49.0); Hemoglobin 10.7 g/dL (13.6-17.9); Lymphocytes % 10.1 % (15.3-44.8); MCHC 33.8 g/dL (32.0-36.0); MCV 82.8 fL (80-100); MPV 7.7 fL (7.6-11.3); Monocytes % 13.1 % (3.3-12.3); Neutrophils % 73.5 % (41.7-73.7); Nucleated Red Blood Cells % 0.1 % (0-0); Platelets 161 thou/uL (152-406); RBC Red Blood Cell Count 3.83 M/uL (4.33-5.43); Red Cell Distribution Width 19.2 % (12.1-15.2)
[2024-12-10 07:46] LABS: Anion Gap 9.5 mEq/L (5.0-15.0); Magnesium 2.1 mg/dL (1.6-2.4)
[2024-12-10 07:51] LABS: Potassium 2.5 mEq/L (3.5-5.1)
[2024-12-10] MEDS: COLLAGENASE 30 GM OINTMENT TOP SCH (08:12)
--- NOTE | 2024-12-10 08:41 | EKG ---
Test Date: 2024-12-08 Test Time: 19:21:18 [employer] Usher: RV MEASUREMENT RESULTS: Intervals: Rate: 69 ID: [id number] QRSD: 108 QT: 432 QTc: 462 Candia: P: 51 ID: [id number] QRS: 13 T: 3 INTERPRETIVE STATEMENTS: Normal sinus rhythm Possible Left atrial enlargement T wave abnormality, consider anterior ischemia Prolonged QT Abnormal ECG Compared to ECG 11/24/2024 14:46:12 T-wave abnormality now present Possible ischemia now present Prolonged QT interval now present Electronically Signed On 12-10-24 08:36:44 CDT by Faustino Hernández
[2024-12-10] MEDS: NYSTATIN PWDR 100000 UNIT/GM TOP SCH (09:00)
--- NOTE | 2024-12-10 09:18 | RAD REPORT ---
EXAM: CTA of the right lower extremity runoff HISTORY: Claudication. right leg - eval flow, h/o PAD COMPARISON: 10/16/2024 TECHNIQUE: Multiple contiguous axial images were obtained a CTA of the right leg with contrast per an giographic protocol. This involves 3D reconstructions, MIPs, volume rendered images and/or shaded surface rendering. One or more of the following dose reduction techniques were used: Automated exposu re control, adjustment of the mA and/or kV according to patient size, and/or iterative reconstruction. Unless otherwise specified, incidental findings do not require dedicated imaging foll ow-up. Sagittal and coronal 3-D MIP reformats were performed. FINDINGS: No significant stenosis seen of the external iliac artery or common femoral artery on the right. Prof unda femoral appears patent. [id number] right superficial femoral artery plaquing with focal moderate stenosis distally. There is a stent in the popliteal artery. Predominately single vessel run off seen to the foot. No soft tissue mass or hematoma. No bony finding. No evidence of a knee joint effusion. IMPRESSION: Patent popliteal artery stent with single vessel runoff to the foot. [id number] multifocal atherosclerotic plaquing of the SFA.
[2024-12-10 10:10] LABS: AST/SGOT 11 U/L (15-37); Albumin 2.4 g/dL (3.4-5.0); Albumin/Globulin Ratio 0.8 (1.1-1.8); Alkaline Phosphatase 53 U/L (45-117); Anion Gap 7.4 mEq/L (5.0-15.0); BUN Blood Urea Nitrogen 13 mg/dL (7-18); Bicarbonate 29 mEq/L (21-32); Bilirubin Total 0.5 mg/dL (0.2-1.0); Globulin 3.2 g/dL (2.3-3.5); Glomerular Filtration Rate 109 ml/min (=/>90); Glucose Level 122 mg/dL (74-106); Protein, Total 5.6 g/dL (6.4-8.2); Sodium Level 146 mEq/L (136-145)
[2024-12-10 10:12] LABS: ALT/SGPT < 14 U/L (16-61)
[2024-12-10 10:15] LABS: Potassium 2.4 mEq/L (3.5-5.1)
--- NOTE | 2024-12-10 10:53 | P.PN ---
Date of Service: 12/10/24 Subjective: mentation improved, ~baseline doesn't feel worse lower extremity pain more tolerable afebrile ROS: 10 point ROS as noted above, otherwise negative Physical Exam: GEN: Alert, oriented, NAD CV: Regular rate and rhythm, no edema Pulm: Nonlabored respirations on room air, clear bilaterally Integumentary: wound with dressing in place Problem List: Acute encephalopathy Concern for infected right foot wound Critical Right popliteal stenosis s/p balloon angioplasty (10/16) Moderate PVD Right Lower Extremity, now s/p partial ray amputation of Right great toe (10/16) Hypernatremia Hypokalemia Dunbar syndrome Hypertension Hyperlipidemia Hypothyroidism Dementia Seizure disorder IDDM2 Hx of CAD s/p CABG 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 BP initially 90/50 on EMS arrival. Improved to 120s en route to ER. Right foot post surgical site concerning for infection. Patient with multiple recent hospitalization for poor healing wound. Underwent angioplasty and eventually right great toe partial amputation in September 2024. Most recently underwent I&D on 11/15/[address] Flores. 1 wound culture grew E. coli ESBL however surgical wound culture grew near pansensitive E. coli and was discharged with Bactrim/Cefdinir. Dr. Flores consulted empiric rocephin / vanc (12/09-) lactic acid improved 2.1 -> 1.6 Mentation improved ~baseline. 12/09 - CTA lower extremity: [id number] multifocal atherosclerotic plaquing of the SFA. Patent popliteal artery stent with single vessel runoff to the foot. Dr Henry consulted 12/10 - continue medical management, empiric abx for now local wound care with santyl and nystatin afebrile, no leukocytosis NPO for tentative surgery per Dr. Mark Henry to review CTA Hypernatremia Hypokalemia Daily labs. Monitor and replete electrolytes as needed. Continue IV fluids 12/10 - potassium 2.4 s/p 3 bags KCl s/p K-lyte 050 meq x1 recheck levels this afternoon Dunbar syndrome Patient with chronic colonic dilatation. Continue supportive care. 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
[2024-12-10] MEDS: POTASSIUM 25 MEQ EFFERV TAB PO ONE ×3 (12:05→23:40)
[2024-12-10 14:11] LABS: Potassium 2.9 mEq/L (3.5-5.1)
[2024-12-11] MEDS: LORazepam 2 MG/ML VIAL IV ONE ×2 (07:13→19:09)
--- NOTE | 2024-12-11 10:56 | P.PN ---
Date of Service: 12/11/24 -I have spoken with the patient/daughter which is his power of energy attorney. I spoke with Dr. Melendez as well Dr. Jones would like to evaluate the patient as he has significant peripheral arterial disease and has had intervention. After Dr. Wells recommendations will discuss surgical plan debridement versus possible below the knee amputation. I discussed the possibility of a below the knee amputation with the patient's family who state they would like to have Dr. German evaluated prior to consideration of any amputations at this point. They will be available to discuss this after recommendations made by Dr. German.
--- NOTE | 2024-12-11 11:37 | P.PN ---
Date of Service: 12/11/24 Subjective: mentation improved, ~baseline doesn't feel worse lower extremity pain more tolerable afebrile ROS: 10 point ROS as noted above, otherwise negative Physical Exam: GEN: Alert, oriented, NAD CV: Regular rate and rhythm, no edema Pulm: Nonlabored respirations on room air, clear bilaterally Integumentary: wound with dressing in place Problem List: Acute encephalopathy Concern for infected right foot wound Critical Right popliteal stenosis s/p balloon angioplasty (10/16) Moderate PVD Right Lower Extremity, now s/p partial ray amputation of Right great toe (10/16) Hypernatremia Hypokalemia [place] syndrome Hypertension Hyperlipidemia Hypothyroidism Dementia Seizure disorder IDDM2 Hx of CAD s/p CABG 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 BP initially 90/50 on EMS arrival. Improved to 120s en route to ER. Right foot post surgical site concerning for infection. Patient with multiple recent hospitalization for poor healing wound. Underwent angioplasty and eventually right great toe partial amputation in September 2024. Most recently underwent I&D on 11/15/[address] Flores. 1 wound culture grew E. coli ESBL however surgical wound culture grew near pansensitive E. coli and was discharged with Bactrim/Cefdinir. Dr. Flores consulted empiric rocephin / vanc (12/09-) lactic acid improved 2.1 -> 1.6 Mentation improved ~baseline. 12/09 - CTA lower extremity: [id number] multifocal atherosclerotic plaquing of the SFA. Patent popliteal artery stent with single vessel runoff to the foot. Dr Henry consulted 12/10 - continue medical management, empiric abx for now local wound care with santyl and nystatin afebrile, no leukocytosis Dr. Henry to review CTA 12/11 - NPO for possible surgery per Dr. Flores ativan 1mg x1 for agitation Hypernatremia Hypokalemia Daily labs. Monitor and replete electrolytes as needed. Continue IV fluids 12/10 - potassium 2.4 s/p 3 bags KCl s/p K-lyte 050 meq x1 repeat potassium 3.1 in afternoon 12/11 - repeat labs pending [place] syndrome Patient with chronic colonic dilatation. Continue supportive care. 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
[2024-12-11] MEDS ORDERED: ALBUTEROL 2.5 MG/3 ML NEB SOL NEB PRN (12:32)
[2024-12-11] MEDS: LORazepam 2 MG/ML VIAL ONE (19:02)
--- NOTE | 2024-12-11 19:26 | P.PN ---
Subjective Date of Service: 12/11/24 Chief Complaint: Nonhealing postsurgical wound Subjective: No new changes (Continues to have foot wound) Physical Examination - Vital Signs Temperature: 98.0 F Blood Pressure: 147/68 Pulse: 90 Respirations: 18 Pulse Ox (%): 97 - Physical Exam General: Confused HEENT: Atraumatic, Normocephalic, PERRLA Neck: JVD not distended, No Thyromegaly Respiratory: Clear to auscultation bilaterally Capillary refill: <2 Seconds Gastrointestinal: No tenderness Integumentary: Arterial ulcer - Studies Temp Pulse Resp BP Pulse Ox 98.0 F 90 18 147/68 H 97 12/11/24 16:00 12/11/24 16:00 12/11/24 16:00 12/11/24 16:00 12/11/24 16:00 Acetaminophen (Acetaminophen 500 Mg Tab) 500 mg PO Q4HP PRN PRN Reason: Pain scale 5-7 (Moderate) Last Admin: 12/10/24 14:48 Dose: 500 mg Hydrocodone Bitart/Acetaminophen (Hydrocodone/Apap 5/325 Mg Tab) 1 tab PO Q6H PRN PRN Reason: Pain scale 5-7 (Moderate) Albuterol Sulfate (Albuterol 2.5 Mg/3 Ml Neb [place]) 2.5 mg NEB [id number] PRN PRN Reason: SHORTNESS OF BREATH Aripiprazole (Aripiprazole 5 Mg Tab) 5 mg PO BEDTIME CORINNA Atorvastatin Calcium (Atorvastatin 40 Mg Tab) 40 mg PO BEDTIME [facility] Clopidogrel Bisulfate (Clopidogrel 75 Mg Tablet) 75 mg PO DAILY [facility] Collagenase (Collagenase 30 Gm Ointment) 1 appl TOP DAILY [facility] Last Admin: 12/11/24 09:00 Dose: 1 appl Divalproex Sodium (Divalproex Na 125 Mg Cap) 500 mg PO BID CORIN[facility] Gabapentin (Gabapentin 100 Mg Cap) 100 mg PO DAILY [facility] Glucagon (Glucagon 1 Mg/Vial) 1 mg IM 1X PRN PRN Reason: HYPOGLYCEMIA Ceftriaxone Sodium 1,000 mg/ (Sodium Chloride) 50 mls @ 100 mls/hr IVPB DAILY [facility]; Protocol Last Admin: 12/11/24 09:03 Dose: 50 mls Vancomycin HCl 2 gm/ Sodium (Chloride) 500 mls @ 250 mls/hr IVPB Q18H [facility] Last Admin: 12/11/24 09:03 Dose: 500 mls Dextrose (Dextrose 10% Water Iv Soln.) 125 mls @ 0 mls/hr IV PRN PRN; Protocol PRN Reason: HYPOGLYCEMIA Insulin Human Regular (Insulin Regular (Human) 100 Unit/Ml) 0 unit SQ ACHS CORINNA; Protocol Last Admin: 12/11/24 17:17 Dose: 2 unit Ipratropium [place] (Ipratropium Brom 0.5mg/2.5ml) 0.5 mg NEB [id number] PRN PRN Reason: SHORTNESS OF BREATH Levetiracetam (Levetiracetam 500 Mg/5 Ml [place]) 1,000 mg PO BID CORINNA Stop: 01/10/25 21:01 Melatonin (Melatonin 3 Mg Tablet) 3 mg PO BEDTIME PRN PRN PRN Reason: INSOMNIA Last Admin: 12/09/24 22:25 Dose: 3 mg Nystatin (Nystatin Pwdr [id number] Unit/Gm) 1 appl TOP BID [facility]INNA Last Admin: 12/11/24 09:04 Dose: 1 appl Ondansetron HCl (Ondansetron 4 Mg/2 Ml Vial) 4 mg IV Q6HP PRN PRN Reason: NAUSEA / VOMITING Laboratory Last Values WBC 8.30 thou/uL (4.3-10.9) 12/08/24 19: RBC 4.00 M/uL (4.33-5.43) L 12/08/24 19:28 Hgb 10.8 g/dL (13.6-17.9) L 12/08/24 19: Hct 33.5 % (39.6-49.0) L 12/08/24 19: MCV 83.6 fL (80-100) 12/08/24 19:28 MCH 27.0 pg (27.0-35.0) 12/08/24 19:28 MCHC 32.3 g/dL (32.0-36.0) 12/08/24 19:28 RDW 19.5 % (12.1-15.2) H 12/08/24 19:28 Plt Count 189 thou/uL (152-406) 12/08/24 19:28 MPV 8.3 fL (7.6-11.3) 12/08/24 19:28 Neutrophils % 75.8 % (41.7-73.7) H 12/08/24 19: Lymphocytes % 12.5 % (15.3-44.8) L 12/08/24 19: Monocytes % 10.2 % (3.3-12.3) 12/08/24 19: Eosinophils % 0.7 % (0-4.4) 12/08/24 19: Basophils % 0.8 % (0-1.3) 12/08/24 19: Absolute Neutrophils 6.3 K/uL (1.8-8.0) 12/08/24 19: Absolute Lymphocytes 1.0 K/uL (0.7-4.9) 12/08/24 19: Absolute Monocytes 0.8 K/uL (0.1-1.3) 12/08/24: Absolute Eosinophils 0.1 K/uL (0-0.5) 12/08/24: Absolute Basophils 0.1 K/uL (0-0.5) 12/08/24 19: PT 12.6 SECONDS (10-13.0) 12/08/24 19: INR 1.11 12/08/24 19: APTT 31.8 SECONDS (27.2-37.4) 12/08/24 19:28 Sodium 142 mEq/L (136-145) 12/08/24 19: Potassium 2.5 mEq/L (3.5-5.1) L* 12/08/24 19: Chloride 108 mEq/L (98-107) H 12/08/24 19: Carbon Dioxide 26 mEq/L (21-32) 12/08/24 19: Anion Gap 10.5 mEq/L (5.0-15.0) 12/08/24 19: BUN 33 mg/dL (7-18) H 12/08/24 19:28 Creatinine 1.17 mg/dL (0.70-1.30) 12/08/24 19: Est GFR (CKD-EPI) 68 ml/min (=/>90) L 12/08/24 19:28 Glucose 211 mg/dL (74-106) H 12/08/24 19:28 Lactic Acid 2.1 mmol/L (0.4-2.0) H* 12/08/24 22:39 Calcium 9.0 mg/dL (8.5-10.1) 12/08/24 19:28 Magnesium 2.5 mg/dL (1.6-2.4) H 12/08/24 19:28 Total Bilirubin 0.4 mg/dL (0.2-1.0) 12/08/24 19: Direct Bilirubin < 0.2 mg/dL (0-0.2) 12/08/24 19: Indirect Bilirubin 0.2 mg/dL (0.2-0.8) 12/08/24 19:28 AST < 10 U/L (15-37) L 12/08/24 19:28 ALT < 14 U/L (16-61) L 12/08/24 19: Alkaline Phosphatase 64 U/L (45-117) 12/08/24 19: Troponin I High Sens 11.7 pg/mL (<58.9) 12/08/24 19:28 Serum Total Protein 6.8 g/dL (6.4-8.2) 12/08/24 19: Albumin 2.8 g/dL (3.4-5.0) L 12/08/24 19:28 Globulin 4.0 g/dL (2.3-3.5) H 12/08/24 19:28 Albumin/Globulin Ratio 0.7 (1.1-1.8) L 12/08/24 19:28 Assessment And Plan - Plan 1. Patient with known history of critical limb threatening ischemia with poorly healing wound 2. CTA demonstrates patent popliteal artery stent, with patent peroneal artery. There is re-occlusion of the anterior tibial and posterior tibial arteries, despite angioplasty 1 month ago. The GRISEL and INTELLECTUAL PROPERTY LEGAL ASSISTANT are occluded from their origins downwards. 3. I have discussed with the daughter that from the vascular standpoint, I do not believe that we can perform any other interventions given rapid restenosis of the tibial arteries. 4. Patient will likely need BKA
[2024-12-11] MEDS ORDERED: levETIRAcetam 500 MG/5 ML OSYR PO SCH (21:00)
[2024-12-11] MEDS: DIVALPROEX NA 125 MG CAP PO SCH (22:17)
[2024-12-11] MEDS: levETIRAcetam 500 MG/5 ML OSYR PO SCH (22:17)
[2024-12-11] MEDS: ARIPiprazole 5 MG TAB PO SCH (22:17)
[2024-12-11] MEDS: ATORVASTATIN 40 MG TAB PO SCH (22:17)
[2024-12-12] MEDS: HYDROCODONE/APAP 5/325 MG TAB PO PRN (01:05)
[2024-12-12] MEDS: CLOPIDOGREL 75 MG TABLET PO SCH (08:21)
[2024-12-12] MEDS: GABAPENTIN 100 MG CAP PO SCH (08:21)
[2024-12-12 09:35] LABS: Absolute Basophils 0.1 K/uL (0-0.5); Absolute Eosinophils 0.2 K/uL (0-0.5); Absolute Lymphocytes (CBC) 1.2 K/uL (0.7-4.9); Absolute Monocytes 0.9 K/uL (0.1-1.3); Absolute Neutrophil 4.8 K/uL (1.8-8.0); Basophils % 1.3 % (0-1.3); Eosinophils % 2.3 % (0-4.4); Hematocrit 35.3 % (39.6-49.0); Hemoglobin 11.8 g/dL (13.6-17.9); Lymphocytes % 16.6 % (15.3-44.8); MCH 27.3 pg (27.0-35.0); MCHC 33.3 g/dL (32.0-36.0); MPV 7.5 fL (7.6-11.3); Monocytes % 12.8 % (3.3-12.3); Nucleated Red Blood Cells % 0.1 % (0-0); Platelets 200 thou/uL (152-406); Red Cell Distribution Width 19.1 % (12.1-15.2)
[2024-12-12 10:02] LABS: Albumin 2.7 g/dL (3.4-5.0); Albumin/Globulin Ratio 0.8 (1.1-1.8); Alkaline Phosphatase 58 U/L (45-117); Anion Gap 8.7 mEq/L (5.0-15.0); BUN Blood Urea Nitrogen 5 mg/dL (7-18); Bicarbonate 30 mEq/L (21-32); Bilirubin Total 0.8 mg/dL (0.2-1.0); Globulin 3.5 g/dL (2.3-3.5); Glomerular Filtration Rate 102 ml/min (=/>90); Glucose Level 202 mg/dL (74-106); Magnesium 1.9 mg/dL (1.6-2.4); Potassium 2.7 mEq/L (3.5-5.1); Protein, Total 6.2 g/dL (6.4-8.2); Sodium Level 138 mEq/L (136-145)
[2024-12-12 10:10] LABS: AST/SGOT < 10 U/L (15-37)
[2024-12-12 10:11] LABS: ALT/SGPT < 14 U/L (16-61)
--- NOTE | 2024-12-12 11:25 | P.PN ---
Date of Service: 12/12/24 Subjective: no acute events overnight patient intermittently gets upset/frustrated of being in bed and in hospital yells out wanting to go home ROS: 10 point ROS as noted above, otherwise negative Physical Exam: GEN: Alert, oriented, NAD CV: Regular rate and rhythm, no edema Pulm: Nonlabored respirations on room air, clear bilaterally Integumentary: wound with dressing in place Problem List: Acute encephalopathy Concern for infected right foot wound Critical Right popliteal stenosis s/p balloon angioplasty (10/16) Moderate PVD Right Lower Extremity, now s/p partial ray amputation of Right great toe (10/16) Hypernatremia Hypokalemia [place] syndrome Hypertension Hyperlipidemia Hypothyroidism Dementia Seizure disorder IDDM2 Hx of CAD s/p CABG 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 BP initially 90/50 on EMS arrival. Improved to 120s en route to ER. Right foot post surgical site concerning for infection. Patient with multiple recent hospitalization for poor healing wound. Underwent angioplasty and eventually right great toe partial amputation in September 2024. Most recently underwent I&D on 11/15/[address] Flores. 1 wound culture grew E. coli ESBL however surgical wound culture grew near pansensitive E. coli and was discharged with Bactrim/Cefdinir. Dr. Flores consulted empiric rocephin / vanc (12/09-) lactic acid improved 2.1 -> 1.6 Mentation improved ~baseline. 12/09 - CTA lower extremity: [id number] multifocal atherosclerotic plaquing of the SFA. Patent popliteal artery stent with single vessel runoff to the foot. Dr Henry consulted 12/10 - continue medical management, empiric abx for now local wound care with santyl and nystatin afebrile, no leukocytosis 12/11 - Dr. Henry recommending consideration for BKA given re-occlusion despite angioplasty 1 month a ago. Will discuss further with patient/family and reach out to Dr. Flores for further input. ativan 1mg x1 for agitation Code wahl called x2 for agitation 12/12 - intermittently yells out - due to frustration and wanting to go home calmed down when I went in room and spoke with him. would prefer to avoid sedating medications unless absolute need - at times redirectable / calms when chatting, and reportedly at other times he does get quite agitated Hypernatremia Hypokalemia 12/10 - potassium 2.4 s/p 3 bags KCl s/p K-lyte 050 meq x1 repeat potassium 3.1 in afternoon Monitor and replete electrolytes as needed. Daily labs [place] syndrome Patient with chronic colonic dilatation. Continue supportive care. 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
--- NOTE | 2024-12-12 16:16 | CON ---
Date of Consultation: 12/09/2024 Brief History Of Present Illness: The patient is a 69-year-old male with significant dementia, known to me from previous interactions and interactions with his medical power of employee benefits attorney, who is his milagrosShakila alfaro. He is a skilled nursing resident. He has been admitted several times for poorly healed surgical wounds as he gets debrided, improves, ultimately goes to the skilled nursing. I have spoken t o his daughter who states his wound care is suboptimal in these locations as she had discussed this o n several occasions, but has had decreased compliance because of which she states is refusal of the s taff to take over his wound care. We have called the skilled nursing on several occasions and attempted to speak with a Wound Care doctor/medical doctors who were in charge of his care, but have been unsu ccessful at receiving any correspondence from them regarding this patient's care. As such, I tried t o have the patient transferred to my clinic for intermittent wound care, but he has never been able t o actually be seen in my clinic. Therefore, all my interactions are related through his admissions t o the hospital and with contact to his family medical power of employee benefits attorney. As such, he continues to mayo ve this recurring episodes of worsening wound infection after leaving the hospital, and as such, he i s back with the same issue at this point. He has a poorly healed surgical wound, specifically at the site of the great toe amputation site on the right great toe. I spoke with Dr. German, who attempted to improve the flow to this area as he has significant peripheral arterial disease and had a poplitea l stent placed. Popliteal stent was placed in addition to PCI interventions on 2 of the 3 vessels b eyond the trifurcation to improve blood flow to allow for healing of this area. I have discussed the case with Dr. German, who is his endovascular specialist who believes that if we can maintain patency of these vessels, he has a reasonable chance of salvaging the foot. However, if these continued to g o down and are resistant to treatment, we have discussed the option of [id number] amputation with the patient's power of employee benefits attorney, Shakila, as well as the patient. The patient is now admitted for o ngoing evaluation for the above issue. He has other medical issues which need to be managed prior to surgical intervention. Past Medical History: CVA with residual right-sided weakness, depressive disorder, gallstones, diabe tic retinopathy, depression, thyroid disorder, seizures, coronary artery disease, diabetes, schizophr enia, sleep disturbances, and dementia. Past Surgical History: Includes CABG, thyroidectomy, right great toe amputation, bilateral lower ext remity stents and multiple PCI interventions of the right lower extremity to attempt to improve flow. Allergies: NO KNOWN DRUG ALLERGIES. Home Medications: Include atorvastatin, Plavix, Lasix, Lantus, Tylenol, Norvasc, Abilify, Depakote, Neurontin, omeprazole, KCl, rivastigmine, sertraline, Boniva, Keppra, lactulose, levothyroxine, NovoL og, lactobacillus, Lopressor, simethicone, Dulcolax, [place], intermittent Santyl, ProSource NoCarb Liq uid packs, and Bactrim. Review of Systems: The patient is unable to give a 10-point review of systems due to his dementia. Information is [facility] obtained from chart regarding this. Social History: There is no history of alcohol, smoking, or drug abuse by report. Physical Examination: General: At the time of my examination, he is awake and alert, but confused and pleasantly demented during my examination. HEENT: Otherwise, normocephalic. Sclerae anicteric. Mucous membranes are moist. Pharynx clear. Neck: Supple without JVD. Chest: Normal expansion and excursion. Cardiovascular: Regular rate and rhythm. Pulmonary: Clear to auscultation bilaterally. Extremities: Focused examination of lower extremity shows an open right dry wound of the right great toe amputation site. There is no necrosis, no drainage, no cellulitis, no other concerning findings , but there is essentially no change and no improvement from previous exams. The area appears somewh at dry as it has been devascularized with a very dry appearance overall consistent with devasculariza tion, and as such, there seems to be no improvement of this area. Laboratory Data: Revealed a white blood cell count of 8.3, hemoglobin is 10.8, hematocrit of 33.5, p latelet count was 189. Sodium is 142, potassium 2.5, chloride 108, carbon dioxide 26, BUN 33, creati nine 1.17, glucose is 211. Lactic acid was 2.1. His magnesium was 2.5. AST less than 10, ALT less than 14, bilirubin was 0.4. He had imaging performed as well which included a foot x-ray on 12/08 of ficially read as no osseous abnormalities. Stable findings as above. There is stable alignment sequ elae of first ray amputation near the first metatarsal base and the fifth digit amputation at the lev el of the metatarsophalangeal articulation. No evidence of arthropathy. Moderate midfoot degenerati ve changes. Assessment And Plan: This is a 69-year-old man known to me with severe peripheral arterial disease t o the right lower extremity despite multiple interventions who now comes back with a stable chronic n onhealing wound from the right great toe amputation site. 1. IV fluid hydration. 2. Antibiotic coverage. 3. Local wound care. 4. Medical optimization and I will speak with Dr. German regarding the possibilities of having PCI inte rvention to see if we can salvage the lower extremity in an attempt to have limb salvage of this area . Should that be unsuccessful, Dr. German feels that he is not a good candidate for any endovascular o r bypass intervention to restore flow to this area and limb salvage be achieved. I have discussed al ready with the patient's medical power of employee benefits attorney as well as the patient the possibility of a below- the-knee amputation including, but not limited to, bleeding, infection, damage to surrounding tissues , need for further operation and procedures, phantom limb pain, other unforeseen complications in the perioperative period including but not limited to, heart attack, blood clots, strokes, or other unfo reseen complications in the perioperative period. The patient agrees at this point. However, josephine han's medical power of employee benefits attorney would like to discuss with family members before she would make the fin al determination and discussed the case with Dr. German personally before she makes a decision about an y surgical intervention, which we agree and additionally he needs medical optimization given his medi leonela comorbidities. As such, we will standby in preparation for possible [id number] amputation pe nding the patient's family medical power of employee benefits attorney's decision. Thank you for this interesting consult. LILIA/INGRID Voice ID: [id number] Report ID: [id number]
[2024-12-12] MEDS: POTASSIUM 25 MEQ EFFERV TAB PO ONE (20:52)
[2024-12-13 06:37] LABS: Albumin 2.3 g/dL (3.4-5.0); Anion Gap 5.9 mEq/L (5.0-15.0); Magnesium 2.1 mg/dL (1.6-2.4); Phosphorus 2.4 mg/dL (2.5-4.9); Potassium 2.9 mEq/L (3.5-5.1)
[2024-12-13] MEDS: SERTRALINE HCL 50 MG TAB PO SCH (09:59)
[2024-12-13] MEDS: RIVASTIGMINE TARTRATE 1.5 MG PO SCH (09:59)
--- NOTE | 2024-12-13 12:04 | P.PN ---
Date of Service: 12/13/24 Subjective: no acute events overnight patient intermittently upset Physical Exam: GEN: Alert, oriented, NAD CV: Regular rate and rhythm, no edema Pulm: Nonlabored respirations on room air, clear bilaterally Integumentary: wound with dressing in place Problem List: Acute encephalopathy Concern for infected right foot wound Critical Right popliteal stenosis s/p balloon angioplasty (10/16) Moderate PVD Right Lower Extremity, now s/p partial ray amputation of Right great toe (10/16) Hypernatremia Hypokalemia [place] syndrome Hypertension Hyperlipidemia Hypothyroidism Dementia Seizure disorder IDDM2 Hx of CAD s/p CABG 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 BP initially 90/50 on EMS arrival. Improved to 120s en route to ER. Right foot post surgical site concerning for infection. Patient with multiple recent hospitalization for poor healing wound. Underwent angioplasty and eventually right great toe partial amputation in September 2024. Most recently underwent I&D on 11/15/[address] Flores. 1 wound culture grew E. coli ESBL however surgical wound culture grew near pansensitive E. coli and was discharged with Bactrim/Cefdinir. Dr. Flores consulted empiric rocephin / vanc (12/09-) lactic acid improved 2.1 -> 1.6 Mentation improved ~baseline. 12/09 - CTA lower extremity: [id number] multifocal atherosclerotic plaquing of the SFA. Patent popliteal artery stent with single vessel runoff to the foot. Dr Henry consulted 12/10 - continue medical management, empiric abx for now local wound care with santyl and nystatin afebrile, no leukocytosis 12/11 - Dr. Henry recommending consideration for BKA given re-occlusion despite angioplasty 1 month a ago. ativan 1mg x1 for agitation Code wahl called x2 for agitation 12/12 - intermittently yells out - due to frustration and wanting to go home calmed down when I went in room and spoke with him. would prefer to avoid sedating medications unless absolute need - at times redirectable / calms when chatting, and reportedly at other times he does get quite agitated 12/13 - Dr. Flores agrees with BKA and will attempt to reach out to family; tentative would be Saturday zoloft added, home exelon resumed Hypernatremia Hypokalemia 12/10 - potassium 2.4 s/p 3 bags KCl s/p K-lyte 050 meq x1 repeat potassium 3.1 in afternoon Monitor and replete electrolytes as needed. 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 Continue supportive care. 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
[2024-12-13] MEDS: POTASSIUM 25 MEQ EFFERV TAB PO ONE (15:55)
[2024-12-13] MEDS: HYDROCODONE/APAP 5/325 MG TAB PO ONE (21:16)
[2024-12-14] MEDS: LEVOTHYROXINE SOD 0.125 MG TAB PO SCH (04:39)
[2024-12-14 07:39] LABS: Hematocrit 28.8 % (39.6-49.0); Hemoglobin 9.6 g/dL (13.6-17.9); MCH 27.4 pg (27.0-35.0); MCHC 33.4 g/dL (32.0-36.0); MPV 7.4 fL (7.6-11.3); Platelets 183 thou/uL (152-406); RBC Red Blood Cell Count 3.52 M/uL (4.33-5.43); Red Cell Distribution Width 18.9 % (12.1-15.2)
[2024-12-14 07:52] LABS: Albumin 2.3 g/dL (3.4-5.0); Anion Gap 7.5 mEq/L (5.0-15.0); Magnesium 2.1 mg/dL (1.6-2.4); Phosphorus 2.3 mg/dL (2.5-4.9)
[2024-12-14 07:55] LABS: Potassium 2.5 mEq/L (3.5-5.1)
--- NOTE | 2024-12-14 09:01 | P.PN ---
Date of Service: 12/14/24 Subjective: agreeable to BKA tentative plan for surgery tomorrow no acute events overnight afebrile Physical Exam: GEN: Alert, oriented, NAD CV: Regular rate and rhythm, no edema Pulm: Nonlabored respirations on room air, clear bilaterally Integumentary: wound with dressing in place Problem List: Acute encephalopathy Concern for infected right foot wound Critical Right popliteal stenosis s/p balloon angioplasty (10/16) Moderate PVD Right Lower Extremity, now s/p partial ray amputation of Right great toe (10/16) Hypernatremia Hypokalemia [place] syndrome Hypertension Hyperlipidemia Hypothyroidism Dementia Seizure disorder IDDM2 Hx of CAD s/p CABG 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 BP initially 90/50 on EMS arrival. Improved to 120s en route to ER. Right foot post surgical site concerning for infection. Patient with multiple recent hospitalization for poor healing wound. Underwent angioplasty and eventually right great toe partial amputation in September 2024. Most recently underwent I&D on 11/15/[address] Flores. 1 wound culture grew E. coli ESBL however surgical wound culture grew near pansensitive E. coli and was discharged with Bactrim/Cefdinir. 12/09 - CTA lower extremity: [id number] multifocal atherosclerotic plaquing of the SFA. Patent popliteal artery stent with single vessel runoff to the foot. Dr Henry consulted empiric rocephin / vanc (12/09-) Mentation improved ~baseline. 12/10 - continue medical management, empiric abx for now local wound care with santyl and nystatin 12/11 - Dr. Henry recommending consideration for BKA given re-occlusion despite angioplasty 1 month a ago. ativan 1mg x1 for agitation Code wahl called x2 for agitation 12/12 - intermittently yells out - due to frustration and wanting to go home calmed down when I went in room and spoke with him. would prefer to avoid sedating medications unless absolute need - at times re directable / calms when chatting, and reportedly at other times he does get quite agitated 12/13 - Dr. Flores agrees with BKA and will attempt to reach out to family; tentative would be Saturday zoloft added, home exelon resumed 12/14 - Patient/family agreeable to BKA. Tentative plan for surgery tomorrow 12/15. no acute events overnight Hypernatremia Hypokalemia 12/10 - potassium 2.4 s/p 3 bags KCl s/p K-lyte 050 meq x1 repeat potassium 3.1 in afternoon 12/14 - Potassium 2.5 s/p 3 bags KCl repeat potassium in afternoon Monitor and replete electrolytes as needed. Daily labs [place] syndrome Patient with chronic colonic dilatation. Continue supportive care. 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 Time Spent Managing Pts Care (In Minutes): 45
[2024-12-14] MEDS: KCL 20 MEQ/100 mL IVPB 20 MEQ/100 ML BAG IV SCH (09:48)
[2024-12-14] MEDS: POTASS/SODIUM PHOSPHATE 1 PKT POWD.PACK PO SCH (11:36)
[2024-12-14] MEDS: NA CHLORIDE 0.9% 250 ML ONE (13:08)
[2024-12-14] MEDS: AMINO ACIDS/PROTEIN HYDROLYS 30 ML LIQUID.PKT PO SCH (20:15)
[2024-12-14] MEDS: QUETIAPINE 25 MG TAB PO ONE (21:45)
[2024-12-14] MEDS: HALOPERIDOL LACT 5 MG/ML INJ IV ONE (22:07)
[2024-12-15] MEDS: NA CHLORIDE 0.9% 250 ML ONE ×3 (00:36→05:14)
[2024-12-15] MEDS: KCL 20 MEQ/100 mL IVPB 20 MEQ/100 ML BAG IV SCH ×2 (00:58→18:27)
[2024-12-15] MEDS ORDERED: KCL 20 MEQ/100 mL IVPB 20 MEQ/100 ML BAG IV SCH (01:00)
[2024-12-15 09:30] LABS: Hematocrit 28.8 % (39.6-49.0); Hemoglobin 9.5 g/dL (13.6-17.9); MCH 27.4 pg (27.0-35.0); MCHC 33.1 g/dL (32.0-36.0); MCV 82.8 fL (80-100); MPV 6.8 fL (7.6-11.3); Platelets 155 thou/uL (152-406); RBC Red Blood Cell Count 3.48 M/uL (4.33-5.43); Red Cell Distribution Width 18.9 % (12.1-15.2)
[2024-12-15] MEDS: NA CHLORIDE 0.9% 1,000 ML ONE (11:01)
[2024-12-15] MEDS: LIDOCAINE 1% MPF 5 ML VIAL ONE (11:22)
[2024-12-15] MEDS: EPINEPHRINE 1 MG/ML VIAL ONE (11:22)
[2024-12-15] MEDS: BUPIVACAINE 0.5% PF 10 ML VIAL ONE (11:23)
[2024-12-15] MEDS: dexAMETHasone 4 MG/ML VIAL ONE (11:23)
[2024-12-15] MEDS: propofoL 200 MG/20 ML VIAL IV ONE (11:23)
[2024-12-15 11:25] LABS: Anion Gap 7.2 mEq/L (5.0-15.0); Phosphorus 3.7 mg/dL (2.5-4.9); Potassium 3.2 mEq/L (3.5-5.1)
[2024-12-15] MEDS: LIDOCAINE HCL/EPINEPHRINE 20 ML MDV ONE (12:36)
[2024-12-15] MEDS ORDERED: Phenylephrine HCl 10 MG/ML 1 ML VIAL ONE (13:11)
[2024-12-15] MEDS ORDERED: EPHEDRINE SULF 50 MG/ML VIAL ONE (13:12)
[2024-12-15] MEDS ORDERED: dexAMETHasone 4 MG/ML VIAL ONE (13:55)
[2024-12-15] MEDS ORDERED: ONDANSETRON 4 MG/2 ML VIAL ONE (13:55)
[2024-12-15] MEDS: BUPIVACAINE 0.25% PF 10 ML VIAL ONE (14:08)
--- NOTE | 2024-12-15 14:35 | P.OP ---
Preoperative diagnosis: RIGHT Leg Infection / Severe Peripheral Arterial Disease Postoperative diagnosis: RIGHT Leg Infection / Severe Peripheral Arterial Disease Primary procedure: RIGHT Below the Knee Amputation Anesthesia: Regional + MAC Estimated blood loss: <20cc Specimen: RIGHT Leg Findings: Severe PAD noted, arterial plaques Complications: None Drain(s): RATNA drain (10 mm Flat RATNA) Transferred to: Recovery Room Condition: Good
--- NOTE | 2024-12-15 16:40 | P.PN ---
Subjective Date of Service: 12/15/24 Chief Complaint: Nonhealing postsurgical wound Status post left BKA today. No recorded fever. Physical Examination - Vital Signs Temperature: 97.8 F Blood Pressure: 115/57 Pulse: 82 Respirations: 18 Pulse Ox (%): 95 Assessment And Plan - Plan Physical Exam: GEN: Alert, oriented, NAD CV: Regular rate and rhythm, no edema Pulm: Nonlabored respirations on room air, clear bilaterally Integumentary: wound with dressing in place Problem List: Acute encephalopathy Concern for infected right foot wound Critical Right popliteal stenosis s/p balloon angioplasty (10/16) Moderate PVD Right Lower Extremity, now s/p partial ray amputation of Right great toe (10/16) Hypernatremia Hypokalemia [place] syndrome Hypertension Hyperlipidemia Hypothyroidism Dementia Seizure disorder IDDM2 Hx of CAD s/p CABG 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 Right foot post surgical site concerning for infection. Patient with multiple recent hospitalization for poor healing wound. Underwent angioplasty and eventually right great toe partial amputation in September 2024. Most recently underwent I&D on 11/15/[address] Flores. 1 wound culture grew E. coli ESBL however surgical wound culture grew near pansensitive E. coli and was discharged with Bactrim/Cefdinir. CTA lower extremity: [id number] multifocal atherosclerotic plaquing of the SFA. Patent popliteal artery stent with single vessel runoff to the foot. Vascular surgery Dr Henry consulted recommended BKA given reocclusion despite angioplasty 1 month ago Patient treated with IV Rocephin and vancomycin. Dr. Flores performed BKA Hypernatremia Hypokalemia 12/10 - potassium 2.4 s/p 3 bags KCl s/p K-lyte 050 meq x1 repeat potassium 3.1 in afternoon 12/14 - Potassium 2.5 s/p 3 bags KCl repeat potassium in afternoon Monitor and replete electrolytes as needed. Daily labs [place] syndrome Patient with chronic colonic dilatation. Continue supportive care. Monitor and optimize electrolytes. 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
[2024-12-16] MEDS: HALOPERIDOL LACT 5 MG/ML INJ IV ONE (00:38)
[2024-12-16] MEDS: NA CHLORIDE 0.9% 250 ML ONE (00:39)
--- NOTE | 2024-12-16 01:08 | OP ---
Date of Procedure: 12/15/2024 Surgeon: Mc Flores MD, Preoperative Diagnosis: Right leg chronic infection/severe peripheral arterial disease. Postoperative Diagnosis: Right leg chronic infection/severe peripheral arterial disease. Procedure Performed: Right below-knee amputation. Anesthesia: Regional plus MAC. Estimated Fluid Loss: 20 cc. Specimen: Right lower extremity. Findings: Severe peripheral arterial disease noted and arterial plaques appreciated. Complications: None. Drains: RATNA drain, which was 10 mm flat RATNA drain placed. The patient was transferred to [facility] in good condition. Brief History Of Present Illness: The patient is a 69-year-old man known to me from previous surgery where he had debridement and amputation of his great toe. He also had endovascular interventions wi jose armando German, ultimately trying to revascularize his lower extremity to help improve flow. He had had several interventions including the level of the popliteal artery and down to below the trifurcation with several attempts to revascularize, improve flow of this area; however, these were transient and was reduced to single-vessel flow with continued worsening peripheral arterial disease despite attem pts to salvage the arterial supply. At this point, patient was deemed appropriate for operative inte rvention and below the knee amputation. Therefore, I discussed the risks, benefits, and alternatives with the patient's family. We had tried and failed limb salvage and we opted to proceed with a righ t below the knee amputation. The patient was therefore deemed appropriate. Procedure In Detail: After informed consent was obtained, patient was prepped and draped in the usua l sterile fashion. After adequate anesthesia was achieved, I demarcated the area below the tibial tu berosity several centimeters below the tibial tuberosity and demarcated the area with a 2/3 flap base d on the gastrocnemius muscle posterior flap orientation. After this area was demarcated appropriate ly, I placed a tourniquet on after using the Esmarch to exsanguinate the leg. After the leg was exsa nguinated and the tourniquet was applied, I made an incision overlying the anterior compartment follo wing down the lateral aspect of the demarcated area, which was previously marked. At this point, I p roceeded to cut down through the anterior compartment tissues and muscles using careful meticulous el ectrocautery dissection exposing the tibia. All the tibial tissues were cleared of muscle and associ ated ligamentous structures using a combination of blunt dissection with periosteal elevator and elec trocautery. At this point, the tibia was swept clean for several centimeters. I noted area of brent cation to be transected. I then opened the interosseous membrane at this point and dissected down to the fibula as well. The fibula was circumferentially cleared after going through the lateral compar tment, medial compartments, and deep compartments to allow for mobilization of the vascular pedicles of the anterior, posterior, and peroneal neurovascular structures. All of these were individually is olated. I and isolated the anterior and posterior tibial arteries as well as the anterior and posterior tibial veins. These were individually ligated with suture ligature of a 3-0 Prolene ramos ture and the distal stump was sealed with the LigaSure device. The same was true of the venous side of these vessels. The peroneal neurovascular bundle was as well and in a similar fashion w as isolated on the arterial venous side. The arterial vessel was individually ligated using the same 3-0 Prolene suture and the distal aspect of this was sealed using the LigaSure device as well. The venous side was then approached in a similar fashion. I then pulled back all 3 nervous structures, b ringing them into the surgical field, I then dissected them back after injecting them with local to r etract beyond the proposed transection of the bone. At this point, I used a bone saw to saw through the anterior tibia approach bevelling the anterior aspect of it with the bone saw. After tissue plan e was completed, I then did the same to the fibula isolating several centimeters higher than the reynoso section point of the tibia. At this point, I beveled the edges using rasp to smooth out and bevel th e edges of both the tibia and fibula. The area was copiously irrigated at this point and the tourniq uet was taken down. Tourniquet time was 37 minutes in total. I then proceeded to inspect for any bl eeding. There was minimal venous hemostasis required for the most part. On the posterior flap, thi s was either ligated with 3-0 Vicryl sutures or with the LigaSure device. After this was completed, based on the gastrocnemius flap, I brought up the gastrocnemius flap and began to partially reapproxi mate it to the anterior fascia after the stump was completely irrigated multiple times and good hemos tasis was achieved. After I reapproximated several sutures from the cast gastrocnemius/Achilles tend on remnant to the anterior fascia over the tibia, I then placed a RATNA drain and through a separate sta b incision on the lateral aspect and brought it down after sizing appropriately into the posterior as pect of the tibia between the tibia and fibula. At this point, the remaining fascial planes were brigido pproximated using 2-0 Vicryl suture in an interrupted fashion. The area was copiously irrigated once again. A RATNA drain stitch was then placed, which was a 3-0 nylon suture and I then reapproximated th e skin level after irrigating once again with interrupted nikolas and a sterile dressing was placed o camilo top as well as the knee immobilizer. The patient tolerated the procedure well without incident o r complication and transferred to PACU in good condition. All counts were correct at the end of the case. TK/MODL Voice ID: [id number] Report ID: [id number]
[2024-12-16 09:09] LABS: Absolute Basophils 0.1 K/uL (0-0.5); Absolute Lymphocytes (CBC) 0.7 K/uL (0.7-4.9); Absolute Monocytes 0.8 K/uL (0.1-1.3); Absolute Neutrophil 9.9 K/uL (1.8-8.0); Basophils % 0.5 % (0-1.3); Hemoglobin 8.9 g/dL (13.6-17.9); Lymphocytes % 6.4 % (15.3-44.8); MCH 27.1 pg (27.0-35.0); MCHC 32.8 g/dL (32.0-36.0); MCV 82.5 fL (80-100); MPV 7.5 fL (7.6-11.3); Monocytes % 6.6 % (3.3-12.3); Neutrophils % 86.5 % (41.7-73.7); Platelets 195 thou/uL (152-406); RBC Red Blood Cell Count 3.27 M/uL (4.33-5.43); Red Cell Distribution Width 19.1 % (12.1-15.2)
[2024-12-16 09:44] LABS: Blood Morphology Comment NOT SEEN (NOT SEEN); Platelet Estimate ADEQ; Platelets Clumped NOTED; White Blood Cell Scan OK (OK)
[2024-12-16] MEDS: POTASSIUM CL SA 10 MEQ TAB PO ONE (10:22)
[2024-12-16] MEDS ORDERED: HALOPERIDOL LACT 5 MG/ML INJ IV ONE (12:10)
--- NOTE | 2024-12-16 17:57 | P.PN ---
Subjective Date of Service: 12/16/24 Chief Complaint: Nonhealing postsurgical wound Status post left BKA 12/14 No recorded fever. Patient is tolerating diet. Physical Examination - Vital Signs Temperature: 97.8 F Blood Pressure: 115/57 Pulse: 82 Respirations: 18 Pulse Ox (%): 95 Assessment And Plan - Plan Physical Exam: GEN: Alert, oriented, NAD CV: Regular rate and rhythm, no edema Pulm: Nonlabored respirations on room air, clear bilaterally Integumentary: wound with dressing in place Extremity: Left BKA with clean dressing and RATNA drain. 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 Right foot post surgical site concerning for infection. Patient with multiple recent hospitalization for poor healing wound. Underwent angioplasty and eventually right great toe partial amputation in September 2024. Most recently underwent I&D on 11/15/[address] Flores. 1 wound culture grew E. coli ESBL however surgical wound culture grew near pansensitive E. coli and was discharged with Bactrim/Cefdinir. CTA lower extremity: [id number] multifocal atherosclerotic plaquing of the SFA. Patent popliteal artery stent with single vessel runoff to the foot. Vascular surgery Dr Henry consulted recommended BKA given reocclusion despite angioplasty 1 month ago Patient treated with IV Rocephin and vancomycin. Dr. Flores performed BKA Hypernatremia Hypokalemia 12/10 - potassium 2.4 s/p 3 bags KCl s/p K-lyte 050 meq x1 repeat potassium 3.1 in afternoon 12/14 - Potassium 2.5 s/p 3 bags KCl repeat potassium in afternoon Monitor and replete electrolytes as needed. Daily labs [place] syndrome Patient with chronic colonic dilatation. Continue supportive care. Monitor and optimize electrolytes. 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 12/16 Pain is well-controlled He has no fever. Continue antibiotics for now. Aggressive blood sugar control. Monitor and optimize electrolytes. Replace potassium as needed. Dr. Flores anticipating discharge by tomorrow if labs unremarkable and vitals are stable.
[2024-12-16] MEDS ORDERED: VANCOMYCIN 2 GM in NA CHLORIDE 0.9% 500 ML IVPB SCH (20:00)
[2024-12-16] MEDS: VANCOMYCIN 2 GM in NA CHLORIDE 0.9% 500 ML IVPB SCH (20:53)
[2024-12-17 08:32] LABS: Absolute Basophils 0.1 K/uL (0-0.5); Absolute Eosinophils 0.1 K/uL (0-0.5); Absolute Lymphocytes (CBC) 0.5 K/uL (0.7-4.9); Absolute Monocytes 0.7 K/uL (0.1-1.3); Absolute Neutrophil 7.6 K/uL (1.8-8.0); Eosinophils % 0.9 % (0-4.4); Hematocrit 27.6 % (39.6-49.0); Hemoglobin 9.2 g/dL (13.6-17.9); Lymphocytes % 5.6 % (15.3-44.8); MCH 27.7 pg (27.0-35.0); MCHC 33.4 g/dL (32.0-36.0); MCV 83.2 fL (80-100); MPV 7.7 fL (7.6-11.3); Monocytes % 7.6 % (3.3-12.3); Neutrophils % 84.9 % (41.7-73.7); Platelets 173 thou/uL (152-406); RBC Red Blood Cell Count 3.32 M/uL (4.33-5.43); Red Cell Distribution Width 19.8 % (12.1-15.2)
[2024-12-17 09:16] LABS: Anion Gap 7.7 mEq/L (5.0-15.0); Potassium 2.7 mEq/L (3.5-5.1)
[2024-12-17] MEDS: KCL 20 MEQ/100 mL IVPB 20 MEQ/100 ML BAG IV SCH (10:59)
--- NOTE | 2024-12-17 12:48 | P.DS ---
Admission Date: 12/08/24 Discharge Date: 12/17/24 Disposition: TRANSFER TO [facility] Discharge Condition: FAIR Reason for Admission: Nonhealing postsurgical wound Brief History of Present Illness: Patient is a 69-year-old male known to this hospital facility. He has a history of dementia. He is a [facility] resident. He has been admitted several times for the poorly healing surgical wound, specifically at the site of right big toe amputation. He is known to general surgery, Dr. Fair. He is brought in this time for altered mental status. His wounds appeared infected. Patient has a history of peripheral vascular disease complicated by critical right popliteal stenosis which has been managed in the past with angioplasty and eventually right great toe partial amputation in September 2024. He has had other admission for wound cellulitis at the surgical site. He was last seen here November 15, 2024 and underwent debridement of chronic wound at the first metatarsal. Patient was treated with antibiotics and discharged. His wound culture at the time yielded ESBL E. coli. However, surgical wound culture yielded nearly pansensitive E. coli. Patient was discharged on Bactrim and cefdinir. Foot x-ray done did not show any acute osseous abnormality. Patient was hospitalized for further management. 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 Right foot post surgical site concerning for infection. Patient with multiple recent hospitalization for poor healing wound. Underwent angioplasty and eventually right great toe partial amputation in September 2024. Most recently underwent I&D on 11/15/[address] Flores. 1 wound culture grew E. coli ESBL however surgical wound culture grew near pansensitive E. coli and was discharged with Bactrim/Cefdinir. CTA lower extremity: [id number] multifocal atherosclerotic plaquing of the SFA. Patent popliteal artery stent with single vessel runoff to the foot. Vascular surgery Dr Henry consulted recommended BKA given reocclusion despite angioplasty 1 month ago Patient treated with IV Rocephin and vancomycin. Dr. Flores performed BKA. 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 Continued supportive care with electrolyte optimization. IDDM2 Management accu-cheks, SSI. Home diabetic regimen resumed on discharge. 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 Vital Signs/Physical Exam: Temp Pulse Resp BP Pulse Ox 97.9 F 84 18 154/53 H 97 12/17/24 11:56 12/17/24 11:56 12/17/24 11:56 12/17/24 11:56 12/17/24 11:56 General: In no apparent distress HEENT: Mucous membr. moist/pink Neck: JVD not distended Respiratory: Clear to auscultation bilaterally, Normal air movement Cardiovascular: Regular rate/rhythm, Normal S1 S2 Gastrointestinal: Soft and benign, Non-distended, No tenderness Musculoskeletal: Other (Right BKA) Integumentary: No cyanosis Neurological: Normal speech, Normal strength at 5/5 x4 extr Laboratory Data at Discharge: WBC 9.00 thou/uL (4.3-10.9) 12/17/24 08:20 Hgb 9.2 g/dL (13.6-17.9) L 12/17/24 08:20 Hct 27.6 % (39.6-49.0) L 12/17/24 08:20 Plt Count 173 thou/uL (152-406) 12/17/24 08:20 PT 12.6 SECONDS (10-13.0) 12/08/24 19:28 INR 1.11 12/08/24 19:28 APTT 31.8 SECONDS (27.2-37.4) 12/08/24 19:28 Sodium 141 mEq/L (136-145) 12/17/24 08:20 Potassium 2.7 mEq/L (3.5-5.1) L 12/17/24 08:20 BUN 10 mg/dL (7-18) 12/17/24 08:20 Creatinine 0.60 mg/dL (0.70-1.30) L 12/17/24 08:20 Glucose 171 mg/dL (74-106) H 12/17/24 08:20 Phosphorus 3.7 mg/dL (2.5-4.9) 12/15/24 10:52 Magnesium 2.1 mg/dL (1.6-2.4) 12/14/24 07:13 Total Bilirubin 0.8 mg/dL (0.2-1.0) 12/12/24 09:24 AST < 10 U/L (15-37) L 12/12/24 09:24 ALT < 14 U/L (16-61) L 12/12/24 09:24 Alkaline Phosphatase 58 U/L (45-117) 12/12/24 09:24 Home Medications: Atorvastatin Calcium 40 mg PO BEDTIME 05/31/21 Clopidogrel Bisulfate [Plavix] 75 mg PO DAILY 05/31/21 Furosemide [Lasix] 20 mg PO DAILY 05/31/21 Insulin Glargine,Hum.rec.anlog [Lantus] 26 unit SQ BID 05/31/21 Acetaminophen [Tylenol] 650 mg PO Q4HP PRN 05/20/24 Amlodipine [Norvasc*] 5 mg PO DAILY 05/20/24 Aripiprazole [Abilify] 5 mg PO BEDTIME 05/20/24 Aspirin 325 mg PO DAILY 05/20/24 Divalproex [Depakote Sprinkle*] 4 cap PO BID 05/20/24 Gabapentin [Neurontin*] 100 mg PO DAILY 05/20/24 Omeprazole 20 mg PO DAILY 05/20/24 Potassium Chloride 20 meq PO DAILY 05/20/24 Rivastigmine Tartrate [Rivastigmine] 1.5 mg PO BID 05/20/24 Sertraline HCl 50 mg PO DAILY 05/20/24 Sitagliptin Phosphate [Januvia] 100 mg PO DAILY 05/20/24 Lactulose 30 ml PO Q12HP PRN 06/10/24 Levothyroxine Sodium 125 mcg PO 0600 06/10/24 Insuln Asp Prt/Insulin Aspart [Novolog Mix 70-30 Vial] See Protocol SQ BID 10/11/24 Lactobacillus Combination No.4 [Probiotic] 2 cap PO DAILY 10/11/24 Metoprolol Tartrate [Lopressor*] 25 mg PO BID 10/11/24 Simethicone [Gas Relief] 125 mg PO Q6HP PRN 10/11/24 Bisacodyl [Dulcolax*] 10 mg [place] DAILY PRN #0 supp 10/21/24 Collagenase [Santyl Ointment*] 1 appl TOP DAILY tube 10/21/24 Amino Acids/Protein Hydrolys [Prosource No Carb Liquid Pkt] 30 ml PO BID #60 packet 11/05/24 Cefdinir [Cefdinir*] 300 mg PO BID #20 cap 11/20/24 Collagenase [Santyl Ointment*] 1 appl TOP DAILY #0 gm 11/20/24 Amox/Clavulanate [Augmentin 875-125 Tab] 1 each PO BID #14 tab 12/17/24 Doxycycline Hyclate 100 mg PO BID #14 cap 12/17/24 Hydrocodone 5/APAP 325 [[place] 5/325*] 1 tab PO Q6H PRN #15 tab 12/17/24 levETIRAcetam [Keppra] 10 ml PO BID #600 ml 12/17/24 New Medications: Amox/Clavulanate [Augmentin 875-125 Tab] 1 each PO BID #14 tab Doxycycline Hyclate 100 mg PO BID #14 cap levETIRAcetam [Keppra] 10 ml PO BID #600 ml Hydrocodone 5/APAP 325 [[place] 5/325*] 1 tab PO Q6H PRN #15 tab PRN Reason: Pain Scale 5-7 (Moderate) Diet: ADA Activity: Fall precautions Followup: Mc Flores MD [ACTIVE - CAN ADMIT] - 1 Week Edilson Holman MD [Primary Care Provider] - Time spent managing pt's care (in minutes): 38
--- NOTE | 2024-12-17 15:39 | P.PN ---
Subjective Date of Service: 12/17/24 Chief Complaint: Nonhealing postsurgical wound Subjective: Improving (Patient has no complaints only has minimal pain in the BKA site.) Physical Examination - Vital Signs Temperature: 97.9 F Blood Pressure: 154/53 Pulse: 84 Respirations: 18 Pulse Ox (%): 97 - Physical Exam General: Alert, In no apparent distress, Cooperative, Confused Musculoskeletal: Other (BKA site is clean dry RATNA drain removed without issue flaps are pink and viable.) Assessment And Plan - Plan Patient is a 69-year-old male status post BKA. -Shelly to be removed in 14 days from day of surgery. -Continue dressing changes as described in postoperative orders. -Follow-up my office in 2 weeks. -Continue medical management per primary team.
--- NOTE | 2024-12-17 17:31 | P.PN ---
Subjective Date of Service: 12/17/24 Chief Complaint: Nonhealing postsurgical wound Status post left BKA 12/14 Patient has no new complain. He states his pain is well-controlled. No recorded fever. Physical Examination - Vital Signs Temperature: 98.0 F Blood Pressure: 162/73 Pulse: 85 Respirations: 18 Pulse Ox (%): 97 Assessment And Plan - Plan Physical Exam: GEN: Alert, oriented, NAD CV: Regular rate and rhythm, no edema Pulm: Nonlabored respirations on room air, clear bilaterally Extremity: Left BKA with clean dressing. 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 Right foot post surgical site concerning for infection. Patient with multiple recent hospitalization for poor healing wound. Underwent angioplasty and eventually right great toe partial amputation in September 2024. Most recently underwent I&D on 11/15/[address] Flores. 1 wound culture grew E. coli ESBL however surgical wound culture grew near pansensitive E. coli and was discharged with Bactrim/Cefdinir. CTA lower extremity: [id number] multifocal atherosclerotic plaquing of the SFA. Patent popliteal artery stent with single vessel runoff to the foot. Vascular surgery Dr Henry consulted recommended BKA given reocclusion despite angioplasty 1 month ago Patient treated with IV Rocephin and vancomycin. Dr. Flores performed BKA Hypernatremia Hypokalemia 12/10 - potassium 2.4 s/p 3 bags KCl s/p K-lyte 050 meq x1 repeat potassium 3.1 in afternoon 12/14 - Potassium 2.5 s/p 3 bags KCl repeat potassium in afternoon Monitor and replete electrolytes as needed. 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 Continue supportive care. Monitor and optimize electrolytes. 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 12/16 Pain is well-controlled He has no fever. Continue antibiotics for now. Aggressive blood sugar control. Monitor and optimize electrolytes. Replace potassium as needed. Dr. Flores anticipating discharge by tomorrow if labs unremarkable and vitals are stable. 12/17 RATNA drain removed today by surgery Dr. Flores Continue antibiotics for now. Replace hypokalemia IV and orally Monitor and optimize electrolytes Diet as tolerated Increase activity as tolerated.
[2024-12-17] MEDS: ACETAMINOPHEN 325 MG TABLET PO PRN (21:23)
[2024-12-18 06:52] LABS: Anion Gap 7.3 mEq/L (5.0-15.0)
[2024-12-18 07:03] LABS: Potassium 2.3 mEq/L (3.5-5.1)
[2024-12-18] MEDS: POTASSIUM CL SA 10 MEQ TAB PO ONE (08:14)
[2024-12-18] MEDS: KCL 20 MEQ/100 mL IVPB 20 MEQ/100 ML BAG IV SCH (08:15)
[2024-12-18] MEDS: NA CHLORIDE 0.9% 250 ML IV ONE (08:15)
[2024-12-18] MEDS ORDERED: POTASSIUM CL SA 10 MEQ TAB PO SCH (09:00)
[2024-12-18] MEDS: HYDROCODONE/APAP 5/325 MG TAB PO PRN (10:03)
[2024-12-18 13:59] LABS: Specific Gravity 1.029 (1.005-1.030); Sqamous Epithelial <5 /HPF (None Seen); Urine Bacteria None Seen /HPF (<20); Urine Bilirubin NEGATIVE (Negative); Urine Blood Negative (Negative); Urine Clarity Turbid (Clear); Urine Color Yellow (Yellow); Urine Culture Reflex Order NOT NEEDED; Urine Glucose 3+ (Negative); Urine Ketones 1+ (Negative); Urine Micro Reflex YN NO BILL MICROSCOPIC; Urine Mucus Slight /HPF (None Seen); Urine Nitrite NEGATIVE (Negative); Urine Protein TRACE (Negative); Urine RBC <5 /HPF (None Seen); Urine Urobilinogen Normal (Normal); Urine WBC <5 /HPF (<5)
[2024-12-18 14:22] LABS: Magnesium 1.8 mg/dL (1.6-2.4); Phosphorus 2.1 mg/dL (2.5-4.9); Potassium 3.4 mEq/L (3.5-5.1)
[2024-12-18 14:24] LABS: Thyroid Stimulating Hormone 31.5 uIU/mL (0.358-3.740)
--- NOTE | 2024-12-18 14:43 | RAD REPORT ---
EXAMINATION: US RETROPERITONEUM CLINICAL INDICATION: ckd TECHNIQUE: Real-time ultrasonography of the abdomen was performed. COMPARISON: CT 11/09/2024 FINDINGS: RIGHT KIDNEY: Right renal length measurement: 10 cm. Normal in echogenicity and size. No calculus, so lid mass or hydronephrosis. LEFT KIDNEY: Left renal length measurement: 10.8 cm. Normal in echogenicity and size. No calculus, so lid mass or hydronephrosis. ADDITIONAL FINDINGS: N/A IMPRESSION: No acute findings identified. No evidence of hydronephrosis.
--- NOTE | 2024-12-18 15:07 | P.PN ---
Subjective Date of Service: 12/18/24 Chief Complaint: Nonhealing postsurgical wound Status post left BKA 12/14 Nurse report patient has not trouble swallowing today and also reported patient had a couple of episodes of diarrhea from last night to this morning. No recorded fever. Physical Examination - Vital Signs Temperature: 98.1 F Blood Pressure: 149/73 Pulse: 92 Respirations: 18 Pulse Ox (%): 97 Assessment And Plan - Plan Physical Exam: GEN: Alert, oriented, NAD CV: Regular rate and rhythm, no edema Pulm: Nonlabored respirations on room air, clear bilaterally Extremity: Left BKA with clean dressing. 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 Right foot post surgical site concerning for infection. Patient with multiple recent hospitalization for poor healing wound. Underwent angioplasty and eventually right great toe partial amputation in September 2024. Most recently underwent I&D on 11/15/[address] Flores. 1 wound culture grew E. coli ESBL however surgical wound culture grew near pansensitive E. coli and was discharged with Bactrim/Cefdinir. CTA lower extremity: [id number] multifocal atherosclerotic plaquing of the SFA. Patent popliteal artery stent with single vessel runoff to the foot. Vascular surgery Dr Henry consulted recommended BKA given reocclusion despite angioplasty 1 month ago Patient treated with IV Rocephin and vancomycin. Dr. Flores performed BKA Hypernatremia Hypokalemia 12/10 - potassium 2.4 s/p 3 bags KCl s/p K-lyte 050 meq x1 repeat potassium 3.1 in afternoon 12/14 - Potassium 2.5 s/p 3 bags KCl repeat potassium in afternoon Monitor and replete electrolytes as needed. Daily labs [place] syndrome Patient with chronic colonic dilatation. Continue supportive care. Monitor and optimize electrolytes. 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 12/16 Pain is well-controlled He has no fever. Continue antibiotics for now. Aggressive blood sugar control. Monitor and optimize electrolytes. Replace potassium as needed. Dr. Flores anticipating discharge by tomorrow if labs unremarkable and vitals are stable. 12/17 RATNA drain removed today by surgery Dr. Flores Continue antibiotics for now. Replace hypokalemia IV and orally Monitor and optimize electrolytes Diet as tolerated Increase activity as tolerated. 12/18 Patient with a few episodes of diarrhea and recurrent hypokalemia. Hypokalemia likely related to the diarrhea. Nephrology consulted to evaluate for possible renal potassium losses. Diet modified to soft consistency after speech evaluation today Increase activity as tolerated. Monitor renal function and electrolytes.
[2024-12-18] MEDS: Magnesium Sulfate 2gm IVPB 2 G/50 ML BAG IV ONE (15:55)
[2024-12-18] MEDS: POTASSIUM PHOS IN 0.9 % NACL 15 MMOL/250 ML BAG IV ONE (17:30)
--- NOTE | 2024-12-18 23:21 | CON ---
Date of Consultation: 12/17/2024 Chief Complain: Hypokalemia. History Of Present Illness: The patient was admitted to the hospital on December 08 and he has histor y of nonhealing postsurgical wound. He was admitted for surgical wound complication, nonhealing woun ds. Nephrology is consulted for hypokalemia. The patient also was found to have hypernatremia. He has multiple medical problems including history of Naranjito syndrome, hypertension, hyperlipidemia, hy pothyroid, dementia, seizure disorder, insulin-dependent diabetes mellitus. He underwent angioplasty for critical right popliteal stenosis, status post balloon angioplasty. He has peripheral vascular disease; coronary artery disease, status post CABG; history of CVA; residual weakness; and dysphagia. He is admitted for poor healing surgical wounds, specifically at the site of the right big toe ampu tation. He was seen by Dr. Flores who was managing wound care. He also has peripheral vascular dis ease, complicated by critical right popliteal stenosis and this was managed in the past with angiopla sty. The patient was treated with antibiotics for the E coli ESBL infection. Surgical wound culture show pansensitive E coli. The patient was discharged on Bactrim and cefdinir. Nephrology is consul huey for hypokalemia. The patient has also hypophosphatemia. Magnesium level was checked and is pend ing. Review of Systems: The patient denies left-sided weakness acute encephalopathy. Concern for infected right foot wound. Critical right popliteal stenosis, status for angioplasty and on October 16, moderate PVD of lower extremity, status post partial ray amputation on the right great toe. On admission, patient had alt ered mental status, decreased responsiveness. He was treated for diabetic foot infection. Underwent incision and drainage. He has hypokalemia and this likely is related to Naranjito syndrome. Social History: Negative for tobacco, alcohol, and drug. Family History: Noncontributory. Physical Examination: General: The patient is awake, although he is lethargic. Answers few questions. Eyes: Anicteric sclerae. EOMI. Neck: Supple. No JVD. No bruits. Lungs: Clear to auscultation bilaterally. No wheezing. No rhonchi. Heart: S1, S2. No pericardial friction. Abdomen: Soft, benign, nontender. No rebound, no guarding. Extremities: Minimal edema. Impression And Plan: Hypokalemia. Continue replacement and monitor magnesium and phosphorus level. Adjust supplementation as needed. Plan is to check TSH, aldosterone, and plasma renin activity. Re nal ultrasound was ordered as well. The patient has multiple medical problems. Renal ultrasound did not show obstructive uropathy. Avoi d nephrotoxic medication. Continue potassium management according to the level. Overall prognosis i s poor. EB/MODL Voice ID: [id number] Report ID: [id number]
[2024-12-19] MEDS: HYDRALAZINE HCL 20 MG/ML VIAL IV PRN (05:31)
[2024-12-19 06:30] LABS: Absolute Eosinophils 0.1 K/uL (0-0.5); Absolute Lymphocytes (CBC) 0.6 K/uL (0.7-4.9); Absolute Monocytes 0.8 K/uL (0.1-1.3); Absolute Neutrophil 6.2 K/uL (1.8-8.0); Basophils % 0.6 % (0-1.3); Eosinophils % 1.7 % (0-4.4); Hemoglobin 9.7 g/dL (13.6-17.9); Lymphocytes % 7.5 % (15.3-44.8); MCH 28.1 pg (27.0-35.0); MCHC 34.5 g/dL (32.0-36.0); MCV 81.3 fL (80-100); Monocytes % 10.7 % (3.3-12.3); Neutrophils % 79.5 % (41.7-73.7); Platelets 182 thou/uL (152-406); RBC Red Blood Cell Count 3.44 M/uL (4.33-5.43); Red Cell Distribution Width 19.8 % (12.1-15.2)
[2024-12-19 06:40] LABS: Anion Gap 9.2 mEq/L (5.0-15.0); Magnesium 2.3 mg/dL (1.6-2.4); Phosphorus 2.4 mg/dL (2.5-4.9)
[2024-12-19 06:46] LABS: Potassium 2.2 mEq/L (3.5-5.1)
[2024-12-19] MEDS: KCL 20 MEQ/100 mL IVPB 20 MEQ/100 ML BAG IV SCH ×2 (07:34→17:37)
[2024-12-19] MEDS: POTASSIUM 25 MEQ EFFERV TAB PO ONE (09:10)
[2024-12-19 10:45] LABS: CDIFF INTERNAL NEG CONTROL White Background (WHITE BKGD); STOOL CONSISTENCY Liquid/Semi-Solid
[2024-12-19 10:46] LABS: C.diff Antigen/Toxin Ag neg : Tox neg (NEG : NEG)
--- NOTE | 2024-12-19 10:51 | PN ---
Date of Progress Note: 12/19/2024 Subjective: No overnight event. Had large bowel movement yesterday. His potassium is down to 2.2 t christiana. Abdomen distended. Order exploratory laparotomy. Objective: Vital Signs: Temperature 97.8, pulse rate 92, blood pressure 155/74. General: Awake, oriented times 1-2, not in distress. Neck: Supple. No elevated JVD. Heart: Regular rate and rhythm. Normal S1, S2. Chest: Clear to auscultation bilaterally. No rales or wheezes. Abdomen: Distended, nontender. Extremities: Right leg, no edema. Left leg, BKA. Laboratory Data: Sodium 140, potassium 2.2, creatinine 0.4. Medications: Include Abilify, Lipitor, Hydralazine, insulin, potassium chloride, Keppra, magnesium, and vancomycin. Assessment And Plan: 1. This is a 69-year-old man who was admitted for nonhealing postsurgical wound. The patient noticed to have persistent hypokalemia. The patient has bouts of diarrhea. Nephrology consulted for furthe r evaluation. 2. Persistent hypokalemia, likely due to diarrhea and poor oral intake. We will start the patient on Aldactone. Continue aggressive potassium supplementation. Monitor magnesium level. 3. Hypernatremia, resolved. Diet correction is fluid intake as tolerated. 4. Delmy syndrome. Continue aggressive potassium supplementation. 5. Diabetes mellitus. Continue insulin. 6. Hypertension. Patient currently not on hypertensive agents, on hydralazine as needed. We will st art the patient on Aldactone. 7. Right foot infection. Continue antibiotics. Monitor vancomycin level. Thanks for allowing me to participate in patient's care. Total time spent 55 minutes including docum entation, reviewing labs, and placing orders. CARLIN/INGRID Voice ID: [id number] Report ID: [id number]
[2024-12-19] MEDS: SPIRONOLACTONE 25 MG TABLET PO SCH (11:32)
--- NOTE | 2024-12-19 11:37 | RAD REPORT ---
EXAM: XR of the abdomen HISTORY: Abdominal pain Distension COMPARISON: 12/07/2024 CT study FINDINGS: XR of the abdomen shows a markedly distended colon with gas similar to comparative CT studi es.. No evidence of free intraperitoneal air. No suspicious calcifications are seen. The bones are unremarkable.
[2024-12-19] MEDS: POTASSIUM PHOS IN 0.9 % NACL 15 MMOL/250 ML BAG IV ONE (12:53)
[2024-12-19 13:38] LABS: UR PROTEIN 45.4 mg/dL (<11.9)
--- NOTE | 2024-12-19 14:59 | P.PN ---
Subjective Date of Service: 12/19/24 Chief Complaint: Nonhealing postsurgical wound Patient been experiencing intermittent diarrhea. He is tolerating soft diet Physical Examination - Vital Signs Temperature: 98 F Blood Pressure: 118/74 Pulse: 113 Respirations: 16 Pulse Ox (%): 98 Assessment And Plan - Plan Physical Exam: GEN: Alert, oriented, NAD CV: Regular rate and rhythm, no edema Pulm: Nonlabored respirations on room air, clear bilaterally Abdomen: Distended, nontender, normal bowel sounds. Extremity: Left BKA with clean dressing. 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 Right foot post surgical site concerning for infection. Patient with multiple recent hospitalization for poor healing wound. Underwent angioplasty and eventually right great toe partial amputation in September 2024. Most recently underwent I&D on 11/15/[address] Flores. 1 wound culture grew E. coli ESBL however surgical wound culture grew near pansensitive E. coli and was discharged with Bactrim/Cefdinir. CTA lower extremity: [id number] multifocal atherosclerotic plaquing of the SFA. Patent popliteal artery stent with single vessel runoff to the foot. Vascular surgery Dr Henry consulted recommended BKA given reocclusion despite angioplasty 1 month ago Patient treated with IV Rocephin and vancomycin. Dr. Flores performed BKA Hypernatremia Hypokalemia 12/10 - potassium 2.4 s/p 3 bags KCl s/p K-lyte 050 meq x1 repeat potassium 3.1 in afternoon 12/14 - Potassium 2.5 s/p 3 bags KCl repeat potassium in afternoon Monitor and replete electrolytes as needed. 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 Continue supportive care. Monitor and optimize electrolytes. 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 12/16 Pain is well-controlled He has no fever. Continue antibiotics for now. Aggressive blood sugar control. Monitor and optimize electrolytes. Replace potassium as needed. Dr. Flores anticipating discharge by tomorrow if labs unremarkable and vitals are stable. 12/17 RATNA drain removed today by surgery Dr. Flores Continue antibiotics for now. Replace hypokalemia IV and orally Monitor and optimize electrolytes Diet as tolerated Increase activity as tolerated. 12/18 Patient with a few episodes of diarrhea and recurrent hypokalemia. Hypokalemia likely related to the diarrhea. Nephrology consulted to evaluate for possible renal potassium losses. Diet modified to soft consistency after speech evaluation today Increase activity as tolerated. Monitor renal function and electrolytes. 12/19 Patient has refractory hypokalemia. Associated diarrhea. Nephrology is following and evaluating renal potassium loss Nephrology Dr. Marie started patient on Aldactone 24-hour urine potassium is pending Continue to replace potassium IV and orally Monitor BMP and electrolytes and replace as needed. Replace phosphorus and magnesium as needed. Increase activity as tolerated. PT consult.
[2024-12-19] MEDS: NA CHLORIDE 0.9% 500 ML ONE (19:26)
[2024-12-19] MEDS ORDERED: SPIRONOLACTONE 25 MG TABLET PO SCH (21:00)
[2024-12-19] MEDS: KCL 20 MEQ/100 mL IVPB 100 ML IV ONE (22:44)
[2024-12-20 10:11] LABS: Anion Gap 9.7 mEq/L (5.0-15.0); Magnesium 2.2 mg/dL (1.6-2.4); Phosphorus 2.3 mg/dL (2.5-4.9); Potassium 2.7 mEq/L (3.5-5.1)
[2024-12-20] MEDS: POTASSIUM 25 MEQ EFFERV TAB PO SCH (11:41)
[2024-12-20] MEDS: POTASSIUM PHOS IN 0.9 % NACL 15 MMOL/250 ML BAG IV ONE (12:27)
--- NOTE | 2024-12-20 17:01 | P.PN ---
Subjective Date of Service: 12/20/24 Chief Complaint: Nonhealing postsurgical wound Patient continued to experience intermittent diarrhea. He is tolerating soft diet. Potassium level is low today. Physical Examination - Vital Signs Temperature: 98.3 F Blood Pressure: 155/67 Pulse: 87 Respirations: 19 Pulse Ox (%): 99 Assessment And Plan - Plan Physical Exam: GEN: Alert, oriented, NAD CV: Regular rate and rhythm, no edema Pulm: Nonlabored respirations on room air, clear bilaterally Abdomen: Abdomen is less distended today, nontender, normal bowel sounds. Extremity: Left BKA with clean dressing. 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 Right foot post surgical site concerning for infection. Patient with multiple recent hospitalization for poor healing wound. Underwent angioplasty and eventually right great toe partial amputation in September 2024. Most recently underwent I&D on 11/15/[address] Flores. 1 wound culture grew E. coli ESBL however surgical wound culture grew near pansensitive E. coli and was discharged with Bactrim/Cefdinir. CTA lower extremity: Iizz-fr-[id number] multifocal atherosclerotic plaquing of the SFA. Patent popliteal artery stent with single vessel runoff to the foot. Vascular surgery Dr Henry consulted recommended BKA given reocclusion despite angioplasty 1 month ago Patient treated with IV Rocephin and vancomycin. Dr. Flores performed BKA Hypernatremia Hypokalemia 12/10 - potassium 2.4 s/p 3 bags KCl s/p K-lyte 050 meq x1 repeat potassium 3.1 in afternoon 12/14 - Potassium 2.5 s/p 3 bags KCl repeat potassium in afternoon Monitor and replete electrolytes as needed. Daily labs Willis syndrome Patient with chronic colonic dilatation. Continue supportive care. Monitor and optimize electrolytes. 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 12/16 Pain is well-controlled He has no fever. Continue antibiotics for now. Aggressive blood sugar control. Monitor and optimize electrolytes. Replace potassium as needed. Dr. Flores anticipating discharge by tomorrow if labs unremarkable and vitals are stable. 12/17 RATNA drain removed today by surgery Dr. Flores Continue antibiotics for now. Replace hypokalemia IV and orally Monitor and optimize electrolytes Diet as tolerated Increase activity as tolerated. 12/18 Patient with a few episodes of diarrhea and recurrent hypokalemia. Hypokalemia likely related to the diarrhea. Nephrology consulted to evaluate for possible renal potassium losses. Diet modified to soft consistency after speech evaluation today Increase activity as tolerated. Monitor renal function and electrolytes. 12/19 Patient has refractory hypokalemia. Associated diarrhea. Nephrology is following and evaluating renal potassium loss Nephrology Dr. Marie started patient on Aldactone 24-hour urine potassium is pending Continue to replace potassium IV and orally Monitor BMP and electrolytes and replace as needed. Replace phosphorus and magnesium as needed. Increase activity as tolerated. PT consult. 12/[address] Marie input appreciated. Continue to replace potassium IV and orally Continue Aldactone. Dr. Marie recommend daily potassium supplementation. Continue to monitor and replace electrolytes.
[2024-12-20] MEDS: POTASSIUM CL 40 MEQ in NA CHLORIDE 0.9% 500 ML IV SCH (17:02)
[2024-12-21 06:18] LABS: Anion Gap 8.7 mEq/L (5.0-15.0); Potassium 2.7 mEq/L (3.5-5.1)
[2024-12-21] MEDS: KCL 20 MEQ/100 mL IVPB 20 MEQ/100 ML BAG IV SCH (08:52)
[2024-12-21] MEDS: NA CHLORIDE 0.9% 500 ML ONE (08:53)
--- NOTE | 2024-12-21 13:22 | P.PN ---
Subjective Date of Service: 12/21/24 Chief Complaint: Nonhealing postsurgical wound Nursing staff reports intermittent diarrhea. No issues overnight. Physical Examination - Vital Signs Temperature: 97.8 F Blood Pressure: 174/76 Pulse: 77 Respirations: 17 Pulse Ox (%): 99 Assessment And Plan - Plan Physical Exam: GEN: Alert, oriented, NAD CV: Regular rate and rhythm, no edema Pulm: Nonlabored respirations on room air, clear bilaterally Abdomen: Abdomen is less distended today, nontender, normal bowel sounds. Extremity: Left BKA with clean dressing. 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 Right foot post surgical site concerning for infection. Patient with multiple recent hospitalization for poor healing wound. Underwent angioplasty and eventually right great toe partial amputation in September 2024. Most recently underwent I&D on 11/15/[address] Flores. 1 wound culture grew E. coli ESBL however surgical wound culture grew near pansensitive E. coli and was discharged with Bactrim/Cefdinir. CTA lower extremity: [id number] multifocal atherosclerotic plaquing of the SFA. Patent popliteal artery stent with single vessel runoff to the foot. Vascular surgery Dr Henry consulted recommended BKA given reocclusion despite angioplasty 1 month ago Patient treated with IV Rocephin and vancomycin. Dr. Flores performed BKA Hypernatremia Hypokalemia 12/10 - potassium 2.4 s/p 3 bags KCl s/p K-lyte 050 meq x1 repeat potassium 3.1 in afternoon 12/14 - Potassium 2.5 s/p 3 bags KCl repeat potassium in afternoon Monitor and replete electrolytes as needed. 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 Continue supportive care. Monitor and optimize electrolytes. 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 12/16 Pain is well-controlled He has no fever. Continue antibiotics for now. Aggressive blood sugar control. Monitor and optimize electrolytes. Replace potassium as needed. Dr. Flores anticipating discharge by tomorrow if labs unremarkable and vitals a re stable. 12/17 RATNA drain removed today by surgery Dr. Flores Continue antibiotics for now. Replace hypokalemia IV and orally Monitor and optimize electrolytes Diet as tolerated Increase activity as tolerated. 12/18 Patient with a few episodes of diarrhea and recurrent hypokalemia. Hypokalemia likely related to the diarrhea. Nephrology consulted to evaluate for possible renal potassium losses. Diet modified to soft consistency after speech evaluation today Increase activity as tolerated. Monitor renal function and electrolytes. 12/19 Patient has refractory hypokalemia. Associated diarrhea. Nephrology is following and evaluating renal potassium loss Nephrology Dr. Marie started patient on Aldactone 24-hour urine potassium is pending Continue to replace potassium IV and orally Monitor BMP and electrolytes and replace as needed. Replace phosphorus and magnesium as needed. Increase activity as tolerated. PT consult. 12/[address] Marie input appreciated. Continue to replace potassium IV and orally Continue Aldactone. Dr. Marie recommend daily potassium supplementation. Continue to monitor and replace electrolytes. 12/21 Patient with refractory hypokalemia. Nephrology following and assisting with management Continue spironolactone. Nephrology input appreciated. Continue to replace potassium IV and orally Avoid antidiarrheal agent/dysmotility agents. Speech therapy evaluated patient, patient's diet advanced to thin liquids. Continue to monitor electrolytes and renal function. Patient has been on antibiotics for several days for infected right foot wound, status post amputation. Discontinue antibiotics.
--- NOTE | 2024-12-21 17:07 | P.CNS ---
Date of Consult: 12/21/24 Reason for consult: Non healing Post surgical wound HPI Patient is a 69-year-old who has been admitted several times for poorly healing surgical wound to the right big toe amputation. Last abx was given on 12/21/24. finished anibalo and chapisn. PMH: DM, depression, HTN. hypoth yrodiism, CVA, schizophrenia and PAD Medical/Surgical Hx Diabetic: Yes -: cva residual right-sided weakness -: Depressive disorder -: gallstones -: diabetic retinopathy -: depression -: thyroid disease -: seizures -: CAD -: Diabetes mellitusIDDM -: Schizophrenia -: Speech disturbances -: Dimension -: CABG -: thyoidectomy -: right 5th toe amputation -: BLE stents ROS: 10 point ROS reveiwed and negative unless stated in HPI - Physical Exam General: Alert with no distress HEENT: Atraumatic, Normocephalic Lung: CTA Cardiovascular: No edema, Normal pulses, Regular rate/rhythm, Normal S1 S2 Skin: Right BKA with dressing Neurological: aox 2, mild confusion Lab: wbc 7.8, Hgb 9.7, Plt count 182, BUN 10, Creatinine 0.55 blood culture 12/08/24 no growth Assessment/planning infected right foot wound SP amputation wound care monitor wbc and fever trend off antibiotic case discussed and in agreement with Dr Thorpe
--- NOTE | 2024-12-21 22:52 | PN ---
Date of Progress Note: 12/21/2024 Chief Complaint: Hypokalemia. Subjective: The patient has persistent hypokalemia. The patient was found to have potassium decline d to 2.2, and he is on aggressive potassium replacement. The patient was started on spironolactone t o control hypokalemia. Review of Systems: Unobtainable. The patient is lethargic. Objective: Neck: Supple. No JVD. Heart: S1, S2. No pericardial friction rub. Abdomen: Soft, benign. Lungs: Clear to auscultation bilaterally. Extremities: Left leg BKA. Impression And Plan: 1. The patient is a 69-year-old man with nonhealing postsurgical wound. The patient is treated for s evere hypokalemia. The patient had bouts of diarrhea. Persistent hypokalemia is multifactorial seco ndary to poor oral intake and diarrhea. Plan is to start Aldactone and it was already resumed. The patient will continue Aldactone. Monitor magnesium level. Continue potassium supplementation. 2. Hypernatremia, resolved. Increase p.o. fluid intake. 3. Delmy syndrome. Continue aggressive potassium supplementation. 4. Diabetes mellitus, on insulin. Monitor blood glucose. 5. Hypertension. The patient is currently not on antihypertensive agents. Continue hydralazine acco rding to blood pressure result. The patient was started also on Aldactone. 6. Right foot infection. Continue antibiotics. Monitor vancomycin level. EB/MODL Voice ID: [id number] Report ID: [id number]
[2024-12-22 06:03] LABS: Absolute Basophils 0.1 K/uL (0-0.5); Absolute Eosinophils 0.2 K/uL (0-0.5); Absolute Lymphocytes (CBC) 0.9 K/uL (0.7-4.9); Absolute Monocytes 0.6 K/uL (0.1-1.3); Absolute Neutrophil 3.7 K/uL (1.8-8.0); Eosinophils % 3.5 % (0-4.4); Hematocrit 26.3 % (39.6-49.0); Hemoglobin 8.9 g/dL (13.6-17.9); Lymphocytes % 16.4 % (15.3-44.8); MCH 27.6 pg (27.0-35.0); MCHC 33.8 g/dL (32.0-36.0); MCV 81.5 fL (80-100); MPV 7.6 fL (7.6-11.3); Monocytes % 10.8 % (3.3-12.3); Neutrophils % 68.3 % (41.7-73.7); Nucleated Red Blood Cells % 0.1 % (0-0); Platelets 208 thou/uL (152-406); RBC Red Blood Cell Count 3.23 M/uL (4.33-5.43); Red Cell Distribution Width 19.2 % (12.1-15.2)
[2024-12-22 06:19] LABS: Anion Gap 7.5 mEq/L (5.0-15.0)
[2024-12-22 06:23] LABS: Potassium 2.5 mEq/L (3.5-5.1)
[2024-12-22] MEDS: POTASSIUM CL 40 MEQ in NA CHLORIDE 0.9% 500 ML IV SCH (09:04)
--- NOTE | 2024-12-22 10:38 | P.PN ---
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 BP initially 90/50 on EMS arrival. Improved to 120s en route to ER. Right foot post surgical site concerning for infection. Patient with multiple recent hospitalization for poor healing wound. CTA lower extremity: [id number] multifocal atherosclerotic plaquing of the SFA. Patent popliteal artery stent with single vessel runoff to the foot. Dr. Henry recommending consideration for BKA given re-occlusion despite a ngioplasty 1 month a ago. 12/15 - s/p right BKA with Dr. Flores 12/17 - RATNA drain removed 12/19 - ID consulted 12/21 - s/p 2 weeks of IV Rocephin / vanc (12/08-12/21) 12/22 - Continue supportive care, pain control, local wound care f/u with Dr. Flores in 1 week. [place] to be removed 2 weeks from day of surgery (~12/28) Persistent Hypokalemia Hypernatremia, resolved unclear etiology, renal loss vs gi loss vs other. reportedly some diarrhea, unclear how much/ doesn't seem consistent throughout entire hospitalization Monitor and replete electrolytes as needed. Avoid antidiarrheal agent/dysmotility agents. Daily labs - Potassium persistently low 12/18 - Nephrology consulted c.diff studies negative daily KCL added /5 - Aldactone added per nephro 12/20 - Potassium bicarb 50 meq BID added 12/22 - continues to replace potassium IV and orally [place]roghan syndrome Patient with chronic colonic dilatation. Continue supportive care. 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
[2024-12-22] MEDS: POTASSIUM 25 MEQ EFFERV TAB PO ONE (12:01)
[2024-12-22] MEDS: POTASSIUM PHOS 30 MM in NA CHLORIDE 0.9% 500 ML IV ONE (12:02)
[2024-12-22 13:03] LABS: UR POTASSIUM < 6.0 mmol/L (20-40); UR SODIUM > 245 mmol/L (27-287)
--- NOTE | 2024-12-22 14:34 | PN ---
Subjective: The patient lying in bed. No new acute event. Chart reviewed. Objective: Vital Signs: Temperature 98, pulse 77, respirations 18, blood pressure 188/75. Lungs: Basal crackles. Heart: S1, S2. Regular. Abdomen: Soft, nontender. Bowel sounds present. Extremities: Postsurgical wound noted. Assessment And Plan: The patient has diabetes mellitus, status post amputation of right infected kristen t wound. Anemia of chronic disease. Monitor signs of infection with WBC and fever trends. NF/MODL Voice ID: [id number] Report ID: [id number]
[2024-12-22] MEDS: POTASSIUM 25 MEQ EFFERV TAB PO SCH (14:59)
[2024-12-22] MEDS: lisinopriL 20 MG TAB PO SCH (20:27)
[2024-12-23] MEDS: LEVOTHYROXINE SOD 0.075 MG TAB PO SCH (05:46)
[2024-12-23 07:38] LABS: Percent Reticulocyte Count 2.82 % (0.4-2.05); RBC Red Blood Cell Count 3.37 M/uL (4.33-5.43)
[2024-12-23 10:43] LABS: Albumin 2.4 g/dL (3.4-5.0); Anion Gap 10.3 mEq/L (5.0-15.0); Ferritin 137.6 ng/mL (26-388); Magnesium 2.1 mg/dL (1.6-2.4); Phosphorus 2.5 mg/dL (2.5-4.9); Potassium 3.3 mEq/L (3.5-5.1)
--- NOTE | 2024-12-23 10:44 | PN ---
Date of Progress Note: 12/23/2024 Subjective: The patient was admitted to the hospital. The patient found to have severe hypokalemia secondary to salt wasting. The patient was started on spironolactone. His urine potassium has impro obed significantly down to less than 0.6. We are still awaiting for the lab of today. Physical Examination: Vital Signs: When I saw the patient, blood pressure 163/76, pulse of 72, afebrile. Chest: Clear to auscultation. Heart: S1, S2. Systolic murmur. Abdomen: Soft, nontender. Extremities: Cast on the right leg. Neurologic: Alert. No tremor. Laboratory Data: Today, chemistry still pending. Hemoglobin 8.9. Urine potassium less than 6, urin e osmolality 696. Transtubular potassium gradient is 0.6, which means the wasting has been improved. Assessment And Plan: 1. Significant hypokalemia secondary to renal wasting. Continue spironolactone. Continue KATHERINE inhibi tor and we will follow up lab. Today, we will continue aggressive supplement. 2. Hypertension, better controlled today. We will follow up. 3. Nephrotic range of proteinuria with anemia. Serology still pending. 4. Serum protein electrophoresis, still pending. We will follow up. 5. Persistent hypokalemia secondary to salt wasting. Continue spironolactone. Continue KATHERINE inhibito r. We will follow up lab today. We will continue aggressive supplement. Urine transtubular potassium gradient down to 0.6, which mean spironolactone working very well. We will follow up. ARTEM Voice ID: [id number] Report ID: [id number]
--- NOTE | 2024-12-23 11:28 | P.PN ---
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 BP initially 90/50 on EMS arrival. Improved to 120s en route to ER. Right foot post surgical site concerning for infection. Patient with multiple recent hospitalization for poor healing wound. CTA lower extremity: [id number] multifocal atherosclerotic plaquing of the SFA. Patent popliteal artery stent with single vessel runoff to the foot. Dr. Henry recommending consideration for BKA given re-occlusion despite a ngioplasty 1 month a ago. 12/15 - s/p right BKA with Dr. Flores 12/17 - RATNA drain removed 12/19 - ID consulted 12/21 - s/p 2 weeks of IV Rocephin / vanc (12/08-12/21) 12/23 - Continue supportive care, pain control, local wound care f/u with Dr. Flores in 1 week. [place] to be removed 2 weeks from day of surgery (~12/28) Persistent Hypokalemia Hypernatremia, resolved unclear etiology, renal loss vs gi loss vs other. reportedly some diarrhea, unclear how much/ doesn't seem consistent throughout entire hospitalization Monitor and replete electrolytes as needed. Avoid antidiarrheal agent/dysmotility agents. Daily labs - Potassium persistently low 12/18 - Nephrology consulted c.diff studies negative daily KCL added / - Aldactone added per nephro 12/20 - Potassium bicarb 50 meq BID added 12/22 - continues to replace potassium IV and orally 12/23 - Potassium improving. 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 Continue supportive care. 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
[2024-12-23 13:57] LABS: Rheumatoid Factor NEG (NEG)
--- NOTE | 2024-12-23 15:54 | P.PN ---
Date of Service: 12/23/24 Subjective: The patient lying in bed. No new acute event. Chart reviewed. Objective: Vital Signs: Temp Pulse Resp BP Pulse Ox 98.2 F 85 17 142/74 H 98 12/23/24 12:00 12/23/24 12:00 12/23/24 12:00 12/23/24 12:00 12/23/24 12:00 Lungs: Basal crackles. Heart: S1, S2. Regular. Abdomen: Soft, nontender. Bowel sounds present. Extremities: right BKA wound dressing Neuro:aox 2 Labs: wbc 5.4, BUN 8, cr 0.53 culture blood negative 12/08/24 Assessment And Plan: infected right foot wound s/p amputation Monitor signs of infection with WBC and fever trends. wound care off abx Anemia of chronic disease. case discussed and in agreement with Dr Thorpe
[2024-12-23 17:40] LABS: 1,25 Dihydroxy Vitamin D3 33 pg/mL; Vitamin D 1,25-Dihydroxy Total 33 pg/mL (18-72); Vitamin D,1,25-OH2, D2 <8 pg/mL
[2024-12-24 07:53] VITALS: O2SAT 100
[2024-12-24 08:14] LABS: Albumin 2.4 g/dL (3.4-5.0); Anion Gap 6.3 mEq/L (5.0-15.0); Magnesium 2.1 mg/dL (1.6-2.4); Potassium 3.3 mEq/L (3.5-5.1)
[2024-12-24] MEDS ORDERED: POTASSIUM 25 MEQ EFFERV TAB PO ONE (12:14)
[2024-12-24 12:27] VITALS: BP 152/76; TEMP 98
--- NOTE | 2024-12-24 12:39 | PN ---
Date of Progress Note: 12/24/2024 Subjective: The patient was admitted to the hospital with hypokalemia, hypomagnesemia, electrolyte i mbalance. The patient was started on aggressive hydration. The patient's workup showed renal wastin g. The patient was started on lisinopril and spironolactone. Transtubular potassium gradient has be en improved. Physical Examination: Vital Signs: Blood pressure 145/72, pulse of 78, afebrile. Chest: Clear to auscultation. Heart: S1, S2. Regular. Abdomen: Soft, nontender. Extremities: Cast on the right with below-knee amputation. No edema. Laboratory Data: Hemoglobin 8.9. Sodium 139, potassium 3.3, bicarb 32, BUN 9, creatinine 0.6, calci um 8.4, phosphorus 3, magnesium 2.1, iron saturation of 13, ferritin 137. Current Medications: The patient is on include: 1. Rivastigmine. 2. Nystatin. 3. Atorvastatin. 4. Lisinopril 20 b.i.d. 5. Spironolactone. 6. Gabapentin. 7. Zoloft. Assessment And Plan: 1. Hypokalemia secondary to renal wasting. I am going to continue aggressive supplement and we will follow up. 2. Hypertension, controlled, optimal. Continue spironolactone and lisinopril. 3. Nephrotic range of proteinuria with anemia. Serum protein electrophoresis still pending. Had iro n deficiency anemia. The patient was started on IV iron. We will follow up. 4. Renal wasting complicated with hypokalemia. Currently, urine potassium gradient is low. The oscar ent responding to spironolactone and lisinopril. We will continue. I am going to supplement for the time being to have better response and we will follow up. The patient cleared from the renal standp oint for discharge planning. MARTHA/INGRID Voice ID: [id number] Report ID: [id number]
[2024-12-24] MEDS ORDERED: SOD FERRIC GLUC COMPLX/SUCROSE 250 MG in NA CHLORIDE 0.9% 250 ML IV SCH (13:00)
[2024-12-24] MEDS ORDERED: KCL 20 MEQ/100 mL IVPB 20 MEQ/100 ML BAG IV SCH (13:00)
[2024-12-24 15:05] LABS: PRA,LC/MS/MS 0.14 ng/mL/h (0.25-5.82)
--- NOTE | 2024-12-24 23:35 | PN ---
Date of Progress Note: 12/24/2024 Subjective: The patient is being discharged today. No new acute event. Chart reviewed. Objective: Vital Signs: Reviewed. Lungs: Basal crackles. Heart: S1, S2. Regular. Abdomen: Soft, nontender. Bowel sounds present. Extremities: Right BKA wound noted. Laboratory Data: Reviewed. Assessment And Plan: 1. Infected right foot wound, status post amputation. 2. Anemia of chronic disease. 3. Moderate protein-calorie malnourishment. Monitor signs of infection with WBC and fever trends, and monitor surgical wound site. We will follo w the patient as needed. NF/MODL Voice ID: [id number] Report ID: [id number]
--- NOTE | 2024-12-26 06:42 | P.DS ---
Admission Date: 12/08/24 Discharge Date: 12/24/24 Disposition: TRANSFER TO INTERMEDIATE Discharge Condition: FAIR Reason for Admission: Nonhealing postsurgical wound Consultations: General surgery - Dr. Flores Nephrology - Dr. Wolff, Dr. Medina-Iron, ID - Dr. Thorpe Vascular/IR - Dr. 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 He has been admitted several times for the poorly healing surgical wound, specifically at the site of right big toe amputation. He is known to general surgery, Dr. Fair. He is brought in this time for altered mental status. His wounds appeared infected. Foot x-ray has been done, results still pending. His mental status is back to baseline.Patient has a history of peripheral vascular disease complicated by critical right popl iteal stenosis which has been managed in the past with angioplasty and eventually right great toe partial amputation in September 2024. He has had other admission for wound cellulitis at the surgical site. He was last seen here November 15, 2024 and underwent debridement of chronic wound at the first metatarsal. Patient was treated with antibiotics and discharged. His wound culture at the time yielded ESBL E. coli. However, surgical wound culture yielded nearly pansensitive E. coli. Patient was discharged on Bactrim and cefdinir. 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 Patient noted to have multiple recent hospitalization's for poor healing wound, most recently underwent I&D on 11/15/24. CTA lower extremity revealed [id number] multifocal atherosclerotic plaquing of the SFA and Patent popliteal artery stent with single vessel runoff to the foot. Dr. Henry, vascular IR recommended consideration of BKA given re-occlusion despite recent angioplasty 1 month ago to which patient and family were agreeable. Patient underwent right BKA with Dr. Flores on 12/15. Patient did well post- operatively. RATNA drain was removed on 12/17. ID was consulted and recommended patient complete 2 weeks of antibiotics. Patient completed 2 weeks of IV rocephin and vancomycin (12/08-12/21). Advised patient to follow up with Dr. Flores in ~1 week for further management and nikolas removal. [place] to be removed ~2 weeks from day of surgery. Hospitalization was prolonged secondary to persistent hypokalemia. This was felt to be secondary to a combination of renal wasting and GI losses / diarrhea in setting of his chronic Delmy's syndrome. Nephrology was consulted and started spironolactone, increased potassium supplementation, and added lisinopril. He had gradual improvement of his potassium. His transtubular potassium gradient improved, so he was deemed stable for discharge back to long-term. To continue with close monitoring of electrolytes, and titrate potassium replacement as needed. Recommended repeat chemistry in ~3-5 days. Since adding spironolactone and lisinopril, his blood pressure remained in the normal range. His amlodipine was held, and recommend continuing to hold this medication for now. Medications: spironolactone lisinopril potassium replacement 50meq TID norco 5-325mg for pain Follow up: PCP 3-5 days Nephrology in ~1-2 weeks Please call to schedule / confirm appointments Physical Exam: GEN: Alert, oriented, NAD CV: Regular rate and rhythm, no edema Pulm: Nonlabored respirations on room air, clear bilaterally Integumentary: right BKA, dressing in place c/d/i Vital Signs/Physical Exam: Temp Pulse Resp BP Pulse Ox 98 F 85 16 152/76 H 97 12/24/24 12:00 12/24/24 12:00 12/24/24 12:00 12/24/24 12:00 12/24/24 12:00 Laboratory Data at Discharge: WBC 5.40 thou/uL (4.3-10.9) 12/22/24 05:50 Hgb 8.9 g/dL (13.6-17.9) L 12/22/24 05:50 Hct 26.3 % (39.6-49.0) L 12/22/24 05:50 Plt Count 208 thou/uL (152-406) 12/22/24 05:50 PT 12.6 SECONDS (10-13.0) 12/08/24 19:28 INR 1.11 12/08/24 19:28 APTT 31.8 SECONDS (27.2-37.4) 12/08/24 19:28 Sodium 139 mEq/L (136-145) 12/24/24 07:50 Potassium 3.3 mEq/L (3.5-5.1) L 12/24/24 07:50 BUN 9 mg/dL (7-18) 12/24/24 07:50 Creatinine 0.62 mg/dL (0.70-1.30) L 12/24/24 07:50 Glucose 120 mg/dL (74-106) H 12/24/24 07:50 Phosphorus 3.0 mg/dL (2.5-4.9) 12/24/24 07:50 Magnesium 2.1 mg/dL (1.6-2.4) 12/24/24 07:50 Total Bilirubin 0.8 mg/dL (0.2-1.0) 12/12/24 09:24 AST < 10 U/L (15-37) L 12/12/24 09:24 ALT < 14 U/L (16-61) L 12/12/24 09:24 Alkaline Phosphatase 58 U/L (45-117) 12/12/24 09:24 Home Medications: Atorvastatin Calcium 40 mg PO BEDTIME 05/31/21 Clopidogrel Bisulfate [Plavix] 75 mg PO DAILY 05/31/21 Insulin Glargine,Hum.rec.anlog [Lantus] 26 unit SQ BID 05/31/21 Acetaminophen [Tylenol] 650 mg PO Q4HP PRN 05/20/24 Aripiprazole [Abilify] 5 mg PO BEDTIME 05/20/24 Aspirin 325 mg PO DAILY 05/20/24 Divalproex [Depakote Sprinkle*] 4 cap PO BID 05/20/24 Gabapentin [Neurontin*] 100 mg PO DAILY 05/20/24 Omeprazole 20 mg PO DAILY 05/20/24 Rivastigmine Tartrate [Rivastigmine] 1.5 mg PO BID 05/20/24 Sertraline HCl 50 mg PO DAILY 05/20/24 Sitagliptin Phosphate [Januvia] 100 mg PO DAILY 05/20/24 Lactulose 30 ml PO Q12HP PRN 06/10/24 Levothyroxine Sodium 125 mcg PO 0600 06/10/24 Insuln Asp Prt/Insulin Aspart [Novolog Mix 70-30 Vial] See Protocol SQ BID 10/11/24 Lactobacillus Combination No.4 [Probiotic] 2 cap PO DAILY 10/11/24 Metoprolol Tartrate [Lopressor*] 25 mg PO BID 10/11/24 Simethicone [Gas Relief] 125 mg PO Q6HP PRN 10/11/24 Bisacodyl [Dulcolax*] 10 mg MD DAILY PRN #0 supp 10/21/24 Collagenase [Santyl Ointment*] 1 appl TOP DAILY tube 10/21/24 Amino Acids/Protein Hydrolys [Prosource No Carb Liquid Pkt] 30 ml PO BID #60 packet 11/05/24 Collagenase [Santyl Ointment*] 1 appl TOP DAILY #0 gm 11/20/24 Hydrocodone 5/APAP 325 [Durant 5/325*] 1 tab PO Q6H PRN #15 tab 12/17/24 levETIRAcetam [Keppra] 10 ml PO BID #600 ml 12/17/24 Potassium Bicarbonate/Cit AC [Klor-Con-Ef 25 Meq Tab Eff] 50 meq PO TID 30 Days 12/24/24 Spironolactone [Aldactone*] 50 mg PO BID #0 tab 12/24/24 lisinopriL [Prinivil*] 20 mg PO BID 30 Days #60 tab 12/24/24 New Medications: Spironolactone [Aldactone*] 50 mg PO BID #0 tab levETIRAcetam [Keppra] 10 ml PO BID #600 ml Potassium Bicarbonate/Cit AC [Klor-Con-Ef 25 Meq Tab Eff] 50 meq PO TID 30 Days Hydrocodone 5/APAP 325 [Dur[place] 5/325*] 1 tab PO Q6H PRN #15 tab PRN Reason: Pain Scale 5-7 (Moderate) lisinopriL [Prinivil*] 20 mg PO BID 30 Days #60 tab Physician Discharge Instructions: Physician discharge instructions: Patient presented with decreased responsiveness, altered mentation secondary to infected right lower extremity wound. Patient noted to have multiple recent hospitalization's for poor healing wound, most recently underwent I&D on 11/15/24. CTA lower extremity revealed [id number] multifocal atherosclerotic plaquing of the SFA and Patent popliteal artery stent with single vessel runoff to the foot. Dr. Henry, vascular IR recommended consideration of BKA given re-occlusion despite recent angioplasty 1 month ago to which patient and family were agreeable. Patient underwent right BKA with Dr. Flores on 12/15. Patient did well post- operatively. RATNA drain was removed on 12/17. ID was consulted and recommended patient complete 2 weeks of antibiotics. Patient completed 2 weeks of IV rocephin and vancomycin (12/08-12/21). Advised patient to follow up with Dr. Flores in ~1 week for further management and nikolas removal. [place] to be removed ~2 weeks from day of surgery. Hospitalization was prolonged secondary to persistent hypokalemia. This was felt to be secondary to a combination of renal wasting and GI losses / diarrhea in setting of his chronic Delmy's syndrome. Nephrology was consulted and started spironolactone, increased potassium supplementation, and added lisinopril. He had gradual improvement of his potassium. His transtubular potassium gradient improved, so he was deemed stable for discharge back to long-term. To continue with close monitoring of electrolytes, and titrate potassium replacement as needed. Recommended repeat chemistry in ~3-5 days. Since adding spironolactone and lisinopril, his blood pressure remained in the normal range. His amlodipine was held, and recommend continuing to hold this medication for now. Medications: spironolactone lisinopril potassium replacement 50meq TID norco 5-325mg for pain Follow up: PCP 3-5 days Nephrology in ~1-2 weeks Please call to schedule / confirm appointments Diet: ADA Activity: Fall precautions Followup: Mc Flores MD [ACTIVE - CAN ADMIT] - 1 Week Edilson Holman MD [Primary Care Provider] - 1 Week Time spent managing pt's care (in minutes): 45
[2024-12-26 07:52] LABS: Abnormal Protein Band 1 REPORT; Albumin, (SPE) 2.7 g/dL (3.8-4.8); Alpha-1-Globulins 0.4 g/dL (0.2-0.3); Alpha-2-Globulins 0.8 g/dL (0.5-0.9); Beta 1 Globulin 0.3 g/dL (0.4-0.6); Gamma Globulins 0.5 g/dL (0.8-1.7); INTERPRETATION REPORT
[2024-12-27 12:58] LABS: C-ANCA Anti-Proteinase 3 <1.0 AI (<1.0); P-ANCA Anti-Myeloperoxidase Ab <1.0 AI (<1.0)
[2024-12-29 19:00] LABS: Anti-Nuclear Antibody Screen Negative (Negative)
== END 2024-12-24 12:55 | DRG 239 ==
LOC: ER 18:35 → ERHOLD 22:40 → 4TH 12-09 08:14
PROVIDERS: ADMIT Internal Medicine; ATTEND Hospitalist
PROC: 0Y6H0Z1 Detachment at Right Lower Leg, High, Open Approach (ICD-10-PCS; principal; 2024-12-15 11:00)
DX: E11.51 Type 2 diabetes mellitus with diabetic peripheral angiopathy without gangrene (principal); G93.41 Metabolic encephalopathy; I69.351 Hemiplegia and hemiparesis following cerebral infarction affecting right dominant side; E44.0 Moderate protein-calorie malnutrition; E87.0 Hyperosmolality and hypernatremia; E11.621 Type 2 diabetes mellitus with foot ulcer; L97.519 Non-pressure chronic ulcer of other part of right foot with unspecified severity; E87.6 Hypokalemia; I10 Essential (primary) hypertension; E03.9 Hypothyroidism, unspecified; K59.81 Ogilvie syndrome; D63.8 Anemia in other chronic diseases classified elsewhere; F25.9 Schizoaffective disorder, unspecified; G40.909 Epilepsy, unspecified, not intractable, without status epilepticus; I25.10 Atherosclerotic heart disease of native coronary artery without angina pectoris; F03.90 Unspecified dementia, unspecified severity, without behavioral disturbance, psychotic disturbance, mood disturbance, and anxiety; I69.391 Dysphagia following cerebral infarction; I69.320 Aphasia following cerebral infarction; R13.10 Dysphagia, unspecified; Z89.411 Acquired absence of right great toe; Z79.4 Long term (current) use of insulin; Z79.82 Long term (current) use of aspirin; Z68.35 Body mass index [BMI] 35.0-35.9, adult; Z79.02 Long term (current) use of antithrombotics/antiplatelets; Z79.890 Hormone replacement therapy; Z79.899 Other long term (current) drug therapy
CPT/HCPCS: 36415; 70450; 71045; 73706; 74018; 76770; 80048; 80053; 80069; 80076; 80202; 81001; 82088; 82306; 82550; 82570; 82652; 82728; 82947; 83520; 83540; 83605; 83735; 83880; 83930; 83935; 84100; 84132; 84156; 84165; 84244; 84300; 84439; 84443; 84466; 84484; 85025; 85027; 85044; 85610; 85730; 86021; 86038; 86430; 86803; 87040; 87324; 88307; 92526; 92610; 93005; 96365; 97110; 97161; 97530; 99285; J0171; J0360; J0696; J1100; J1610; J1630; J1815; J2003; J2371; J2405; J2704; J3370; J3475; J3480; J3590; J7030; J7040; J7050; J7799; Q9967

== ENCOUNTER 2024-12-31 10:57 | Emergency (ER) | payer OTHER ==
[2024-12-31] MEDS ORDERED: AMOX/K CLAV 875 MG TAB ONE (11:25)
[2024-12-31 12:37] LABS: Anion Gap 7.4 mEq/L (5.0-15.0); Potassium 3.4 mEq/L (3.5-5.1)
--- NOTE | 2024-12-31 12:40 | EDPHYS ---
Physician Documentation [facility] Name: Donaldo English Age: 69 yrs Sex: Male : 1955 Arrival Date: 12/31/2024 Time: 10:57 Bed 5 Private MD: ED Physician Elizabeth Perez HPI: 12/31 12:03 This 69 yrs old Male presents to ER via EMS with complaints of Post Surgical Bleeding. sp3 12:03 61-year-old male with history of prior CVA, dementia, diabetes presents with right BKA sp3 wound bleeding with reports of patient self removing nikolas in his demented state. Bleeding was controlled by correction. Daughter called and asked if we could recheck potassium. ROS, history and physical limited secondary to dementia.. Historical: - Allergies: 11:21 No Known Allergies; ph - PMHx: 11:21 Cerebrovascular accident; coronary atherosclerosis; Dementia; depressive disorder; ph diabetes mellitus; dysphasia (Speech disturbances); Hypertensive disorder; Hypothyroidism; Right sided weakness; schizoaffective disorder; Seizure; Speech disturbances; - PSHx: 11:21 Quadruple bipass; right foot; ph - Immunization history:: Adult Immunizations unknown. - Infectious Disease History:: Denies. - Social history:: Smoking status: unknown. ROS: 12:08 Unable to obtain ROS due to baseline dementia, sp3 Exam: 12:08 Musculoskeletal/extremity: Dressing removed and all nikolas appear to be in place. No sp3 significant bleeding noted. We will redress and safely send patient home with surgical follow-up with Dr. Flores. Potassium will be checked prior to discharge. I am not concerned about any other acute process at this time.. Vital Signs: 12:06 BP 126 / 62; Pulse 91; Resp 18; Temp 97.9; Pulse Ox 100% on R/A; ph 13:10 BP 136 / 65; Pulse 84; Resp 18; Pulse Ox 98% on R/A; ph MDM: 11:00 Medical Screening Exam initiated sp3 12/31 11:57 Order name: BMP; Complete Time: 12:38 sp3 12/31 11:05 Order name: Wound Care; Complete Time: 13:07 sp3 Administered Medications: 13:07 Drug: Amoxicillin-Clavulanate PO 875 mg PO once Route: PO; ph Disposition Summary: 12/31/24 12:40 Discharge Ordered Notes: Location: Home sp3 Condition: Stable sp3 Diagnosis - Postsurgical wound bleeding, resolved sp3 Followup: sp3 - With: Private Physician - When: Upon discharge from the Emergency Department - Reason: Continuance of care Discharge Instructions: - Discharge Summary Sheet sp3 - Wound Care, Adult sp3 Forms: - Medication Reconciliation Form sp3 - Antibiotic Education sp3 - Prescription Opioid Use sp3 - Patient Portal Instructions sp3 - Leadership Thank You Letter sp3 Signatures: Dispatcher [employer] EDBelen Cloud, RN RN ph Elizabeth Perez MD MD sp3 Corrections: (The following items were deleted from the chart) 11:57 11:57 BASIC METABOLIC PANEL+[id number].LAB.BRZ ordered. ROLFME ALEXANDRO
--- NOTE | 2024-12-31 12:40 | ER ---
Nurse's Notes [facility] Name: Donaldo English Age: 69 yrs Sex: Male : 1955 Arrival Date: 12/31/2024 Time: 10:57 Bed 5 Private MD: Diagnosis: Postsurgical wound bleeding, resolved Presentation: 12/31 11:19 Chief complaint: EMS states: Pt from [place], had knee surgery done recently, had ph some nikolas removed yesterday by doctor, pt removed remaining nikolas himself today causing bleeding, bleeding controlled prior to EMS arrival. Coronavirus screen: Vaccine status: Patient reports being unvaccinated. Ebola Screen: No symptoms or risks identified at this time. Initial Sepsis Screen: Does the patient meet any 2 criteria? No. Patient's initial sepsis screen is negative. Does the patient have a suspected source of infection? No. Patient's initial sepsis screen is negative. Risk Assessment: Do you want to hurt yourself or someone else? Patient reports no desire to harm self or others. Onset of symptoms was December 31, 2024. 11:19 Method Of Arrival: EMS: [facility] 11:19 Acuity: LILIANA 4 ph Triage Assessment: 11:25 General: Appears in no apparent distress. comfortable, Behavior is calm, cooperative. ph Pain: Denies pain. Neuro: Level of Consciousness is awake, alert, obeys commands, Oriented to person, place. Cardiovascular: Capillary refill < 3 seconds in bilateral fingers Patient's skin is warm and dry. Respiratory: Airway is patent Respiratory effort is even, unlabored, Respiratory pattern is regular, symmetrical. GI: No signs and/or symptoms were reported involving the gastrointestinal system. Musculoskeletal: Amputation of R BKA, surgical site noted w/ nikolas in place, no bleeding or drainage noted. Historical: - Allergies: 11:21 No Known Allergies; ph - PMHx: 11:21 Cerebrovascular accident; coronary atherosclerosis; Dementia; depressive disorder; ph diabetes mellitus; dysphasia (Speech disturbances); Hypertensive disorder; Hypothyroidism; Right sided weakness; schizoaffective disorder; Seizure; Speech disturbances; - PSHx: 11: Quadruple bipass; right foot; ph - Immunization history:: Adult Immunizations unknown. - Infectious Disease History:: Denies. - Social history:: Smoking status: unknown. Screenin:22 Abuse screen: Denies threats or abuse. Denies injuries from another. Nutritional ph screening: No deficits noted. Tuberculosis screening: No symptoms or risk factors identified. 13:09 [facility] ED Fall Risk Assessment (Adult) History of falling in the last 3 months, ph including since admission Yes- fall prone (multiple falls) (3 pts) Confusion or Disorientation Yes (5 pts) Intoxicated or Sedated No (0 pts) Impaired Gait Yes (1 pt) Mobility Assist Device Used Yes (1 pt) Altered Elimination Yes (1 pt) Score/Fall Risk Level 3 or more points = High Risk Oriented to surroundings, Maintained a safe environment, Hourly rounding (assess needs \T\ fall precautionary measures) done, Used ambulatory aids as needed (educated on \T\ assisted with). Assessment: 12:20 Reassessment: Patient appears in no apparent distress at this time. Patient and/or hb family updated on plan of care and expected duration. Pain level reassessed. 14:09 Reassessment: [facility] called and reported ETA for transfer back to nursing [facility] home is 20mins.. Vital Signs: 12:06 BP 126 / 62; Pulse 91; Resp 18; Temp 97.9; Pulse Ox 100% on R/A; ph 13:10 BP 136 / 65; Pulse 84; Resp 18; Pulse Ox 98% on R/A; ph ED Course: 10:59 Patient arrived in ED. aa5 11:00 Elizabeth Perez MD is Attending Physician. sp3 11:21 Triage completed. ph 11:21 Arm band placed on Patient placed in an exam room, on a stretcher, on pulse oximetry. ph 11:22 Patient has correct armband on for positive identification. Bed in low position. Call ph light in reach. Side rails up X2. Pulse ox on. NIBP on. Door closed. Noise minimized. Warm blanket given. 12:01 Belen Mcghee, HIEN is Primary Nurse. ph 12:20 BMP Sent. hb 13:10 No provider procedures requiring assistance completed. IV discontinued, intact, ph bleeding controlled, No redness/swelling at site. Pressure dressing applied. Administered Medications: 13:07 Drug: Amoxicillin-Clavulanate PO 875 mg PO once Route: PO; ph Medication: 11:22 VIS not applicable for this client. ph Outcome: 12:40 Discharge ordered by MD. sp3 14:53 Patient left the ED. bc6 Signatures: Lizzette Walker, HIEN RN aa5 Belen Mcghee RN RN ph Baxter, Heather, RN RN Elizabeth Perez MD MD sp3 [facility]
[2024-12-31 15:04] VITALS: TEMP 97.9
[2024-12-31 15:05] VITALS: BP 136/65; O2SAT 98
== END 2024-12-31 14:53 | disposition home or self-care (01) ==
LOC: ER 10:57
DX: M96.831 Postprocedural hemorrhage of a musculoskeletal structure following other procedure (principal); Z89.511 Acquired absence of right leg below knee; Z95.1 Presence of aortocoronary bypass graft
CPT/HCPCS: 36415; 80048

== ENCOUNTER 2025-01-08 09:30 | Emergency (ER) | payer OTHER, MEDICAID ==
[2025-01-08 09:53] LABS: Absolute Basophils 0.1 K/uL (0-0.5); Absolute Eosinophils 0.2 K/uL (0-0.5); Absolute Lymphocytes (CBC) 0.9 K/uL (0.7-4.9); Absolute Monocytes 0.7 K/uL (0.1-1.3); Absolute Neutrophil 6.2 K/uL (1.8-8.0); Basophils % 0.8 % (0-1.3); Eosinophils % 2.2 % (0-4.4); Hematocrit 31.6 % (39.6-49.0); Hemoglobin 10.6 g/dL (13.6-17.9); Lymphocytes % 11.1 % (15.3-44.8); MCHC 33.5 g/dL (32.0-36.0); MCV 80.7 fL (80-100); MPV 8.6 fL (7.6-11.3); Monocytes % 8.3 % (3.3-12.3); Neutrophils % 77.6 % (41.7-73.7); Platelets 169 thou/uL (152-406); RBC Red Blood Cell Count 3.91 M/uL (4.33-5.43); Red Cell Distribution Width 18.5 % (12.1-15.2)
[2025-01-08] MEDS ORDERED: Ringers Lactate 1,000 ML IV ONE (09:56)
[2025-01-08 10:22] LABS: AST/SGOT 12 U/L (15-37); Albumin/Globulin Ratio 0.8 (1.1-1.8); Alkaline Phosphatase 63 U/L (45-117); Anion Gap 7.9 mEq/L (5.0-15.0); BUN Blood Urea Nitrogen 31 mg/dL (7-18); Bicarbonate 33 mEq/L (21-32); Bilirubin Direct 0.2 mg/dL (0-0.2); Bilirubin Indirect, Calculated 0.3 mg/dL (0.2-0.8); Bilirubin Total 0.5 mg/dL (0.2-1.0); Globulin 3.6 g/dL (2.3-3.5); Glomerular Filtration Rate 68 ml/min (=/>90); Glucose Level 149 mg/dL (74-106); Magnesium 2.1 mg/dL (1.6-2.4); Potassium 2.9 mEq/L (3.5-5.1); Protein, Total 6.6 g/dL (6.4-8.2); Sodium Level 144 mEq/L (136-145)
[2025-01-08 10:26] LABS: ALT/SGPT < 14 U/L (16-61)
[2025-01-08] MEDS ORDERED: POTASSIUM 25 MEQ EFFERV TAB ONE (11:47)
[2025-01-08] MEDS ORDERED: KCL 20 MEQ/100 mL IVPB 100 ML IV ONE (11:47)
--- NOTE | 2025-01-08 14:36 | ER ---
Nurse's Notes [facility] Name: Donaldo English Age: 69 yrs Sex: Male : 1955 Arrival Date: 01/08/2025 Time: 09:30 Bed 8 Private MD: Diagnosis: Hypokalemia Presentation: 01/08 09:33 Chief complaint: EMS states: they were called for a patient with low potassium after ap3 lab work yesterday. Coronavirus screen: At this time, the client does not indicate any symptoms associated with coronavirus-19. Ebola Screen: No symptoms or risks identified at this time. Initial Sepsis Screen: Does the patient meet any 2 criteria? No. Patient's initial sepsis screen is negative. Does the patient have a suspected source of infection? No. Patient's initial sepsis screen is negative. Risk Assessment: Do you want to hurt yourself or someone else? Patient reports no desire to harm self or others. Onset of symptoms is unknown. 09:33 Method Of Arrival: EMS: [facility] ap3 09:33 Acuity: LILIANA 3 ap3 Triage Assessment: 09:36 General: Appears in no apparent distress. Behavior is calm, cooperative. Pain: Unable ap3 to use pain scale. Neuro: Level of Consciousness is awake, alert, Oriented to person, place, patient has history of dementia . Cardiovascular: Patient's skin is warm and dry. Respiratory: Airway is patent Respiratory effort is even, unlabored, Respiratory pattern is regular, symmetrical. Historical: - Allergies: 09:34 No Known Allergies; ap3 - PMHx: 09:34 Cerebrovascular accident; coronary atherosclerosis; Dementia; depressive disorder; ap3 diabetes mellitus; dysphasia (Speech disturbances); Hypertensive disorder; Hypothyroidism; Right sided weakness; schizoaffective disorder; Seizure; Speech disturbances; - PSHx: 09:34 Quadruple bipass; right foot; ap3 - Immunization history:: Adult Immunizations unknown. - Infectious Disease History:: unknown. - Family history:: not pertinent. - Social history:: Smoking status: unknown. Screenin:37 Abuse screen: Denies threats or abuse. Nutritional screening: No deficits noted. ap3 Tuberculosis screening: No symptoms or risk factors identified. 09:45 [facility] ED Fall Risk Assessment (Adult) History of falling in the last 3 months, hb including since admission No falls in past 3 months (0 pts) Confusion or Disorientation Yes (5 pts) Intoxicated or Sedated No (0 pts) Impaired Gait Yes (1 pt) Mobility Assist Device Used No (0 pt) Altered Elimination No (0 pt) Score/Fall Risk Level 3 or more points = High Risk Oriented to surroundings, Maintained a safe environment, Educated pt \T\ family on fall prevention, incl call for assistance when getting out of bed, Assessed \T\ reinforced patient's understanding of fall precautions, Hourly rounding (assess needs \T\ fall precautionary measures) done. Assessment: 09:45 General: Appears in no apparent distress. Behavior is cooperative, fussy. Neuro: Level hb of Consciousness is awake, alert, obeys commands, confused, Oriented to person. Cardiovascular: Patient's skin is warm and dry. Respiratory: Respiratory effort is even, unlabored, Respiratory pattern is regular, symmetrical. 10:45 Reassessment: Patient appears in no apparent distress at this time. No changes from hb previously documented assessment. Patient and/or family updated on plan of care and expected duration. Pain level reassessed. 11:49 Reassessment: Patient appears in no apparent distress at this time. No changes from hb previously documented assessment. Patient and/or family updated on plan of care and expected duration. Pain level reassessed. 13:00 Reassessment: Patient appears in no apparent distress at this time. No changes from hb previously documented assessment. Patient and/or family updated on plan of care and expected duration. Pain level reassessed. 14:01 Reassessment: Patient appears in no apparent distress at this time. No changes from hb previously documented assessment. Patient and/or family updated on plan of care and expected duration. Pain level reassessed. 15:00 Reassessment: Patient appears in no apparent distress at this time. No changes from jl7 previously documented assessment. Patient and/or family updated on plan of care and expected duration. Pain level reassessed. Vital Signs: 09:33 BP 132 / 59; Pulse 95; Resp 17; Temp 97.8; Pulse Ox 100% on R/A; Weight 79 kg; ap3 09:45 BP 99 / 55; Pulse 101; Resp 17; Pulse Ox 99% on R/A; hb 11:49 BP 104 / 60; Pulse 97; Resp 15; Pulse Ox 98% on R/A; hb 12:57 BP 118 / 67; Pulse 90; Resp 15; Pulse Ox 100% ; jl7 14:02 BP 130 / 68; Pulse 78; Resp 15; Pulse Ox 99% ; hb ED Course: 09:31 Patient arrived in ED. ap3 09:31 Dominic Thorpe MD is Attending Physician. rt 09:34 Triage completed. ap3 09:37 Patient has correct armband on for positive identification. Bed in low position. Call ap3 light in reach. Side rails up X2. Client placed on continuous cardiac and pulse oximetry monitoring. NIBP monitoring applied. liquefied natural gas plant operator on. Pulse ox on. NIBP on. 09:37 Arm band placed on right wrist. ap3 09:45 Provided Education on: .. hb 09:51 Basic Metabolic Panel Sent. hb 09:51 CBC with Diff Sent. hb 09:51 LFT's Sent. hb 09:51 Magnesium Sent. hb 09:51 Troponin HS Sent. hb 09:51 Initial lab(s) drawn, by me, sent to lab. Inserted saline lock: 20 gauge in right hb antecubital area, using aseptic technique. Blood collected. Flushed with 10 mL NS. 09:54 Jaspal Maynard, RN is Primary Nurse. jl7 16:20 No provider procedures requiring assistance completed. IV discontinued, intact, jl7 bleeding controlled, No redness/swelling at site. Pressure dressing applied. Administered Medications: 11:54 Drug: Ringers - Lactated Ringers Solution IV 1000 ml IV at calculated rate bolus; to be jl7 given as a bolus over 60 minutes Route: IV; Rate: calculated rate; Site: right antecubital; 15:15 Follow up: Response: No adverse reaction; IV Status: Completed infusion; IV Intake: jl7 1000ml 11:54 Drug: Potassium PO Effervescent Tablet 50 mEq PO once; dissolve in 4 ounces of water or jl7 juice Route: PO; 15:15 Follow up: Response: No adverse reaction jl7 11:54 Drug: Potassium Chloride IV 20 mEq IV at calculated rate once; administer over 1-2 jl7 hours Route: IV; Rate: calculated rate; Site: right antecubital; 12:30 Follow up: Response: No adverse reaction; IV Status: Completed infusion jl7 Medication: 09:45 VIS not applicable for this client. hb Intake: 15:15 IV: 1000ml; Total: 1000ml. jl7 Outcome: 14:36 Discharge ordered by . rt 16:20 [facility]. Report called to Ciro giles 16:20 Condition: stable 16:20 Discharge instructions given to jail, EMS, Instructed on discharge instructions, follow up and referral plans. Demonstrated understanding of instructions, follow-up care, 16:21 Patient left the ED. chan Signatures: Temi Crespo RN HIEN Jaspal Maynard RN RN jl7 Eneida Lyle RN RN ap3 Dominic Thorpe MD MD rt
--- NOTE | 2025-01-08 14:36 | EDPHYS ---
Physician Documentation [facility] Name: Donaldo English Age: 69 yrs Sex: Male : 1955 Arrival Date: 01/08/2025 Time: 09:30 Bed 8 Private MD: ED Physician Dominic Thorpe HPI: 01/08 10:05 This 69 yrs old Male presents to ER via EMS with complaints of Abnormal Lab Results. rt 10:05 Unable obtain history per patient due to dementia. The patient was sent from nursing rt home for reported low potassium levels. Patient denies any complaints and does not know why he is in the hospital. Symptoms are moderate in severity, no other aggravating alleviating factors. Historical: - Allergies: 09:34 No Known Allergies; ap3 - PMHx: 09:34 Cerebrovascular accident; coronary atherosclerosis; Dementia; depressive disorder; ap3 diabetes mellitus; dysphasia (Speech disturbances); Hypertensive disorder; Hypothyroidism; Right sided weakness; schizoaffective disorder; Seizure; Speech disturbances; - PSHx: 09:34 Quadruple bipass; right foot; ap3 - Immunization history:: Adult Immunizations unknown. - Infectious Disease History:: unknown. - Family history:: not pertinent. - Social history:: Smoking status: unknown. ROS: 10:05 Constitutional: Negative for fever, chills, and weight loss, Cardiovascular: Negative rt for chest pain, palpitations, and edema, Respiratory: Negative for shortness of breath, cough, wheezing, and pleuritic chest pain, Abdomen/GI: Negative for abdominal pain, nausea, vomiting, diarrhea, and constipation, Skin: Negative for injury, rash, and discoloration, Neuro: Negative for headache, weakness, numbness, tingling, and seizure, Exam: 10:05 Constitutional: This is a well developed, well nourished patient who is awake, alert, rt and in no acute distress. Head/Face: Normocephalic, atraumatic. Chest/axilla: Normal chest wall appearance and motion. Nontender with no deformity. No lesions are appreciated. Cardiovascular: Regular rate and rhythm with a normal S1 and S2. No gallops, murmurs, or rubs. Normal PMI, no JVD. No pulse deficits. Respiratory: Lungs have equal breath sounds bilaterally, clear to auscultation and percussion. No rales, rhonchi or wheezes noted. No increased work of breathing, no retractions or nasal flaring. Abdomen/GI: Soft, non-tender, with normal bowel sounds. No distension or tympany. No guarding or rebound. No evidence of tenderness throughout. Skin: Warm, dry with normal turgor. Normal color with no rashes, no lesions, and no evidence of cellulitis. 10:05 ECG was reviewed by the Attending Physician. Vital Signs: 09:33 BP 132 / 59; Pulse 95; Resp 17; Temp 97.8; Pulse Ox 100% on R/A; Weight 79 kg; ap3 09:45 BP 99 / 55; Pulse 101; Resp 17; Pulse Ox 99% on R/A; hb 11:49 BP 104 / 60; Pulse 97; Resp 15; Pulse Ox 98% on R/A; hb 12:57 BP 118 / 67; Pulse 90; Resp 15; Pulse Ox 100% ; jl7 14:02 BP 130 / 68; Pulse 78; Resp 15; Pulse Ox 99% ; hb MDM: 09:31 Medical Screening Exam initiated rt 16:57 Differential Diagnosis Hypokalemia, electrolyte disturbances. Data reviewed: vital rt signs, nurses notes, lab test result(s), EKG. Consideration of Admission/Observation Escalation of care including admission/observation considered. Patient with only mildly decreased potassium levels today, was given oral and IV potassium. He seems to be at baseline status, no likely benefit from admission, stable for outpatient care.. I considered the following discharge prescriptions or medication management in the emergency department Medications were administered in the Emergency Department. See MAR. Care significantly affected by the following chronic conditions: Dementia. Counseling: I had a detailed discussion with the patient and/or guardian regarding the historical points, exam findings, and any diagnostic results supporting the discharge/admit diagnosis, lab results, the need for outpatient follow up, to return to the emergency department if symptoms worsen or persist or if there are any questions or concerns that arise at home. Response to treatment: the patient's symptoms have markedly improved after treatment. 01/08 09:32 Order name: Basic Metabolic Panel; Complete Time: 10:41 rt 01/08 09:32 Order name: CBC with Diff; Complete Time: 10:41 rt 01/08 09:32 Order name: LFT's; Complete Time: 10:41 rt 01/08 09:32 Order name: Magnesium; Complete Time: 10:41 rt 01/08 09:32 Order name: Troponin HS; Complete Time: 10:41 rt 01/08 09:32 Order name: EKG; Complete Time: 09:33 rt 01/08 09:32 Order name: Cardiac monitoring; Complete Time: 09:37 rt 01/08 09:32 Order name: EKG - Nurse/Tech; Complete Time: 09:51 rt 01/08 09:32 Order name: IV Saline Lock; Complete Time: 09:51 rt 01/08 09:32 Order name: Labs collected and sent; Complete Time: 09:51 rt 01/08 09:32 Order name: O2 Per Protocol; Complete Time: 09:38 rt 01/08 09:32 Order name: O2 Sat Monitoring; Complete Time: 09:38 rt EC:05 Rate is 92 beats/min. Rhythm is regular, Normal Sinus Rhythm with No ectopy. QRS [place] rt is Normal. [place] interval is normal. QRS interval is normal. QT interval is normal. No Q waves. T waves are Flattened. Administered Medications: 11:54 Drug: Ringers - Lactated Ringers Solution IV 1000 ml IV at calculated rate bolus; to be jl7 given as a bolus over 60 minutes Route: IV; Rate: calculated rate; Site: right antecubital; 15:15 Follow up: Response: No adverse reaction; IV Status: Completed infusion; IV Intake: jl7 1000ml 11:54 Drug: Potassium PO Effervescent Tablet 50 mEq PO once; dissolve in 4 ounces of water or jl7 juice Route: PO; 15:15 Follow up: Response: No adverse reaction jl7 11:54 Drug: Potassium Chloride IV 20 mEq IV at calculated rate once; administer over 1-2 jl7 hours Route: IV; Rate: calculated rate; Site: right antecubital; 12:30 Follow up: Response: No adverse reaction; IV Status: Completed infusion jl7 Disposition Summary: 01/08/25 14:36 Discharge Ordered Notes: Location: [facility] rt Problem: an ongoing problem rt Symptoms: have improved rt Condition: Stable rt Diagnosis - Hypokalemia rt Followup: rt - With: Private Physician - When: 2 - 3 days - Reason: Discharge Instructions: - Discharge Summary Sheet rt - Hypokalemia rt Forms: - Medication Reconciliation Form rt - Antibiotic Education rt - Prescription Opioid Use rt - Patient Portal Instructions rt - Leadership Thank You Letter rt Signatures: Dispatcher [employer] Temi Locke, RN RN Jaspal Clark RN RN jl7 Eneida Lyle RN RN ap3 Dominic Thorpe MD MD rt
[2025-01-08 16:58] VITALS: TEMP 97.8
[2025-01-08 17:03] VITALS: BP 130/68; O2SAT 99
--- NOTE | 2025-01-11 12:19 | EKG ---
Test Date: 2025-01-08 Test Time: 09:40:10 Manager Community: [facility] MEASUREMENT RESULTS: Intervals: Rate: 92 WV: 164 QRSD: 104 QT: 394 QTc: 487 [place]: P: 69 WV: 164 QRS: 60 T: 17 INTERPRETIVE STATEMENTS: Normal sinus rhythm Nonspecific T wave abnormality Prolonged QT Abnormal ECG Compared to ECG 12/08/2024 19:21:18 Possible ischemia no longer present T-wave abnormality still present Electronically Signed On 01-11-25 12:10:30 CDT by Faustino Hernández
== END 2025-01-08 16:21 ==
LOC: ER 09:30
DX: E87.6 Hypokalemia (principal); Z95.1 Presence of aortocoronary bypass graft
CPT/HCPCS: 96365; 96368; 93005; 85025; 80048; 36415; 83735; 80076; 84484; 99285; 96366; J3480; J7120

== ENCOUNTER 2025-01-11 14:09 | Emergency (ER) | payer OTHER ==
--- NOTE | 2025-01-11 15:40 | RAD REPORT ---
EXAM: CT Head Brain Wo Cont HISTORY: fall COMPARISON: 12/08/2024 TECHNIQUE: Multiple contiguous axial images were obtained for a CT of the brain without contrast. Sag ittal and coronal reformats were performed. One or more of the following dose reduction techniques were used: Automated exposure control, adjus tment of the mA and kV according to patient size, and iterative reconstruction. Unless otherwise specified, incidental findings do not require dedicated imaging follow-up. FINDINGS: No evidence of hydrocephalus, intracranial hemorrhage, or extra-axial fluid collection. Large effusion encephalomalacia involving the left parietal lobe, as well as smaller areas of encepha lomalacia in the parasagittal left frontal lobe, and right opercular cortex, stable. Other nonspecific mild burden of periventricular deep white matter hypodensities, stable, may suggest chron ic small vessel ischemic changes. No other findings to suggest acute territorial ischemia. Stable mild prominence of the ventricular caliber, suggesting centrally predominant volume loss, less likely sequelae of normal pressure hydrocephalus. The calvarium is intact. The visualized paranasal sinuses and mastoid air cells are essentially clear . IMPRESSION: No evidence of acute intracranial abnormality.
--- NOTE | 2025-01-11 16:50 | RAD REPORT ---
EXAMINATION: ONE VIEW CHEST XR CLINICAL INDICATION: Male, 69 years old.,fall TECHNIQUE: Frontal chest projection is submitted. Examination is limited by patient positioning and t echnique. COMPARISON: 12/08/2024 FINDINGS: The lungs are well inflated and clear. No pneumothorax or sizable effusion. The heart is normal in s ize. Mediastinal contours are unremarkable. IMPRESSION: No acute intrathoracic abnormalities.
--- NOTE | 2025-01-11 16:50 | RAD REPORT ---
Exam: XR Forearm Right Clinical history: PAIN Technique: 3 Radiographic views of the right forearm. Findings: No fracture or dislocation seen. Moderate degenerative changes of the wrist joint. Vascular calcifica tions. Soft tissue swelling which may represent a small hematoma along the dorsum of the proximal aspect of the forearm.
--- NOTE | 2025-01-11 16:51 | RAD REPORT ---
EXAMINATION: XR PELVIS CLINICAL INDICATION: Male, 69 years old. [facility] fall Bed Name: 7 TECHNIQUE: AP Pelvis radiograph was obtained. COMPARISON: No prior exam. FINDINGS: No evidence of fracture or dislocation. Normal alignment. No evidence of AVN. Mild degenera tive changes of the hip joints. Vascular stents along the proximal left femoral artery. Gaseous distention of the bowel in the lower abdomen. IMPRESSION: No acute osseous abnormalities. Gaseous distention of bowel in the lower abdomen.
--- NOTE | 2025-01-11 17:12 | EDPHYS ---
Physician Documentation [facility] Name: Donaldo English Age: 69 yrs Sex: Male : 1955 Arrival Date: 01/11/2025 Time: 14:09 Bed 7 Private MD: ED Physician Anton Ly HPI: 01/11 14:19 This 69 yrs old Male presents to ER via Unassigned with complaints of Fall Injury. rn 14:19 Details of fall: The patient fell from an upright position. Onset: The symptoms/episode rn began/occurred at an unknown time. Associated injuries: The patient sustained injury to the head. Severity of symptoms: At their worst the symptoms were mild, in the emergency department the symptoms are unchanged. The patient has experienced similar episodes in the past. The patient has not recently seen a physician. Patient brought in by EMS for fall. Family saw him fall on the camera in his room. Patient denies any injury or focal pain. Patient has bruise to right forearm. No LOC. Denies any chest pain or abdominal pain. No vomiting or diarrhea. No lower extremity injury.. Historical: - Allergies: 14:19 No Known Allergies; ap3 - PMHx: 14:19 Cerebrovascular accident; coronary atherosclerosis; Dementia; depressive disorder; ap3 diabetes mellitus; dysphasia (Speech disturbances); Hypertensive disorder; Hypothyroidism; Right sided weakness; schizoaffective disorder; Seizure; Speech disturbances; - PSHx: 14:19 Quadruple bipass; right foot; ap3 - Immunization history:: Adult Immunizations unknown. - Infectious Disease History:: Denies. - Social history:: Smoking status: unknown. - Family history:: not pertinent. - Hospitalizations: : No recent hospitalization is reported. ROS: 14:19 Constitutional: Negative for fever, chills, and weight loss, Eyes: Negative for injury, rn pain, redness, and discharge, Neck: Negative for injury, pain, and swelling, Cardiovascular: Negative for chest pain, palpitations, and edema, Respiratory: Negative for shortness of breath, cough, wheezing, and pleuritic chest pain, Abdomen/GI: Negative for abdominal pain, nausea, vomiting, diarrhea, and constipation, Back: Negative for injury and pain, MS/Extremity: Negative for injury and deformity, Skin: Negative for injury, rash, and discoloration, Neuro: Negative for headache, weakness, numbness, tingling, and seizure, Exam: 14:19 Constitutional: This is a well developed, well nourished patient who is awake, alert, rn and in no acute distress. Head/Face: Normocephalic, atraumatic. Neck: No midline cervical tenderness Chest/axilla: No rib tenderness or crepitus Cardiovascular: Regular rate and rhythm. No pulse deficits. Respiratory: No increased work of breathing, no retractions or nasal flaring. 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 No tenderness. No rebound or guarding. No masses. MS/ Extremity: No cyanosis. Right BKA noted with nikolas, wound is clean dry and intact, no foul smell Neuro: Awake and alert, GCS 15 Vital Signs: 14:17 BP 117 / 67; Pulse 79; Resp 17; Temp 97.6(A); Pulse Ox 97% on R/A; Weight 69.85 kg; ap3 15:59 BP 123 / 69; Pulse 83; Resp 17; Pulse Ox 97% ; ap3 17:06 BP 133 / 71; Pulse 83; Resp 17; Pulse Ox 97% on R/A; ap3 Nickolas Coma Score: 16:02 Eye Response: spontaneous(4). Motor Response: obeys commands(6). Verbal Response: ap3 oriented(5). Total: 15. Trauma Score (Adult): 16:02 Eye Response: spontaneous(1); Verbal Response: oriented(1); Motor Response: obeys ap3 commands(2); Systolic BP: > 89 mm Hg(4); Respiratory Rate: 10 to 29 per min(4); Nickolas Score: 15; Trauma Score: 12 MDM: 14:10 Medical Screening Exam initiated rn 17:09 Differential diagnosis: closed head injury, contusion, fracture. Data reviewed: vital rn signs, nurses notes, radiologic studies, CT scan, plain films, and as a result, I will discharge patient. Counseling: I had a detailed discussion with the patient and/or guardian regarding the historical points, exam findings, and any diagnostic results supporting the discharge/admit diagnosis, radiology results, the need for outpatient follow up, to return to the emergency department if symptoms worsen or persist or if there are any questions or concerns that arise at home. Special discussion: I discussed with the patient/guardian in detail that at this point there is no indication for admission to the hospital. It is understood, however, that if the symptoms persist or worsen the patient needs to return immediately for re-evaluation. ED course: No acute traumatic findings and imaging. X-ray pelvis negative, still shows gaseous distention of the lower abdomen but consistent with patient's known Delmy syndrome. Will discharge to retirement with return precautions. Patient still denies any focal pain. X-ray images also negative for acute fracture.. 01/11 14:16 Order name: CT Head Brain wo Cont; Complete Time: 15:45 rn 01/11 14:16 Order name: XRAY Forearm RIGHT; Complete Time: 17:05 rn 01/11 14:18 Order name: XRAY Pelvis; Complete Time: 17:05 rn 01/11 14:18 Order name: XRAY Chest (1 view); Complete Time: 17:05 rn Administered Medications: No medications were administered Disposition Summary: 01/11/25 17:11 Discharge Ordered Notes: Location: Home rn Problem: new rn Symptoms: have improved rn Condition: Stable rn Diagnosis - Unspecified injury of head, initial encounter rn - Contusion of right forearm rn Followup: rn - With: Private Physician - When: As needed - Reason: Recheck today's complaints, Re-evaluation by your physician Discharge Instructions: - Discharge Summary Sheet rn - Head Injury, Adult rn - Fall Prevention in the Home, Adult rn Forms: - Medication Reconciliation Form rn - Antibiotic fingernail sculpturer - Prescription Opioid Use rn - Patient Portal Instructions rn - Leadership Thank You Letter rn Signatures: Dispatcher [employer] Anton Jordan MD MD rn Prokisch, Amanda, RN RN ap3
--- NOTE | 2025-01-11 17:12 | ER ---
Nurse's Notes [facility] Name: Donaldo English Age: 69 yrs Sex: Male : 1955 Arrival Date: 01/11/2025 Time: 14:09 Bed 7 Private MD: Diagnosis: Unspecified injury of head, initial encounter;Contusion of right forearm Presentation: 01/11 14:17 Chief complaint: EMS states: they were called to [facility] for a reported [facility] fall that the family had witnessed through a camera. it is reported the patient had fallen out of his wheelchair. it is unknown if the patient had hit his head or not. patient is denying any pain at this time. Coronavirus screen: At this time, the client does not indicate any symptoms associated with coronavirus-19. Ebola Screen: No symptoms or risks identified at this time. Initial Sepsis Screen: Does the patient meet any 2 criteria? No. Patient's initial sepsis screen is negative. Does the patient have a suspected source of infection? No. Patient's initial sepsis screen is negative. Risk Assessment: Do you want to hurt yourself or someone else? Patient reports no desire to harm self or others. Onset of symptoms is unknown. Care prior to arrival: None. Transition of care: patient was received from another setting of care (long-term care facility), [facility]. 14:17 Method Of Arrival: EMS: [facility] 14:17 Acuity: LILIANA 3 ap3 14:17 Mechanism of Injury: Fall from wheelchair. Trauma event details: Injury occurred in the [address], Injury occurred: skilled nursing Injury occurred: January 11, 2025. 17:05 Care prior to arrival: None. ap3 Triage Assessment: 14:20 General: Appears in no apparent distress. Behavior is calm. Pain: Denies pain. Neuro: ap3 Level of Consciousness is awake, alert, obeys commands, Speech is normal. Cardiovascular: Patient's skin is warm and dry. Respiratory: Airway is patent Respiratory effort is even, unlabored, Respiratory pattern is regular, symmetrical. Musculoskeletal: patient has right BKA with existing nikolas. Historical: - Allergies: 14:19 No Known Allergies; ap3 - PMHx: 14:19 Cerebrovascular accident; coronary atherosclerosis; Dementia; depressive disorder; ap3 diabetes mellitus; dysphasia (Speech disturbances); Hypertensive disorder; Hypothyroidism; Right sided weakness; schizoaffective disorder; Seizure; Speech disturbances; - PSHx: 14:19 Quadruple bipass; right foot; ap3 - Immunization history:: Adult Immunizations unknown. - Infectious Disease History:: Denies. - Social history:: Smoking status: unknown. - Family history:: not pertinent. - Hospitalizations: : No recent hospitalization is reported. Screenin:21 Abuse screen: Denies threats or abuse. Nutritional screening: No deficits noted. ap3 Tuberculosis screening: No symptoms or risk factors identified. 17:04 [facility] ED Fall Risk Assessment (Adult) History of falling in the last 3 months, ap3 including since admission Yes- fall prone (multiple falls) (3 pts) Confusion or Disorientation Yes (5 pts) Intoxicated or Sedated No (0 pts) Impaired Gait Yes (1 pt) Mobility Assist Device Used Yes (1 pt) Altered Elimination Yes (1 pt) Score/Fall Risk Level 3 or more points = High Risk Oriented to surroundings, Maintained a safe environment, Educated pt \T\ family on fall prevention, incl call for assistance when getting out of bed, Assessed \T\ reinforced patient's understanding of fall precautions, Provided non-skid footwear, Hourly rounding (assess needs \T\ fall precautionary measures) done, Remained w/in arm's length of patient and in sight while toileting, Offered frequent toileting (1:1 observation), Remained with patient while ambulating. Primary Survey: 16:02 NO uncontrolled hemorrhage observed. A: The client is awake and alert. The airway is ap3 patent. Breathing/Chest: Spontaneous respiratory effort, equal unlabored respirations, breath sounds clear bilaterally, regular pattern, symmetrical chest rise and fall. Circulation: No external hemorrhage present. Regular and strong central pulse, skin warm/dry/normal color. Disability Client is alert. Exposure/Environment: A warming method has been applied: A warm blanket has been provided to the patient. Assessment: 17:04 Reassessment: No changes from previously documented assessment. Patient and/or family ap3 updated on plan of care and expected duration. Pain level reassessed. General: Appears in no apparent distress. Behavior is calm, cooperative. Neuro: Level of Consciousness is awake, alert, obeys commands, Oriented to person. 17:39 Reassessment: report called to [facility]. they will call back with ETA for transport. ap3 18:00 Reassessment: attempted to follow up with ETA for transport with [facility]. waited on ap3 hold for 10 min. no response. 18:40 Reassessment: spoke with [facility]. 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 ap3 Vital Signs: 14:17 BP 117 / 67; Pulse 79; Resp 17; Temp 97.6(A); Pulse Ox 97% on R/A; Weight 69.85 kg; ap3 15:59 BP 123 / 69; Pulse 83; Resp 17; Pulse Ox 97% ; ap3 17:06 BP 133 / 71; Pulse 83; Resp 17; Pulse Ox 97% on R/A; ap3 [place] Coma Score: 16:02 Eye Response: spontaneous(4). Motor Response: obeys commands(6). Verbal Response: ap3 oriented(5). Total: 15. Trauma Score (Adult): 16:02 Eye Response: spontaneous(1); Verbal Response: oriented(1); Motor Response: obeys ap3 commands(2); Systolic BP: > 89 mm Hg(4); Respiratory Rate: 10 to 29 per min(4); Brightwood Score: 15; Trauma Score: 12 ED Course: 14:10 Patient arrived in ED. rn 14:10 Anton Ly MD is Attending Physician. rn 14:17 Eneida Lyle, HIEN is Primary Nurse. ap3 14:19 Triage completed. ap3 14:22 Patient has correct armband on for positive identification. Bed in low position. Call ap3 light in reach. Side rails up X2. Client placed on continuous cardiac and pulse oximetry monitoring. NIBP monitoring applied. traffic monitor specialist on. Pulse ox on. NIBP on. 14:22 Arm band placed on right wrist. ap3 14:22 Provided Education on: call light education. ap3 14:22 Patient maintains SpO2 saturation greater than 95% on room air. ap3 14:22 Thermoregulation: warm blanket given to patient. ap3 14:26 CT Head Brain wo Cont In Process Unspecified. EDMS 14:55 XRAY Forearm RIGHT In Process Unspecified. EDMS 14:55 XRAY Pelvis In Process Unspecified. EDMS 14:55 XRAY Chest (1 view) In Process Unspecified. EDMS 18:17 No provider procedures requiring assistance completed. Patient did not have IV access ap3 during this emergency room visit. Administered Medications: No medications were administered Medication: 14:22 VIS not applicable for this client. ap3 Outcome: 17:11 Discharge ordered by . rn 18:47 Discharged to skilled nursing. Report called to skilled nursing. ap3 18:47 Condition: stable 18:47 Discharge instructions given to skilled nursing, Instructed on discharge instructions, follow up and referral plans. Demonstrated understanding of instructions, follow-up care, 18:48 Patient left the ED. ap3 Signatures: Dispatcher [employer] EDOH Anton Ly MD MD rn Eneida Lyle RN RN ap3
[2025-01-12 19:59] VITALS: TEMP 97.6; O2SAT 97
[2025-01-12 20:02] VITALS: BP 133/71
== END 2025-01-11 18:48 | disposition home or self-care (01) ==
LOC: ER 14:09
DX: S09.90XA Unspecified injury of head, initial encounter (principal); S50.11XA Contusion of right forearm, initial encounter; W18.30XA Fall on same level, unspecified, initial encounter; Z86.73 Personal history of transient ischemic attack (TIA), and cerebral infarction without residual deficits; Z95.1 Presence of aortocoronary bypass graft
CPT/HCPCS: 70450; 71045; 72170; 99284

== ENCOUNTER 2025-01-12 09:53 | Emergency (ER) | payer OTHER, MEDICAID ==
[2025-01-12] MEDS ORDERED: LEVETIRACETAM 500 MG/5 ML VIAL IV ONE (10:24)
[2025-01-12] MEDS ORDERED: NA CHLORIDE 0.9% 100 ML ONE (10:24)
[2025-01-12 10:31] LABS: Absolute Eosinophils 0.1 K/uL (0-0.5); Absolute Lymphocytes (CBC) 0.8 K/uL (0.7-4.9); Absolute Monocytes 0.7 K/uL (0.1-1.3); Absolute Neutrophil 6.1 K/uL (1.8-8.0); Basophils % 0.6 % (0-1.3); Eosinophils % 1.8 % (0-4.4); Hematocrit 29.5 % (39.6-49.0); Hemoglobin 9.9 g/dL (13.6-17.9); Lymphocytes % 10.3 % (15.3-44.8); MCH 27.1 pg (27.0-35.0); MCHC 33.5 g/dL (32.0-36.0); MCV 80.8 fL (80-100); MPV 8.4 fL (7.6-11.3); Monocytes % 8.8 % (3.3-12.3); Neutrophils % 78.5 % (41.7-73.7); Platelets 157 thou/uL (152-406); RBC Red Blood Cell Count 3.65 M/uL (4.33-5.43); Red Cell Distribution Width 18.6 % (12.1-15.2)
[2025-01-12] MEDS ORDERED: NA CHLORIDE 0.9% 500 ML ONE (11:03)
--- NOTE | 2025-01-12 11:08 | RAD REPORT ---
EXAM: CT brain without contrast HISTORY: Seizure COMPARISON: January 03, 2025 TECHNIQUE: Multiple contiguous axial images were obtained and a CT of the brain without contrast.. Sagittal and coronal reconstruction performed. Automated exposure control, adjustment of the mA and/or kV according to patient size, and/or iterative reconstruction. Unless otherwise specified, incidental f indings do not require dedicated imaging follow-up FINDINGS: An intracranial bleed is not seen Ventricles are normal caliber No extra-axial fluid collection noted Cystic encephalomalacia left cerebrum unchanged. Small old left frontal lobe infarct Prominent cerebral atrophy. Mild to moderate low-density paraventricular, deep and subcortical white matter likely ischemic changes secondary to small vessel disease. No fluid within the visualized sinuses or mastoids noted. IMPRESSION: No acute intracranial abnormality noted. If the patient continues to have symptoms to suggest an acute intracranial abnormality then MRI of th e brain would be recommended.
--- NOTE | 2025-01-12 11:21 | ER ---
Nurse's Notes [facility] Name: Donaldo English Age: 69 yrs Sex: Male : 1955 Arrival Date: 01/12/2025 Time: 09:53 Bed 18 Private MD: Diagnosis: Possible seizure Presentation: 01/12 10:04 Chief complaint: EMS states: [facility] reports pt was slumped over in his chair and drooling iw and they wanted to get home checked out, he was seen here for a fall yesterday . pt denies pain, does not remember what happened , oriented to baseline. Coronavirus screen: At this time, the client does not indicate any symptoms associated with coronavirus-19. Ebola Screen: No symptoms or risks identified at this time. Initial Sepsis Screen: Does the patient meet any 2 criteria? No. Patient's initial sepsis screen is negative. Does the patient have a suspected source of infection? No. Patient's initial sepsis screen is negative. Risk Assessment: Do you want to hurt yourself or someone else? Patient reports no desire to harm self or others. Onset of symptoms was January 12, 2025. 10:04 Method Of Arrival: EMS: [facility] iw 10:04 Acuity: LILIANA 3 iw 10:05 Care prior to arrival: Glucose check: 246. iw Triage Assessment: 10:06 General: Appears in no apparent distress. Behavior is calm, cooperative. Pain: Denies iw pain. Neuro: Level of Consciousness is awake, alert, obeys commands. Historical: - Allergies: 10:05 No Known Allergies; iw - Home Meds: 10:07 levothyroxine 125 mcg tablet daily [Active]; hydrocodone-acetaminophen 5-325 mg Oral iw tablet every 6 hours [Active]; Lantus U-100 Insulin 100 unit/mL Sub-Q solution 26 units 2 times per day [Active]; Novolog U-100 Insulin aspart 100 unit/mL Sub-Q solution 2 times per day [Active]; metoprolol tartrate 25 mg Oral tablet 2 times per day [Active]; Keppra 100 mg/mL Oral solution 2 times per day [Active]; aripiprazole 5 mg oral tablet nightly [Active]; atorvastatin 40 mg oral tablet every day at bedtime [Active]; rivastigmine tartrate 1.5 mg oral capsule 2 times per day [Active]; Depakote Sprinkles 125 mg Oral Capsule, Delayed Release Sprinkle 2 times per day [Active]; spironolactone 25 mg Oral tablet 2 times per day [Active]; lisinopril 20 mg Oral tablet twice a day [Active]; sertraline 50 mg oral tablet daily [Active]; omeprazole 20 mg Oral tablet, delayed release (enteric coated) daily [Active]; furosemide 20 mg Oral tablet daily [Active]; Lactobacillus acidophilus oral capsule daily [Active]; gabapentin 100 mg oral capsule daily [Active]; clopidogrel 75 mg oral tablet daily [Active]; Januvia 100 mg oral tablet daily [Active]; aspirin 325 mg Oral capsule daily [Active]; amlodipine 5 mg tablet daily [Active]; lactulose 10 gram/15 mL Oral solution as needed [Active]; acetaminophen 650 mg Oral tablet, extended release 1 tab as needed [Active]; hydroxyzine HCl 50 mg Oral tablet every 4 hours as needed for agitation [Active]; - PMHx: 10:05 Cerebrovascular accident; Dementia; coronary atherosclerosis; depressive disorder; iw diabetes mellitus; Hypertensive disorder; Hypothyroidism; Right sided weakness; schizoaffective disorder; Seizure; Speech disturbances; 10:16 Seizure; dysphasia (Speech disturbances); iw - PSHx: 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 - Infectious Disease History:: Denies. - Family history:: not pertinent. - Social history:: Smoking status: . - Hospitalizations: : No recent hospitalization is reported. Screenin:07 Abuse screen: Denies threats or abuse. Nutritional screening: No deficits noted. ap3 Tuberculosis screening: No symptoms or risk factors identified. 10:10 [facility] ED Fall Risk Assessment (Adult) History of falling in the last 3 months, me1 including since admission No falls in past 3 months (0 pts) Confusion or Disorientation Yes (5 pts) Intoxicated or Sedated No (0 pts) Impaired Gait Yes (1 pt) Mobility Assist Device Used Yes (1 pt) Altered Elimination Yes (1 pt) Score/Fall Risk Level 0 - 2 = Low Risk Maintained a safe environment, Provided non-skid footwear, Hourly rounding (assess needs \T\ fall precautionary measures) done. Assessment: 10:10 General: Appears in no apparent distress. Behavior is calm, cooperative, appropriate me1 for age, quiet. Pain: Complains of pain in right leg Pain does not radiate. Pain currently is 4 out of 10 on a pain scale. Quality of pain is described as aching, Pain began suddenly, Is continuous. Neuro: Level of Consciousness is awake, alert, obeys commands, Oriented to person, place, time, situation, Appropriate for age. Neuro: Seizure activity reported prior to arrival. Cardiovascular: Patient's skin is warm and dry. Respiratory: Airway is patent Respiratory effort is even, unlabored, Respiratory pattern is regular, symmetrical. GI: No signs and/or symptoms were reported involving the gastrointestinal system. : No signs and/or symptoms were reported regarding the genitourinary system. EENT: No signs and/or symptoms were reported regarding the EENT system. Derm: Skin is intact, is healthy with good turgor, Skin is pink, warm \T\ dry. Musculoskeletal: No signs and/or symptoms reported regarding the musculoskeletal system. 11:41 General: Called Ora Mena LVN at [facility] and gave report. [facility] is setting me1 up transport for patient to return to [place]. Called Brooke (daughter) to update her on patient's status/discharge. . Vital Signs: 10:04 BP 104 / 40; Pulse 86; Resp 19; Temp 98; Pulse Ox 100% on R/A; Weight 84.37 kg; Pain iw 0/10; 11:00 BP 127 / 50; Pulse 82; Resp 17; Pulse Ox 97% ; me1 12:00 BP 132 / 57; Pulse 82; Resp 16; Pulse Ox 98% ; me1 12:58 BP 125 / 57; Pulse 84; Resp 18; Pulse Ox 100% ; me1 10:04 Pain Scale: Adult iw ED Course: 09:55 Patient arrived in ED. iw 09:56 Anton Ly MD is Attending Physician. rn 10:05 Triage completed. iw 10:05 Arm band placed on. iw 10:07 Client placed on continuous cardiac and pulse oximetry monitoring. NIBP monitoring ap3 applied. radiation monitor on. Pulse ox on. NIBP on. 10:10 Patient has correct armband on for positive identification. Bed in low position. Call me1 light in reach. Side rails up X2. Provided Education on: POC. Verbalized understanding.. 10:10 No provider procedures requiring assistance completed. me1 10:19 Chio Hernandez, RN is Primary Nurse. me1 10:19 Initial lab(s) drawn, by me, sent to lab. EKG done, by ED staff, reviewed by Anton Ly MD. Inserted saline lock: 22 gauge in right antecubital area, using aseptic technique. 10:39 CT Head Brain wo Cont In Process Unspecified. EDMS 11:46 IV discontinued, intact, bleeding controlled, No redness/swelling at site. Pressure me1 dressing applied. Administered Medications: 10:41 Drug: Keppra IV 1000 mg IV at calculated rate once Route: IV; Rate: calculated rate; me1 Site: right antecubital; 11:07 Follow up: Response: No adverse reaction; IV Status: Completed infusion me1 11:07 Drug: NS 0.9% IV 500 ml 500 ml IV at 1 bolus once; to be given as a bolus over 30 me1 minutes Volume: 500 ml; Route: IV; Rate: 1 bolus; Site: right antecubital; 11:52 Follow up: Response: No adverse reaction; IV Status: Completed infusion me1 Medication: 10:10 VIS not applicable for this client. me1 Outcome: 11:21 Discharge ordered by . rn 13:35 [facility] Report called to Ora Mena LVN me1 13:35 Condition: stable 13:35 Instructed on discharge instructions, follow up and referral plans. Demonstrated understanding of instructions, follow-up care, 13:37 Patient left the ED. me1 Signatures: Dispatcher [employer] Judy Thomas RN RN iw Anton Ly MD MD rn Prokisch, Amanda, RN RN ap3 Chio Hernandez, HIEN RN me1 Corrections: (The following items were deleted from the chart) 11:18 10:04 Chief complaint: EMS states: [place] reports pt was slumped over in his chair and me1 drooling and they wanted to get home checked out, he was seen here for a fall yesterday . pt denies pain, does not remember what happened , oriented to baseline iw
--- NOTE | 2025-01-12 11:21 | EDPHYS ---
Physician Documentation [facility] Name: Donaldo English Age: 69 yrs Sex: Male : 1955 Arrival Date: 01/12/2025 Time: 09:53 Bed 18 Private MD: ED Physician Anton Ly HPI: 01/12 10:58 This 69 yrs old Male presents to ER via EMS with complaints of Altered Mental Status. rn 10:58 The patient presents with decreased responsiveness. Onset: The symptoms/episode rn began/occurred this morning. Associated signs and symptoms: Pertinent negatives: abdominal pain, chest pain, shortness of breath. Current symptoms: In the emergency department the patient's symptoms have resolved, have improved. Patient brought in by EMS from detention as he was found slumped over drooling and his seat. Patient has known history of seizures, takes Keppra and Depakote, no seizure witnessed but exhibited decreased responsiveness. By the time EMS got there patient was awake and oriented at his baseline. Despite having known seizure disorder, detention wanted patient "checked out". Patient has no complaints. Just seen yesterday with negative workup after a fall. Patient seems the same as he was yesterday.. Historical: - Allergies: 10:05 No Known Allergies; iw - Home Meds: 10:07 levothyroxine 125 mcg tablet daily [Active]; hydrocodone-acetaminophen 5-325 mg Oral iw tablet every 6 hours [Active]; Lantus U-100 Insulin 100 unit/mL Sub-Q solution 26 units 2 times per day [Active]; Novolog U-100 Insulin aspart 100 unit/mL Sub-Q solution 2 times per day [Active]; metoprolol tartrate 25 mg Oral tablet 2 times per day [Active]; Keppra 100 mg/mL Oral solution 2 times per day [Active]; aripiprazole 5 mg oral tablet nightly [Active]; atorvastatin 40 mg oral tablet every day at bedtime [Active]; rivastigmine tartrate 1.5 mg oral capsule 2 times per day [Active]; Depakote Sprinkles 125 mg Oral Capsule, Delayed Release Sprinkle 2 times per day [Active]; spironolactone 25 mg Oral tablet 2 times per day [Active]; lisinopril 20 mg Oral tablet twice a day [Active]; sertraline 50 mg oral tablet daily [Active]; omeprazole 20 mg Oral tablet, delayed release (enteric coated) daily [Active]; furosemide 20 mg Oral tablet daily [Active]; Lactobacillus acidophilus oral capsule daily [Active]; gabapentin 100 mg oral capsule daily [Active]; clopidogrel 75 mg oral tablet daily [Active]; Januvia 100 mg oral tablet daily [Active]; aspirin 325 mg Oral capsule daily [Active]; amlodipine 5 mg tablet daily [Active]; lactulose 10 gram/15 mL Oral solution as needed [Active]; acetaminophen 650 mg Oral tablet, extended release 1 tab as needed [Active]; hydroxyzine HCl 50 mg Oral tablet every 4 hours as needed for agitation [Active]; - PMHx: 10:05 Cerebrovascular accident; Dementia; coronary atherosclerosis; depressive disorder; iw diabetes mellitus; Hypertensive disorder; Hypothyroidism; Right sided weakness; schizoaffective disorder; Seizure; Speech disturbances; 10:16 Seizure; dysphasia (Speech disturbances); iw - PSHx: 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 - Infectious Disease History:: Denies. - Family history:: not pertinent. - Social history:: Smoking status: . - Hospitalizations: : No recent hospitalization is reported. ROS: 10:58 Constitutional: Negative for fever, chills, and weight loss, ENT: Negative for injury, rn pain, and discharge, Neck: Negative for injury, pain, and swelling, Cardiovascular: Negative for chest pain, palpitations, and edema, Respiratory: Negative for shortness of breath, cough, wheezing, and pleuritic chest pain, Abdomen/GI: Negative for abdominal pain, nausea, vomiting, diarrhea, and constipation, Back: Negative for injury and pain, Neuro: Negative for focal weakness Exam: 10:57 ECG was reviewed by the Attending Physician. rn 10:58 Constitutional: This is a well developed, well nourished patient who is awake, alert, rn and in no acute distress. Head/Face: Normocephalic, atraumatic. Eyes: Pupils equal round and reactive to light, extra-ocular motions intact. Lids and lashes normal. Conjunctiva and sclera are non-icteric and not injected. Cornea within normal limits. Periorbital areas with no swelling, redness, or edema. ENT: Dry mucous membranes Neck: No midline cervical tenderness Chest/axilla: No rib tenderness or crepitus Cardiovascular: Regular rate and rhythm. No pulse deficits. Respiratory: No increased work of breathing, no retractions or nasal flaring. Abdomen/GI: Soft, nontender Back: No spinal tenderness MS/ Extremity: Right BKA, no purulence or foul smell. No evidence of infection Neuro: Awake, alert, oriented to person place not time. Vital Signs: 10:04 BP 104 / 40; Pulse 86; Resp 19; Temp 98; Pulse Ox 100% on R/A; Weight 84.37 kg; Pain iw 0/10; 11:00 BP 127 / 50; Pulse 82; Resp 17; Pulse Ox 97% ; me1 12:00 BP 132 / 57; Pulse 82; Resp 16; Pulse Ox 98% ; me1 12:58 BP 125 / 57; Pulse 84; Resp 18; Pulse Ox 100% ; me1 10:04 Pain Scale: Adult iw MDM: 09:56 Medical Screening Exam initiated rn 11:19 Differential Diagnosis: seizure, volume depletion, Syncope. Data reviewed: vital signs, rn nurses notes, lab test result(s), radiologic studies, CT scan, and as a result, I will discharge patient. Counseling: I had a detailed discussion with the patient and/or guardian regarding the historical points, exam findings, and any diagnostic results supporting the discharge/admit diagnosis, lab results, radiology results, the need for outpatient follow up, to return to the emergency department if symptoms worsen or persist or if there are any questions or concerns that arise at home. Special discussion: I discussed with the patient/guardian in detail that at this point there is no indication for admission to the hospital. It is understood, however, that if the symptoms persist or worsen the patient needs to return immediately for re-evaluation. ED course: Patient completely back to baseline. CT head no acute findings. Patient with known seizure disorder, loaded with Keppra and back at baseline. Will discharge home with return precautions. 01/12 09:57 Order name: CBC with Diff; Complete Time: 10:52 rn 01/12 09:57 Order name: Basic Metabolic Panel; Complete Time: 10:52 rn 01/12 09:57 Order name: CT Head Brain wo Cont; Complete Time: 11:09 rn 01/12 09:57 Order name: IV Start; Complete Time: 12:59 rn 01/12 09:57 Order name: EKG - Nurse/Tech; Complete Time: 09:59 rn 01/12 09:59 Order name: Cardiac monitoring; Complete Time: 10:06 rn 01/12 09:59 Order name: O2 Sat Monitoring; Complete Time: 10:06 rn EC:57 Rate is 86 beats/min. Rhythm is regular. QRS [place] is Normal. NE interval is normal. QRS rn interval is normal. QT interval is normal. No Q waves. T waves are Normal. No ST changes noted. Clinical impression: Normal ECG. Interpreted by me. Reviewed by me. Administered Medications: 10:41 Drug: Keppra IV 1000 mg IV at calculated rate once Route: IV; Rate: calculated rate; me1 Site: right antecubital; 11:07 Follow up: Response: No adverse reaction; IV Status: Completed infusion me1 11:07 Drug: NS 0.9% IV 500 ml 500 ml IV at 1 bolus once; to be given as a bolus over 30 me1 minutes Volume: 500 ml; Route: IV; Rate: 1 bolus; Site: right antecubital; 11:52 Follow up: Response: No adverse reaction; IV Status: Completed infusion me1 Disposition Summary: 01/12/25 11:21 Discharge Ordered Notes: Location: Home rn Problem: new rn Symptoms: have improved rn Condition: Stable rn Diagnosis - Possible seizure rn Followup: rn - With: Private Physician - When: As needed - Reason: Recheck today's complaints, Re-evaluation by your physician Discharge Instructions: - Discharge Summary Sheet rn - Seizure, Adult rn Forms: - Medication Reconciliation Form rn - Antibiotic wellness rn - Prescription Opioid Use rn - Patient Portal Instructions rn - Leadership Thank You Letter rn Signatures: Dispatcher [employer] EDJudy Ellison RN Anton Tom MD MD rn Prokisch, Amanda, RN RN ap3 Chio Hernandez RN RN me1 Corrections: (The following items were deleted from the chart) 09: 09:57 CBC+H.LAB.BRZ ordered. EDMS EDMS 09:57 09:57 BASIC METABOLIC PANEL+C.LAB.BRZ ordered. EDMS EDMS
[2025-01-13 04:43] VITALS: TEMP 98
[2025-01-13 04:57] VITALS: BP 125/57; O2SAT 100
--- NOTE | 2025-01-13 12:36 | EKG ---
Test Date: 2025-01-12 Test Time: 10:08:52 Rn Heart: Rigo LUCAS MEASUREMENT RESULTS: Intervals: Rate: 86 [place]: 170 QRSD: 84 QT: 400 QTc: 478 [place]: P: 71 [place]: 170 QRS: 17 T: -14 INTERPRETIVE STATEMENTS: Normal sinus rhythm Normal ECG Compared to ECG 01/08/2025 09:40:10 T-wave abnormality no longer present Prolonged QT interval no longer present Electronically Signed On 01-13-25 12:35:58 CDT by Faustino Hernández
== END 2025-01-12 13:37 | disposition home or self-care (01) ==
LOC: ER 09:53
DX: R41.82 Altered mental status, unspecified (principal); G40.909 Epilepsy, unspecified, not intractable, without status epilepticus; E11.9 Type 2 diabetes mellitus without complications; Z79.4 Long term (current) use of insulin; I10 Essential (primary) hypertension; E03.9 Hypothyroidism, unspecified; Z86.73 Personal history of transient ischemic attack (TIA), and cerebral infarction without residual deficits; Z95.1 Presence of aortocoronary bypass graft; Z89.511 Acquired absence of right leg below knee
CPT/HCPCS: 85025; 80048; 36415; 70450; J1953; J7040; 93005

== ENCOUNTER 2025-05-04 10:11 | Inpatient (IN) | payer OTHER, MEDICAID ==
[2025-05-04] MEDS ORDERED: VANCOMYCIN 1 GM/VIAL ONE (10:26)
[2025-05-04] MEDS ORDERED: NA CHLORIDE 0.9% 250 ML ONE (10:26)
[2025-05-04] MEDS ORDERED: NA CHLORIDE 0.9% 100 ML ONE (10:26)
[2025-05-04] MEDS ORDERED: PIPERACIL/TAZO 3.375 GM VIAL IV ONE (10:27)
[2025-05-04 11:13] LABS: Absolute Lymphocytes (CBC) 1.2 K/uL (0.7-4.9); Hematocrit 37.4 % (39.6-49.0); Hemoglobin 12.4 g/dL (13.6-17.9); MCH 26.9 pg (27.0-35.0); MCHC 33.3 g/dL (32.0-36.0); MCV 80.6 fL (80-100); MPV 8.0 fL (7.6-11.3); Nucleated RBC Absolute Count 0.0 (0-0); Nucleated Red Blood Cells % 0.1 % (0-0); RBC Red Blood Cell Count 4.63 M/uL (4.33-5.43); White Blood Count 13.40 thou/uL (4.3-10.9)
--- NOTE | 2025-05-04 11:41 | RAD REPORT ---
Exam:Foot Left 3 View CLINICAL HISTORY: Left foot pain FINDINGS: No fracture or dislocation seen No bony destructive lesion seen.
--- NOTE | 2025-05-04 12:00 | ER ---
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 Flores from [facility] for left hb great toe infection. Coronavirus screen: At this time, the client does not indicate any symptoms associated with coronavirus-19. Ebola Screen: No symptoms or risks identified at this time. Initial Sepsis Screen: Does the patient meet any 2 criteria? No. Patient's initial sepsis screen is negative. Does the patient have a suspected source of infection? No. Patient's initial sepsis screen is negative. Risk Assessment: Do you want to hurt yourself or someone else? Patient reports no desire to harm self or others. Onset of symptoms is unknown. 10:19 Method Of Arrival: EMS: [facility] hb 10:19 Acuity: LILIANA 3 hb Triage Assessment: 10:26 General: Appears in no apparent distress. Behavior is calm, cooperative. Pain: Pain hb currently is 2 out of 10 on a pain scale. EENT: No signs and/or symptoms were reported regarding the EENT system. Neuro: Level of Consciousness is awake, alert, obeys commands, Oriented to person, place, situation. Cardiovascular: Patient's skin is warm and dry. Respiratory: Respiratory effort is even, unlabored, Respiratory pattern is regular, symmetrical. GI: No signs and/or symptoms were reported involving the gastrointestinal system. : No signs and/or symptoms were reported regarding the genitourinary system. Derm: Skin is pink, warm \T\ dry. left great toe wound, unstageable. Musculoskeletal: No signs and/or symptoms reported regarding the musculoskeletal system. Historical: - Allergies: 10:21 No Known Allergies; hb - Home Meds: 10:22 acetaminophen 650 mg Oral tablet 1 tab as needed [Active]; amlodipine 5 mg tablet daily hb [Active]; aripiprazole 5 mg Oral tablet nightly [Active]; aspirin 325 mg Oral capsule daily [Active]; atorvastatin 40 mg Oral tablet every day at bedtime [Active]; clopidogrel 75 mg Oral tablet daily [Active]; Depakote Sprinkles 125 mg Oral Capsule 2 times per day [Active]; furosemide 20 mg Oral tablet daily [Active]; gabapentin 100 mg Oral capsule daily [Active]; hydrocodone-acetaminophen 5-325 mg Oral tablet every 6 hours [Active]; hydroxyzine HCl 50 mg Oral tablet every 4 hours as needed for agitation [Active]; Januvia 100 mg Oral tablet daily [Active]; Keppra 100 mg/mL Oral solution 2 times per day [Active]; Lactobacillus acidophilus Oral capsule daily [Active]; lactulose 10 gram/15 mL Oral solution as needed [Active]; Lantus U-100 Insulin 100 unit/mL Sub-Q solution 26 units 2 times per day [Active]; levothyroxine 125 mcg tablet daily [Active]; lisinopril 20 mg Oral tablet twice a day [Active]; metoprolol tartrate 25 mg Oral tablet 2 times per day [Active]; Novolog U-100 Insulin aspart 100 unit/mL Sub-Q solution 2 times per day [Active]; omeprazole 20 mg Oral tablet daily [Active]; rivastigmine tartrate 1.5 mg Oral capsule 2 times per day [Active]; sertraline 50 mg oral tablet daily [Active]; spironolactone 25 mg Oral tablet 2 times per day [Active]; - PMHx: 10:21 Hypothyroidism; Seizure; Speech disturbances; schizoaffective disorder; diabetes hb mellitus; Dementia; 10:22 Dysphagia; HTN; hb 10:24 CVA; Right sided weakness; Depression; CAD; hb - PSHx: 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 - Infectious Disease History:: Denies. - Social history:: Smoking status: unknown. Screenin:27 [facility] ED Fall Risk Assessment (Adult) History of falling in the last 3 months, hb including since admission No falls in past 3 months (0 pts) Confusion or Disorientation No (0 pts) Intoxicated or Sedated No (0 pts) Impaired Gait Yes (1 pt) Mobility Assist Device Used Yes (1 pt) Altered Elimination Yes (1 pt) Score/Fall Risk Level 3 or more points = High Risk Oriented to surroundings, Maintained a safe environment, Educated pt \T\ family on fall prevention, incl call for assistance when getting out of bed. Abuse screen: Denies threats or abuse. Denies injuries from another. Nutritional screening: No deficits noted. Tuberculosis screening: No symptoms or risk factors identified. Assessment: 10:27 General: See triage assessment . hb Vital Signs: 10:19 BP 118 / 53; Pulse 63; Resp 14; Temp 97.9(O); Pulse Ox 100% on R/A; Pain 2/10; hb 12:26 BP 133 / 62; Pulse 73; Resp 15; Pulse Ox 100% ; bp 10:19 Pain Scale: Adult hb ED Course: 10:18 Patient arrived in ED. hb 10:18 Elizabeth Perez MD is Attending Physician. sp3 10:19 Man Farrar, RN is Primary Nurse. bp 10:21 Triage completed. hb 10:26 Arm band placed on. hb 10:27 Patient has correct armband on for positive identification. Bed in low position. Call hb light in reach. Provided Education on: call light . Client placed on continuous cardiac and pulse oximetry monitoring. NIBP monitoring applied. executive recruiter on. Pulse ox on. NIBP on. 11:00 Inserted saline lock: 24 gauge in right wrist, using aseptic technique. Blood bp collected. Flushed with 10 mL NS. 11:14 Foot Left 3 View XRAY In Process Unspecified. EDMS 11:59 Jt Jimenes is Hospitalizing Provider. sp3 Administered Medications: 10:55 Drug: Piperacillin-Tazobactam IVPB 3.375 grams IVPB once over 60 mins; (mix in NS 100 bp mL) Route: IVPB; Infused Over: 60 mins; Site: right forearm; 12:00 Drug: vancoMYCIN IVPB 1 grams IVPB once over 2 hrs Route: IVPB; Infused Over: 2 hrs; bp Site: right forearm; 12:15 Drug: NS 0.9% IV 1000 ml IV at 1 bolus Per protocol; to be given as a bolus over 60 bp minutes Route: IV; Rate: 1 bolus; Site: right forearm; Medication: 10:27 VIS not applicable for this client. hb Outcome: 11:59 Decision to Hospitalize by Provider. sp3 14:23 Patient left the ED. iw Signatures: Dispatcher [employer] EDAL Judy Ruiz RN RN Temi Crespo RN RN Man Farrar, RN RN Elizabeth Reddy MD MD sp3 Corrections: (The following items were deleted from the chart) 10: PMHx: depressive disorder; hb hb : PMHx: Right sided weakness; hb hb : PMHx: coronary atherosclerosis; hb hb : 10: PMHx: CVA (Dementia); hb hb : PMHx: HTN (Dementia); hb hb 10: Home Meds: aripiprazole 5 mg Oral tablet nightly; hb hb 10: PMHx: CVA; hb hb : PMHx: Cerebrovascular accident; hb hb : PMHx: Hypertensive disorder; hb hb 10: PMHx: Seizure; hb hb 10: PMHx: dysphasia (Speech disturbances); hb hb
--- NOTE | 2025-05-04 12:00 | EDPHYS ---
Physician Documentation [facility] Name: Donaldo English Age: 69 yrs Sex: Male : 1955 Arrival Date: 05/04/2025 Time: 10:11 Bed 7 Private MD: ED Physician Elizabeth Perez HPI: 05/04 10:25 This 69 yrs old Male presents to ER via EMS with complaints of left foot/great toe sp3 infection. 10:25 69-year-old male with history of prior CVA, dementia, diabetes presents with right BKA sp3 wound bleeding with left great toe pain and swelling sent by long term for evaluation. Patient sees Dr. Flores for wound care. Limited ROS, history and physical secondary to dementia.. Historical: - Allergies: 10:21 No Known Allergies; hb - Home Meds: 10:22 acetaminophen 650 mg Oral tablet 1 tab as needed [Active]; amlodipine 5 mg tablet daily hb [Active]; aripiprazole 5 mg Oral tablet nightly [Active]; aspirin 325 mg Oral capsule daily [Active]; atorvastatin 40 mg Oral tablet every day at bedtime [Active]; clopidogrel 75 mg Oral tablet daily [Active]; Depakote Sprinkles 125 mg Oral Capsule 2 times per day [Active]; furosemide 20 mg Oral tablet daily [Active]; gabapentin 100 mg Oral capsule daily [Active]; hydrocodone-acetaminophen 5-325 mg Oral tablet every 6 hours [Active]; hydroxyzine HCl 50 mg Oral tablet every 4 hours as needed for agitation [Active]; Januvia 100 mg Oral tablet daily [Active]; Keppra 100 mg/mL Oral solution 2 times per day [Active]; Lactobacillus acidophilus Oral capsule daily [Active]; lactulose 10 gram/15 mL Oral solution as needed [Active]; Lantus U-100 Insulin 100 unit/mL Sub-Q solution 26 units 2 times per day [Active]; levothyroxine 125 mcg tablet daily [Active]; lisinopril 20 mg Oral tablet twice a day [Active]; metoprolol tartrate 25 mg Oral tablet 2 times per day [Active]; Novolog U-100 Insulin aspart 100 unit/mL Sub-Q solution 2 times per day [Active]; omeprazole 20 mg Oral tablet daily [Active]; rivastigmine tartrate 1.5 mg Oral capsule 2 times per day [Active]; sertraline 50 mg oral tablet daily [Active]; spironolactone 25 mg Oral tablet 2 times per day [Active]; - PMHx: 10:21 Hypothyroidism; Seizure; Speech disturbances; schizoaffective disorder; diabetes hb mellitus; Dementia; 10:22 Dysphagia; HTN; hb 10:24 CVA; Right sided weakness; Depression; CAD; hb - PSHx: 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 - Infectious Disease History:: Denies. - Social history:: Smoking status: unknown. ROS: 10:26 Unable to obtain ROS due to baseline dementia, sp3 Exam: 10:26 Musculoskeletal/extremity: Vital signs normal. Grossly normal exam overall. Left sp3 great toe is swollen, erythematous and open ulcer noted.. 10:26 Unable to obtain exam due to baseline dementia, Vital Signs: 10:19 BP 118 / 53; Pulse 63; Resp 14; Temp 97.9(O); Pulse Ox 100% on R/A; Pain 2/10; hb 12:26 BP 133 / 62; Pulse 73; Resp 15; Pulse Ox 100% ; bp 10:19 Pain Scale: Adult hb MDM: 10:18 Medical Screening Exam initiated sp3 10:26 Data reviewed: vital signs, nurses notes, old medical records, lab test result(s), sp3 radiologic studies. ED course: Left great toe infection versus osteomyelitis versus cellulitis as differential diagnosis. Workup will include foot x-ray, general labs, cultures and treatment with IV antibiotics with probable admission. Will consult Dr. Flores inpatient side... 11:58 ED course: Patient with elevated lactate of 2.5. Mild leukocytosis also noted. X-ray sp3 demonstrates no osteomyelitis. I discussed case with Dr. Flores. Will admit to hospitalist, start antibiotics, IV fluids and surgical consultation.. 05/04 10:20 Order name: Blood Culture Adult (2) sp3 05/04 10:20 Order name: CBC with Diff; Complete Time: 11:56 sp3 05/04 10:20 Order name: CMP sp3 05/04 10:20 Order name: Lactate w/ 2H reflex if indic.; Complete Time: 11:56 sp3 05/04 10:20 Order name: Wound Culture sp3 05/04 11:45 Order name: Ghost Lactate-NO COLLECT Timer EDMS 05/04 13:18 Order name: Basic Metabolic Panel EDMS 05/04 13:18 Order name: Basic Metabolic Panel EDMS 05/04 13:18 Order name: CBC with Automated Diff EDMS 05/04 13:18 Order name: CBC with Automated Diff EDMS 05/04 13:18 Order name: Magnesium EDMS 05/04 13:18 Order name: Magnesium EDMS 05/04 13:18 Order name: Phosphorus EDMS 05/04 13:18 Order name: Phosphorus EDMS 05/04 10:20 Order name: Foot Left 3 View XRAY; Complete Time: 11:56 sp3 05/04 13:17 Order name: CONS Physician Consult EDMS 05/04 13:17 Order name: Physical Therapy Consult EDMS 05/04 10:20 Order name: IV Saline Lock - Large Bore; Complete Time: 10:55 sp3 05/04 10:20 Order name: Labs collected and sent; Complete Time: 10:55 sp3 05/04 10:20 Order name: Vital Signs; Complete Time: 10:55 sp3 Administered Medications: 10:55 Drug: Piperacillin-Tazobactam IVPB 3.375 grams IVPB once over 60 mins; (mix in NS 100 bp mL) Route: IVPB; Infused Over: 60 mins; Site: right forearm; 12:00 Drug: vancoMYCIN IVPB 1 grams IVPB once over 2 hrs Route: IVPB; Infused Over: 2 hrs; bp Site: right forearm; 12:15 Drug: NS 0.9% IV 1000 ml IV at 1 bolus Per protocol; to be given as a bolus over 60 bp minutes Route: IV; Rate: 1 bolus; Site: right forearm; Disposition Summary: 05/04/25 11:59 Hospitalization Ordered Notes: Hospitalization Status: Inpatient Admission sp3 Provider: Jt Jimenes Location: Telemetry/[facility] (Inpatient) sp3 Condition: Stable sp3 Problem: an acute exacerbation sp3 Symptoms: have worsened sp3 Bed/Room Type: Standard sp3 Room Assignment: 426(05/04/25 13:22) iw Diagnosis - Diabetic wound infection of the left foot, leukocytosis, lactic acidosis sp3 Forms: - Medication Reconciliation Form sp3 - SBAR form sp3 - Leadership Thank You Letter sp3 Signatures: Dispatcher [employer] Judy Thomas RN RN iw Temi Crespo RN RN hb Peltier, Brian, RN RN bp Patel, Setul, MD MD sp3 Corrections: (The following items were deleted from the chart) 10:21 PMHx: depressive disorder; hb hb 10: 10:21 PMHx: Right sided weakness; hb hb 10: 10:21 PMHx: coronary atherosclerosis; hb hb 10: 10:21 PMHx: CVA (Dementia); hb hb 10: 10:21 PMHx: HTN (Dementia); hb hb 10: 10:22 Home Meds: aripiprazole 5 mg Oral tablet nightly; hb hb 10: 10:22 PMHx: CVA; hb hb 10: 10:22 PMHx: Cerebrovascular accident; hb hb 10: 10:22 PMHx: Hypertensive disorder; hb hb 10: 10:22 PMHx: Seizure; hb hb 10: 10: PMHx: dysphasia (Speech disturbances); hb hb 13:22 11:59 sp3 iw
[2025-05-04 12:15] LABS: ALT/SGPT 9 U/L (16-61); AST/SGOT < 3 U/L (15-37); Alkaline Phosphatase 68 U/L (45-117); Anion Gap 10.8 mEq/L (5.0-15.0); BUN Blood Urea Nitrogen 14 mg/dL (7-18); Glucose Level 146 mg/dL (74-106); Potassium 3.8 mEq/L (3.5-5.1)
[2025-05-04 12:16] LABS: Albumin 3.1 g/dL (3.4-5.0); Albumin/Globulin Ratio 0.7 (1.1-1.8); Globulin 4.4 g/dL (2.3-3.5)
--- NOTE | 2025-05-04 12:23 | P.HP ---
Certification for Inpatient Patient admitted to: Inpatient With expected LOS: >2 Midnights Patient will require the following post-hospital care: None Practitioner: I am a practitioner with admitting privileges, knowledge of patient current condition, hospital course, and medical plan of care. Services: Services provided to patient in accordance with Admission requirements found in Title 42 Section 412.3 of the Code of Federal Regulations Patient History Date of Service: 05/04/25 Reason for admission: Diabetic wound to left great toe History of Present Illness: Donaldo English is a 69-year-old male with past medical history of CVA with residual right-sided weakness and dysphagia, dementia, hypothyroidism, seizure, speech disturbances, schizophrenia disorder, dysphagia, hypertension, CAD status post four-vessel CABG, diabetes mellitus right BKA who presents to the ED due to left great toe pain and swelling as well as right BKA wound bleeding, he was sent by his correction for evaluation. ROS is limited due to dementia. Laboratory evaluation significant for WBC 13.4, H&H 12/37, sodium 135, serum glucose 146, lactic acid 2.5. Left foot x-ray reports "No fracture or dislocation seen. No bony destructive lesion seen." Donaldo will be admitted to hospitalist service for further evaluation and treatment diabetic wound to left great toe. Dr. Flores consulted. Allergies No Known Allergies Allergy (Verified 10/15/24 02:56) Home Medications: Atorvastatin Calcium 40 mg PO BEDTIME 05/31/21 Clopidogrel Bisulfate [Plavix] 75 mg PO DAILY 05/31/21 Insulin Glargine,Hum.rec.anlog [Lantus] 20 unit SQ BID 05/31/21 Acetaminophen [Tylenol] 650 mg PO Q4HP PRN 05/20/24 Aripiprazole [Abilify] 5 mg PO BEDTIME 05/20/24 Aspirin 325 mg PO DAILY 05/20/24 Divalproex [Depakote Sprinkle*] 6 cap PO BID 05/20/24 Gabapentin [Neurontin*] 100 mg PO DAILY 05/20/24 Omeprazole 20 mg PO DAILY 05/20/24 Rivastigmine Tartrate [Rivastigmine] 1.5 mg PO BID 05/20/24 Sertraline HCl 50 mg PO DAILY 05/20/24 Sitagliptin Phosphate [Januvia] 100 mg PO DAILY 05/20/24 Levothyroxine Sodium 125 mcg PO 0600 06/10/24 Insuln Asp Prt/Insulin Aspart [Novolog Mix 70-30 Vial] See Protocol SQ BID 10/11/24 Lactobacillus Combination No.4 [Probiotic] 2 cap PO DAILY 10/11/24 Metoprolol Tartrate [Lopressor*] 25 mg PO BID 10/11/24 Simethicone [Gas Relief] 125 mg PO Q6HP PRN 10/11/24 Bisacodyl [Dulcolax*] 10 mg ID DAILY PRN #0 supp 10/21/24 Collagenase [Santyl Ointment*] 1 appl TOP DAILY #0 gm 11/20/24 Hydrocodone 5/APAP 325 [[place] 5/325*] 1 tab PO Q6H PRN #15 tab 12/17/24 levETIRAcetam [Keppra] 10 ml PO BID #600 ml 12/17/24 Ascorbate Calcium [Vitamin C] 1 tab PO DAILY 05/04/25 Furosemide [Lasix] 1 tab PO DAILY 05/04/25 Multivitamin 1 tab PO DAILY 05/04/25 - Past Medical/Surgical History Diabetic: Yes -: cva residual right-sided weakness -: Depressive disorder -: gallstones -: diabetic retinopathy -: depression -: thyroid disease -: siezures -: CAD -: Diabetes mellitusIDDM -: Schizophrenia -: Speech disturbances -: Dimension -: CABG -: thyoidectomy -: right 5th toe amputation -: BLE stents -: R BKA - Social History Smoking Status: Never smoker Alcohol use: No CD- Drugs: No Caffeine use: No Review of Systems Other: Per HPI and limited 2/2 dementia Physical Examination - Physical Exam General: In no apparent distress, Oriented x1, Demented HEENT: Atraumatic, Normocephalic Neck: Supple Respiratory: Clear to auscultation bilaterally Cardiovascular: Regular rate/rhythm, Normal S1 S2 Gastrointestinal: Normal bowel sounds Musculoskeletal: Other (right BKA, Left great toe ulcer) Integumentary: Skin breakdown (left great toe) Neurological: Normal speech, Normal tone - Studies Laboratory Data (last 24 hrs) 05/04/25 05/04/25 11:00 11:00 WBC 13.40 H Hgb 12.4 L Hct 37.4 L Plt Count 178 Sodium 135 L Potassium 3.8 BUN 14 Creatinine 0.90 Glucose 146 H Total Bilirubin 0.9 AST < 3 L ALT 9 L Alkaline Phosphatase 68 Assessment and Plan - Plan Assessment and plan Diabetic wound to left great toe Right BKA wound bleeding Lactic acidosis - Vanc and zosyn - Gentle IV fluids - Pain control - Monitor lactic acid until cleared - Monitor WBC and temperature - Follow wound culture and blood culture -Dr. Flores consulted, NPO at midnight Diabetes mellitus- IDDM -Accu-Chek sliding scale insulin CVA with residual right-sided weakness and dysphagia Dementia Hypothyroidism Seizure Speech disturbances Schizophrenia disorder Hypertension CAD status post four-vessel CABG -Continue home medications, hold plavix until surgery restarts -supportive care DVT ppx heparin DNR LOS 2-3 days Discharge Plan: Prison Plan to discharge in: 72 Hours - Advance Directives Does patient have a Living Will: No Does patient have a Durable POA for Healthcare: Yes Time Spent Managing Pts Care (In Minutes): 60
[2025-05-04] MEDS ORDERED: NA CHLORIDE 0.9% 1,000 ML ONE (12:30)
[2025-05-04 14:48] VITALS: BMI 28.0
[2025-05-04] MEDS: NA CHLORIDE 0.9% 1,000 ML IV SCH (15:20)
[2025-05-04] MEDS: INSULIN REGULAR (HUMAN) 100 UNIT/ML SQ SCH (16:30)
[2025-05-04] MEDS: PIPER TAZO 3.375 GM in NA CHLORIDE 0.9% 100 ML IV SCH (17:19)
[2025-05-04] MEDS: VANCOMYCIN 1.5 GM in NA CHLORIDE 0.9% 500 ML IVPB SCH (17:19)
[2025-05-04] MEDS: HEPARIN 5000 UNIT/ML 1 ML VIAL SQ SCH (17:21)
[2025-05-05] MEDS: LEVOTHYROXINE SOD 0.125 MG TAB PO SCH (05:33)
[2025-05-05] MEDS: ACETAMINOPHEN 325 MG TABLET PO PRN (05:49)
[2025-05-05 06:42] LABS: Absolute Lymphocytes (CBC) 0.5 K/uL (0.7-4.9); Hematocrit 30.3 % (39.6-49.0); Hemoglobin 10.2 g/dL (13.6-17.9); MCH 26.9 pg (27.0-35.0); MCHC 33.7 g/dL (32.0-36.0); MCV 79.8 fL (80-100); MPV 7.5 fL (7.6-11.3); Nucleated RBC Absolute Count 0.0 (0-0); Nucleated Red Blood Cells % 0.0 % (0-0); RBC Red Blood Cell Count 3.80 M/uL (4.33-5.43); White Blood Count 8.40 thou/uL (4.3-10.9)
[2025-05-05 06:57] LABS: Anion Gap 3.2 mEq/L (5.0-15.0); BUN Blood Urea Nitrogen 11.0 mg/dL (7-18); Glucose Level 72.0 mg/dL (74-106); Magnesium 1.9 mg/dL (1.6-2.4); Potassium 3.2 mEq/L (3.5-5.1)
[2025-05-05] MEDS: DIVALPROEX NA 125 MG CAP PO SCH (09:20)
[2025-05-05] MEDS: levETIRAcetam 500 MG/5 ML OSYR PO SCH (09:22)
[2025-05-05] MEDS: METOPROLOL TAR 25 MG TAB PO SCH (09:24)
[2025-05-05] MEDS: SERTRALINE HCL 50 MG TAB PO SCH (09:26)
[2025-05-05] MEDS: RIVASTIGMINE TARTRATE 1.5 MG PO SCH (09:26)
[2025-05-05] MEDS ORDERED: D50W 25 GM/50 ML SYRINGE IV PRN (12:01)
[2025-05-05] MEDS: D10W 125 ML IV PRN (12:13)
[2025-05-05] MEDS: NA CHLORIDE 0.9% 1,000 ML IV SCH (13:00)
[2025-05-05] MEDS ORDERED: MUPIROCIN 2% OINT 22GM TUBE TOP SCH (16:00)
[2025-05-05] MEDS: MUPIROCIN 2% OINT 22GM TUBE TOP SCH (18:35)
[2025-05-05] MEDS: ARIPiprazole 5 MG TAB PO SCH (20:34)
[2025-05-05] MEDS: ATORVASTATIN 40 MG TAB PO SCH (20:35)
[2025-05-05] MEDS: POTASSIUM CL SA 10 MEQ TAB PO ONE (20:36)
--- NOTE | 2025-05-05 20:41 | P.PN ---
Date of Service: 05/05/25 Subjective Surgery today Patient is confused ROS 10 point ROS as noted above, otherwise negative Physical Exam General: NAD, Oriented x1, dementia apparent HEENT: Atraumatic, Normocephalic Respiratory: Clear to auscultation bilaterally, on room air Cardiovascular: NSR, Normal S1 S2 Gastrointestinal: Normal bowel sounds Musculoskeletal: Other (right BKA, Left great toe ulcer) Integumentary: Skin breakdown (left great toe) Neurological: Normal speech, Normal tone, dementia. Vitals Reviewed Problem list Diabetic wound to left great toe Right BKA wound bleeding Lactic acidosis Assessment and Plan Diabetic wound to left great toe Right BKA wound bleeding Lactic acidosis - Continue vanc and zosyn - Continue gentle IV fluids - Continue pain control - Monitor lactic acid, cleared - Monitor WBC and temperature - Follow wound culture and blood culture -Dr. Flores consulted/following Hypokalemia -Monitor and replace Diabetes mellitus- IDDM -Accu-Chek sliding scale insulin CVA with residual right-sided weakness and dysphagia Dementia Hypothyroidism Seizure Speech disturbances Schizophrenia disorder Hypertension CAD status post four-vessel CABG -Continue home medications, hold plavix until surgery restarts -supportive care DVT ppx heparin DNR LOS 2-3 days Discharge Plan: Long-Term Plan to discharge in: 72 Hours Time Spent Managing Pts Care (In Minutes): 35
[2025-05-06] MEDS: CLOPIDOGREL 75 MG TABLET PO SCH (09:00)
[2025-05-06 11:54] LABS: Absolute Lymphocytes (CBC) 0.7 K/uL (0.7-4.9); Hematocrit 27.7 % (39.6-49.0); Hemoglobin 9.3 g/dL (13.6-17.9); MCH 26.7 pg (27.0-35.0); MCHC 33.6 g/dL (32.0-36.0); MCV 79.3 fL (80-100); MPV 7.3 fL (7.6-11.3); Nucleated RBC Absolute Count 0.0 (0-0); Nucleated Red Blood Cells % 0.0 % (0-0); RBC Red Blood Cell Count 3.50 M/uL (4.33-5.43); White Blood Count 7.40 thou/uL (4.3-10.9)
[2025-05-06 12:07] LABS: Anion Gap 7.3 mEq/L (5.0-15.0); BUN Blood Urea Nitrogen 9.0 mg/dL (7-18); Glucose Level 122.0 mg/dL (74-106); Magnesium 2.0 mg/dL (1.6-2.4); Potassium 3.3 mEq/L (3.5-5.1)
[2025-05-06] MEDS: POTASSIUM CL SA 10 MEQ TAB PO ONE (18:06)
--- NOTE | 2025-05-06 18:09 | P.PN ---
Date of Service: 05/06/25 Subjective Awake and good conversation today Left great toe appears to be improving, Dr. Flores will evaluate in the morning for surgical need ROS 10 point ROS as noted above, otherwise negative Physical Exam General: NAD, AAO x1, dementia apparent HEENT: Atraumatic Respiratory: Clear BBS, on room air Cardiovascular: NSR, Normal S1 S2 Gastrointestinal: Normal bowel sounds, nontender Musculoskeletal: Other (right BKA, Left great toe ulcer) Integumentary: Skin breakdown (left great toe) Neurological: Normal speech, dementia Vitals Reviewed Problem list Diabetic wound to left great toe Right BKA wound bleeding Lactic acidosis Assessment and Plan Diabetic wound to left great toe Right BKA wound bleeding Lactic acidosis - Continue vanc and zosyn - Continue gentle IV fluids - Continue pain control - Monitor lactic acid, cleared - Monitor WBC and temperature - Follow wound culture and blood culture -Dr. Flores consulted/following, will evaluate in the morning, appears to be improving Hypokalemia -Monitor and replace Diabetes mellitus- IDDM -Accu-Chek sliding scale insulin CVA with residual right-sided weakness and dysphagia Dementia Hypothyroidism Seizure Speech disturbances Schizophrenia disorder Hypertension CAD status post four-vessel CABG -Continue home medications, hold plavix until surgery restarts -supportive care DVT ppx heparin DNR LOS 2-3 days Discharge Plan: Shelter Plan to discharge in: 72 Hours Time Spent Managing Pts Care (In Minutes): 38
[2025-05-06 22:47] VITALS: O2SAT 97
[2025-05-07 10:15] LABS: Absolute Lymphocytes (CBC) 0.7 K/uL (0.7-4.9); Hematocrit 28.9 % (39.6-49.0); Hemoglobin 10.0 g/dL (13.6-17.9); MCH 27.4 pg (27.0-35.0); MCHC 34.7 g/dL (32.0-36.0); MCV 79.0 fL (80-100); MPV 7.3 fL (7.6-11.3); Nucleated RBC Absolute Count 0.0 (0-0); Nucleated Red Blood Cells % 0.1 % (0-0); RBC Red Blood Cell Count 3.66 M/uL (4.33-5.43); White Blood Count 6.00 thou/uL (4.3-10.9)
[2025-05-07 10:30] LABS: Anion Gap 6.2 mEq/L (5.0-15.0); BUN Blood Urea Nitrogen 10.0 mg/dL (7-18); Glucose Level 91.0 mg/dL (74-106); Potassium 3.2 mEq/L (3.5-5.1)
[2025-05-07] MEDS: POTASSIUM CL SA 10 MEQ TAB PO ONE (12:18)
[2025-05-07] MEDS: GABAPENTIN 100 MG CAP PO SCH (12:18)
--- NOTE | 2025-05-07 13:48 | P.CNS ---
Date of Consult: 05/07/25 reason for consult:MRSA wound to left foot HPI:69-year-old male with past medical history of CVA with residual right-sided weakness and dysphagia, dementia, hypothyroidism, seizure, schizophrenia disorder,CAD status post four-vessel CABG, diabetes mellitus right BKA who presents to the ED due to left great toe pain and swelling. he was sent by his senior living for evaluation. Left foot x-ray reports "No fracture or dislocation seen. No bony destructive lesion seen." wound culture show MRSA. No surgical intervention needed per Dr Flores. Pt is currently on zosyn and vancomycin. wbc 6. ALLERGIES No Known Allergies Allergy (Verified 10/15/24 02:56) Current Medications Acetaminophen (Acetaminophen 325 Mg Tablet) 650 mg PO Q4HP PRN PRN Reason: Temp > 101 F or mild pain Last Admin: 05/06/25 14:16 Dose: 650 mg Aripiprazole (Aripiprazole 5 Mg Tab) 5 mg PO BEDTIME CORINNA Last Admin: 05/06/25 21:01 Dose: 5 mg Atorvastatin Calcium (Atorvastatin 40 Mg Tab) 40 mg PO BEDTIME CORINNA Last Admin: 05/06/25 21:01 Dose: 40 mg Clopidogrel Bisulfate (Clopidogrel 75 Mg Tablet) 75 mg PO DAILY CORINNA Last Admin: 05/07/25 09:39 Dose: 75 mg Divalproex Sodium (Divalproex Na 125 Mg Cap) 750 mg PO BID CORINNA Last Admin: 05/07/25 09:39 Dose: 750 mg Gabapentin (Gabapentin 100 Mg Cap) 100 mg PO DAILY [facility] Last Admin: 05/07/25 12:18 Dose: 100 mg Heparin Sodium (Porcine) (Heparin 5000 Unit/Ml 1 Ml Vial) 5,000 unit SQ Q8HR CORINNA Last Admin: 05/07/25 09:41 Dose: 5,000 unit Vancomycin HCl 1.5 gm/ Sodium (Chloride) 500 mls @ 250 mls/hr IVPB Q18H CORINNA; Protocol Last Admin: 05/06/25 22:11 Dose: 500 mls Dextrose (Dextrose 10% Water Iv Soln.) 125 mls @ 0 mls/hr IV PRN PRN; Protocol PRN Reason: HYPOGLYCEMIA Last Admin: 05/05/25 12:13 Dose: 125 mls Insulin Human Regular (Insulin Regular (Human) 100 Unit/Ml) 0 unit SQ ACHS CORINNA; Protocol Last Admin: 05/07/25 11:30 Dose: Not Given Levetiracetam (Levetiracetam 500 Mg/5 Ml [place]) 1,000 mg PO BID [facility] Stop: 06/04/25 09:01 Last Admin: 05/07/25 09:39 Dose: 1,000 mg Levothyroxine Sodium (Levothyroxine Sod 0.125 Mg Tab) 0.125 mg PO 0600 [facility] Last Admin: 05/07/25 06:00 Dose: Not Given Metoprolol Tartrate (Metoprolol Tar 25 Mg Tab) 25 mg PO BID [facility] Last Admin: 05/07/25 09:40 Dose: 25 mg Mupirocin (Mupirocin 2% Oint 22gm Tube) 1 appl TOP BID [facility] Last Admin: 05/07/25 08:06 Dose: 1 appl Mupirocin (Mupirocin Nasal 2 Appl/1 Gm Tube) 1 appl LAURA BID [facility] Stop: 05/12/25 09:01 Rivastigmine Tartrate (Rivastigmine Tartrate 1.5 Mg) 1.5 mg PO BIDWM [facility] Last Admin: 05/07/25 09:40 Dose: 1.5 mg Sertraline HCl (Sertraline Hcl 50 Mg Tab) 50 mg PO DAILY [facility] Last Admin: 05/07/25 09:40 Dose: 50 mg - Past Medical/Surgical History Diabetic: Yes -: cva residual right-sided weakness -: Depressive disorder -: gallstones -: diabetic retinopathy -: depression -: thyroid disease -: siezures -: CAD -: Diabetes mellitusIDDM -: Schizophrenia -: Speech disturbances -: Dimension -: CABG -: thyoidectomy -: right 5th toe amputation -: BLE stents -: R BKA - Social History Smoking Status: Never smoker Alcohol use: No CD- Drugs: No Caffeine use: No ROS: please see HpI Physical Examination - Physical Exam General: In no apparent distress, Oriented x1, Dementia HEENT: Atraumatic, Normocephalic Neck: Supple Respiratory: Clear to auscultation bilaterally Cardiovascular: Regular rate/rhythm, Normal S1 S2 Gastrointestinal: Normal bowel sounds Musculoskeletal: right BKA, Left great toe infection Integumentary: left great toe swelling and erythema. no ulcer noted. mild bleeding around nail bed. right BKA no sign of infection or bleeding noted labs: wbc 6, hgb 10, plt count 182, bun 10, cr 0.61, albumin 3.1 assessment and planning Diabetic wound to left great toe moderate protein calorie malnourishment surgical intervention not needed per surgeon. continue local wound care with mupirocin per Dr Flores wound culture grew MRSA and Stah Aureus. Recommend to continue vancomycin x 2 weeks. dc zosyn, can be discharge with PO doxycyline blood culture neg so far thank you for the consult case discussed and in agreement with Dr Thorpe
--- NOTE | 2025-05-07 13:52 | P.CNS ---
Date of Consult: 05/07/25 Chief Complaint: Diabetic wound to left great toe Allergies No Known Allergies Allergy (Verified 10/15/24 02:56) Home Medications: Atorvastatin Calcium 40 mg PO BEDTIME 05/31/21 Clopidogrel Bisulfate [Plavix] 75 mg PO DAILY 05/31/21 Insulin Glargine,Hum.rec.anlog [Lantus] 20 unit SQ BID 05/31/21 Acetaminophen [Tylenol] 650 mg PO Q4HP PRN 05/20/24 Aripiprazole [Abilify] 5 mg PO BEDTIME 05/20/24 Aspirin 325 mg PO DAILY 05/20/24 Divalproex [Depakote Sprinkle*] 6 cap PO BID 05/20/24 Gabapentin [Neurontin*] 100 mg PO DAILY 05/20/24 Omeprazole 20 mg PO DAILY 05/20/24 Rivastigmine Tartrate [Rivastigmine] 1.5 mg PO BID 05/20/24 Sertraline HCl 50 mg PO DAILY 05/20/24 Sitagliptin Phosphate [Januvia] 100 mg PO DAILY 05/20/24 Levothyroxine Sodium 125 mcg PO 0600 06/10/24 Insuln Asp Prt/Insulin Aspart [Novolog Mix 70-30 Vial] See Protocol SQ BID 10/11/24 Lactobacillus Combination No.4 [Probiotic] 2 cap PO DAILY 10/11/24 Metoprolol Tartrate [Lopressor*] 25 mg PO BID 10/11/24 Simethicone [Gas Relief] 125 mg PO Q6HP PRN 10/11/24 Bisacodyl [Dulcolax*] 10 mg AR DAILY PRN #0 supp 10/21/24 Collagenase [Santyl Ointment*] 1 appl TOP DAILY #0 gm 11/20/24 Hydrocodone 5/APAP 325 [[place] 5/325*] 1 tab PO Q6H PRN #15 tab 12/17/24 levETIRAcetam [Keppra] 10 ml PO BID #600 ml 12/17/24 Ascorbate Calcium [Vitamin C] 1 tab PO DAILY 05/04/25 Furosemide [Lasix] 1 tab PO DAILY 05/04/25 Multivitamin 1 tab PO DAILY 05/04/25 - Past Medical/Surgical History Diabetic: Yes -: cva residual right-sided weakness -: Depressive disorder -: gallstones -: diabetic retinopathy -: depression -: thyroid disease -: siezures -: CAD -: Diabetes mellitusIDDM -: Schizophrenia -: Speech disturbances -: Dimension -: CABG -: thyoidectomy -: right 5th toe amputation -: BLE stents -: R BKA - Social History Smoking Status: Unknown if ever smoked Alcohol use: No CD- Drugs: No Caffeine use: No Review of Systems 10-point ROS is otherwise unremarkable Physical Examination Temp Pulse Resp BP Pulse Ox 97.9 F 69 18 172/81 H 98 05/07/25 12:00 05/07/25 12:00 05/07/25 12:00 05/07/25 12:00 05/07/25 12:00 General: Alert, Oriented x2 Cardiovascular: No edema, Abnormal pulses (0/4 dp and pt pulse left lower extremity) Capillary refill: >2 Seconds Musculoskeletal: No clubbing, No swelling, No contractures, No erythema, No tenderness, No warmth Integumentary: Other (Erythema and ecchymosis left hallux proximal aspect of left hallux nail extending to hallux ipj. No purulence note, no probing to bone) Neurological: Abnormal sensation - Problems (1) Cellulitis of toe of left foot Current Visit: Yes Status: Acute (2) Diabetic foot ulcer Current Visit: No Status: Acute (3) Type 2 diabetes mellitus with diabetic peripheral angiopathy without gangrene Current Visit: No Status: Acute Conclusions/Impression: Continue iv antibiotics per infectious disease Medihoney to wound daily, if unable to obtain continue Medihoney Will follow
--- NOTE | 2025-05-07 15:00 | P.DS ---
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 ROS is limited due to dementia. Laboratory evaluation significant for WBC 13.4, H&H 12/37, sodium 135, serum glucose 146, lactic acid 2.5. Left foot x-ray reports "No fracture or dislocation seen. No bony destructive lesion seen." Donaldo will be admitted to hospitalist service for further evaluation and treatment diabetic wound to left great toe. Dr. Flores consulted. Hospital Course: General: NAD, AAO x1, dementia apparent HEENT: Atraumatic Respiratory: Clear BBS, on room air Cardiovascular: NSR, Normal S1 S2 Gastrointestinal: Normal bowel sounds, nontender Musculoskeletal: Other (right BKA, Left great toe ulcer) Integumentary: Skin breakdown (left great toe) Neurological: Normal speech, dementia Vital Signs/Physical Exam: Temp Pulse Resp BP Pulse Ox 97.9 F 69 18 172/81 H 98 05/07/25 12:00 05/07/25 12:00 05/07/25 12:00 05/07/25 12:00 05/07/25 12:00 Laboratory Data at Discharge: WBC 6.00 thou/uL (4.3-10.9) 05/07/25 07:50 Hgb 10.0 g/dL (13.6-17.9) L 05/07/25 07:50 Hct 28.9 % (39.6-49.0) L 05/07/25 07:50 Plt Count 182 thou/uL (152-406) 05/07/25 07:50 Sodium 141 mEq/L (136-145) 05/07/25 07:50 Potassium 3.2 mEq/L (3.5-5.1) L 05/07/25 07:50 BUN 10 mg/dL (7-18) 05/07/25 07:50 Creatinine 0.61 mg/dL (0.70-1.30) L 05/07/25 07:50 Glucose 91 mg/dL (74-106) 05/07/25 07:50 Phosphorus 2.2 mg/dL (2.5-4.9) L 05/06/25 11:35 Magnesium 2.0 mg/dL (1.6-2.4) 05/06/25 11:35 Total Bilirubin 0.9 mg/dL (0.2-1.0) 05/04/25 11:00 AST < 3 U/L (15-37) L 05/04/25 11:00 ALT 9 U/L (16-61) L 05/04/25 11:00 Alkaline Phosphatase 68 U/L (45-117) 05/04/25 11:00 Home Medications: Atorvastatin Calcium 40 mg PO BEDTIME 05/31/21 Clopidogrel Bisulfate [Plavix] 75 mg PO DAILY 05/31/21 Insulin Glargine,Hum.rec.anlog [Lantus] 20 unit SQ BID 05/31/21 Acetaminophen [Tylenol] 650 mg PO Q4HP PRN 05/20/24 Aripiprazole [Abilify] 5 mg PO BEDTIME 05/20/24 Aspirin 325 mg PO DAILY 05/20/24 Divalproex [Depakote Sprinkle*] 6 cap PO BID 05/20/24 Gabapentin [Neurontin*] 100 mg PO DAILY 05/20/24 Omeprazole 20 mg PO DAILY 05/20/24 Rivastigmine Tartrate [Rivastigmine] 1.5 mg PO BID 05/20/24 Sertraline HCl 50 mg PO DAILY 05/20/24 Sitagliptin Phosphate [Januvia] 100 mg PO DAILY 05/20/24 Levothyroxine Sodium 125 mcg PO 0600 06/10/24 Insuln Asp Prt/Insulin Aspart [Novolog Mix 70-30 Vial] See Protocol SQ BID 10/11/24 Lactobacillus Combination No.4 [Probiotic] 2 cap PO DAILY 10/11/24 Metoprolol Tartrate [Lopressor*] 25 mg PO BID 10/11/24 Simethicone [Gas Relief] 125 mg PO Q6HP PRN 10/11/24 Bisacodyl [Dulcolax*] 10 mg [place] DAILY PRN #0 supp 10/21/24 Collagenase [Santyl Ointment*] 1 appl TOP DAILY #0 gm 11/20/24 Hydrocodone 5/APAP 325 [[place] 5/325*] 1 tab PO Q6H PRN #15 tab 12/17/24 levETIRAcetam [Keppra] 10 ml PO BID #600 ml 12/17/24 Ascorbate Calcium [Vitamin C] 1 tab PO DAILY 05/04/25 Furosemide [Lasix] 1 tab PO DAILY 05/04/25 Multivitamin 1 tab PO DAILY 05/04/25 Collagenase [Santyl Ointment*] 1 appl TOP DAILY 10 Days #1 bottle 05/07/25 Doxycycline Hyclate 100 mg PO BID 10 Days #20 tab 05/07/25 New Medications: Doxycycline Hyclate 100 mg PO BID 10 Days #20 tab Collagenase [Santyl Ointment*] 1 appl TOP DAILY 10 Days #1 bottle Physician Discharge Instructions: 1. Please call and schedule a follow-up appointment with your PCP in 3-5 days - Please follow-up with your PCP for medication refills/adjustments 2. Please call and schedule a follow-up appointment with Dr. Paige in 1 week - Follow closely with Dr. Paige 3. Continue diabetic diet 4. activity restrictions fall precaution 5. Return to the ED if symptoms worsen New medications Doxycycline 100 mg twice daily x 10 days Santyl apply to wound daily adaptec and hydrofera blue Cleanse wound, Apply Santyl then cover with dry dressing daily Diet: ADA Activity: Fall precautions Followup: Edilson Holman MD [Primary Care Provider] -
[2025-05-07] MEDS: HYDRALAZINE HCL 20 MG/ML VIAL IV PRN (16:01)
[2025-05-07] MEDS: NA CHLORIDE 0.9% 500 ML ONE (17:03)
--- NOTE | 2025-05-07 19:44 | P.PN ---
Date of Service: 05/07/25 Subjective Some agitation this morning Dr. Flores does not need to provide incision and drainage as this toe is swelling Dr. Paige consulted as well ROS 10 point ROS as noted above, otherwise negative Physical Exam General: Confused, agitated, dementia apparent HEENT: Atraumatic Respiratory: Nonlabored breathing, on room air Cardiovascular: Regular rate and rhythm, Normal S1 S2 Gastrointestinal: Normal bowel sounds, nontender Musculoskeletal: Other (right BKA, Left great toe ulcer) Integumentary: Skin breakdown (left great toe) Neurological: Normal speech, dementia Vitals Reviewed Problem list Diabetic wound to left great toe Right BKA wound bleeding Lactic acidosis Assessment and Plan Diabetic wound to left great toe Right BKA wound bleeding Lactic acidosis - Continue vanc, will use doxycycline outpatient - Continue gentle IV fluids - Continue pain control - Monitor lactic acid, cleared - Monitor WBC and temperature - wound culture Staph aureus, MRSA - Blood culture growing gram-positive in 1 vial, repeat blood culture today -Dr. Flores consulted/following, will evaluate in the morning, appears to be improving - Dr. 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 I have reviewed the history, physical exam findings, and assessment provided by Delia Alvarez LOGISTICS PLANNING MANAGER. I agree with the plan of care as documented <James Sweeney - Last Filed: 05/08/25 06:36>
[2025-05-07] MEDS: Mupirocin NASAL 2 APPL/1 GM TUBE NAS SCH (21:00)
[2025-05-08] MEDS: COLLAGENASE 30 GM OINTMENT TOP SCH (09:00)
[2025-05-08] MEDS ORDERED: GABAPENTIN 100 MG CAP PO SCH (09:00)
[2025-05-08] MEDS ORDERED: MEDIHONEY 44 ML TOPICAL TUBE TOP SCH (09:00)
--- NOTE | 2025-05-08 13:06 | P.PN ---
Date of Service: 05/08/25 Subjective: Resting comfortably. He is refusing IV medication or blood draws per nursing staff. Nurse at bedside removing dressing over his foot. He endorses pain with dressing changes. Vital stable overnight. Remains agitated intermittently. Improved with redirection Physical Exam General: Confused, agitated, dementia apparent HEENT: Atraumatic Respiratory: Nonlabored breathing, on room air Cardiovascular: Regular rate and rhythm, Normal S1 S2 Gastrointestinal: Normal bowel sounds, nontender Musculoskeletal: Other (right BKA, Left great toe ulcer) Integumentary: Skin breakdown (left great toe) Neurological: Normal speech, dementia Vitals Reviewed Problem list Diabetic wound to left great toe Right BKA wound bleeding Lactic acidosis Assessment and Plan Diabetic wound to left great toe Right BKA wound bleeding Lactic acidosis - Patient is refusing IV medication, start p.o. doxycycline twice daily - Continue gentle IV fluids - Continue pain control - Lactic acidosis resolved - wound culture Staph aureus, MRSA - Repeat blood culture pending - Dr. Flores consulted/following, will evaluate in the morning, appears to be improving - Dr. 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 Time includes direct [id number] interaction with the patient and indirect time spent reviewing records, ordering tests, and discussing the care plan.
--- NOTE | 2025-05-08 20:02 | RAD REPORT ---
EXAM: Upper Ext Artery Bilateral HISTORY: bilateral hand swelling COMPARISON: None TECHNIQUE: Multiplanar grayscale and color Doppler images were obtained for an upper extremity arteri al ultrasound. Spectral analysis of the Doppler waveforms were performed. The common carotid artery, subclavian artery, axillary artery, brachial artery, radial artery, and ulnar arteries were e valuated. FINDINGS: The common carotid artery, subclavian artery, axillary artery, brachial artery, radial artery, and ul nelida arteries were evaluated. Flow was documented on color Doppler. The waveforms were multiphasic and within normal limits. Velocities are within normal limits. IMPRESSION: No significant arterial abnormality of the left upper extremity.
[2025-05-08] MEDS: MUPIROCIN 2% OINT 22GM TUBE TOP SCH (20:30)
[2025-05-08] MEDS: DOXYCYCLINE 100 MG CAP PO SCH (20:30)
--- NOTE | 2025-05-08 20:38 | RAD REPORT ---
EXAMINATION: UPPER EXTREMITY VENOUS BILAT CLINICAL INDICATION: Male, 69 years old.bilateral hand swelling TECHNIQUE: Multiplanar grayscale and color Doppler images were obtained in a upper extremity venous ultrasound. Spectral analysis of the Doppler waveforms were performed. COMPARISON: No prior exams FINDINGS: The bilateral cephalic veins are noncompressible and presumably thrombosed. The remaining veins within both upper extremities including the internal jugular vein, visualized sub clavian vein, axillary vein, brachial veins, basilic veins, radial vein, and ulnar veins are patent. IMPRESSION: Noncompressible cephalic veins consistent with thrombosis. The remaining veins were patent.
[2025-05-09 07:16] LABS: Absolute Lymphocytes (CBC) 1.0 K/uL (0.7-4.9); Hematocrit 33.2 % (39.6-49.0); Hemoglobin 11.3 g/dL (13.6-17.9); MCH 26.9 pg (27.0-35.0); MCHC 34.0 g/dL (32.0-36.0); MCV 79.3 fL (80-100); MPV 6.9 fL (7.6-11.3); Nucleated RBC Absolute Count 0.0 (0-0); Nucleated Red Blood Cells % 0.0 % (0-0); RBC Red Blood Cell Count 4.18 M/uL (4.33-5.43); White Blood Count 6.70 thou/uL (4.3-10.9)
[2025-05-09 07:28] LABS: Albumin 2.3 g/dL (3.4-5.0); Albumin/Globulin Ratio 0.6 (1.1-1.8); Alkaline Phosphatase 49 U/L (45-117); Anion Gap 7.2 mEq/L (5.0-15.0); BUN Blood Urea Nitrogen 12 mg/dL (7-18); Globulin 3.6 g/dL (2.3-3.5); Glucose Level 127 mg/dL (74-106)
[2025-05-09 07:31] LABS: ALT/SGPT < 14 U/L (16-61); AST/SGOT 19 U/L (15-37); Potassium 4.2 mEq/L (3.5-5.1)
[2025-05-09] MEDS: DIVALPROEX NA 125 MG CAP PO SCH (09:23)
--- NOTE | 2025-05-09 12:13 | P.PN ---
Date of Service: 05/09/25 Subjective: Resting comfortably. No acute events overnight Physical Exam General: Confused, agitated, dementia apparent HEENT: Atraumatic Respiratory: Nonlabored breathing, on room air Cardiovascular: Regular rate and rhythm, Normal S1 S2 Gastrointestinal: Normal bowel sounds, nontender Musculoskeletal: Other (right BKA, Left great toe ulcer) Integumentary: Skin breakdown (left great toe) Neurological: Normal speech, dementia Vitals Reviewed Problem list Diabetic wound to left great toe Right BKA wound bleeding Lactic acidosis Plan Diabetic wound to left great toe Right BKA wound bleeding Lactic acidosis - Patient is refusing IV medication, start p.o. doxycycline twice daily - Continue gentle IV fluids - Continue pain control - Lactic acidosis resolved - wound culture Staph aureus, MRSA - Repeat blood culture pending with no growth over 4 hours - Dr. Flores consulted/following, will evaluate in the morning, appears to be improving - Dr. 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 I have reviewed the history, physical exam findings, and assessment provided by Anuj Erickson MANAGER RESIDENTIAL. I agree with the plan of care as documented <James Sweeney - Last Filed: 05/09/25 15:39>
--- NOTE | 2025-05-10 12:49 | P.PN ---
Date of Service: 05/10/25 subjective: pt is tolerating abx with no issue. deneid NVD, No fever/chill. WBC WNL objective Temp Pulse Resp BP Pulse Ox 97.6 F 57 16 133/65 100 05/10/25 12:00 05/10/25 12:00 05/10/25 12:00 05/10/25 12:00 05/10/25 12:00 - Physical Exam General: In no apparent distress, Oriented x1, Dementia HEENT: Atraumatic, Normocephalic Neck: Supple Respiratory: Clear to auscultation bilaterally Cardiovascular: Regular rate/rhythm, Normal S1 S2 Gastrointestinal: Normal bowel sounds Musculoskeletal: right BKA, Left great toe infection Integumentary: left great toe swelling and erythema with dressing. right BKA no sign of infection or bleeding noted labs: wbc 6.7, hgb 11.3, plt count 190, bun 12, cr 0.81, albumin 2.3 assessment and planning Diabetic wound to left great toe moderate protein calorie malnourishment dementia CVA schizophrenia disorder No surgical intervention needed per surgeon. continue local wound care per Dr Paige wound culture grew MRSA and Stah Aureus. Recommend abx duration x 2 weeks from when vancomycin was initiated. vancomycin switch to doxycyline PO, tentative stop date may 18 blood culture no growth 05/07 case discussed and in agreement with Dr Thorpe
--- NOTE | 2025-05-10 15:13 | P.DS ---
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 ROS is limited due to dementia. Laboratory evaluation significant for WBC 13.4, H&H 12/37, sodium 135, serum g lucose 146, lactic acid 2.5. Left foot x-ray reports "No fracture or dislocation seen. No bony destructive lesion seen." Donaldo will be admitted to hospitalist service for further evaluation and [facility] diabetic wound to left great toe. Dr. Flores consulted. Hospital Course: Problem list Diabetic wound to left great toe Right BKA wound bleeding Lactic acidosis Patient was admitted to the hospital for left great toe wound, he was seen by podiatry and general surgery who did not recommend any surgical intervention or debridement. He was treated with antibiotics initially IV and transition to oral doxycycline. 1 out of 4 of his blood cultures initially grew gram-positive Co. site in clusters which is likely contaminant, repeat blood cultures were obtained and there is no growth in 24 hours. Continue with wound care as recommended by podiatry, continue doxycycline for total of 10 more days. <Anuj Erickson - Last Filed: 05/10/25 15:11> Admission Date: 05/04/25 Discharge Date: 05/10/25 <James Sweeney - Last Filed: 05/10/25 16:04> Disposition: TRANSFER TO CORRECTION Discharge Condition: GOOD Vital Signs/Physical Exam: Temp Pulse Resp BP Pulse Ox 97.6 F 57 16 133/65 100 05/10/25 12:00 05/10/25 12:00 05/10/25 12:00 05/10/25 12:00 05/10/25 12:00 General: Alert, In no apparent distress, Oriented x2 HEENT: Atraumatic, PERRLA Neck: Supple, JVD not distended Respiratory: Clear to auscultation bilaterally, Normal air movement Cardiovascular: Regular rate/rhythm, Normal S1 S2 Gastrointestinal: Normal bowel sounds, No tenderness Musculoskeletal: No tenderness Integumentary: Other (Left great toe wound with dressing clean dry and intact) Neurological: Normal speech, Normal affect Laboratory Data at Discharge: WBC 6.70 thou/uL (4.3-10.9) 05/09/25 06:50 Hgb 11.3 g/dL (13.6-17.9) L 05/09/25 06:50 Hct 33.2 % (39.6-49.0) L 05/09/25 06:50 Plt Count 190 thou/uL (152-406) 05/09/25 06:50 Sodium 137 mEq/L (136-145) 05/09/25 06:50 Potassium 4.2 mEq/L (3.5-5.1) 05/09/25 06:50 BUN 12 mg/dL (7-18) 05/09/25 06:50 Creatinine 0.81 mg/dL (0.70-1.30) 05/09/25 06:50 Glucose 127 mg/dL (74-106) H 05/09/25 06:50 Phosphorus 2.2 mg/dL (2.5-4.9) L 05/06/25 11:35 Magnesium 2.0 mg/dL (1.6-2.4) 05/06/25 11:35 Total Bilirubin 0.4 mg/dL (0.2-1.0) 05/09/25 06:50 AST 19 U/L (15-37) 05/09/25 06:50 ALT < 14 U/L (16-61) L 05/09/25 06:50 Alkaline Phosphatase 49 U/L (45-117) 05/09/25 06:50 <Anuj Erickson - Last Filed: 05/10/25 15:11> Vital Signs/Physical Exam: Temp Pulse Resp BP Pulse Ox 97.6 F 57 16 133/65 100 05/10/25 12:00 05/10/25 12:00 05/10/25 12:00 05/10/25 12:00 05/10/25 12:00 Laboratory Data at Discharge: WBC 6.70 thou/uL (4.3-10.9) 05/09/25 06:50 Hgb 11.3 g/dL (13.6-17.9) L 05/09/25 06:50 Hct 33.2 % (39.6-49.0) L 05/09/25 06:50 Plt Count 190 thou/uL (152-406) 05/09/25 06:50 Sodium 137 mEq/L (136-145) 05/09/25 06:50 Potassium 4.2 mEq/L (3.5-5.1) 05/09/25 06:50 BUN 12 mg/dL (7-18) 05/09/25 06:50 Creatinine 0.81 mg/dL (0.70-1.30) 05/09/25 06:50 Glucose 127 mg/dL (74-106) H 05/09/25 06:50 Phosphorus 2.2 mg/dL (2.5-4.9) L 05/06/25 11:35 Magnesium 2.0 mg/dL (1.6-2.4) 05/06/25 11:35 Total Bilirubin 0.4 mg/dL (0.2-1.0) 05/09/25 06:50 AST 19 U/L (15-37) 05/09/25 06:50 ALT < 14 U/L (16-61) L 05/09/25 06:50 Alkaline Phosphatase 49 U/L (45-117) 05/09/25 06:50 <James Sweeney - Last Filed: 05/10/25 16:04> Diet: ADA Activity: Fall precautions Time spent managing pt's care (in minutes): 36 <Anuj Erickson - Last Filed: 05/10/25 15:11> Physician Review: Patient Assessed, Agree with Above Assessment and Plan <James Sweeney - Last Filed: 05/10/25 16:04> Home Medications: Atorvastatin Calcium 40 mg PO BEDTIME 05/31/21 Clopidogrel Bisulfate [Plavix] 75 mg PO DAILY 05/31/21 Insulin Glargine,Hum.rec.anlog [Lantus] 20 unit SQ BID 05/31/21 Acetaminophen [Tylenol] 650 mg PO Q4HP PRN 05/20/24 Aripiprazole [Abilify] 5 mg PO BEDTIME 05/20/24 Aspirin 325 mg PO DAILY 05/20/24 Divalproex [Depakote Sprinkle*] 6 cap PO BID 05/20/24 Gabapentin [Neurontin*] 100 mg PO DAILY 05/20/24 Omeprazole 20 mg PO DAILY 05/20/24 Rivastigmine Tartrate [Rivastigmine] 1.5 mg PO BID 05/20/24 Sertraline HCl 50 mg PO DAILY 05/20/24 Sitagliptin Phosphate [Januvia] 100 mg PO DAILY 05/20/24 Levothyroxine Sodium 125 mcg PO 0600 06/10/24 Insuln Asp Prt/Insulin Aspart [Novolog Mix 70-30 Vial] See Protocol SQ BID 10/11/24 Lactobacillus Combination No.4 [Probiotic] 2 cap PO DAILY 10/11/24 Metoprolol Tartrate [Lopressor*] 25 mg PO BID 10/11/24 Simethicone [Gas Relief] 125 mg PO Q6HP PRN 10/11/24 Bisacodyl [Dulcolax*] 10 mg NH DAILY PRN #0 supp 10/21/24 Collagenase [Santyl Ointment*] 1 appl TOP DAILY #0 gm 11/20/24 Hydrocodone 5/APAP 325 [[place] 5/325*] 1 tab PO Q6H PRN #15 tab 12/17/24 levETIRAcetam [Keppra] 10 ml PO BID #600 ml 12/17/24 Ascorbate Calcium [Vitamin C] 1 tab PO DAILY 05/04/25 Furosemide [Lasix] 1 tab PO DAILY 05/04/25 Multivitamin 1 tab PO DAILY 05/04/25 Collagenase [Santyl Ointment*] 1 appl TOP DAILY 10 Days #1 bottle 05/07/25 Doxycycline Hyclate 100 mg PO BID 10 Days #20 tab 05/07/25 New Medications: Doxycycline Hyclate 100 mg PO BID 10 Days #20 tab Collagenase [Santyl Ointment*] 1 appl TOP DAILY 10 Days #1 bottle Physician Discharge Instructions: 1. Please call and schedule a follow-up appointment with your PCP in 3-5 days - Please follow-up with your PCP for medication refills/adjustments 2. Please call and schedule a follow-up appointment with Dr. Paige in 1 week - Follow closely with Dr. Paige 3. Continue diabetic diet 4. activity restrictions fall precaution 5. Return to the ED if symptoms worsen New medications Doxycycline 100 mg twice daily x 10 days Santyl apply to wound daily adaptec and hydrofera blue Cleanse wound, Apply Santyl then cover with dry dressing daily Followup: Giacomo Paige JR, DPM [ASSOCIATE-ACTIVE - CAN ADMIT] - 1 Week Edilson Holman MD [Primary Care Provider] - (3-5 days)
[2025-05-10 17:35] VITALS: BP 151/92; TEMP 97
== END 2025-05-10 19:10 | DRG 872 ==
LOC: ER 10:11 → 4TH 13:09
PROVIDERS: ADMIT Internal Medicine; ATTEND Family Medicine
DX: A41.02 Sepsis due to Methicillin resistant Staphylococcus aureus (principal); I69.354 Hemiplegia and hemiparesis following cerebral infarction affecting left non-dominant side; E44.0 Moderate protein-calorie malnutrition; Z66 Do not resuscitate; E11.621 Type 2 diabetes mellitus with foot ulcer; R65.20 Severe sepsis without septic shock; E11.51 Type 2 diabetes mellitus with diabetic peripheral angiopathy without gangrene; Z79.4 Long term (current) use of insulin; F03.90 Unspecified dementia, unspecified severity, without behavioral disturbance, psychotic disturbance, mood disturbance, and anxiety; Z89.511 Acquired absence of right leg below knee; Z79.82 Long term (current) use of aspirin; Z79.02 Long term (current) use of antithrombotics/antiplatelets; Z79.891 Long term (current) use of opiate analgesic; Z79.84 Long term (current) use of oral hypoglycemic drugs; Z79.890 Hormone replacement therapy; G40.909 Epilepsy, unspecified, not intractable, without status epilepticus; F25.9 Schizoaffective disorder, unspecified; F80.9 Developmental disorder of speech and language, unspecified; E11.319 Type 2 diabetes mellitus with unspecified diabetic retinopathy without macular edema; Z95.1 Presence of aortocoronary bypass graft; Z89.421 Acquired absence of other right toe(s); Z95.5 Presence of coronary angioplasty implant and graft; E89.0 Postprocedural hypothyroidism; I25.10 Atherosclerotic heart disease of native coronary artery without angina pectoris; I69.391 Dysphagia following cerebral infarction; R56.9 Unspecified convulsions; Z68.28 Body mass index [BMI] 28.0-28.9, adult
CPT/HCPCS: 36415; 80048; 80053; 80164; 80202; 82947; 83605; 83735; 84100; 84132; 85025; 87040; 87070; 87077; 87186; 87205; 93930; 93970; 96374; 96375; 97110; 97161; 97530; 99285; J0360; J1644; J1815; J2543; J3370; J3590; J7030; J7040; J7050

== ENCOUNTER 2025-07-11 11:27 | Emergency (ER) | payer OTHER, MEDICAID ==
--- NOTE | 2025-07-11 12:26 | RAD REPORT ---
EXAMINATION: Head Brain Wo Cont CLINICAL INDICATION: Male, 70 years old.fall TECHNIQUE: Axial CT images from the skull base to the vertex without intravenous contrast. Coronal an d sagittal reformatted images were created from the data set. One or more of the following dose reduction techniques were used: Automated exposure control, adjustment of the mA and/or kV according to patient size, and/or iterative reconstruction. Unless otherwise specified, incidental findings do not require dedicated imaging follow-up. [id number]. COMPARISON: 05/24/2025 FINDINGS: INTRACRANIAL: No acute intracranial hemorrhage. Moderate size remote left cerebral hemisphere infarc t. Small right frontal lobe cortical infarct. Remote left basal ganglia and deep white matter lacunar infarcts. No hydrocephalus. No mass effect or midline shift. Moderate chronic small vessel ischemic changes. Moderate cerebral atrophy. VASCULATURE: No visualized abnormalities in the arteries or dural venous sinuses. SCALP/SKULL: No calvarial fracture identified. No acute soft tissue abnormality. SINUSES: The visualized paranasal sinuses are mostly clear. No significant mastoid fluid. IMPRESSION: No acute intracranial abnormality. Chronic small vessel ischemic changes and remote infarcts.
--- NOTE | 2025-07-11 12:53 | RAD REPORT ---
EXAMINATION: Femur Right VIEWS: Four views CLINICAL INDICATION: Male, 70 years old. fall;Pain RIGHT COMPARISON: No prior exams IMPRESSION: Status post [id number] amputation. No fractures identified. No radiographic evidence of osteomyel itis. Vascular stent presumably within the distal SFA and popliteal artery.
--- NOTE | 2025-07-11 13:07 | ER ---
Nurse's Notes [facility] Name: Donaldo English Age: 70 yrs Sex: Male : 1955 Arrival Date: 07/11/2025 Time: 11:27 Bed 17 Private MD: Diagnosis: Contusion of right hip;Fall from non-moving wheelchair Presentation: 07/11 11:38 Chief complaint: EMS states: From [facility] for unwitnessed fall from wheelchair, found ph lying on right side, +blood thinners, pt had no complaints until arriving at ED, now reports R hip pain, noted to be lying on R hip. Coronavirus screen: At this time, the client does not indicate any symptoms associated with coronavirus-19. Ebola Screen: No symptoms or risks identified at this time. Initial Sepsis Screen: Does the patient meet any 2 criteria? No. Patient's initial sepsis screen is negative. Does the patient have a suspected source of infection? No. Patient's initial sepsis screen is negative. Risk Assessment: Do you want to hurt yourself or someone else? Patient reports no desire to harm self or others. 11:38 Method Of Arrival: EMS: [facility] ph 11:41 Onset of symptoms was July 11, 2025. ph 11:41 Acuity: LILIANA 4 ph 11:47 Care prior to arrival: None. Mechanism of Injury: Fall out of chair. Trauma event ph details: Injury occurred in the [facility], Injury occurred: [facility]. Triage Assessment: 11:43 General: Appears in no apparent distress. comfortable, Behavior is calm, cooperative. ph Pain: Complains of pain in R hip. Neuro: Level of Consciousness is awake, alert, obeys commands, Oriented to person, place. Cardiovascular: Capillary refill < 3 seconds in bilateral fingers Patient's skin is warm and dry. Respiratory: Airway is patent Respiratory effort is even, unlabored, Respiratory pattern is regular, symmetrical. GI: No signs and/or symptoms were reported involving the gastrointestinal system. Derm: Skin is pink, warm \T\ dry. Trauma Activation: Not Applicable Physician: ED Physician; Name: ; Notified At: ; Arrived At: Physician: General Surgeon; Name: ; Notified At: ; Arrived At: Physician: Radiology; Name: ; Notified At: ; Arrived At: Physician: Respiratory; Name: ; Notified At: ; Arrived At: Physician: Lab; Name: ; Notified At: ; Arrived At: Historical: - Allergies: 11:41 No Known Allergies; ph - PMHx: 11:41 CAD; CVA; Right sided weakness; Dementia; Depression; diabetes mellitus; DYSPHAGIA; ph HTN; Hypothyroidism; schizoaffective disorder; Seizure; Speech disturbances; - PSHx: 11:41 Quadruple bipass; RIGHT BKA; right foot; ph - Immunization history:: Adult Immunizations unknown. - Infectious Disease History:: Denies. - Immunization history: Last tetanus immunization: unknown. - Family history:: not pertinent. - Social history:: Smoking status: unknown. - Hospitalizations: : No recent hospitalization is reported. Screenin:47 [facility] ED Fall Risk Assessment (Adult) History of falling in the last 3 months, ph including since admission Yes- fall prone (multiple falls) (3 pts) Confusion or Disorientation Yes (5 pts) Intoxicated or Sedated No (0 pts) Impaired Gait Yes (1 pt) Mobility Assist Device Used Yes (1 pt) Altered Elimination Yes (1 pt) Score/Fall Risk Level 3 or more points = High Risk Oriented to surroundings, Maintained a safe environment, Hourly rounding (assess needs \T\ fall precautionary measures) done, Used ambulatory aids as needed (educated on \T\ assisted with). Abuse screen: Denies threats or abuse. Denies injuries from another. Nutritional screening: No deficits noted. Tuberculosis screening: No symptoms or risk factors identified. Primary Survey: 11:46 NO uncontrolled hemorrhage observed. A: The client is awake and alert. The airway is ph patent. Breathing/Chest: Spontaneous respiratory effort, equal unlabored respirations, breath sounds clear bilaterally, regular pattern, symmetrical chest rise and fall. Circulation: No external hemorrhage present. Regular and strong central pulse, skin warm/dry/normal color. Disability Pupils are equal, round, reactive to light and accommodation. Exposure/Environment: All clothing and personal items were removed. Forensic evidence collection is not deemed to be indicated at this time. Items placed in patient belonging bag. There is no evidence of uncontrolled external bleeding. No obvious injuries are noted at this time. 13:30 Reassessment Alertness and Airway: Awake and alert. The airway is patent. Breathing: ph Spontaneous respiratory effort, equal unlabored respirations, breath sounds clear bilaterally, regular pattern with symmetrical chest rise and fall. Circulation: No external hemorrhage noted. Regular and strong central pulse, skin warm/dry/normal color. Disability: Pupils Pupils are equal, round, reactive to light and accomodation. Secondary Survey: 11:47 HEENT: No deficits noted. Gastrointestinal: No deficits noted. : No signs and/or ph symptoms were reported regarding the genitourinary system. Musculoskeletal: No deficits noted. Assessment: 11:45 General: Appears in no apparent distress. comfortable, Behavior is calm, cooperative. ph Pain: Complains of pain in R hip. Neuro: Level of Consciousness is awake, alert, obeys commands, Oriented to person, place. Cardiovascular: Capillary refill < 3 seconds in bilateral fingers Patient's skin is warm and dry. Respiratory: Airway is patent Respiratory effort is even, unlabored. Derm: Skin is pink, warm \T\ dry. Musculoskeletal: Amputation of right leg BKA. 13:29 Reassessment: Patient appears in no apparent distress at this time. Patient and/or ph family updated on plan of care and expected duration. Pain level reassessed. Report called to HIEN Harden at [facility], awaiting EMS for transport back to facility. 14:13 Reassessment: [facility] at bedside, pt transported back to [facility]. ph Vital Signs: 11:38 Temp 97.3; Weight 72.57 kg; ph 11:52 BP 140 / 68; Pulse 68; Resp 14; Pulse Ox 100% on R/A; cc6 13:30 BP 142 / 72; Pulse 72; Resp 18; Temp 97.5; Pulse Ox 99% on R/A; ph [place] Coma Score: 11:47 Eye Response: spontaneous(4). Motor Response: obeys commands(6). Verbal Response: ph confused(4). Total: 14. 11:52 Eye Response: spontaneous(4). Motor Response: obeys commands(6). Verbal Response: ph confused(4). Total: 14. 13:30 Eye Response: spontaneous(4). Motor Response: obeys commands(6). Verbal Response: ph confused(4). Total: 14. Trauma Score (Adult): 11:47 Eye Response: spontaneous(1); Verbal Response: confused(1); Motor Response: obeys ph commands(2); Systolic BP: > 89 mm Hg(4); Respiratory Rate: 10 to 29 per min(4); Nickolas Score: 14; Trauma Score: 12; confused at baseline 11:52 Eye Response: spontaneous(1); Verbal Response: confused(1); Motor Response: obeys ph commands(2); Systolic BP: > 89 mm Hg(4); Respiratory Rate: 10 to 29 per min(4); [place] Score: 14; Trauma Score: 12 13:30 Eye Response: spontaneous(1); Verbal Response: confused(1); Motor Response: obeys ph commands(2); Systolic BP: > 89 mm Hg(4); Respiratory Rate: 10 to 29 per min(4); [place] Score: 14; Trauma Score: 12 ED Course: 11:32 Patient arrived in ED. rk3 11:32 Anton Ly MD is Attending Physician. rn 11:38 Belen Mcghee RN is Primary Nurse. ph 11:41 Triage completed. ph 11:41 Arm band placed on Patient placed in an exam room, in the treatment room, on pulse ph oximetry. 11:48 Patient has correct armband on for positive identification. Bed in low position. Call ph light in reach. Side rails up X2. Pulse ox on. NIBP on. 11:48 Patient maintains SpO2 saturation greater than 95% on room air. ph 11:48 Thermoregulation: declined blanket at this time. ph 12:07 CT Head Brain wo Cont In Process Unspecified. EDMS 12:45 XRAY Femur RIGHT In Process Unspecified. EDMS 13:30 No provider procedures requiring assistance completed. Patient did not have IV access ph during this emergency room visit. Administered Medications: No medications were administered Medication: 11:49 VIS not applicable for this client. ph Intake: 14:18 PO: 0ml; Total: 0ml. ph Output: 14:18 Urine: 0ml; Total: 0ml. ph Outcome: 13:07 Discharge ordered by . rn 14:13 Discharged to [facility]. Report called to HIEN Harden ph 14:13 Condition: good 14:13 Discharge instructions given to [facility], Instructed on discharge instructions, follow up and referral plans. 14:18 Patient's length of stay was not longer than 2 hours. ph 14:21 Patient left the ED. ph Signatures: Dispatcher [employer] EDMS Anton Ly MD MD rn Belen Mcghee RN RN ph Abbie Mackay RN RN cc6 Freda Perez rk3
--- NOTE | 2025-07-11 13:07 | EDPHYS ---
Physician Documentation [facility] Name: Donaldo English Age: 70 yrs Sex: Male : 1955 Arrival Date: 07/11/2025 Time: : Bed 17 Private MD: ED Physician Anton Ly HPI: 07/11 11:47 This 70 yrs old Male presents to ER via EMS with complaints of Fall Injury. rn 11:47 Details of fall: The patient fell from seated position. EMS reports patient fell from rn wheelchair, fell onto the right side. Unsure if patient hit head. No LOC. No vomiting. Initially patient denied any pain but brought here to be evaluated. Upon arrival patient started reporting mild right hip pain. No back or rib pain. No chest pain. No abdominal pain. No facial pain or injury. No headache.. Historical: - Allergies: 11:41 No Known Allergies; ph - PMHx: 11:41 CAD; CVA; Right sided weakness; Dementia; Depression; diabetes mellitus; DYSPHAGIA; ph HTN; Hypothyroidism; schizoaffective disorder; Seizure; Speech disturbances; - PSHx: 11:41 Quadruple bipass; RIGHT BKA; right foot; ph - Immunization history:: Adult Immunizations unknown. - Infectious Disease History:: Denies. - Immunization history: Last tetanus immunization: unknown. - Family history:: not pertinent. - Social history:: Smoking status: unknown. - Hospitalizations: : No recent hospitalization is reported. ROS: 11:47 Constitutional: Negative for fever, chills, and weight loss, Neck: Negative for injury, rn pain, and swelling, Cardiovascular: Negative for chest pain, palpitations, and edema, Respiratory: Negative for shortness of breath, cough, wheezing, and pleuritic chest pain, Abdomen/GI: Negative for abdominal pain, nausea, vomiting, diarrhea, and constipation, MS/Extremity: Positive for right hip pain Skin: Negative for injury, rash, and discoloration, Neuro: Negative for headache, weakness, numbness, tingling, and seizure, Exam: 11:47 Constitutional: Disheveled patient, no acute distress, resting comfortably, laying on rn his right side Neck: No cervical tenderness Chest/axilla: No rib tenderness or crepitus Cardiovascular: Regular rate and rhythm . No pulse deficits. Respiratory: No increased work of breathing, no retractions or nasal flaring. Abdomen/GI: Soft, nontender MS/ Extremity: Right BKA with mild painful range of motion of the right hip without gross deformity or ecchymosis. No focal bony tenderness Neuro: Awake and alert, GCS 15 Vital Signs: 11:38 Temp 97.3; Weight 72.57 kg; ph 11:52 BP 140 / 68; Pulse 68; Resp 14; Pulse Ox 100% on R/A; cc6 13:30 BP 142 / 72; Pulse 72; Resp 18; Temp 97.5; Pulse Ox 99% on R/A; ph Nickolas Coma Score: 11:47 Eye Response: spontaneous(4). Motor Response: obeys commands(6). Verbal Response: ph confused(4). Total: 14. 11:52 Eye Response: spontaneous(4). Motor Response: obeys commands(6). Verbal Response: ph confused(4). Total: 14. 13:30 Eye Response: spontaneous(4). Motor Response: obeys commands(6). Verbal Response: ph confused(4). Total: 14. Trauma Score (Adult): 11:47 Eye Response: spontaneous(1); Verbal Response: confused(1); Motor Response: obeys ph commands(2); Systolic BP: > 89 mm Hg(4); Respiratory Rate: 10 to 29 per min(4); [place] Score: 14; Trauma Score: 12; confused at baseline 11:52 Eye Response: spontaneous(1); Verbal Response: confused(1); Motor Response: obeys ph commands(2); Systolic BP: > 89 mm Hg(4); Respiratory Rate: 10 to 29 per min(4); [place] Score: 14; Trauma Score: 12 13:30 Eye Response: spontaneous(1); Verbal Response: confused(1); Motor Response: obeys ph commands(2); Systolic BP: > 89 mm Hg(4); Respiratory Rate: 10 to 29 per min(4); Glor[place] Score: 14; Trauma Score: 12 MDM: 11:32 Medical Screening Exam initiated rn 13:05 Differential diagnosis: closed head injury, contusion, fracture, sprain, strain. Data rn reviewed: vital signs, nurses notes, radiologic studies, CT scan, plain films, and as a result, I will discharge patient. Independent interpretation of the following test(s) in the Emergency Department X-Ray: My interpretation is X-ray images right femur negative for acute fracture or dislocation per my interpretation. monitor car operator: rate is 68 beats/min, Rhythm is normal sinus rhythm, regular, with no ectopy, Interpretation: normal rate, normal rhythm. Care significantly affected by the following chronic conditions: CAD, CVA, diabetes, hypertension. Counseling: I had a detailed discussion with the patient and/or guardian regarding the historical points, exam findings, and any diagnostic results supporting the discharge/admit diagnosis, radiology results, the need for outpatient follow up, to return to the emergency department if symptoms worsen or persist or if there are any questions or concerns that arise at home. Special discussion: I discussed with the patient/guardian in detail that at this point there is no indication for admission to the hospital. It is understood, however, that if the symptoms persist or worsen the patient needs to return immediately for re-evaluation. 07/11 11:36 Order name: XRAY Femur RIGHT; Complete Time: 12:55 rn 07/11 11:36 Order name: CT Head Brain wo Cont; Complete Time: 12:55 rn Administered Medications: No medications were administered Disposition Summary: 07/11/25 13:07 Discharge Ordered Notes: Location: Home rn Problem: new rn Symptoms: have improved rn Condition: Stable rn Diagnosis - Contusion of right hip rn - Fall from non-moving wheelchair rn Followup: rn - With: Private Physician - When: As needed - Reason: Recheck today's complaints, Re-evaluation by your physician Discharge Instructions: - Discharge Summary Sheet rn - Contusion rn Forms: - Medication Reconciliation Form rn - Antibiotic returner - Prescription Opioid Use rn - Patient Portal Instructions rn - Leadership Thank You Letter rn Signatures: Dispatcher [employer] Anton Jordan MD MD rn Hall, Patricia, RN RN ph
[2025-07-11 15:12] VITALS: BP 142/72; TEMP 97.5; O2SAT 99
== END 2025-07-11 14:21 | disposition home or self-care (01) ==
LOC: ER 11:27
DX: S70.01XA Contusion of right hip, initial encounter (principal); W05.0XXA Fall from non-moving wheelchair, initial encounter; Z89.511 Acquired absence of right leg below knee
CPT/HCPCS: 70450; 99284